=== PATIENT | male | born 1965 | race Hispanic/Latino ===

== ENCOUNTER 2021-02-05 22:20 | Inpatient (IN) | payer SELFPAY ==
[~2021-02-05] VITALS: Ht 165.1 cm; Wt 88.2 kg
[~2021-02-05 22:20] MED LIST: ETOMIDATE 20MG VIAL IVP ONE; ROCURONIUM BROMIDE 10MG/1ML 5ML VL IV ONE
[2021-02-05 23:02] LABS: BASOPHILS % (AUTO) 0.2 % (0.0-5.0); EOSINOPHILS % (AUTO) 0.1 % (0.0-8.0); HEMATOCRIT 47.4 % (42-54); MEAN CORPUSCULAR HEMOGLOBIN 30.8 pg (27.0-33.0); MEAN CORPUSCULAR HGB CONC 31.6 g/dL (32.0-36.0); MEAN CORPUSCULAR VOLUME 97.3 fL (79-99); MONOCYTES % (AUTO) 8.3 % (3.0-13.0); PLATELET COUNT (AUTO) 148 K/uL (130-400); RED BLOOD CELL COUNT(AUTO) 4.87 MIL/uL (4.50-6.20); RED CELL DISTRIBUTION WIDTH 12.8 % (11.0-15.5); WHITE BLOOD COUNT (AUTO) 9.2 K/uL (4.8-10.8)
[2021-02-05 23:12] LABS: CREATININE 1.1 mg/dL (0.5-1.5); POTASSIUM 4.3 mmol/L (3.5-5.1)
[2021-02-05 23:16] LABS: ALBUMIN 3.4 g/dL (3.5-5.0); BILIRUBIN,TOTAL 0.3 mg/dL (0.2-1.0); TOTAL PROTEIN, SERUM 7.5 g/dL (6.0-8.3)
[2021-02-05] MEDS ORDERED: SOLU-MEDROL 125MG VIAL IVP ONE (23:45)
[2021-02-05 23:51] LABS: INR 0.94 (0.85-1.15); PROTHROMBIN TIME 10.3 SEC (9.6-11.6)
[2021-02-05 23:53] LABS: PARTIAL THROMBOPLASTIN TIME 34.6 SEC (26.3-35.5)
[2021-02-06] VITALS (11 sets, daily range): BP systolic 85–142; BP diastolic 32–89
[2021-02-06 00:09] LABS: ABG BASE EXCESS 0.9 mmol/L (-2.0-3.0); ABG HCO3 30.3 mmol/L (21.0-28.0); ABG OXYGEN SATURATION 84.4 % (95.0-99.0); ABG PCO2 71 mmHg (35-48)
[2021-02-06] MEDS ORDERED: SOLU-MEDROL 125MG VIAL ONE (00:33)
[2021-02-06] MEDS ORDERED: ONDANSETRON 4MG INJ IV PRN (01:15)
[2021-02-06] MEDS ORDERED: LACTULOSE 20 GM/30 ML UDCUP PO PRN (01:15)
[2021-02-06] MEDS ORDERED: MAG/ALUM/SIMETH 30 ML UDCUP PO PRN (01:15)
[2021-02-06] MEDS ORDERED: CEFTRIAXONE 2GM VIAL IVP ONE (01:15)
[2021-02-06] MEDS ORDERED: SOLU-MEDROL 125MG VIAL IVP ONE (01:15)
[2021-02-06] MEDS ORDERED: GUAIFENESIN-DM 200/20 MG 10 ML PO PRN (01:15)
[2021-02-06] MEDS ORDERED: NITROGLYCERIN 0.4 MG SL TAB SL PRN (01:15)
[2021-02-06] MEDS ORDERED: ACETAMINOPHEN 325 MG TAB PO PRN ×2 (01:15)
[2021-02-06] MEDS ORDERED: DEXAMETHASONE SOD PHOSPHATE 4 MG/ML 1ML VIAL IVP SCH (01:15)
[2021-02-06 01:25] LABS: ABG BASE EXCESS 0.5 mmol/L (-2.0-3.0); ABG HCO3 30.1 mmol/L (21.0-28.0); ABG PCO2 72 mmHg (35-48)
[2021-02-06] MEDS ORDERED: 0.9% NACL 250ML IVPB SCH (01:30)
[2021-02-06] MEDS ORDERED: AZITHROMYCIN 500MG VIAL IVPB SCH (01:30)
[2021-02-06] MEDS ORDERED: CEFTRIAXONE 2GM VIAL IVP SCH (01:30)
[2021-02-06 02:20] LABS: FIBRINOGEN 522 mg/dL (180-350)
[2021-02-06 02:21] LABS: CRP QUANTITATIVE 117.5 mg/L (0.00-9.0)
[2021-02-06 02:23] LABS: ABG BASE EXCESS -0.8 mmol/L (-2.0-3.0); ABG OXYGEN SATURATION 93.6 % (95.0-99.0); ABG PCO2 73 mmHg (35-48)
[2021-02-06] MEDS: AZITHROMYCIN 500MG+NS 250ML 250 ML IV SCH ×2 (02:40→09:07)
[2021-02-06 02:52] LABS: D-DIMER 791 ng/mL (0-500)
[2021-02-06 03:46] LABS: APPEARANCE,URINE Clear (CLEAR); BILIRUBIN,URINE Negative (NEGATIVE); COLOR,URINE Yellow (YELLOW); GLUCOSE, URINE (UA) Negative (NEGATIVE); KETONES,URINE Negative (NEGATIVE); LEUKOCYTE ESTERASE ,URINE Negative (NEGATIVE); NITRATE,URINE Negative (NEGATIVE); OCCULT BLOOD,URINE Negative (NEGATIVE); PROTEIN,URINE Negative (NEGATIVE)
[2021-02-06 03:54] LABS: AMPHET/METH SCREEN,URINE NEGATIVE (NEGATIVE); BARBITURATE SCREEN, URINE NEGATIVE (NEGATIVE); BENZODIAZEPINES SCREEN,URINE NEGATIVE (NEGATIVE); CANNABINOID SCREEN,URINE NEGATIVE (NEGATIVE); COCAINE SCREEN,URINE POSITIVE (NEGATIVE); OPIATE SCREEN,URINE POSITIVE (NEGATIVE); PHENCYCLIDINE SCREEN,URINE NEGATIVE (NEGATIVE)
[2021-02-06] MEDS: INSULIN HUMULIN R 100 UNIT/ML 3ML SQ SCH ×4 (06:58→21:00)
[2021-02-06] MEDS ORDERED: GUAIFENESIN SUGAR-FREE 100 MG/5 ML UDCUP ONE (08:57)
[2021-02-06] MEDS ORDERED: FAMOTIDINE 20MG TAB ONE (08:58)
[2021-02-06] MEDS ORDERED: 0.9% NACL 250ML 250 ML ONE (08:59)
[2021-02-06] MEDS ORDERED: IPRATROPIUM/ALBUTEROL SULFATE 3 ML SOLUTION IH SCH ×2 (09:00→14:00)
[2021-02-06] MEDS ORDERED: FAMOTIDINE 20MG VIAL IV SCH (09:00)
[2021-02-06] MEDS: ENOXAPARIN SODIUM 40 MG/0.4 ML SYRINGE SQ SCH (09:07)
[2021-02-06] MEDS ORDERED: SOLU-MEDROL 40MG VIAL IVP SCH (09:39)
[2021-02-06] MEDS: IPRATROPIUM/ALBUTEROL SULFATE 3 ML SOLUTION IH SCH ×3 (10:52→23:18)
[2021-02-06] MEDS ORDERED: PIP/TAZ ZOSYN 3.375G 3.375 GM VIAL IVPB SCH (11:15)
[2021-02-06] MEDS ORDERED: FURO20TA4 PO (12:41)
[2021-02-06] MEDS ORDERED: DOXY100T2 PO (12:41)
[2021-02-06] MEDS ORDERED: OSEL75 PO (12:41)
[2021-02-06] MEDS ORDERED: ATOR10TA69 PO (12:41)
[2021-02-06] MEDS ORDERED: MONT10TA32 PO (12:41)
[2021-02-06] MEDS ORDERED: ALBU8.5H8 IH (12:44)
[2021-02-06] MEDS ORDERED: IPRNEB IH (12:44)
[2021-02-06] MEDS: 0.9%NACL 50ML 50 ML IV SCH ×2 (13:34→20:49)
[2021-02-06] MEDS: ZOSYN 3.375GM +NS 50ML IV SCH ×2 (13:34→20:47)
[2021-02-06] MEDS: GUAIFENESIN-DM 200/20 MG 10 ML PO PRN ×3 (13:34→21:49)
[2021-02-06] MEDS ORDERED: ALBUTEROL INHALER 90MCG/INH IH SCH (14:00)
[2021-02-06] MEDS: FUROSEMIDE 20 MG TABLET PO SCH (16:12)
[2021-02-06] MEDS: BENZONATATE 100 MG CAPSULE PO PRN ×2 (18:03→21:49)
[2021-02-06] MEDS ORDERED: IPRATROPIUM/ALBUTEROL SULFATE 3 ML SOLUTION IH ONE (18:36)
[2021-02-06] MEDS: BUDESONIDE 0.5 MG/2 ML INH IH SCH (19:23)
[2021-02-06] MEDS: ACETAMINOPHEN WITH CODEINE 1 TAB TAB PO PRN (19:25)
[2021-02-06] MEDS: ATORVASTATIN 10 MG TABLET PO SCH (20:48)
[2021-02-06] MEDS: SOLU-MEDROL 125MG VIAL IVP SCH (20:48)
[2021-02-06] MEDS: MONTELUKAST SODIUM 10 MG TAB PO SCH (20:49)
[2021-02-06] MEDS ORDERED: SODIUM CHLORIDE 3% FOR INHALATION 4 ML/AMP VIAL.NEB IH ONE (22:39)
[2021-02-07] VITALS (24 sets, daily range): BP systolic 87–165; BP diastolic 58–116
[2021-02-07] MEDS ORDERED: LORAZEPAM 2 MG/ML 1 ML VIAL IVP ONE
[2021-02-07] MEDS ORDERED: GUAIFENESIN-CODEINE 5 ML SYRUP PO ONE (00:15)
[2021-02-07] MEDS: GUAIFENESIN-CODEINE 5 ML SYRUP PO PRN (00:22)
[2021-02-07] MEDS ORDERED: LORAZEPAM 2 MG/ML 1 ML VIAL ONE (01:06)
[2021-02-07 04:00] LABS: ABG BASE EXCESS 1.7 mmol/L (-2.0-3.0); ABG HCO3 36.9 mmol/L (21.0-28.0); ABG OXYGEN SATURATION 90.9 % (95.0-99.0); ABG PCO2 133 mmHg (35-48)
[2021-02-07 04:01] LABS: BASOPHILS % (AUTO) 0.1 % (0.0-5.0); LYMPHOCYTES % (AUTO) 3.3 % (21.0-51.0); MEAN CORPUSCULAR HEMOGLOBIN 30.5 pg (27.0-33.0); MEAN CORPUSCULAR HGB CONC 30.8 g/dL (32.0-36.0); MEAN CORPUSCULAR VOLUME 98.8 fL (79-99); MONOCYTES % (AUTO) 5.8 % (3.0-13.0); NEUTROPHILS % (AUTO) 90.4 % (40.0-77.0); PLATELET COUNT (AUTO) 160 K/uL (130-400); RED BLOOD CELL COUNT(AUTO) 4.86 MIL/uL (4.50-6.20); RED CELL DISTRIBUTION WIDTH 12.4 % (11.0-15.5); WHITE BLOOD COUNT (AUTO) 13.9 K/uL (4.8-10.8)
[2021-02-07 04:21] LABS: ALBUMIN 3.4 g/dL (3.5-5.0); BILIRUBIN,TOTAL 0.3 mg/dL (0.2-1.0); MAGNESIUM 2.5 mg/dL (1.80-2.40); TOTAL PROTEIN, SERUM 7.7 g/dL (6.0-8.3)
[2021-02-07] MEDS ORDERED: PROPOFOL 1000 MG/100 ML 100 ML IV ONE (04:39)
[2021-02-07] MEDS: 0.9%NACL 50ML 50 ML IV SCH ×3 (04:49→20:45)
[2021-02-07] MEDS: ZOSYN 3.375GM +NS 50ML IV SCH ×3 (04:59→20:45)
[2021-02-07] MEDS ORDERED: MIDAZOLAM HCL 50 MG in 0.9%NACL 50ML 50 ML IV SCH (05:15)
[2021-02-07 05:32] LABS: ABG BASE EXCESS 0.1 mmol/L (-2.0-3.0); ABG HCO3 32.4 mmol/L (21.0-28.0); ABG OXYGEN SATURATION 95.1 % (95.0-99.0); ABG PCO2 97 mmHg (35-48)
[2021-02-07] MEDS ORDERED: MIDAZOLAM HCL 100 MG in 0.9%NACL 50ML 100 ML IV SCH (05:45)
[2021-02-07] MEDS: INSULIN HUMULIN R 100 UNIT/ML 3ML SQ SCH ×4 (05:50→20:46)
[2021-02-07] MEDS: IPRATROPIUM/ALBUTEROL SULFATE 3 ML SOLUTION IH SCH ×4 (06:32→23:20)
[2021-02-07] MEDS: BUDESONIDE 0.5 MG/2 ML INH IH SCH ×2 (06:45→18:50)
[2021-02-07] MEDS: PROPOFOL 1000 MG/100 ML 100 ML IV SCH ×6 (06:48→23:23)
[2021-02-07] MEDS: MIDAZOLAM 100MG-0.9% NS 100ML 100 ML IV SCH ×2 (07:11→17:36)
[2021-02-07] MEDS ORDERED: FOLIC ACID 5 MG/ML VIAL IV ONE (08:45)
[2021-02-07] MEDS: SOLU-MEDROL 125MG VIAL IVP SCH ×2 (09:49→20:46)
[2021-02-07] MEDS: FUROSEMIDE 20 MG TABLET PO SCH (09:50)
[2021-02-07] MEDS: ENOXAPARIN SODIUM 40 MG/0.4 ML SYRINGE SQ SCH (09:50)
[2021-02-07] MEDS ORDERED: THIAMINE HCL IM SCH (10:00)
[2021-02-07] MEDS ORDERED: FOLIC ACID IM SCH (10:00)
[2021-02-07] MEDS ORDERED: [UNRECOGNIZED DRUG - OTHER] IM SCH (10:00)
[2021-02-07 10:48] LABS: ABG BASE EXCESS 5.7 mmol/L (-2.0-3.0); ABG HCO3 32.3 mmol/L (21.0-28.0); ABG OXYGEN SATURATION 90.1 % (95.0-99.0); ABG PCO2 55 mmHg (35-48)
[2021-02-07] MEDS: ATORVASTATIN 10 MG TABLET PO SCH (20:46)
[2021-02-07] MEDS: MONTELUKAST SODIUM 10 MG TAB PO SCH (20:46)
[2021-02-08] VITALS (24 sets, daily range): BP systolic 92–167; BP diastolic 59–94
[2021-02-08] MEDS: MIDAZOLAM 100MG-0.9% NS 100ML 100 ML IV SCH ×3 (00:52→22:06)
[2021-02-08] MEDS: PROPOFOL 1000 MG/100 ML 100 ML IV SCH ×5 (02:59→16:29)
[2021-02-08 04:03] LABS: HEMATOCRIT 41.8 % (42-54); MEAN CORPUSCULAR HEMOGLOBIN 31.7 pg (27.0-33.0); MEAN CORPUSCULAR HGB CONC 32.3 g/dL (32.0-36.0); MEAN CORPUSCULAR VOLUME 98.1 fL (79-99); RED BLOOD CELL COUNT(AUTO) 4.26 MIL/uL (4.50-6.20); RED CELL DISTRIBUTION WIDTH 12.8 % (11.0-15.5); WHITE BLOOD COUNT (AUTO) 8.4 K/uL (4.8-10.8)
[2021-02-08] MEDS: 0.9%NACL 50ML 50 ML IV SCH ×3 (04:23→20:43)
[2021-02-08] MEDS: ZOSYN 3.375GM +NS 50ML IV SCH ×3 (04:23→20:43)
[2021-02-08 04:48] LABS: ALBUMIN 2.8 g/dL (3.5-5.0); BILIRUBIN,TOTAL 0.4 mg/dL (0.2-1.0); CREATININE 0.8 mg/dL (0.5-1.5); POTASSIUM 4.5 mmol/L (3.5-5.1); TOTAL PROTEIN, SERUM 6.4 g/dL (6.0-8.3)
[2021-02-08 05:23] LABS: ABG BASE EXCESS 3.8 mmol/L (-2.0-3.0); ABG PCO2 80 mmHg (35-48)
[2021-02-08] MEDS ORDERED: FENTANYL 2500MCG+NS 250ML 250 ML IV ONE (05:51)
[2021-02-08] MEDS: IPRATROPIUM/ALBUTEROL SULFATE 3 ML SOLUTION IH SCH ×4 (06:09→23:30)
[2021-02-08] MEDS: BUDESONIDE 0.5 MG/2 ML INH IH SCH ×2 (06:18→18:15)
[2021-02-08] MEDS: INSULIN HUMULIN R 100 UNIT/ML 3ML SQ SCH ×4 (06:28→23:00)
[2021-02-08 07:33] LABS: ABG BASE EXCESS 5.9 mmol/L (-2.0-3.0); ABG HCO3 32.2 mmol/L (21.0-28.0); ABG OXYGEN SATURATION 92.3 % (95.0-99.0); ABG PCO2 53 mmHg (35-48)
[2021-02-08] MEDS: THIAMINE HCL 100 MG/ML 2ML VIAL IM SCH (07:43)
[2021-02-08] MEDS: SOLU-MEDROL 125MG VIAL IVP SCH ×2 (07:43→20:43)
[2021-02-08] MEDS: FUROSEMIDE 20 MG TABLET PO SCH (07:43)
[2021-02-08] MEDS: ENOXAPARIN SODIUM 40 MG/0.4 ML SYRINGE SQ SCH (07:44)
[2021-02-08] MEDS ORDERED: PHARMACY COMMUNICATION MISC SCH (12:43)
[2021-02-08 16:30] LABS: ABG BASE EXCESS 2.5 mmol/L (-2.0-3.0); ABG OXYGEN SATURATION 95.5 % (95.0-99.0); ABG PCO2 52 mmHg (35-48)
[2021-02-08] MEDS ORDERED: FENTANYL 2500MCG+NS 250ML 250 ML IV SCH (16:30)
[2021-02-08] MEDS: ATORVASTATIN 10 MG TABLET PO SCH (20:44)
[2021-02-08] MEDS: MONTELUKAST SODIUM 10 MG TAB PO SCH (20:44)
[2021-02-09] VITALS (21 sets, daily range): BP systolic 115–175; BP diastolic 64–104
[2021-02-09] MEDS: 0.9%NACL 50ML 50 ML IV SCH ×3 (04:37→20:41)
[2021-02-09] MEDS: ZOSYN 3.375GM +NS 50ML IV SCH ×3 (04:37→20:41)
[2021-02-09 06:20] LABS: EOSINOPHILS % (AUTO) 1.5 % (0.0-8.0); HEMATOCRIT 42.5 % (42-54); LYMPHOCYTES % (AUTO) 10.4 % (21.0-51.0); MEAN CORPUSCULAR HEMOGLOBIN 30.9 pg (27.0-33.0); MEAN CORPUSCULAR HGB CONC 31.8 g/dL (32.0-36.0); MEAN CORPUSCULAR VOLUME 97.3 fL (79-99); MONOCYTES % (AUTO) 12.7 % (3.0-13.0); PLATELET COUNT (AUTO) 142 K/uL (130-400); RED BLOOD CELL COUNT(AUTO) 4.37 MIL/uL (4.50-6.20); WHITE BLOOD COUNT (AUTO) 7.8 K/uL (4.8-10.8)
[2021-02-09 06:31] LABS: CREATININE 0.6 mg/dL (0.5-1.5); MAGNESIUM 2.5 mg/dL (1.80-2.40); POTASSIUM 4.3 mmol/L (3.5-5.1)
[2021-02-09] MEDS: IPRATROPIUM/ALBUTEROL SULFATE 3 ML SOLUTION IH SCH ×4 (06:36→23:44)
[2021-02-09] MEDS: BUDESONIDE 0.5 MG/2 ML INH IH SCH ×2 (06:36→18:39)
[2021-02-09 06:45] LABS: ABG BASE EXCESS 3.5 mmol/L (-2.0-3.0); ABG HCO3 29.1 mmol/L (21.0-28.0); ABG OXYGEN SATURATION 95.8 % (95.0-99.0); ABG PCO2 47 mmHg (35-48)
[2021-02-09] MEDS: INSULIN HUMULIN R 100 UNIT/ML 3ML SQ SCH ×3 (06:49→17:25)
[2021-02-09] MEDS: SOLU-MEDROL 125MG VIAL IVP SCH ×2 (08:16→20:41)
[2021-02-09] MEDS: THIAMINE HCL 100 MG/ML 2ML VIAL IM SCH (08:16)
[2021-02-09] MEDS: FUROSEMIDE 20 MG TABLET PO SCH (08:16)
[2021-02-09] MEDS: ENOXAPARIN SODIUM 40 MG/0.4 ML SYRINGE SQ SCH (08:17)
[2021-02-09] MEDS: MIDAZOLAM 100MG-0.9% NS 100ML 100 ML IV SCH (09:30)
[2021-02-09] MEDS ORDERED: HYDRALAZINE 20MG/ML VIAL IV PRN ×2 (10:30→12:00)
[2021-02-09] MEDS: CHLORHEXIDINE GLUCONATE 473 ML MOUTHWASH MM SCH ×2 (11:19→17:24)
[2021-02-09] MEDS: ATORVASTATIN 10 MG TABLET PO SCH (20:41)
[2021-02-09] MEDS: MONTELUKAST SODIUM 10 MG TAB PO SCH (20:41)
[2021-02-10] VITALS (24 sets, daily range): BP systolic 111–153; BP diastolic 63–93
[2021-02-10] MEDS: CHLORHEXIDINE GLUCONATE 473 ML MOUTHWASH MM SCH ×3 (00:10→11:13)
[2021-02-10] MEDS: ZOSYN 3.375GM +NS 50ML IV SCH ×3 (04:57→20:13)
[2021-02-10] MEDS: 0.9%NACL 50ML 50 ML IV SCH ×3 (04:57→20:13)
[2021-02-10] MEDS: MIDAZOLAM 100MG-0.9% NS 100ML 100 ML IV SCH (04:58)
[2021-02-10] MEDS: INSULIN HUMULIN R 100 UNIT/ML 3ML SQ SCH ×5 (06:00→20:16)
[2021-02-10 06:34] LABS: BASOPHILS % (AUTO) 0.2 % (0.0-5.0); EOSINOPHILS % (AUTO) 0.9 % (0.0-8.0); HEMATOCRIT 43.2 % (42-54); LYMPHOCYTES % (AUTO) 10.4 % (21.0-51.0); MEAN CORPUSCULAR HEMOGLOBIN 29.8 pg (27.0-33.0); MEAN CORPUSCULAR HGB CONC 31.7 g/dL (32.0-36.0); MEAN CORPUSCULAR VOLUME 94.1 fL (79-99); MONOCYTES % (AUTO) 8.3 % (3.0-13.0); NEUTROPHILS % (AUTO) 79.8 % (40.0-77.0); PLATELET COUNT (AUTO) 169 K/uL (130-400); RED BLOOD CELL COUNT(AUTO) 4.59 MIL/uL (4.50-6.20); RED CELL DISTRIBUTION WIDTH 12.9 % (11.0-15.5); WHITE BLOOD COUNT (AUTO) 8.2 K/uL (4.8-10.8)
[2021-02-10 06:49] LABS: CREATININE 0.6 mg/dL (0.5-1.5); POTASSIUM 4.1 mmol/L (3.5-5.1)
[2021-02-10] MEDS: IPRATROPIUM/ALBUTEROL SULFATE 3 ML SOLUTION IH SCH ×4 (06:50→23:16)
[2021-02-10] MEDS: BUDESONIDE 0.5 MG/2 ML INH IH SCH ×2 (06:50→18:18)
[2021-02-10] MEDS ORDERED: DEXMEDETOMIDINE HCL 400 MCG in 0.9%NACL 100ML 100 ML IV SCH (08:30)
[2021-02-10] MEDS: DIAZEPAM 5 MG TABLET NG SCH ×2 (09:23→16:36)
[2021-02-10] MEDS: PANTOPRAZOLE 40 MG/VIAL IVP SCH (09:23)
[2021-02-10] MEDS: FOLIC ACID 5 MG/ML VIAL IV SCH (09:24)
[2021-02-10] MEDS: ENOXAPARIN SODIUM 40 MG/0.4 ML SYRINGE SQ SCH (09:24)
[2021-02-10] MEDS: FUROSEMIDE 20 MG TABLET PO SCH (09:25)
[2021-02-10] MEDS: THIAMINE HCL 100 MG/ML 2ML VIAL IM SCH (09:25)
[2021-02-10] MEDS: SOLU-MEDROL 125MG VIAL IVP SCH ×2 (09:26→20:13)
[2021-02-10 11:57] LABS: ABG BASE EXCESS 2.9 mmol/L (-2.0-3.0); ABG HCO3 30.7 mmol/L (21.0-28.0); ABG OXYGEN SATURATION 93.7 % (95.0-99.0); ABG PCO2 61 mmHg (35-48)
[2021-02-10 19:18] LABS: ABG BASE EXCESS 5.5 mmol/L (-2.0-3.0); ABG HCO3 33.4 mmol/L (21.0-28.0); ABG OXYGEN SATURATION 94.8 % (95.0-99.0); ABG PCO2 62 mmHg (35-48)
[2021-02-10] MEDS: ATORVASTATIN 10 MG TABLET PO SCH (20:15)
[2021-02-10] MEDS: MONTELUKAST SODIUM 10 MG TAB PO SCH (20:15)
[2021-02-11] VITALS (24 sets, daily range): BP systolic 98–148; BP diastolic 59–91
[2021-02-11] MEDS: DIAZEPAM 5 MG TABLET NG SCH ×2 (01:00→08:28)
[2021-02-11 03:32] LABS: HEMATOCRIT 47.2 % (42-54); MEAN CORPUSCULAR HEMOGLOBIN 30.3 pg (27.0-33.0); MEAN CORPUSCULAR HGB CONC 31.6 g/dL (32.0-36.0); MEAN CORPUSCULAR VOLUME 96.1 fL (79-99); RED BLOOD CELL COUNT(AUTO) 4.91 MIL/uL (4.50-6.20); RED CELL DISTRIBUTION WIDTH 12.3 % (11.0-15.5)
[2021-02-11 03:46] LABS: CREATININE 0.6 mg/dL (0.5-1.5); POTASSIUM 4.5 mmol/L (3.5-5.1)
[2021-02-11 05:07] LABS: ABG BASE EXCESS 5.6 mmol/L (-2.0-3.0); ABG HCO3 34.2 mmol/L (21.0-28.0); ABG OXYGEN SATURATION 93.2 % (95.0-99.0); ABG PCO2 67 mmHg (35-48)
[2021-02-11] MEDS: INSULIN HUMULIN R 100 UNIT/ML 3ML SQ SCH ×4 (05:15→21:00)
[2021-02-11] MEDS: 0.9%NACL 50ML 50 ML IV SCH ×3 (05:15→20:01)
[2021-02-11] MEDS: ZOSYN 3.375GM +NS 50ML IV SCH ×3 (05:15→20:01)
[2021-02-11] MEDS: IPRATROPIUM/ALBUTEROL SULFATE 3 ML SOLUTION IH SCH ×4 (06:24→23:55)
[2021-02-11] MEDS: BUDESONIDE 0.5 MG/2 ML INH IH SCH ×2 (06:24→18:53)
[2021-02-11] MEDS ORDERED: COMPOUND IV REFRIGERATED 1 EACH IVSOLN MISC PRN (08:00)
[2021-02-11] MEDS: ENOXAPARIN SODIUM 40 MG/0.4 ML SYRINGE SQ SCH (08:26)
[2021-02-11] MEDS: THIAMINE HCL 100 MG/ML 2ML VIAL IM SCH (08:27)
[2021-02-11] MEDS: PANTOPRAZOLE 40 MG/VIAL IVP SCH (08:27)
[2021-02-11] MEDS: FOLIC ACID 5 MG/ML VIAL IV SCH (08:27)
[2021-02-11] MEDS: SOLU-MEDROL 125MG VIAL IVP SCH ×2 (08:27→20:02)
[2021-02-11] MEDS: FUROSEMIDE 20 MG TABLET PO SCH (08:28)
[2021-02-11] MEDS: ATORVASTATIN 10 MG TABLET PO SCH (20:02)
[2021-02-11] MEDS: MONTELUKAST SODIUM 10 MG TAB PO SCH (20:02)
[2021-02-11] MEDS: GUAIFENESIN-DM 200/20 MG 10 ML PO PRN (21:18)
[2021-02-12] VITALS (15 sets, daily range): BP systolic 119–158; BP diastolic 70–101
[2021-02-12] MEDS: GUAIFENESIN-DM 200/20 MG 10 ML PO PRN ×3 (02:58→16:57)
[2021-02-12 03:45] LABS: BASOPHILS % (AUTO) 0.2 % (0.0-5.0); HEMATOCRIT 48.2 % (42-54); LYMPHOCYTES % (AUTO) 7.3 % (21.0-51.0); MEAN CORPUSCULAR HEMOGLOBIN 30.4 pg (27.0-33.0); MEAN CORPUSCULAR HGB CONC 31.7 g/dL (32.0-36.0); MEAN CORPUSCULAR VOLUME 95.6 fL (79-99); MONOCYTES % (AUTO) 9.9 % (3.0-13.0); NEUTROPHILS % (AUTO) 81.9 % (40.0-77.0); PLATELET COUNT (AUTO) 201 K/uL (130-400); RED BLOOD CELL COUNT(AUTO) 5.04 MIL/uL (4.50-6.20); WHITE BLOOD COUNT (AUTO) 9.6 K/uL (4.8-10.8)
[2021-02-12 04:05] LABS: CREATININE 0.6 mg/dL (0.5-1.5); MAGNESIUM 2.4 mg/dL (1.80-2.40); PHOSPHORUS 3.9 mg/dL (2.5-4.9); POTASSIUM 4.3 mmol/L (3.5-5.1)
[2021-02-12] MEDS: ZOSYN 3.375GM +NS 50ML IV SCH (04:42)
[2021-02-12] MEDS: 0.9%NACL 50ML 50 ML IV SCH (04:42)
[2021-02-12] MEDS: IPRATROPIUM/ALBUTEROL SULFATE 3 ML SOLUTION IH SCH ×4 (06:12→23:45)
[2021-02-12] MEDS: BUDESONIDE 0.5 MG/2 ML INH IH SCH ×2 (06:13→19:06)
[2021-02-12] MEDS: INSULIN HUMULIN R 100 UNIT/ML 3ML SQ SCH ×4 (07:30→20:54)
[2021-02-12] MEDS: THIAMINE HCL 100 MG/ML 2ML VIAL IM SCH (09:00)
[2021-02-12] MEDS ORDERED: PANTOPRAZOLE 40 MG TAB DR ONE (09:20)
[2021-02-12] MEDS ORDERED: FOLIC ACID 1 MG TABLET ONE (09:20)
[2021-02-12] MEDS: FUROSEMIDE 20 MG TABLET PO SCH (09:26)
[2021-02-12] MEDS: SOLU-MEDROL 125MG VIAL IVP SCH (09:26)
[2021-02-12] MEDS: ENOXAPARIN SODIUM 40 MG/0.4 ML SYRINGE SQ SCH (09:27)
[2021-02-12] MEDS: BENZONATATE 100 MG CAPSULE PO PRN ×2 (09:27→23:34)
[2021-02-12] MEDS: FOLIC ACID 1 MG TABLET PO SCH (11:05)
[2021-02-12] MEDS: PANTOPRAZOLE 40 MG TAB DR PO SCH (11:06)
[2021-02-12] MEDS ORDERED: SOLU-MEDROL 125MG VIAL ONE (19:26)
[2021-02-12] MEDS: ATORVASTATIN 10 MG TABLET PO SCH (20:02)
[2021-02-12] MEDS: MONTELUKAST SODIUM 10 MG TAB PO SCH (20:03)
[2021-02-12] MEDS: SOLU-MEDROL 40MG VIAL IVP SCH (20:03)
[2021-02-13] VITALS (7 sets, daily range): BP systolic 122–145; BP diastolic 67–109
[2021-02-13] MEDS: ACETAMINOPHEN WITH CODEINE 1 TAB TAB PO PRN (00:43)
[2021-02-13 05:27] LABS: HEMATOCRIT 47.6 % (42-54); MEAN CORPUSCULAR HEMOGLOBIN 30.4 pg (27.0-33.0); MEAN CORPUSCULAR HGB CONC 32.6 g/dL (32.0-36.0); MEAN CORPUSCULAR VOLUME 93.3 fL (79-99); RED BLOOD CELL COUNT(AUTO) 5.1 MIL/uL (4.50-6.20); RED CELL DISTRIBUTION WIDTH 11.9 % (11.0-15.5); WHITE BLOOD COUNT (AUTO) 10.9 K/uL (4.8-10.8)
[2021-02-13 05:52] LABS: CREATININE 0.7 mg/dL (0.5-1.5); MAGNESIUM 2.4 mg/dL (1.80-2.40); PHOSPHORUS 3.2 mg/dL (2.5-4.9); POTASSIUM 3.9 mmol/L (3.5-5.1)
[2021-02-13] MEDS: IPRATROPIUM/ALBUTEROL SULFATE 3 ML SOLUTION IH SCH ×4 (06:55→23:33)
[2021-02-13] MEDS: BUDESONIDE 0.5 MG/2 ML INH IH SCH ×2 (06:55→20:02)
[2021-02-13] MEDS: INSULIN HUMULIN R 100 UNIT/ML 3ML SQ SCH ×4 (07:03→21:00)
[2021-02-13] MEDS: FOLIC ACID 1 MG TABLET PO SCH (09:10)
[2021-02-13] MEDS: THIAMINE HCL 100 MG TABLET PO SCH (09:10)
[2021-02-13] MEDS: PANTOPRAZOLE 40 MG TAB DR PO SCH (09:10)
[2021-02-13] MEDS: SOLU-MEDROL 40MG VIAL IVP SCH ×2 (09:11→21:34)
[2021-02-13] MEDS: FUROSEMIDE 20 MG TABLET PO SCH (09:11)
[2021-02-13] MEDS: ENOXAPARIN SODIUM 40 MG/0.4 ML SYRINGE SQ SCH (09:12)
[2021-02-13] MEDS ORDERED: KCL 20 MEQ ERTAB PO SCH (12:30)
[2021-02-13] MEDS: MONTELUKAST SODIUM 10 MG TAB PO SCH (21:34)
[2021-02-13] MEDS: DILTIAZEM 60MG TAB PO SCH (21:34)
[2021-02-13] MEDS: ATORVASTATIN 10 MG TABLET PO SCH (21:34)
[2021-02-13] MEDS ORDERED: TEMAZEPAM 15 MG CAPSULE PO ONE (22:30)
[2021-02-14] VITALS: BP 107/65
[2021-02-14 04:00] VITALS: BP 107/64
[2021-02-14] MEDS: DILTIAZEM 60MG TAB PO SCH ×2 (06:01→13:24)
[2021-02-14] MEDS: INSULIN HUMULIN R 100 UNIT/ML 3ML SQ SCH ×2 (06:02→11:30)
[2021-02-14] MEDS: GUAIFENESIN-CODEINE 5 ML SYRUP PO PRN (06:16)
[2021-02-14 06:28] LABS: CREATININE 0.6 mg/dL (0.5-1.5); MAGNESIUM 2.4 mg/dL (1.80-2.40); POTASSIUM 5.1 mmol/L (3.5-5.1)
[2021-02-14 07:05] LABS: BASOPHILS % (AUTO) 0.2 % (0.0-5.0); HEMATOCRIT 48.7 % (42-54); LYMPHOCYTES % (AUTO) 7.7 % (21.0-51.0); MEAN CORPUSCULAR HEMOGLOBIN 30.3 pg (27.0-33.0); MEAN CORPUSCULAR HGB CONC 31.6 g/dL (32.0-36.0); MEAN CORPUSCULAR VOLUME 95.9 fL (79-99); MONOCYTES % (AUTO) 8.5 % (3.0-13.0); NEUTROPHILS % (AUTO) 82.8 % (40.0-77.0); PLATELET COUNT (AUTO) 174 K/uL (130-400); RED BLOOD CELL COUNT(AUTO) 5.08 MIL/uL (4.50-6.20)
[2021-02-14] MEDS: IPRATROPIUM/ALBUTEROL SULFATE 3 ML SOLUTION IH SCH ×2 (07:24→11:57)
[2021-02-14] MEDS: BUDESONIDE 0.5 MG/2 ML INH IH SCH (07:24)
[2021-02-14 08:24] VITALS: BP 120/73
[2021-02-14] MEDS: FUROSEMIDE 20 MG TABLET PO SCH (09:26)
[2021-02-14] MEDS: THIAMINE HCL 100 MG TABLET PO SCH (09:26)
[2021-02-14] MEDS: FOLIC ACID 1 MG TABLET PO SCH (09:26)
[2021-02-14] MEDS: SOLU-MEDROL 40MG VIAL IVP SCH (09:27)
[2021-02-14] MEDS: ENOXAPARIN SODIUM 40 MG/0.4 ML SYRINGE SQ SCH (09:27)
[2021-02-14] MEDS: PANTOPRAZOLE 40 MG TAB DR PO SCH (09:27)
[2021-02-14 12:13] VITALS: BP 118/83
[2021-02-14] MEDS ORDERED: DILT120T5 PO (13:14)
[2021-02-14] MEDS ORDERED: METH4TAB3 PO (13:14)
[2021-02-14] MEDS ORDERED: PANT40TA PO (13:14)
[2021-02-14] MEDS ORDERED: ALBU8.5H8 IH (13:14)
[2021-02-14] MEDS ORDERED: BUDE180H IH (13:14)
== END 2021-02-14 14:42 | disposition home or self-care (01) | DRG 208 ==
LOC: EDH 22:20 → EDHIP 22:21 → 2BH 02-06 08:13 → 2DH 02-06 10:29 → 3DH 02-12 18:07 → 4DH 02-13 13:21
PROVIDERS: ADMIT Family Medicine; ATTEND Family Medicine
PROC: 5A09357 Assistance with Respiratory Ventilation, Less than 24 Consecutive Hours, Continuous Positive Airway Pressure (ICD-10-PCS; 2021-02-06)
PROC: 5A1945Z Respiratory Ventilation, 24-96 Consecutive Hours (ICD-10-PCS; principal; 2021-02-07)
PROC: 0BH17EZ Insertion of Endotracheal Airway into Trachea, Via Natural or Artificial Opening (ICD-10-PCS; 2021-02-07)
PROC: 02H633Z Insertion of Infusion Device into Right Atrium, Percutaneous Approach (ICD-10-PCS; 2021-02-07)
PROC: B548ZZA Ultrasonography of Superior Vena Cava, Guidance (ICD-10-PCS; 2021-02-07)
PROC: 5A1935Z Respiratory Ventilation, Less than 24 Consecutive Hours (ICD-10-PCS; 2021-02-10)
PROC: 5A09357 Assistance with Respiratory Ventilation, Less than 24 Consecutive Hours, Continuous Positive Airway Pressure (ICD-10-PCS; 2021-02-10)
PROC: 5A09357 Assistance with Respiratory Ventilation, Less than 24 Consecutive Hours, Continuous Positive Airway Pressure (ICD-10-PCS; 2021-02-11)
PROC: 5A09357 Assistance with Respiratory Ventilation, Less than 24 Consecutive Hours, Continuous Positive Airway Pressure (ICD-10-PCS; 2021-02-13)
DX: J18.9 Pneumonia, unspecified organism (principal); J96.21 Acute and chronic respiratory failure with hypoxia; J96.22 Acute and chronic respiratory failure with hypercapnia; I50.33 Acute on chronic diastolic (congestive) heart failure; J44.0 Chronic obstructive pulmonary disease with (acute) lower respiratory infection; E87.4 Mixed disorder of acid-base balance; J45.901 Unspecified asthma with (acute) exacerbation; J44.1 Chronic obstructive pulmonary disease with (acute) exacerbation; I11.0 Hypertensive heart disease with heart failure; G47.33 Obstructive sleep apnea (adult) (pediatric); F11.10 Opioid abuse, uncomplicated; F14.10 Cocaine abuse, uncomplicated; E66.01 Morbid (severe) obesity due to excess calories; I49.3 Ventricular premature depolarization; I48.0 Paroxysmal atrial fibrillation; K76.0 Fatty (change of) liver, not elsewhere classified; R16.0 Hepatomegaly, not elsewhere classified; F17.200 Nicotine dependence, unspecified, uncomplicated; Z20.822 Contact with and (suspected) exposure to COVID-19; Z91.19 Patient's noncompliance with other medical treatment and regimen; Z99.81 Dependence on supplemental oxygen; Z79.899 Other long term (current) drug therapy; Z91.041 Radiographic dye allergy status; Z68.35 Body mass index [BMI] 35.0-35.9, adult
CPT/HCPCS: 31500; 36415; 36600; 71045; 71250; 76705; 80048; 80053; 80061; 80305; 81003; 82435; 82728; 82803; 82947; 82948; 83605; 83615; 83735; 83880; 84100; 84132; 84145; 84295; 84484; 85018; 85025; 85027; 85378; 85384; 85610; 85730; 86140; 87040; 87071; 87205; 87449; 87635; 87804; 87880; 92526; 92610; 93005; 93306; 94002; 94003; 94640; 94660; 94667; 94668; 97039; C1751; C1894; C9113; C9803; G0378; J0456; J0696; J1650; J1815; J2060; J2543; J2704; J2920; J2930; J3010; J3411; J3490; J7050

== ENCOUNTER 2021-05-19 18:15 | Inpatient (IN) | payer SELFPAY ==
[~2021-05-19] VITALS: Ht 165.1 cm; Wt 91.4 kg
[~2021-05-19 18:15] MED LIST changes: +ALBU8.5H8 IH; +ATOR10TA69 PO; +BUDE180H IH; +DILT120T5 PO; +DOXY100T2 PO; +FURO20TA4 PO; +IPRNEB IH; +METH4TAB3 PO; +MONT10TA32 PO; +PANT40TA PO; -ROCURONIUM BROMIDE 10MG/1ML 5ML VL IV ONE; +SUCCINYLCHOLINE CHLORIDE 20 MG/ML 10 ML VIAL IVP ONE
[2021-05-19 18:51] LABS: BASOPHILS % (AUTO) 0.4 % (0.0-5.0); EOSINOPHILS % (AUTO) 0.1 % (0.0-8.0); HEMATOCRIT 46.8 % (42-54); LYMPHOCYTES % (AUTO) 8.9 % (21.0-51.0); MEAN CORPUSCULAR HEMOGLOBIN 30.3 pg (27.0-33.0); MEAN CORPUSCULAR VOLUME 97.9 fL (79-99); MONOCYTES % (AUTO) 16.5 % (3.0-13.0); NEUTROPHILS % (AUTO) 73.6 % (40.0-77.0); PLATELET COUNT (AUTO) 151 K/uL (130-400); RED BLOOD CELL COUNT(AUTO) 4.78 MIL/uL (4.50-6.20); RED CELL DISTRIBUTION WIDTH 13.1 % (11.0-15.5); WHITE BLOOD COUNT (AUTO) 7.9 K/uL (4.8-10.8)
[2021-05-19 19:13] LABS: ABG BASE EXCESS 2.6 mmol/L (-2.0-3.0); ABG OXYGEN SATURATION 87.8 % (95.0-99.0); ABG PCO2 81 mmHg (35-48)
[2021-05-19 19:14] LABS: CREATININE 0.9 mg/dL (0.5-1.5); POTASSIUM 3.5 mmol/L (3.5-5.1)
[2021-05-19 19:19] LABS: ALBUMIN 3.6 g/dL (3.5-5.0); BILIRUBIN,TOTAL 0.2 mg/dL (0.2-1.0); TOTAL PROTEIN, SERUM 7.8 g/dL (6.0-8.3)
[2021-05-19] MEDS ORDERED: 0.9% NACL 250ML IVPB ONE (20:30)
[2021-05-19] MEDS ORDERED: CEFTRIAXONE 1G VIAL IVP ONE (20:30)
[2021-05-19] MEDS ORDERED: SOLU-MEDROL 125MG VIAL IVP ONE (20:30)
[2021-05-19] MEDS ORDERED: AZITHROMYCIN 500MG+NS 250ML IV ONE (21:00)
[2021-05-19] MEDS ORDERED: ALBUTEROL 0.083% 2.5 MG/3 ML INH IH ONE ×3 (21:00)
[2021-05-19] MEDS ORDERED: LORAZEPAM 2 MG/ML 1 ML VIAL ONE (22:16)
[2021-05-19] MEDS ORDERED: ACETAMINOPHEN 325 MG TAB ONE (22:16)
[2021-05-19 23:53] LABS: ABG BASE EXCESS -1.1 mmol/L (-2.0-3.0); ABG HCO3 32.1 mmol/L (21.0-28.0); ABG OXYGEN SATURATION 78.5 % (95.0-99.0); ABG PCO2 104 mmHg (35-48)
[2021-05-20] VITALS (21 sets, daily range): BP systolic 80–165; BP diastolic 53–92
[2021-05-20] MEDS ORDERED: ALBUTEROL 0.083% 2.5 MG/3 ML INH IH ONE (00:01)
[2021-05-20] MEDS ORDERED: PROPOFOL 1000 MG/100 ML 100 ML IV ONE (00:38)
[2021-05-20 01:03] LABS: AMPHET/METH SCREEN,URINE NEGATIVE (NEGATIVE); BARBITURATE SCREEN, URINE NEGATIVE (NEGATIVE); BENZODIAZEPINES SCREEN,URINE NEGATIVE (NEGATIVE); CANNABINOID SCREEN,URINE NEGATIVE (NEGATIVE); COCAINE SCREEN,URINE POSITIVE (NEGATIVE); OPIATE SCREEN,URINE NEGATIVE (NEGATIVE); PHENCYCLIDINE SCREEN,URINE NEGATIVE (NEGATIVE)
[2021-05-20] MEDS: LEVOFLOXACIN 500 MG/D5W 100 ML 100 ML IV SCH ×2 (01:11→23:01)
[2021-05-20 02:17] LABS: ABG BASE EXCESS 3.4 mmol/L (-2.0-3.0); ABG HCO3 32.1 mmol/L (21.0-28.0); ABG OXYGEN SATURATION 92.4 % (95.0-99.0); ABG PCO2 68 mmHg (35-48)
[2021-05-20] MEDS ORDERED: FENTANYL 2500MCG+NS 250ML 250 ML IV ONE ×2 (02:39→19:19)
[2021-05-20] MEDS ORDERED: MIDAZOLAM HCL 5 MG/ML 2ML VIAL IV ONE (02:41)
[2021-05-20] MEDS ORDERED: MIDAZOLAM 50MG-0.9% NS 50ML 50 ML BAG IV SCH (03:00)
[2021-05-20] MEDS ORDERED: FENTANYL CITRATE PF 0.05 MG/ML 1,000 MCG in 0.9%NACL 100ML 100 ML IVPB SCH (03:00)
[2021-05-20] MEDS ORDERED: SOLU-MEDROL 125MG VIAL IVP SCH (05:00)
[2021-05-20] MEDS: IPRATROPIUM/ALBUTEROL SULFATE 3 ML SOLUTION IH SCH ×4 (06:13→19:18)
[2021-05-20 07:13] LABS: HEMATOCRIT 45.8 % (42-54); MEAN CORPUSCULAR VOLUME 96.8 fL (79-99); RED BLOOD CELL COUNT(AUTO) 4.73 MIL/uL (4.50-6.20); RED CELL DISTRIBUTION WIDTH 12.9 % (11.0-15.5); WHITE BLOOD COUNT (AUTO) 7.2 K/uL (4.8-10.8)
[2021-05-20 07:26] LABS: CREATININE 0.9 mg/dL (0.5-1.5); MAGNESIUM 2.4 mg/dL (1.80-2.40); POTASSIUM 4.7 mmol/L (3.5-5.1)
[2021-05-20] MEDS: INSULIN HUMULIN R 100 UNIT/ML 3ML SQ SCH ×3 (07:30→16:30)
[2021-05-20 08:16] LABS: ABG BASE EXCESS 4.3 mmol/L (-2.0-3.0); ABG HCO3 31.2 mmol/L (21.0-28.0); ABG OXYGEN SATURATION 89.8 % (95.0-99.0); ABG PCO2 55 mmHg (35-48)
[2021-05-20] MEDS ORDERED: PROPOFOL 10 MG/ML 20ML VIAL IV ONE (08:19)
[2021-05-20] MEDS ORDERED: LORAZEPAM 2 MG/ML 1 ML VIAL IVP SCH (08:30)
[2021-05-20] MEDS ORDERED: ONDANSETRON 4MG INJ IVP PRN (08:30)
[2021-05-20] MEDS ORDERED: ACETAMINOPHEN 325 MG TAB PO PRN (08:30)
[2021-05-20 09:06] LABS: INR 0.97 (0.85-1.15); PROTHROMBIN TIME 10.6 SEC (9.6-11.6)
[2021-05-20 09:07] LABS: PARTIAL THROMBOPLASTIN TIME 36.7 SEC (26.3-35.5)
[2021-05-20] MEDS ORDERED: ZOSYN 3.375GM+NS 50ML 3.38 GM in 0.9%NACL 50ML 50 ML IV SCH (10:30)
[2021-05-20] MEDS ORDERED: NOREPINEPHRIN 4MG/NS 250ML 250 ML IV SCH (10:30)
[2021-05-20] MEDS: FAMOTIDINE 20MG VIAL IV SCH ×2 (10:31→20:29)
[2021-05-20] MEDS: HEPARIN 5,000 UNIT VIAL SQ SCH ×2 (10:35→20:28)
[2021-05-20] MEDS ORDERED: KCL 20 MEQ ERTAB PO PRN (11:00)
[2021-05-20] MEDS ORDERED: GLUCAGON 1MG KIT 1 MG ML IM PRN (11:00)
[2021-05-20] MEDS ORDERED: DEXTROSE 50%-WATER 50 ML DISP.SYRIN IV PRN (11:00)
[2021-05-20] MEDS ORDERED: LIDOCAINE HCL-MPF 1% 2ML VIAL IV PRN (11:00)
[2021-05-20] MEDS ORDERED: POTASSIUM CHLORIDE 20MEQ/100ML 100 ML IV PRN (11:00)
[2021-05-20] MEDS ORDERED: ZOSYN 3.375GM+NS 50ML 50 ML IV SCH (11:00)
[2021-05-20] MEDS ORDERED: POTASSIUM CHLORIDE 10% ELIXIR 20 MEQ/15 ML UDCUP PO PRN (11:00)
[2021-05-20] MEDS: MIDAZOLAM 100MG-0.9% NS 100ML 100 ML IV SCH (12:31)
[2021-05-20 14:11] LABS: APPEARANCE,URINE Clear (CLEAR); BILIRUBIN,URINE Negative (NEGATIVE); COLOR,URINE Yellow (YELLOW); GLUCOSE, URINE (UA) >=1000 mg/dL (NEGATIVE); KETONES,URINE Negative (NEGATIVE); LEUKOCYTE ESTERASE ,URINE Negative (NEGATIVE); NITRATE,URINE Negative (NEGATIVE); OCCULT BLOOD,URINE Negative (NEGATIVE); PH,URINE 6.5 (5.0-8.0); PROTEIN,URINE POS 1+ mg/dL (NEGATIVE)
[2021-05-20 14:24] LABS: BACTERIA,URINE Rare /HPF (None Seen); RBC,URINE 0-1 /HPF (0-1); SQUAMOUS EPITHELIAL CELL,UR Rare /HPF (0-2); WBC,URINE 0-1 /HPF (0-1)
[2021-05-20] MEDS: ZOSYN 3.375GM+NS 50ML 50 ML IV SCH (20:29)
[2021-05-20] MEDS: SOLU-MEDROL 40MG VIAL IVP SCH (20:29)
[2021-05-21] VITALS (26 sets, daily range): BP systolic 95–120; BP diastolic 59–73
[2021-05-21] MEDS: IPRATROPIUM/ALBUTEROL SULFATE 3 ML SOLUTION IH SCH ×4 (01:02→12:57)
[2021-05-21] MEDS: MIDAZOLAM 100MG-0.9% NS 100ML 100 ML IV SCH ×2 (02:51→09:18)
[2021-05-21] MEDS: INSULIN HUMULIN R 100 UNIT/ML 3ML SQ SCH ×5 (05:52→23:40)
[2021-05-21] MEDS: ZOSYN 3.375GM+NS 50ML 50 ML IV SCH ×3 (05:52→20:55)
[2021-05-21] MEDS: HEPARIN 5,000 UNIT VIAL SQ SCH ×2 (07:30→20:55)
[2021-05-21] MEDS ORDERED: FENTANYL 2500MCG+NS 250ML 250 ML IV ONE (08:44)
[2021-05-21 08:47] LABS: HEMATOCRIT 43.1 % (42-54); MEAN CORPUSCULAR HEMOGLOBIN 30.1 pg (27.0-33.0); MEAN CORPUSCULAR HGB CONC 31.3 g/dL (32.0-36.0); MEAN CORPUSCULAR VOLUME 96.2 fL (79-99); RED BLOOD CELL COUNT(AUTO) 4.48 MIL/uL (4.50-6.20); RED CELL DISTRIBUTION WIDTH 13.4 % (11.0-15.5); WHITE BLOOD COUNT (AUTO) 9.4 K/uL (4.8-10.8)
[2021-05-21 09:07] LABS: BILIRUBIN,TOTAL 0.3 mg/dL (0.2-1.0); CREATININE 0.9 mg/dL (0.5-1.5); POTASSIUM 4.4 mmol/L (3.5-5.1); TOTAL PROTEIN, SERUM 6.9 g/dL (6.0-8.3)
[2021-05-21] MEDS: FAMOTIDINE 20MG VIAL IV SCH ×2 (09:18→20:55)
[2021-05-21] MEDS: SOLU-MEDROL 40MG VIAL IVP SCH ×2 (09:18→20:55)
[2021-05-21 10:22] LABS: ABG BASE EXCESS 5.8 mmol/L (-2.0-3.0); ABG HCO3 31.6 mmol/L (21.0-28.0); ABG PCO2 50 mmHg (35-48)
[2021-05-21] MEDS ORDERED: IPRATROPIUM/ALBUTEROL SULFATE 3 ML SOLUTION IH ONE (19:30)
[2021-05-21] MEDS ORDERED: 0.9%NACL 50ML 50 ML IV ONE (19:50)
[2021-05-21] MEDS: LEVOFLOXACIN 500 MG/D5W 100 ML 100 ML IV SCH (23:09)
[2021-05-21] MEDS: MIDODRINE HCL 5 MG TABLET NG SCH (23:16)
[2021-05-22] VITALS (24 sets, daily range): BP systolic 101–178; BP diastolic 52–85
[2021-05-22] MEDS: IPRATROPIUM/ALBUTEROL SULFATE 3 ML SOLUTION IH SCH ×5 (00:14→23:30)
[2021-05-22 04:29] LABS: ABG HCO3 28.1 mmol/L (21.0-28.0); ABG OXYGEN SATURATION 93.6 % (95.0-99.0); ABG PCO2 45 mmHg (35-48)
[2021-05-22] MEDS: ZOSYN 3.375GM+NS 50ML 50 ML IV SCH ×3 (05:25→20:19)
[2021-05-22] MEDS: MIDAZOLAM 100MG-0.9% NS 100ML 100 ML IV SCH (05:25)
[2021-05-22] MEDS: INSULIN HUMULIN R 100 UNIT/ML 3ML SQ SCH ×3 (06:00→17:50)
[2021-05-22 06:23] LABS: HEMATOCRIT 43.3 % (42-54); MEAN CORPUSCULAR HGB CONC 31.6 g/dL (32.0-36.0); MEAN CORPUSCULAR VOLUME 94.7 fL (79-99); RED BLOOD CELL COUNT(AUTO) 4.57 MIL/uL (4.50-6.20); RED CELL DISTRIBUTION WIDTH 13.6 % (11.0-15.5); WHITE BLOOD COUNT (AUTO) 8.3 K/uL (4.8-10.8)
[2021-05-22 06:39] LABS: BILIRUBIN,TOTAL 0.2 mg/dL (0.2-1.0); CREATININE 0.8 mg/dL (0.5-1.5); POTASSIUM 4.5 mmol/L (3.5-5.1)
[2021-05-22] MEDS: HEPARIN 5,000 UNIT VIAL SQ SCH ×2 (07:52→20:17)
[2021-05-22] MEDS: SOLU-MEDROL 40MG VIAL IVP SCH ×2 (09:55→20:19)
[2021-05-22] MEDS: FAMOTIDINE 20MG VIAL IV SCH ×2 (09:56→20:21)
[2021-05-22] MEDS: MIDODRINE HCL 5 MG TABLET NG SCH ×3 (09:56→20:26)
[2021-05-22] MEDS ORDERED: FENTANYL 2500MCG+NS 250ML 250 ML IV ONE (10:30)
[2021-05-22] MEDS: PROPOFOL 1000 MG/100 ML 100 ML IV SCH ×2 (18:54→21:54)
[2021-05-22] MEDS ORDERED: 0.9% NACL 250ML 250 ML ONE (19:31)
[2021-05-22] MEDS ORDERED: 0.9%NACL 50ML 50 ML IV ONE (20:10)
[2021-05-22] MEDS: LEVOFLOXACIN 500 MG/D5W 100 ML 100 ML IV SCH (21:50)
[2021-05-23] VITALS (19 sets, daily range): BP systolic 105–168; BP diastolic 62–85
[2021-05-23] MEDS: PROPOFOL 1000 MG/100 ML 100 ML IV SCH ×2 (02:40→06:26)
[2021-05-23 03:09] LABS: ABG BASE EXCESS 0.6 mmol/L (-2.0-3.0); ABG HCO3 25.1 mmol/L (21.0-28.0); ABG OXYGEN SATURATION 92.4 % (95.0-99.0); ABG PCO2 40 mmHg (35-48)
[2021-05-23 04:03] LABS: HEMATOCRIT 44.3 % (42-54); MEAN CORPUSCULAR HGB CONC 31.4 g/dL (32.0-36.0); MEAN CORPUSCULAR VOLUME 95.5 fL (79-99); RED BLOOD CELL COUNT(AUTO) 4.64 MIL/uL (4.50-6.20); RED CELL DISTRIBUTION WIDTH 13.4 % (11.0-15.5); WHITE BLOOD COUNT (AUTO) 9.1 K/uL (4.8-10.8)
[2021-05-23 04:13] LABS: CREATININE 0.7 mg/dL (0.5-1.5); POTASSIUM 4.4 mmol/L (3.5-5.1)
[2021-05-23] MEDS: ZOSYN 3.375GM+NS 50ML 50 ML IV SCH ×3 (04:41→20:28)
[2021-05-23] MEDS: INSULIN HUMULIN R 100 UNIT/ML 3ML SQ SCH ×5 (05:34→23:27)
[2021-05-23] MEDS: MIDODRINE HCL 5 MG TABLET NG SCH ×3 (09:00→20:28)
[2021-05-23] MEDS ORDERED: BISACODYL 10 MG SUPP.RECT RC PRN (09:00)
[2021-05-23] MEDS ORDERED: LACTULOSE 20 GM/30 ML UDCUP PO PRN (09:00)
[2021-05-23] MEDS: SOLU-MEDROL 40MG VIAL IVP SCH ×2 (09:22→20:28)
[2021-05-23] MEDS: FAMOTIDINE 20MG VIAL IV SCH ×2 (09:22→20:28)
[2021-05-23] MEDS: HEPARIN 5,000 UNIT VIAL SQ SCH ×2 (09:30→20:32)
[2021-05-23] MEDS: IPRATROPIUM/ALBUTEROL SULFATE 3 ML SOLUTION IH SCH ×3 (10:00→18:25)
[2021-05-23] MEDS: BISACODYL 5 MG TABLET.DR PO SCH ×2 (11:20→20:28)
[2021-05-23] MEDS: ACETYLCYSTEINE 10% 100MG/ML 4ML VIAL IH SCH ×3 (12:31→18:25)
[2021-05-23] MEDS ORDERED: 0.9%NACL 50ML 50 ML IV ONE (20:26)
[2021-05-23] MEDS: LEVOFLOXACIN 500 MG/D5W 100 ML 100 ML IV SCH (23:26)
[2021-05-24] VITALS (14 sets, daily range): BP systolic 110–132; BP diastolic 55–82
[2021-05-24] MEDS: IPRATROPIUM/ALBUTEROL SULFATE 3 ML SOLUTION IH SCH ×5 (02:32→18:50)
[2021-05-24 04:01] LABS: BASOPHILS % (AUTO) 0.1 % (0.0-5.0); HEMATOCRIT 46.1 % (42-54); LYMPHOCYTES % (AUTO) 7.2 % (21.0-51.0); MEAN CORPUSCULAR HEMOGLOBIN 29.6 pg (27.0-33.0); MEAN CORPUSCULAR HGB CONC 31.2 g/dL (32.0-36.0); MEAN CORPUSCULAR VOLUME 94.7 fL (79-99); MONOCYTES % (AUTO) 6.9 % (3.0-13.0); NEUTROPHILS % (AUTO) 85.1 % (40.0-77.0); PLATELET COUNT (AUTO) 194 K/uL (130-400); RED BLOOD CELL COUNT(AUTO) 4.87 MIL/uL (4.50-6.20); WHITE BLOOD COUNT (AUTO) 8.8 K/uL (4.8-10.8)
[2021-05-24 04:13] LABS: CREATININE 0.6 mg/dL (0.5-1.5); POTASSIUM 4.4 mmol/L (3.5-5.1)
[2021-05-24] MEDS ORDERED: 0.9%NACL 50ML 50 ML IV ONE (05:17)
[2021-05-24] MEDS: ZOSYN 3.375GM+NS 50ML 50 ML IV SCH ×3 (05:22→21:13)
[2021-05-24] MEDS: INSULIN HUMULIN R 100 UNIT/ML 3ML SQ SCH ×2 (05:37→12:00)
[2021-05-24] MEDS: ACETYLCYSTEINE 10% 100MG/ML 4ML VIAL IH SCH ×4 (06:39→21:58)
[2021-05-24] MEDS ORDERED: FAMOTIDINE 20MG TAB ONE (08:29)
[2021-05-24] MEDS: BISACODYL 5 MG TABLET.DR PO SCH ×2 (09:14→21:15)
[2021-05-24] MEDS: MIDODRINE HCL 5 MG TABLET NG SCH ×3 (09:14→21:15)
[2021-05-24] MEDS: SOLU-MEDROL 40MG VIAL IVP SCH ×2 (09:14→21:14)
[2021-05-24] MEDS: FAMOTIDINE 20MG VIAL IV SCH ×2 (09:14→21:15)
[2021-05-24] MEDS: HEPARIN 5,000 UNIT VIAL SQ SCH ×2 (09:16→21:14)
[2021-05-24] MEDS ORDERED: HYDRALAZINE 20MG/ML VIAL ONE (21:48)
[2021-05-24] MEDS: LEVOFLOXACIN 500 MG/D5W 100 ML 100 ML IV SCH (23:36)
[2021-05-25] MEDS: INSULIN HUMULIN R 100 UNIT/ML 3ML SQ SCH ×4 (00:40→11:31)
[2021-05-25] MEDS: IPRATROPIUM/ALBUTEROL SULFATE 3 ML SOLUTION IH SCH ×3 (02:03→09:57)
[2021-05-25 04:00] VITALS: BP 113/55
[2021-05-25] MEDS: ZOSYN 3.375GM+NS 50ML 50 ML IV SCH (04:48)
[2021-05-25] MEDS: ACETYLCYSTEINE 10% 100MG/ML 4ML VIAL IH SCH (06:25)
[2021-05-25 08:00] VITALS: BP 129/75
[2021-05-25] MEDS: BISACODYL 5 MG TABLET.DR PO SCH (09:00)
[2021-05-25] MEDS ORDERED: HEPARIN 5,000 UNIT VIAL SQ SCH (09:00)
[2021-05-25] MEDS: MIDODRINE HCL 5 MG TABLET NG SCH (09:00)
[2021-05-25] MEDS: FAMOTIDINE 20MG VIAL IV SCH (11:05)
[2021-05-25] MEDS: SOLU-MEDROL 40MG VIAL IVP SCH (11:09)
[2021-05-25 12:00] VITALS: BP 128/80
== END 2021-05-25 13:00 | disposition home or self-care (01) | DRG 871 ==
LOC: EDH 18:15 → EDHIP 18:16 → UNDOADMIN 22:45 → EDHIP 22:45 → 2DH 05-20 08:47 → 4CH 05-24 23:42
PROVIDERS: ADMIT Internal Medicine Infectious Disease; ATTEND Internal Medicine Infectious Disease
PROC: 5A09357 Assistance with Respiratory Ventilation, Less than 24 Consecutive Hours, Continuous Positive Airway Pressure (ICD-10-PCS; 2021-05-19)
PROC: 5A1945Z Respiratory Ventilation, 24-96 Consecutive Hours (ICD-10-PCS; 2021-05-19)
PROC: 0BH17EZ Insertion of Endotracheal Airway into Trachea, Via Natural or Artificial Opening (ICD-10-PCS; 2021-05-19)
PROC: 02HV33Z Insertion of Infusion Device into Superior Vena Cava, Percutaneous Approach (ICD-10-PCS; principal; 2021-05-22)
PROC: 5A09357 Assistance with Respiratory Ventilation, Less than 24 Consecutive Hours, Continuous Positive Airway Pressure (ICD-10-PCS; 2021-05-23)
DX: A41.9 Sepsis, unspecified organism (principal); J96.22 Acute and chronic respiratory failure with hypercapnia; J18.9 Pneumonia, unspecified organism; J96.21 Acute and chronic respiratory failure with hypoxia; J44.1 Chronic obstructive pulmonary disease with (acute) exacerbation; E66.2 Morbid (severe) obesity with alveolar hypoventilation; E87.2 Acidosis; J44.0 Chronic obstructive pulmonary disease with (acute) lower respiratory infection; J45.901 Unspecified asthma with (acute) exacerbation; E44.1 Mild protein-calorie malnutrition; I10 Essential (primary) hypertension; F17.210 Nicotine dependence, cigarettes, uncomplicated; F14.10 Cocaine abuse, uncomplicated; Z20.822 Contact with and (suspected) exposure to COVID-19; Z68.33 Body mass index [BMI] 33.0-33.9, adult; Z91.041 Radiographic dye allergy status; Z87.01 Personal history of pneumonia (recurrent); Z99.81 Dependence on supplemental oxygen; Z91.19 Patient's noncompliance with other medical treatment and regimen
CPT/HCPCS: 31500; 36415; 36600; 71045; 71250; 80048; 80053; 80305; 81001; 82435; 82550; 82803; 82947; 82948; 83605; 83735; 83874; 83880; 84100; 84132; 84295; 84484; 85018; 85025; 85027; 85378; 85610; 85730; 86701; 87040; 87390; 87635; 87804; 93005; 94002; 94003; 94640; 94660; 94667; 94668; C1894; C9803; G0378; J0330; J0360; J0456; J0696; J1644; J1956; J2060; J2250; J2405; J2543; J2704; J2920; J2930; J3010; J3480; J3490; J7050; J7608

== ENCOUNTER 2021-09-14 19:15 | Inpatient (IN) | payer MEDICARE ==
[~2021-09-14] VITALS: Ht 162.6 cm; Wt 115.7 kg
[~2021-09-14 19:15] MED LIST changes: -ETOMIDATE 20MG VIAL IVP ONE; +MONT-39 PO; -MONT10TA32 PO; -SUCCINYLCHOLINE CHLORIDE 20 MG/ML 10 ML VIAL IVP ONE
[2021-09-14] MEDS ORDERED: IPRATROPIUM/ALBUTEROL SULFATE 3 ML SOLUTION IH ONE ×2 (20:30→22:13)
[2021-09-14 20:36] LABS: ABG BASE EXCESS 7.9 mmol/L (-2.0-3.0); ABG HCO3 38.9 mmol/L (21.0-28.0); ABG OXYGEN SATURATION 76.6 % (95.0-99.0); ABG PCO2 89 mmHg (35-48)
[2021-09-14] MEDS ORDERED: FUROSEMIDE 40MG VIAL IVP ONE (21:00)
[2021-09-14 21:22] LABS: BASOPHILS % (AUTO) 0.3 % (0.0-5.0); EOSINOPHILS % (AUTO) 0.7 % (0.0-8.0); HEMATOCRIT 45.5 % (42-54); LYMPHOCYTES % (AUTO) 16.2 % (21.0-51.0); MEAN CORPUSCULAR HEMOGLOBIN 30.1 pg (27.0-33.0); MEAN CORPUSCULAR VOLUME 103.9 fL (79-99); MONOCYTES % (AUTO) 14.1 % (3.0-13.0); NEUTROPHILS % (AUTO) 68.6 % (40.0-77.0); PLATELET COUNT (AUTO) 180 K/uL (130-400); RED BLOOD CELL COUNT(AUTO) 4.38 MIL/uL (4.50-6.20); RED CELL DISTRIBUTION WIDTH 13.5 % (11.0-15.5); WHITE BLOOD COUNT (AUTO) 7.6 K/uL (4.8-10.8)
[2021-09-14 21:24] LABS: APPEARANCE,URINE Clear (CLEAR); BILIRUBIN,URINE Negative (NEGATIVE); COLOR,URINE Yellow (YELLOW); GLUCOSE, URINE (UA) >=1000 mg/dL (NEGATIVE); KETONES,URINE Negative (NEGATIVE); LEUKOCYTE ESTERASE ,URINE Negative (NEGATIVE); NITRATE,URINE Negative (NEGATIVE); OCCULT BLOOD,URINE Negative (NEGATIVE); PH,URINE 6.5 (5.0-8.0); PROTEIN,URINE Trace mg/dL (NEGATIVE)
[2021-09-14 21:30] LABS: AMPHET/METH SCREEN,URINE NEGATIVE (NEGATIVE); BARBITURATE SCREEN, URINE NEGATIVE (NEGATIVE); BENZODIAZEPINES SCREEN,URINE NEGATIVE (NEGATIVE); CANNABINOID SCREEN,URINE NEGATIVE (NEGATIVE); COCAINE SCREEN,URINE NEGATIVE (NEGATIVE); OPIATE SCREEN,URINE NEGATIVE (NEGATIVE); PHENCYCLIDINE SCREEN,URINE NEGATIVE (NEGATIVE)
[2021-09-14 21:34] LABS: CARBON DIOXIDE 42 mmol/L (21-32); CHLORIDE 101 mmol/L (101-111); CREATININE 0.7 mg/dL (0.5-1.5); GLOMERULAR FILTR. RATE CALC 123 mL/min (>60); GLUCOSE,RANDOM 112 mg/dL (70-105); INR 0.94 (0.85-1.15); POTASSIUM 3.8 mmol/L (3.5-5.1); PROTHROMBIN TIME 10.3 SEC (9.6-11.6); SODIUM SERUM 142 mmol/L (136-145); UREA NITROGEN, BLOOD 23 mg/dL (7-18)
[2021-09-14 21:43] LABS: ALANINE AMINOTRANSFERASE 34 U/L (12-78); ALBUMIN 3.4 g/dL (3.5-5.0); ALCOHOL, BLOOD 4 mg/dL (0-10); ASPARTATE AMINOTRANSFERASE 16 U/L (10-37); BILIRUBIN,TOTAL 0.2 mg/dL (0.2-1.0); TOTAL PROTEIN, SERUM 6.7 g/dL (6.0-8.3)
[2021-09-14 21:44] LABS: B-TYPE NATRIURETIC PEPTIDE 69 pg/mL (0-100)
[2021-09-14 22:03] LABS: LIPASE < 50 U/L (114-286)
[2021-09-14] MEDS ORDERED: CEFTRIAXONE 1G VIAL IVP ONE (23:30)
[2021-09-14] MEDS ORDERED: AZITHROMYCIN 500MG+NS 250ML IVPB ONE (23:30)
[2021-09-15] MEDS ORDERED: LORAZEPAM 2 MG/ML 1 ML VIAL IVP ONE (00:30)
[2021-09-15] MEDS ORDERED: AZITHROMYCIN 500MG+NS 250ML 250 ML ONE (00:59)
[2021-09-15] MEDS ORDERED: CEFTRIAXONE 1G VIAL ONE (00:59)
[2021-09-15] MEDS ORDERED: DILT120C12 PO (04:06)
[2021-09-15] MEDS ORDERED: SACU1TAB PO (04:06)
[2021-09-15] MEDS ORDERED: FURO20TA4 PO (04:06)
[2021-09-15] MEDS ORDERED: MONT-39 PO (04:06)
[2021-09-15] MEDS ORDERED: FLUT1BLS3 IH (04:06)
[2021-09-15] MEDS ORDERED: OMEP40CA21 PO (04:06)
[2021-09-15] MEDS ORDERED: ATOR10 PO (04:06)
[2021-09-15] MEDS ORDERED: DAPA10TA PO (04:07)
[2021-09-15] MEDS ORDERED: **HM** TRELEGY ELLIPTA IH SCH (09:00)
[2021-09-15] MEDS ORDERED: FUROSEMIDE 20 MG TABLET PO SCH (09:00)
[2021-09-15] MEDS ORDERED: ACETAMINOPHEN 325 MG TAB PO PRN ×2 (09:30)
[2021-09-15] MEDS ORDERED: ONDANSETRON 4MG INJ IVP PRN (09:30)
[2021-09-15] MEDS: **HM** FARXIGA 10MG PO SCH (09:45)
[2021-09-15] MEDS: PANTOPRAZOLE 40 MG TAB DR PO SCH (10:07)
[2021-09-15] MEDS: DILTIAZEM 120MG SR CAP PO SCH (10:07)
[2021-09-15] MEDS: MONTELUKAST SODIUM 10 MG TAB PO SCH (10:07)
[2021-09-15] MEDS: SACUBITRIL/VALSARTAN 1 EACH TABLET PO SCH ×2 (10:14→21:24)
[2021-09-15 10:24] LABS: ABG HCO3 40.4 mmol/L (21.0-28.0); ABG OXYGEN SATURATION 92.6 % (95.0-99.0); ABG PCO2 85 mmHg (35-48)
[2021-09-15 10:29] LABS: HEMATOCRIT 47.5 % (42-54); MEAN CORPUSCULAR HGB CONC 28.6 g/dL (32.0-36.0); MEAN CORPUSCULAR VOLUME 104.6 fL (79-99); PLATELET COUNT (AUTO) 157 K/uL (130-400); RED BLOOD CELL COUNT(AUTO) 4.54 MIL/uL (4.50-6.20); RED CELL DISTRIBUTION WIDTH 13.6 % (11.0-15.5); WHITE BLOOD COUNT (AUTO) 7.3 K/uL (4.8-10.8)
[2021-09-15 10:34] LABS: CREATININE 0.5 mg/dL (0.5-1.5); POTASSIUM 4.4 mmol/L (3.5-5.1)
[2021-09-15 10:55] LABS: BASOPHILS % (MANUAL) 1 % (0-2); LYMPHOCYTES % (MANUAL) 10 % (22-44); MONOCYTES % (MANUAL) 17 % (2-9); SEGMENTED NEUTROPHILS % 72 % (40-70)
[2021-09-15 10:58] LABS: MAN.DIFF COMMENT-IMPRESSION MANUAL DIFFERENTIAL; PLATELET MORPHOLOGY COMMENT ADEQUATE
[2021-09-15] MEDS: DOXYCYCLINE HYCLATE 100 MG TABLET PO SCH (21:24)
[2021-09-15] MEDS: SOLU-MEDROL 40MG VIAL IVP SCH (21:24)
[2021-09-15] MEDS: ATORVASTATIN 10 MG TABLET PO SCH (21:28)
[2021-09-16] MEDS ORDERED: CEFTRIAXONE 1G VIAL IVP SCH (01:00)
[2021-09-16 04:21] LABS: ABG BASE EXCESS 7.8 mmol/L (-2.0-3.0); ABG OXYGEN SATURATION 92.8 % (95.0-99.0); ABG PCO2 101 mmHg (35-48)
[2021-09-16 06:55] LABS: ABG OXYGEN SATURATION 87.3 % (95.0-99.0); ABG PCO2 121 mmHg (35-48)
[2021-09-16 07:20] LABS: HEMATOCRIT 49.4 % (42-54); MEAN CORPUSCULAR HEMOGLOBIN 29.5 pg (27.0-33.0); MEAN CORPUSCULAR HGB CONC 28.5 g/dL (32.0-36.0); MEAN CORPUSCULAR VOLUME 103.3 fL (79-99); RED BLOOD CELL COUNT(AUTO) 4.78 MIL/uL (4.50-6.20); RED CELL DISTRIBUTION WIDTH 13.1 % (11.0-15.5); WHITE BLOOD COUNT (AUTO) 6.6 K/uL (4.8-10.8)
[2021-09-16 07:28] LABS: CREATININE 0.7 mg/dL (0.5-1.5); MAGNESIUM 2.6 mg/dL (1.80-2.40); POTASSIUM 4.8 mmol/L (3.5-5.1)
[2021-09-16] MEDS ORDERED: FUROSEMIDE 40MG VIAL IV SCH (09:00)
[2021-09-16] MEDS ORDERED: ENOXAPARIN SODIUM 30 MG/0.3 ML SQ SCH (09:00)
[2021-09-16] MEDS: **HM** FARXIGA 10MG PO SCH (09:00)
[2021-09-16] MEDS: FUROSEMIDE 40MG VIAL IV SCH ×3 (09:00→21:23)
[2021-09-16] MEDS: SACUBITRIL/VALSARTAN 1 EACH TABLET PO SCH ×2 (09:18→21:00)
[2021-09-16] MEDS: MONTELUKAST SODIUM 10 MG TAB PO SCH (09:18)
[2021-09-16] MEDS: SOLU-MEDROL 40MG VIAL IVP SCH ×2 (09:18→21:23)
[2021-09-16] MEDS: PANTOPRAZOLE 40 MG TAB DR PO SCH (09:18)
[2021-09-16] MEDS: DOXYCYCLINE HYCLATE 100 MG TABLET PO SCH ×2 (09:18→21:23)
[2021-09-16] MEDS: DILTIAZEM 120MG SR CAP PO SCH (09:18)
[2021-09-16] MEDS: NICOTINE 7 MG/ 24 HR PATCH TD SCH (09:21)
[2021-09-16] MEDS: QUETIAPINE FUMARATE 25 MG TAB PO PRN (09:21)
[2021-09-16 12:37] LABS: ABG BASE EXCESS 9.2 mmol/L (-2.0-3.0); ABG OXYGEN SATURATION 90.6 % (95.0-99.0); ABG PCO2 87 mmHg (35-48)
[2021-09-16 16:19] VITALS: BP 111/64
[2021-09-16 20:28] VITALS: BP 120/66
[2021-09-16] MEDS: ATORVASTATIN 10 MG TABLET PO SCH (21:24)
[2021-09-16 23:46] VITALS: BP 127/65
[2021-09-17] MEDS: IPRATROPIUM/ALBUTEROL SULFATE 3 ML SOLUTION IH SCH ×5 (00:06→23:35)
[2021-09-17] MEDS: QUETIAPINE FUMARATE 25 MG TAB PO PRN (02:48)
[2021-09-17] MEDS ORDERED: LORAZEPAM 2 MG/ML 1 ML VIAL IVP ONE (04:30)
[2021-09-17 05:10] VITALS: BP 98/64
[2021-09-17 06:15] LABS: BASOPHILS % (AUTO) 0.1 % (0.0-5.0); HEMATOCRIT 46.7 % (42-54); LYMPHOCYTES % (AUTO) 5.4 % (21.0-51.0); MEAN CORPUSCULAR HEMOGLOBIN 30.2 pg (27.0-33.0); MEAN CORPUSCULAR VOLUME 100.6 fL (79-99); MONOCYTES % (AUTO) 4.9 % (3.0-13.0); NEUTROPHILS % (AUTO) 89.2 % (40.0-77.0); PLATELET COUNT (AUTO) 209 K/uL (130-400); RED BLOOD CELL COUNT(AUTO) 4.64 MIL/uL (4.50-6.20); RED CELL DISTRIBUTION WIDTH 12.9 % (11.0-15.5)
[2021-09-17 06:50] LABS: ALBUMIN 3.4 g/dL (3.5-5.0); BILIRUBIN,TOTAL 0.5 mg/dL (0.2-1.0); CREATININE 0.6 mg/dL (0.5-1.5); THYROID STIMULATING HORMONE 0.18 uIU/mL (0.36-3.74)
[2021-09-17 07:41] VITALS: BP 144/77
[2021-09-17] MEDS: **HM** FARXIGA 10MG PO SCH (09:00)
[2021-09-17] MEDS ORDERED: LEVOFLOXACIN 750 MG/D5W 150 ML 150 ML IV SCH (09:00)
[2021-09-17] MEDS: FUROSEMIDE 40MG VIAL IV SCH ×2 (09:10→20:16)
[2021-09-17] MEDS: SOLU-MEDROL 40MG VIAL IVP SCH ×2 (09:10→20:16)
[2021-09-17] MEDS: SACUBITRIL/VALSARTAN 1 EACH TABLET PO SCH ×2 (09:11→20:16)
[2021-09-17] MEDS: DILTIAZEM 120MG SR CAP PO SCH (09:12)
[2021-09-17] MEDS: PANTOPRAZOLE 40 MG TAB DR PO SCH (09:12)
[2021-09-17] MEDS: DOXYCYCLINE HYCLATE 100 MG TABLET PO SCH ×2 (09:12→20:16)
[2021-09-17] MEDS: MONTELUKAST SODIUM 10 MG TAB PO SCH (09:12)
[2021-09-17] MEDS: ENOXAPARIN SODIUM 40 MG/0.4 ML SYRINGE SQ SCH (09:13)
[2021-09-17 09:27] LABS: ABG BASE EXCESS 14.1 mmol/L (-2.0-3.0); ABG HCO3 44.9 mmol/L (21.0-28.0); ABG OXYGEN SATURATION 91.7 % (95.0-99.0); ABG PCO2 89 mmHg (35-48)
[2021-09-17 11:07] VITALS: BP 131/94
[2021-09-17] MEDS: CEFTRIAXONE 1G VIAL IVP SCH (11:27)
[2021-09-17 16:19] VITALS: BP 146/78
[2021-09-17] MEDS: HYDROXYZINE 25 MG TABLET PO SCH (20:16)
[2021-09-17] MEDS: ATORVASTATIN 10 MG TABLET PO SCH (20:16)
[2021-09-17 20:30] VITALS: BP 130/75
[2021-09-17] MEDS ORDERED: TRAZODONE HCL 50 MG TAB PO SCH (21:00)
[2021-09-17 23:58] VITALS: BP 113/66
[2021-09-18 04:06] VITALS: BP 95/54
[2021-09-18 04:53] LABS: HEMATOCRIT 47.4 % (42-54); MEAN CORPUSCULAR VOLUME 100.2 fL (79-99); RED BLOOD CELL COUNT(AUTO) 4.73 MIL/uL (4.50-6.20); RED CELL DISTRIBUTION WIDTH 13.2 % (11.0-15.5); WHITE BLOOD COUNT (AUTO) 10.4 K/uL (4.8-10.8)
[2021-09-18 05:04] LABS: CREATININE 0.7 mg/dL (0.5-1.5); POTASSIUM 3.1 mmol/L (3.5-5.1)
[2021-09-18] MEDS: IPRATROPIUM/ALBUTEROL SULFATE 3 ML SOLUTION IH SCH ×2 (07:16→12:00)
[2021-09-18] MEDS ORDERED: POTASSIUM CHLORIDE 20MEQ/100ML 100 ML IV PRN (07:30)
[2021-09-18] MEDS ORDERED: POTASSIUM CHLORIDE 10% ELIXIR 20 MEQ/15 ML UDCUP PO PRN (07:30)
[2021-09-18] MEDS ORDERED: LIDOCAINE HCL-MPF 1% 2ML VIAL IV PRN (07:30)
[2021-09-18 07:54] VITALS: BP 114/79
[2021-09-18] MEDS: NICOTINE 7 MG/ 24 HR PATCH TD SCH ×2 (09:00→09:17)
[2021-09-18] MEDS: **HM** FARXIGA 10MG PO SCH (09:00)
[2021-09-18] MEDS: HYDROXYZINE 25 MG TABLET PO SCH (09:14)
[2021-09-18] MEDS: MONTELUKAST SODIUM 10 MG TAB PO SCH (09:14)
[2021-09-18] MEDS: PANTOPRAZOLE 40 MG TAB DR PO SCH (09:14)
[2021-09-18] MEDS: SACUBITRIL/VALSARTAN 1 EACH TABLET PO SCH (09:14)
[2021-09-18] MEDS: DOXYCYCLINE HYCLATE 100 MG TABLET PO SCH (09:14)
[2021-09-18] MEDS: DILTIAZEM 120MG SR CAP PO SCH (09:14)
[2021-09-18] MEDS: KCL 20 MEQ ERTAB PO PRN ×2 (09:14→12:34)
[2021-09-18] MEDS: SOLU-MEDROL 40MG VIAL IVP SCH (09:14)
[2021-09-18] MEDS: CEFTRIAXONE 1G VIAL IVP SCH (09:14)
[2021-09-18] MEDS: FUROSEMIDE 40MG VIAL IV SCH (09:15)
[2021-09-18] MEDS: ENOXAPARIN SODIUM 40 MG/0.4 ML SYRINGE SQ SCH (09:15)
[2021-09-18 11:06] VITALS: BP 104/67
[2021-09-18 15:34] VITALS: BP 112/67
== END 2021-09-18 16:37 | disposition left against medical advice (07) | DRG 177 ==
LOC: EDH 19:15 → EDHIP 23:48 → 3BH 09-16 15:29
PROVIDERS: ADMIT Internal Medicine Infectious Disease; ATTEND Internal Medicine Infectious Disease
PROC: 5A09357 Assistance with Respiratory Ventilation, Less than 24 Consecutive Hours, Continuous Positive Airway Pressure (ICD-10-PCS; principal; 2021-09-14)
PROC: 5A09357 Assistance with Respiratory Ventilation, Less than 24 Consecutive Hours, Continuous Positive Airway Pressure (ICD-10-PCS; 2021-09-15)
PROC: 5A09357 Assistance with Respiratory Ventilation, Less than 24 Consecutive Hours, Continuous Positive Airway Pressure (ICD-10-PCS; 2021-09-16)
PROC: 5A09357 Assistance with Respiratory Ventilation, Less than 24 Consecutive Hours, Continuous Positive Airway Pressure (ICD-10-PCS; 2021-09-17)
PROC: 5A09357 Assistance with Respiratory Ventilation, Less than 24 Consecutive Hours, Continuous Positive Airway Pressure (ICD-10-PCS; 2021-09-18)
DX: J15.6 Pneumonia due to other Gram-negative bacteria (principal); J96.21 Acute and chronic respiratory failure with hypoxia; I50.43 Acute on chronic combined systolic (congestive) and diastolic (congestive) heart failure; J96.22 Acute and chronic respiratory failure with hypercapnia; J44.0 Chronic obstructive pulmonary disease with (acute) lower respiratory infection; J44.1 Chronic obstructive pulmonary disease with (acute) exacerbation; Z68.41 Body mass index [BMI] 40.0-44.9, adult; E87.2 Acidosis; Z20.822 Contact with and (suspected) exposure to COVID-19; K21.9 Gastro-esophageal reflux disease without esophagitis; F17.210 Nicotine dependence, cigarettes, uncomplicated; E78.5 Hyperlipidemia, unspecified; E66.01 Morbid (severe) obesity due to excess calories; I11.0 Hypertensive heart disease with heart failure; F14.10 Cocaine abuse, uncomplicated; I48.91 Unspecified atrial fibrillation; G47.33 Obstructive sleep apnea (adult) (pediatric); F41.1 Generalized anxiety disorder; G47.00 Insomnia, unspecified; E78.00 Pure hypercholesterolemia, unspecified; Z91.041 Radiographic dye allergy status; Z99.81 Dependence on supplemental oxygen; Z91.19 Patient's noncompliance with other medical treatment and regimen
CPT/HCPCS: 36415; 36600; 71045; 71250; 80048; 80053; 80305; 81003; 82435; 82803; 82947; 82948; 83605; 83690; 83735; 83880; 84132; 84295; 84443; 84484; 85018; 85025; 85027; 85610; 87040; 87635; 87804; 93005; 94640; 94660; 99291; C9803; G0378; J0456; J0696; J1650; J1940; J1956; J2060; J2920

== ENCOUNTER 2022-01-09 23:22 | Emergency (ER) | payer MEDICARE ==
[~2022-01-09] VITALS: Ht 165.1 cm; Wt 106.6 kg
[~2022-01-09 23:22] MED LIST changes: +ATOR10 PO; +DAPA10TA PO; +DILT120C12 PO; +FLUT1BLS3 IH; +OMEP40CA21 PO; +SACU1TAB PO
[2022-01-10] MEDS ORDERED: SOLU-MEDROL 125MG VIAL IVP ONE
[2022-01-10] MEDS ORDERED: ALBUTEROL 0.083% 2.5 MG/3 ML INH IH PRN
[2022-01-10] MEDS ORDERED: IPRATROPIUM/ALBUTEROL SULFATE 3 ML SOLUTION IH ONE (00:08)
[2022-01-10] MEDS ORDERED: IPRATROPIUM 0.5 MG/2.5 ML INH IH PRN ×2 (00:30)
[2022-01-10 00:31] LABS: CREATININE 0.9 mg/dL (0.5-1.5); POTASSIUM 3.3 mmol/L (3.5-5.1)
[2022-01-10 00:34] LABS: BASOPHILS % (AUTO) 0.5 % (0.0-5.0); EOSINOPHILS % (AUTO) 1.2 % (0.0-8.0); HEMATOCRIT 52.5 % (42-54); LYMPHOCYTES % (AUTO) 14.5 % (21.0-51.0); MEAN CORPUSCULAR HGB CONC 31.8 g/dL (32.0-36.0); MEAN CORPUSCULAR VOLUME 94.4 fL (79-99); MONOCYTES % (AUTO) 13.1 % (3.0-13.0); NEUTROPHILS % (AUTO) 70.5 % (40.0-77.0); PLATELET COUNT (AUTO) 188 K/uL (130-400); RED BLOOD CELL COUNT(AUTO) 5.56 MIL/uL (4.50-6.20); RED CELL DISTRIBUTION WIDTH 12.9 % (11.0-15.5); WHITE BLOOD COUNT (AUTO) 8.2 K/uL (4.8-10.8)
[2022-01-10 00:36] LABS: ALBUMIN 3.6 g/dL (3.5-5.0); BILIRUBIN,TOTAL 0.5 mg/dL (0.2-1.0); TOTAL PROTEIN, SERUM 7.5 g/dL (6.0-8.3)
[2022-01-10] MEDS ORDERED: ALBUTEROL 0.083% 2.5 MG/3 ML INH IH ONE (01:00)
[2022-01-10 01:46] VITALS: BP 120/70
[2022-01-10] MEDS ORDERED: POTASSIUM CHLORIDE 10% ELIXIR 20 MEQ/15 ML UDCUP PO STA (02:04)
[2022-01-10] MEDS ORDERED: PRED20TA3 PO (02:31)
== END 2022-01-10 02:45 | disposition home or self-care (01) ==
LOC: EDH 23:22
DX: J44.1 Chronic obstructive pulmonary disease with (acute) exacerbation (principal); E87.6 Hypokalemia; F17.200 Nicotine dependence, unspecified, uncomplicated; E11.9 Type 2 diabetes mellitus without complications; E03.9 Hypothyroidism, unspecified; Z88.8 Allergy status to other drugs, medicaments and biological substances; Z79.899 Other long term (current) drug therapy; Z98.890 Other specified postprocedural states
CPT/HCPCS: 36415; 71045; 80053; 85025; 94640; 94644; 96374; 99285; J2930

== ENCOUNTER 2022-02-08 14:20 | Inpatient (IN) | payer MEDICARE ==
[2022-02-08] VITALS (10 sets, daily range): BP systolic 97–110; BP diastolic 55–67
[~2022-02-08] VITALS: Ht 172.7 cm; Wt 99.3 kg
[~2022-02-08 14:20] MED LIST changes: +PRED20TA3 PO
[2022-02-08] MEDS ORDERED: IPRATROPIUM/ALBUTEROL SULFATE 3 ML SOLUTION IH ONE (14:30)
[2022-02-08] MEDS ORDERED: SOLU-MEDROL 125MG VIAL IVP ONE (14:30)
[2022-02-08 14:49] LABS: BASOPHILS % (AUTO) 0.3 % (0.0-5.0); HEMATOCRIT 51.3 % (42-54); LYMPHOCYTES % (AUTO) 4.9 % (21.0-51.0); MONOCYTES % (AUTO) 12.6 % (3.0-13.0); NEUTROPHILS % (AUTO) 81.8 % (40.0-77.0); NUCLEATED RED BLOOD CELLS 0.2 % (0.0-0.19); PLATELET COUNT (AUTO) 168 K/uL (130-400); RED BLOOD CELL COUNT(AUTO) 5.13 MIL/uL (4.50-6.20); RED CELL DISTRIBUTION WIDTH 13.2 % (11.0-15.5); WHITE BLOOD COUNT (AUTO) 19.1 K/uL (4.8-10.8)
[2022-02-08 14:54] LABS: ABG HCO3 41.7 mmol/L (21.0-28.0); ABG OXYGEN SATURATION 75.2 % (95.0-99.0); ABG PCO2 131 mmHg (35-48)
[2022-02-08 15:23] LABS: APPEARANCE,URINE Clear (CLEAR); BILIRUBIN,URINE Negative (NEGATIVE); COLOR,URINE Yellow (YELLOW); GLUCOSE, URINE (UA) >=1000 mg/dL (NEGATIVE); KETONES,URINE Negative (NEGATIVE); LEUKOCYTE ESTERASE ,URINE Negative (NEGATIVE); NITRATE,URINE Negative (NEGATIVE); OCCULT BLOOD,URINE Negative (NEGATIVE); PH,URINE 5.5 (5.0-8.0); PROTEIN,URINE Trace mg/dL (NEGATIVE)
[2022-02-08 15:27] LABS: ALBUMIN 3.4 g/dL (3.5-5.0); CREATININE 1.1 mg/dL (0.5-1.5); POTASSIUM 4.6 mmol/L (3.5-5.1); TOTAL PROTEIN, SERUM 7.9 g/dL (6.0-8.3)
[2022-02-08 15:29] LABS: AMPHET/METH SCREEN,URINE NEGATIVE (NEGATIVE); BARBITURATE SCREEN, URINE NEGATIVE (NEGATIVE); BENZODIAZEPINES SCREEN,URINE NEGATIVE (NEGATIVE); CANNABINOID SCREEN,URINE NEGATIVE (NEGATIVE); COCAINE SCREEN,URINE POSITIVE (NEGATIVE); OPIATE SCREEN,URINE NEGATIVE (NEGATIVE); PHENCYCLIDINE SCREEN,URINE NEGATIVE (NEGATIVE)
[2022-02-08] MEDS ORDERED: LORAZEPAM 2 MG/ML 1 ML VIAL IVP ONE ×2 (15:30→17:30)
[2022-02-08 15:43] LABS: RBC,URINE 0-1 /HPF (0-1); WBC,URINE 0-1 /HPF (0-1)
[2022-02-08 15:44] LABS: BACTERIA,URINE Rare /HPF (None Seen); MUCUS,URINE Few LPF (None Seen); SQUAMOUS EPITHELIAL CELL,UR Rare /HPF (0-2); TRANSITIONAL EPI CELLS,URINE Moderate /HPF (None Seen)
[2022-02-08] MEDS ORDERED: FENTANYL 2500MCG+NS 250ML 250 ML IV ONE (16:05)
[2022-02-08] MEDS ORDERED: FENTANYL 2500MCG+NS 250ML IV.SOLN IV SCH (16:30)
[2022-02-08] MEDS ORDERED: MIDAZOLAM 100MG-0.9% NS 100ML 100ML BAG IV ONE (16:30)
[2022-02-08 16:47] LABS: B-TYPE NATRIURETIC PEPTIDE 1290 pg/mL (0-100)
[2022-02-08] MEDS ORDERED: LORAZEPAM 2 MG/ML 1 ML VIAL ONE (17:05)
[2022-02-08 17:08] LABS: ABG BASE EXCESS 3.7 mmol/L (-2.0-3.0); ABG HCO3 34.2 mmol/L (21.0-28.0); ABG OXYGEN SATURATION 90.1 % (95.0-99.0); ABG PCO2 82 mmHg (35-48)
[2022-02-08] MEDS: MIDAZOLAM 100MG-0.9% NS 100ML 100 ML IV SCH (17:24)
[2022-02-08] MEDS: FENTANYL 2500MCG+NS 250ML 250 ML IV SCH (17:24)
[2022-02-08] MEDS ORDERED: NOREPINEPHRIN 4MG/NS 250ML 250 ML IV ONE (17:40)
[2022-02-08] MEDS: NOREPINEPHRIN 4MG/NS 250ML 250 ML IV SCH (18:07)
[2022-02-08] MEDS: CEFTRIAXONE 1G VIAL IVP SCH (18:17)
[2022-02-08] MEDS: SOLU-MEDROL 40MG VIAL IVP SCH (18:17)
[2022-02-08] MEDS: AZITHROMYCIN 500MG+NS 250ML IVPB SCH (18:17)
[2022-02-08 18:25] LABS: CHOLESTEROL 137 mg/dL (<200); HDL CHOLESTEROL 78 mg/dL (29-71); LDL DIRECT 45 mg/dL (0-99); TRIGLYCERIDES 75 mg/dL (30-200)
[2022-02-08] MEDS ORDERED: GLUCAGON 1MG KIT 1 MG ML IM PRN (20:00)
[2022-02-08] MEDS: FUROSEMIDE 20MG VIAL IV SCH (20:00)
[2022-02-08] MEDS ORDERED: ASPIRIN 325MG TAB PO ONE (20:00)
[2022-02-08] MEDS ORDERED: POTASSIUM CHLORIDE 20MEQ/100ML 100 ML IV PRN ×2 (20:00)
[2022-02-08] MEDS ORDERED: LIDOCAINE HCL-MPF 1% 2ML VIAL IV PRN ×2 (20:00)
[2022-02-08] MEDS ORDERED: MAGNESIUM 2GM PREMIX 50ML 50 ML IV PRN (20:00)
[2022-02-08] MEDS ORDERED: DEXTROSE 50%-WATER 50 ML DISP.SYRIN IV PRN (20:00)
[2022-02-08] MEDS ORDERED: IPRATROPIUM/ALBUTEROL SULFATE 3 ML SOLUTION IH SCH (20:00)
[2022-02-08] MEDS ORDERED: KCL 20 MEQ ERTAB PO PRN (20:00)
[2022-02-08] MEDS: INSULIN HUMULIN R 100 UNIT/ML 3ML SQ SCH (20:10)
[2022-02-08] MEDS: IPRATROPIUM/ALBUTEROL SULFATE 3 ML SOLUTION IH SCH ×2 (20:17→23:23)
[2022-02-09] VITALS (64 sets, daily range): BP systolic 85–136; BP diastolic 47–82
[2022-02-09] MEDS: CHLORHEXIDINE GLUCONATE 473 ML MOUTHWASH MM SCH ×4 (00:38→20:22)
[2022-02-09] MEDS: SOLU-MEDROL 40MG VIAL IVP SCH ×3 (00:38→16:37)
[2022-02-09] MEDS: MIDAZOLAM 100MG-0.9% NS 100ML 100 ML IV SCH ×3 (00:39→23:06)
[2022-02-09] MEDS: NOREPINEPHRIN 4MG/NS 250ML 250 ML IV SCH (00:41)
[2022-02-09] MEDS: FENTANYL 2500MCG+NS 250ML 250 ML IV SCH ×3 (03:30→23:07)
[2022-02-09 03:51] LABS: BASOPHILS % (AUTO) 0.2 % (0.0-5.0); LYMPHOCYTES % (AUTO) 2.8 % (21.0-51.0); MEAN CORPUSCULAR HEMOGLOBIN 30.3 pg (27.0-33.0); MEAN CORPUSCULAR HGB CONC 31.3 g/dL (32.0-36.0); MEAN CORPUSCULAR VOLUME 96.6 fL (79-99); MONOCYTES % (AUTO) 6.5 % (3.0-13.0); NEUTROPHILS % (AUTO) 89.9 % (40.0-77.0); NUCLEATED RED BLOOD CELLS 0.2 % (0.0-0.19); PLATELET COUNT (AUTO) 181 K/uL (130-400); RED BLOOD CELL COUNT(AUTO) 4.76 MIL/uL (4.50-6.20); RED CELL DISTRIBUTION WIDTH 13.2 % (11.0-15.5); WHITE BLOOD COUNT (AUTO) 16.4 K/uL (4.8-10.8)
[2022-02-09 04:05] LABS: HEMOGLOBIN A1C 6.3 % (4.0-6.0)
[2022-02-09 04:17] LABS: ALBUMIN 2.8 g/dL (3.5-5.0); MAGNESIUM 2.5 mg/dL (1.80-2.40); POTASSIUM 4.3 mmol/L (3.5-5.1); TOTAL PROTEIN, SERUM 7.1 g/dL (6.0-8.3)
[2022-02-09 04:34] LABS: B-TYPE NATRIURETIC PEPTIDE 312 pg/mL (0-100)
[2022-02-09] MEDS: INSULIN HUMULIN R 100 UNIT/ML 3ML SQ SCH ×4 (06:09→20:22)
[2022-02-09] MEDS: IPRATROPIUM/ALBUTEROL SULFATE 3 ML SOLUTION IH SCH ×4 (06:26→23:28)
[2022-02-09] MEDS ORDERED: MAGNESIUM 2GM PREMIX 50ML 50 ML IV PRN (07:30)
[2022-02-09] MEDS ORDERED: LORAZEPAM 2 MG/ML 1 ML VIAL IVP PRN ×3 (07:30→10:30)
[2022-02-09 07:34] LABS: ABG BASE EXCESS 7.3 mmol/L (-2.0-3.0); ABG HCO3 33.8 mmol/L (21.0-28.0); ABG OXYGEN SATURATION 89.9 % (95.0-99.0); ABG PCO2 55 mmHg (35-48)
[2022-02-09] MEDS ORDERED: ENOXAPARIN SODIUM 30 MG/0.3 ML SQ SCH (09:00)
[2022-02-09] MEDS: ENOXAPARIN SODIUM 40 MG/0.4 ML SYRINGE SQ SCH (09:03)
[2022-02-09] MEDS: MULTIVITAMIN TABLET NG SCH (09:04)
[2022-02-09] MEDS: DIAZEPAM 5 MG TABLET NG SCH ×3 (09:04→22:42)
[2022-02-09] MEDS: FUROSEMIDE 20MG VIAL IV SCH ×2 (09:05→20:22)
[2022-02-09] MEDS: PANTOPRAZOLE 40 MG/VIAL IVP SCH (09:06)
[2022-02-09] MEDS: ASPIRIN 81MG CHEW TAB PO SCH (09:06)
[2022-02-09] MEDS: LACTATED RINGERS 1000ML 1,000 ML IV SCH ×2 (09:06→16:37)
[2022-02-09] MEDS: THIAMINE HCL 100 MG/ML 2ML VIAL IVP SCH (09:07)
[2022-02-09 12:22] LABS: ABG BASE EXCESS 4.8 mmol/L (-2.0-3.0); ABG OXYGEN SATURATION 98.8 % (95.0-99.0); ABG PCO2 136 mmHg (35-48)
[2022-02-09] MEDS: NICOTINE 14 MG/ 24 HR PATCH TD SCH (12:27)
[2022-02-09] MEDS: AZITHROMYCIN 500MG+NS 250ML IVPB SCH (16:37)
[2022-02-09] MEDS: CEFTRIAXONE 1G VIAL IVP SCH (16:37)
[2022-02-10] VITALS (24 sets, daily range): BP systolic 93–113; BP diastolic 54–70
[2022-02-10] MEDS: SOLU-MEDROL 40MG VIAL IVP SCH ×3 (01:36→16:01)
[2022-02-10] MEDS: CHLORHEXIDINE GLUCONATE 473 ML MOUTHWASH MM SCH ×4 (01:39→20:03)
[2022-02-10] MEDS: LACTATED RINGERS 1000ML 1,000 ML IV SCH ×3 (03:07→23:38)
[2022-02-10] MEDS: INSULIN HUMULIN R 100 UNIT/ML 3ML SQ SCH ×4 (06:14→21:00)
[2022-02-10] MEDS: IPRATROPIUM/ALBUTEROL SULFATE 3 ML SOLUTION IH SCH ×4 (06:34→23:49)
[2022-02-10] MEDS: DIAZEPAM 5 MG TABLET NG SCH ×3 (06:34→23:33)
[2022-02-10 08:10] LABS: BASOPHILS % (AUTO) 0.1 % (0.0-5.0); HEMATOCRIT 43.2 % (42-54); LYMPHOCYTES % (AUTO) 2.8 % (21.0-51.0); MEAN CORPUSCULAR HEMOGLOBIN 30.3 pg (27.0-33.0); MEAN CORPUSCULAR HGB CONC 31.7 g/dL (32.0-36.0); MEAN CORPUSCULAR VOLUME 95.6 fL (79-99); MONOCYTES % (AUTO) 6.7 % (3.0-13.0); NEUTROPHILS % (AUTO) 89.8 % (40.0-77.0); NUCLEATED RED BLOOD CELLS 0.1 % (0.0-0.19); PLATELET COUNT (AUTO) 179 K/uL (130-400); RED BLOOD CELL COUNT(AUTO) 4.52 MIL/uL (4.50-6.20); RED CELL DISTRIBUTION WIDTH 13.9 % (11.0-15.5); WHITE BLOOD COUNT (AUTO) 13.9 K/uL (4.8-10.8)
[2022-02-10 08:27] LABS: ALBUMIN 2.3 g/dL (3.5-5.0); CREATININE 0.8 mg/dL (0.5-1.5); MAGNESIUM 2.7 mg/dL (1.80-2.40); POTASSIUM 4.3 mmol/L (3.5-5.1); TOTAL PROTEIN, SERUM 6.1 g/dL (6.0-8.3)
[2022-02-10] MEDS: ASPIRIN 81MG CHEW TAB PO SCH (08:43)
[2022-02-10] MEDS: THIAMINE HCL 100 MG/ML 2ML VIAL IVP SCH (08:43)
[2022-02-10] MEDS: PANTOPRAZOLE 40 MG/VIAL IVP SCH (08:43)
[2022-02-10] MEDS: FUROSEMIDE 20MG VIAL IV SCH ×2 (08:43→20:03)
[2022-02-10] MEDS: MULTIVITAMIN TABLET NG SCH (08:43)
[2022-02-10] MEDS: ENOXAPARIN SODIUM 40 MG/0.4 ML SYRINGE SQ SCH (08:44)
[2022-02-10] MEDS: NICOTINE 14 MG/ 24 HR PATCH TD SCH (08:44)
[2022-02-10] MEDS ORDERED: PHARMACY COMMUNICATION MISC SCH (09:00)
[2022-02-10] MEDS ORDERED: VANCOMYCIN 2GM/500 ML BAG 500 ML IV SCH (09:30)
[2022-02-10] MEDS: MIDAZOLAM 100MG-0.9% NS 100ML 100 ML IV SCH ×2 (10:55→23:39)
[2022-02-10] MEDS: FENTANYL 2500MCG+NS 250ML 250 ML IV SCH (13:21)
[2022-02-10] MEDS: AZITHROMYCIN 500MG+NS 250ML IVPB SCH (16:01)
[2022-02-10] MEDS: CEFTRIAXONE 1G VIAL IVP SCH (16:02)
[2022-02-10] MEDS: VANCOMYCIN 1.25 GM/250 ML BAG 250 ML IV SCH (23:48)
[2022-02-11] VITALS (29 sets, daily range): BP systolic 98–137; BP diastolic 53–88
[2022-02-11] MEDS: SOLU-MEDROL 40MG VIAL IVP SCH ×3 (01:26→17:02)
[2022-02-11] MEDS: CHLORHEXIDINE GLUCONATE 473 ML MOUTHWASH MM SCH ×4 (01:33→20:09)
[2022-02-11] MEDS: VANCOMYCIN 1.25 GM/250 ML BAG 250 ML IV SCH ×3 (06:00→21:46)
[2022-02-11] MEDS: INSULIN HUMULIN R 100 UNIT/ML 3ML SQ SCH ×4 (06:17→20:06)
[2022-02-11] MEDS: DIAZEPAM 5 MG TABLET NG SCH ×3 (06:21→23:30)
[2022-02-11] MEDS: IPRATROPIUM/ALBUTEROL SULFATE 3 ML SOLUTION IH SCH ×4 (06:33→23:55)
[2022-02-11 07:48] LABS: HEMATOCRIT 43.5 % (42-54); MEAN CORPUSCULAR HEMOGLOBIN 30.3 pg (27.0-33.0); MEAN CORPUSCULAR HGB CONC 31.5 g/dL (32.0-36.0); MEAN CORPUSCULAR VOLUME 96.2 fL (79-99); PLATELET COUNT (AUTO) 173 K/uL (130-400); RED BLOOD CELL COUNT(AUTO) 4.52 MIL/uL (4.50-6.20); RED CELL DISTRIBUTION WIDTH 14.1 % (11.0-15.5); WHITE BLOOD COUNT (AUTO) 13.7 K/uL (4.8-10.8)
[2022-02-11 09:05] LABS: BAND NEUTROPHILS % (MANUAL) 6 % (0-2); LYMPHOCYTES % (MANUAL) 4 % (22-44); MAN.DIFF COMMENT-IMPRESSION MANUAL DIFFERENTIAL; MONOCYTES % (MANUAL) 9 % (2-9); SEGMENTED NEUTROPHILS % 81 % (40-70)
[2022-02-11 09:07] LABS: PLATELET MORPHOLOGY COMMENT ADEQUATE
[2022-02-11] MEDS: MULTIVITAMIN TABLET NG SCH (09:10)
[2022-02-11] MEDS: ASPIRIN 81MG CHEW TAB PO SCH (09:11)
[2022-02-11] MEDS: PANTOPRAZOLE 40 MG/VIAL IVP SCH (09:11)
[2022-02-11] MEDS: NICOTINE 14 MG/ 24 HR PATCH TD SCH (09:11)
[2022-02-11] MEDS: ENOXAPARIN SODIUM 40 MG/0.4 ML SYRINGE SQ SCH (09:12)
[2022-02-11] MEDS: THIAMINE HCL 100 MG/ML 2ML VIAL IVP SCH (09:13)
[2022-02-11] MEDS: FUROSEMIDE 20MG VIAL IV SCH ×2 (09:13→20:09)
[2022-02-11 09:20] LABS: CREATININE 0.8 mg/dL (0.5-1.5); POTASSIUM 4.5 mmol/L (3.5-5.1)
[2022-02-11] MEDS: FENTANYL 2500MCG+NS 250ML 250 ML IV SCH (10:02)
[2022-02-11] MEDS: CEFTRIAXONE 1G VIAL IVP SCH (17:02)
[2022-02-11] MEDS: AZITHROMYCIN 500MG+NS 250ML IVPB SCH (17:02)
[2022-02-11] MEDS: MIDAZOLAM 100MG-0.9% NS 100ML 100 ML IV SCH (17:40)
[2022-02-12] VITALS (34 sets, daily range): BP systolic 93–154; BP diastolic 46–86
[2022-02-12] MEDS: SOLU-MEDROL 40MG VIAL IVP SCH ×3 (02:00→17:12)
[2022-02-12] MEDS: CHLORHEXIDINE GLUCONATE 473 ML MOUTHWASH MM SCH ×4 (02:00→19:40)
[2022-02-12] MEDS: FENTANYL 2500MCG+NS 250ML 250 ML IV SCH ×2 (02:15→15:44)
[2022-02-12 04:19] LABS: BASOPHILS % (AUTO) 0.4 % (0.0-5.0); LYMPHOCYTES % (AUTO) 3.7 % (21.0-51.0); MEAN CORPUSCULAR HEMOGLOBIN 30.2 pg (27.0-33.0); MEAN CORPUSCULAR HGB CONC 31.3 g/dL (32.0-36.0); MEAN CORPUSCULAR VOLUME 96.7 fL (79-99); PLATELET COUNT (AUTO) 102 K/uL (130-400); RED BLOOD CELL COUNT(AUTO) 4.86 MIL/uL (4.50-6.20); RED CELL DISTRIBUTION WIDTH 14.1 % (11.0-15.5); WHITE BLOOD COUNT (AUTO) 13.6 K/uL (4.8-10.8)
[2022-02-12 04:19] LABS: ABG BASE EXCESS 9.1 mmol/L (-2.0-3.0); ABG HCO3 35.9 mmol/L (21.0-28.0); ABG OXYGEN SATURATION 92.6 % (95.0-99.0); ABG PCO2 58 mmHg (35-48)
[2022-02-12 04:48] LABS: ALBUMIN 2.3 g/dL (3.5-5.0); CREATININE 0.6 mg/dL (0.5-1.5); POTASSIUM 4.8 mmol/L (3.5-5.1); TOTAL PROTEIN, SERUM 6.1 g/dL (6.0-8.3)
[2022-02-12] MEDS: VANCOMYCIN 1.25 GM/250 ML BAG 250 ML IV SCH ×3 (05:32→21:16)
[2022-02-12] MEDS: INSULIN HUMULIN R 100 UNIT/ML 3ML SQ SCH ×4 (05:33→19:40)
[2022-02-12] MEDS: MIDAZOLAM 100MG-0.9% NS 100ML 100 ML IV SCH ×2 (05:39→17:26)
[2022-02-12] MEDS: DIAZEPAM 5 MG TABLET NG SCH ×3 (06:22→22:54)
[2022-02-12] MEDS: IPRATROPIUM/ALBUTEROL SULFATE 3 ML SOLUTION IH SCH ×4 (06:33→23:18)
[2022-02-12] MEDS: ASPIRIN 81MG CHEW TAB PO SCH (08:15)
[2022-02-12] MEDS: NICOTINE 14 MG/ 24 HR PATCH TD SCH (08:15)
[2022-02-12] MEDS: MULTIVITAMIN TABLET NG SCH (08:15)
[2022-02-12] MEDS: FUROSEMIDE 20MG VIAL IV SCH ×2 (08:15→19:39)
[2022-02-12] MEDS: ENOXAPARIN SODIUM 40 MG/0.4 ML SYRINGE SQ SCH (08:15)
[2022-02-12] MEDS: PANTOPRAZOLE 40 MG/VIAL IVP SCH (08:15)
[2022-02-12] MEDS: THIAMINE HCL 100 MG/ML 2ML VIAL IVP SCH (08:18)
[2022-02-12] MEDS: CEFTRIAXONE 1G VIAL IVP SCH (17:12)
[2022-02-12] MEDS: AZITHROMYCIN 500MG+NS 250ML IVPB SCH (17:12)
[2022-02-13] VITALS (43 sets, daily range): BP systolic 112–149; BP diastolic 58–82
[2022-02-13] MEDS: CHLORHEXIDINE GLUCONATE 473 ML MOUTHWASH MM SCH ×4 (02:46→19:42)
[2022-02-13] MEDS: SOLU-MEDROL 40MG VIAL IVP SCH ×3 (02:46→16:41)
[2022-02-13] MEDS: FENTANYL 2500MCG+NS 250ML 250 ML IV SCH (03:40)
[2022-02-13] MEDS: MIDAZOLAM 100MG-0.9% NS 100ML 100 ML IV SCH ×2 (03:41→22:30)
[2022-02-13 05:54] LABS: BASOPHILS % (AUTO) 0.3 % (0.0-5.0); EOSINOPHILS % (AUTO) 0.2 % (0.0-8.0); HEMATOCRIT 45.9 % (42-54); LYMPHOCYTES % (AUTO) 3.9 % (21.0-51.0); MEAN CORPUSCULAR HGB CONC 31.4 g/dL (32.0-36.0); MEAN CORPUSCULAR VOLUME 95.6 fL (79-99); MONOCYTES % (AUTO) 8.7 % (3.0-13.0); NEUTROPHILS % (AUTO) 84.9 % (40.0-77.0); PLATELET COUNT (AUTO) 157 K/uL (130-400); WHITE BLOOD COUNT (AUTO) 13.9 K/uL (4.8-10.8)
[2022-02-13 06:12] LABS: ALBUMIN 2.4 g/dL (3.5-5.0); CREATININE 0.7 mg/dL (0.5-1.5); POTASSIUM 4.8 mmol/L (3.5-5.1); TOTAL PROTEIN, SERUM 6.2 g/dL (6.0-8.3)
[2022-02-13] MEDS: INSULIN HUMULIN R 100 UNIT/ML 3ML SQ SCH ×4 (06:19→20:46)
[2022-02-13] MEDS: IPRATROPIUM/ALBUTEROL SULFATE 3 ML SOLUTION IH SCH ×4 (06:21→23:01)
[2022-02-13] MEDS: DIAZEPAM 5 MG TABLET NG SCH ×3 (06:24→22:47)
[2022-02-13] MEDS: VANCOMYCIN 1.25 GM/250 ML BAG 250 ML IV SCH ×3 (06:32→21:22)
[2022-02-13 07:35] LABS: ABG HCO3 32.6 mmol/L (21.0-28.0); ABG OXYGEN SATURATION 92.6 % (95.0-99.0); ABG PCO2 50 mmHg (35-48)
[2022-02-13] MEDS: FUROSEMIDE 20MG VIAL IV SCH ×2 (08:03→19:42)
[2022-02-13] MEDS: PANTOPRAZOLE 40 MG/VIAL IVP SCH (08:03)
[2022-02-13] MEDS: THIAMINE HCL 100 MG/ML 2ML VIAL IVP SCH (08:03)
[2022-02-13] MEDS: MULTIVITAMIN TABLET NG SCH (08:04)
[2022-02-13] MEDS: NICOTINE 14 MG/ 24 HR PATCH TD SCH (08:21)
[2022-02-13] MEDS: ASPIRIN 81MG CHEW TAB PO SCH (08:21)
[2022-02-13] MEDS: ENOXAPARIN SODIUM 40 MG/0.4 ML SYRINGE SQ SCH (08:22)
[2022-02-13] MEDS: LACTULOSE 20 GM/30 ML UDCUP NG SCH (11:47)
[2022-02-13] MEDS: AZITHROMYCIN 500MG+NS 250ML IVPB SCH (16:41)
[2022-02-13] MEDS: CEFTRIAXONE 1G VIAL IVP SCH (16:41)
[2022-02-13] MEDS: FENTANYL 2500MCG+NS 250ML IV.SOLN IV SCH (22:56)
[2022-02-14] VITALS (37 sets, daily range): BP systolic 97–148; BP diastolic 45–85
[2022-02-14] MEDS: CHLORHEXIDINE GLUCONATE 473 ML MOUTHWASH MM SCH ×4 (02:31→21:00)
[2022-02-14] MEDS: SOLU-MEDROL 40MG VIAL IVP SCH ×3 (02:34→17:14)
[2022-02-14 03:44] LABS: BASOPHILS % (AUTO) 0.1 % (0.0-5.0); HEMATOCRIT 45.8 % (42-54); LYMPHOCYTES % (AUTO) 5.6 % (21.0-51.0); MEAN CORPUSCULAR HEMOGLOBIN 30.1 pg (27.0-33.0); MEAN CORPUSCULAR HGB CONC 31.9 g/dL (32.0-36.0); MEAN CORPUSCULAR VOLUME 94.4 fL (79-99); MONOCYTES % (AUTO) 10.5 % (3.0-13.0); NEUTROPHILS % (AUTO) 81.8 % (40.0-77.0); PLATELET COUNT (AUTO) 168 K/uL (130-400); RED BLOOD CELL COUNT(AUTO) 4.85 MIL/uL (4.50-6.20); RED CELL DISTRIBUTION WIDTH 13.8 % (11.0-15.5); WHITE BLOOD COUNT (AUTO) 14.6 K/uL (4.8-10.8)
[2022-02-14 04:04] LABS: ALBUMIN 2.4 g/dL (3.5-5.0); CREATININE 0.7 mg/dL (0.5-1.5); POTASSIUM 4.3 mmol/L (3.5-5.1); TOTAL PROTEIN, SERUM 6.2 g/dL (6.0-8.3)
[2022-02-14] MEDS: VANCOMYCIN 1.25 GM/250 ML BAG 250 ML IV SCH ×3 (05:13→22:10)
[2022-02-14] MEDS: INSULIN HUMULIN R 100 UNIT/ML 3ML SQ SCH ×4 (06:06→21:00)
[2022-02-14] MEDS: DIAZEPAM 5 MG TABLET NG SCH ×3 (06:32→23:30)
[2022-02-14] MEDS: IPRATROPIUM/ALBUTEROL SULFATE 3 ML SOLUTION IH SCH ×3 (06:46→18:34)
[2022-02-14 06:53] LABS: ABG BASE EXCESS 4.9 mmol/L (-2.0-3.0); ABG OXYGEN SATURATION 92.6 % (95.0-99.0); ABG PCO2 46 mmHg (35-48)
[2022-02-14] MEDS: FUROSEMIDE 20MG VIAL IV SCH ×2 (08:04→21:00)
[2022-02-14] MEDS: THIAMINE HCL 100 MG/ML 2ML VIAL IVP SCH (08:06)
[2022-02-14] MEDS: PANTOPRAZOLE 40 MG/VIAL IVP SCH (08:06)
[2022-02-14] MEDS: MULTIVITAMIN TABLET NG SCH (08:06)
[2022-02-14] MEDS: ENOXAPARIN SODIUM 40 MG/0.4 ML SYRINGE SQ SCH (08:07)
[2022-02-14] MEDS: ASPIRIN 81MG CHEW TAB PO SCH (08:07)
[2022-02-14] MEDS: NICOTINE 14 MG/ 24 HR PATCH TD SCH (08:09)
[2022-02-14] MEDS: LACTULOSE 20 GM/30 ML UDCUP NG SCH (08:56)
[2022-02-14] MEDS: FENTANYL 2500MCG+NS 250ML IV.SOLN IV SCH ×2 (10:37→23:00)
[2022-02-14] MEDS: MIDAZOLAM 100MG-0.9% NS 100ML 100 ML IV SCH ×2 (10:39→22:27)
[2022-02-14] MEDS: AZITHROMYCIN 500MG+NS 250ML IVPB SCH (17:15)
[2022-02-14] MEDS: CEFTRIAXONE 1G VIAL IVP SCH (17:15)
[2022-02-15] VITALS (44 sets, daily range): BP systolic 121–145; BP diastolic 56–82
[2022-02-15] MEDS: IPRATROPIUM/ALBUTEROL SULFATE 3 ML SOLUTION IH SCH ×3 (00:02→19:37)
[2022-02-15] MEDS: SOLU-MEDROL 40MG VIAL IVP SCH ×3 (02:03→16:49)
[2022-02-15] MEDS: CHLORHEXIDINE GLUCONATE 473 ML MOUTHWASH MM SCH ×4 (02:03→20:12)
[2022-02-15 04:23] LABS: BASOPHILS % (AUTO) 0.3 % (0.0-5.0); HEMATOCRIT 46.6 % (42-54); MEAN CORPUSCULAR HGB CONC 31.8 g/dL (32.0-36.0); MEAN CORPUSCULAR VOLUME 94.3 fL (79-99); MONOCYTES % (AUTO) 6.8 % (3.0-13.0); NEUTROPHILS % (AUTO) 86.7 % (40.0-77.0); PLATELET COUNT (AUTO) 165 K/uL (130-400); RED BLOOD CELL COUNT(AUTO) 4.94 MIL/uL (4.50-6.20); RED CELL DISTRIBUTION WIDTH 13.6 % (11.0-15.5); WHITE BLOOD COUNT (AUTO) 15.1 K/uL (4.8-10.8)
[2022-02-15 05:06] LABS: ALBUMIN 2.4 g/dL (3.5-5.0); CREATININE 0.7 mg/dL (0.5-1.5); POTASSIUM 4.7 mmol/L (3.5-5.1); TOTAL PROTEIN, SERUM 6.3 g/dL (6.0-8.3)
[2022-02-15] MEDS: DIAZEPAM 5 MG TABLET NG SCH ×3 (06:34→22:56)
[2022-02-15] MEDS: VANCOMYCIN 1.25 GM/250 ML BAG 250 ML IV SCH ×3 (06:34→21:03)
[2022-02-15] MEDS: INSULIN HUMULIN R 100 UNIT/ML 3ML SQ SCH ×4 (06:36→20:12)
[2022-02-15] MEDS: PANTOPRAZOLE 40 MG/VIAL IVP SCH (07:52)
[2022-02-15] MEDS: THIAMINE HCL 100 MG/ML 2ML VIAL IVP SCH (07:52)
[2022-02-15] MEDS: FUROSEMIDE 20MG VIAL IV SCH ×2 (07:52→19:30)
[2022-02-15] MEDS: ASPIRIN 81MG CHEW TAB PO SCH (07:53)
[2022-02-15] MEDS: NICOTINE 14 MG/ 24 HR PATCH TD SCH (07:53)
[2022-02-15] MEDS: ENOXAPARIN SODIUM 40 MG/0.4 ML SYRINGE SQ SCH (07:53)
[2022-02-15] MEDS: MULTIVITAMIN TABLET NG SCH (07:53)
[2022-02-15 09:00] LABS: ABG BASE EXCESS 7.6 mmol/L (-2.0-3.0); ABG HCO3 34.3 mmol/L (21.0-28.0); ABG OXYGEN SATURATION 92.5 % (95.0-99.0); ABG PCO2 56 mmHg (35-48)
[2022-02-15] MEDS: MIDAZOLAM 100MG-0.9% NS 100ML 100 ML IV SCH ×2 (11:31→23:03)
[2022-02-15] MEDS: FENTANYL 2500MCG+NS 250ML IV.SOLN IV SCH ×2 (11:32→23:05)
[2022-02-15] MEDS: LACTULOSE 20 GM/30 ML UDCUP PO PRN (16:07)
[2022-02-15] MEDS: CEFTRIAXONE 1G VIAL IVP SCH (16:49)
[2022-02-15] MEDS: AZITHROMYCIN 500MG+NS 250ML IVPB SCH (16:49)
[2022-02-16] VITALS (40 sets, daily range): BP systolic 107–148; BP diastolic 57–81
[2022-02-16] MEDS: IPRATROPIUM/ALBUTEROL SULFATE 3 ML SOLUTION IH SCH ×4 (00:31→18:30)
[2022-02-16] MEDS: SOLU-MEDROL 40MG VIAL IVP SCH ×3 (02:14→16:28)
[2022-02-16] MEDS: CHLORHEXIDINE GLUCONATE 473 ML MOUTHWASH MM SCH ×4 (02:15→20:35)
[2022-02-16 03:45] LABS: BASOPHILS % (AUTO) 0.3 % (0.0-5.0); EOSINOPHILS % (AUTO) 0.1 % (0.0-8.0); MEAN CORPUSCULAR HEMOGLOBIN 29.7 pg (27.0-33.0); MEAN CORPUSCULAR VOLUME 92.8 fL (79-99); MONOCYTES % (AUTO) 6.7 % (3.0-13.0); NEUTROPHILS % (AUTO) 86.2 % (40.0-77.0); PLATELET COUNT (AUTO) 85 K/uL (130-400); RED BLOOD CELL COUNT(AUTO) 5.28 MIL/uL (4.50-6.20); RED CELL DISTRIBUTION WIDTH 13.2 % (11.0-15.5); WHITE BLOOD COUNT (AUTO) 17.8 K/uL (4.8-10.8)
[2022-02-16 04:09] LABS: ALBUMIN 2.5 g/dL (3.5-5.0); CREATININE 0.7 mg/dL (0.5-1.5); POTASSIUM 4.2 mmol/L (3.5-5.1); TOTAL PROTEIN, SERUM 6.3 g/dL (6.0-8.3)
[2022-02-16] MEDS: VANCOMYCIN 1.25 GM/250 ML BAG 250 ML IV SCH (05:12)
[2022-02-16] MEDS: INSULIN HUMULIN R 100 UNIT/ML 3ML SQ SCH ×4 (06:27→20:21)
[2022-02-16] MEDS: MULTIVITAMIN TABLET NG SCH (08:10)
[2022-02-16] MEDS: LACTULOSE 20 GM/30 ML UDCUP PO PRN (08:10)
[2022-02-16] MEDS: NICOTINE 14 MG/ 24 HR PATCH TD SCH (08:11)
[2022-02-16] MEDS: DIAZEPAM 5 MG TABLET NG SCH ×3 (08:11→23:21)
[2022-02-16] MEDS: FUROSEMIDE 20MG VIAL IV SCH ×2 (08:11→20:19)
[2022-02-16] MEDS: THIAMINE HCL 100 MG/ML 2ML VIAL IVP SCH (08:11)
[2022-02-16] MEDS: ASPIRIN 81MG CHEW TAB PO SCH (08:11)
[2022-02-16] MEDS: PANTOPRAZOLE 40 MG/VIAL IVP SCH (08:11)
[2022-02-16] MEDS: ENOXAPARIN SODIUM 40 MG/0.4 ML SYRINGE SQ SCH (08:12)
[2022-02-16] MEDS: FENTANYL 2500MCG+NS 250ML IV.SOLN IV SCH (12:53)
[2022-02-16] MEDS: MIDAZOLAM 100MG-0.9% NS 100ML 100 ML IV SCH (12:54)
[2022-02-16] MEDS ORDERED: COMPOUND IV REFRIGERATED 1 EACH IVSOLN MISC PRN (14:30)
[2022-02-16] MEDS: AZITHROMYCIN 500MG+NS 250ML IVPB SCH (16:26)
[2022-02-16] MEDS: CEFTRIAXONE 1G VIAL IVP SCH (16:26)
[2022-02-16] MEDS: VANCOMYCIN 1G 1.5 GM in 0.9% NACL 250ML 250 ML IV SCH (20:21)
[2022-02-17] VITALS (47 sets, daily range): BP systolic 108–167; BP diastolic 56–100
[2022-02-17] MEDS: IPRATROPIUM/ALBUTEROL SULFATE 3 ML SOLUTION IH SCH ×5 (00:43→23:01)
[2022-02-17] MEDS: SOLU-MEDROL 40MG VIAL IVP SCH ×3 (00:53→17:13)
[2022-02-17] MEDS: MIDAZOLAM 100MG-0.9% NS 100ML 100 ML IV SCH (01:11)
[2022-02-17] MEDS: FENTANYL 2500MCG+NS 250ML IV.SOLN IV SCH (01:12)
[2022-02-17] MEDS: CHLORHEXIDINE GLUCONATE 473 ML MOUTHWASH MM SCH ×4 (02:00→20:38)
[2022-02-17 04:13] LABS: BASOPHILS % (AUTO) 0.2 % (0.0-5.0); HEMATOCRIT 45.5 % (42-54); MEAN CORPUSCULAR HEMOGLOBIN 30.1 pg (27.0-33.0); MEAN CORPUSCULAR HGB CONC 32.5 g/dL (32.0-36.0); MEAN CORPUSCULAR VOLUME 92.7 fL (79-99); NEUTROPHILS % (AUTO) 91.5 % (40.0-77.0); PLATELET COUNT (AUTO) 169 K/uL (130-400); RED BLOOD CELL COUNT(AUTO) 4.91 MIL/uL (4.50-6.20); RED CELL DISTRIBUTION WIDTH 13.2 % (11.0-15.5); WHITE BLOOD COUNT (AUTO) 18.4 K/uL (4.8-10.8)
[2022-02-17 04:35] LABS: ALBUMIN 2.4 g/dL (3.5-5.0); CREATININE 0.5 mg/dL (0.5-1.5); POTASSIUM 4.4 mmol/L (3.5-5.1); TOTAL PROTEIN, SERUM 6.2 g/dL (6.0-8.3)
[2022-02-17] MEDS: INSULIN HUMULIN R 100 UNIT/ML 3ML SQ SCH ×4 (06:45→21:00)
[2022-02-17] MEDS: DIAZEPAM 5 MG TABLET NG SCH ×2 (07:25→14:36)
[2022-02-17] MEDS: THIAMINE HCL 100 MG/ML 2ML VIAL IVP SCH (09:16)
[2022-02-17] MEDS: PANTOPRAZOLE 40 MG/VIAL IVP SCH (09:17)
[2022-02-17] MEDS: FUROSEMIDE 20MG VIAL IV SCH ×2 (09:17→20:38)
[2022-02-17] MEDS: NICOTINE 14 MG/ 24 HR PATCH TD SCH (09:17)
[2022-02-17] MEDS: MULTIVITAMIN TABLET NG SCH (09:17)
[2022-02-17] MEDS: ASPIRIN 81MG CHEW TAB PO SCH (09:17)
[2022-02-17] MEDS: VANCOMYCIN 1G 1.5 GM in 0.9% NACL 250ML 250 ML IV SCH ×2 (09:18→21:37)
[2022-02-17 11:33] LABS: ABG BASE EXCESS 5.5 mmol/L (-2.0-3.0); ABG HCO3 29.7 mmol/L (21.0-28.0); ABG OXYGEN SATURATION 96.7 % (95.0-99.0); ABG PCO2 41 mmHg (35-48)
[2022-02-17] MEDS ORDERED: 0.9% NACL 250ML 250 ML ONE ×2 (17:12→17:19)
[2022-02-17] MEDS: AZITHROMYCIN 500MG+NS 250ML IVPB SCH (17:13)
[2022-02-17] MEDS: CEFTRIAXONE 1G VIAL IVP SCH (17:13)
[2022-02-17] MEDS: ENOXAPARIN SODIUM 30 MG/0.3 ML SQ SCH (21:35)
[2022-02-18] VITALS (37 sets, daily range): BP systolic 109–159; BP diastolic 65–87
[2022-02-18] MEDS: DIAZEPAM 5 MG TABLET NG SCH ×2 (00:17→07:30)
[2022-02-18] MEDS: CHLORHEXIDINE GLUCONATE 473 ML MOUTHWASH MM SCH ×4 (00:18→21:52)
[2022-02-18 05:15] LABS: BASOPHILS % (AUTO) 0.2 % (0.0-5.0); LYMPHOCYTES % (AUTO) 4.7 % (21.0-51.0); MEAN CORPUSCULAR HGB CONC 32.2 g/dL (32.0-36.0); MEAN CORPUSCULAR VOLUME 93.3 fL (79-99); MONOCYTES % (AUTO) 8.1 % (3.0-13.0); NEUTROPHILS % (AUTO) 85.9 % (40.0-77.0); PLATELET COUNT (AUTO) 180 K/uL (130-400); RED BLOOD CELL COUNT(AUTO) 5.36 MIL/uL (4.50-6.20); RED CELL DISTRIBUTION WIDTH 12.9 % (11.0-15.5); WHITE BLOOD COUNT (AUTO) 24.3 K/uL (4.8-10.8)
[2022-02-18 05:59] LABS: ALBUMIN 2.7 g/dL (3.5-5.0); CREATININE 0.5 mg/dL (0.5-1.5); MAGNESIUM 2.4 mg/dL (1.80-2.40); PHOSPHORUS 3.1 mg/dL (2.5-4.9); POTASSIUM 4.1 mmol/L (3.5-5.1); TOTAL PROTEIN, SERUM 6.7 g/dL (6.0-8.3)
[2022-02-18] MEDS: IPRATROPIUM/ALBUTEROL SULFATE 3 ML SOLUTION IH SCH ×3 (06:17→18:25)
[2022-02-18] MEDS: INSULIN HUMULIN R 100 UNIT/ML 3ML SQ SCH ×4 (07:30→20:35)
[2022-02-18] MEDS: FUROSEMIDE 20MG VIAL IV SCH ×2 (08:06→19:57)
[2022-02-18] MEDS: ASPIRIN 81MG CHEW TAB PO SCH (08:06)
[2022-02-18] MEDS: MULTIVITAMIN TABLET NG SCH (08:06)
[2022-02-18] MEDS: NICOTINE 14 MG/ 24 HR PATCH TD SCH (08:07)
[2022-02-18] MEDS: PANTOPRAZOLE 40 MG/VIAL IVP SCH (08:07)
[2022-02-18] MEDS: THIAMINE HCL 100 MG/ML 2ML VIAL IVP SCH (08:07)
[2022-02-18] MEDS: ENOXAPARIN SODIUM 30 MG/0.3 ML SQ SCH (08:08)
[2022-02-18] MEDS: VANCOMYCIN 1G 1.5 GM in 0.9% NACL 250ML 250 ML IV SCH ×2 (09:00→21:51)
[2022-02-18] MEDS ORDERED: PREDNISONE 20 MG TABLET PO SCH (09:00)
[2022-02-18] MEDS: LACTULOSE 20 GM/30 ML UDCUP PO PRN (09:37)
[2022-02-18] MEDS ORDERED: MIDAZOLAM HCL SYRUP 10 MG/5 ML 5ML BOTTLE PO PRN (10:00)
[2022-02-18] MEDS: ZOSYN 3.375GM +NS 50ML IV SCH ×2 (10:39→18:43)
[2022-02-18] MEDS: DIAZEPAM 5 MG TABLET PO SCH ×2 (12:24→19:57)
[2022-02-18] MEDS: NYSTATIN 15 GM POWDER TP SCH (19:57)
[2022-02-19] VITALS (28 sets, daily range): BP systolic 91–152; BP diastolic 44–101
[2022-02-19] MEDS: ZOSYN 3.375GM +NS 50ML IV SCH ×3 (01:01→18:13)
[2022-02-19] MEDS: DIAZEPAM 5 MG TABLET PO SCH ×3 (03:44→19:46)
[2022-02-19] MEDS: CHLORHEXIDINE GLUCONATE 473 ML MOUTHWASH MM SCH ×4 (03:45→21:13)
[2022-02-19 04:10] LABS: BASOPHILS % (AUTO) 0.2 % (0.0-5.0); EOSINOPHILS % (AUTO) 0.1 % (0.0-8.0); HEMATOCRIT 52.4 % (42-54); LYMPHOCYTES % (AUTO) 8.3 % (21.0-51.0); MEAN CORPUSCULAR HEMOGLOBIN 29.9 pg (27.0-33.0); MEAN CORPUSCULAR HGB CONC 31.7 g/dL (32.0-36.0); MEAN CORPUSCULAR VOLUME 94.2 fL (79-99); MONOCYTES % (AUTO) 9.5 % (3.0-13.0); NEUTROPHILS % (AUTO) 81.2 % (40.0-77.0); PLATELET COUNT (AUTO) 183 K/uL (130-400); RED BLOOD CELL COUNT(AUTO) 5.56 MIL/uL (4.50-6.20); RED CELL DISTRIBUTION WIDTH 12.8 % (11.0-15.5); WHITE BLOOD COUNT (AUTO) 19.5 K/uL (4.8-10.8)
[2022-02-19 04:25] LABS: CREATININE 0.6 mg/dL (0.5-1.5); MAGNESIUM 2.4 mg/dL (1.80-2.40); PHOSPHORUS 3.9 mg/dL (2.5-4.9); POTASSIUM 3.8 mmol/L (3.5-5.1)
[2022-02-19] MEDS: IPRATROPIUM/ALBUTEROL SULFATE 3 ML SOLUTION IH SCH ×4 (06:33→23:13)
[2022-02-19] MEDS: INSULIN HUMULIN R 100 UNIT/ML 3ML SQ SCH ×4 (06:34→21:00)
[2022-02-19] MEDS: PANTOPRAZOLE 40 MG/VIAL IVP SCH (08:04)
[2022-02-19] MEDS: THIAMINE HCL 100 MG/ML 2ML VIAL IVP SCH (08:04)
[2022-02-19] MEDS: MULTIVITAMIN TABLET NG SCH (08:05)
[2022-02-19] MEDS: ENOXAPARIN SODIUM 40 MG/0.4 ML SYRINGE SQ SCH (08:05)
[2022-02-19] MEDS: FUROSEMIDE 20MG VIAL IV SCH ×2 (08:05→19:46)
[2022-02-19] MEDS: ASPIRIN 81MG CHEW TAB PO SCH (08:05)
[2022-02-19] MEDS: NYSTATIN 15 GM POWDER TP SCH ×2 (08:06→21:12)
[2022-02-19] MEDS: NICOTINE 14 MG/ 24 HR PATCH TD SCH (08:06)
[2022-02-19] MEDS: VANCOMYCIN 1G 1.5 GM in 0.9% NACL 250ML 250 ML IV SCH ×2 (09:18→21:12)
[2022-02-19] MEDS: LACTULOSE 20 GM/30 ML UDCUP PO PRN (14:44)
[2022-02-19] MEDS: POTASSIUM CHLORIDE 10% ELIXIR 20 MEQ/15 ML UDCUP PO PRN (19:46)
[2022-02-20] VITALS (28 sets, daily range): BP systolic 102–139; BP diastolic 39–98
[2022-02-20] MEDS: ZOSYN 3.375GM +NS 50ML IV SCH ×3 (02:44→17:55)
[2022-02-20 03:43] LABS: BASOPHILS % (AUTO) 0.2 % (0.0-5.0); EOSINOPHILS % (AUTO) 0.1 % (0.0-8.0); HEMATOCRIT 50.6 % (42-54); MEAN CORPUSCULAR HGB CONC 31.6 g/dL (32.0-36.0); MEAN CORPUSCULAR VOLUME 94.8 fL (79-99); MONOCYTES % (AUTO) 9.5 % (3.0-13.0); NEUTROPHILS % (AUTO) 83.6 % (40.0-77.0); PLATELET COUNT (AUTO) 182 K/uL (130-400); RED BLOOD CELL COUNT(AUTO) 5.34 MIL/uL (4.50-6.20); RED CELL DISTRIBUTION WIDTH 12.8 % (11.0-15.5); WHITE BLOOD COUNT (AUTO) 20.1 K/uL (4.8-10.8)
[2022-02-20 03:55] LABS: CREATININE 0.6 mg/dL (0.5-1.5); MAGNESIUM 2.3 mg/dL (1.80-2.40); PHOSPHORUS 3.5 mg/dL (2.5-4.9); POTASSIUM 3.6 mmol/L (3.5-5.1)
[2022-02-20] MEDS: CHLORHEXIDINE GLUCONATE 473 ML MOUTHWASH MM SCH ×4 (04:36→22:12)
[2022-02-20] MEDS: DIAZEPAM 5 MG TABLET PO SCH ×3 (04:36→21:03)
[2022-02-20] MEDS: POTASSIUM CHLORIDE 10% ELIXIR 20 MEQ/15 ML UDCUP PO PRN ×2 (04:37→06:46)
[2022-02-20] MEDS: IPRATROPIUM/ALBUTEROL SULFATE 3 ML SOLUTION IH SCH ×3 (06:10→18:38)
[2022-02-20 08:11] LABS: ABG BASE EXCESS 11.9 mmol/L (-2.0-3.0); ABG HCO3 39.5 mmol/L (21.0-28.0); ABG OXYGEN SATURATION 95.1 % (95.0-99.0); ABG PCO2 64 mmHg (35-48)
[2022-02-20] MEDS: THIAMINE HCL 100 MG/ML 2ML VIAL IVP SCH (09:33)
[2022-02-20] MEDS: FUROSEMIDE 20MG VIAL IV SCH ×2 (09:33→21:03)
[2022-02-20] MEDS: ASPIRIN 81MG CHEW TAB PO SCH (09:33)
[2022-02-20] MEDS: MULTIVITAMIN TABLET NG SCH (09:33)
[2022-02-20] MEDS: PANTOPRAZOLE 40 MG/VIAL IVP SCH (09:33)
[2022-02-20] MEDS: NICOTINE 14 MG/ 24 HR PATCH TD SCH (09:34)
[2022-02-20] MEDS: NYSTATIN 15 GM POWDER TP SCH ×2 (09:35→21:05)
[2022-02-20] MEDS: ENOXAPARIN SODIUM 40 MG/0.4 ML SYRINGE SQ SCH (09:40)
[2022-02-20] MEDS: VANCOMYCIN 1G 1.5 GM in 0.9% NACL 250ML 250 ML IV SCH (09:48)
[2022-02-20] MEDS: INSULIN HUMULIN R 100 UNIT/ML 3ML SQ SCH ×4 (11:30→21:04)
[2022-02-20] MEDS: VANCOMYCIN 1G 1.25 GM in 0.9% NACL 250ML 250 ML IV SCH (21:03)
[2022-02-21] VITALS (14 sets, daily range): BP systolic 110–136; BP diastolic 68–85
[2022-02-21] MEDS: IPRATROPIUM/ALBUTEROL SULFATE 3 ML SOLUTION IH SCH ×3 (01:03→12:37)
[2022-02-21] MEDS ORDERED: ACETAMINOPHEN 325 MG TAB ONE (01:49)
[2022-02-21] MEDS ORDERED: ACETAMINOPHEN 325 MG TAB PO PRN (02:00)
[2022-02-21] MEDS: ZOSYN 3.375GM +NS 50ML IV SCH ×2 (02:05→08:17)
[2022-02-21 03:41] LABS: BASOPHILS % (AUTO) 0.2 % (0.0-5.0); EOSINOPHILS % (AUTO) 0.3 % (0.0-8.0); HEMATOCRIT 52.3 % (42-54); LYMPHOCYTES % (AUTO) 6.4 % (21.0-51.0); MEAN CORPUSCULAR HEMOGLOBIN 29.8 pg (27.0-33.0); MEAN CORPUSCULAR HGB CONC 31.5 g/dL (32.0-36.0); MEAN CORPUSCULAR VOLUME 94.6 fL (79-99); MONOCYTES % (AUTO) 8.8 % (3.0-13.0); NEUTROPHILS % (AUTO) 83.8 % (40.0-77.0); PLATELET COUNT (AUTO) 179 K/uL (130-400); RED BLOOD CELL COUNT(AUTO) 5.53 MIL/uL (4.50-6.20); RED CELL DISTRIBUTION WIDTH 12.9 % (11.0-15.5); WHITE BLOOD COUNT (AUTO) 18.3 K/uL (4.8-10.8)
[2022-02-21 04:00] LABS: CREATININE 0.6 mg/dL (0.5-1.5); MAGNESIUM 2.3 mg/dL (1.80-2.40); PHOSPHORUS 3.3 mg/dL (2.5-4.9); POTASSIUM 3.7 mmol/L (3.5-5.1)
[2022-02-21] MEDS: CHLORHEXIDINE GLUCONATE 473 ML MOUTHWASH MM SCH ×3 (04:14→16:00)
[2022-02-21] MEDS: DIAZEPAM 5 MG TABLET PO SCH ×2 (04:16→14:11)
[2022-02-21] MEDS: INSULIN HUMULIN R 100 UNIT/ML 3ML SQ SCH ×3 (07:30→16:07)
[2022-02-21] MEDS: PANTOPRAZOLE 40 MG/VIAL IVP SCH (08:15)
[2022-02-21] MEDS: FUROSEMIDE 20MG VIAL IV SCH (08:15)
[2022-02-21] MEDS: MULTIVITAMIN TABLET NG SCH (08:16)
[2022-02-21] MEDS: ENOXAPARIN SODIUM 40 MG/0.4 ML SYRINGE SQ SCH (08:16)
[2022-02-21] MEDS: THIAMINE HCL 100 MG/ML 2ML VIAL IVP SCH (08:16)
[2022-02-21] MEDS: ASPIRIN 81MG CHEW TAB PO SCH (08:16)
[2022-02-21] MEDS: NYSTATIN 15 GM POWDER TP SCH (08:17)
[2022-02-21] MEDS: NICOTINE 14 MG/ 24 HR PATCH TD SCH (08:17)
[2022-02-21] MEDS: VANCOMYCIN 1G 1.25 GM in 0.9% NACL 250ML 250 ML IV SCH (08:32)
[2022-02-21] MEDS ORDERED: PREDNISONE 20 MG TABLET PO SCH (09:00)
[2022-02-21] MEDS ORDERED: LEVOFLOXACIN 750 MG/D5W 150 ML 150 ML IV SCH (17:00)
== END 2022-02-21 17:05 | DRG 870 ==
LOC: EDH 14:20 → EDHIP 17:27 → 2CH 21:59
PROVIDERS: ADMIT Internal Medicine Infectious Disease; ATTEND Internal Medicine Infectious Disease
PROC: 5A1955Z Respiratory Ventilation, Greater than 96 Consecutive Hours (ICD-10-PCS; principal; 2022-02-08)
PROC: 0BH17EZ Insertion of Endotracheal Airway into Trachea, Via Natural or Artificial Opening (ICD-10-PCS; 2022-02-08)
PROC: 5A09357 Assistance with Respiratory Ventilation, Less than 24 Consecutive Hours, Continuous Positive Airway Pressure (ICD-10-PCS; 2022-02-17)
PROC: 5A09357 Assistance with Respiratory Ventilation, Less than 24 Consecutive Hours, Continuous Positive Airway Pressure (ICD-10-PCS; 2022-02-18)
PROC: 5A09357 Assistance with Respiratory Ventilation, Less than 24 Consecutive Hours, Continuous Positive Airway Pressure (ICD-10-PCS; 2022-02-19)
DX: A41.9 Sepsis, unspecified organism (principal); I50.33 Acute on chronic diastolic (congestive) heart failure; R65.21 Severe sepsis with septic shock; J96.22 Acute and chronic respiratory failure with hypercapnia; J96.21 Acute and chronic respiratory failure with hypoxia; J15.6 Pneumonia due to other Gram-negative bacteria; J44.1 Chronic obstructive pulmonary disease with (acute) exacerbation; J44.0 Chronic obstructive pulmonary disease with (acute) lower respiratory infection; E66.2 Morbid (severe) obesity with alveolar hypoventilation; I42.9 Cardiomyopathy, unspecified; F14.10 Cocaine abuse, uncomplicated; Z20.822 Contact with and (suspected) exposure to COVID-19; E78.5 Hyperlipidemia, unspecified; Z83.3 Family history of diabetes mellitus; Z99.81 Dependence on supplemental oxygen; F17.200 Nicotine dependence, unspecified, uncomplicated; Z91.19 Patient's noncompliance with other medical treatment and regimen; I11.0 Hypertensive heart disease with heart failure; E03.9 Hypothyroidism, unspecified; Z68.31 Body mass index [BMI] 31.0-31.9, adult; E11.65 Type 2 diabetes mellitus with hyperglycemia; D69.6 Thrombocytopenia, unspecified
CPT/HCPCS: 31500; 36415; 36600; 71045; 80048; 80053; 80061; 80202; 80305; 81001; 82140; 82435; 82550; 82803; 82947; 82948; 83036; 83605; 83735; 83874; 83880; 84100; 84132; 84295; 84443; 84484; 85018; 85025; 87040; 87071; 87077; 87186; 87205; 87635; 87804; 92610; 93005; 93306; 93356; 94002; 94003; 94640; 94660; 94664; 94667; 94668; 97039; 99291; C9113; C9803; G0378; J0456; J0696; J1650; J1815; J1940; J2060; J2543; J2920; J2930; J3010; J3370; J3411; J3490; J7050

== ENCOUNTER 2022-09-23 13:49 | Inpatient (IN) | payer MEDICARE, OTHER ==
[~2022-09-23] VITALS: Ht 165.1 cm; Wt 97.1 kg
[~2022-09-23 13:49] MED LIST changes: -ALBU8.5H8 IH; -BUDE180H IH; +CHOL200052 PO; -DILT120T5 PO; -DOXY100T2 PO; -FLUT1BLS3 IH; -FURO20TA4 PO; +FURO40TA5 PO; -IPRNEB IH; -METH4TAB3 PO; +NABU-141 PO; -PANT40TA PO; +POTA99CA PO; +THEO400T3 PO
[2022-09-23 14:16] LABS: BASOPHILS % (AUTO) 0.2 % (0.0-5.0); EOSINOPHILS % (AUTO) 0.5 % (0.0-8.0); LYMPHOCYTES % (AUTO) 14.3 % (21.0-51.0); MEAN CORPUSCULAR HEMOGLOBIN 29.1 pg (27.0-33.0); MEAN CORPUSCULAR HGB CONC 30.4 g/dL (32.0-36.0); MEAN CORPUSCULAR VOLUME 95.7 fL (79-99); MONOCYTES % (AUTO) 12.7 % (3.0-13.0); PLATELET COUNT (AUTO) 146 K/uL (130-400); RED BLOOD CELL COUNT(AUTO) 5.12 MIL/uL (4.50-6.20); RED CELL DISTRIBUTION WIDTH 13.6 % (11.0-15.5); WHITE BLOOD COUNT (AUTO) 6.2 K/uL (4.8-10.8)
[2022-09-23 14:24] LABS: CREATININE 0.7 mg/dL (0.5-1.5); POTASSIUM 4.1 mmol/L (3.5-5.1)
[2022-09-23 14:29] LABS: ALBUMIN 3.3 g/dL (3.5-5.0); TOTAL PROTEIN, SERUM 7.2 g/dL (6.0-8.3)
[2022-09-23 15:26] LABS: ABG BASE EXCESS 14.3 mmol/L (-2.0-3.0); ABG HCO3 45.3 mmol/L (21.0-28.0); ABG OXYGEN SATURATION 88.2 % (95.0-99.0); ABG PCO2 90 mmHg (35-48)
[2022-09-23] MEDS ORDERED: ALBUTEROL 0.083% 2.5 MG/3 ML INH IH ONE (15:30)
[2022-09-23] MEDS ORDERED: SOLU-MEDROL 125MG VIAL IM ONE (15:30)
[2022-09-23 16:06] LABS: APPEARANCE,URINE CLEAR (CLEAR); BILIRUBIN,URINE NEGATIVE (NEGATIVE); COLOR,URINE YELLOW (YELLOW); GLUCOSE, URINE (UA) >=1000 mg/dL (NEGATIVE); KETONES,URINE NEGATIVE (NEGATIVE); LEUKOCYTE ESTERASE ,URINE NEGATIVE Leu/uL (NEGATIVE); NITRATE,URINE NEGATIVE (NEGATIVE); OCCULT BLOOD,URINE NEGATIVE (NEGATIVE); PROTEIN,URINE 20 mg/dL (NEGATIVE); UROBILINOGEN,URINE 3 mg/dL (0.2-1.0)
[2022-09-23 16:53] LABS: MUCUS,URINE RARE LPF (None Seen)
[2022-09-23] MEDS ORDERED: SOLU-MEDROL 40MG VIAL IVP ONE (17:00)
[2022-09-23] MEDS ORDERED: ACETAMINOPHEN 325 MG TAB PO PRN (17:00)
[2022-09-23] MEDS ORDERED: ONDANSETRON 4MG INJ IVP PRN (17:00)
[2022-09-23] MEDS: CEFEPIME HCL 2 GM VIAL IVP SCH (17:10)
[2022-09-23] MEDS ORDERED: SODIUM CHLORIDE 3% FOR INHALATION 4 ML/AMP VIAL.NEB IH ONE (18:30)
[2022-09-23] MEDS: SOLU-MEDROL 40MG VIAL IVP SCH (20:42)
[2022-09-24] MEDS: SOLU-MEDROL 40MG VIAL IVP SCH ×3 (02:05→15:00)
[2022-09-24 04:00] VITALS: BP 130/66
[2022-09-24] MEDS: CEFEPIME HCL 2 GM VIAL IVP SCH (04:45)
[2022-09-24] MEDS ORDERED: NABUMETONE 500 MG PO SCH (05:00)
[2022-09-24] MEDS ORDERED: IPRATROPIUM/ALBUTEROL SULFATE 3 ML SOLUTION IH PRN (05:00)
[2022-09-24] MEDS: IPRATROPIUM 0.5 MG/2.5 ML INH IH SCH ×2 (06:42→13:28)
[2022-09-24 06:45] LABS: ALBUMIN 3.4 g/dL (3.5-5.0); CREATININE 0.9 mg/dL (0.5-1.5); MAGNESIUM 1.9 mg/dL (1.80-2.40); POTASSIUM 4.1 mmol/L (3.5-5.1)
[2022-09-24 07:01] LABS: ABG BASE EXCESS 8.7 mmol/L (-2.0-3.0); ABG HCO3 39.7 mmol/L (21.0-28.0); ABG OXYGEN SATURATION 93.8 % (95.0-99.0); ABG PCO2 89 mmHg (35-48)
[2022-09-24 07:02] LABS: HEMATOCRIT 46.8 % (42-54); LYMPHOCYTES % (AUTO) 6.5 % (21.0-51.0); MEAN CORPUSCULAR HEMOGLOBIN 28.9 pg (27.0-33.0); MEAN CORPUSCULAR HGB CONC 30.3 g/dL (32.0-36.0); MEAN CORPUSCULAR VOLUME 95.3 fL (79-99); MONOCYTES % (AUTO) 2.7 % (3.0-13.0); NEUTROPHILS % (AUTO) 90.5 % (40.0-77.0); PLATELET COUNT (AUTO) 156 K/uL (130-400); RED BLOOD CELL COUNT(AUTO) 4.91 MIL/uL (4.50-6.20); RED CELL DISTRIBUTION WIDTH 13.5 % (11.0-15.5); WHITE BLOOD COUNT (AUTO) 6.8 K/uL (4.8-10.8)
[2022-09-24 08:00] VITALS: BP 130/68
[2022-09-24] MEDS ORDERED: **HM** VIT D3 50MCG PO SCH (09:00)
[2022-09-24] MEDS ORDERED: MONTELUKAST SODIUM 10 MG TAB PO SCH (09:00)
[2022-09-24] MEDS ORDERED: FUROSEMIDE 40 MG TABLET PO SCH (09:00)
[2022-09-24] MEDS ORDERED: POTASSIUM CITRATE 99 MG PO SCH (09:00)
[2022-09-24] MEDS ORDERED: SACUBITRIL/VALSARTAN 1 EACH TABLET PO SCH (09:00)
[2022-09-24] MEDS ORDERED: LEVOFLOXACIN 500 MG TABLET PO SCH (09:00)
[2022-09-24] MEDS ORDERED: NICOTINE 21 MG/ 24 HR PATCH TD SCH (09:00)
[2022-09-24] MEDS ORDERED: DILTIAZEM 120MG SR CAP PO SCH (09:00)
[2022-09-24] MEDS ORDERED: **HM**FARXIGA 10MG PO SCH (09:00)
[2022-09-24] MEDS ORDERED: PANTOPRAZOLE 40 MG TAB DR PO SCH (09:00)
[2022-09-24 11:19] LABS: AMPHET/METH SCREEN,URINE NEGATIVE (NEGATIVE); BARBITURATE SCREEN, URINE NEGATIVE (NEGATIVE); BENZODIAZEPINES SCREEN,URINE NEGATIVE (NEGATIVE); CANNABINOID SCREEN,URINE NEGATIVE (NEGATIVE); COCAINE SCREEN,URINE POSITIVE (NEGATIVE); OPIATE SCREEN,URINE NEGATIVE (NEGATIVE); PHENCYCLIDINE SCREEN,URINE NEGATIVE (NEGATIVE)
[2022-09-24 12:00] VITALS: BP 102/60
[2022-09-24 16:00] VITALS: BP 116/54
[2022-09-24] MEDS ORDERED: CEFEPIME HCL 1 GM VIAL IVPB SCH (17:00)
[2022-09-24] MEDS ORDERED: THEOPHYLLINE ANHYDROUS 100 MG CAP.ER.24H PO SCH (21:00)
[2022-09-24] MEDS ORDERED: ZOLPIDEM TARTRATE 5 MG TAB PO SCH (21:00)
[2022-09-24] MEDS ORDERED: ATORVASTATIN 10 MG TABLET PO SCH (21:00)
[2022-09-24] MEDS ORDERED: IPRATROPIUM 0.5 MG/2.5 ML INH IH SCH (22:00)
== END 2022-09-24 18:30 | disposition left against medical advice (07) | DRG 193 ==
LOC: EDH 13:49 → EEVIPCON 13:49 → EDHIP 16:35 → 4BH 09-24 05:00
PROVIDERS: ADMIT Internal Medicine Infectious Disease; ATTEND Internal Medicine Infectious Disease
PROC: 5A09357 Assistance with Respiratory Ventilation, Less than 24 Consecutive Hours, Continuous Positive Airway Pressure (ICD-10-PCS; principal; 2022-09-23)
PROC: 5A09357 Assistance with Respiratory Ventilation, Less than 24 Consecutive Hours, Continuous Positive Airway Pressure (ICD-10-PCS; 2022-09-24)
DX: J18.9 Pneumonia, unspecified organism (principal); J96.21 Acute and chronic respiratory failure with hypoxia; J96.22 Acute and chronic respiratory failure with hypercapnia; J44.0 Chronic obstructive pulmonary disease with (acute) lower respiratory infection; J44.1 Chronic obstructive pulmonary disease with (acute) exacerbation; I50.30 Unspecified diastolic (congestive) heart failure; I11.0 Hypertensive heart disease with heart failure; N20.0 Calculus of kidney; Z20.822 Contact with and (suspected) exposure to COVID-19; E78.5 Hyperlipidemia, unspecified; F17.200 Nicotine dependence, unspecified, uncomplicated; Z53.29 Procedure and treatment not carried out because of patient's decision for other reasons; E11.9 Type 2 diabetes mellitus without complications; F14.10 Cocaine abuse, uncomplicated; Z91.14 Patient's other noncompliance with medication regimen; Z82.49 Family history of ischemic heart disease and other diseases of the circulatory system; Z83.3 Family history of diabetes mellitus; Z91.199 Patient's noncompliance with other medical treatment and regimen due to unspecified reason; Z99.81 Dependence on supplemental oxygen
CPT/HCPCS: 36415; 36600; 71045; 71250; 78582; 80053; 80305; 81001; 82803; 82948; 83735; 83880; 84145; 84484; 85025; 85378; 87040; 87071; 87205; 87635; 87804; 93005; 93970; 94640; 94660; 94664; A9540; A9558; C9803; G0378; J0692; J2920; J2930

== ENCOUNTER 2023-12-25 16:15 | Inpatient (IN) | payer OTHER ==
[~2023-12-25] VITALS: Ht 165.1 cm; Wt 102.2 kg
[~2023-12-25 16:15] MED LIST changes: -ATOR10 PO; -DAPA10TA PO; +PRED20B PO; -PRED20TA3 PO
[2023-12-25 16:36] LABS: BASOPHILS # (AUTO) 0.02 K/uL (0.00-0.20); BASOPHILS % (AUTO) 0.3 % (0.0-5.0); EOSINOPHILS # (AUTO) 0.06 K/uL (0.00-0.70); EOSINOPHILS % (AUTO) 0.8 % (0.0-8.0); HEMATOCRIT 42.4 % (42-54); IMMATURE GRANULOCYTE ABSOLUTE 0.04 K/uL (0-1); LYMPHOCYTES # (AUTO) 1.3 K/uL (1.0-4.8); LYMPHOCYTES % (AUTO) 17.5 % (21.0-51.0); MEAN CORPUSCULAR HEMOGLOBIN 31.1 pg (27.0-33.0); MEAN CORPUSCULAR HGB CONC 30.2 g/dL (32.0-36.0); MEAN CORPUSCULAR VOLUME 102.9 fL (79-99); MONOCYTES % (AUTO) 13.7 % (3.0-13.0); NEUTROPHILS % (AUTO) 67.2 % (40.0-77.0); PLATELET COUNT (AUTO) 210 K/uL (130-400); RED BLOOD CELL COUNT(AUTO) 4.12 MIL/uL (4.50-6.20); RED CELL DISTRIBUTION WIDTH 12.4 % (11.0-15.5); WHITE BLOOD COUNT (AUTO) 7.4 K/uL (4.8-10.8)
[2023-12-25] MEDS: IPRATROPIUM/ALBUTEROL SULFATE 3 ML SOLUTION IH ONE (16:48)
[2023-12-25 16:53] LABS: BILIRUBIN,TOTAL 0.2 mg/dL (0.2-1.0); CREATININE 0.7 mg/dL (0.5-1.3); POTASSIUM 3.4 mmol/L (3.5-5.1); TOTAL PROTEIN, SERUM 6.9 g/dL (6.0-8.3)
[2023-12-25 16:59] VITALS: PULSE 71; RESP 21
[2023-12-25 17:00] LABS: ABG BASE EXCESS 10.2 mmol/L (-2.0-3.0); ABG HCO3 39.1 mmol/L (21.0-28.0); ABG OXYGEN SATURATION 95.2 % (95.0-99.0); ABG PCO2 72 mmHg (35-48); ABG PH 7.354 (7.35-7.450); PO2, ARTERIAL BG 81.9 mmHg (83.0-108.0); VENT MODE, BG NC (ROOM AIR)
[2023-12-25 17:05] LABS: B-TYPE NATRIURETIC PEPTIDE 83 pg/mL (0-100)
[2023-12-25] MEDS: PREDNISONE 20 MG TABLET PO STA (17:08)
[2023-12-25] MEDS: 0.9%NACL 1000ML 1,000 ML IV SCH (17:08)
[2023-12-25] MEDS ORDERED: ONDANSETRON 4MG INJ IVP PRN (19:30)
[2023-12-25] MEDS: INSULIN LISPRO 100 UNIT/ML 3ML SQ SCH (20:42)
[2023-12-25 21:10] VITALS: O2SAT 98
[2023-12-25] MEDS ORDERED: LOSA25TA41 PO (21:44)
[2023-12-25] MEDS ORDERED: ASPI-1443 PO (21:44)
[2023-12-25] MEDS ORDERED: FLUT1BLS3 IH (21:44)
[2023-12-25] MEDS ORDERED: DAPA10TA PO (21:44)
[2023-12-25 22:29] VITALS: BP 125/65; PULSE 73; RESP 18
[2023-12-25] MEDS: SOLU-MEDROL 40MG VIAL IVP SCH (22:44)
[2023-12-25] MEDS: IPRATROPIUM/ALBUTEROL SULFATE 3 ML SOLUTION IH SCH (22:54)
[2023-12-25 22:57] VITALS: PULSE 78; PULSE 81; RESP 20; RESP 21; O2SAT 92
[2023-12-25 23:08] VITALS: PULSE 81; RESP 20; O2SAT 94
[2023-12-25 23:56] VITALS: BP 104/43; PULSE 67; RESP 17
[2023-12-26] VITALS (15 sets, daily range): BP systolic 112–126; BP diastolic 57–73; PULSE 63–88; RESP 16–22; O2SAT 84–94
[2023-12-26 05:05] LABS: BASOPHILS # (AUTO) 0.01 K/uL (0.00-0.20); BASOPHILS % (AUTO) 0.2 % (0.0-5.0); HEMATOCRIT 43.4 % (42-54); IMMATURE GRANULOCYTE ABSOLUTE 0.04 K/uL (0-1); LYMPHOCYTES # (AUTO) 0.6 K/uL (1.0-4.8); LYMPHOCYTES % (AUTO) 9.8 % (21.0-51.0); MEAN CORPUSCULAR HEMOGLOBIN 30.5 pg (27.0-33.0); MEAN CORPUSCULAR HGB CONC 30.4 g/dL (32.0-36.0); MEAN CORPUSCULAR VOLUME 100.2 fL (79-99); MONOCYTES # (AUTO) 0.3 K/uL (0.1-1.0); MONOCYTES % (AUTO) 4.1 % (3.0-13.0); NEUTROPHILS # (AUTO) 5.6 K/uL (1.8-7.7); NEUTROPHILS % (AUTO) 85.3 % (40.0-77.0); PLATELET COUNT (AUTO) 219 K/uL (130-400); RED BLOOD CELL COUNT(AUTO) 4.33 MIL/uL (4.50-6.20); RED CELL DISTRIBUTION WIDTH 12.4 % (11.0-15.5); WHITE BLOOD COUNT (AUTO) 6.5 K/uL (4.8-10.8)
[2023-12-26 05:19] LABS: CREATININE 0.5 mg/dL (0.5-1.3); MAGNESIUM 2.3 mg/dL (1.80-2.40); POTASSIUM 4.8 mmol/L (3.5-5.1)
[2023-12-26 05:37] LABS: WBC MORPHOLOGY CONSISTENT W/DIFF
[2023-12-26] MEDS: BUDESONIDE 0.5 MG/2 ML INH IH SCH (06:15)
[2023-12-26] MEDS: GUAIFENESIN-CODEINE 5 ML SYRUP PO PRN (09:23)
[2023-12-26] MEDS: AZITHROMYCIN 500MG+NS 250ML 250 ML IVPB SCH (14:00)
[2023-12-26] MEDS: ZOSYN 3.375GM +NS 50ML IV SCH (16:01)
[2023-12-26] MEDS: ACETAMINOPHEN 325 MG TAB PO PRN (16:11)
[2023-12-26] MEDS: ENOXAPARIN SODIUM 40 MG/0.4 ML SYRINGE SQ SCH (17:26)
[2023-12-26] MEDS: FAMOTIDINE 20MG TAB PO SCH (20:08)
[2023-12-26] MEDS: ATORVASTATIN 10 MG TABLET PO SCH (20:08)
[2023-12-26] MEDS: MONTELUKAST SODIUM 10 MG TAB PO SCH (20:09)
[2023-12-26 21:22] LABS: SARS-CoV-2, RNA, NAAT NEGATIVE SARS CoV-2 (NEGATIVE)
[2023-12-26 21:25] LABS: INFLUENZA TYPE A Negative For Type A (NEGATIVE); INFLUENZA TYPE B Negative For Type B (NEGATIVE)
[2023-12-27] VITALS (16 sets, daily range): BP systolic 113–144; BP diastolic 64–103; PULSE 65–103; RESP 17–22; O2SAT 84–96
[2023-12-27 05:19] LABS: BASOPHILS # (AUTO) 0.02 K/uL (0.00-0.20); BASOPHILS % (AUTO) 0.2 % (0.0-5.0); HEMATOCRIT 40.9 % (42-54); IMMATURE GRANULOCYTE ABSOLUTE 0.09 K/uL (0-1); LYMPHOCYTES # (AUTO) 0.7 K/uL (1.0-4.8); LYMPHOCYTES % (AUTO) 8.6 % (21.0-51.0); MEAN CORPUSCULAR HEMOGLOBIN 30.4 pg (27.0-33.0); MEAN CORPUSCULAR HGB CONC 30.1 g/dL (32.0-36.0); MEAN CORPUSCULAR VOLUME 101.2 fL (79-99); MONOCYTES # (AUTO) 0.5 K/uL (0.1-1.0); NEUTROPHILS # (AUTO) 7.1 K/uL (1.8-7.7); NEUTROPHILS % (AUTO) 84.1 % (40.0-77.0); PLATELET COUNT (AUTO) 211 K/uL (130-400); RED BLOOD CELL COUNT(AUTO) 4.04 MIL/uL (4.50-6.20); RED CELL DISTRIBUTION WIDTH 12.7 % (11.0-15.5); WHITE BLOOD COUNT (AUTO) 8.4 K/uL (4.8-10.8)
[2023-12-27 05:26] LABS: CREATININE 0.5 mg/dL (0.5-1.3); MAGNESIUM 2.2 mg/dL (1.80-2.40); POTASSIUM 4.1 mmol/L (3.5-5.1)
[2023-12-27] MEDS: (Dapagliflozin Propanediol (Farxiga) 1 TAB) PO SCH (09:00)
[2023-12-27] MEDS ORDERED: MONTELUKAST SODIUM 10 MG TAB PO SCH (09:00)
[2023-12-27] MEDS: (Fluticasone/Umeclidin/Vilanter (Trelegy Ellipta 100-62.5- IH SCH (09:00)
[2023-12-27] MEDS: (Cholecalciferol (Vitamin D3) (Vitamin D3) 50 MCG) PO SCH (09:00)
[2023-12-27] MEDS: LOSARTAN 25 MG TABLET PO SCH (09:31)
[2023-12-27] MEDS: FUROSEMIDE 40 MG TABLET PO SCH (09:31)
[2023-12-27] MEDS: ASPIRIN 81 MG EC TAB PO SCH (09:31)
[2023-12-28] VITALS (8 sets, daily range): BP systolic 108–122; BP diastolic 61–74; PULSE 60–79; RESP 18–23; O2SAT 94–96
[2023-12-28 04:12] LABS: BASOPHILS # (AUTO) 0.02 K/uL (0.00-0.20); BASOPHILS % (AUTO) 0.2 % (0.0-5.0); IMMATURE GRANULOCYTE ABSOLUTE 0.13 K/uL (0-1); LYMPHOCYTES # (AUTO) 0.7 K/uL (1.0-4.8); LYMPHOCYTES % (AUTO) 7.8 % (21.0-51.0); MEAN CORPUSCULAR HEMOGLOBIN 30.5 pg (27.0-33.0); MEAN CORPUSCULAR VOLUME 101.7 fL (79-99); MONOCYTES # (AUTO) 0.4 K/uL (0.1-1.0); NEUTROPHILS # (AUTO) 8.1 K/uL (1.8-7.7); NEUTROPHILS % (AUTO) 86.6 % (40.0-77.0); PLATELET COUNT (AUTO) 176 K/uL (130-400); RED BLOOD CELL COUNT(AUTO) 4.03 MIL/uL (4.50-6.20); RED CELL DISTRIBUTION WIDTH 12.8 % (11.0-15.5); WHITE BLOOD COUNT (AUTO) 9.4 K/uL (4.8-10.8)
[2023-12-28 04:24] LABS: CREATININE 0.6 mg/dL (0.5-1.3); POTASSIUM 4.4 mmol/L (3.5-5.1)
== END 2023-12-28 14:10 | disposition home or self-care (01) | DRG 189 ==
LOC: EDH 16:15 → EDHIP 19:33 → 3DH 21:02
PROVIDERS: ADMIT Internal Medicine Infectious Disease; ATTEND Internal Medicine Infectious Disease
PROC: 5A09357 Assistance with Respiratory Ventilation, Less than 24 Consecutive Hours, Continuous Positive Airway Pressure (ICD-10-PCS; principal; 2023-12-25)
PROC: 5A09357 Assistance with Respiratory Ventilation, Less than 24 Consecutive Hours, Continuous Positive Airway Pressure (ICD-10-PCS; 2023-12-26)
PROC: 5A09357 Assistance with Respiratory Ventilation, Less than 24 Consecutive Hours, Continuous Positive Airway Pressure (ICD-10-PCS; 2023-12-27)
PROC: 5A09357 Assistance with Respiratory Ventilation, Less than 24 Consecutive Hours, Continuous Positive Airway Pressure (ICD-10-PCS; 2023-12-28)
DX: J96.21 Acute and chronic respiratory failure with hypoxia (principal); J44.1 Chronic obstructive pulmonary disease with (acute) exacerbation; J98.11 Atelectasis; J96.22 Acute and chronic respiratory failure with hypercapnia; Z20.822 Contact with and (suspected) exposure to COVID-19; I11.0 Hypertensive heart disease with heart failure; F14.10 Cocaine abuse, uncomplicated; E78.5 Hyperlipidemia, unspecified; D64.9 Anemia, unspecified; E11.65 Type 2 diabetes mellitus with hyperglycemia; E66.9 Obesity, unspecified; E87.6 Hypokalemia; F10.10 Alcohol abuse, uncomplicated; F17.200 Nicotine dependence, unspecified, uncomplicated; I49.3 Ventricular premature depolarization; I50.9 Heart failure, unspecified; Z68.35 Body mass index [BMI] 35.0-35.9, adult; Z82.49 Family history of ischemic heart disease and other diseases of the circulatory system; Z99.81 Dependence on supplemental oxygen; Z83.3 Family history of diabetes mellitus; Z86.16 Personal history of COVID-19; Z91.199 Patient's noncompliance with other medical treatment and regimen due to unspecified reason
CPT/HCPCS: 36415; 36600; 71045; 80048; 80053; 82803; 82948; 83605; 83735; 83880; 84145; 84484; 85025; 87040; 87635; 87804; 93005; 94640; 94660; 94664; 99291; G0378; J0456; J1650; J1815; J2543; J2920

== ENCOUNTER 2024-03-14 21:51 | Emergency (ER) | payer OTHER ==
[~2024-03-14] VITALS: Ht 165.1 cm; Wt 99.8 kg
[~2024-03-14 21:51] MED LIST changes: +ASPI-1443 PO; +DAPA10TA PO; +FLUT1BLS3 IH; +LOSA25TA41 PO
[2024-03-14] MEDS: SOLU-MEDROL 125MG VIAL IVP ONE (22:23)
[2024-03-14 22:32] VITALS: PULSE 72
[2024-03-14 22:32] LABS: BASOPHILS # (AUTO) 0.03 K/uL (0.00-0.20); BASOPHILS % (AUTO) 0.4 % (0.0-5.0); EOSINOPHILS # (AUTO) 0.05 K/uL (0.00-0.70); EOSINOPHILS % (AUTO) 0.7 % (0.0-8.0); HEMATOCRIT 42.7 % (42-54); IMMATURE GRANULOCYTE ABSOLUTE 0.02 K/uL (0-1); LYMPHOCYTES # (AUTO) 1.1 K/uL (1.0-4.8); LYMPHOCYTES % (AUTO) 15.8 % (21.0-51.0); MEAN CORPUSCULAR HEMOGLOBIN 30.5 pg (27.0-33.0); MEAN CORPUSCULAR VOLUME 101.9 fL (79-99); MONOCYTES # (AUTO) 1.1 K/uL (0.1-1.0); MONOCYTES % (AUTO) 14.9 % (3.0-13.0); NEUTROPHILS # (AUTO) 4.9 K/uL (1.8-7.7); NEUTROPHILS % (AUTO) 67.9 % (40.0-77.0); PLATELET COUNT (AUTO) 148 K/uL (130-400); RED BLOOD CELL COUNT(AUTO) 4.19 MIL/uL (4.50-6.20); RED CELL DISTRIBUTION WIDTH 12.4 % (11.0-15.5); WHITE BLOOD COUNT (AUTO) 7.2 K/uL (4.8-10.8)
[2024-03-14] MEDS: IPRATROPIUM/ALBUTEROL SULFATE 3 ML SOLUTION IH ONE (22:32)
[2024-03-14 22:47] LABS: ALBUMIN 3.4 g/dL (3.5-5.0); BILIRUBIN,TOTAL 0.2 mg/dL (0.2-1.0); CREATININE 0.7 mg/dL (0.5-1.3); POTASSIUM 3.8 mmol/L (3.5-5.1); TOTAL PROTEIN, SERUM 6.8 g/dL (6.0-8.3)
[2024-03-14] MEDS: LEVOFLOXACIN 500 MG TABLET PO SCH (23:20)
[2024-03-14] MEDS ORDERED: LEVO-70 PO (23:51)
[2024-03-14] MEDS ORDERED: METH4TAB3 PO (23:51)
[2024-03-15] MEDS ORDERED: SOLU-MEDROL 125MG VIAL IVP ONE
[2024-03-15 00:45] VITALS: BP 131/60; PULSE 72; RESP 18; O2SAT 94
[2024-03-15] MEDS ORDERED: BUDESONIDE 0.5 MG/2 ML INH IH SCH (06:00)
== END 2024-03-15 01:01 | disposition home or self-care (01) ==
LOC: EDH 21:51
DX: J44.1 Chronic obstructive pulmonary disease with (acute) exacerbation (principal); F14.10 Cocaine abuse, uncomplicated; E11.9 Type 2 diabetes mellitus without complications; Z91.041 Radiographic dye allergy status; Z79.82 Long term (current) use of aspirin; Z79.899 Other long term (current) drug therapy; Z98.890 Other specified postprocedural states; Z99.81 Dependence on supplemental oxygen
CPT/HCPCS: 99284; 96374; 71045; 80053; 85025; 36415; 94640; J2919

== ENCOUNTER → 2024-06-14 | Outpatient (CLI) | payer OTHER ==
[~2024-06-14] MED LIST changes: +LEVO-70 PO; +METH4TAB3 PO
--- NOTE | 2024-06-16 18:20 | HMCSR ---
APPROVED REPORT Bilateral Lower Extremity Venous Study for DVT., Venous Competence.Study performed with patient in up right position or in reverse Trendelenburg. Vein Imaging CFV (R): Normal flow, augmentation and compression. No evidence of DVT, Diameter 11.3 mm SFJ (R): Normal flow, augmentation and compression. No evidence of DVT. FEM (R): Normal flow, augmentation and compression. No evidence of DVT. POP (R): Normal flow, augmentation and compression. No evidence of DVT. DFV (R): Normal flow, augmentation and compression. No evidence of DVT. PTV (R): Normal flow, augmentation and compression. No evidence of DVT. Peroneals (R): Normal flow, augmentation and compression. No evidence of DVT. GAS (R): Normal flow, augmentation and compression. No evidence of DVT. CFV (L): Normal flow, augmen tation and compression. No evidence of DVT, Diameter 10.4 mm SFJ (L): Normal flow, augmentation and compression. No evidence of DV FEM (L): Normal flow, augmentation and compression. No evidence of DVT. POP (L): Normal flow, augmentation and compression. No evidence of DVT, 550 ms of DVR. DFV (L): Normal flow, augmentation and compression. No evidence of DVT. PTV (L): Normal flow, augmentation and compression. No evidence of DVT. Peroneals (L): Normal flow, augmentation and compression. No evidence of DVT. GAS (L): Normal flow, augmentation and compression. No evidence of DVT. Technologist Impression The deep veins of the bilateral lower extremities appear patent and compressible without evidence of thrombus. Deep venous reflux demonstrated in the left popliteal vein. There is evidence of significant superficial venous insufficiency in the bilateral greater saphenous veins and the left smaller saphenous vein. RGSV Junction 6.3 mm 648 ms Mid thigh 4.2 mm 2039 Knee 4.5 mm 506 ms Mid- calf 2.2 mm 261 ms RSSV Prox 2.2 mm 0 ms Mid 1.8 mm 0 ms LGSV Junction 3.8 mm 0 ms Mid thigh 3.1 mm 161 ms Knee 3.5 mm 0 ms(Large accessory 9.6 mm 1667 ms) Mid-calf 3.5 mm 0 ms LSSV Prox 2.5 mm 250 ms Mid 3.9 mm 1422 ms Conclusion Deep venous reflux demonstrated in the left popliteal vein. There is evidence of significant superficial venous insufficiency in the bilateral greater saphenous veins and the left smaller saphenous vein. Consider formal venography with intravascular ultrasound if clinically indicated Conclusion Deep venous reflux demonstrated in the left popliteal vein. There is evidence of significant superficial venous insufficiency in the bilateral greater saphenous veins and the left smaller saphenous vein. Consider formal venography with intravascular ultrasound if clinically indicated
--- NOTE | 2024-06-16 18:20 | HMCSR ---
APPROVED REPORT Laterality: Bilateral VELOCITY AND DOPPLER WAVEFORM ANALYSIS FIRE PROTECTION EQUIPMENT TECHNICIAN (R) 158.7cm/sec, Triphasic, FIRE PROTECTION EQUIPMENT TECHNICIAN (L) 181.8cm/sec, Triphasic, Prof Fem Art. (R) 136.0cm/sec, Triphasic, Prof Fem Art. (L) 130.9cm/sec, Biphasic, Fem Art Prox. (R) 120.9cm/sec, Triphasic, Fem Art Prox. (L) 145.9cm/sec, Triphasic, Fem Art Mid. (R) 100.1cm/sec, Triphasic, Fem Art Mid. (L) 154.1cm/sec, Triphasic, Fem Art Dist (R) 107.7cm/sec, Triphasic, Fem Art Dist. (L) 128.8cm/sec, Triphasic, Pop Art(AK) (R) 103.9cm/sec, Triphasic, Pop Art (AK) (L) 120.3cm/sec, Triphasic, Pop Art (Fossa)(R) 73.7cm/sec, Triphasic, Pop Art (Fossa) (L) 103.4cm/sec, Triphasic, Pop Art(BK) (R) 122.8cm/sec, Triphasic, Pop Art (BK) (L) 130.9cm/sec, Triphasic, CLOTH SECONDS SORTER Prox. (R) 102.0cm/sec, Triphasic, CLOTH SECONDS SORTER Prox. (L) 97.1cm/sec, Triphasic, CLOTH SECONDS SORTER Mid. (R) 128.4cm/sec, Triphasic, CLOTH SECONDS SORTER Mid. (L) 109.8cm/sec, Triphasic, CLOTH SECONDS SORTER Dist. (R) 100.1cm/sec, Triphasic, CLOTH SECONDS SORTER Dist. (L) 89.7cm/sec, Triphasic, Per Art Dist. (R) 56.7cm/sec, Triphasic, Per Art Dist. (L) 91.1cm/sec, Triphasic, LEONOR Prox. (R) 82.8cm/sec, Triphasic, LEONOR Prox. (L) 173.8cm/sec, Triphasic, LEONOR Mid. (R) 82.8cm/sec, Triphasic LEONOR Mid. (L) 127.0cm/sec, Triphasic, LEONOR Dist. (R) 103.5cm/sec, Triphasic, LEONOR Dist. (L) 93.9cm/sec, Triphasic, Technologist Impression Diffuse atherosclerosis throughout the bilateral lower extremities with no evidence of significant ar terial insufficiency. Conclusion No evidence of significant arterial insufficiency of bilateral lower extremities. Conclusion No evidence of significant arterial insufficiency of bilateral lower extremities.
== END | disposition home or self-care (01) ==
LOC: SHCH 13:05
PROVIDERS: ATTEND Internal Medicine Cardiovascular Disease
DX: I87.2 Venous insufficiency (chronic) (peripheral) (principal); I73.9 Peripheral vascular disease, unspecified
CPT/HCPCS: 93925; 93970

== ENCOUNTER 2024-08-11 23:35 | Inpatient (IN) | payer OTHER ==
[~2024-08-11] VITALS: Ht 162.6 cm; Wt 101.5 kg
--- NOTE | 2024-08-11 23:51 | EKG ---
[facility] Test Date: 2024-08-11 Test Time: 23:49:28 Pat Name: CHRISTINE CURTIS Department: ED Room: 215 Gender: M Records Clerk: [id number] : 1965 Requested By: HIMA CHAN Order Number: [id number] Reading MD: Rancho Cook Measurements Intervals [place] Rate: 101 P: 47 [place]: 119 QRS: 31 QRSD: 99 T: 184 QT: 356 QTc: 451 Interpretive Statements Sinus tachycardia Atrial premature complexes Abnormal T, consider ischemia, diffuse leads Compared to ECG 08/06/2024 17:39:49 T-wave abnormality now present Possible ischemia now present Sinus rhythm no longer present Electronically Signed On 08-12-2024 12:22:32 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
[2024-08-11 23:53] LABS: BASOPHILS # (AUTO) 0.02 K/uL (0.00-0.20); BASOPHILS % (AUTO) 0.1 % (0.0-5.0); EOSINOPHILS # (AUTO) 0.02 K/uL (0.00-0.70); EOSINOPHILS % (AUTO) 0.1 % (0.0-8.0); HEMATOCRIT 45.2 % (42-54); IMMATURE GRANULOCYTE ABSOLUTE 0.06 K/uL (0-1); LYMPHOCYTES # (AUTO) 0.3 K/uL (1.0-4.8); LYMPHOCYTES % (AUTO) 1.9 % (21.0-51.0); MEAN CORPUSCULAR HEMOGLOBIN 30.4 pg (27.0-33.0); MEAN CORPUSCULAR HGB CONC 29.6 g/dL (32.0-36.0); MEAN CORPUSCULAR VOLUME 102.5 fL (79-99); MONOCYTES # (AUTO) 0.7 K/uL (0.1-1.0); MONOCYTES % (AUTO) 4.7 % (3.0-13.0); NEUTROPHILS % (AUTO) 92.8 % (40.0-77.0); PLATELET COUNT (AUTO) 122 K/uL (130-400); RED BLOOD CELL COUNT(AUTO) 4.41 MIL/uL (4.50-6.20); RED CELL DISTRIBUTION WIDTH 12.8 % (11.0-15.5); WHITE BLOOD COUNT (AUTO) 15.1 K/uL (4.8-10.8)
[2024-08-11] MEDS: Solu-medROL 125MG VIAL ONE (23:56)
[2024-08-12] VITALS (93 sets, daily range): BP systolic 88–146; BP diastolic 45–72; PULSE 54–113; RESP 23–66; TEMP 97.8–99.4; O2SAT 91–99
[2024-08-12] MEDS: Solu-medROL 125MG VIAL IVP ONE (00:03)
[2024-08-12 00:08] LABS: CREATININE 0.6 mg/dL (0.5-1.3); POTASSIUM 4.3 mmol/L (3.5-5.1)
[2024-08-12 00:16] LABS: SARS-CoV-2, RNA, NAAT NEGATIVE SARS CoV-2 (NEGATIVE)
[2024-08-12 00:20] LABS: INFLUENZA TYPE A Negative For Type A (NEGATIVE); INFLUENZA TYPE B Negative For Type B (NEGATIVE)
[2024-08-12 00:20] LABS: ABG BASE EXCESS 12.5 mmol/L (-2.0-3.0); ABG HCO3 47.5 mmol/L (21.0-28.0); ABG OXYGEN SATURATION 90.6 % (94.0-98.0); ABG PCO2 139 mmHg (35-48); ABG PH 7.153 (7.350-7.450); CARBON MONOXIDE 1.5 % (0.5-1.5); DEVICE COMMENT N.C 4; HHb 9.2; VENT MODE, BG RN Z (ROOM AIR)
[2024-08-12] MEDS: IpraTROPium/alBUTERol SULFATE 3 ML SOLUTION IH ONE ×2 (00:23→01:27)
[2024-08-12] MEDS: cefTRIAXone 1G VIAL IVPB ONE (00:39)
[2024-08-12] MEDS: diazePAM 5 MG/ML 2 ML SYG IVP ONE (00:53)
[2024-08-12] MEDS: MAGNESIUM 2GM PREMIX 50ML 50 ML IV SCH (00:56)
[2024-08-12] MEDS ORDERED: MAGNESIUM 2GM PREMIX 50ML 50 ML IV SCH (01:00)
[2024-08-12 01:23] LABS: ABG BASE EXCESS 13.2 mmol/L (-2.0-3.0); ABG HCO3 48.7 mmol/L (21.0-28.0); ABG OXYGEN SATURATION 92.5 % (94.0-98.0); ABG PCO2 144 mmHg (35-48); ABG PH 7.146 (7.350-7.450); CARBON MONOXIDE 1.4 % (0.5-1.5); DEVICE COMMENT ST 20-10; HHb 7.4; PO2, ARTERIAL BG 73.3 mmHg (83.0-108.0)
[2024-08-12] MEDS: ketaMINE 50MG/ML SYRINGE 50 MG/ML DISP.SYRIN ONE (01:30)
[2024-08-12] MEDS: ketaMINE 50MG/ML SYRINGE 50 MG/ML DISP.SYRIN IV ONE (01:43)
[2024-08-12] MEDS: rocuRONium bROMide 10MG/1ML 5ML VL IV ONE (01:44)
[2024-08-12] MEDS: proPOFol 1000 MG/100 ML 100 ML IV ONE (01:48)
--- NOTE | 2024-08-12 01:50 | NUR ---
INTUBATION NOTED 0143 100MG OF KETAMINE GIVEN IVP ORDERED BY ED MD 0144 50 MG OF ROCURONIUM GIVEN IVP ORDERED BY ED MD 0145 PATIENT INTUBATED AT THIS TIME; 7.5 ETT@25CM AT THE LIP 16FR OG TUBE INSERTED
--- NOTE | 2024-08-12 01:53 | ERN ---
ED Note History of Present Illness Stated Complaint: SHORTNESS OF BREATH Chief Complaint: Shortness of Breath Time Seen by MD: 23:41 Time Seen by Midlevel: 23:41 Dictation: The patient is a 59-year-old male with a history of COPD on chronic o2, emphyse ma, asthma, everyday smoker, diabetes and hypertension who presents to the emergency department with worsening shortness of breath onset 2 days ago. Patient reports occasional productive cough. Denies any fevers.Denies chest pain. Patient reports he was just discharged two days ago. Allergies: Coded Allergies: Iodinated Contrast Media (Unverified Allergy, Severe, SHORTNESS OF BREATH, 02/06/21) Home Meds Active Scripts Methylprednisolone (Medrol) 4 Mg Tab.ds.pk, 4 MG PO AD, #1 UNIT Prov:[facility] LEAD CONSULTANT 03/14/24 Levofloxacin (Levofloxacin) 500 Mg Tablet, 500 MG PO DAILY for 10 Days, #10 TAB Prov:[facility] LEAD CONSULTANT 03/14/24 Prednisone (Deltasone/Orasone [Bulk]) 20 Mg Tab, 40 MG PO DAILY, #5 TAB 0 Refills Prov:ESDRAS RUSSELL SENIOR STRATEGY ANALYST 11/01/23 Reported Medications Fluticasone/Umeclidin/Vilanter (Trelegy Ellipta 100-62.5-25) 100-62.5 Blst.w.dev, 1 PUFF IH DAILY 12/25/23 Aspirin (Aspirin EC) 81 Mg Tablet.dr, 1 TAB PO DAILY 12/25/23 Losartan Potassium (Losartan Potassium) 25 Mg Tablet, 1 TAB PO DAILY 12/25/23 Dapagliflozin Propanediol (Farxiga) 10 Mg Tablet, 1 TAB PO DAILY 12/25/23 Potassium Citrate (Potassium) 99 Mg Capsule, 99 MG PO DAILY, CAP 08/29/22 Cholecalciferol (Vitamin D3) (Vitamin D3) 50 Mcg Tablet, 50 MCG PO DAILY, TAB 08/26/22 Nabumetone (Nabumetone) 500 Mg Tablet, 1 TAB PO QDP 08/26/22 Omeprazole (Omeprazole) 40 Mg Capsule.dr, 1 CAP PO DAILY for acid reflux 08/26/22 Atorvastatin Calcium (Atorvastatin Calcium) 10 Mg Tablet, 1 TAB PO QDP 08/26/22 Theophylline Anhydrous (Theophylline) 400 Mg Tablet.er, 1 TAB PO HS 08/26/22 Furosemide (Furosemide) 40 Mg Tablet, 1 TAB PO QDP 08/26/22 Diltiazem HCl (Diltiazem ER) 120 Mg Cap.er.12h, 120 MG PO DAILY, CAPSULE. 09/15/21 Montelukast Sodium (Montelukast Sodium) 10 Mg Tablet, 10 MG PO DAILY, TAB 09/15/21 Sacubitril/Valsartan (Entresto 24 mg-26 mg Tablet) 1 Each Tablet, 1 EACH PO BID, TAB 09/15/21 Past Medical History Past Medical History: Asthma, COPD, Hypertension, Hypothyroid Additional Past Medical Hx: EMPHESYMA Surgical History: Other Surgical History Other: RT CHEST TUBE Family History: DM, HTN Social History: Smokers, Drugs, Lives with family RN Note Reviewed/Agreed w/PFSH: Yes Review of System Dictation Constitutional: Negative for fever,chills, and weight loss Eyes: Negative for injury, pain,redness, and discharge ENT: Negative for injury,pain or swelling Cardiovascular: Negative for chest pain, palpitations, and edema Respiratory: Positive for shortness of breath, cough, wheezing Abdomen/GI: Negative for abdominal pain, nausea, vomiting, diarrhea, and constipation Back: Negative for injury and pain : Negative for injury, bleeding and discharge MS/Extremity: Negative for injury and deformity Skin: Negative for rash, and discoloration Neuro: Negative for headache, weakness, numbness, tingling, and seizure Psych: Negative for suicide ideation, homicidal ideation, and hallucinations Initial Vital Sign VS Vital Signs Date Time Temp Pulse Resp B/P (MAP) Pulse Ox O2 Delivery O2 Flow Rate FiO2 08/11/24 23:41 101 20 130/46 94 Nasal Cannula 2.0 08/11/24 23:48 98.2 100 Physical Exam Dictation Vital Signs reviewed General Appearance: drowsy, oriented x 3, distress, well developed, nourished. Head and Face: non-traumatic. Eyes: PERRL, pink conjunctivas, eyelid no trauma, anterior chamber with arcus senilis. Ears: Pinnas intact and no signs of trauma or erythema ear canals clear and no discharge TM no erythema Nose: No discharge, no bleeding. Oropharynx: Mouth normal, tongue pink. pharynx clear,no erythema, tonsils no exudates, no abscesses noted, mucous membrane moist Neck: Supple, non-tender, no thyromegaly, no masses, no JVD, no bruits Breast:Deferred Chest:No tenderness, no crepitus, no paradoxical movement, no retractions Lungs:Clear, well-ventilated, symmetric, no rales, + wheezing, no rhonchi, no stridor, good breath sounds bilaterally Heart: Regular rate, regular rhythm, no murmur, no gallops Vascular: no peripheral edema, Abdomen: Soft, positive bowel sounds, nondistended, no guarding, nontender, no rebound, no masses no hepatomegaly, no splenomegaly, no Horne's sign, no hernias. Rectal: Deferred Genital: Deferred Neurological: Normal speech, motor function intact, sensory function intact Musculoskeletal: Neck nontender, full range of motion, back nontender, full rang e of motion, Extremities: nontender, full range of motion Skin: Color pink, dry, no turgor, no rash, no lacerations, no abrasions, no contusions. Lymphatic: Deferred Results (Laboratory/Radiology) Laboratory/Radiology Laboratory Tests Test 08/11/24 23:43 08/11/24 23:44 08/12/24 00:18 08/12/24 00:26 White Blood Count 15.1 K/uL (4.8-10.8) H Red Blood Count 4.41 MIL/uL (4.50-6.20) L Hemoglobin 13.4 g/dL (14.0-18.0) L Hematocrit 45.2 % (42-54) Mean Corpuscular Volume 102.5 fL (79-99) H Mean Corpuscular Hemoglobin 30.4 pg (27.0-33.0) Mean Corpuscular Hemoglobin Concent 29.6 g/dL (32.0-36.0) L Red Cell Distribution Width 12.8 % (11.0-15.5) Platelet Count 122 K/uL (130-400) L Mean Platelet Volume 9.8 fL (7.5-10.5) Immature Granulocyte % (Auto) 0.4 % (0-1) Neutrophils (%) (Auto) 92.8 % (40.0-77.0) H Lymphocytes (%) (Auto) 1.9 % (21.0-51.0) L Monocytes (%) (Auto) 4.7 % (3.0-13.0) Eosinophils (%) (Auto) 0.1 % (0.0-8.0) Basophils (%) (Auto) 0.1 % (0.0-5.0) Neutrophils # (Auto) 14.0 K/uL (1.8-7.7) H Lymphocytes # (Auto) 0.3 K/uL (1.0-4.8) L Monocytes # (Auto) 0.7 K/uL (0.1-1.0) Eosinophils # (Auto) 0.02 K/uL (0.00-0.70) Basophils # (Auto) 0.02 K/uL (0.00-0.20) Absolute Immature Granulocyte (auto 0.06 K/uL (0-1) Nucleated Red Blood Cells 0.0 % (0.0-0.19) Sodium Level 141 mmol/L (136-145) Potassium Level 4.3 mmol/L (3.5-5.1) Chloride Level 98 mmol/L (101-111) L Carbon Dioxide Level 44 mmol/L (21-32) *H Blood Urea Nitrogen 15 mg/dL (7-18) Creatinine 0.6 mg/dL (0.5-1.3) Glomerular Filtration Rate Calc 110 mL/min (>90) Random Glucose 134 mg/dL (70-105) H Total Calcium 8.2 mg/dL (8.5-10.1) L Troponin I High Sensitivity 8 ng/L (4-75) B-Type Natriuretic Peptide 57 pg/mL (0-100) Influenza Type A Antigen Negative For Type A Influenza Type B Antigen Negative For Type B SARS-CoV-2, RNA, NAAT NEGATIVE SARS CoV-2 Blood Gas Specimen Type Arterial Arterial Blood pH 7.153 (7.350-7.450) Arterial Blood Partial Pressure CO2 139 mmHg (35-48) *H Arterial Blood Partial Pressure O2 69.0 mmHg (83.0-108.0) L Arterial Blood HCO3 47.5 mmol/L (21.0-28.0) H Arterial Blood Oxygen Saturation 90.6 % (94.0-98.0) L Arterial Blood Base Excess 12.5 mmol/L (-2.0-3.0) H Hemoglobin (Blood Gas) 14.6 g/dL (13.5-17.5) Sodium (Blood Gas) 138 MMOL/L (136-145) Bedside Potassium (Blood Gas) 4.2 MMOL/L (3.4-4.5) Bedside Chloride (Blood Gas) 89 MMOL/L (98-107) *L Bedside Glucose (Blood Gas) 141 MG/DL (65-95) H Bedside Ionized Calcium (Blood Gas) 1.15 MMOL/L (1.15-1.33) Bedside Lactic Acid (Blood Gas) 0.66 MMOL/L (0.36-0.75) Blood Gas Temperature 37.0 CELSIUS (35.5-37.0) Blood Gas Flow-by 4.00 L/min (0.00-15.00) Blood Gas Vent Mode RN Z (ROOM AIR) FiO2 36.0 % Blood Gas Specimen Comment NSunitaC 4 Lactic Acid Level 1.4 mmol/L (0.8-2.5) Magnesium Level 2.10 mg/dL (1.80-2.40) Test 08/12/24 01:21 Blood Gas Specimen Type Arterial Arterial Blood pH 7.146 (7.350-7.450) Arterial Blood Partial Pressure CO2 144 mmHg (35-48) *H Arterial Blood Partial Pressure O2 73.3 mmHg (83.0-108.0) L Arterial Blood HCO3 48.7 mmol/L (21.0-28.0) H Arterial Blood Oxygen Saturation 92.5 % (94.0-98.0) L Arterial Blood Base Excess 13.2 mmol/L (-2.0-3.0) H Hemoglobin (Blood Gas) 14.8 g/dL (13.5-17.5) Sodium (Blood Gas) 137 MMOL/L (136-145) Bedside Potassium (Blood Gas) 4.2 MMOL/L (3.4-4.5) Bedside Chloride (Blood Gas) 88 MMOL/L (98-107) *L Bedside Glucose (Blood Gas) 163 MG/DL (65-95) H Bedside Ionized Calcium (Blood Gas) 1.17 MMOL/L (1.15-1.33) Bedside Lactic Acid (Blood Gas) 0.59 MMOL/L (0.36-0.75) Blood Gas Temperature 37.0 CELSIUS (35.5-37.0) Blood Gas Respiration Rate 24.0 min. Blood Gas Vent Mode MD CHAN (ROOM AIR) FiO2 50.0 % Blood Gas Specimen Comment ST 20-10 Labs Reviewed?: Yes EKG: (+) rhythm (Sinus tachycardia) EKG Comment: EKG 09/03/2024 2349 ventricular rate of 101, sinus tachycardia, regular rate and rhythm, diffuse T-wave abnormalities. No STEMI ED Course ED Course Orders Procedure Category Date Status Time Cbc With Differential LAB 08/11/24 Complete 23:46 Basic Metabolic Panel LAB 08/11/24 Complete 23:46 12 Lead Ekg Tracing- EKG 08/11/24 Complete Technical 23:46 Chest 1vw RAD 08/11/24 Taken 23:46 Troponin I High LAB 08/11/24 Complete Sensitivity 23:46 Covid Rna Naat LAB 08/11/24 Complete 23:46 Influenza Type A & B, LAB 08/11/24 Complete Rapid 23:46 B-Type Natriuretic LAB 08/11/24 Complete Peptide 23:48 Arterial Blood Gas RT 08/11/24 Transmitted 23:50 Ipratropium/Albuterol PHA 08/12/24 Complete Neb (Duoneb) 00:00 Methylprednisolone PHA 08/12/24 Complete Succ 125mg (Solu-Medr 00:00 Methylprednisolone PHA 08/11/24 Complete Succ 125mg (Solu-Medr 23:54 Arterial Blood Gas LAB 08/12/24 Complete Arterial + 00:18 Blood Cult DORA 08/12/24 In Process 00:21 Lactic Acid LAB 08/12/24 Complete 00:21 Ceftriaxone 1g Vial PHA 08/12/24 Complete (Rocephine 1g Inj) 00:30 Bipap Settings RT 08/12/24 Transmitted 00:21 Arterial Blood Gas RT 08/12/24 Transmitted 01:30 Ipratropium/Albuterol PHA 08/12/24 Complete Neb (Duoneb) 01:00 Magnesium 2gm Premix PHA 08/12/24 In Process 50ml (Magnesium 2gm 01:00 Magnesium LAB 08/12/24 Complete 00:45 Magnesium 2gm Premix PHA 08/12/24 In Process 50ml (Magnesium 2gm 01:00 Diazepam 5 Mg/Ml 2 Ml PHA 08/12/24 Complete Syg (Valium 5 Mg/M 01:00 Arterial Blood Gas LAB 08/12/24 Complete Arterial + 01:21 Azithromycin 500mg+Ns PHA 08/12/24 In Process 250ml (Azithromyci 01:30 Ketamine 50mg/Ml PHA 08/12/24 Complete Syringe (Ketamine 01:30 Chest 1vw RAD 08/12/24 Taken 01:37 Propofol 1000 Mg/100 PHA 08/12/24 In Process Ml (Diprivan 1000mg 02:00 Propofol 1000 Mg/100 PHA 08/12/24 Complete Ml (Diprivan 1000mg 01:48 0.9%Nacl 1000ml (Ns PHA 08/12/24 In Process 1000ml) 02:30 Arterial Blood Gas RT 08/12/24 Transmitted 02:50 Ketamine 50mg/Ml PHA 08/12/24 Transmitted Syringe (Ketamine 02:30 Pharmacy PHA 08/12/24 Transmitted Communication 02:30 Nurse Driven Michele DIGNA 08/12/24 Transmitted Removal Pro 02:08 Admit Orders ADM 08/12/24 Transmitted 02:12 Edm Admit Bridge Order ADM 08/12/24 Transmitted 02:12 Current Medications Medications (Trade) Dose Ordered Sig/Nicolasa Route PRN Reason Start Time Stop Time Status Last Admin Dose Admin Albuterol (DUOneb) 1 UDVIAL ONCE ONCE IH 08/12/24 00:00 08/12/24 00:01 DC 08/12/24 00:23 Albuterol (DUOneb) 1 UDVIAL ONCE ONCE IH 08/12/24 01:00 08/12/24 01:01 DC 08/12/24 01:27 Azithromycin 250 ml @ 125 mls/hr ONCE ONCE IV 08/12/24 01:30 08/12/24 03:29 Ceftriaxone Sodium (ROCEphine 1G INJ) 1 gm ONCE ONCE IVPB 08/12/24 00:30 08/12/24 00:31 DC 08/12/24 00:39 Diazepam (VALium 5 MG/ML 2 ML SYG) 5 mg ONCE ONCE IVP 08/12/24 01:00 08/12/24 01:01 DC 08/12/24 00:53 Ketamine HCl (ketaMINE 50MG/ ML SYRINGE) 50 mg STK-MED ONCE .ROUTE 08/12/24 01:30 08/12/24 01:31 DC Magnesium Sulfate 50 ml @ 0 mls/hr PROTOCOL IV 08/12/24 01:00 09/11/24 00:59 08/12/24 00:56 Magnesium Sulfate 50 ml @ 0 mls/hr PROTOCOL IV 08/12/24 01:00 09/11/24 00:59 Methylprednisolone Sodium Succinate (Solu-medROL 125MG) 125 mg ONCE ONCE IVP 08/12/24 00:00 08/12/24 00:01 DC 08/12/24 00:03 Methylprednisolone Sodium Succinate (Solu-medROL 125MG) 125 mg STK-MED ONCE .ROUTE 08/11/24 23:54 08/11/24 23:55 DC Propofol 100 ml @ As Directed STK-MED ONCE IV 08/12/24 01:48 08/12/24 01:48 DC Propofol (DIPRivan 1000MG/ 100ML) 1,000 mg PROTOCOL PRN IV SEDATION 08/12/24 02:00 09/11/24 01:59 Sodium Chloride 2,414 ml @ 804.666 mls/hr ONCE ONCE IV 08/12/24 02:30 08/12/24 05:29 Vital Signs Date Time Temp Pulse Resp B/P (MAP) Pulse Ox O2 Delivery O2 Flow Rate FiO2 08/12/24 02:04 113 100 08/12/24 01:27 103 23 08/12/24 01:26 99 34 156/79 94 Bi-PAP+ 60 08/12/24 00:30 103 36 50 08/12/24 00:24 101 23 08/12/24 00:04 102 38 165/69 97 Nasal Cannula* 4 36 08/11/24 23:48 98.2 102 36 140/61 100 Non-Rebreather+ 15 100 08/11/24 23:41 101 20 130/46 94 Nasal Cannula 2.0 Medical Decision Making MDM MDM: The patient is a 59-year-old male with a history of COPD on chronic o2, emphysema, asthma, everyday smoker, diabetes and hypertension who presents to the emergency department with worsening shortness of breath onset 2 days ago. Patient reports occasional productive cough. Denies any fevers.Denies chest pain. Patient reports he was just discharged two days ago. CBC showed leukocytosis, mild anemia, chemistry showed mild hypochloremia, gluc ose of 134, normal renal function, negative troponin, negative lactic acid, ABG showed critical CO2 and patient was placed in BiPAP. Patient did not improved in worsened patient intubated by Dr. Chan. Differential diagnosis: COPD exacerbation, asthma exacerbation, pneumonia, pneumothorax, electrolyte imbalance Comorbidities: COPD, emphysema, asthma, hypertension, diabetes Tests considered and not ordered secondary to shared decision making include: none Previous outside records reviewed: none Risk of complication and/or morbidity or mortality of patient management: The patient meets criteria for admission. Need for emergency major/minor surgery: No There are no social concerns with this patient. I independently interpreted the tests I ordered (labs, urinalysis, etc.). I discussed the case with the hospitalist for admission. Rancho who accepts admission. I discussed the case with the following specialists: none. Historian: pateint. I independently interpreted imaging studies and EKGs that I ordered (US, CT, XR, EKG, etc.). External chart review: none. Medical management and examination interpretation discussions were had by me with other qualified healthcare professionals as indicated for the patient's care. Procedure Procedure Dictation: Time and Date Performed: 08/12/2024 0145 INDICATION: Respiratory Failure Informed consent was obtained. Pre-procedure time out was obtained. Size of ET Tube used: 7.5 Medications used: ketamine, rocuronium Following pre-oxygenation we performed a rapid sequence orotracheal intubation using a GlideScope Mac blade. Placement was confirmed by Auscultation, ETCO2 monitor and a CXR. No complications. Aseptic technique was used during the entire procedure. Intubation performed by Dr. Chan Intubation Method: orotracheal Post Intubation Xray: Yes Progress Critical Care Note Critical Time: 60 minutes Comment(s) Total critical care time was 60 minutes. Excluding time for procedures. Management of critically ill patient with concern for acute decompensation. Management included interpretation of laboratory values and imaging, hemodynamics, time for consultation with consultants and admitting physician. DX & DISP Disposition: Inpatient Decision to Admit Date: Aug 12, 2024 Decision to Admit Time: 02:11 Departure Impression: Primary Impression: Acute respiratory failure Additional Impressions: COPD exacerbation, Hypercapnemia, Supplemental oxygen dependent, Obesity, Leukocytosis, Thrombocytopenia, Hypochloremia, Sepsis Condition: Stable Referrals: JUANA ALLEN (PCP) I have examined patient, & reviewed all documents, & agreed W/ the Diagnosis, and Plan ATTESTATION BY PHYSICIAN I PERFORMED THE SUBSTANTIVE PORTION OF THE VISIT. I HAVE REVIEWED AND PERSONALLY MADE AND APPROVED THE MANAGEMENT PLAN THAT IS DOCUMENTED IN THE NOTE BY MYSELF FOR THE A PP. I ACKNOWLEDGED FOR RESPONSIBILITY FOR THE PATIENT'S MANAGEMENT PLAN. MARY VELEZ Aug 12, 2024 01:53
--- NOTE | 2024-08-12 01:55 | NUR ---
ETT READJUSTED ORDERED BY ED TO 22@ LIP
[2024-08-12] MEDS ORDERED: RENAL DOSE IV STA (02:10)
[2024-08-12] MEDS ORDERED: acetaMINOPHEN 650 MG SUPPOSITORY RC PRN (02:30)
[2024-08-12] MEDS ORDERED: LACTULOSE 20 GM/30 ML UDCUP PO PRN (02:30)
[2024-08-12] MEDS ORDERED: VANCOMYCIN PROTOCOL PER PHARMACY IV SCH (02:30)
[2024-08-12] MEDS ORDERED: DEXTROSE 50%-WATER 50 ML DISP.SYRIN IV PRN (02:30)
[2024-08-12] MEDS ORDERED: MAGNESIUM 2GM PREMIX 50ML 50 ML IV PRN (02:30)
[2024-08-12] MEDS ORDERED: GLUCAGON 1MG KIT 1 MG ML IM PRN (02:30)
[2024-08-12] MEDS ORDERED: PHARMACY COMMUNICATION MISC SCH ×4 (02:30→06:00)
[2024-08-12] MEDS ORDERED: ALBUTEROL 0.083% 2.5 MG/3 ML INH IH PRN (02:30)
[2024-08-12] MEDS ORDERED: FENTanyl CITRate PF 0.05 MG/ML 1,000 MCG in 0.9%NACL 100ML 100 ML IV PRN (02:30)
[2024-08-12] MEDS ORDERED: VASOpressin 20 UNITS/ML 1ML Vi 20 UNITS in 0.9%NACL 100ML 99 ML IV PRN (02:30)
--- NOTE | 2024-08-12 02:33 | NUR ---
VENT SETTINGS: TV 450 RATE 22 FI02 100% PEEP 5 PEAK FLOW 55
[2024-08-12] MEDS: NOREPINEPHRIN 4MG/NS 250ML 250 ML IV PRN (02:42)
[2024-08-12 02:48] LABS: ABG BASE EXCESS 6.4 mmol/L (-2.0-3.0); ABG HCO3 35.8 mmol/L (21.0-28.0); ABG OXYGEN SATURATION 98.2 % (94.0-98.0); ABG PCO2 76 mmHg (35-48); ABG PH 7.292 (7.350-7.450); CARBON MONOXIDE 1.2 % (0.5-1.5); HHb 1.8; PO2, ARTERIAL BG 105.9 mmHg (83.0-108.0); VENT MODE, BG AC (ROOM AIR)
--- NOTE | 2024-08-12 02:49 | HP ---
[facility] HISTORY & PHYSICAL Date Patient Seen: Aug 12, 2024 Time of Visit: 0345 Supervising Physician: [Dr. Joel Soto] Primary Care Physician: [Dr. Zafar Harris ] Outpatient Specialists: [ ] Inpatient Consults: [ ] PROBLEM LIST: Acute on chronic hypoxic hypercapnic respiratory failure requiring vent support- POA Sepsis secondary to suspected community-acquired pneumonia-POA COPD/asthma/emphysema exacerbation-POA Metabolic acidosis-POA Suspected septic shock requiring pressor support-POA Hypochloremia-POA Primary hypertension Diabetes mellitus HLD Chronic nicotine disorder Obstructive sleep apnea Polysubstance abuse with tobacco, cocaine and alcohol Morbid obese, BMI 39.9 Plan -admit to ICU -titrate oxygen to keep saturation above 92%: Current vent setting VT 450, rate 26, FiO2 80%, peep of 7 -reinforce VAP prevention protocol -daily SBT as tolerated -IV fluid resuscitation per sepsis protocol -start on IV vancomycin and cefepime -continue to monitor WBC trend, fever curve, SIRS/Mews score -pending blood culture -DuoNeb q.6 hours scheduled and p.r.n. for SOB/wheezing -IV steroid therapy -continue critical care management -sedation vacation daily -Q 2 hour turning and repositioning to prevent HAPI -smoking cessation education once fully awake HPI: [Patient is unable to participate on the HPI due to intubated and sedated. Per ED notes:"The patient is a 59-year-old male with a history of COPD on chronic o2, emphysema, asthma, everyday smoker, diabetes and hypertension who presents to the emergency department with worsening shortness of breath onset 2 days ago. Patient reports occasional productive cough. Denies any fevers.Denies chest pain. Patient reports he was just discharged two days ago." According to the girlfriend at bedside, patient was doing well in the morning and in the afternoon until about 6:00 p.m. prior to admission when he started getting restless and having a lot of coughing and phlegm. Despite BiPAP treatment at the ED, he was not able to tolerate and blood gas continues to decline leading to intubation. At the time of my admission, patient is on propofol and Versed. Current vent setting was vT: 450, FiO2 80%, rate of 26, PEEP 7. He is still smoking up to this point. Physical assessment reveals diminished lung sounds across lung campa. Goals of care were discussed with the patient's girlfriend verbalizes understanding and agreement. ] PAST MEDICAL HX: see above PAST SURGICAL HX: noncontributory SOCIAL HISTORY: No tobacco, ETOH, or illicit drug use Coded Allergies: Iodinated Contrast Media (Unverified Allergy, Severe, SHORTNESS OF BREATH, 02/06/21) REVIEW OF SYSTEMS: 12 point ROS reviewed with patient. Pertinent positives mentioned above. Otherwise negative. PHYSICAL EXAM: GENERAL: Intubated and sedated HEENT: EOMI, Sclera non icteric, moist mucosa NECK: Supple, no JVD, trachea midline LUNGS: Diminished breath sounds bilaterally. No wheezes HEART: Regular rate and rhythm. Normal S1 and S2, without murmurs ABD: Abdomen soft, nontender. Bowel sounds present EXT: No clubbing cyanosis or edema NEURO: Unable to assess due to intubation and sedation Vital Signs (last 8hr) Date Time Temp Pulse Resp B/P (MAP) Pulse Ox O2 Delivery O2 Flow Rate FiO2 08/12/24 02:37 98.4 84 22 110/74 99 Ventilator+ 100 08/12/24 02:04 113 100 08/12/24 01:27 103 23 08/12/24 01:26 99 34 156/79 94 Bi-PAP+ 60 08/12/24 00:30 103 36 50 08/12/24 00:24 101 23 08/12/24 00:04 102 38 165/69 97 Nasal Cannula* 4 36 08/11/24 23:48 98.2 102 36 140/61 100 Non-Rebreather+ 15 100 08/11/24 23:41 101 20 130/46 94 Nasal Cannula 2.0 LABS: Hematology Labs: Test 08/11/24 23:43 Range/Units White Blood Count 15.1 H 4.8-10.8 K/uL Red Blood Count 4.41 L 4.50-6.20 MIL/uL Hemoglobin 13.4 L 14.0-18.0 g/dL Hematocrit 45.2 42-54 % Mean Corpuscular Volume 102.5 H 79-99 fL Mean Corpuscular Hemoglobin 30.4 27.0-33.0 pg Mean Corpuscular Hemoglobin Concent 29.6 L 32.0-36.0 g/dL Red Cell Distribution Width 12.8 11.0-15.5 % Platelet Count 122 L 130-400 K/uL Mean Platelet Volume 9.8 7.5-10.5 fL Immature Granulocyte % (Auto) 0.4 0-1 % Neutrophils (%) (Auto) 92.8 H 40.0-77.0 % Lymphocytes (%) (Auto) 1.9 L 21.0-51.0 % Monocytes (%) (Auto) 4.7 3.0-13.0 % Eosinophils (%) (Auto) 0.1 0.0-8.0 % Basophils (%) (Auto) 0.1 0.0-5.0 % Neutrophils # (Auto) 14.0 H 1.8-7.7 K/uL Lymphocytes # (Auto) 0.3 L 1.0-4.8 K/uL Monocytes # (Auto) 0.7 0.1-1.0 K/uL Eosinophils # (Auto) 0.02 0.00-0.70 K/uL Basophils # (Auto) 0.02 0.00-0.20 K/uL Absolute Immature Granulocyte (auto 0.06 0-1 K/uL Nucleated Red Blood Cells 0.0 0.0-0.19 % Chemistry Labs: Test 08/12/24 00:26 08/11/24 23:43 Range/Units Lactic Acid Level 1.4 0.8-2.5 mmol/L Magnesium Level 2.10 1.80-2.40 mg/dL Sodium Level 141 136-145 mmol/L Potassium Level 4.3 3.5-5.1 mmol/L Chloride Level 98 L 101-111 mmol/L Carbon Dioxide Level 44 *H 21-32 mmol/L Blood Urea Nitrogen 15 7-18 mg/dL Creatinine 0.6 0.5-1.3 mg/dL Glomerular Filtration Rate Calc 110 >90 mL/min Random Glucose 134 H 70-105 mg/dL Total Calcium 8.2 L 8.5-10.1 mg/dL Troponin I High Sensitivity 8 4-75 ng/L B-Type Natriuretic Peptide 57 0-100 pg/mL DIAGNOSTICS / RADIOLOGY RESULTS: [ ] PLAN NEURO: Minimize central acting medications as possible. Maintain fall precautions, adequate lighting during the day PULMONARY: Supplemental 02 as needed. Maintain aspiration precautions at all times CARDIOVASCULAR: Follow hemodynamics. Vital signs per facility protocol GI & NUTRITION: Continue with nutritional support. Continue stool softeners and laxatives as needed. KIDNEYS & ELECTROLYTES: Strict monitoring of intake, output and overall fluid balance. Avoid nephrotoxic medications to the extent possible. Medications to be dosed according to renal function. Monitor electrolytes and replace as needed ENDOCRINE: Maintain blood glucose between 100-180 at all times. Hypoglycemia protocol in place INFECTIOUS DISEASE: Trend temperature, WBC and procalcitonin level Follow cultures, deescalate antibiotics as soon as possible. Panculture if new onset fever ONCOLOGY/HEMATOLOGY/COAGULATION: Monitor for s/s of bleeding Monitor hemoglobin, coagulation studies as needed SKIN: Pressure ulcer prevention per facility protocol Specialty mattress ORTHO/REHAB: Continue PT/OT Prophylaxis: Continue GI and DVT prophylaxis Code Status: Full Resuscitation Disposition: TBD Other: Total patient care time: 35 minutes RENNY FU Aug 12, 2024 02:49
[2024-08-12] MEDS: MIDAZOLAM 50MG-0.9% NS 50ML 50 ML IV SCH (02:56)
[2024-08-12] MEDS ORDERED: FENTanyl 1000MCG+NS 100ML 100 ML IV SCH (03:00)
[2024-08-12] MEDS ORDERED: MIDAZOLAM 100MG-0.9% NS 100ML 100ML BAG IV PRN (03:00)
[2024-08-12] MEDS ORDERED: MIDAZOLAM HCL 50 MG in 0.9%NACL 50ML 50 ML IV SCH (03:00)
[2024-08-12] MEDS: [UNRECOGNIZED DRUG - OTHER] IV ONE (03:03)
[2024-08-12] MEDS: AZITHROMYCIN 500MG+NS 250ML 250 ML IV ONE (03:03)
[2024-08-12] MEDS: ceFEPime HCL 2 GM VIAL IVPB SCH (03:03)
[2024-08-12] MEDS: proPOFol 1000 MG/100 ML IV PRN (03:04)
--- NOTE | 2024-08-12 03:30 | NUR ---
REPORT GIVEN TO STEWART REYES
[2024-08-12 04:07] LABS: APPEARANCE,URINE CLEAR (CLEAR); BILIRUBIN,URINE NEGATIVE (NEGATIVE); COLOR,URINE LIGHT-YELLOW (YELLOW); GLUCOSE, URINE (UA) 300 mg/dL (NEGATIVE); KETONES,URINE NEGATIVE (NEGATIVE); LEUKOCYTE ESTERASE ,URINE NEGATIVE Leu/uL (NEGATIVE); NITRATE,URINE NEGATIVE (NEGATIVE); OCCULT BLOOD,URINE NEGATIVE (NEGATIVE); PROTEIN,URINE 30 mg/dL (NEGATIVE); UROBILINOGEN,URINE 0.2 mg/dL (0.2-1.0)
[2024-08-12 04:15] LABS: BASOPHILS # (AUTO) 0.02 K/uL (0.00-0.20); BASOPHILS % (AUTO) 0.1 % (0.0-5.0); EOSINOPHILS # (AUTO) 0.01 K/uL (0.00-0.70); EOSINOPHILS % (AUTO) 0.1 % (0.0-8.0); HEMATOCRIT 42.6 % (42-54); LYMPHOCYTES # (AUTO) 0.4 K/uL (1.0-4.8); LYMPHOCYTES % (AUTO) 2.3 % (21.0-51.0); MEAN CORPUSCULAR HEMOGLOBIN 29.8 pg (27.0-33.0); MEAN CORPUSCULAR VOLUME 99.1 fL (79-99); MONOCYTES # (AUTO) 0.7 K/uL (0.1-1.0); MONOCYTES % (AUTO) 4.2 % (3.0-13.0); NEUTROPHILS # (AUTO) 16.4 K/uL (1.8-7.7); NEUTROPHILS % (AUTO) 92.7 % (40.0-77.0); PLATELET COUNT (AUTO) 128 K/uL (130-400); RED CELL DISTRIBUTION WIDTH 12.8 % (11.0-15.5); WHITE BLOOD COUNT (AUTO) 17.7 K/uL (4.8-10.8)
[2024-08-12 04:17] LABS: ADD UA MICROSCOPIC YES
[2024-08-12 04:20] LABS: MUCUS,URINE RARE LPF (None Seen); RBC,URINE 0-1 /HPF (0-1); SQUAMOUS EPITHELIAL CELL,UR RARE /HPF (0-2); WBC,URINE 0-1 /HPF (0-1)
[2024-08-12] MEDS: VANCOMYCIN 2GM/500 ML BAG 500 ML IV ONE (04:22)
[2024-08-12 04:29] LABS: INR <= 0.93 (0.85-1.15); PROTHROMBIN TIME 9.8 SEC (9.6-11.6)
[2024-08-12 04:38] LABS: CREATININE 0.7 mg/dL (0.5-1.3); MAGNESIUM 2.6 mg/dL (1.80-2.40); PHOSPHORUS 2.5 mg/dL (2.5-4.9); POTASSIUM 5.1 mmol/L (3.5-5.1); THYROID STIMULATING HORMONE 0.48 uIU/mL (0.36-3.74)
[2024-08-12 04:44] LABS: D-DIMER 515 ng/mL (0-500)
[2024-08-12] MEDS: Solu-medROL 40MG VIAL IVP SCH ×2 (05:36→17:29)
[2024-08-12] MEDS: INSULIN humuLIN R 100 UNIT/ML 3ML SQ SCH (05:36)
[2024-08-12 06:36] LABS: ABG BASE EXCESS 8.5 mmol/L (-2.0-3.0); ABG HCO3 35.3 mmol/L (21.0-28.0); ABG OXYGEN SATURATION 99.4 % (94.0-98.0); ABG PCO2 57 mmHg (35-48); ABG PH 7.409 (7.350-7.450); DEVICE COMMENT LR MARISSA; PO2, ARTERIAL BG 205.4 mmHg (83.0-108.0); VENT MODE, BG AC-VC (ROOM AIR)
[2024-08-12] MEDS: IpraTROPium/alBUTERol SULFATE 3 ML SOLUTION IH SCH (06:43)
[2024-08-12] MEDS: FENTanyl 2500MCG+NS 250ML 250 ML IV SCH (08:05)
[2024-08-12] MEDS: ENOXAPARIN SODIUM 40 MG/0.4 ML SYRINGE SQ SCH ×2 (08:05→09:00)
[2024-08-12] MEDS: CHLORHEXIDINE GLUCONATE 15 ML MOUTHWASH MM SCH (08:06)
--- NOTE | 2024-08-12 08:07 | PN ---
[facility] PROGRESS NOTE Date Patient Seen: Aug 12, 2024 Time of Visit: 08:07 Supervising Physician: Joel Soto MD Primary Care Physician: [Dr. Zafar Harris ] Outpatient Specialists: [ ] Inpatient Consults: [ ] PROBLEM LIST: Acute on chronic hypoxic hypercapnic respiratory failure requiring vent support- POA Sepsis secondary to suspected community-acquired pneumonia-POA COPD/asthma/emphysema exacerbation-POA Suspected septic shock requiring pressor support-POA Hypochloremia-POA Primary hypertension Diabetes mellitus HLD Chronic nicotine disorder Obstructive sleep apnea Polysubstance abuse with tobacco, cocaine and alcohol Fatty Liver Morbid obese, BMI 39.9 Plan -admit to ICU -titrate oxygen to keep saturation above 92%: Current vent setting VT 450, rate 26, FiO2 60%, Peep 5 -reinforce VAP prevention protocol -daily SBT as tolerated -IV fluid resuscitation per sepsis protocol -start on IV vancomycin and cefepime -continue to monitor WBC trend, fever curve, SIRS/Mews score -pending blood culture -DuoNeb q.6 hours scheduled and p.r.n. for SOB/wheezing -IV steroid therapy wean when possible - chest XR in am -continue critical care management -sedation vacation daily -Q 2 hour turning and repositioning to prevent HAPI -smoking cessation education once fully awake INTERVAL HISTORY: "Patient is unable to participate on the HPI due to intubated and sedated. Per ED notes:"The patient is a 59-year-old male with a history of COPD on chronic o2, emphysema, asthma, everyday smoker, diabetes and hypertension who presents to the emergency department with worsening shortness of breath onset 2 days ago. Patient reports occasional productive cough. Denies any fevers.Denies chest pain. Patient reports he was just discharged two days ago." According to the girlfriend at bedside, patient was doing well in the morning and in the afternoon until about 6:00 p.m. prior to admission when he started getting restless and having a lot of coughing and phlegm. Despite BiPAP treatment at the ED, he was not able to tolerate and blood gas continues to decline leading to intubation. " 08/12/23 AM rounds- patient is sedated with propofol and Versed drip, continues intubated. ABGs improving with a pH of 7.4 pCO2 of 57 PO2 of 205 and bicarb of 35. PF ratio 256. Ventilator settings adjusted to tidal volume of 450, respiratory rate of 26, 60% FiO2 and, peep down to 5. He was requiring minimal vasopressor support with Levophed at 0.04 micrograms/kilogram per minute, blood pressure 123/66 heart rate 58 respiratory rate of 26 O2 sat 98% with a FiO2 of 60%. Patient has Michele catheter with urine output of 350 mL this morning. patient is negative for influenza type a and B and COVID-19. WBCs 17.7 today H&H is similar to yesterday 12.8/42.6 with a platelet count that is 128 K slightly improving from yesterday which were 122 K. neutrophils 92.7 similar to yesterday. Chemistry BUN 18 creatinine 0.7 GFR of 105 kidneys are doing well glucose of 216 mg/dL we will adjust insulin total calcium 1.02 magnesium of 2.6. TSH is 0.48. On last chest x-ray approximately at 01:37 in the morning post intubation ET tube slightly above the aortic notch we will repeat chest x-ray at this time to evaluate placement on x-ray noted to have bilateral pulmonary infiltrates with pulmonary vascular congestion no pneumothorax noted. REVIEW OF SYSTEMS: Unable to perform due to patient intubated and sedated. PHYSICAL EXAM: GENERAL: Intubated and sedated HEENT: EOMI, Sclera non icteric, moist mucosa NECK: Supple, no JVD, trachea midline LUNGS: Diminished breath sounds bilaterally. No wheezes HEART: Regular rate and rhythm. Normal S1 and S2, without murmurs ABD: Abdomen obese firm, nontender. Bowel sounds present EXT: No clubbing cyanosis or edema NEURO: Unable to assess due to intubation and sedation Vital Signs (last 8hr) Date Time Temp Pulse Resp B/P (MAP) Pulse Ox O2 Delivery O2 Flow Rate FiO2 08/12/24 07:00 58 26 123/66 98 Ventilator 60 08/12/24 06:45 57 26 123/71 99 08/12/24 06:44 56 26 08/12/24 06:43 56 60 08/12/24 06:30 55 26 118/68 98 Ventilator 60 08/12/24 06:15 55 26 117/66 100 08/12/24 06:00 55 26 119/70 100 Ventilator 80 08/12/24 05:45 56 26 118/71 100 08/12/24 05:30 56 26 118/67 99 08/12/24 05:15 57 26 114/61 100 08/12/24 05:00 56 26 112/66 99 Ventilator 80 08/12/24 04:45 56 26 112/66 100 08/12/24 04:30 57 26 111/62 99 08/12/24 04:15 60 26 108/66 98 Ventilator 80 08/12/24 04:00 98.4 62 26 114/66 99 Ventilator 80 08/12/24 04:00 99 Ventilator+ 80 08/12/24 04:00 80 08/12/24 03:25 98.2 70 26 112/69 100 Ventilator+ 80 08/12/24 02:50 82 80 08/12/24 02:42 82/53 08/12/24 02:37 98.4 84 22 110/74 99 Ventilator+ 100 08/12/24 02:04 113 100 08/12/24 01:27 103 23 08/12/24 01:26 99 34 156/79 94 Bi-PAP+ 60 08/12/24 00:30 103 36 50 08/12/24 00:24 101 23 LABS: Hematology Labs: Test 08/12/24 04:03 Range/Units White Blood Count 17.7 H 4.8-10.8 K/uL Red Blood Count 4.30 L 4.50-6.20 MIL/uL Hemoglobin 12.8 L 14.0-18.0 g/dL Hematocrit 42.6 42-54 % Mean Corpuscular Volume 99.1 H 79-99 fL Mean Corpuscular Hemoglobin 29.8 27.0-33.0 pg Mean Corpuscular Hemoglobin Concent 30.0 L 32.0-36.0 g/dL Red Cell Distribution Width 12.8 11.0-15.5 % Platelet Count 128 L 130-400 K/uL Mean Platelet Volume 10.0 7.5-10.5 fL Immature Granulocyte % (Auto) 0.6 0-1 % Neutrophils (%) (Auto) 92.7 H 40.0-77.0 % Lymphocytes (%) (Auto) 2.3 L 21.0-51.0 % Monocytes (%) (Auto) 4.2 3.0-13.0 % Eosinophils (%) (Auto) 0.1 0.0-8.0 % Basophils (%) (Auto) 0.1 0.0-5.0 % Neutrophils # (Auto) 16.4 H 1.8-7.7 K/uL Lymphocytes # (Auto) 0.4 L 1.0-4.8 K/uL Monocytes # (Auto) 0.7 0.1-1.0 K/uL Eosinophils # (Auto) 0.01 0.00-0.70 K/uL Basophils # (Auto) 0.02 0.00-0.20 K/uL Absolute Immature Granulocyte (auto 0.10 0-1 K/uL Nucleated Red Blood Cells 0.0 0.0-0.19 % Chemistry Labs: Test 08/12/24 05:32 08/12/24 04:03 08/12/24 00:26 08/11/24 23:43 Range/Units Whole Blood Glucose 204 H 70-110 MG/DL Sodium Level 136 136-145 mmol/L Potassium Level 5.1 3.5-5.1 mmol/L Chloride Level 97 L 101-111 mmol/L Carbon Dioxide Level 38 H 21-32 mmol/L Blood Urea Nitrogen 18 7-18 mg/dL Creatinine 0.7 0.5-1.3 mg/dL Glomerular Filtration Rate Calc 105 >90 mL/min Random Glucose 216 #H 70-105 mg/dL Total Calcium 8.3 L 8.5-10.1 mg/dL Ionized Calcium 1.02 L 1.16-1.32 MMOL/L Phosphorus Level 2.5 2.5-4.9 mg/dL Magnesium Level 2.60 H 1.80-2.40 mg/dL Total Creatine Kinase 66 21-232 U/L Thyroid Stimulating Hormone (TSH) 0.48 # 0.36-3.74 uIU/mL Lactic Acid Level 1.4 0.8-2.5 mmol/L Troponin I High Sensitivity 8 4-75 ng/L B-Type Natriuretic Peptide 57 0-100 pg/mL Coagulation Labs: Test 08/12/24 04:03 Range/Units Prothrombin Time 9.8 9.6-11.6 SEC Prothromb Time International Ratio <= 0.93 0.85-1.15 D-Dimer Quantitative (PE/DVT) 515 *H 0-500 ng/mL DIAGNOSTICS / RADIOLOGY RESULTS: [ ] PLAN NEURO: Minimize central acting medications as possible. Fall Precautions. Well lighted room through the day and minimize interruptions through the night to prevent acute delirium. PULMONARY: Supplemental 02 as needed Titrate Fio2 to keep Spo2 > or = 90% DuoNebs and CPT as needed IS hourly while awake for pulmonary hygiene Out of bed to chair as tolerated VAP Bundle Vent/BIPAP Settings: [ ] Driving pressure: [ ] P Plat: [ ] Static C: [ ] Static R: [ ] P/F Ratio: [ ] CARDIOVASCULAR: Follow hemodynamics. Titrate vasopressor to keep MAP >65 or systolic blood pressure >95mmHg DIPS: Levophed at 0.04 micrograms/kilograms per minute Propofol Versed Attempt to switch propofol to fentanyl. LINES: PIV GI & NUTRITION: Continue nutritional support Aspirations precautions Prokinetic agents and laxatives as needed Dietary for tube feeding recommendations KIDNEYS & ELECTROLYTES: Strict monitoring of intake and output Daily weights Avoid nephrotoxic agents Monitor electrolytes and replace as needed Goal urine output of 30mL/hr or 0.5mL/kg/hr Urine output: [ ] Fluid Balance: [ ] ENDOCRINE: Maintain blood glucose between 100-180 at all times. Insulin sliding scale for blood glucose management INFECTIOUS DISEASE: Trend temperature. Patricio-culture if febrile. Micro: [ ] Blood cultures Urine culture Respiratory cultures Influenza a and B negative COVID-19 negative Antibiotics: Vancomycin and cefepime HEMATOLOGY & COAGULATION: Monitor H&H. Keep Hgb > 7 Transfuse 1 unit of PRBC for Hgb < 7 Transfuse 1 pack of platelets of platelets < 20, 000 Watch for any signs and symptoms of bleeding SKIN: Pressure ulcer prevention per facility protocol Rehab: PT/OT Prophylaxis: GI: Protonix 40 mg IV push daily DVT: [Lovenox Code Status: Full Resuscitation Disposition: ICU Other: Total patient care time exceeds 35 minutes excluding all procedures. Case was discussed and seen with my supervising physician. The above plan was formulated and agreed upon. SHEY RENAE Aug 12, 2024 08:07
[2024-08-12] MEDS ORDERED: 0.9%NACL 50ML IV SCH (08:30)
[2024-08-12] MEDS ORDERED: rocuRONium bROMide 10MG/1ML 5ML VL IV ONE ×2 (08:36→15:03)
[2024-08-12 08:46] LABS: AMPHET/METH SCREEN,URINE NEGATIVE (NEGATIVE); BARBITURATE SCREEN, URINE NEGATIVE (NEGATIVE); BENZODIAZEPINES SCREEN,URINE NEGATIVE (NEGATIVE); CANNABINOID SCREEN,URINE NEGATIVE (NEGATIVE); COCAINE SCREEN,URINE POSITIVE (NEGATIVE); OPIATE SCREEN,URINE NEGATIVE (NEGATIVE); PHENCYCLIDINE SCREEN,URINE NEGATIVE (NEGATIVE)
--- NOTE | 2024-08-12 08:46 | HMCIMG ---
CHEST 1VW REASON: SOB COMPARISON: 08/06/2024 FINDINGS: There is mild cardiomegaly. There is no pulmonary vascular congestion. Lungs are clear. Mediastinum and bony thorax appear unremarkable. IMPRESSION: 1. Mild cardiomegaly, no acute finding.
--- NOTE | 2024-08-12 08:52 | HMCIMG ---
CHEST 1VW REASON: S/P INTUBATION COMPARISON: 08/12/2024 FINDINGS: There is mild cardiomegaly. There is no pulmonary vascular congestion. Lungs are clear. ET tube tip is at midclavicular point. There is an NG tube passing into the stomach. IMPRESSION: 1. ET and NG tubes in good position.
[2024-08-12] MEDS: ARTIFICAL TEARS SOL 15 ML OU SCH (09:20)
[2024-08-12] MEDS: PANTOPrazole 40 MG/VIAL IVP SCH (10:01)
[2024-08-12] MEDS: CALCIUM GLUC 1GM/10ML VIAL IVPB SCH (10:01)
[2024-08-12] MEDS: miDODRine HCL 5 MG TABLET PO SCH (10:01)
--- NOTE | 2024-08-12 11:09 | NUR ---
Nutritional Note: Chart, meds, and labs Reviewed. Recommend: -Vital AF 1.2 a low CHO formula to reduce CO2 production. -Start TF @20ml x 12hrs and then increase by 5ml q 6hr to goal rate 55ml/hr. 24 TF total provides: 1584kcal, 99gm/pro, and 1071total free H20/day. -250ml H20 flush q 6 or H20 flush as per MD. - Electrolyte replacements per protocol -Monitor feeding tolerance, %, wt, and labs. -Adjust TF goals based on ventilatory status, labs, and clinical condition. -If No BM >3days consider bowel stimulant. - Please notify RD if additional nutrition concerns arise. SEE RD Nutritional Assessment for additional assessment information. Addendum: 08/12/24 at [address] Amended: Links added.
--- NOTE | 2024-08-12 11:31 | HMCIMG ---
CHEST 1VW REASON: hypoxic resp failure intubated COMPARISON: 08/12/2024 FINDINGS: There is mild cardiomegaly. There is some infiltrate in the left lung base which appears new. This could also be atelectasis. Lungs are otherwise clear. There is no vascular congestion. ET and NG tubes appear in good position. IMPRESSION: 1. ET and NG tubes in good position. 2. Interval development of some infiltrate the left lung base.
--- NOTE | 2024-08-12 11:57 | HMCSR ---
APPROVED REPORT EXAM: Two-dimensional and M-mode echocardiogram with Doppler and color Doppler. INDICATION ICD: hypoxia 2D Dimensions RVDd4.6 cmLVEF(%)52.3 (>50%)LVED Vol(simp.)147.0 mL IVSd1.0 (0.7-1.1cm)FS(%)27 %LVES Vol(simp.)60.1 mL LVDd4.5 (3.8-5.6cm)LA (2D)4.0 (1.6-4.0cm)LVEF(%, simp.)60 % PWd1.3 (0.7-1.1cm)Ao Root(2D)3.3 (2.0-3.7cm)LA ESV INDEX (4CH)35.50 mL/m2 IVSs1.1 cmLA ESV INDEX (2CH)52.30 mL/m2 LVDs3.3 (2.5-4.0cm)LA ESV INDEX (BP)43.60 mL/m2 PWs3.4 cm M-Mode Dimensions LA (MM)5.8 (1.6-4.0cm) Ao Root(MM)3.4 (2.0-3.7cm) Aortic Valve AoV VTI0.4 mAo Mean GR7.0 mmHgLVOT VTI0.28 m Mitral Valve MV E Vmax71.3 cm/sDECEL Iidg417 ms MV A Vmax72.3 cm/sP 1/2 T114 ms E/A ratio1.0MVA (PHT)1.9 cm2 TDI E/E' Dsnfas70.5E/E' Lateral6.5 Medial E' Peak V6.20 cm/sLateral E' Peak V10.90 cm/s Left Ventricle The left ventricle is mildly dilated. There is normal LV segmental wall motion. There is normal left ventricular wall thickness. LVEF is 60-65%. The left ventricular diastolic function is normal. Right Ventricle The right ventricle is mildly dilated. Right ventricular systolic function is mildly reduced. Atria The left atrium is mildly dilated. The right atrium is mildly dilated. Aortic Valve The aortic valve is normal in structure and function. No aortic regurgitation is present. There is no aortic valvular stenosis. Mitral Valve The mitral valve is normal in structure and function. There is no mitral valve regurgitation noted. T here is no mitral valve stenosis. Tricuspid Valve The tricuspid valve is normal in structure and function. There is no tricuspid valve regurgitation no clyde. Pulmonic Valve The pulmonary valve is normal in structure and function. There is no pulmonic valvular regurgitation. Great Vessels The aortic root is normal in size. The IVC is normal in size and collapses >50% with inspiration. Pericardium No pericardial effusion. Conclusion LVEF is 60-65%.
[2024-08-12 13:08] LABS: ABG BASE EXCESS 8.1 mmol/L (-2.0-3.0); ABG HCO3 34.3 mmol/L (21.0-28.0); ABG OXYGEN SATURATION 90.5 % (94.0-98.0); ABG PCO2 54 mmHg (35-48); ABG PH 7.424 (7.350-7.450); DEVICE COMMENT LR RAQUEL; PO2, ARTERIAL BG 58.5 mmHg (83.0-108.0); VENT MODE, BG ACVC (ROOM AIR)
--- NOTE | 2024-08-12 14:31 | HMCIMG ---
US VENOUS DOPPLER BILATERAL REASON: rule out DVT COMPARISON: None Technique: Bilateral venous doppler ultrasound was performed with spectral analysis and color flow imaging technique. FINDINGS: There is a normal appearance of the common femoral, deep femoral, the profunda femoris and popliteal veins. Proximal calf veins appear normal as well. There is normal response to compression and augmentation. There is no evidence of deep venous thrombosis. IMPRESSION: Normal bilateral lower extremity venous Doppler ultrasound.
[2024-08-12] MEDS: VANCOMYCIN 1.75 GM/250 ML BAG 250 ML IV SCH (15:23)
--- NOTE | 2024-08-12 17:55 | NUR ---
DC Planning Patient intubated. Spoke to sister Crystal to provide baseline information. Patient lives alone but lives close to sister Crystal. Has a provider. Unsure if patient has HHS. DME: home oxygen, nebulizer, wheel chair, and cane. Sister states patient is from , but does not think they are legally . Patient has a daughter and doesn't have a phone number for her but knows where she lives and can contact daughter if needed. No SDOH needs identified by sister. IRMA to follow up once patient extubated regarding DC Plan. Addendum: 08/12/24 at 1755 by KATHLEEN PASTOR CM Amended: Links added.
[2024-08-13] VITALS (105 sets, daily range): BP systolic 74–164; BP diastolic 38–88; PULSE 50–119; RESP 18–30; TEMP 99–101.5; O2SAT 92–98
[2024-08-13 04:19] LABS: BASOPHILS # (AUTO) 0.01 K/uL (0.00-0.20); BASOPHILS % (AUTO) 0.1 % (0.0-5.0); HEMATOCRIT 40.4 % (42-54); IMMATURE GRANULOCYTE ABSOLUTE 0.06 K/uL (0-1); LYMPHOCYTES # (AUTO) 0.4 K/uL (1.0-4.8); LYMPHOCYTES % (AUTO) 3.3 % (21.0-51.0); MEAN CORPUSCULAR HEMOGLOBIN 30.4 pg (27.0-33.0); MEAN CORPUSCULAR HGB CONC 30.4 g/dL (32.0-36.0); MONOCYTES # (AUTO) 0.8 K/uL (0.1-1.0); NEUTROPHILS # (AUTO) 11.5 K/uL (1.8-7.7); NEUTROPHILS % (AUTO) 90.1 % (40.0-77.0); PLATELET COUNT (AUTO) 113 K/uL (130-400); RED BLOOD CELL COUNT(AUTO) 4.04 MIL/uL (4.50-6.20); RED CELL DISTRIBUTION WIDTH 13.2 % (11.0-15.5); WHITE BLOOD COUNT (AUTO) 12.8 K/uL (4.8-10.8)
[2024-08-13 04:35] LABS: ABG BASE EXCESS 2.8 mmol/L (-2.0-3.0); ABG HCO3 29.1 mmol/L (21.0-28.0); ABG OXYGEN SATURATION 91.6 % (94.0-98.0); ABG PCO2 52 mmHg (35-48); ABG PH 7.369 (7.350-7.450); CARBON MONOXIDE 0.5 % (0.5-1.5); HHb 8.3; PO2, ARTERIAL BG 65.4 mmHg (83.0-108.0); VENT MODE, BG AC (ROOM AIR)
[2024-08-13 04:40] LABS: ALBUMIN 2.6 g/dL (3.5-5.0); BILIRUBIN,TOTAL 0.4 mg/dL (0.2-1.0); CREATININE 0.6 mg/dL (0.5-1.3); MAGNESIUM 2.3 mg/dL (1.80-2.40); PHOSPHORUS 2.8 mg/dL (2.5-4.9); TOTAL PROTEIN, SERUM 5.9 g/dL (6.0-8.3)
[2024-08-13 04:51] LABS: HEMOGLOBIN A1C 5.8 % (4.0-6.0)
[2024-08-13 05:10] LABS: B-TYPE NATRIURETIC PEPTIDE 30 pg/mL (0-100)
[2024-08-13] MEDS: acetaMINOPHEN 650 MG/20.3 ML UDCUP PEG PRN (06:12)
--- NOTE | 2024-08-13 08:42 | HMCIMG ---
PORTABLE CHEST RADIOGRAPH INDICATION: resp failure COMPARISON: 08/12/2024 FINDINGS: cafeteria monitor leads overlie the field of view. Stable endotracheal and NG tubes. Stable heart size, but unchanged mild pulmonary vascular enlargement. Linear opacities at both lung bases remain unchanged without consolidation. No significant pleural effusion noted. No pneumothorax detected. IMPRESSION: No change when compared to the 08/12/2024 study.
[2024-08-13] MEDS: furoSEMIDE 40MG VIAL IV ONE (09:26)
[2024-08-13] MEDS: dexmedeTOMIDine 400MCG/NS100ML IV SCH (09:27)
--- NOTE | 2024-08-13 09:38 | PN ---
[facility] PROGRESS NOTE Date Patient Seen: Aug 13, 2024 Time of Visit: 09:24 Supervising Physician: Rick Pillai MD Primary Care Physician: [Dr. Zafar Harris ] Outpatient Specialists: [ ] Inpatient Consults: [ ] PROBLEM LIST: Septic Shock POA requiring PRESSORS Acute on chronic hypoxic hypercapnic respiratory failure requiring vent support- POA Sepsis secondary to suspected community-acquired pneumonia-POA Suspected aspiration pneumonia POA COPD/asthma/emphysema exacerbation-POA Suspected septic shock requiring pressor support-POA Hypochloremia-POA Primary hypertension Diabetes mellitus HLD Chronic nicotine disorder Obstructive sleep apnea Polysubstance abuse with tobacco, cocaine and alcohol Fatty Liver Morbid obese, BMI 39.9 INTERVAL HISTORY: "Patient is unable to participate on the HPI due to intubated and sedated. Per ED notes:"The patient is a 59-year-old male with a history of COPD on chronic o2, emphysema, asthma, everyday smoker, diabetes and hypertension who presents to the emergency department with worsening shortness of breath onset 2 days ago. Patient reports occasional productive cough. Denies any fevers.Denies chest pain. Patient reports he was just discharged two days ago." According to the girlfriend at bedside, patient was doing well in the morning and in the afternoon until about 6:00 p.m. prior to admission when he started getting restless and having a lot of coughing and phlegm. Despite BiPAP treatment at the ED, he was not able to tolerate and blood gas continues to decline leading to intubation. " 08/12/24 AM rounds- patient is sedated with propofol and Versed drip, continues intubated. ABGs improving with a pH of 7.4 pCO2 of 57 PO2 of 205 and bicarb of 35. PF ratio 256. Ventilator settings adjusted to tidal volume of 450, respiratory rate of 26, 60% FiO2 and, peep down to 5. He was requiring minimal vasopressor support with Levophed at 0.04 micrograms/kilogram per minute, blood pressure 123/66 heart rate 58 respiratory rate of 26 O2 sat 98% with a FiO2 of 60%. Patient has Michele catheter with urine output of 350 mL this morning. patient is negative for influenza type a and B and COVID-19. WBCs 17.7 today H&H is similar to yesterday 12.8/42.6 with a platelet count that is 128 K slightly improving from yesterday which were 122 K. neutrophils 92.7 similar to yeste rday. Chemistry BUN 18 creatinine 0.7 GFR of 105 kidneys are doing well glucose of 216 mg/dL we will adjust insulin total calcium 1.02 magnesium of 2.6. TSH is 0.48. On last chest x-ray approximately at 01:37 in the morning post intubation ET tube slightly above the aortic notch we will repeat chest x-ray at this time to evaluate placement on x-ray noted to have bilateral pulmonary infiltrates with pulmonary vascular congestion no pneumothorax noted. 08/13/24- Patient has a few episodes with high pressors overnight and he was sedated again with Versed at 10 milligrams/hour and fentanyl at 250 micrograms/kilogram per minute. This morning we can try switching over to Precedex instead of Versed in preparation for sedation vacation. He has been off Levophed early this morning but now back on minimal dose of 0.01 micrograms/kilogram per minute. Urine output 1.2 L in the last 24 hours with a positive balance of 2.2 L. No bowel movement. WBCs trending down 12.8 H&H is 12.3/40.4 platelet count is 316057 slightly lower than yesterday. Chemistries sodium 139 potassium is 5, carbon dioxide 37 BUN of 18 creatinine of 0.6 and GFR 110, kidneys are doing good. Glucose 112 mg/dL, liver enzymes normal, albumin 2.6 total protein 5.9 procalcitonin 0.32, BNP of 30, patient has spiked a fever overnight of 101.5. Chest x-ray improving, ET tube 4.4 cm above the chencho in good position, with bilateral pulmonary infiltrates, increased pulmonary vascular congestion. Venous Doppler done yesterday normal bilateral lower extremity venous Doppler without evidence of DVT. Pending CTA to rule out PE due to hypoxemia and elevated D-Dimer and on pressors. We will cover for aspiration pneumonia due to spiking fever with Flagyl. We will also panculture. REVIEW OF SYSTEMS: Unable to perform due to patient intubated and sedated. PHYSICAL EXAM: GENERAL: Intubated and sedated HEENT: EOMI, Sclera non icteric, moist mucosa NECK: Supple, no JVD, trachea midline LUNGS: rhonchi to left lobes, diminished to rt lower. breath sounds bilaterally. No wheezes HEART: Regular rate and rhythm. Normal S1 and S2, without murmurs ABD: Abdomen obese firm, nontender. Bowel sounds present EXT: No clubbing cyanosis or edema NEURO: Unable to assess due to intubation and sedation Vital Signs (last 8hr) Date Time Temp Pulse Resp B/P (MAP) Pulse Ox O2 Delivery O2 Flow Rate FiO2 08/13/24 08:30 63 26 87/48 (61) 94 08/13/24 08:15 66 26 89/55 (66) 94 08/13/24 08:00 65 26 90/50 (63) 94 08/13/24 08:00 97 Ventilator+ 55 08/13/24 08:00 55 08/13/24 07:45 65 26 94/53 (67) 94 08/13/24 07:30 64 26 97/54 (68) 94 08/13/24 07:15 67 26 88/46 (60) 92 08/13/24 07:00 71 26 90/49 (63) 93 08/13/24 06:48 69 26 08/13/24 06:45 99.1 71 26 83/44 (57) 96 08/13/24 06:43 69 55 08/13/24 06:30 68 26 86/49 (61) 95 08/13/24 06:15 67 26 90/53 (65) 94 08/13/24 06:12 101.5 08/13/24 06:00 74 21 96/57 (70) 94 08/13/24 05:45 70 26 104/58 (73) 93 08/13/24 05:30 70 26 106/61 (76) 93 55 08/13/24 05:15 70 26 104/57 (73) 92 55 08/13/24 05:00 70 26 95/52 (66) 92 55 08/13/24 04:45 69 26 94/54 (67) 92 55 08/13/24 04:30 71 26 96/52 (67) 92 55 08/13/24 04:15 72 26 102/60 (74) 93 55 08/13/24 04:00 94 Ventilator+ 55 08/13/24 04:00 101.5 73 26 124/62 (82) 94 55 08/13/24 04:00 101.5 08/13/24 03:45 78 26 74/38 (50) 98 55 08/13/24 03:30 63 26 97/51 (66) 93 55 08/13/24 03:15 63 55 08/13/24 03:15 63 26 97/56 (70) 93 08/13/24 03:00 63 26 98/55 (69) 94 08/13/24 02:45 63 26 92/54 (67) 93 08/13/24 02:30 63 26 96/53 (67) 93 08/13/24 02:15 62 26 93/52 (66) 93 55 08/13/24 02:00 63 26 96/52 (67) 93 55 08/13/24 01:49 62 55 08/13/24 01:45 64 26 92/53 (66) 93 55 08/13/24 01:30 63 26 96/55 (69) 93 55 LABS: Hematology Labs: Test 08/13/24 04:08 Range/Units White Blood Count 12.8 H 4.8-10.8 K/uL Red Blood Count 4.04 L 4.50-6.20 MIL/uL Hemoglobin 12.3 L 14.0-18.0 g/dL Hematocrit 40.4 L 42-54 % Mean Corpuscular Volume 100.0 H 79-99 fL Mean Corpuscular Hemoglobin 30.4 27.0-33.0 pg Mean Corpuscular Hemoglobin Concent 30.4 L 32.0-36.0 g/dL Red Cell Distribution Width 13.2 11.0-15.5 % Platelet Count 113 L 130-400 K/uL Mean Platelet Volume 10.4 7.5-10.5 fL Immature Granulocyte % (Auto) 0.5 0-1 % Neutrophils (%) (Auto) 90.1 H 40.0-77.0 % Lymphocytes (%) (Auto) 3.3 L 21.0-51.0 % Monocytes (%) (Auto) 6.0 3.0-13.0 % Eosinophils (%) (Auto) 0.0 0.0-8.0 % Basophils (%) (Auto) 0.1 0.0-5.0 % Neutrophils # (Auto) 11.5 H 1.8-7.7 K/uL Lymphocytes # (Auto) 0.4 L 1.0-4.8 K/uL Monocytes # (Auto) 0.8 0.1-1.0 K/uL Eosinophils # (Auto) 0.00 0.00-0.70 K/uL Basophils # (Auto) 0.01 0.00-0.20 K/uL Absolute Immature Granulocyte (auto 0.06 0-1 K/uL Nucleated Red Blood Cells 0.0 0.0-0.19 % Chemistry Labs: Test 08/13/24 04:08 08/12/24 16:22 08/12/24 08:55 08/12/24 04:03 Range/Units Sodium Level 139 136-145 mmol/L Potassium Level 5.0 3.5-5.1 mmol/L Chloride Level 101 101-111 mmol/L Carbon Dioxide Level 37 H 21-32 mmol/L Blood Urea Nitrogen 18 7-18 mg/dL Creatinine 0.6 0.5-1.3 mg/dL Glomerular Filtration Rate Calc 110 >90 mL/min Random Glucose 112 H 70-105 mg/dL Hemoglobin A1c 5.8 4.0-6.0 % Estimated Average Glucose (eAG) 120 70-126 mg/dL Total Calcium 8.8 8.5-10.1 mg/dL Phosphorus Level 2.8 2.5-4.9 mg/dL Magnesium Level 2.30 1.80-2.40 mg/dL Total Bilirubin 0.4 0.2-1.0 mg/dL Aspartate Amino Transf (AST/SGOT) 35 10-37 U/L Alanine Aminotransferase (ALT/SGPT) 29 12-78 U/L Alkaline Phosphatase 84 50-136 U/L B-Type Natriuretic Peptide 30 0-100 pg/mL Total Protein 5.9 L 6.0-8.3 g/dL Albumin 2.6 L 3.5-5.0 g/dL Procalcitonin 0.32 0.05-0.5 ng/mL Whole Blood Glucose 134 H 70-110 MG/DL Total Creatine Kinase 33 # 21-232 U/L Troponin I High Sensitivity 4.8 4-75 ng/L Ionized Calcium 1.02 L 1.16-1.32 MMOL/L Thyroid Stimulating Hormone (TSH) 0.48 # 0.36-3.74 uIU/mL Test 08/12/24 00:26 Range/Units Lactic Acid Level 1.4 0.8-2.5 mmol/L Coagulation Labs: Test 08/12/24 04:03 Range/Units Prothrombin Time 9.8 9.6-11.6 SEC Prothromb Time International Ratio <= 0.93 0.85-1.15 D-Dimer Quantitative (PE/DVT) 515 *H 0-500 ng/mL DIAGNOSTICS / RADIOLOGY RESULTS: IMAGING REPORT Signed PATIENT: CHRISTINE CURTIS MR#: [id number] : 1965 SEX: M AGE: 59 LOCATION: [facility] ORDER 2300 STATUS: ADM IN REPORT#: [id number] SERVICE 0600 REASON: resp failure ORDERING PHYSICIAN: SHEY RENAE PROCEDURE: CXR1VW - CHEST 1VW PORTABLE CHEST RADIOGRAPH INDICATION: resp failure COMPARISON: 08/12/2024 FINDINGS: child monitor leads overlie the field of view. Stable endotracheal and NG tubes. Stable heart size, but unchanged mild pulmonary vascular enlargement. Linear opacities at both lung bases remain unchanged without consolidation. No significant pleural effusion noted. No pneumothorax detected. IMPRESSION: No change when compared to the 08/12/2024 study. DICTATED BY: SOFIYA TIRADO MD DATE: 08/13/24838 ELECTRONICALLY SIGNED BY: SOFIYA TIRADO MD DATE: 08/13/24841 PLAN -continue in ICU -titrate oxygen to keep saturation above 92%: -reinforce VAP prevention protocol -daily SBT as tolerated -spiked fever- panculture -follow cultures -DuoNeb q.6 hours scheduled and p.r.n. for SOB/wheezing -IV steroid therapy wean when possible - chest XR in am -Q 2 hour turning and repositioning to prevent HAPI -smoking cessation education once fully awake - drug abuse education once awake. - CTA to rule out PE NEURO: Minimize central acting medications as possible. Fall Precautions. Well lighted room through the day and minimize interruptions through the night to prevent acute delirium. PULMONARY: Supplemental 02 as needed Titrate Fio2 to keep Spo2 > or = 90% DuoNebs and CPT as needed IS hourly while awake for pulmonary hygiene Out of bed to chair as tolerated VAP Bundle Current vent setting VT 450, rate 26, FiO2 60%, Peep 7 PF Ratio 115 Plateau pressure 27 CARDIOVASCULAR: Follow hemodynamics. Titrate vasopressor to keep MAP >65 or systolic blood pressure >95mmHg DIPS: Levophed at 0.01 micrograms/kilograms per minute fentanyl Versed - switch to precedex LINES: PIV GI & NUTRITION: Continue nutritional support Aspirations precautions Prokinetic agents and laxatives as needed Dietary for tube feeding recommendations KIDNEYS & ELECTROLYTES: Strict monitoring of intake and output Daily weights Avoid nephrotoxic agents Monitor electrolytes and replace as needed Goal urine output of 30mL/hr or 0.5mL/kg/hr ENDOCRINE: Maintain blood glucose between 100-180 at all times. Insulin sliding scale for blood glucose management INFECTIOUS DISEASE: Trend temperature. Patricio-culture if febrile. Micro: [ ] Blood cultures Urine culture Respiratory cultures Influenza a and B negative COVID-19 negative Antibiotics: Vancomycin and cefepime Add Flagyl HEMATOLOGY & COAGULATION: Monitor H&H. Keep Hgb > 7 Transfuse 1 unit of PRBC for Hgb < 7 Transfuse 1 pack of platelets of platelets < 20, 000 Watch for any signs and symptoms of bleeding SKIN: Pressure ulcer prevention per facility protocol Rehab: PT/OT Prophylaxis: GI: Protonix 30 mg IV push bid DVT: [Lovenox Code Status: Full Resuscitation Disposition: ICU Other: Total patient care time exceeds 35 minutes excluding all procedures. Case was discussed and seen with my supervising physician. The above plan was formulated and agreed upon. SHEY RENAE Aug 13, 2024 09:38
--- NOTE | 2024-08-13 10:24 | NUR ---
CT CHEST PE ON HOLD UNTIL FURTHER NOTICE: PER NURSE, PATIENT ALLERGIC TO IODINE. NURSE WILL CALL CT BACK AFTER TALKING TO PROVIDER ABOUT PREMEDICATING PATIENT FOR CT EXAM.
[2024-08-13] MEDS: metRONIDazole 500MG/100ML BAG 100 ML IVPB SCH (13:28)
[2024-08-13 14:14] LABS: COVID19 (SARS ANTIGEN RAPID) PRESUMPTIVE NEGATIVE (NEGATIVE); INFLUENZA TYPE B Negative For Type B (NEGATIVE)
[2024-08-13 14:21] LABS: INFLUENZA TYPE A Positive For Type A (NEGATIVE)
--- NOTE | 2024-08-13 14:59 | NUR ---
belongings white ring and bracelet with security.
--- NOTE | 2024-08-13 19:15 | NUR ---
CRITICAL CARE CRITICAL CARE PRODUCTION SUPPORT SUPERVISOR PAGED REGARDING CONSULT. PENDING CALL BACK. Addendum: 08/13/24 at 1935 by BRENDEN CORRALES RN RN INCORRECT CHART
[2024-08-13] MEDS: NYSTatin 15 GM POWDER TP SCH (20:51)
[2024-08-13] MEDS: OSELTAMIVIR PHOSPHATE 75 MG CAP PO SCH (20:51)
[2024-08-14] VITALS (85 sets, daily range): BP systolic 91–169; BP diastolic 47–102; PULSE 43–90; RESP 13–46; TEMP 98.2–98.6; O2SAT 93–98
[2024-08-14 04:49] LABS: ABG BASE EXCESS 6.6 mmol/L (-2.0-3.0); ABG HCO3 32.6 mmol/L (21.0-28.0); ABG OXYGEN SATURATION 96.8 % (94.0-98.0); ABG PCO2 51 mmHg (35-48); PO2, ARTERIAL BG 88.4 mmHg (83.0-108.0); VENT MODE, BG AC (ROOM AIR)
[2024-08-14 05:21] LABS: BASOPHILS # (AUTO) 0.01 K/uL (0.00-0.20); BASOPHILS % (AUTO) 0.1 % (0.0-5.0); HEMATOCRIT 40.6 % (42-54); IMMATURE GRANULOCYTE ABSOLUTE 0.03 K/uL (0-1); LYMPHOCYTES # (AUTO) 0.4 K/uL (1.0-4.8); LYMPHOCYTES % (AUTO) 4.7 % (21.0-51.0); MEAN CORPUSCULAR HEMOGLOBIN 30.2 pg (27.0-33.0); MEAN CORPUSCULAR HGB CONC 31.8 g/dL (32.0-36.0); MEAN CORPUSCULAR VOLUME 95.1 fL (79-99); MONOCYTES # (AUTO) 0.6 K/uL (0.1-1.0); MONOCYTES % (AUTO) 7.9 % (3.0-13.0); NEUTROPHILS # (AUTO) 6.8 K/uL (1.8-7.7); NEUTROPHILS % (AUTO) 86.9 % (40.0-77.0); PLATELET COUNT (AUTO) 128 K/uL (130-400); RED BLOOD CELL COUNT(AUTO) 4.27 MIL/uL (4.50-6.20); RED CELL DISTRIBUTION WIDTH 13.2 % (11.0-15.5); WHITE BLOOD COUNT (AUTO) 7.9 K/uL (4.8-10.8)
[2024-08-14 05:50] LABS: ALBUMIN 2.3 g/dL (3.5-5.0); BILIRUBIN,TOTAL 0.3 mg/dL (0.2-1.0); CREATININE 0.5 mg/dL (0.5-1.3); POTASSIUM 4.8 mmol/L (3.5-5.1); TOTAL PROTEIN, SERUM 6.2 g/dL (6.0-8.3)
[2024-08-14 05:58] LABS: HEMOGLOBIN A1C 5.8 % (4.0-6.0)
[2024-08-14 06:13] LABS: B-TYPE NATRIURETIC PEPTIDE 132 pg/mL (0-100)
--- NOTE | 2024-08-14 08:27 | HMCIMG ---
PORTABLE CHEST RADIOGRAPH INDICATION: intubated COMPARISON: 08/13/2024 FINDINGS/IMPRESSION: Median sternotomy wires are in appropriate alignment. Stable endotracheal and nasogastric tubes. Stable cardiac enlargement and mild pulmonary vascular congestion. Unchanged bilateral lung linear opacities, without pneumothorax.
[2024-08-14] MEDS ORDERED: DOPamine 800MG/D5 250ML 250 ML IV PRN (08:30)
--- NOTE | 2024-08-14 08:31 | NUR ---
PER NURSE, WILL CALL CT DEPT. WHEN READY TO BRING PATIENT FOR EXAM.
--- NOTE | 2024-08-14 08:36 | PN ---
[facility] PROGRESS NOTE Date Patient Seen: Aug 14, 2024 Time of Visit: 07:48 Supervising Physician: Rick Pillai MD Primary Care Physician: [Dr. Zafar Harris ] Outpatient Specialists: [ ] Inpatient Consults: [ ] PROBLEM LIST: Septic Shock POA requiring PRESSORS 2/2 Gram-positive cocci bacteremia, POA Acute on chronic hypoxic hypercapnic respiratory failure requiring vent support- POA Elevated D-Dimer Neg DVT Well score for PE 1.5 (Low Risk) Viral community-acquired pneumonia-POA + Influenza A Suspected aspiration pneumonia POA COPD/asthma/emphysema exacerbation-POA Constipation with firm abdomen r/o sbo Hypochloremia-POA Primary hypertension Diabetes mellitus HLD Chronic nicotine disorder Obstructive sleep apnea Polysubstance abuse with tobacco, cocaine and alcohol Fatty Liver Morbid obese, BMI 39.9 INTERVAL HISTORY: "Patient is unable to participate on the HPI due to intubated and sedated. Per ED notes:"The patient is a 59-year-old male with a history of COPD on chronic o2, emphysema, asthma, everyday smoker, diabetes and hypertension who presents to the emergency department with worsening shortness of breath onset 2 days ago. Patient reports occasional productive cough. Denies any fevers.Denies chest pain. Patient reports he was just discharged two days ago." According to the girlfriend at bedside, patient was doing well in the morning and in the afternoon until about 6:00 p.m. prior to admission when he started getting restless and having a lot of coughing and phlegm. Despite BiPAP treatment at the ED, he was not able to tolerate and blood gas continues to decline leading to intubation. " 08/12/24 AM rounds- patient is sedated with propofol and Versed drip, continues intubated. ABGs improving with a pH of 7.4 pCO2 of 57 PO2 of 205 and bicarb of 35. PF ratio 256. Ventilator settings adjusted to tidal volume of 450, respiratory rate of 26, 60% FiO2 and, peep down to 5. He was requiring minimal vasopressor support with Levophed at 0.04 micrograms/kilogram per minute, blood pressure 123/66 heart rate 58 respiratory rate of 26 O2 sat 98% with a FiO2 of 60%. Patient has Michele catheter with urine output of 350 mL this morning. patient is negative for influenza type a and B and COVID-19. WBCs 17.7 today H&H is similar to yesterday 12.8/42.6 with a platelet count that is 128 K slightly imp roving from yesterday which were 122 K. neutrophils 92.7 similar to yesterday. Chemistry BUN 18 creatinine 0.7 GFR of 105 kidneys are doing well glucose of 216 mg/dL we will adjust insulin total calcium 1.02 magnesium of 2.6. TSH is 0.48. On last chest x-ray approximately at 01:37 in the morning post intubation ET tube slightly above the aortic notch we will repeat chest x-ray at this time to evaluate placement on x-ray noted to have bilateral pulmonary infiltrates with pulmonary vascular congestion no pneumothorax noted. 08/13/24- Patient has a few episodes with high pressors overnight and he was sedated again with Versed at 10 milligrams/hour and fentanyl at 250 micrograms/kilogram per minute. This morning we can try switching over to Precedex instead of Versed in preparation for sedation vacation. He has been off Levophed early this morning but now back on minimal dose of 0.01 micrograms/kilogram per minute. Urine output 1.2 L in the last 24 hours with a positive balance of 2.2 L. No bowel movement. WBCs trending down 12.8 H&H is 12.3/40.4 platelet count is 173278 slightly lower than yesterday. Chemistries sodium 139 potassium is 5, carbon dioxide 37 BUN of 18 creatinine of 0.6 and GFR 110, kidneys are doing good. Glucose 112 mg/dL, liver enzymes normal, albumin 2.6 total protein 5.9 procalcitonin 0.32, BNP of 30, patient has spiked a fever overnight of 101.5. Chest x-ray improving, ET tube 4.4 cm above the chencho in good position, with bilateral pulmonary infiltrates, increased pulmonary vascular congestion. Venous Doppler done yesterday normal bilateral lower extremity venous Doppler without evidence of DVT. Pending CTA to rule out PE due to hypoxemia and elevated D-Dimer and on pressors. We will cover for aspiration pneumonia due to spiking fever with Flagyl. We will also panculture. 08/14/24-patient continues on mechanical ventilation and Levophed at 0.05 micrograms/kilogram per minute he is currently heavily sedated with fentanyl and Precedex. We will attempt to fentanyl and leave on Precedex only today. Latest ABGs with the improvement pH of 7.424/51/88.44/32.6. This is likely his baseline given that he was chronic respiratory failure and history of COPD. Patient's temperature is has been decreasing with a T-max of 101.5 yesterday and a T low of 99. I&O balance + 856 mL with a urine output of 1.9 L. WBCs have improved today 7.9 H&H is 12.9/40.6 with a platelet count of [id number] improving, neutrophils are going down as well today 86.9 from 90.1 yesterday. Chemistry kidneys are doing well creatinine 0.5 GFR 116 mg/dL. Procalcitonin is normal glucose 127 mg/dL. Yesterday's recheck of influenza came back positive for type a influenza. He has been started on Tamiflu. On microbiology : Blood cultures growing Gram-positive cocci . Pending final culture. Patient continues on vancomycin, cefepime and Flagyl. Chest x-ray with increased vascular congestion and pulmonary infiltrates. Starting Lasix 20 mg IV q.8 hours. REVIEW OF SYSTEMS: Unable to perform due to patient intubated and sedated. PHYSICAL EXAM: GENERAL: Intubated and sedated HEENT: EOMI, Sclera non icteric, moist mucosa NECK: Supple, no JVD, trachea midline LUNGS: rhonchi to left lobes, diminished to rt lower. breath sounds bilaterally. No wheezes HEART: Regular rate and rhythm. Normal S1 and S2, without murmurs ABD: Abdomen obese firm, nontender. Bowel sounds present EXT: No clubbing cyanosis or edema NEURO: Unable to assess due to intubation and sedation Vital Signs (last 8hr) Date Time Temp Pulse Resp B/P (MAP) Pulse Ox O2 Delivery O2 Flow Rate FiO2 08/14/24 07:01 50 26 113/63 (80) 93 08/14/24 06:46 50 26 116/67 (83) 93 08/14/24 06:35 43 26 08/14/24 06:33 43 60 08/14/24 06:31 50 26 107/58 (74) 97 08/14/24 06:16 44 26 116/70 (85) 97 08/14/24 06:01 44 26 115/70 (85) 96 08/14/24 05:46 45 26 116/68 (84) 95 1/5/25 05:31 45 27 117/70 (86) 96 08/14/24 05:19 47 25 110/55 (73) 98 08/14/24 04:47 45 13 169/89 (115) 98 08/14/24 04:32 45 26 162/84 (110) 98 08/14/24 04:20 47 60 08/14/24 04:17 46 27 157/87 (110) 97 08/14/24 04:02 47 26 150/81 (104) 97 08/14/24 04:00 96 Ventilator+ 60 08/14/24 03:47 48 26 151/82 (105) 97 08/14/24 03:31 47 24 150/82 (104) 95 08/14/24 03:17 49 27 136/76 (96) 96 08/14/24 03:02 49 26 141/81 (101) 97 08/14/24 02:47 48 26 153/88 (109) 98 08/14/24 02:32 48 26 153/91 (111) 98 08/14/24 02:17 48 26 155/86 (109) 98 08/14/24 02:02 49 26 152/84 (106) 98 08/14/24 01:47 49 26 157/82 (107) 98 08/14/24 01:32 49 26 152/87 (108) 98 08/14/24 01:17 49 26 156/83 (107) 98 08/14/24 01:02 50 26 154/88 (110) 98 08/14/24 00:47 56 26 156/87 (110) 98 08/14/24 00:32 50 27 155/87 (109) 98 08/14/24 00:32 50 26 08/14/24 00:31 51 60 08/14/24 00:17 51 26 155/84 (107) 98 08/14/24 00:02 51 26 154/90 (111) 98 08/14/24 00:00 94 Ventilator+ 60 LABS: Hematology Labs: Test 08/14/24 05:12 Range/Units White Blood Count 7.9 4.8-10.8 K/uL Red Blood Count 4.27 L 4.50-6.20 MIL/uL Hemoglobin 12.9 L 14.0-18.0 g/dL Hematocrit 40.6 L 42-54 % Mean Corpuscular Volume 95.1 79-99 fL Mean Corpuscular Hemoglobin 30.2 27.0-33.0 pg Mean Corpuscular Hemoglobin Concent 31.8 L 32.0-36.0 g/dL Red Cell Distribution Width 13.2 11.0-15.5 % Platelet Count 128 L 130-400 K/uL Mean Platelet Volume 10.5 7.5-10.5 fL Immature Granulocyte % (Auto) 0.4 0-1 % Neutrophils (%) (Auto) 86.9 H 40.0-77.0 % Lymphocytes (%) (Auto) 4.7 L 21.0-51.0 % Monocytes (%) (Auto) 7.9 3.0-13.0 % Eosinophils (%) (Auto) 0.0 0.0-8.0 % Basophils (%) (Auto) 0.1 0.0-5.0 % Neutrophils # (Auto) 6.8 1.8-7.7 K/uL Lymphocytes # (Auto) 0.4 L 1.0-4.8 K/uL Monocytes # (Auto) 0.6 0.1-1.0 K/uL Eosinophils # (Auto) 0.00 0.00-0.70 K/uL Basophils # (Auto) 0.01 0.00-0.20 K/uL Absolute Immature Granulocyte (auto 0.03 0-1 K/uL Nucleated Red Blood Cells 0.0 0.0-0.19 % White Cell Morphology Comment See comments Chemistry Labs: Test 08/14/24 06:17 08/14/24 05:12 08/13/24 04:08 08/12/24 08:55 Range/Units Whole Blood Glucose 136 H 70-110 MG/DL Sodium Level 137 136-145 mmol/L Potassium Level 4.8 3.5-5.1 mmol/L Chloride Level 101 101-111 mmol/L Carbon Dioxide Level 30 21-32 mmol/L Blood Urea Nitrogen 14 7-18 mg/dL Creatinine 0.5 0.5-1.3 mg/dL Glomerular Filtration Rate Calc 116 >90 mL/min Random Glucose 127 H 70-105 mg/dL Hemoglobin A1c 5.8 4.0-6.0 % Estimated Average Glucose (eAG) 120 70-126 mg/dL Total Calcium 8.4 L 8.5-10.1 mg/dL Total Bilirubin 0.3 0.2-1.0 mg/dL Aspartate Amino Transf (AST/SGOT) 53 H 10-37 U/L Alanine Aminotransferase (ALT/SGPT) 32 12-78 U/L Alkaline Phosphatase 79 50-136 U/L B-Type Natriuretic Peptide 132 H 0-100 pg/mL Total Protein 6.2 6.0-8.3 g/dL Albumin 2.3 L 3.5-5.0 g/dL Procalcitonin 0.20 0.05-0.5 ng/mL Phosphorus Level 2.8 2.5-4.9 mg/dL Magnesium Level 2.30 1.80-2.40 mg/dL Total Creatine Kinase 33 # 21-232 U/L Troponin I High Sensitivity 4.8 4-75 ng/L DIAGNOSTICS / RADIOLOGY RESULTS: [ ] PLAN -continue in ICU -titrate oxygen to keep saturation above 92%: -reinforce VAP prevention protocol -daily SBT as tolerated, patient waking up following command given thumbs up. Daily sedation vacations. Valium 5 mg q.8 hours via NG tube. Patient has not had a bowel movement abdomen is firm bowel sounds are hy poactive, CT abdomen to rule out SBO. -follow cultures -DuoNeb q.6 hours scheduled and p.r.n. for SOB/wheezing -IV steroid therapy wean when possible Chest x-ray q.a.m. while intubated. -Q 2 hour turning and repositioning to prevent HAPI -smoking cessation education once fully awake - drug abuse education once awake. Follow blood cultures. Repeat tomorrow. NEURO: Minimize central acting medications as possible. Fall Precautions. Well lighted room through the day and minimize interruptions through the night to prevent acute delirium. PULMONARY: Supplemental 02 as needed Titrate Fio2 to keep Spo2 > or = 90% DuoNebs and CPT as needed IS hourly while awake for pulmonary hygiene Out of bed to chair as tolerated VAP Bundle Current vent setting VT 450, rate 26, FiO2 60%, Peep 7 PF Ratio 115 Plateau pressure 27 CARDIOVASCULAR: Follow hemodynamics. Titrate vasopressor to keep MAP >65 or systolic blood pressure >95mmHg DIPS: Levophed off Use dopamine if bradycardic and hypotensive fentanyl wean LINES: PIV GI & NUTRITION: Continue nutritional support Aspirations precautions Prokinetic agents and laxatives as needed Dietary for tube feeding recommendations KIDNEYS & ELECTROLYTES: Strict monitoring of intake and output Daily weights Avoid nephrotoxic agents Monitor electrolytes and replace as needed Goal urine output of 30mL/hr or 0.5mL/kg/hr ENDOCRINE: Maintain blood glucose between 100-180 at all times. Insulin sliding scale for blood glucose management INFECTIOUS DISEASE: Trend temperature. Patricio-culture if febrile. Micro: [ ] Blood cultures Urine culture Respiratory cultures Influenza a and B negative (patient is positive for influenza A) COVID-19 negative Antibiotics: Vancomycin and cefepime Add Flagyl Tamiflu HEMATOLOGY & COAGULATION: Monitor H&H. Keep Hgb > 7 Transfuse 1 unit of PRBC for Hgb < 7 Transfuse 1 pack of platelets of platelets < 20, 000 Watch for any signs and symptoms of bleeding SKIN: Pressure ulcer prevention per facility protocol Rehab: PT/OT Prophylaxis: GI: Protonix 30 mg IV push bid DVT: [Lovenox Code Status: Full Resuscitation Disposition: ICU Other: Total patient care time exceeds 35 minutes excluding all procedures. Case was discussed and seen with my supervising physician. The above plan was formulated and agreed upon. SHEY RENAE Aug 14, 2024 08:36
[2024-08-14] MEDS: diazePAM 5 MG TAB PO SCH (08:45)
[2024-08-14] MEDS: ASPIRIN 81 MG EC TAB PO SCH (08:46)
[2024-08-14] MEDS: monteLUKAST sodIUM 10 MG TAB PO SCH (08:47)
[2024-08-14] MEDS: atorVAStatin 10 MG TABLET PO SCH (08:47)
[2024-08-14] MEDS: furoSEMIDE 20MG VIAL IV ONE (08:47)
[2024-08-14] MEDS ORDERED: furoSEMIDE 40 MG TABLET PO SCH (09:00)
[2024-08-14] MEDS: miDODRine HCL 5 MG TABLET PO SCH (09:12)
[2024-08-14] MEDS: furoSEMIDE 20MG VIAL IV SCH (13:55)
[2024-08-15] VITALS (48 sets, daily range): BP systolic 90–147; BP diastolic 46–85; PULSE 41–77; RESP 14–25; TEMP 97.9–98.2; O2SAT 92–97
[2024-08-15 03:24] LABS: ABG BASE EXCESS 7.5 mmol/L (-2.0-3.0); ABG HCO3 36.2 mmol/L (21.0-28.0); ABG OXYGEN SATURATION 91.5 % (94.0-98.0); ABG PCO2 69 mmHg (35-48); ABG PH 7.337 (7.350-7.450); PO2, ARTERIAL BG 67.1 mmHg (83.0-108.0); VENT MODE, BG AC (ROOM AIR)
[2024-08-15 04:59] LABS: BASOPHILS # (AUTO) 0.01 K/uL (0.00-0.20); BASOPHILS % (AUTO) 0.2 % (0.0-5.0); HEMATOCRIT 41.7 % (42-54); IMMATURE GRANULOCYTE ABSOLUTE 0.02 K/uL (0-1); LYMPHOCYTES # (AUTO) 0.3 K/uL (1.0-4.8); LYMPHOCYTES % (AUTO) 5.6 % (21.0-51.0); MEAN CORPUSCULAR HEMOGLOBIN 29.4 pg (27.0-33.0); MEAN CORPUSCULAR HGB CONC 30.5 g/dL (32.0-36.0); MEAN CORPUSCULAR VOLUME 96.5 fL (79-99); MONOCYTES # (AUTO) 0.6 K/uL (0.1-1.0); MONOCYTES % (AUTO) 10.2 % (3.0-13.0); NEUTROPHILS # (AUTO) 4.9 K/uL (1.8-7.7); NEUTROPHILS % (AUTO) 83.7 % (40.0-77.0); PLATELET COUNT (AUTO) 129 K/uL (130-400); RED BLOOD CELL COUNT(AUTO) 4.32 MIL/uL (4.50-6.20); RED CELL DISTRIBUTION WIDTH 13.2 % (11.0-15.5); WHITE BLOOD COUNT (AUTO) 5.9 K/uL (4.8-10.8)
[2024-08-15 05:14] LABS: ALBUMIN 2.2 g/dL (3.5-5.0); BILIRUBIN,TOTAL 0.3 mg/dL (0.2-1.0); CREATININE 0.6 mg/dL (0.5-1.3); POTASSIUM 4.2 mmol/L (3.5-5.1); TOTAL PROTEIN, SERUM 5.9 g/dL (6.0-8.3)
[2024-08-15 05:48] LABS: B-TYPE NATRIURETIC PEPTIDE 31 pg/mL (0-100)
--- NOTE | 2024-08-15 08:20 | PN ---
[facility] PROGRESS NOTE Date Patient Seen: Aug 15, 2024 Time of Visit: 08:09 Supervising Physician: Rick Pillai MD Primary Care Physician: [Dr. Zafar Harris ] Outpatient Specialists: [ ] Inpatient Consults: [ ] PROBLEM LIST: Septic Shock POA requiring PRESSORS, resolved 2/2 Gram-positive cocci bacteremia, POA, on repeat neg BC (likely contamination) Acute on chronic hypoxic hypercapnic respiratory failure requiring vent support- POA Intubated POA Elevated D-Dimer Neg DVT Well score for PE 1.5 (Low Risk) Viral community-acquired pneumonia W/ superimposed aspiration Pneumonia -POA + Influenza A COPD/asthma/emphysema exacerbation-POA Constipation with frim abdomen r/o sbo Hypochloremia-POA Primary hypertension Diabetes mellitus HLD Chronic nicotine disorder Obstructive sleep apnea Polysubstance abuse with tobacco, cocaine and alcohol Fatty Liver Morbid obese, BMI 39.9 INTERVAL HISTORY: "Patient is unable to participate on the HPI due to intubated and sedated. Per ED notes:"The patient is a 59-year-old male with a history of COPD on chronic o2, emphysema, asthma, everyday smoker, diabetes and hypertension who presents to the emergency department with worsening shortness of breath onset 2 days ago. Patient reports occasional productive cough. Denies any fevers.Denies chest pain. Patient reports he was just discharged two days ago." According to the girlfriend at bedside, patient was doing well in the morning and in the afternoon until about 6:00 p.m. prior to admission when he started getting restless and having a lot of coughing and phlegm. Despite BiPAP treatment at the ED, he was not able to tolerate and blood gas continues to decline leading to intubation. " 08/12/24 AM rounds- patient is sedated with propofol and Versed drip, continues intubated. ABGs improving with a pH of 7.4 pCO2 of 57 PO2 of 205 and bicarb of 35. PF ratio 256. Ventilator settings adjusted to tidal volume of 450, respiratory rate of 26, 60% FiO2 and, peep down to 5. He was requiring minimal vasopressor support with Levophed at 0.04 micrograms/kilogram per minute, blood pressure 123/66 heart rate 58 respiratory rate of 26 O2 sat 98% with a FiO2 of 60%. Patient has Michele catheter with urine output of 350 mL this morning. patient is negative for influenza type a and B and COVID-19. WBCs 17.7 today H&H is similar to yesterday 12.8/42.6 with a platelet count that is 128 K slightly improving from yesterday which were 122 K. neutrophils 92.7 similar to yesterday. Chemistry BUN 18 creatinine 0.7 GFR of 105 kidneys are doing well glucose of 216 mg/dL we will adjust insulin total calcium 1.02 magnesium of 2.6. TSH is 0.48. On last chest x-ray approximately at 01:37 in the morning post intubation ET tube slightly above the aortic notch we will repeat chest x-ray at this time to evaluate placement on x-ray noted to have bilateral pulmonary infiltrates with pulmonary vascular congestion no pneumothorax noted. 08/13/24- Patient has a few episodes with high pressors overnight and he was sedated again with Versed at 10 milligrams/hour and fentanyl at 250 micrograms/kilogram per minute. This morning we can try switching over to Precedex instead of Versed in preparation for sedation vacation. He has been off Levophed early this morning but now back on minimal dose of 0.01 micrograms/kilogram per minute. Urine output 1.2 L in the last 24 hours with a positive balance of 2.2 L. No bowel movement. WBCs trending down 12.8 H&H is 12.3/40.4 platelet count is 630025 slightly lower than yesterday. Chemistries sodium 139 potassium is 5, carbon dioxide 37 BUN of 18 creatinine of 0.6 and GFR 110, kidneys are doing good. Glucose 112 mg/dL, liver enzymes normal, albumin 2.6 total protein 5.9 procalcitonin 0.32, BNP of 30, patient has spiked a fever overnight of 101.5. Chest x-ray improving, ET tube 4.4 cm above the chencho in good position, with bilateral pulmonary infiltrates, increased pulmonary vascular congestion. Venous Doppler done yesterday normal bilateral lower extremity venous Doppler without evidence of DVT. Pending CTA to rule out PE due to hypoxemia and elevated D-Dimer and on pressors. We will cover for aspiration pneumonia due to spiking fever with Flagyl. We will also panculture. 08/14/24-patient continues on mechanical ventilation and Levophed at 0.05 micrograms/kilogram per minute he is currently heavily sedated with fentanyl and Precedex. We will attempt to fentanyl and leave on Precedex only today. Latest ABGs with the improvement pH of 7.424/51/88.44/32.6. This is likely his baseline given that he was chronic respiratory failure and history of COPD. Patient's temperature is has been decreasing with a T-max of 101.5 yesterday and a T low of 99. I&O balance + 856 mL with a urine output of 1.9 L. WBCs have improved today 7.9 H&H is 12.9/40.6 with a platelet count of 773517 improving, neutrophils are going down as well today 86.9 from 90.1 yesterday. Chemistry kidneys are doing well creatinine 0.5 GFR 116 mg/dL. Procalcitonin is normal glucose 127 mg/dL. Yesterday's recheck of influenza came back positive for type a influenza. He has been started on Tamiflu. On microbiology : Blood cultures growing Gram-positive cocci . Pending final culture. Patient continues on vancomycin, cefepime and Flagyl. Chest x-ray with increased vascular congestion and pulmonary infiltrates. Starting Lasix 20 mg IV q.8 hours. 08/15/24- patient continues on a ventilator. He is easily arousable and following commands only on fentanyl drip at a 150 micrograms/kilogram per minute. Ventilator settings currently assist-control volume control tidal volume of 450 respiratory rate of 24 FiO2 of 70% and PEEP of 6. Those adjustments were made after reason ABG of pH of 7.33 pCO2 of 69 PO2 of 67.1 bicarb of 36.2 and FiO2 70%. Plateau pressure of 28. We will repeat ABG in 2 hours. Urine output 4.4 L with a balance of-2.7 L. WBCs are normal 5.9 H&H is 12.7/41.7 with a platelet count that is 129 K. Chemistry chloride is 100 carbon dioxide 36 BUN of 24. Kidneys are doing good creatinine 0.6 and GFR of 110. Decrease Lasix to 20 mg Q 24 hours IV push which is home dose of 40 mg p.o. Q 24H. Patient is pending chest x-ray for this morning. REVIEW OF SYSTEMS: Unable to perform due to patient intubated and sedated. PHYSICAL EXAM: GENERAL: Intubated, awake and following commands. HEENT: EOMI, Sclera non icteric, moist mucosa NECK: Short neck, no JVD, trachea midline LUNGS: rhonchi to left lobes, diminished to rt lower. breath sounds bilaterally. No wheezes HEART: Regular rate and rhythm. Normal S1 and S2, without murmurs ABD: Abdomen obese firm, nontender. Bowel sounds present EXT: No clubbing cyanosis or edema NEURO: Moving all extremities awake alert and following commands. Vital Signs (last 8hr) Date Time Temp Pulse Resp B/P (MAP) Pulse Ox O2 Delivery O2 Flow Rate FiO2 08/15/24 08:00 98.1 47 24 128/65 95 08/15/24 07:30 47 24 119/64 (82) 92 08/15/24 07:00 47 24 119/64 92 08/15/24 07:00 47 24 94/47 (63) 91 08/15/24 06:30 47 24 93/52 (66) 95 08/15/24 06:17 43 24 08/15/24 06:14 49 60 08/15/24 06:00 43 25 92/48 (63) 93 08/15/24 05:30 47 24 118/67 (84) 93 08/15/24 05:00 41 24 101/62 (75) 91 08/15/24 04:30 42 24 96/56 (69) 92 08/15/24 04:00 42 25 92/46 (61) 92 08/15/24 04:00 60 08/15/24 04:00 94 Ventilator+ 60 08/15/24 03:46 42 25 92/46 (61) 92 08/15/24 03:30 43 20 92/53 (66) 93 08/15/24 03:28 49 60 08/15/24 03:00 43 20 92/53 (66) 94 08/15/24 02:30 44 20 90/54 (66) 93 08/15/24 02:00 44 20 90/55 (67) 93 08/15/24 01:30 45 20 102/48 (66) 93 08/15/24 01:00 59 20 139/85 (103) 95 08/15/24 00:33 63 60 08/15/24 00:30 49 21 147/81 (103) 97 LABS: Hematology Labs: Test 08/15/24 04:48 08/14/24 05:12 Range/Units White Blood Count 5.9 # 4.8-10.8 K/uL Red Blood Count 4.32 L 4.50-6.20 MIL/uL Hemoglobin 12.7 L 14.0-18.0 g/dL Hematocrit 41.7 L 42-54 % Mean Corpuscular Volume 96.5 79-99 fL Mean Corpuscular Hemoglobin 29.4 27.0-33.0 pg Mean Corpuscular Hemoglobin Concent 30.5 L 32.0-36.0 g/dL Red Cell Distribution Width 13.2 11.0-15.5 % Platelet Count 129 L 130-400 K/uL Mean Platelet Volume 10.3 7.5-10.5 fL Immature Granulocyte % (Auto) 0.3 0-1 % Neutrophils (%) (Auto) 83.7 H 40.0-77.0 % Lymphocytes (%) (Auto) 5.6 L 21.0-51.0 % Monocytes (%) (Auto) 10.2 3.0-13.0 % Eosinophils (%) (Auto) 0.0 0.0-8.0 % Basophils (%) (Auto) 0.2 0.0-5.0 % Neutrophils # (Auto) 4.9 1.8-7.7 K/uL Lymphocytes # (Auto) 0.3 L 1.0-4.8 K/uL Monocytes # (Auto) 0.6 0.1-1.0 K/uL Eosinophils # (Auto) 0.00 0.00-0.70 K/uL Basophils # (Auto) 0.01 0.00-0.20 K/uL Absolute Immature Granulocyte (auto 0.02 0-1 K/uL Nucleated Red Blood Cells 0.0 0.0-0.19 % Red Blood Cell Morphology See comments White Cell Morphology Comment See comments Chemistry Labs: Test 08/15/24 04:48 08/15/24 00:47 08/14/24 05:12 Range/Units Sodium Level 140 136-145 mmol/L Potassium Level 4.2 3.5-5.1 mmol/L Chloride Level 100 L 101-111 mmol/L Carbon Dioxide Level 36 H 21-32 mmol/L Blood Urea Nitrogen 24 H 7-18 mg/dL Creatinine 0.6 0.5-1.3 mg/dL Glomerular Filtration Rate Calc 110 >90 mL/min Random Glucose 143 H 70-105 mg/dL Total Calcium 8.5 8.5-10.1 mg/dL Total Bilirubin 0.3 0.2-1.0 mg/dL Aspartate Amino Transf (AST/SGOT) 40 H 10-37 U/L Alanine Aminotransferase (ALT/SGPT) 32 12-78 U/L Alkaline Phosphatase 69 50-136 U/L B-Type Natriuretic Peptide 31 0-100 pg/mL Total Protein 5.9 L 6.0-8.3 g/dL Albumin 2.2 L 3.5-5.0 g/dL Whole Blood Glucose 154 H 70-110 MG/DL Hemoglobin A1c 5.8 4.0-6.0 % Estimated Average Glucose (eAG) 120 70-126 mg/dL Procalcitonin 0.20 0.05-0.5 ng/mL DIAGNOSTICS / RADIOLOGY RESULTS: [ ] PLAN -continue in ICU -titrate oxygen to keep saturation above 92%: -reinforce VAP prevention protocol -daily SBT as tolerated, Daily sedation vacations. Awake and following commands. Scheduled Valium 2 mg q.8 hours via NG tube. And Valium 4 mg q.8 hours p.r.n. Patient has not had a bowel movement abdomen is firm bowel sounds are hypoactive, KUB pending. -follow cultures -DuoNeb q.6 hours scheduled and p.r.n. for SOB/wheezing .-Mucomyst q.6 hours CPT Chest x-ray q.a.m. while intubated. -Q 2 hour turning and repositioning to prevent HAPI -smoking cessation education once fully awake - drug abuse education once awake. NEURO: Minimize central acting medications as possible. Fall Precautions. Well lighted room through the day and minimize interruptions through the night to prevent acute delirium. PULMONARY: Supplemental 02 as needed Titrate Fio2 to keep Spo2 > or = 90% DuoNebs and CPT as needed IS hourly while awake for pulmonary hygiene Out of bed to chair as tolerated VAP Bundle Current vent setting VT 450, rate 24 FiO2 70 %, Peep 6 PF Ratio 111 Plateau pressure 28 CARDIOVASCULAR: Follow hemodynamics. Titrate vasopressor to keep MAP >65 or systolic blood pressure >95mmHg DIPS: Levophed off Use dopamine if bradycardic and hypotensive fentanyl wean LINES: PIV GI & NUTRITION: Continue nutritional support Aspirations precautions Prokinetic agents and laxatives as needed Dietary for tube feeding recommendations KIDNEYS & ELECTROLYTES: Strict monitoring of intake and output Daily weights Avoid nephrotoxic agents Monitor electrolytes and replace as needed Goal urine output of 30mL/hr or 0.5mL/kg/hr ENDOCRINE: Maintain blood glucose between 100-180 at all times. Insulin sliding scale for blood glucose management INFECTIOUS DISEASE: Trend temperature. Patricio-culture if febrile. Micro: [ ] Blood cultures Urine culture Respiratory cultures Influenza a and B negative (patient is positive for influenza A) COVID-19 negative Antibiotics: Vancomycin and cefepime Add fluconazole Tamiflu HEMATOLOGY & COAGULATION: Monitor H&H. Keep Hgb > 7 Transfuse 1 unit of PRBC for Hgb < 7 Transfuse 1 pack of platelets of platelets < 20, 000 Watch for any signs and symptoms of bleeding SKIN: Pressure ulcer prevention per facility protocol Rehab: PT/OT Prophylaxis: GI: Protonix 30 mg IV push bid DVT: [Lovenox Code Status: Full Resuscitation Disposition: ICU Other: Total patient care time exceeds 35 minutes excluding all procedures. Case was discussed and seen with my supervising physician. The above plan was formulated and agreed upon. SHEY RENAE Aug 15, 2024 08:20
--- NOTE | 2024-08-15 09:03 | HMCIMG ---
ABD 1VW HISTORY: Small bowel obstruction COMPARISON: None FINDINGS: A frontal projection of the abdomen was obtained. Mild small bowel dilatation is seen. Fecal material is seen in the colon. Degenerative changes of the thoracolumbar spine are noted. IMPRESSION: 1. Mild small bowel dilatation.
[2024-08-15] MEDS: fluCONazole 200 MG/NS 100 ML 100 ML IV SCH (09:16)
[2024-08-15] MEDS: NYSTatin 15 GM POWDER TP SCH (09:16)
[2024-08-15] MEDS: polyETHYLene GLYCol 3350 17 GM POWD.PACK PO SCH (09:16)
[2024-08-15] MEDS: diazePAM 2 MG TAB PO SCH (09:17)
--- NOTE | 2024-08-15 09:28 | NUR ---
ERIC AYALA TO CALL WHEN AVAILABLE, SPOKE WITH KIAN IN REGARDS TO CT.
--- NOTE | 2024-08-15 10:06 | HMCIMG ---
CHEST 1VW HISTORY: Intubation COMPARISON: 08/14/2024 FINDINGS: A frontal projection of the chest was obtained. There are bilateral pulmonary infiltrates suggestive of pulmonary vascular congestion with possible superimposed pneumonitis. The heart is borderline enlarged. Degenerative changes are seen. No evidence of aortic calcification is seen. IMPRESSION: 1. Bilateral pulmonary infiltrates are seen suggestive of pulmonary vascular congestion with possible superimposed pneumonitis.
[2024-08-15 10:14] LABS: ABG BASE EXCESS 9.1 mmol/L (-2.0-3.0); ABG HCO3 33.7 mmol/L (21.0-28.0); ABG OXYGEN SATURATION 95.4 % (94.0-98.0); ABG PCO2 46 mmHg (35-48); ABG PH 7.487 (7.350-7.450); DEVICE COMMENT RN SYLVIA; PO2, ARTERIAL BG 72.1 mmHg (83.0-108.0); VENT MODE, BG AC (ROOM AIR)
[2024-08-15] MEDS: acetylCYSTeine 20% 200MG/ML 4ML VIAL IH SCH (11:09)
[2024-08-15] MEDS: diazePAM 2 MG TAB PO PRN (14:17)
--- NOTE | 2024-08-15 15:16 | NUR ---
PT BECAME RESTLESS AND AGITATED- DESPITE FENTANYL INFUSION. I HAVE ADDED DIPRIVAN DRIP FOR COMFORT. HE WAS ALSO DIAPHORETIC AND TACHYCARDIAC HR 110 . PT HAD ME CALL HIS FAMILY - SPOKE TO GIRLFRIEND MAURO AND HIS BROTHER CHRISTINE ON HIS BEHALF. THEY BOTH SAID THEY COULD NOT COME TO SEE HIM.
[2024-08-15] MEDS: atorVAStatin 10 MG TABLET PO SCH (20:20)
[2024-08-16] VITALS (66 sets, daily range): BP systolic 89–168; BP diastolic 47–74; PULSE 44–64; RESP 20–30; TEMP 97.6–99.1; O2SAT 93–98
[2024-08-16] MEDS: DOPamine HCL 400 MG/D5%-WATER 250 ML IV ONE (00:52)
[2024-08-16] MEDS: DOPamine HCL 400 MG/D5%-WATER 250 ML IV PRN (00:58)
[2024-08-16 04:11] LABS: BASOPHILS # (AUTO) 0.01 K/uL (0.00-0.20); BASOPHILS % (AUTO) 0.1 % (0.0-5.0); HEMATOCRIT 41.4 % (42-54); IMMATURE GRANULOCYTE ABSOLUTE 0.02 K/uL (0-1); LYMPHOCYTES # (AUTO) 0.4 K/uL (1.0-4.8); MEAN CORPUSCULAR HEMOGLOBIN 29.8 pg (27.0-33.0); MEAN CORPUSCULAR HGB CONC 30.9 g/dL (32.0-36.0); MEAN CORPUSCULAR VOLUME 96.3 fL (79-99); MONOCYTES # (AUTO) 0.8 K/uL (0.1-1.0); MONOCYTES % (AUTO) 11.3 % (3.0-13.0); NEUTROPHILS % (AUTO) 83.3 % (40.0-77.0); PLATELET COUNT (AUTO) 150 K/uL (130-400); RED CELL DISTRIBUTION WIDTH 13.3 % (11.0-15.5); WHITE BLOOD COUNT (AUTO) 7.2 K/uL (4.8-10.8)
[2024-08-16 04:30] LABS: B-TYPE NATRIURETIC PEPTIDE 22 pg/mL (0-100)
[2024-08-16 04:32] LABS: ABG BASE EXCESS 4.5 mmol/L (-2.0-3.0); ABG HCO3 30.9 mmol/L (21.0-28.0); ABG OXYGEN SATURATION 95.1 % (94.0-98.0); ABG PCO2 53 mmHg (35-48); ABG PH 7.387 (7.350-7.450); PO2, ARTERIAL BG 77.4 mmHg (83.0-108.0); VENT MODE, BG AC VC (ROOM AIR)
[2024-08-16 04:38] LABS: ALBUMIN 2.2 g/dL (3.5-5.0); BILIRUBIN,TOTAL 0.3 mg/dL (0.2-1.0); CREATININE 0.5 mg/dL (0.5-1.3); POTASSIUM 4.3 mmol/L (3.5-5.1); TOTAL PROTEIN, SERUM 5.8 g/dL (6.0-8.3)
[2024-08-16] MEDS: furoSEMIDE 20MG VIAL IV SCH ×3 (05:47→17:03)
--- NOTE | 2024-08-16 09:00 | PN ---
[facility] PROGRESS NOTE Date Patient Seen: Aug 16, 2024 Time of Visit: 09:00 Supervising Physician: Dr. Dasilva Primary Care Physician: [Dr. Zafar Harris ] Outpatient Specialists: [ ] Inpatient Consults: [ ] PROBLEM LIST: Septic Shock POA requiring PRESSORS, resolved 2/2 Gram-positive cocci bacteremia, POA, on repeat neg BC (likely contamination) Acute on chronic hypoxic hypercapnic respiratory failure requiring vent support- POA Intubated POA Elevated D-Dimer Neg DVT Well score for PE 1.5 (Low Risk) Viral community-acquired pneumonia + Influenza A W/ superimposed bacterial Pneumonia -POA 2nd to MSSA COPD/asthma/emphysema exacerbation-POA Constipation with firm abdomen r/o sbo Hypochloremia-POA Primary hypertension Diabetes mellitus HLD Chronic nicotine disorder Obstructive sleep apnea Polysubstance abuse with tobacco, cocaine and alcohol Fatty Liver Morbid obese, BMI 39.9 INTERVAL HISTORY: "Patient is unable to participate on the HPI due to intubated and sedated. Per ED notes:"The patient is a 59-year-old male with a history of COPD on chronic o2, emphysema, asthma, everyday smoker, diabetes and hypertension who presents to the emergency department with worsening shortness of breath onset 2 days ago. Patient reports occasional productive cough. Denies any fevers.Denies chest pain. Patient reports he was just discharged two days ago." According to the girlfriend at bedside, patient was doing well in the morning and in the afternoon until about 6:00 p.m. prior to admission when he started getting restless and having a lot of coughing and phlegm. Despite BiPAP treatment at the ED, he was not able to tolerate and blood gas continues to decline leading to intubation. " 08/12/24 AM rounds- patient is sedated with propofol and Versed drip, continues intubated. ABGs improving with a pH of 7.4 pCO2 of 57 PO2 of 205 and bicarb of 35. PF ratio 256. Ventilator settings adjusted to tidal volume of 450, respiratory rate of 26, 60% FiO2 and, peep down to 5. He was requiring minimal vasopressor support with Levophed at 0.04 micrograms/kilogram per minute, blood pressure 123/66 heart rate 58 respiratory rate of 26 O2 sat 98% with a FiO2 of 60%. Patient has Michele catheter with urine output of 350 mL this morning. patient is negative for influenza type a and B and COVID-19. WBCs 17.7 today H&H is similar to yesterday 12.8/42.6 with a platelet count that is 128 K slightly improving from yesterday which were 122 K. neutrophils 92.7 similar to yesterday. Chemistry BUN 18 creatinine 0.7 GFR of 105 kidneys are doing well glucose of 216 mg/dL we will adjust insulin total calcium 1.02 magnesium of 2.6. TSH is 0.48. On last chest x-ray approximately at 01:37 in the morning post intubation ET tube slightly above the aortic notch we will repeat chest x-ray at this time to evaluate placement on x-ray noted to have bilateral pulmonary infiltrates with pulmonary vascular congestion no pneumothorax noted. 08/13/24- Patient has a few episodes with high pressors overnight and he was sedated again with Versed at 10 milligrams/hour and fentanyl at 250 micrograms/kilogram per minute. This morning we can try switching over to Precedex instead of Versed in preparation for sedation vacation. He has been off Levophed early this morning but now back on minimal dose of 0.01 micrograms/kilogram per minute. Urine output 1.2 L in the last 24 hours with a positive balance of 2.2 L. No bowel movement. WBCs trending down 12.8 H&H is 12.3/40.4 platelet count is 289224 slightly lower than yesterday. Chemistries sodium 139 potassium is 5, carbon dioxide 37 BUN of 18 creatinine of 0.6 and GFR 110, kidneys are doing good. Glucose 112 mg/dL, liver enzymes normal, albumin 2.6 total protein 5.9 procalcitonin 0.32, BNP of 30, patient has spiked a fever overnight of 101.5. Chest x-ray improving, ET tube 4.4 cm above the chencho in good position, with bilateral pulmonary infiltrates, increased pulmonary vascular congestion. Venous Doppler done yesterday normal bilateral lower extremity venous Doppler without evidence of DVT. Pending CTA to rule out PE due to hypoxemia and elevated D-Dimer and on pressors. We will cover for aspiration pneumonia due to spiking fever with Flagyl. We will also panculture. 08/14/24-patient continues on mechanical ventilation and Levophed at 0.05 micrograms/kilogram per minute he is currently heavily sedated with fentanyl and Precedex. We will attempt to fentanyl and leave on Precedex only today. Latest ABGs with the improvement pH of 7.424/51/88.44/32.6. This is likely his baseline given that he was chronic respiratory failure and history of COPD. Patient's temperature is has been decreasing with a T-max of 101.5 yesterday and a T low of 99. I&O balance + 856 mL with a urine output of 1.9 L. WBCs have improved today 7.9 H&H is 12.9/40.6 with a platelet count of [id number] improving, neutrophils are going down as well today 86.9 from 90.1 yesterday. Chemistry kidneys are doing well creatinine 0.5 GFR 116 mg/dL. Procalcitonin is normal glucose 127 mg/dL. Yesterday's recheck of influenza came back positive for type a influenza. He has been started on Tamiflu. On microbiology : Blood cultures growing Gram-positive cocci . Pending final culture. Patient continues on vancomycin, cefepime and Flagyl. Chest x-ray with increased vascular congestion and pulmonary infiltrates. Starting Lasix 20 mg IV q.8 hours. 08/15/24- patient continues on a ventilator. He is easily arousable and following commands only on fentanyl drip at a 150 micrograms/kilogram per minute. Ventilator settings currently assist-control volume control tidal volume of 450 respiratory rate of 24 FiO2 of 70% and PEEP of 6. Those adjustments were made after reason ABG of pH of 7.33 pCO2 of 69 PO2 of 67.1 bicarb of 36.2 and FiO2 70%. Plateau pressure of 28. We will repeat ABG in 2 hours. Urine output 4.4 L with a balance of-2.7 L. WBCs are normal 5.9 H&H is 12.7/41.7 with a platelet count that is 129 K. Chemistry chloride is 100 carbon dioxide 36 BUN of 24. Kidneys are doing good c reatinine 0.6 and GFR of 110. Decrease Lasix to 20 mg Q 24 hours IV push which is home dose of 40 mg p.o. Q 24H. Patient is pending chest x-ray for this morning. 08/16/2024: At the time of my evaluation, the patient is lying in bed. The staff nurse reports no acute events overnight. Vital signs reviewed today showed of significance bradycardia in the 40s to 50s. He continues on ventilator support AC VC mode FiO2 of 60%, tidal volume 450 with a PEEP of eight and a PF ratio of 110. He continues on dopamine drip/fentanyl/propofol/Lasix/DuoNebs/Solu-Medrol/Tamiflu/cefepime. Laboratory data of significance showed no major changes on CBC. Chemistry panel shows stable electrolyte and renal parameters. We will cultures in progress and showed no growth. Otherwise, no other concerns. REVIEW OF SYSTEMS: Unable to perform due to patient intubated and sedated. PHYSICAL EXAM: GENERAL: Intubated, awake and following commands. HEENT: EOMI, Sclera non icteric, moist mucosa NECK: Short neck, no JVD, trachea midline LUNGS: rhonchi to left lobes, diminished to rt lower. breath sounds bilaterally. No wheezes HEART: Regular rate and rhythm. Normal S1 and S2, without murmurs ABD: Abdomen obese firm, nontender. Bowel sounds present EXT: No clubbing cyanosis or edema NEURO: Moving all extremities awake alert and following commands. Vital Signs (last 8hr) Date Time Temp Pulse Resp B/P (MAP) Pulse Ox O2 Delivery O2 Flow Rate FiO2 08/16/24 07:27 60 08/16/24 07:00 53 23 119/65 97 Ventilator 70 08/16/24 06:47 49 70 08/16/24 06:47 53 23 119/65 (83) 97 08/16/24 06:17 49 22 112/60 (77) 95 08/16/24 06:00 46 23 137/74 96 Ventilator 70 08/16/24 05:47 46 23 137/74 (95) 96 08/16/24 05:17 48 22 114/59 (77) 95 08/16/24 05:00 47 22 109/56 95 Ventilator 70 08/16/24 04:47 47 22 109/56 (73) 95 08/16/24 04:17 48 20 105/56 (72) 94 08/16/24 04:00 97 Ventilator+ 70 08/16/24 04:00 47 20 110/57 95 Ventilator 70 08/16/24 03:47 47 20 110/57 (74) 95 08/16/24 03:17 47 20 110/59 (76) 95 08/16/24 03:10 45 70 08/16/24 03:00 47 20 108/60 95 Ventilator 70 08/16/24 02:47 47 20 108/60 (76) 95 08/16/24 02:17 47 20 119/59 (79) 95 08/16/24 02:00 45 20 127/65 96 Ventilator 70 08/16/24 01:47 45 20 127/65 (85) 96 08/16/24 01:17 45 20 103/61 (75) 96 LABS: Hematology Labs: Test 08/16/24 03:56 08/15/24 04:48 Range/Units White Blood Count 7.2 4.8-10.8 K/uL Red Blood Count 4.30 L 4.50-6.20 MIL/uL Hemoglobin 12.8 L 14.0-18.0 g/dL Hematocrit 41.4 L 42-54 % Mean Corpuscular Volume 96.3 79-99 fL Mean Corpuscular Hemoglobin 29.8 27.0-33.0 pg Mean Corpuscular Hemoglobin Concent 30.9 L 32.0-36.0 g/dL Red Cell Distribution Width 13.3 11.0-15.5 % Platelet Count 150 130-400 K/uL Mean Platelet Volume 10.4 7.5-10.5 fL Immature Granulocyte % (Auto) 0.3 0-1 % Neutrophils (%) (Auto) 83.3 H 40.0-77.0 % Lymphocytes (%) (Auto) 5.0 L 21.0-51.0 % Monocytes (%) (Auto) 11.3 3.0-13.0 % Eosinophils (%) (Auto) 0.0 0.0-8.0 % Basophils (%) (Auto) 0.1 0.0-5.0 % Neutrophils # (Auto) 6.0 1.8-7.7 K/uL Lymphocytes # (Auto) 0.4 L 1.0-4.8 K/uL Monocytes # (Auto) 0.8 0.1-1.0 K/uL Eosinophils # (Auto) 0.00 0.00-0.70 K/uL Basophils # (Auto) 0.01 0.00-0.20 K/uL Absolute Immature Granulocyte (auto 0.02 0-1 K/uL Nucleated Red Blood Cells 0.0 0.0-0.19 % Red Blood Cell Morphology See comments Chemistry Labs: Test 08/16/24 05:43 08/16/24 03:56 Range/Units Whole Blood Glucose 176 H 70-110 MG/DL Sodium Level 139 136-145 mmol/L Potassium Level 4.3 3.5-5.1 mmol/L Chloride Level 100 L 101-111 mmol/L Carbon Dioxide Level 35 H 21-32 mmol/L Blood Urea Nitrogen 25 H 7-18 mg/dL Creatinine 0.5 0.5-1.3 mg/dL Glomerular Filtration Rate Calc 116 >90 mL/min Random Glucose 163 H 70-105 mg/dL Total Calcium 8.5 8.5-10.1 mg/dL Total Bilirubin 0.3 0.2-1.0 mg/dL Aspartate Amino Transf (AST/SGOT) 31 10-37 U/L Alanine Aminotransferase (ALT/SGPT) 27 12-78 U/L Alkaline Phosphatase 59 50-136 U/L B-Type Natriuretic Peptide 22 0-100 pg/mL Total Protein 5.8 L 6.0-8.3 g/dL Albumin 2.2 L 3.5-5.0 g/dL DIAGNOSTICS / RADIOLOGY RESULTS: [ ] PLAN 08/16/2024: For now, going to continue current management for the patient. I am going to increase the Lasix to 20 mg IV Q 8 hours we will also adjust frequency of the DuoNebs to acute for. Because of the persisting bradycardia, I am going to to request a EKG. We will continue to titrate ventilator settings to maintain SpO2 above 92%. At this time, the patient is not ready for SBT's. We will repeat a chest x-ray in the morning. Patient has not had a bowel movement, per the staff nurse, he administered a dose of MiraLax. We will continue to monitor for bowel activity. We will repeat a chest x-ray in the morning. Based on the microbiology data, the patient has a bacterial pneumonia secondary to MSSA, for this I am going to stop vanco and cefepime and start the patient on cefazolin 2 g q.8 hours. We will continue to provide general supportive care, GI and DVT prophylaxis. Further orders per attending MD and hospital course. NEURO: Minimize central acting medications as possible. Fall Precautions. Well lighted room through the day and minimize interruptions through the night to prevent acute delirium. PULMONARY: Supplemental 02 as needed Titrate Fio2 to keep Spo2 > or = 90% DuoNebs and CPT as needed IS hourly while awake for pulmonary hygiene Out of bed to chair as tolerated VAP Bundle Current vent setting VT 450, rate 24 FiO2 70 %, Peep 6 PF Ratio 110 Plateau pressure 28 CARDIOVASCULAR: Follow hemodynamics. Titrate vasopressor to keep MAP >65 or systolic blood pressure >95mmHg DIPS: Dopamine LINES: PIV GI & NUTRITION: Continue nutritional support Aspirations precautions Prokinetic agents and laxatives as needed Dietary for tube feeding recommendations KIDNEYS & ELECTROLYTES: Strict monitoring of intake and output Daily weights Avoid nephrotoxic agents Monitor electrolytes and replace as needed Goal urine output of 30mL/hr or 0.5mL/kg/hr ENDOCRINE: Maintain blood glucose between 100-180 at all times. Insulin sliding scale for blood glucose management INFECTIOUS DISEASE: Trend temperature. Patricio-culture if febrile. Micro: Sputum grew MSSA Blood cultures Urine culture Respiratory cultures Influenza a and B negative (patient is positive for influenza A) COVID-19 negative Antibiotics: Cefazolin Tamiflu HEMATOLOGY & COAGULATION: Monitor H&H. Keep Hgb > 7 Transfuse 1 unit of PRBC for Hgb < 7 Transfuse 1 pack of platelets of platelets < 20, 000 Watch for any signs and symptoms of bleeding SKIN: Pressure ulcer prevention per facility protocol Rehab: PT/OT Prophylaxis: GI: Protonix 30 mg IV push bid DVT: Lovenox Code Status: Full Resuscitation Disposition: ICU Other: Total patient care time exceeds 35 minutes excluding all procedures. Case was discussed and seen with my supervising physician. The above plan was formulated and agreed upon. MONAE FRANCIS NP Aug 16, 2024 09:00
--- NOTE | 2024-08-16 09:04 | HMCIMG ---
CHEST 1VW HISTORY: Intubated COMPARISON: 08/15/2024 FINDINGS: A frontal projection of the chest was obtained. There are bilateral pulmonary infiltrates suggestive of pulmonary vascular congestion with possible superimposed pneumonitis. Endotracheal tube is seen with distal tip at 3.6 cm above chencho. The heart is borderline enlarged. All the lines and tubes are again seen in place. Degenerative changes are seen. IMPRESSION: 1. Bilateral pulmonary infiltrates are seen suggestive of pulmonary vascular congestion with possible superimposed pneumonitis.
--- NOTE | 2024-08-16 09:30 | EKG ---
[facility] Test Date: 2024-08-16 Test Time: 09:30:28 Pat Name: CHRISTINE CURTIS Department: [facility] Room: 215 1 Gender: M Provider Relations Advocate: SHONDA : 1965 Requested By: MONAE FRANCIS Order Number: [id number] Reading MD: Phyllis Phan Measurements Intervals Home Rate: 56 P: 48 MI: 134 QRS: 5 QRSD: 94 T: 49 QT: 450 QTc: 434 Interpretive Statements Sinus rhythm Compared to ECG 08/11/2024 23:49:28 Sinus tachycardia no longer present Atrial premature complex(es) no longer present T-wave abnormality no longer present Possible ischemia no longer present Electronically Signed On 08-17-2024 08:10:46 [employer]Y [employer]IEF by Phyllis Phan Please click the below link to view image of tracing.
[2024-08-16] MEDS: IpraTROPium/alBUTERol SULFATE 3 ML SOLUTION IH ONE (10:23)
[2024-08-16] MEDS ORDERED: IpraTROPium/alBUTERol SULFATE 3 ML SOLUTION IH SCH (12:00)
--- NOTE | 2024-08-16 12:00 | NUR ---
ALL PREVIOUS IV SITES HAVE BEEN REMOVED DUE TO SOILING AND LEAKING OF BLOOD AROUND SITES. NEW FRESH SITES X 2 ESTABLISHED TO LEFT HAND AND LEFT WRIST.
--- NOTE | 2024-08-16 12:30 | NUR ---
Nutritional f/u Note: Chart, meds, and labs Reviewed. Pt remains or mech vent. Pt with possible fluid retention due to notable recent labs, wt gain and I&O imbalances (output 4.4L/day with net negative fluid balance. Nursing reports 100ml residuals at 20ml/hr. Current TF goal rate provides adequate calorie and protein needs; however residual volume and recent wt gain suggest possible delayed gastric emptying and fluid retention. Abnormal nutrition related labs: : k 3.3, phos 2.2, mg 1.60, alt 7, alk phos 161, tot protein 4.1, alb 1.7. Nutrition-related Meds: pt on Lasix Wt Status: current wt 111kg (+2kg since 08/12/24) Recommend: -Restart Tf advance rate 5ml q 8hrs to goal rate Vital Af @55ml/hr -Monitor residuals closely only hold if residuals are >500ml. -continue with 250ml H20 flush q 6 to prevent dehydration -Consider Reglan if medically feasible. -RD to provide further recommendations based on clinical progress. -Monitor PO intake%, wt, and labs -If No BM >3days consider bowel stimulant. - Please notify RD if additional nutrition concerns arise. Addendum: 08/16/24 at [address] Amended: Links added.
--- NOTE | 2024-08-16 14:00 | NUR ---
PT HAS BEEN GIVEN A COMPLETE BED BATH AND LINENS CHANGED. ORAL CARE /SRIDEVI CARE/SKIN CARE/MORALES CARE COMPLETED.
[2024-08-16] MEDS: acetylCYSTeine 20% 200MG/ML 4ML VIAL IH SCH (14:19)
[2024-08-16] MEDS: IpraTROPium/alBUTERol SULFATE 3 ML SOLUTION IH SCH (14:19)
[2024-08-16] MEDS: ceFAZolin SODIUM 2 GM VIAL IVPB SCH (18:23)
--- NOTE | 2024-08-16 18:55 | NUR ---
PT BEGAN TO BITE DOWN FORCEFULLY ON ET TUBE CAUSING HIGH PRESSURE VENT ALARMS AND DROP IN O2 SATURATION TO 88%- DOES NOT COOPERATE. SEDATION INCREASED - DIPRIVAN TO 40MCG/KG/MIN. ORAL AIRWAY PLACED . AIRWAY NOW PATENT. PT NOW SEDATED. V/S STABLE
--- NOTE | 2024-08-16 19:00 | NUR ---
HAND OFF REPORT GIVEN STEWART REYES
[2024-08-17] VITALS (96 sets, daily range): BP systolic 97–170; BP diastolic 47–91; PULSE 50–85; RESP 15–29; TEMP 96.9–99; O2SAT 94–96
[2024-08-17 03:44] LABS: ABG BASE EXCESS 9.6 mmol/L (-2.0-3.0); ABG HCO3 35.3 mmol/L (21.0-28.0); ABG PCO2 51 mmHg (35-48); ABG PH 7.458 (7.350-7.450); DEVICE COMMENT RR; VENT MODE, BG AC (ROOM AIR)
[2024-08-17 04:04] LABS: BASOPHILS # (AUTO) 0.01 K/uL (0.00-0.20); BASOPHILS % (AUTO) 0.1 % (0.0-5.0); HEMATOCRIT 44.2 % (42-54); IMMATURE GRANULOCYTE ABSOLUTE 0.02 K/uL (0-1); LYMPHOCYTES # (AUTO) 0.4 K/uL (1.0-4.8); LYMPHOCYTES % (AUTO) 5.8 % (21.0-51.0); MEAN CORPUSCULAR HEMOGLOBIN 29.9 pg (27.0-33.0); MEAN CORPUSCULAR HGB CONC 31.4 g/dL (32.0-36.0); MEAN CORPUSCULAR VOLUME 95.1 fL (79-99); MONOCYTES # (AUTO) 0.8 K/uL (0.1-1.0); MONOCYTES % (AUTO) 11.1 % (3.0-13.0); NEUTROPHILS # (AUTO) 5.8 K/uL (1.8-7.7); NEUTROPHILS % (AUTO) 82.7 % (40.0-77.0); PLATELET COUNT (AUTO) 160 K/uL (130-400); RED BLOOD CELL COUNT(AUTO) 4.65 MIL/uL (4.50-6.20); RED CELL DISTRIBUTION WIDTH 13.2 % (11.0-15.5)
[2024-08-17 04:19] LABS: ALBUMIN 2.4 g/dL (3.5-5.0); BILIRUBIN,TOTAL 0.3 mg/dL (0.2-1.0); CREATININE 0.6 mg/dL (0.5-1.3); POTASSIUM 3.7 mmol/L (3.5-5.1); TOTAL PROTEIN, SERUM 6.2 g/dL (6.0-8.3)
[2024-08-17] MEDS: PoTASSium chloRIDE 10MEQ/100ML 100 ML IV PRN (05:55)
[2024-08-17] MEDS ORDERED: PoTASSium chloRIDE 20MEQ ER 20 MEQ ERTAB PO PRN (08:00)
[2024-08-17] MEDS: FENTanyl 2500MCG+NS 250ML 250 ML IV SCH (08:01)
[2024-08-17] MEDS: PoTASSium chl 10% ELIXIR 20MEQ 20 MEQ/15 ML UDCUP PO PRN (08:15)
--- NOTE | 2024-08-17 08:55 | HMCIMG ---
CHEST 1VW HISTORY: Intubation COMPARISON: 08/16/2024 FINDINGS: A frontal projection of the chest was obtained. Bilateral pulmonary infiltrates are seen with left worse than right. Endotracheal tube is seen with distal tip at 4.2 cm above chencho. The heart is borderline enlarged. All the lines and tubes are again seen in place. No evidence of aortic calcification is seen. IMPRESSION: 1. Bilateral pulmonary infiltrates are seen suggestive of pulmonary vascular congestion with possible superimposed pneumonitis.
[2024-08-17] MEDS: LACTULOSE 20 GM/30 ML UDCUP PO SCH (12:31)
--- NOTE | 2024-08-17 13:55 | NUR ---
SPEECH TRIGGER COMPLETED (INTUBATION). Pt IS A 59 Y.O. MALE ADMITTED SECONDARY TO ACUTE ON CHRONIC HYPOXIC. Pt HAS A PAST MEDICAL HISTORY SIGNIFICANT FOR HYPERTENSION, DM, EVERYDAY SMOKER, EMPHYSEMA, COPD ON CHRONIC O2. Pt CURRENTLY INTUBATED AND ON TUBE FEEDINGS. PLEASE REQUEST [employer] FOR BEDSIDE SWALLOW EVALUATION 24 HOURS POST EXTUBATION IF ANY S/S OF ASPIRATION ARISE WITH ORAL INTAKE. MINE SAFETY DIRECTOR COORDINATED WITH NURSE PARMAR. ALL QUESTIONS ANSWERED AT THIS TIME. Addendum: 08/17/[address] [facility] Amended: Links added.
--- NOTE | 2024-08-17 17:15 | PN ---
[facility] PROGRESS NOTE Date Patient Seen: Aug 17, 2024 Time of Visit: 17:12 Supervising Physician: Dr. Dasilva Primary Care Physician: [Dr. Zafar Harris ] Outpatient Specialists: [ ] Inpatient Consults: [ ] PROBLEM LIST: Septic Shock POA requiring PRESSORS, resolved 2/2 Gram-positive cocci bacteremia, POA, on repeat neg BC (likely contamination) Acute on chronic hypoxic hypercapnic respiratory failure requiring vent support- POA Intubated POA Elevated D-Dimer Neg DVT Well score for PE 1.5 (Low Risk) Viral community-acquired pneumonia + Influenza A W/ superimposed bacterial Pneumonia -POA 2nd to MSSA COPD/asthma/emphysema exacerbation-POA Constipation with firm abdomen r/o sbo Hypochloremia-POA Primary hypertension Diabetes mellitus HLD Chronic nicotine disorder Obstructive sleep apnea Polysubstance abuse with tobacco, cocaine and alcohol Fatty Liver Morbid obese, BMI 39.9 INTERVAL HISTORY: "Patient is unable to participate on the HPI due to intubated and sedated. Per ED notes:"The patient is a 59-year-old male with a history of COPD on chronic o2, emphysema, asthma, everyday smoker, diabetes and hypertension who presents to the emergency department with worsening shortness of breath onset 2 days ago. Patient reports occasional productive cough. Denies any fevers.Denies chest pain. Patient reports he was just discharged two days ago." According to the girlfriend at bedside, patient was doing well in the morning and in the afternoon until about 6:00 p.m. prior to admission when he started getting restless and having a lot of coughing and phlegm. Despite BiPAP treatment at the ED, he was not able to tolerate and blood gas continues to decline leading to intubation. " 08/12/24 AM rounds- patient is sedated with propofol and Versed drip, continues intubated. ABGs improving with a pH of 7.4 pCO2 of 57 PO2 of 205 and bicarb of 35. PF ratio 256. Ventilator settings adjusted to tidal volume of 450, respiratory rate of 26, 60% FiO2 and, peep down to 5. He was requiring minimal vasopressor support with Levophed at 0.04 micrograms/kilogram per minute, blood pressure 123/66 heart rate 58 respiratory rate of 26 O2 sat 98% with a FiO2 of 60%. Patient has Michele catheter with urine output of 350 mL this morning. patient is negative for influenza type a and B and COVID-19. WBCs 17.7 today H&H is similar to yesterday 12.8/42.6 with a platelet count that is 128 K slightly improving from yesterday which were 122 K. neutrophils 92.7 similar to yesterday. Chemistry BUN 18 creatinine 0.7 GFR of 105 kidneys are doing well glucose of 216 mg/dL we will adjust insulin total calcium 1.02 magnesium of 2.6. TSH is 0.48. On last chest x-ray approximately at 01:37 in the morning post intubation ET tube slightly above the aortic notch we will repeat chest x-ray at this time to evaluate placement on x-ray noted to have bilateral pulmonary infiltrates with pulmonary vascular congestion no pneumothorax noted. 08/13/24- Patient has a few episodes with high pressors overnight and he was sedated again with Versed at 10 milligrams/hour and fentanyl at 250 micrograms/kilogram per minute. This morning we can try switching over to Precedex instead of Versed in preparation for sedation vacation. He has been off Levophed early this morning but now back on minimal dose of 0.01 micrograms/kilogram per minute. Urine output 1.2 L in the last 24 hours with a positive balance of 2.2 L. No bowel movement. WBCs trending down 12.8 H&H is 12.3/40.4 platelet count is 107904 slightly lower than yesterday. Chemistries sodium 139 potassium is 5, carbon dioxide 37 BUN of 18 creatinine of 0.6 and GFR 110, kidneys are doing good. Glucose 112 mg/dL, liver enzymes normal, albumin 2.6 total protein 5.9 procalcitonin 0.32, BNP of 30, patient has spiked a fever overnight of 101.5. Chest x-ray improving, ET tube 4.4 cm above the chencho in good position, with bilateral pulmonary infiltrates, increased pulmonary vascular congestion. Venous Doppler done yesterday normal bilateral lower extremity venous Doppler without evidence of DVT. Pending CTA to rule out PE due to hypoxemia and elevated D-Dimer and on pressors. We will cover for aspiration pneumonia due to spiking fever with Flagyl. We will also panculture. 08/14/24-patient continues on mechanical ventilation and Levophed at 0.05 micrograms/kilogram per minute he is currently heavily sedated with fentanyl and Precedex. We will attempt to fentanyl and leave on Precedex only today. Latest ABGs with the improvement pH of 7.424/51/88.44/32.6. This is likely his baseline given that he was chronic respiratory failure and history of COPD. Patient's temperature is has been decreasing with a T-max of 101.5 yesterday and a T low of 99. I&O balance + 856 mL with a urine output of 1.9 L. WBCs have improved today 7.9 H&H is 12.9/40.6 with a platelet count of 340538 improving, neutrophils are going down as well today 86.9 from 90.1 yesterday. Chemistry kidneys are doing well creatinine 0.5 GFR 116 mg/dL. Procalcitonin is normal glucose 127 mg/dL. Yesterday's recheck of influenza came back positive for type a influenza. He has been started on Tamiflu. On microbiology : Blood cultures growing Gram-positive cocci . Pending final culture. Patient continues on vancomycin, cefepime and Flagyl. Chest x-ray with increased vascular congestion and pulmonary infiltrates. Starting Lasix 20 mg IV q.8 hours. 08/15/24- patient continues on a ventilator. He is easily arousable and following commands only on fentanyl drip at a 150 micrograms/kilogram per minute. Ventilator settings currently assist-control volume control tidal volume of 450 respiratory rate of 24 FiO2 of 70% and PEEP of 6. Those adjustments were made after reason ABG of pH of 7.33 pCO2 of 69 PO2 of 67.1 bicarb of 36.2 and FiO2 70%. Plateau pressure of 28. We will repeat ABG in 2 hours. Urine output 4.4 L with a balance of-2.7 L. WBCs are normal 5.9 H&H is 12.7/41.7 with a platelet count that is 129 K. Chemistry chloride is 100 carbon dioxide 36 BUN of 24. Kidneys are doing good c reatinine 0.6 and GFR of 110. Decrease Lasix to 20 mg Q 24 hours IV push which is home dose of 40 mg p.o. Q 24H. Patient is pending chest x-ray for this morning. 08/16/2024: At the time of my evaluation, the patient is lying in bed. The staff nurse reports no acute events overnight. Vital signs reviewed today showed of significance bradycardia in the 40s to 50s. He continues on ventilator support AC VC mode FiO2 of 60%, tidal volume 450 with a PEEP of eight and a PF ratio of 110. He continues on dopamine drip/fentanyl/propofol/Lasix/DuoNebs/Solu-Medrol/Tamiflu/cefepime. Laboratory data of significance showed no major changes on CBC. Chemistry panel shows stable electrolyte and renal parameters. We will cultures in progress and showed no growth. Otherwise, no other concerns. 08/17/2024: At the time of my evaluation, the patient was lying in bed. The staff nurse reports no acute events overnight. Vital signs today, showed stable readings. Laboratory data showed a WBC 7.0, hemoglobin 13.9, hematocrit of 44.2 and a platelet count of 160. Chemistry shows sodium 141, potassium 3.7, chloride 99 BUN 20 creatinine of 0.6 total protein of 6.2 and albumin of 2.4. He continues on dopamine/fentanyl/propofol/Lasix/DuoNebs/Solu- Medrol/Tamiflu/cefazolin. Imaging today showed same bilateral pulmonary infiltrates with pulmonary vascular congestion and superimposed pneumonitis but improved compared to yesterday. Urine output overnight was 5000 mL the patient still has not had no bowel movement. No new complaint. REVIEW OF SYSTEMS: Unable to perform due to patient intubated and sedated. PHYSICAL EXAM: GENERAL: Intubated, awake and following commands. HEENT: EOMI, Sclera non icteric, moist mucosa NECK: Short neck, no JVD, trachea midline LUNGS: rhonchi to left lobes, diminished to rt lower. breath sounds bilaterally. No wheezes HEART: Regular rate and rhythm. Normal S1 and S2, without murmurs ABD: Abdomen obese firm, nontender. Bowel sounds present EXT: No clubbing cyanosis or edema NEURO: Moving all extremities awake alert and following commands. Vital Signs (last 8hr) Date Time Temp Pulse Resp B/P (MAP) Pulse Ox O2 Delivery O2 Flow Rate FiO2 08/17/24 17:00 69 22 102/60 (74) 93 08/17/24 16:45 69 24 170/73 (105) 95 08/17/24 16:30 63 21 99/47 (64) 93 08/17/24 16:15 58 19 160/67 (98) 95 08/17/24 16:00 84 15 134/76 (95) 98 08/17/24 15:45 54 26 149/51 (83) 96 08/17/24 15:30 55 22 103/57 (72) 97 08/17/24 15:17 54 22 08/17/24 15:15 56 22 104/59 (74) 97 08/17/24 15:15 54 60 08/17/24 15:00 52 22 97/54 (68) 95 08/17/24 14:45 52 22 97/56 (70) 95 08/17/24 14:30 54 23 105/58 (74) 95 08/17/24 14:27 97/54 08/17/24 14:15 54 22 102/60 (74) 95 08/17/24 14:00 53 22 99/58 (72) 95 08/17/24 13:45 56 22 103/57 (72) 95 08/17/24 13:30 56 22 107/59 (75) 94 08/17/24 13:27 122/70 08/17/24 13:15 73 29 122/70 (87) 97 08/17/24 13:00 53 22 105/54 (71) 94 08/17/24 12:45 56 22 105/57 (73) 94 08/17/24 12:30 57 23 106/55 (72) 95 08/17/24 12:15 57 22 103/54 (70) 95 08/17/24 12:11 57 60 08/17/24 12:00 56 22 129/62 (84) 95 60 08/17/24 12:00 95 Ventilator+ 60 08/17/24 12:00 60 08/17/24 11:45 58 22 105/57 (73) 94 08/17/24 11:30 57 22 104/52 (69) 95 08/17/24 11:15 57 22 111/54 (73) 95 08/17/24 11:00 60 22 102/50 (67) 97 08/17/24 10:45 55 22 111/63 (79) 95 08/17/24 10:45 54 22 08/17/24 10:30 53 23 114/67 (83) 94 08/17/24 10:15 54 22 107/65 (79) 95 08/17/24 10:00 55 22 113/67 (82) 95 08/17/24 09:55 54 60 08/17/24 09:45 56 22 108/67 (81) 94 08/17/24 09:30 57 23 110/65 (80) 94 08/17/24 09:15 59 22 117/68 (84) 94 LABS: Hematology Labs: Test 08/17/24 03:51 Range/Units White Blood Count 7.0 4.8-10.8 K/uL Red Blood Count 4.65 4.50-6.20 MIL/uL Hemoglobin 13.9 L 14.0-18.0 g/dL Hematocrit 44.2 42-54 % Mean Corpuscular Volume 95.1 79-99 fL Mean Corpuscular Hemoglobin 29.9 27.0-33.0 pg Mean Corpuscular Hemoglobin Concent 31.4 L 32.0-36.0 g/dL Red Cell Distribution Width 13.2 11.0-15.5 % Platelet Count 160 130-400 K/uL Mean Platelet Volume 10.0 7.5-10.5 fL Immature Granulocyte % (Auto) 0.3 0-1 % Neutrophils (%) (Auto) 82.7 H 40.0-77.0 % Lymphocytes (%) (Auto) 5.8 L 21.0-51.0 % Monocytes (%) (Auto) 11.1 3.0-13.0 % Eosinophils (%) (Auto) 0.0 0.0-8.0 % Basophils (%) (Auto) 0.1 0.0-5.0 % Neutrophils # (Auto) 5.8 1.8-7.7 K/uL Lymphocytes # (Auto) 0.4 L 1.0-4.8 K/uL Monocytes # (Auto) 0.8 0.1-1.0 K/uL Eosinophils # (Auto) 0.00 0.00-0.70 K/uL Basophils # (Auto) 0.01 0.00-0.20 K/uL Absolute Immature Granulocyte (auto 0.02 0-1 K/uL Nucleated Red Blood Cells 0.0 0.0-0.19 % Chemistry Labs: Test 08/17/24 16:53 08/17/24 03:51 08/16/24 03:56 Range/Units Whole Blood Glucose 140 H 70-110 MG/DL Sodium Level 141 136-145 mmol/L Potassium Level 3.7 3.5-5.1 mmol/L Chloride Level 99 L 101-111 mmol/L Carbon Dioxide Level 39 H 21-32 mmol/L Blood Urea Nitrogen 20 H 7-18 mg/dL Creatinine 0.6 0.5-1.3 mg/dL Glomerular Filtration Rate Calc 110 >90 mL/min Random Glucose 182 H 70-105 mg/dL Total Calcium 8.5 8.5-10.1 mg/dL Total Bilirubin 0.3 0.2-1.0 mg/dL Aspartate Amino Transf (AST/SGOT) 20 10-37 U/L Alanine Aminotransferase (ALT/SGPT) 26 12-78 U/L Alkaline Phosphatase 57 50-136 U/L Total Protein 6.2 6.0-8.3 g/dL Albumin 2.4 L 3.5-5.0 g/dL B-Type Natriuretic Peptide 22 0-100 pg/mL DIAGNOSTICS / RADIOLOGY RESULTS: [ ] PLAN 08/16/2024: For now, going to continue current management for the patient. I am going to increase the Lasix to 20 mg IV Q 8 hours we will also adjust frequency of the DuoNebs to acute for. Because of the persisting bradycardia, I am going to to request a EKG. We will continue to titrate ventilator settings to maintain SpO2 above 92%. At this time, the patient is not ready for SBT's. We will repeat a chest x-ray in the morning. Patient has not had a bowel movement, per the staff nurse, he administered a dose of MiraLax. We will continue to monitor for bowel activity. We will repeat a chest x-ray in the morning. Based on the microbiology data, the patient has a bacterial pneumonia secondary to MSSA, for this I am going to stop vanco and cefepime and start the patient on cefazolin 2 g q.8 hours. We will continue to provide general supportive care, GI and DVT prophylaxis. Further orders per attending MD and hospital course. 08/17/2024: For now, going to continue current management for the patient. I am going to continue with Lasix as ordered and bronchodilator therapy. At this time, the patient is still not ready for SBT's. We will repeat a chest x-ray in the morning. I am going to start the patient on lactulose daily per the OGT until he has a bowel movement then we will continue with p.r.n. We will continue to monitor for bowel activity. We will repeat a chest x-ray in the morning. We will continue with antibiotic therapy as ordered. We will continue to provide general supportive care, GI and DVT prophylaxis. Further orders per attending MD and hospital course. NEURO: Minimize central acting medications as possible. Fall Precautions. Well lighted room through the day and minimize interruptions through the night to prevent acute delirium. PULMONARY: Supplemental 02 as needed Titrate Fio2 to keep Spo2 > or = 90% DuoNebs and CPT as needed IS hourly while awake for pulmonary hygiene Out of bed to chair as tolerated VAP Bundle Current vent setting VT 450, rate 24 FiO2 70 %, Peep 6 PF Ratio 120 CARDIOVASCULAR: Follow hemodynamics. Titrate vasopressor to keep MAP >65 or systolic blood pressure >95mmHg DIPS: Dopamine LINES: PIV GI & NUTRITION: Continue nutritional support Aspirations precautions Prokinetic agents and laxatives as needed Dietary for tube feeding recommendations KIDNEYS & ELECTROLYTES: Strict monitoring of intake and output Daily weights Avoid nephrotoxic agents Monitor electrolytes and replace as needed Goal urine output of 30mL/hr or 0.5mL/kg/hr ENDOCRINE: Maintain blood glucose between 100-180 at all times. Insulin sliding scale for blood glucose management INFECTIOUS DISEASE: Trend temperature. Patricio-culture if febrile. Micro: Sputum grew MSSA Blood cultures Urine culture Respiratory cultures Influenza a and B negative (patient is positive for influenza A) COVID-19 negative Antibiotics: Cefazolin Tamiflu HEMATOLOGY & COAGULATION: Monitor H&H. Keep Hgb > 7 Transfuse 1 unit of PRBC for Hgb < 7 Transfuse 1 pack of platelets of platelets < 20, 000 Watch for any signs and symptoms of bleeding SKIN: Pressure ulcer prevention per facility protocol Rehab: PT/OT Prophylaxis: GI: Protonix 30 mg IV push bid DVT: Lovenox Code Status: Full Resuscitation Disposition: ICU Other: Total patient care time exceeds 45 minutes excluding all procedures. Case was discussed and seen with my supervising physician. The above plan was formulated and agreed upon. MONAE FRANCIS NP Aug 17, 2024 17:14
--- NOTE | 2024-08-17 17:51 | HMCIMG ---
CHEST 1VW HISTORY: Failed central line attempt COMPARISON: 08/17/2024 FINDINGS: A frontal projection of the chest was obtained. Mild bilateral pulmonary infiltrates are seen may be related to mild pulmonary vascular congestion with possible superimposed pneumonitis. Endotracheal tube is seen with distal tip at 4.2 cm above chencho. No pneumothorax is seen. The heart is borderline enlarged. All the lines and tubes are again seen in place. No evidence of aortic calcification is seen. IMPRESSION: 1. Mild bilateral pulmonary infiltrates are seen may be related to mild pulmonary vascular congestion with possible superimposed pneumonitis.
--- NOTE | 2024-08-17 22:14 | HMCIMG ---
CHEST 1VW HISTORY: Pneumonia COMPARISON: 08/17/2024 FINDINGS: A frontal projection of the chest was obtained. Mild bilateral pulmonary infiltrates are seen may be related to mild pulmonary vascular congestion with possible superimposed pneumonitis. The heart is borderline enlarged. All the lines and tubes are again seen in place. No evidence of aortic calcification is seen. IMPRESSION: 1. Mild bilateral pulmonary infiltrates are seen may be related to mild pulmonary vascular congestion with possible superimposed pneumonitis.
[2024-08-18] VITALS (103 sets, daily range): BP systolic 91–140; BP diastolic 49–76; PULSE 48–71; RESP 8–123; TEMP 97–99.5; O2SAT 92–95
[2024-08-18 04:45] LABS: BASOPHILS # (AUTO) 0.01 K/uL (0.00-0.20); BASOPHILS % (AUTO) 0.1 % (0.0-5.0); IMMATURE GRANULOCYTE ABSOLUTE 0.05 K/uL (0-1); LYMPHOCYTES # (AUTO) 0.9 K/uL (1.0-4.8); LYMPHOCYTES % (AUTO) 12.1 % (21.0-51.0); MEAN CORPUSCULAR HEMOGLOBIN 29.5 pg (27.0-33.0); MEAN CORPUSCULAR HGB CONC 30.7 g/dL (32.0-36.0); MONOCYTES # (AUTO) 0.7 K/uL (0.1-1.0); MONOCYTES % (AUTO) 9.5 % (3.0-13.0); NEUTROPHILS # (AUTO) 5.7 K/uL (1.8-7.7); NEUTROPHILS % (AUTO) 77.6 % (40.0-77.0); PLATELET COUNT (AUTO) 178 K/uL (130-400); RED BLOOD CELL COUNT(AUTO) 4.48 MIL/uL (4.50-6.20); RED CELL DISTRIBUTION WIDTH 13.2 % (11.0-15.5); WHITE BLOOD COUNT (AUTO) 7.4 K/uL (4.8-10.8)
[2024-08-18 04:59] LABS: CREATININE 0.5 mg/dL (0.5-1.3); POTASSIUM 3.8 mmol/L (3.5-5.1)
[2024-08-18 05:02] LABS: INR <= 0.93 (0.85-1.15); PROTHROMBIN TIME 9.9 SEC (9.6-11.6)
[2024-08-18] MEDS: acetylCYSTeine 20% 200MG/ML 4ML VIAL ONE (06:44)
[2024-08-18] MEDS: IpraTROPium/alBUTERol SULFATE 3 ML SOLUTION IH ONE ×2 (06:44→09:17)
--- NOTE | 2024-08-18 10:37 | PN ---
[facility] PROGRESS NOTE Date Patient Seen: Aug 18, 2024 Time of Visit: 10:37 Supervising Physician: Dr. Cervantes Primary Care Physician: [Dr. Zafar Harris ] Outpatient Specialists: [ ] Inpatient Consults: [ ] PROBLEM LIST: Septic Shock POA requiring PRESSORS, resolved 2/2 Gram-positive cocci bacteremia, POA, on repeat neg BC (likely contamination) Acute on chronic hypoxic hypercapnic respiratory failure requiring vent support- POA Intubated POA Elevated D-Dimer Neg DVT Well score for PE 1.5 (Low Risk) Viral community-acquired pneumonia + Influenza A W/ superimposed bacterial P neumonia -POA 2nd to MSSA COPD/asthma/emphysema exacerbation-POA Constipation with firm abdomen r/o sbo Hypochloremia-POA Primary hypertension Diabetes mellitus HLD Chronic nicotine disorder Obstructive sleep apnea Polysubstance abuse with tobacco, cocaine and alcohol Fatty Liver Morbid obese, BMI 39.9 INTERVAL HISTORY: "Patient is unable to participate on the HPI due to intubated and sedated. Per ED notes:"The patient is a 59-year-old male with a history of COPD on chronic o 2, emphysema, asthma, everyday smoker, diabetes and hypertension who presents to the emergency department with worsening shortness of breath onset 2 days ago. Patient reports occasional productive cough. Denies any fevers.Denies chest pain. Patient reports he was just discharged two days ago." According to the girlfriend at bedside, patient was doing well in the morning and in the afternoon until about 6:00 p.m. prior to admission when he started getting restless and having a lot of coughing and phlegm. Despite BiPAP treatment at the ED, he was not able to tolerate and blood gas continues to decline leading to intubation. " 08/12/24 AM rounds- patient is sedated with propofol and Versed drip, continues intubated. ABGs improving with a pH of 7.4 pCO2 of 57 PO2 of 205 and bicarb of 35. PF ratio 256. Ventilator settings adjusted to tidal volume of 450, respiratory rate of 26, 60% FiO2 and, peep down to 5. He was requiring minimal vasopressor support with Levophed at 0.04 micrograms/kilogram per minute, blood pressure 123/66 heart rate 58 respiratory rate of 26 O2 sat 98% with a FiO2 of 60%. Patient has Michele catheter with urine output of 350 mL this morning. patient is negative for influenza type a and B and COVID-19. WBCs 17.7 today H&H is similar to yesterday 12.8/42.6 with a platelet count that is 128 K slightly improving from yesterday which were 122 K. neutrophils 92.7 similar to yesterday. Chemistry BUN 18 creatinine 0.7 GFR of 105 kidneys are doing well glucose of 216 mg/dL we will adjust insulin total calcium 1.02 magnesium of 2.6. TSH is 0.48. On last chest x-ray approximately at 01:37 in the morning post intubation ET tube slightly above the aortic notch we will repeat chest x-ray at this time to evaluate placement on x-ray noted to have bilateral pulmonary infiltrates with pulmonary vascular congestion no pneumothorax noted. 08/13/24- Patient has a few episodes with high pressors overnight and he was sedated again with Versed at 10 milligrams/hour and fentanyl at 250 micrograms/kilogram per minute. This morning we can try switching over to Precedex instead of Versed in preparation for sedation vacation. He has been o ff Levophed early this morning but now back on minimal dose of 0.01 micrograms/kilogram per minute. Urine output 1.2 L in the last 24 hours with a positive balance of 2.2 L. No bowel movement. WBCs trending down 12.8 H&H is 12.3/40.4 platelet count is [id number] slightly lower than yesterday. Chemistries sodium 139 potassium is 5, carbon dioxide 37 BUN of 18 creatinine of 0.6 and GFR 110, kidneys are doing good. Glucose 112 mg/dL, liver enzymes normal, albumin 2.6 total protein 5.9 procalcitonin 0.32, BNP of 30, patient has spiked a fever overnight of 101.5. Chest x-ray improving, ET tube 4.4 cm above the chencho in good position, with bilateral pulmonary infiltrates, increased pulmonary vascular congestion. Venous Doppler done yesterday normal bilateral lower extremity venous Doppler without evidence of DVT. Pending CTA to rule out PE due to hypoxemia and elevated D-Dimer and on p ressors. We will cover for aspiration pneumonia due to spiking fever with Flagyl. We will also panculture. 08/14/24-patient continues on mechanical ventilation and Levophed at 0.05 micrograms/kilogram per minute he is currently heavily sedated with fentanyl and Precedex. We will attempt to fentanyl and leave on Precedex only today. Latest ABGs with the improvement pH of 7.424/51/88.44/32.6. This is likely his baseline given that he was chronic respiratory failure and history of COPD. Patient's temperature is has been decreasing with a T-max of 101.5 yesterday and a T low of 99. I&O balance + 856 mL with a urine output of 1.9 L. WBCs have improved today 7.9 H&H is 12.9/40.6 with a platelet count of [id number] improving, neutrophils are going down as well today 86.9 from 90.1 yesterday. Chemistry kidneys are doing well creatinine 0.5 GFR 116 mg/dL. Procalcitonin is normal glucose 127 mg/dL. Yesterday's recheck of influenza came back positive for type a influenza. He has been started on Tamiflu. On microbiology : Blood cultures growing Gram-positive cocci . Pending final culture. Patient continues on vancomycin, cefepime and Flagyl. Chest x-ray with increased vascular congestion and pulmonary infiltrates. Starting Lasix 20 mg IV q.8 hours. 08/15/24- patient continues on a ventilator. He is easily arousable and following commands only on fentanyl drip at a 150 micrograms/kilogram per minute. Ventilator settings currently assist-control volume control tidal volume of 450 respiratory rate of 24 FiO2 of 70% and PEEP of 6. Those adjustments were made after reason ABG of pH of 7.33 pCO2 of 69 PO2 of 67.1 bicarb of 36.2 and FiO2 70%. Plateau pressure of 28. We will repeat ABG in 2 hours. Urine output 4.4 L with a balance of-2.7 L. WBCs are normal 5.9 H&H is 12.7/41.7 with a platelet count that is 129 K. Chemistry chloride is 100 carbon dioxide 36 BUN of 24. Kidneys are doing good creatinine 0.6 and GFR of 110. Decrease Lasix to 20 mg Q 24 hours IV push which is home dose of 40 mg p.o. Q 24H. Patient is pending chest x-ray for this morning. 08/16/2024: At the time of my evaluation, the patient is lying in bed. The staff nurse reports no acute events overnight. Vital signs reviewed today showed of significance bradycardia in the 40s to 50s. He continues on ventilator support AC VC mode FiO2 of 60%, tidal volume 450 with a PEEP of eight and a PF ratio of 110. He continues on dopamine drip/fentanyl/propofol/Lasix/DuoNebs/Solu-Medrol/Tamiflu/cefepime. Laboratory data of significance showed no major changes on CBC. Chemistry panel shows stable electrolyte and renal parameters. We will cultures in progress and showed no growth. Otherwise, no other concerns. 08/17/2024: At the time of my evaluation, the patient was lying in bed. The staff nurse reports no acute events overnight. Vital signs today, showed stable readings. Laboratory data showed a WBC 7.0, hemoglobin 13.9, hematocrit of 44.2 and a platelet count of 160. Chemistry shows sodium 141, potassium 3.7, chloride 99 BUN 20 creatinine of 0.6 total protein of 6.2 and albumin of 2.4. He continues on dopamine/fentanyl/propofol/Lasix/DuoNebs/Solu- Medrol/Tamiflu/cefazolin. Imaging today showed same bilateral pulmonary infiltrates with pulmonary vascular congestion and superimposed pneumonitis but improved compared to yesterday. Urine output overnight was 5000 mL the patient still has not had no bowel movement. No new complaint. 06/18/2025: At the time of my evaluation, the patient was lying in bed. He remains intubated and sedated. Laboratory data did not show major changes. Cultures are in progress. Patient continues on antibiotic therapy as ordered. Imaging today still showing bilateral pulmonary infiltrates with superimposed pneumonitis. No other complaint. REVIEW OF SYSTEMS: Unable to perform due to patient intubated and sedated. PHYSICAL EXAM: GENERAL: Intubated, awake and following commands. HEENT: EOMI, Sclera non icteric, moist mucosa NECK: Short neck, no JVD, trachea midline LUNGS: rhonchi to left lobes, diminished to rt lower. breath sounds bilaterally. No wheezes HEART: Regular rate and rhythm. Normal S1 and S2, without murmurs ABD: Abdomen obese firm, nontender. Bowel sounds present EXT: No clubbing cyanosis or edema NEURO: Moving all extremities awake alert and following commands. Vital Signs (last 8hr) Date Time Temp Pulse Resp B/P (MAP) Pulse Ox O2 Delivery O2 Flow Rate FiO2 08/18/24 09:21 55 22 08/18/24 09:17 55 60 08/18/24 07:00 54 22 116/57 (76) 94 08/18/24 06:50 51 22 08/18/24 06:45 54 60 08/18/24 06:45 52 22 122/66 (84) 94 08/18/24 06:30 58 22 101/54 (70) 91 08/18/24 06:15 48 24 114/59 (77) 93 60 08/18/24 06:00 49 18 101/53 (69) 93 60 08/18/24 05:45 50 15 93/50 (64) 93 60 08/18/24 05:30 50 9 95/50 (65) 93 60 08/18/24 05:15 51 15 99/49 (66) 94 60 08/18/24 05:00 55 8 108/58 (75) 93 60 08/18/24 04:45 63 22 91/55 (67) 91 60 08/18/24 04:30 54 91 60 08/18/24 04:15 50 22 111/67 (82) 94 60 08/18/24 04:00 98.2 08/18/24 04:00 98.2 50 22 110/63 (79) 94 60 08/18/24 04:00 93 Ventilator+ 60 08/18/24 03:45 50 23 106/55 (72) 94 08/18/24 03:30 51 22 104/56 (72) 94 08/18/24 03:20 53 22 08/18/24 03:15 51 22 101/56 (71) 94 08/18/24 03:15 51 60 08/18/24 03:00 51 22 104/54 (71) 94 08/18/24 02:45 50 22 99/55 (70) 94 LABS: Hematology Labs: Test 08/18/24 04:15 Range/Units White Blood Count 7.4 4.8-10.8 K/uL Red Blood Count 4.48 L 4.50-6.20 MIL/uL Hemoglobin 13.2 L 14.0-18.0 g/dL Hematocrit 43.0 42-54 % Mean Corpuscular Volume 96.0 79-99 fL Mean Corpuscular Hemoglobin 29.5 27.0-33.0 pg Mean Corpuscular Hemoglobin Concent 30.7 L 32.0-36.0 g/dL Red Cell Distribution Width 13.2 11.0-15.5 % Platelet Count 178 130-400 K/uL Mean Platelet Volume 10.3 7.5-10.5 fL Immature Granulocyte % (Auto) 0.7 0-1 % Neutrophils (%) (Auto) 77.6 H 40.0-77.0 % Lymphocytes (%) (Auto) 12.1 L 21.0-51.0 % Monocytes (%) (Auto) 9.5 3.0-13.0 % Eosinophils (%) (Auto) 0.0 0.0-8.0 % Basophils (%) (Auto) 0.1 0.0-5.0 % Neutrophils # (Auto) 5.7 1.8-7.7 K/uL Lymphocytes # (Auto) 0.9 L 1.0-4.8 K/uL Monocytes # (Auto) 0.7 0.1-1.0 K/uL Eosinophils # (Auto) 0.00 0.00-0.70 K/uL Basophils # (Auto) 0.01 0.00-0.20 K/uL Absolute Immature Granulocyte (auto 0.05 0-1 K/uL Nucleated Red Blood Cells 0.0 0.0-0.19 % Chemistry Labs: Test 08/18/24 06:07 08/18/24 04:15 08/17/24 03:51 Range/Units Whole Blood Glucose 133 H 70-110 MG/DL Sodium Level 141 136-145 mmol/L Potassium Level 3.8 3.5-5.1 mmol/L Chloride Level 100 L 101-111 mmol/L Carbon Dioxide Level 39 H 21-32 mmol/L Blood Urea Nitrogen 22 H 7-18 mg/dL Creatinine 0.5 0.5-1.3 mg/dL Glomerular Filtration Rate Calc 116 >90 mL/min Random Glucose 130 H 70-105 mg/dL Total Calcium 8.1 L 8.5-10.1 mg/dL Total Bilirubin 0.3 0.2-1.0 mg/dL Aspartate Amino Transf (AST/SGOT) 20 10-37 U/L Alanine Aminotransferase (ALT/SGPT) 26 12-78 U/L Alkaline Phosphatase 57 50-136 U/L Total Protein 6.2 6.0-8.3 g/dL Albumin 2.4 L 3.5-5.0 g/dL Coagulation Labs: Test 08/18/24 04:15 Range/Units Prothrombin Time 9.9 9.6-11.6 SEC Prothromb Time International Ratio <= 0.93 0.85-1.15 DIAGNOSTICS / RADIOLOGY RESULTS: [ ] PLAN 08/16/2024: For now, going to continue current management for the patient. I am going to increase the Lasix to 20 mg IV Q 8 hours we will also adjust frequency of the DuoNebs to acute for. Because of the persisting bradycardia, I am going to to request a EKG. We will continue to titrate ventilator settings to maintain SpO2 above 92%. At this time, the patient is not ready for SBT's. We will repeat a chest x-ray in the morning. Patient has not had a bowel movement, per the staff nurse, he administered a dose of MiraLax. We will continue to monitor for bowel activity. We will repeat a chest x-ray in the morning. Based on the microbiology data, the patient has a bacterial pneumonia secondary to MSSA, for this I am going to stop vanco and cefepime and start the patient on cefazolin 2 g q.8 hours. We will continue to provide general supportive care, GI and DVT prophylaxis. Further orders per attending MD and hospital course. 08/17/2024: For now, going to continue current management for the patient. I am going to continue with Lasix as ordered and bronchodilator therapy. At this time, the patient is still not ready for SBT's. We will repeat a chest x-ray in the morning. I am going to start the patient on lactulose daily per the OGT until he has a bowel movement then we will continue with p.r.n. We will continue to monitor for bowel activity. We will repeat a chest x-ray in the morning. We will continue with antibiotic therapy as ordered. We will continue to provide general supportive care, GI and DVT prophylaxis. Further orders per attending MD and hospital course. 06/18/2025: For now, we are going to continue the patient management. He will continue on antibiotic therapy as ordered, bronchodilator therapy and steroid also, the patient will continue on antiviral therapy. I am going to order a CT of the chest in a.m. to better evaluate the lung see in the meantime, the patient will also continue on diuretic therapy as ordered. The patient continues on sedation with fentanyl propofol and also on vasopressin. We will monitor the patient's progress and response to management and continue to provide general supportive care, GI and DVT prophylaxis. Further orders per attending MD and hospital course. NEURO: Minimize central acting medications as possible. Fall Precautions. Well lighted room through the day and minimize interruptions through the night to prevent acute delirium. PULMONARY: Supplemental 02 as needed Titrate Fio2 to keep Spo2 > or = 90% DuoNebs and CPT as needed IS hourly while awake for pulmonary hygiene Out of bed to chair as tolerated VAP Bundle Current vent setting VT 450, rate 24 FiO2 70 %, Peep 6 PF Ratio 120 CARDIOVASCULAR: Follow hemodynamics. Titrate vasopressor to keep MAP >65 or systolic blood pressure >95mmHg DIPS: Dopamine LINES: PIV GI & NUTRITION: Continue nutritional support Aspirations precautions Prokinetic agents and laxatives as needed Dietary for tube feeding recommendations KIDNEYS & ELECTROLYTES: Strict monitoring of intake and output Daily weights Avoid nephrotoxic agents Monitor electrolytes and replace as needed Goal urine output of 30mL/hr or 0.5mL/kg/hr ENDOCRINE: Maintain blood glucose between 100-180 at all times. Insulin sliding scale for blood glucose management INFECTIOUS DISEASE: Trend temperature. Patricio-culture if febrile. Micro: Sputum grew MSSA Blood cultures Urine culture Respiratory cultures Influenza a and B negative (patient is positive for influenza A) COVID-19 negative Antibiotics: Cefazolin Tamiflu HEMATOLOGY & COAGULATION: Monitor H&H. Keep Hgb > 7 Transfuse 1 unit of PRBC for Hgb < 7 Transfuse 1 pack of platelets of platelets < 20, 000 Watch for any signs and symptoms of bleeding SKIN: Pressure ulcer prevention per facility protocol Rehab: PT/OT Prophylaxis: GI: Protonix 30 mg IV push bid DVT: Lovenox Code Status: Full Resuscitation Disposition: ICU Other: Total patient care time exceeds 45 minutes excluding all procedures. Case was discussed and seen with my supervising physician. The above plan was formulated and agreed upon. MONAE FRANCIS NP Aug 18, 2024 10:37
--- NOTE | 2024-08-18 11:06 | HMCIMG ---
CHEST 1VW HISTORY: Pneumonia COMPARISON: 08/17/2024 FINDINGS: A frontal projection of the chest was obtained. There are bilateral pulmonary infiltrates suggestive of pulmonary vascular congestion with possible superimposed pneumonitis. The heart is borderline enlarged. All the lines and tubes are again seen in place. No evidence of aortic calcification is seen. IMPRESSION: 1. Bilateral pulmonary infiltrates are seen suggestive of pulmonary vascular congestion with possible superimposed pneumonitis.
[2024-08-18 13:40] LABS: ABG BASE EXCESS 5.7 mmol/L (-2.0-3.0); ABG HCO3 31.5 mmol/L (21.0-28.0); ABG OXYGEN SATURATION 94.3 % (94.0-98.0); ABG PCO2 50 mmHg (35-48); ABG PH 7.415 (7.350-7.450); CARBON MONOXIDE 0.6 % (0.5-1.5); DEVICE COMMENT RR; HHb 5.7; VENT MODE, BG AC (ROOM AIR)
--- NOTE | 2024-08-18 18:38 | HMCIMG ---
FRONTAL CHEST RADIOGRAPH INDICATION: PICC LINE VERIFICATION COMPARISON: Chest radiograph performed earlier on the same date. FINDINGS/IMPRESSION: monitoring analyst leads overlie the field of view. Tip of right PICC within the SVC. Remainder of the study is unchanged.
--- NOTE | 2024-08-18 18:39 | HMCIMG ---
FRONTAL CHEST RADIOGRAPH INDICATION: PICC LINE VERIFICATION COMPARISON: Chest radiograph performed earlier on the same date FINDINGS/IMPRESSION: roustabout crew leader leads overlie the field of view. Distal end of right PICC enters the right subclavian vein, but tip returns to the right axillary vein. Repositioning is recommended. Remainder of the study is unchanged.
[2024-08-19] VITALS (129 sets, daily range): BP systolic 76–181; BP diastolic 44–96; PULSE 50–110; RESP 18–36; TEMP 97.1–98.7; O2SAT 91–97
--- NOTE | 2024-08-19 00:46 | HMCIMG ---
CT CHEST W/O CONTRAST HISTORY: 38 over no COMPARISON: None TECHNIQUE: Multiple sequential axial images of the chest were obtained from the thoracic inlet through upper abdomen. Patient was not given contrast through intravenous route. FINDINGS: There are bilateral pulmonary infiltrates. There are interstitial fibrosis. Small bilateral pleural effusions are seen. Endotracheal tube and nasogastric tube are seen. Gallbladder is distended. Vascular calcifications are seen. There is no evidence of pneumothorax. There are normal size mediastinal and hilar lymph nodes. The heart is not enlarged. Degenerative changes of the thoracolumbar spine are present. There is no evidence of adrenal nodule. Multiple compression fractures are seen of the thoracic spine with kyphosis. IMPRESSION: 1. Bilateral pulmonary infiltrates. Small bilateral pleural effusions. CT was performed with one or more following dose reduction techniques: automated exposure control, adjustment of the mA and kv according to patient's size, or use of a iterative reconstruction technique.
[2024-08-19 05:27] LABS: BASOPHILS # (AUTO) 0.01 K/uL (0.00-0.20); BASOPHILS % (AUTO) 0.1 % (0.0-5.0); HEMATOCRIT 42.4 % (42-54); IMMATURE GRANULOCYTE ABSOLUTE 0.06 K/uL (0-1); LYMPHOCYTES # (AUTO) 0.8 K/uL (1.0-4.8); LYMPHOCYTES % (AUTO) 8.9 % (21.0-51.0); MEAN CORPUSCULAR HEMOGLOBIN 29.8 pg (27.0-33.0); MEAN CORPUSCULAR HGB CONC 30.9 g/dL (32.0-36.0); MEAN CORPUSCULAR VOLUME 96.4 fL (79-99); MONOCYTES # (AUTO) 0.6 K/uL (0.1-1.0); MONOCYTES % (AUTO) 7.1 % (3.0-13.0); NEUTROPHILS # (AUTO) 7.2 K/uL (1.8-7.7); NEUTROPHILS % (AUTO) 83.2 % (40.0-77.0); PLATELET COUNT (AUTO) 181 K/uL (130-400); WHITE BLOOD COUNT (AUTO) 8.6 K/uL (4.8-10.8)
[2024-08-19 05:35] LABS: CREATININE 0.3 mg/dL (0.5-1.3)
[2024-08-19 05:47] LABS: POTASSIUM 2.9 mmol/L (3.5-5.1)
[2024-08-19] MEDS ORDERED: PHARMACY COMMUNICATION 1 EACH EACH MISC SCH (10:00)
--- NOTE | 2024-08-19 10:38 | PN ---
[facility] PROGRESS NOTE Date Patient Seen: Aug 19, 2024 Time of Visit: 10:38 Supervising Physician: Dr. Cervantes Primary Care Physician: [Dr. Zafar Harris ] Outpatient Specialists: [ ] Inpatient Consults: [ ] PROBLEM LIST: Septic Shock POA requiring PRESSORS, resolved 2/2 Gram-positive cocci bacteremia, POA, on repeat neg BC (likely contamination) Acute on chronic hypoxic hypercapnic respiratory failure requiring vent support- POA Intubated POA Elevated D-Dimer Neg DVT Well score for PE 1.5 (Low Risk) Viral community-acquired pneumonia + Influenza A W/ superimposed bacterial Pneumonia -POA 2nd to MSSA COPD/asthma/emphysema exacerbation-POA Constipation with firm abdomen r/o sbo Hypochloremia-POA Hypokalemia Primary hypertension Diabetes mellitus HLD Chronic nicotine disorder Obstructive sleep apnea Polysubstance abuse with tobacco, cocaine and alcohol Fatty Liver Morbid obese, BMI 39.9 INTERVAL HISTORY: "Patient is unable to participate on the HPI due to intubated and sedated. Per ED notes:"The patient is a 59-year-old male with a history of COPD on chronic o2, emphysema, asthma, everyday smoker, diabetes and hypertension who presents to the emergency department with worsening shortness of breath onset 2 days ago. Patient reports occasional productive cough. Denies any fevers.Denies chest pain. Patient reports he was just discharged two days ago." According to the girlfriend at bedside, patient was doing well in the morning and in the afternoon until about 6:00 p.m. prior to admission when he started getting restless and having a lot of coughing and phlegm. Despite BiPAP treatment at the ED, he was not able to tolerate and blood gas continues to decline leading to intubation. " 08/12/24 AM rounds- patient is sedated with propofol and Versed drip, continues intubated. ABGs improving with a pH of 7.4 pCO2 of 57 PO2 of 205 and bicarb of 35. PF ratio 256. Ventilator settings adjusted to tidal volume of 450, respiratory rate of 26, 60% FiO2 and, peep down to 5. He was requiring minimal vasopressor support with Levophed at 0.04 micrograms/kilogram per minute, blood pressure 123/66 heart rate 58 respiratory rate of 26 O2 sat 98% with a FiO2 of 60%. Patient has Michele catheter with urine output of 350 mL this morning. patient is negative for influenza type a and B and COVID-19. WBCs 17.7 today H&H is similar to yesterday 12.8/42.6 with a platelet count that is 128 K slightly improving from yesterday which were 122 K. neutrophils 92.7 similar to yesterday. Chemistry BUN 18 creatinine 0.7 GFR of 105 kidneys are doing well glucose of 216 mg/dL we will adjust insulin total calcium 1.02 magnesium of 2.6. TSH is 0.48. On last chest x-ray approximately at 01:37 in the morning post intubation ET tube slightly above the aortic notch we will repeat chest x-ray at this time to evaluate placement on x-ray noted to have bilateral pulmonary infiltrates with pulmonary vascular congestion no pneumothorax noted. 08/13/24- Patient has a few episodes with high pressors overnight and he was sedated again with Versed at 10 milligrams/hour and fentanyl at 250 micrograms/kilogram per minute. This morning we can try switching over to Precedex instead of Versed in preparation for sedation vacation. He has been off Levophed early this morning but now back on minimal dose of 0.01 micrograms/kilogram per minute. Urine output 1.2 L in the last 24 hours with a positive balance of 2.2 L. No bowel movement. WBCs trending down 12.8 H&H is 12.3/40.4 platelet count is [id number] slightly lower than yesterday. Chemistries sodium 139 potassium is 5, carbon dioxide 37 BUN of 18 creatinine of 0.6 and GFR 110, kidneys are doing good. Glucose 112 mg/dL, liver enzymes normal, albumin 2.6 total protein 5.9 procalcitonin 0.32, BNP of 30, patient has spiked a fever overnight of 101.5. Chest x-ray improving, ET tube 4.4 cm above the chencho in good position, with bilateral pulmonary infiltrates, increased pulmonary vascular congestion. Venous Doppler done yesterday normal bilateral lower extremity venous Doppler without evidence of DVT. Pending CTA to rule out PE due to hypoxemia and elevated D-Dimer and on pressors. We will cover for aspiration pneumonia due to spiking fever with Flagyl. We will also panculture. 08/14/24-patient continues on mechanical ventilation and Levophed at 0.05 micrograms/kilogram per minute he is currently heavily sedated with fentanyl and Precedex. We will attempt to fentanyl and leave on Precedex only today. Latest ABGs with the improvement pH of 7.424/51/88.44/32.6. This is likely his baseline given that he was chronic respiratory failure and history of COPD. Patient's temperature is has been decreasing with a T-max of 101.5 yesterday and a T low of 99. I&O balance + 856 mL with a urine output of 1.9 L. WBCs have improved today 7.9 H&H is 12.9/40.6 with a platelet count of [id number] improving, neutrophils are going down as well today 86.9 from 90.1 yesterday. Chemistry kidneys are doing well creatinine 0.5 GFR 116 mg/dL. Procalcitonin is normal glucose 127 mg/dL. Yesterday's recheck of influenza came back positive for type a influenza. He has been started on Tamiflu. On microbiology : Blood cultures growing Gram-positive cocci . Pending final culture. Patient continues on vancomycin, cefepime and Flagyl. Chest x-ray with increased vascular congestion and pulmonary infiltrates. Starting Lasix 20 mg IV q.8 hours. 08/15/24- patient continues on a ventilator. He is easily arousable and following commands only on fentanyl drip at a 150 micrograms/kilogram per minute. Ventilator settings currently assist-control volume control tidal volume of 450 respiratory rate of 24 FiO2 of 70% and PEEP of 6. Those adjustments were made after reason ABG of pH of 7.33 pCO2 of 69 PO2 of 67.1 bicarb of 36.2 and FiO2 70%. Plateau pressure of 28. We will repeat ABG in 2 hours. Urine output 4.4 L with a balance of-2.7 L. WBCs are normal 5.9 H&H is 12.7/41.7 with a platelet count that is 129 K. Chemistry chloride is 100 carbon dioxide 36 BUN of 24. Kidneys are doing good creatinine 0.6 and GFR of 110. Decrease Lasix to 20 mg Q 24 hours IV push which is home dose of 40 mg p.o. Q 24H. Patient is pending chest x-ray for this morning. 08/16/2024: At the time of my evaluation, the patient is lying in bed. The staff nurse reports no acute events overnight. Vital signs reviewed today showed of significance bradycardia in the 40s to 50s. He continues on ventilator support AC VC mode FiO2 of 60%, tidal volume 450 with a PEEP of eight and a PF ratio of 110. He continues on dopamine drip/fentanyl/propofol/Lasix/DuoNebs/Solu-Medrol/Tamiflu/cefepime. Laboratory data of significance showed no major changes on CBC. Chemistry panel shows stable electrolyte and renal parameters. We will cultures in progress and showed no growth. Otherwise, no other concerns. 08/17/2024: At the time of my evaluation, the patient was lying in bed. The staff nurse reports no acute events overnight. Vital signs today, showed stable readings. Laboratory data showed a WBC 7.0, hemoglobin 13.9, hematocrit of 44.2 and a platelet count of 160. Chemistry shows sodium 141, potassium 3.7, chloride 99 BUN 20 creatinine of 0.6 total protein of 6.2 and albumin of 2.4. He continues on dopamine/fentanyl/propofol/Lasix/DuoNebs/Solu-Medrol/Tamiflu/cefaz natalie. Imaging today showed same bilateral pulmonary infiltrates with pulmonary vascular congestion and superimposed pneumonitis but improved compared to yesterday. Urine output overnight was 5000 mL the patient still has not had no bowel movement. No new complaint. 06/18/2025: At the time of my evaluation, the patient was lying in bed. He remains intubated and sedated. Laboratory data did not show major changes. Cultures are in progress. Patient continues on antibiotic therapy as ordered. Imaging today still showing bilateral pulmonary infiltrates with superimposed pneumonitis. No other complaint. 08/19/2024: At the time of my evaluation, the patient was lying in bed. He remains intubated and remains intubated with fentanyl drip for sedation and dopamine. His vital signs showed a soft blood pressure 98/60 and heart rate in the upper 60s. He also remains IV Lasix and is on cefazolin IV. The patient completed his Tamiflu treatment. Laboratory data today of significance showed a drop in potassium of 2.9. No new complaint. REVIEW OF SYSTEMS: Unable to perform due to patient intubated and sedated. PHYSICAL EXAM: GENERAL: Intubated, awake and following commands. HEENT: EOMI, Sclera non icteric, moist mucosa NECK: Short neck, no JVD, trachea midline LUNGS: rhonchi to left lobes, diminished to rt lower. breath sounds bilaterally. No wheezes HEART: Regular rate and rhythm. Normal S1 and S2, without murmurs ABD: Abdomen obese firm, nontender. Bowel sounds present EXT: No clubbing cyanosis or edema NEURO: Moving all extremities awake alert and following commands. Vital Signs (last 8hr) Date Time Temp Pulse Resp B/P (MAP) Pulse Ox O2 Delivery O2 Flow Rate FiO2 08/19/24 10:05 62 22 08/19/24 09:39 62 60 08/19/24 08:47 62 22 131/69 (89) 91 08/19/24 08:45 62 22 91 08/19/24 08:32 60 22 130/70 (90) 89 08/19/24 08:30 60 22 91 08/19/24 08:17 56 22 144/70 (94) 91 08/19/24 08:15 57 22 92 08/19/24 08:02 59 22 144/78 (100) 08/19/24 08:00 57 22 08/19/24 08:00 91 Ventilator+ 50 08/19/24 07:47 58 22 169/87 (114) 08/19/24 07:45 58 22 100 08/19/24 07:32 60 22 167/87 (113) 86 08/19/24 07:30 62 22 94 08/19/24 07:16 85 22 179/96 (123) 94 08/19/24 07:15 98.2 84 22 08/19/24 07:01 91 22 08/19/24 07:00 55 22 77/49 (58) 91 50 08/19/24 06:54 110 60 08/19/24 06:45 91 22 77/53 (61) 85 50 08/19/24 06:30 83 23 181/85 (117) 93 50 08/19/24 06:15 63 22 150/75 (100) 94 50 08/19/24 06:00 56 22 76/47 (57) 92 50 08/19/24 06:00 56 22 76/47 (57) 92 50 08/19/24 05:45 55 22 117/62 (80) 94 50 08/19/24 05:30 52 22 122/65 (84) 94 50 08/19/24 05:15 51 22 125/63 (83) 94 50 08/19/24 05:00 55 22 81/44 (56) 93 50 08/19/24 04:45 57 22 108/61 (77) 94 50 08/19/24 04:30 55 22 114/59 (77) 94 50 08/19/24 04:15 58 22 96/54 (68) 93 50 08/19/24 04:00 98.1 57 22 122/67 (85) 94 50 08/19/24 04:00 93 Ventilator+ 50 08/19/24 03:45 55 22 101/60 (74) 93 50 08/19/24 03:30 57 22 108/62 (77) 94 50 08/19/24 03:15 63 18 109/63 (78) 93 50 08/19/24 03:00 58 23 110/65 (80) 94 50 08/19/24 02:45 56 22 114/63 (80) 93 50 LABS: Hematology Labs: Test 08/19/24 05:20 Range/Units White Blood Count 8.6 4.8-10.8 K/uL Red Blood Count 4.40 L 4.50-6.20 MIL/uL Hemoglobin 13.1 L 14.0-18.0 g/dL Hematocrit 42.4 42-54 % Mean Corpuscular Volume 96.4 79-99 fL Mean Corpuscular Hemoglobin 29.8 27.0-33.0 pg Mean Corpuscular Hemoglobin Concent 30.9 L 32.0-36.0 g/dL Red Cell Distribution Width 13.0 11.0-15.5 % Platelet Count 181 130-400 K/uL Mean Platelet Volume 9.8 7.5-10.5 fL Immature Granulocyte % (Auto) 0.7 0-1 % Neutrophils (%) (Auto) 83.2 H 40.0-77.0 % Lymphocytes (%) (Auto) 8.9 L 21.0-51.0 % Monocytes (%) (Auto) 7.1 3.0-13.0 % Eosinophils (%) (Auto) 0.0 0.0-8.0 % Basophils (%) (Auto) 0.1 0.0-5.0 % Neutrophils # (Auto) 7.2 1.8-7.7 K/uL Lymphocytes # (Auto) 0.8 L 1.0-4.8 K/uL Monocytes # (Auto) 0.6 0.1-1.0 K/uL Eosinophils # (Auto) 0.00 0.00-0.70 K/uL Basophils # (Auto) 0.01 0.00-0.20 K/uL Absolute Immature Granulocyte (auto 0.06 0-1 K/uL Nucleated Red Blood Cells 0.0 0.0-0.19 % Chemistry Labs: Test 08/19/24 05:20 08/19/24 01:19 Range/Units Sodium Level 144 136-145 mmol/L Potassium Level 2.9 *L 3.5-5.1 mmol/L Chloride Level 105 101-111 mmol/L Carbon Dioxide Level 35 H 21-32 mmol/L Blood Urea Nitrogen 20 H 7-18 mg/dL Creatinine 0.3 L 0.5-1.3 mg/dL Glomerular Filtration Rate Calc 135 >90 mL/min Random Glucose 147 H 70-105 mg/dL Total Calcium 6.8 L 8.5-10.1 mg/dL Whole Blood Glucose 213 #H 70-110 MG/DL Coagulation Labs: Test 08/18/24 04:15 Range/Units Prothrombin Time 9.9 9.6-11.6 SEC Prothromb Time International Ratio <= 0.93 0.85-1.15 DIAGNOSTICS / RADIOLOGY RESULTS: [ ] PLAN 08/16/2024: For now, going to continue current management for the patient. I am going to increase the Lasix to 20 mg IV Q 8 hours we will also adjust frequency of the DuoNebs to acute for. Because of the persisting bradycardia, I am going to to request a EKG. We will continue to titrate ventilator settings to maintain SpO2 above 92%. At this time, the patient is not ready for SBT's. We will repeat a chest x-ray in the morning. Patient has not had a bowel movement, per the staff nurse, he administered a dose of MiraLax. We will continue to monitor for bowel activity. We will repeat a chest x-ray in the morning. Based on the microbiology data, the patient has a bacterial pneumonia secondary to MSSA, for this I am going to stop vanco and cefepime and start the patient on cefazolin 2 g q.8 hours. We will continue to provide general supportive care, GI and DVT prophylaxis. Further orders per attending MD and hospital course. 08/17/2024: For now, going to continue current management for the patient. I am going to continue with Lasix as ordered and bronchodilator therapy. At this time, the patient is still not ready for SBT's. We will repeat a chest x-ray in the morning. I am going to start the patient on lactulose daily per the OGT until he has a bowel movement then we will continue with p.r.n. We will continue to monitor for bowel activity. We will repeat a chest x-ray in the morning. We will continue with antibiotic therapy as ordered. We will continue to provide general supportive care, GI and DVT prophylaxis. Further orders per attending MD and hospital course. 06/18/2025: For now, we are going to continue the patient management. He will continue on antibiotic therapy as ordered, bronchodilator therapy and steroid also, the patient will continue on antiviral therapy. I am going to order a CT of the chest in a.m. to better evaluate the lung see in the meantime, the patient will also continue on diuretic therapy as ordered. The patient continues on sedation with fentanyl propofol and also on vasopressin. We will monitor the patient's progress and response to management and continue to provide general supportive care, GI and DVT prophylaxis. Further orders per attending MD and hospital course. 08/19/2024: For now, going to continue current management for the patient. He will remain intubated and we will request a ABG to evaluate the respiratory gases. He will remain on sedation with fentanyl and we will attempt to wean if appropriate. Patient is on sedation vacation daily. I am going to request a repeat potassium level now and if needs be, we will continue replacing per the protocol. Also, I am going to start the patient on K-Lyte 25 mEq per the NG b.i.d. He will remain on IV cefazolin as ordered. We will also remain on IV Lasix. We will repeat surveillance labs in the morning. We will monitor the patient's progress. We will continue to provide general supportive care, GI and DVT prophylaxis. Further orders per attending MD and hospital course. NEURO: Minimize central acting medications as possible. Fall Precautions. Well lighted room through the day and minimize interruptions through the night to prevent acute delirium. PULMONARY: Supplemental 02 as needed Titrate Fio2 to keep Spo2 > or = 90% DuoNebs and CPT as needed IS hourly while awake for pulmonary hygiene Out of bed to chair as tolerated VAP Bundle Current vent setting VT 450, rate 24 FiO2 70 %, Peep 6 PF Ratio 120 CARDIOVASCULAR: Follow hemodynamics. Titrate vasopressor to keep MAP >65 or systolic blood pressure >95mmHg DIPS: Dopamine LINES: PICC line GI & NUTRITION: Continue nutritional support Aspirations precautions Prokinetic agents and laxatives as needed No bowel movements documented. The patient continues on lactulose and MiraLax. Dietary for tube feeding recommendations KIDNEYS & ELECTROLYTES: Strict monitoring of intake and output Daily weights Avoid nephrotoxic agents Monitor electrolytes and replace as needed Goal urine output of 30mL/hr or 0.5mL/kg/hr Total overnight urinary output was 3.5 L of urine with a negative balance of 353.3. ENDOCRINE: Maintain blood glucose between 100-180 at all times. Insulin sliding scale for blood glucose management INFECTIOUS DISEASE: Trend temperature. Patricio-culture if febrile. Micro: Sputum grew MSSA Blood cultures Urine culture Respiratory cultures Influenza a and B negative (patient is positive for influenza A) COVID-19 negative Antibiotics: Cefazolin Tamiflu HEMATOLOGY & COAGULATION: Monitor H&H. Keep Hgb > 7 Transfuse 1 unit of PRBC for Hgb < 7 Transfuse 1 pack of platelets of platelets < 20, 000 Watch for any signs and symptoms of bleeding SKIN: Pressure ulcer prevention per facility protocol Rehab: PT/OT Prophylaxis: GI: Protonix 30 mg IV push bid DVT: Lovenox Code Status: Full Resuscitation Disposition: ICU Other: Total patient care time exceeds 45 minutes excluding all procedures. Case was discussed and seen with my supervising physician. The above plan was formulated and agreed upon. MONAE FRANCIS NP Aug 19, 2024 10:38
[2024-08-19 12:31] LABS: ABG BASE EXCESS 1.1 mmol/L (-2.0-3.0); ABG HCO3 27.2 mmol/L (21.0-28.0); ABG OXYGEN SATURATION 97.6 % (94.0-98.0); ABG PCO2 49 mmHg (35-48); ABG PH 7.362 (7.350-7.450); PO2, ARTERIAL BG 105.8 mmHg (83.0-108.0); VENT MODE, BG AC (ROOM AIR)
--- NOTE | 2024-08-19 12:59 | NUR ---
NURSING NOTE FLEET ENEMA ORDERED BY [employer] [employer], UNABLE TO FIND ORDER FOR IT SO WROTE IT PHARMACY COMMUNICATION, ADMINISTERED FLEETS ENEMA, AFTER 5 MINUTES NO STOOL EXPELLED, ATTEMPTED TO MANUALLY DISIMPACT BUT THERE IS NO HARD STOOL FOUND IN RECTUM, WILL CONTINUE TO WAIT FOR STOOL TO PASS
--- NOTE | 2024-08-19 14:33 | HMCIMG ---
ABD 1VW HISTORY: Severe constipation COMPARISON: None FINDINGS: A frontal projection of the abdomen was obtained. Mild small bowel dilatation is seen. Colonic distention is seen. Fecal material is seen in the colon. Degenerative changes of the thoracolumbar spine are noted. IMPRESSION: 1. Mild small bowel dilatation. Colonic distention.
--- NOTE | 2024-08-19 17:20 | NUR ---
NURSING NOTES PT HAD ONE LARGE BM AFTER ADMINISTERING FLEETS ENEMA
[2024-08-19] MEDS: dexmedeTOMIDine 400MCG/NS100ML IV SCH (19:54)
[2024-08-19] MEDS: INSULIN GLARgine 100 UNITS/ML 10 ML VIAL SQ SCH (20:49)
[2024-08-19] MEDS: PoTASSium BIcarbonate/CIT AC 25 MEQ TABLET.EFF NG SCH (20:50)
[2024-08-20] VITALS (122 sets, daily range): BP systolic 50–185; BP diastolic 32–113; PULSE 47–142; RESP 18–102; TEMP 97.8–99; O2SAT 92–95
[2024-08-20 04:04] LABS: BASOPHILS # (AUTO) 0.01 K/uL (0.00-0.20); BASOPHILS % (AUTO) 0.1 % (0.0-5.0); HEMATOCRIT 45.8 % (42-54); IMMATURE GRANULOCYTE ABSOLUTE 0.12 K/uL (0-1); LYMPHOCYTES # (AUTO) 0.9 K/uL (1.0-4.8); LYMPHOCYTES % (AUTO) 8.8 % (21.0-51.0); MEAN CORPUSCULAR HEMOGLOBIN 29.8 pg (27.0-33.0); MEAN CORPUSCULAR HGB CONC 31.4 g/dL (32.0-36.0); MEAN CORPUSCULAR VOLUME 94.6 fL (79-99); MONOCYTES # (AUTO) 0.8 K/uL (0.1-1.0); MONOCYTES % (AUTO) 7.4 % (3.0-13.0); NEUTROPHILS # (AUTO) 8.4 K/uL (1.8-7.7); NEUTROPHILS % (AUTO) 82.5 % (40.0-77.0); PLATELET COUNT (AUTO) 225 K/uL (130-400); RED BLOOD CELL COUNT(AUTO) 4.84 MIL/uL (4.50-6.20); RED CELL DISTRIBUTION WIDTH 12.9 % (11.0-15.5); WHITE BLOOD COUNT (AUTO) 10.2 K/uL (4.8-10.8)
[2024-08-20 04:23] LABS: CREATININE 0.4 mg/dL (0.5-1.3); POTASSIUM 3.4 mmol/L (3.5-5.1)
[2024-08-20 07:36] LABS: ABG HCO3 35.2 mmol/L (21.0-28.0); ABG OXYGEN SATURATION 94.3 % (94.0-98.0); ABG PCO2 49 mmHg (35-48); ABG PH 7.477 (7.350-7.450); DEVICE COMMENT RRNIOBE; PO2, ARTERIAL BG 67.3 mmHg (83.0-108.0); VENT MODE, BG AC (ROOM AIR)
--- NOTE | 2024-08-20 09:28 | HMCIMG ---
CHEST 1VW HISTORY: Pneumonia COMPARISON: None FINDINGS: A frontal projection of the chest was obtained. Mild bilateral pulmonary infiltrates are seen may be related to mild pulmonary vascular congestion with possible superimposed pneumonitis. Endotracheal tube is seen with distal tip at 4.3 cm above chencho. The heart is borderline enlarged. All the lines and tubes are again seen in place. No evidence of aortic calcification is seen. IMPRESSION: 1. Mild bilateral pulmonary infiltrates are seen may be related to mild pulmonary vascular congestion with possible superimposed pneumonitis.
--- NOTE | 2024-08-20 11:29 | PN ---
[facility] PROGRESS NOTE Date Patient Seen: Aug 20, 2024 Time of Visit: 11:28 Supervising Physician: Dr. Pillai Primary Care Physician: [Dr. Zafar Harris ] Outpatient Specialists: [ ] Inpatient Consults: [ ] PROBLEM LIST: Septic Shock POA requiring PRESSORS, resolved 2/2 Gram-positive cocci bacteremia, POA, on repeat neg BC (likely contamination) Acute on chronic hypoxic hypercapnic respiratory failure requiring vent support- POA Intubated POA Elevated D-Dimer Neg DVT Well score for PE 1.5 (Low Risk) Viral community-acquired pneumonia + Influenza A W/ superimposed bacterial Pneumonia -POA 2nd to MSSA COPD/asthma/emphysema exacerbation-POA Constipation with firm abdomen r/o sbo Hypochloremia-POA Hypokalemia Primary hypertension Diabetes mellitus HLD Chronic nicotine disorder Obstructive sleep apnea Polysubstance abuse with tobacco, cocaine and alcohol Fatty Liver Morbid obese, BMI 39.9 INTERVAL HISTORY: "Patient is unable to participate on the HPI due to intubated and sedated. Per ED notes:"The patient is a 59-year-old male with a history of COPD on chronic o2, emphysema, asthma, everyday smoker, diabetes and hypertension who presents to the emergency department with worsening shortness of breath onset 2 days ago. Patient reports occasional productive cough. Denies any fevers.Denies chest pain. Patient reports he was just discharged two days ago." According to the girlfriend at bedside, patient was doing well in the morning and in the afternoon until about 6:00 p.m. prior to admission when he started getting restless and having a lot of coughing and phlegm. Despite BiPAP treatment at the ED, he was not able to tolerate and blood gas continues to decline leading to intubation. " 08/12/24 AM rounds- patient is sedated with propofol and Versed drip, continues intubated. ABGs improving with a pH of 7.4 pCO2 of 57 PO2 of 205 and bicarb of 35. PF ratio 256. Ventilator settings adjusted to tidal volume of 450, respiratory rate of 26, 60% FiO2 and, peep down to 5. He was requiring minimal vasopressor support with Levophed at 0.04 micrograms/kilogram per minute, blood pressure 123/66 heart rate 58 respiratory rate of 26 O2 sat 98% with a FiO2 of 60%. Patient has Michele catheter with urine output of 350 mL this morning. patient is negative for influenza type a and B and COVID-19. WBCs 17.7 today H&H is similar to yesterday 12.8/42.6 with a platelet count that is 128 K slightly improving from yesterday which were 122 K. neutrophils 92.7 similar to yesterday. Chemistry BUN 18 creatinine 0.7 GFR of 105 kidneys are doing well glucose of 216 mg/dL we will adjust insulin total calcium 1.02 magnesium of 2.6. TSH is 0.48. On last chest x-ray approximately at 01:37 in the morning post intubation ET tube slightly above the aortic notch we will repeat chest x-ray at this time to evaluate placement on x-ray noted to have bilateral pulmonary infiltrates with pulmonary vascular congestion no pneumothorax noted. 08/13/24- Patient has a few episodes with high pressors overnight and he was sedated again with Versed at 10 milligrams/hour and fentanyl at 250 microgr ams/kilogram per minute. This morning we can try switching over to Precedex instead of Versed in preparation for sedation vacation. He has been off Levophed early this morning but now back on minimal dose of 0.01 micrograms/kilogram per minute. Urine output 1.2 L in the last 24 hours with a positive balance of 2.2 L. No bowel movement. WBCs trending down 12.8 H&H is 12.3/40.4 platelet count is [id number] slightly lower than yesterday. Chemistries sodium 139 potassium is 5, carbon dioxide 37 BUN of 18 creatinine of 0.6 and GFR 110, kidneys are doing good. Glucose 112 mg/dL, liver enzymes normal, albumin 2.6 total protein 5.9 procalcitonin 0.32, BNP of 30, patient has spiked a fever overnight of 101.5. Chest x-ray improving, ET tube 4.4 cm above the chencho in good position, with bilateral pulmonary infiltrates, increased pulmonary vascular congestion. Venous Doppler done yesterday normal bilateral lower extremity venous Doppler without evidence of DVT. Pending CTA to rule out PE due to hypoxemia and elevated D-Dimer and on pressors. We will cover for aspiration pneumonia due to spiking fever with Flagyl. We will also panculture. 08/14/24-patient continues on mechanical ventilation and Levophed at 0.05 micrograms/kilogram per minute he is currently heavily sedated with fentanyl and Precedex. We will attempt to fentanyl and leave on Precedex only today. Latest ABGs with the improvement pH of 7.424/51/88.44/32.6. This is likely his baseline given that he was chronic respiratory failure and history of COPD. Patient's temperature is has been decreasing with a T-max of 101.5 yesterday and a T low of 99. I&O balance + 856 mL with a urine output of 1.9 L. WBCs have improved today 7.9 H&H is 12.9/40.6 with a platelet count of [id number] improving, neutrophils are going down as well today 86.9 from 90.1 yesterday. Chemistry kidneys are doing well creatinine 0.5 GFR 116 mg/dL. Procalcitonin is normal glucose 127 mg/dL. Yesterday's recheck of influenza came back positive for type a influenza. He has been started on Tamiflu. On microbiology : Blood cultures growing Gram-positive cocci . Pending final culture. Patient continues on vancomycin, cefepime and Flagyl. Chest x-ray with increased vascular congestion and pulmonary infiltrates. Starting Lasix 20 mg IV q.8 hours. 08/15/24- patient continues on a ventilator. He is easily arousable and following commands only on fentanyl drip at a 150 micrograms/kilogram per minute. Ventilator settings currently assist-control volume control tidal volume of 450 respiratory rate of 24 FiO2 of 70% and PEEP of 6. Those adjustments were made after reason ABG of pH of 7.33 pCO2 of 69 PO2 of 67.1 bicarb of 36.2 and FiO2 70%. Plateau pressure of 28. We will repeat ABG in 2 hours. Urine output 4.4 L with a balance of-2.7 L. WBCs are normal 5.9 H&H is 12.7/41.7 with a platelet count that is 129 K. Chemistry chloride is 100 carbon dioxide 36 BUN of 24. Kidneys are doing good creatinine 0.6 and GFR of 110. Decrease Lasix to 20 mg Q 24 hours IV push which is home dose of 40 mg p.o. Q 24H. Patient is pending chest x-ray for this morning. 08/16/2024: At the time of my evaluation, the patient is lying in bed. The staff nurse reports no acute events overnight. Vital signs reviewed today showed of significance bradycardia in the 40s to 50s. He continues on ventilator support AC VC mode FiO2 of 60%, tidal volume 450 with a PEEP of eight and a PF ratio of 110. He continues on dopamine drip/fentanyl/propofol/Lasix/DuoNebs/Solu-Medrol/Tamiflu/cefepime. Laboratory data of significance showed no major changes on CBC. Chemistry panel shows stable electrolyte and renal parameters. We will cultures in progress and showe d no growth. Otherwise, no other concerns. 08/17/2024: At the time of my evaluation, the patient was lying in bed. The staff nurse reports no acute events overnight. Vital signs today, showed stable readings. Laboratory data showed a WBC 7.0, hemoglobin 13.9, hematocrit of 44.2 and a platelet count of 160. Chemistry shows sodium 141, potassium 3.7, chloride 99 BUN 20 creatinine of 0.6 total protein of 6.2 and albumin of 2.4. He continues on dopamine/fentanyl/propofol/Lasix/DuoNebs/Solu-Medrol/Tamiflu /cefazolin. Imaging today showed same bilateral pulmonary infiltrates with pulmonary vascular congestion and superimposed pneumonitis but improved compared to yesterday. Urine output overnight was 5000 mL the patient still has not had no bowel movement. No new complaint. 06/18/2025: At the time of my evaluation, the patient was lying in bed. He remains intubated and sedated. Laboratory data did not show major changes. Cultures are in progress. Patient continues on antibiotic therapy as ordered. Imaging today still showing bilateral pulmonary infiltrates with superimposed pneumonitis. No other complaint. 08/19/2024: At the time of my evaluation, the patient was lying in bed. He remains intubated and remains intubated with fentanyl drip for sedation and dopamine. His vital signs showed a soft blood pressure 98/60 and heart rate in the upper 60s. He also remains IV Lasix and is on cefazolin IV. The patient completed his Tamiflu treatment. Laboratory data today of significance showed a drop in potassium of 2.9. No new complaint. 08/20/2024: At the time of my evaluation, the patient is lying in bed. He remains sedated and intubated. The staff nurse reports no major events overnight. He continues on diuretic therapy with urinary output. The urine today was discolored greenish which may be secondary to the propofol drip. Vital signs are generally stable. Slight hypokalemia with labs this a.m. renal parameters within normal range. No other complaint. 24 hour I & O: Urine output of a 300 mL mL with a balance of + 993.0 ML Vent mode/ABG: AC mode, pH 7.4, pCO2 49, PO2 67, HC03 35 PF ratio: 160 Plateau pressure: Driving pressure: Sedation Drips: propofol. Pressors: Dopamine, Vasopressin. Antibiotics/antiviral: Cefazolin. Microbiology data: Repeat blood cultures showing no growth final report. Imaging data: Slight improvement of pulmonary vascular congestion. Peribronchial cuffing. Pathology data: None. REVIEW OF SYSTEMS: Unable to perform due to patient intubated and sedated. PHYSICAL EXAM: GENERAL: Intubated, awake and following commands. HEENT: EOMI, Sclera non icteric, moist mucosa NECK: Short neck, no JVD, trachea midline LUNGS: rhonchi to left lobes, diminished to rt lower. breath sounds bilaterally. No wheezes HEART: Regular rate and rhythm. Normal S1 and S2, without murmurs ABD: Abdomen obese firm, nontender. Bowel sounds present EXT: No clubbing cyanosis or edema NEURO: Moving all extremities awake alert and following commands. Vital Signs (last 8hr) Date Time Temp Pulse Resp B/P (MAP) Pulse Ox O2 Delivery O2 Flow Rate FiO2 08/20/24 10:03 64 28 08/20/24 09:42 55 50 08/20/24 09:02 60 22 118/70 (86) 93 08/20/24 08:47 64 22 151/81 (104) 95 08/20/24 08:32 63 22 145/87 (106) 95 08/20/24 08:17 57 22 143/78 (99) 95 08/20/24 08:02 55 22 137/60 (85) 95 08/20/24 07:32 58 22 138/70 (92) 95 08/20/24 07:17 98.8 56 22 130/66 (87) 96 08/20/24 07:02 61 22 123/63 (83) 95 08/20/24 06:47 69 124/69 (87) 95 08/20/24 06:33 65 26 08/20/24 06:32 73 102 96/53 (67) 96 08/20/24 06:20 60 50 08/20/24 06:17 70 99/57 (71) 97 08/20/24 06:02 64 102/58 (73) 96 08/20/24 05:48 91 57 92/70 (77) 94 08/20/24 05:32 76 23 116/73 (87) 95 08/20/24 05:17 61 22 136/73 (94) 96 08/20/24 05:02 50 22 105/63 (77) 95 08/20/24 04:47 49 22 111/64 (80) 95 08/20/24 04:32 47 22 111/67 (82) 95 08/20/24 04:17 47 22 110/65 (80) 95 08/20/24 04:02 51 22 95/50 (65) 95 08/20/24 04:00 95 Ventilator+ 50 08/20/24 03:47 51 22 117/65 (82) 96 08/20/24 03:32 51 22 110/63 (79) 96 LABS: Hematology Labs: Test 08/20/24 03:45 Range/Units White Blood Count 10.2 4.8-10.8 K/uL Red Blood Count 4.84 4.50-6.20 MIL/uL Hemoglobin 14.4 14.0-18.0 g/dL Hematocrit 45.8 42-54 % Mean Corpuscular Volume 94.6 79-99 fL Mean Corpuscular Hemoglobin 29.8 27.0-33.0 pg Mean Corpuscular Hemoglobin Concent 31.4 L 32.0-36.0 g/dL Red Cell Distribution Width 12.9 11.0-15.5 % Platelet Count 225 130-400 K/uL Mean Platelet Volume 9.6 7.5-10.5 fL Immature Granulocyte % (Auto) 1.2 H 0-1 % Neutrophils (%) (Auto) 82.5 H 40.0-77.0 % Lymphocytes (%) (Auto) 8.8 L 21.0-51.0 % Monocytes (%) (Auto) 7.4 3.0-13.0 % Eosinophils (%) (Auto) 0.0 0.0-8.0 % Basophils (%) (Auto) 0.1 0.0-5.0 % Neutrophils # (Auto) 8.4 H 1.8-7.7 K/uL Lymphocytes # (Auto) 0.9 L 1.0-4.8 K/uL Monocytes # (Auto) 0.8 0.1-1.0 K/uL Eosinophils # (Auto) 0.00 0.00-0.70 K/uL Basophils # (Auto) 0.01 0.00-0.20 K/uL Absolute Immature Granulocyte (auto 0.12 0-1 K/uL Nucleated Red Blood Cells 0.0 0.0-0.19 % Chemistry Labs: Test 08/20/24 06:33 08/20/24 03:45 Range/Units Whole Blood Glucose 271 #H 70-110 MG/DL Sodium Level 142 136-145 mmol/L Potassium Level 3.4 L 3.5-5.1 mmol/L Chloride Level 99 L 101-111 mmol/L Carbon Dioxide Level 39 H 21-32 mmol/L Blood Urea Nitrogen 22 H 7-18 mg/dL Creatinine 0.4 L 0.5-1.3 mg/dL Glomerular Filtration Rate Calc 124 >90 mL/min Random Glucose 158 H 70-105 mg/dL Total Calcium 8.3 L 8.5-10.1 mg/dL DIAGNOSTICS / RADIOLOGY RESULTS: [ ] PLAN 08/16/2024: For now, going to continue current management for the patient. I am going to increase the Lasix to 20 mg IV Q 8 hours we will also adjust frequency of the DuoNebs to acute for. Because of the persisting bradycardia, I am going to to request a EKG. We will continue to titrate ventilator settings to maintain SpO2 above 92%. At this time, the patient is not ready for SBT's. We will repeat a chest x-ray in the morning. Patient has not had a bowel movement, per the staff nurse, he administered a dose of MiraLax. We will continue to monitor for bowel activity. We will repeat a chest x-ray in the morning. Based on the microbiology data, the patient has a bacterial pneumonia secondary to MSSA, for this I am going to stop vanco and cefepime and start the patient on cefazolin 2 g q.8 hours. We will continue to provide general supportive care, GI and DVT prophylaxis. Further orders per attending MD and hospital course. 08/17/2024: For now, going to continue current management for the patient. I am going to continue with Lasix as ordered and bronchodilator therapy. At this time, the patient is still not ready for SBT's. We will repeat a chest x-ray in the morning. I am going to start the patient on lactulose daily per the OGT until he has a bowel movement then we will continue with p.r.n. We will continue to monitor for bowel activity. We will repeat a chest x-ray in the morning. We will continue with antibiotic therapy as ordered. We will continue to provide general supportive care, GI and DVT prophylaxis. Further orders per attending MD and hospital course. 06/18/2025: For now, we are going to continue the patient management. He will continue on antibiotic therapy as ordered, bronchodilator therapy and steroid also, the patient will continue on antiviral therapy. I am going to order a CT of the chest in a.m. to better evaluate the lung see in the meantime, the patient will also continue on diuretic therapy as ordered. The patient continues on sedation with fentanyl propofol and also on vasopressin. We will monitor the patient's progress and response to management and continue to provide general supportive care, GI and DVT prophylaxis. Further orders per attending MD and hospital course. 08/19/2024: For now, going to continue current management for the patient. He will remain intubated and we will request a ABG to evaluate the respiratory gases. He will remain on sedation with fentanyl and we will attempt to wean if appropriate. Patient is on sedation vacation daily. I am going to request a repeat potassium level now and if needs be, we will continue replacing per the protocol. Also, I am going to start the patient on K-Lyte 25 mEq per the NG b.i.d. He will remain on IV cefazolin as ordered. We will also remain on IV Lasix. We will repeat surveillance labs in the morning. We will monitor the patient's progress. We will continue to provide general supportive care, GI and DVT prophylaxis. Further orders per attending MD and hospital course. 08/20/2024: For now, going to continue current management for the patient. He is still sedated, but we will offer daily sedation vacation. I do not believe the patient is ready to be weaned off the vent. We will continue with the diuretic therapy decrease in the frequency to q.12 and we will increase the steroid dose to Solu-Medrol 60 mg q.6 hours. We will continue to monitor the cardiac function and treat as necessary. The patient will continue with feedings through the OGT currently on Jevity 1.5. We will continue to monitor the blood glucose. I am going to discontinue IV cefazolin. Skin remains intact. We will addressed therapy needs once the patient is stabilized and is able to wean off the vent. We will monitor the patient's progress and response to management. We will continue to provide general supportive care, GI and DVT prophylaxis. Further orders per attending MD and hospital course. NEURO: Minimize central acting medications as possible. Fall Precautions. Well lighted room through the day and minimize interruptions through the night to prevent acute delirium. PULMONARY: Supplemental 02 as needed Titrate Fio2 to keep Spo2 > or = 90% DuoNebs and CPT as needed IS hourly while awake for pulmonary hygiene Out of bed to chair as tolerated VAP Bundle CARDIOVASCULAR: Follow hemodynamics. Titrate vasopressor to keep MAP >65 or systolic blood pressure >95mmHg DIPS: Dopamine LINES: PICC line GI & NUTRITION: Continue nutritional support Aspirations precautions Prokinetic agents and laxatives as needed No bowel movements documented. The patient continues on lactulose and MiraLax. Dietary for tube feeding recommendations KIDNEYS & ELECTROLYTES: Strict monitoring of intake and output Daily weights Avoid nephrotoxic agents Monitor electrolytes and replace as needed Goal urine output of 30mL/hr or 0.5mL/kg/hr Total overnight urinary output was 3.5 L of urine with a negative balance of 353.3. ENDOCRINE: Maintain blood glucose between 100-180 at all times. Insulin sliding scale for blood glucose management INFECTIOUS DISEASE: Trend temperature. Patricio-culture if febrile. Micro: Sputum grew MSSA Blood cultures Urine culture Respiratory cultures Influenza a and B negative (patient is positive for influenza A) COVID-19 negative Antibiotics: Cefazolin Tamiflu HEMATOLOGY & COAGULATION: Monitor H&H. Keep Hgb > 7 Transfuse 1 unit of PRBC for Hgb < 7 Transfuse 1 pack of platelets of platelets < 20, 000 Watch for any signs and symptoms of bleeding SKIN: Pressure ulcer prevention per facility protocol Rehab: PT/OT Prophylaxis: GI: Protonix 30 mg IV push bid DVT: Lovenox Code Status: Full Resuscitation Disposition: ICU Other: Total patient care time exceeds 45 minutes excluding all procedures. Case was discussed and seen with my supervising physician. The above plan was formulated and agreed upon. MONAE FRANCIS NP Aug 20, 2024 11:29
[2024-08-20 13:41] LABS: ABG BASE EXCESS 5.2 mmol/L (-2.0-3.0); ABG HCO3 35.1 mmol/L (21.0-28.0); ABG OXYGEN SATURATION 89.2 % (94.0-98.0); ABG PCO2 76 mmHg (35-48); ABG PH 7.284 (7.350-7.450); CARBON MONOXIDE 0.4 % (0.5-1.5); DEVICE COMMENT RRNIOBE; HHb 10.7; PO2, ARTERIAL BG 64.8 mmHg (83.0-108.0); VENT MODE, BG CPAP PS8 (ROOM AIR)
--- NOTE | 2024-08-20 15:27 | HMCIMG ---
CHEST 1VW HISTORY: Aspiration COMPARISON: 08/20/2024 FINDINGS: A frontal projection of the chest was obtained. Mild bilateral pulmonary infiltrates are seen may be related to mild pulmonary vascular congestion with possible superimposed pneumonitis. The heart is borderline enlarged. The study is limited due to patient's large body habitus. No evidence of aortic calcification is seen. IMPRESSION: 1. Mild bilateral pulmonary infiltrates are seen may be related to mild pulmonary vascular congestion with possible superimposed pneumonitis.
[2024-08-20] MEDS ORDERED: phenylEPHRINE HCL 50 MG in 0.9% NACL 250ML 250 ML IV PRN (15:30)
[2024-08-20] MEDS: Solu-medROL 40MG VIAL IVP SCH (18:00)
[2024-08-20] MEDS: furoSEMIDE 20MG VIAL IV SCH (21:23)
[2024-08-21] VITALS (112 sets, daily range): BP systolic 84–151; BP diastolic 34–90; PULSE 55–122; RESP 20–92; TEMP 98.7–99; O2SAT 93–99
[2024-08-21 04:47] LABS: BASOPHILS # (AUTO) 0.03 K/uL (0.00-0.20); BASOPHILS % (AUTO) 0.2 % (0.0-5.0); EOSINOPHILS # (AUTO) 0.01 K/uL (0.00-0.70); EOSINOPHILS % (AUTO) 0.1 % (0.0-8.0); HEMATOCRIT 48.9 % (42-54); IMMATURE GRANULOCYTE ABSOLUTE 0.24 K/uL (0-1); LYMPHOCYTES # (AUTO) 1.3 K/uL (1.0-4.8); LYMPHOCYTES % (AUTO) 9.8 % (21.0-51.0); MEAN CORPUSCULAR HEMOGLOBIN 30.2 pg (27.0-33.0); MEAN CORPUSCULAR HGB CONC 31.9 g/dL (32.0-36.0); MEAN CORPUSCULAR VOLUME 94.6 fL (79-99); NEUTROPHILS # (AUTO) 10.2 K/uL (1.8-7.7); PLATELET COUNT (AUTO) 238 K/uL (130-400); RED BLOOD CELL COUNT(AUTO) 5.17 MIL/uL (4.50-6.20); RED CELL DISTRIBUTION WIDTH 12.8 % (11.0-15.5); WHITE BLOOD COUNT (AUTO) 12.7 K/uL (4.8-10.8)
[2024-08-21 04:53] LABS: CREATININE 0.4 mg/dL (0.5-1.3); POTASSIUM 3.7 mmol/L (3.5-5.1)
--- NOTE | 2024-08-21 08:57 | HMCIMG ---
CHEST 1VW HISTORY: Pneumonia COMPARISON: 08/20/2024 FINDINGS: A frontal projection of the chest was obtained. There are bilateral pulmonary infiltrates suggestive of pulmonary vascular congestion with possible superimposed pneumonitis. The heart is borderline enlarged. Degenerative changes are seen. No evidence of aortic calcification is seen. IMPRESSION: 1. Bilateral pulmonary infiltrates are seen suggestive of pulmonary vascular congestion with possible superimposed pneumonitis.
[2024-08-21 09:46] LABS: CREATININE 0.5 mg/dL (0.5-1.3); POTASSIUM 4.7 mmol/L (3.5-5.1)
--- NOTE | 2024-08-21 11:39 | PN ---
[facility] PROGRESS NOTE Date Patient Seen: Aug 21, 2024 Time of Visit: 11:30 Supervising Physician:Dr. Pillai Primary Care Physician: [Dr. Zafar Harris ] Outpatient Specialists: [ ] Inpatient Consults: [ ] PROBLEM LIST: Septic Shock POA requiring PRESSORS, resolved 2/2 Gram-positive cocci bacteremia, POA, on repeat neg BC (likely contamination) Acute on chronic hypoxic hypercapnic respiratory failure requiring vent support- POA Intubated POA Elevated D-Dimer Neg DVT Well score for PE 1.5 (Low Risk) Viral community-acquired pneumonia + Influenza A W/ superimposed bacterial Pneumonia -POA 2nd to MSSA COPD/asthma/emphysema exacerbation-POA Constipation with firm abdomen r/o sbo Hypochloremia-POA Hypokalemia Primary hypertension Diabetes mellitus HLD Chronic nicotine disorder Obstructive sleep apnea Polysubstance abuse with tobacco, cocaine and alcohol Fatty Liver Morbid obese, BMI 39.9 INTERVAL HISTORY: "Patient is unable to participate on the HPI due to intubated and sedated. Per ED notes:"The patient is a 59-year-old male with a history of COPD on chronic o2, emphysema, asthma, everyday smoker, diabetes and hypertension who presents to the emergency department with worsening shortness of breath onset 2 days ago. Patient reports occasional productive cough. Denies any fevers.Denies chest p ain. Patient reports he was just discharged two days ago." According to the girlfriend at bedside, patient was doing well in the morning and in the afternoon until about 6:00 p.m. prior to admission when he started getting restless and having a lot of coughing and phlegm. Despite BiPAP treatment at the ED, he was not able to tolerate and blood gas continues to decline leading to intubation. " 08/12/24 AM rounds- patient is sedated with propofol and Versed drip, continues intubated. ABGs improving with a pH of 7.4 pCO2 of 57 PO2 of 205 and bicarb of 35. PF ratio 256. Ventilator settings adjusted to tidal volume of 450, respiratory rate of 26, 60% FiO2 and, peep down to 5. He was requiring minimal vasopressor support with Levophed at 0.04 micrograms/kilogram per minute, blood pressure 123/66 heart rate 58 respiratory rate of 26 O2 sat 98% with a FiO2 of 60%. Patient has Michele catheter with urine output of 350 mL this morning. patient is negative for influenza type a and B and COVID-19. WBCs 17.7 today H&H is similar to yesterday 12.8/42.6 with a platelet count that is 128 K slightly improving from yesterday which were 122 K. neutrophils 92.7 similar to yesterday. Chemistry BUN 18 creatinine 0.7 GFR of 105 kidneys are doing well glucose of 216 mg/dL we will adjust insulin total calcium 1.02 magnesium of 2.6. TSH is 0.48. On last chest x-ray approximately at 01:37 in the morning post intubation ET tube slightly above the aortic notch we will repeat chest x-ray at this time to evaluate placement on x-ray noted to have bilateral pulmonary infiltrates with pulmonary vascular congestion no pneumothorax noted. 08/13/24- Patient has a few episodes with high pressors overnight and he was sedated again with Versed at 10 milligrams/hour and fentanyl at 250 microgra ms/kilogram per minute. This morning we can try switching over to Precedex instead of Versed in preparation for sedation vacation. He has been off Levophed early this morning but now back on minimal dose of 0.01 micrograms/kilogram per minute. Urine output 1.2 L in the last 24 hours with a positive balance of 2.2 L. No bowel movement. WBCs trending down 12.8 H&H is 12.3/40.4 platelet count is 922248 slightly lower than yesterday. Chemistries sodium 139 potassium is 5, carbon dioxide 37 BUN of 18 creatinine of 0.6 and GFR 110, kidneys are doing good. Glucose 112 mg/dL, liver enzymes normal, albumin 2.6 total protein 5.9 procalcitonin 0.32, BNP of 30, patient has spiked a fever overnight of 101.5. Chest x-ray improving, ET tube 4.4 cm above the chencho in good position, with bilateral pulmonary infiltrates, increased pulmonary vascular congestion. Venous Doppler done yesterday normal bilateral lower extremity venous Doppler without evidence of DVT. Pending CTA to rule out PE due to hypoxemia and elevated D-Dimer and on pressors. We will cover for aspiration pneumonia due to spiking fever with Flagyl. We will also panculture. 08/14/24-patient continues on mechanical ventilation and Levophed at 0.05 micrograms/kilogram per minute he is currently heavily sedated with fentanyl and Precedex. We will attempt to fentanyl and leave on Precedex only today. Latest ABGs with the improvement pH of 7.424/51/88.44/32.6. This is likely his baseline given that he was chronic respiratory failure and history of COPD. Patient's temperature is has been decreasing with a T-max of 101.5 yesterday and a T low of 99. I&O balance + 856 mL with a urine output of 1.9 L. WBCs have improved today 7.9 H&H is 12.9/40.6 with a platelet count of 012499 improving, neutrophils are going down as well today 86.9 from 90.1 yesterday. Chemistry kidneys are doing well creatinine 0.5 GFR 116 mg/dL. Procalcitonin is normal glucose 127 mg/dL. Yesterday's recheck of influenza came back positive for type a influenza. He has been started on Tamiflu. On microbiology : Blood cultures growing Gram-positive cocci . Pending final culture. Patient continues on vancomycin, cefepime and Flagyl. Chest x-ray with increased vascular congestion and pulmonary infiltrates. Starting Lasix 20 mg IV q.8 hours. 08/15/24- patient continues on a ventilator. He is easily arousable and following commands only on fentanyl drip at a 150 micrograms/kilogram per minute. Ventilator settings currently assist-control volume control tidal volume of 450 respiratory rate of 24 FiO2 of 70% and PEEP of 6. Those adjustments were made after reason ABG of pH of 7.33 pCO2 of 69 PO2 of 67.1 bicarb of 36.2 and FiO2 70%. Plateau pressure of 28. We will repeat ABG in 2 hours. Urine output 4.4 L with a balance of-2.7 L. WBCs are normal 5.9 H&H is 12.7/41.7 with a platelet count that is 129 K. Chemistry chloride is 100 carbon dioxide 36 BUN of 24. Kidneys are doing good creatinine 0.6 and GFR of 110. Decrease Lasix to 20 mg Q 24 hours IV push which is home dose of 40 mg p.o. Q 24H. Patient is pending chest x-ray for this morning. 08/16/2024: At the time of my evaluation, the patient is lying in bed. The staff nurse reports no acute events overnight. Vital signs reviewed today showed of significance bradycardia in the 40s to 50s. He continues on ventilator support AC VC mode FiO2 of 60%, tidal volume 450 with a PEEP of eight and a PF ratio of 110. He continues on dopamine drip/fentanyl/propofol/Lasix/DuoNebs/Solu-Medrol/Tamiflu/cefepime. Laboratory data of significance showed no major changes on CBC. Chemistry panel shows stable electrolyte and renal parameters. We will cultures in progress and showed no growth. Otherwise, no other concerns. 08/17/2024: At the time of my evaluation, the patient was lying in bed. The staff nurse reports no acute events overnight. Vital signs today, showed stable readings. Laboratory data showed a WBC 7.0, hemoglobin 13.9, hematocrit of 44.2 and a platelet count of 160. Chemistry shows sodium 141, potassium 3.7, chloride 99 BUN 20 creatinine of 0.6 total protein of 6.2 and albumin of 2.4. He continues on dopamine/fentanyl/propofol/Lasix/DuoNebs/Solu-Medrol/Tamiflu/ cefazolin. Imaging today showed same bilateral pulmonary infiltrates with pulmonary vascular congestion and superimposed pneumonitis but improved compared to yesterday. Urine output overnight was 5000 mL the patient still has not had no bowel movement. No new complaint. 06/18/2025: At the time of my evaluation, the patient was lying in bed. He remains intubated and sedated. Laboratory data did not show major changes. Cultures are in progress. Patient continues on antibiotic therapy as ordered. Imaging today still showing bilateral pulmonary infiltrates with superimposed pneumonitis. No other complaint. 08/19/2024: At the time of my evaluation, the patient was lying in bed. He remains intubated and remains intubated with fentanyl drip for sedation and dopamine. His vital signs showed a soft blood pressure 98/60 and heart rate in the upper 60s. He also remains IV Lasix and is on cefazolin IV. The patient completed his Tamiflu treatment. Laboratory data today of significance showed a drop in potassium of 2.9. No new complaint. 08/20/2024: At the time of my evaluation, the patient is lying in bed. He remains sedated and intubated. The staff nurse reports no major events overnight. He continues on diuretic therapy with urinary output. The urine today was discolored greenish which may be secondary to the propofol drip. Vital signs are generally stable. Slight hypokalemia with labs this a.m. renal parameters within normal range. No other complaint. 24 hour I & O: Urine output of a 300 mL mL with a balance of + 993.0 ML Vent mode/ABG: AC mode, pH 7.4, pCO2 49, PO2 67, HC03 35 PF ratio: 160 Plateau pressure: Driving pressure: Sedation Drips: propofol. Pressors: Dopamine, Vasopressin. Antibiotics/antiviral: Cefazolin. Microbiology data: Repeat blood cultures showing no growth final report. Imaging data: Slight improvement of pulmonary vascular congestion. Peribronchial cuffing. Pathology data: None. 08/21/2024. At the time of my evaluation, the patient is lying in bed. He remains vented and sedated. He also continues on pressor therapy with dopamine and Mino-Synephrine. Staff nurse reports no major events overnight. No other complaint. REVIEW OF SYSTEMS: Unable to perform due to patient intubated and sedated. PHYSICAL EXAM: GENERAL: Intubated, awake and following commands. HEENT: EOMI, Sclera non icteric, moist mucosa NECK: Short neck, no JVD, trachea midline LUNGS: rhonchi to left lobes, diminished to rt lower. breath sounds bilaterally. No wheezes HEART: Regular rate and rhythm. Normal S1 and S2, without murmurs ABD: Abdomen obese firm, nontender. Bowel sounds present EXT: No clubbing cyanosis or edema NEURO: Moving all extremities awake alert and following commands. Vital Signs (last 8hr) Date Time Temp Pulse Resp B/P (MAP) Pulse Ox O2 Delivery O2 Flow Rate FiO2 08/21/24 10:17 57 26 08/21/24 10:15 63 45 08/21/24 08:05 101/45 08/21/24 06:57 61 22 129/75 (93) 98 08/21/24 06:52 61 22 116/69 (85) 99 08/21/24 06:47 62 22 109/62 (78) 98 08/21/24 06:44 57 22 08/21/24 06:43 58 45 08/21/24 06:42 62 22 111/68 (82) 99 08/21/24 06:37 62 22 125/71 (89) 99 08/21/24 06:32 59 22 147/81 (103) 99 08/21/24 06:27 58 22 142/78 (99) 97 08/21/24 06:22 55 22 134/79 (97) 98 08/21/24 06:17 55 22 133/78 (96) 98 08/21/24 06:12 56 22 128/73 (91) 98 08/21/24 06:07 55 22 118/73 (88) 99 08/21/24 06:02 58 22 120/72 (88) 97 08/21/24 05:57 58 22 120/69 (86) 97 08/21/24 05:52 67 22 118/77 (91) 97 08/21/24 05:47 84 23 117/75 (89) 97 08/21/24 05:42 107 23 106/75 (85) 96 08/21/24 05:37 122 31 93/75 (81) 96 08/21/24 05:32 121 23 96/61 (73) 97 08/21/24 05:17 117 23 94/60 (71) 96 08/21/24 05:13 122 23 102/34 (56) 96 08/21/24 05:07 110 23 104/60 (75) 96 08/21/24 05:02 93 24 104/62 (76) 08/21/24 04:32 63 22 105/66 (79) 94 08/21/24 04:27 62 22 97/56 (70) 94 08/21/24 04:22 99.0 65 22 97/58 (71) 93 08/21/24 04:17 60 22 88/50 (63) 93 08/21/24 04:12 61 22 90/53 (65) 93 08/21/24 04:07 61 22 100/60 (73) 93 08/21/24 04:02 59 20 110/61 (77) 93 08/21/24 03:57 66 23 92/55 (67) 94 08/21/24 03:52 61 22 94/55 (68) 94 08/21/24 03:47 63 22 94/57 (69) 94 08/21/24 03:42 61 22 94/58 (70) 94 08/21/24 03:37 62 22 94/58 (70) 94 08/21/24 03:32 61 22 94/61 (30) 94 LABS: Hematology Labs: Test 08/21/24 04:21 Range/Units White Blood Count 12.7 H 4.8-10.8 K/uL Red Blood Count 5.17 4.50-6.20 MIL/uL Hemoglobin 15.6 14.0-18.0 g/dL Hematocrit 48.9 42-54 % Mean Corpuscular Volume 94.6 79-99 fL Mean Corpuscular Hemoglobin 30.2 27.0-33.0 pg Mean Corpuscular Hemoglobin Concent 31.9 L 32.0-36.0 g/dL Red Cell Distribution Width 12.8 11.0-15.5 % Platelet Count 238 130-400 K/uL Mean Platelet Volume 9.6 7.5-10.5 fL Immature Granulocyte % (Auto) 1.9 H 0-1 % Neutrophils (%) (Auto) 80.0 H 40.0-77.0 % Lymphocytes (%) (Auto) 9.8 L 21.0-51.0 % Monocytes (%) (Auto) 8.0 3.0-13.0 % Eosinophils (%) (Auto) 0.1 0.0-8.0 % Basophils (%) (Auto) 0.2 0.0-5.0 % Neutrophils # (Auto) 10.2 H 1.8-7.7 K/uL Lymphocytes # (Auto) 1.3 1.0-4.8 K/uL Monocytes # (Auto) 1.0 0.1-1.0 K/uL Eosinophils # (Auto) 0.01 0.00-0.70 K/uL Basophils # (Auto) 0.03 0.00-0.20 K/uL Absolute Immature Granulocyte (auto 0.24 0-1 K/uL Nucleated Red Blood Cells 0.0 0.0-0.19 % Chemistry Labs: Test 08/21/24 09:15 08/21/24 06:47 Range/Units Sodium Level 141 136-145 mmol/L Potassium Level 4.7 3.5-5.1 mmol/L Chloride Level 101 101-111 mmol/L Carbon Dioxide Level 35 H 21-32 mmol/L Blood Urea Nitrogen 24 H 7-18 mg/dL Creatinine 0.5 0.5-1.3 mg/dL Glomerular Filtration Rate Calc 116 >90 mL/min Random Glucose 263 #H 70-105 mg/dL Total Calcium 9.1 8.5-10.1 mg/dL Whole Blood Glucose 195 H 70-110 MG/DL DIAGNOSTICS / RADIOLOGY RESULTS: [ ] PLAN 08/16/2024: For now, going to continue current management for the patient. I am going to increase the Lasix to 20 mg IV Q 8 hours we will also adjust frequency of the DuoNebs to acute for. Because of the persisting bradycardia, I am going to to request a EKG. We will continue to titrate ventilator settings to maintain SpO2 above 92%. At this time, the patient is not ready for SBT's. We will repeat a chest x-ray in the morning. Patient has not had a bowel movement, per the staff nurse, he administered a dose of MiraLax. We will continue to monitor for bowel activity. We will repeat a chest x-ray in the morning. Based on the microbiology data, the patient has a bacterial pneumonia secondary to MSSA, for this I am going to stop vanco and cefepime and start the patient on cefazolin 2 g q.8 hours. We will continue to provide general supportive care, GI and DVT prophylaxis. Further orders per attending MD and hospital course. 08/17/2024: For now, going to continue current management for the patient. I am going to continue with Lasix as ordered and bronchodilator therapy. At this time, the patient is still not ready for SBT's. We will repeat a chest x-ray in the morning. I am going to start the patient on lactulose daily per the OGT until he has a bowel movement then we will continue with p.r.n. We will continue to monitor for bowel activity. We will repeat a chest x-ray in the morning. We will continue with antibiotic therapy as ordered. We will continue to provide general supportive care, GI and DVT prophylaxis. Further orders per attending MD and hospital course. 06/18/2025: For now, we are going to continue the patient management. He will continue on antibiotic therapy as ordered, bronchodilator therapy and steroid also, the patient will continue on antiviral therapy. I am going to order a CT of the chest in a.m. to better evaluate the lung see in the meantime, the patient will also continue on diuretic therapy as ordered. The patient continues on sedation with fentanyl propofol and also on vasopressin. We will monitor the patient's progress and response to management and continue to provide general supportive care, GI and DVT prophylaxis. Further orders per attending MD and hospital course. 08/19/2024: For now, going to continue current management for the patient. He will remain intubated and we will request a ABG to evaluate the respiratory gases. He will remain on sedation with fentanyl and we will attempt to wean if appropriate. Patient is on sedation vacation daily. I am going to request a repeat potassium level now and if needs be, we will continue replacing per the protocol. Also, I am going to start the patient on K-Lyte 25 mEq per the NG b.i.d. He will remain on IV cefazolin as ordered. We will also remain on IV Lasix. We will repeat surveillance labs in the morning. We will monitor the patient's progress. We will continue to provide general supportive care, GI and DVT prophylaxis. Further orders per attending MD and hospital course. 08/20/2024: For now, going to continue current management for the patient. He is still sedated, but we will offer daily sedation vacation. I do not believe the patient is ready to be weaned off the vent. We will continue with the diuretic therapy decrease in the frequency to q.12 and we will increase the steroid dose to Solu-Medrol 60 mg q.6 hours. We will continue to monitor the cardiac function and treat as necessary. The patient will continue with feedings through the OGT currently on Jevity 1.5. We will continue to monitor the blood glucose. I am going to discontinue IV cefazolin. Skin remains intact. We will addressed therapy needs once the patient is stabilized and is able to wean off the vent. We will monitor the patient's progress and response to management. We will continue to provide general supportive care, GI and DVT prophylaxis. Further orders per attending MD and hospital course. 08/21/2024: For now, the patient I am going to continue current management as ordered. We will continue with current respiratory management and steroid dose. No new ABG for review today. We will order a ABG now. We will follow the progress and response to management. Further orders per attending MD and hospital course. NEURO: Lightly sedated Minimize central acting medications as possible. Fall Precautions. Well lighted room through the day and minimize interruptions through the night to prevent acute delirium. PULMONARY: Supplemental 02 as needed Titrate Fio2 to keep Spo2 > or = 90% DuoNebs and CPT as needed IS hourly while awake for pulmonary hygiene went off vent VAP Bundle Oral hygiene/Peridex. Artificial tears We will continue with steroid therapy for one more day, then attempt SBT tomorrow if feasible. CARDIOVASCULAR: Follow hemodynamics. Titrate vasopressor to keep MAP >65 or systolic blood pressure >95mmHg DIPS: Precedex, Diprivan, dopamine, Mino-Synephrine LINES: PICC line GI & NUTRITION: Continue nutritional support Aspirations precautions Prokinetic agents and laxatives as needed No bowel movements documented. The patient continues on lactulose and MiraLax. We will continue OG feedings with Jevity 1.5. KIDNEYS & ELECTROLYTES: Strict monitoring of intake and output Daily weights Avoid nephrotoxic agents Monitor electrolytes and replace as needed Goal urine output of 30mL/hr or 0.5mL/kg/hr Total overnight urinary output was 5 L of urine with a negative balance of 2520. ENDOCRINE: Maintain blood glucose between 100-180 at all times. Insulin sliding scale for blood glucose management INFECTIOUS DISEASE: Trend temperature. Patricio-culture if febrile. Currently afebrile Micro: Blood cultures negative Urine culture negative Respiratory cultures Sputum grew MSSA, patient completed antibiotic course Influenza B negative (patient is positive for influenza A) COVID-19 negative Antibiotics: HEMATOLOGY & COAGULATION: Monitor H&H. Keep Hgb > 7 Transfuse 1 unit of PRBC for Hgb < 7 Transfuse 1 pack of platelets of platelets < 20, 000 Watch for any signs and symptoms of bleeding SKIN: Pressure ulcer prevention per facility protocol Rehab: PT/OT out of bed to chair. Prophylaxis: GI: Protonix 30 mg IV push bid DVT: Lovenox Code Status: Full Resuscitation Disposition: ICU Other: Total patient care time exceeds 45 minutes excluding all procedures. Case was discussed and seen with my supervising physician. The above plan was formulated and agreed upon. MONAE FRANCIS NP Aug 21, 2024 11:39
[2024-08-21 12:11] LABS: ABG BASE EXCESS 8.7 mmol/L (-2.0-3.0); ABG HCO3 34.2 mmol/L (21.0-28.0); ABG OXYGEN SATURATION 94.5 % (94.0-98.0); ABG PCO2 50 mmHg (35-48); ABG PH 7.454 (7.350-7.450); DEVICE COMMENT LR; PO2, ARTERIAL BG 69.4 mmHg (83.0-108.0)
[2024-08-22] VITALS (53 sets, daily range): BP systolic 90–134; BP diastolic 47–102; PULSE 57–134; RESP 15–76; TEMP 98.7–99.2; O2SAT 92–99
[2024-08-22 05:07] LABS: BASOPHILS # (AUTO) 0.02 K/uL (0.00-0.20); BASOPHILS % (AUTO) 0.1 % (0.0-5.0); IMMATURE GRANULOCYTE ABSOLUTE 0.17 K/uL (0-1); LYMPHOCYTES # (AUTO) 0.6 K/uL (1.0-4.8); LYMPHOCYTES % (AUTO) 4.1 % (21.0-51.0); MEAN CORPUSCULAR HEMOGLOBIN 29.2 pg (27.0-33.0); MEAN CORPUSCULAR HGB CONC 30.9 g/dL (32.0-36.0); MEAN CORPUSCULAR VOLUME 94.6 fL (79-99); MONOCYTES # (AUTO) 0.5 K/uL (0.1-1.0); MONOCYTES % (AUTO) 3.7 % (3.0-13.0); NEUTROPHILS # (AUTO) 12.6 K/uL (1.8-7.7); NEUTROPHILS % (AUTO) 90.9 % (40.0-77.0); PLATELET COUNT (AUTO) 220 K/uL (130-400); RED BLOOD CELL COUNT(AUTO) 4.97 MIL/uL (4.50-6.20); RED CELL DISTRIBUTION WIDTH 12.9 % (11.0-15.5); WHITE BLOOD COUNT (AUTO) 13.9 K/uL (4.8-10.8)
[2024-08-22 05:16] LABS: CREATININE 0.5 mg/dL (0.5-1.3); POTASSIUM 4.5 mmol/L (3.5-5.1)
--- NOTE | 2024-08-22 09:06 | HMCIMG ---
CHEST 1VW HISTORY: Pneumonia COMPARISON: 08/21/2024 FINDINGS: A frontal projection of the chest was obtained. There are bilateral pulmonary infiltrates suggestive of pulmonary vascular congestion with possible superimposed pneumonitis. The heart is borderline enlarged. Endotracheal tube is seen with distal tip at 3.2 cm above chencho All the lines and tubes are again seen in place. No evidence of aortic calcification is seen. IMPRESSION: 1. Bilateral pulmonary infiltrates are seen suggestive of pulmonary vascular congestion with possible superimposed pneumonitis.
[2024-08-22 09:25] LABS: CREATININE 0.5 mg/dL (0.5-1.3); POTASSIUM 4.3 mmol/L (3.5-5.1)
--- NOTE | 2024-08-22 12:02 | PN ---
[facility] PROGRESS NOTE Date Patient Seen: Aug 22, 2024 Time of Visit: 12:02 Supervising Physician: Dr Davie Corea Primary Care Physician: [Dr. Zafar Harris ] Outpatient Specialists: [ ] Inpatient Consults: [ ] PROBLEM LIST: Septic Shock POA requiring PRESSORS, resolved 2/2 Gram-positive cocci bacteremia, POA, on repeat neg BC (likely contamination) Acute on chronic hypoxic hypercapnic respiratory failure requiring vent support- POA Intubated POA Elevated D-Dimer Neg DVT Well score for PE 1.5 (Low Risk) Viral community-acquired pneumonia + Influenza A W/ superimposed bacterial Pneumonia -POA 2nd to MSSA COPD/asthma/emphysema exacerbation-POA Constipation with firm abdomen r/o sbo Hypochloremia-POA Hypokalemia Primary hypertension Diabetes mellitus HLD Chronic nicotine disorder Obstructive sleep apnea Polysubstance abuse with tobacco, cocaine and alcohol Fatty Liver Morbid obese, BMI 39.9 INTERVAL HISTORY: "Patient is unable to participate on the HPI due to intubated and sedated. Per ED notes:"The patient is a 59-year-old male with a history of COPD on chronic o2, emphysema, asthma, everyday smoker, diabetes and hypertension who presents to the emergency department with worsening shortness of breath onset 2 days ago. Patient reports occasional productive cough. Denies any fevers.Denies chest pain. Patient reports he was just discharged two days ago." According to the girlfriend at bedside, patient was doing well in the morning and in the afternoon until about 6:00 p.m. prior to admission when he started getting restless and having a lot of coughing and phlegm. Despite BiPAP treatment at the ED, he was not able to tolerate and blood gas continues to decline leading to intubation. " 08/12/24 AM rounds- patient is sedated with propofol and Versed drip, continues intubated. ABGs improving with a pH of 7.4 pCO2 of 57 PO2 of 205 and bicarb of 35. PF ratio 256. Ventilator settings adjusted to tidal volume of 450, respi ratory rate of 26, 60% FiO2 and, peep down to 5. He was requiring minimal vasopressor support with Levophed at 0.04 micrograms/kilogram per minute, blood pressure 123/66 heart rate 58 respiratory rate of 26 O2 sat 98% with a FiO2 of 60%. Patient has Michele catheter with urine output of 350 mL this morning. patient is negative for influenza type a and B and COVID-19. WBCs 17.7 today H&H is similar to yesterday 12.8/42.6 with a platelet count that is 128 K slightly improving from yesterday which were 122 K. neutrophils 92.7 similar to yesterday. Chemistry BUN 18 creatinine 0.7 GFR of 105 kidneys are doing well glucose of 216 mg/dL we will adjust insulin total calcium 1.02 magnesium of 2.6. TSH is 0.48. On last chest x-ray approximately at 01:37 in the morning post intubation ET tube slightly above the aortic notch we will repeat chest x-ray at this time to evaluate placement on x-ray noted to have bilateral pulmonary infiltrates with pulmonary vascular congestion no pneumothorax noted. 08/13/24- Patient has a few episodes with high pressors overnight and he was sedated again with Versed at 10 milligrams/hour and fentanyl at 250 micr ograms/kilogram per minute. This morning we can try switching over to Precedex instead of Versed in preparation for sedation vacation. He has been off Levophed early this morning but now back on minimal dose of 0.01 micrograms/kilogram per minute. Urine output 1.2 L in the last 24 hours with a positive balance of 2.2 L. No bowel movement. WBCs trending down 12.8 H&H is 12.3/40.4 platelet count is 516324 slightly lower than yesterday. Chemistries sodium 139 potassium is 5, carbon dioxide 37 BUN of 18 creatinine of 0.6 and GFR 110, kidneys are doing good. Glucose 112 mg/dL, liver enzymes normal, albumin 2.6 total protein 5.9 procalcitonin 0.32, BNP of 30, patient has spiked a fever overnight of 101.5. Chest x-ray improving, ET tube 4.4 cm above the chencho in good position, with bilateral pulmonary infiltrates, increased pulmonary vascular congestion. Venous Doppler done yesterday normal bilateral lower extremity venous Doppler without evidence of DVT. Pending CTA to rule out PE due to hypoxemia and elevated D-Dimer and on pressors. We will cover for aspiration pneumonia due to spiking fever with Flagyl. We will also panculture. 08/14/24-patient continues on mechanical ventilation and Levophed at 0.05 micrograms/kilogram per minute he is currently heavily sedated with fentanyl and Precedex. We will attempt to fentanyl and leave on Precedex only today. Latest ABGs with the improvement pH of 7.424/51/88.44/32.6. This is likely his baseline given that he was chronic respiratory failure and history of COPD. Patient's temperature is has been decreasing with a T-max of 101.5 yesterday and a T low of 99. I&O balance + 856 mL with a urine output of 1.9 L. WBCs have improved today 7.9 H&H is 12.9/40.6 with a platelet count of [id number] improving, neutrophils are going down as well today 86.9 from 90.1 yesterday. Chemistry kidneys are doing well creatinine 0.5 GFR 116 mg/dL. Procalcitonin is normal glucose 127 mg/dL. Yesterday's recheck of influenza came back positive for type a influenza. He has been started on Tamiflu. On microbiology : Blood cultures growing Gram-positive cocci . Pending final culture. Patient continues on vancomycin, cefepime and Flagyl. Chest x-ray with increased vascular congestion and pulmonary infiltrates. Starting Lasix 20 mg IV q.8 hours. 08/15/24- patient continues on a ventilator. He is easily arousable and following commands only on fentanyl drip at a 150 micrograms/kilogram per minute. Ventilator settings currently assist-control volume control tidal volume of 450 respiratory rate of 24 FiO2 of 70% and PEEP of 6. Those adjustments were made after reason ABG of pH of 7.33 pCO2 of 69 PO2 of 67.1 bicarb of 36.2 and FiO2 70%. Plateau pressure of 28. We will repeat ABG in 2 hours. Urine output 4.4 L with a balance of-2.7 L. WBCs are normal 5.9 H&H is 12.7/41.7 with a platelet count that is 129 K. Chemistry chloride is 100 carbon dioxide 36 BUN of 24. Kidneys are doing good creatinine 0.6 and GFR of 110. Decrease Lasix to 20 mg Q 24 hours IV push which is home dose of 40 mg p.o. Q 24H. Patient is pending chest x-ray for this morning. 08/16/2024: At the time of my evaluation, the patient is lying in bed. The staff nurse reports no acute events overnight. Vital signs reviewed today showed of significance bradycardia in the 40s to 50s. He continues on ventilator support AC VC mode FiO2 of 60%, tidal volume 450 with a PEEP of eight and a PF ratio of 110. He continues on dopamine drip/fentanyl/propofol/Lasix/DuoNebs/Solu-Medrol/Tamiflu/cefepime. Laboratory data of significance showed no major changes on CBC. Chemistry panel shows stable electrolyte and renal parameters. We will cultures in progress and sh owed no growth. Otherwise, no other concerns. 08/17/2024: At the time of my evaluation, the patient was lying in bed. The [facility] nurse reports no acute events overnight. Vital signs today, showed stable readings. Laboratory data showed a WBC 7.0, hemoglobin 13.9, hematocrit of 44.2 and a platelet count of 160. Chemistry shows sodium 141, potassium 3.7, chloride 99 BUN 20 creatinine of 0.6 total protein of 6.2 and albumin of 2.4. He continues on dopamine/fentanyl/propofol/Lasix/DuoNebs/Solu-Medrol/Natacha flu/cefazolin. Imaging today showed same bilateral pulmonary infiltrates with pulmonary vascular congestion and superimposed pneumonitis but improved compared to yesterday. Urine output overnight was 5000 mL the patient still has not had no bowel movement. No new complaint. 06/18/2025: At the time of my evaluation, the patient was lying in bed. He remains intubated and sedated. Laboratory data did not show major changes. Cultures are in progress. Patient continues on antibiotic therapy as ordered. Imaging today still showing bilateral pulmonary infiltrates with superimposed pneumonitis. No other complaint. 08/19/2024: At the time of my evaluation, the patient was lying in bed. He remains intubated and remains intubated with fentanyl drip for sedation and dopamine. His vital signs showed a soft blood pressure 98/60 and heart rate in the upper 60s. He also remains IV Lasix and is on cefazolin IV. The patient completed his Tamiflu treatment. Laboratory data today of significance showed a drop in potassium of 2.9. No new complaint. 08/20/2024: At the time of my evaluation, the patient is lying in bed. He remains sedated and intubated. The staff nurse reports no major events overnight. He continues on diuretic therapy with urinary output. The urine today was discolored greenish which may be secondary to the propofol drip. Vital signs are generally stable. Slight hypokalemia with labs this a.m. renal parameters within normal range. No other complaint. 24 hour I & O: Urine output of a 300 mL mL with a balance of + 993.0 ML Vent mode/ABG: AC mode, pH 7.4, pCO2 49, PO2 67, HC03 35 PF ratio: 160 Plateau pressure: Driving pressure: Sedation Drips: propofol. Pressors: Dopamine, Vasopressin. Antibiotics/antiviral: Cefazolin. Microbiology data: Repeat blood cultures showing no growth final report. Imaging data: Slight improvement of pulmonary vascular congestion. Peribronchial cuffing. Pathology data: None. 08/21/2024. At the time of my evaluation, the patient is lying in bed. He r emains vented and sedated. He also continues on pressor therapy with dopamine and Mino-Synephrine. Staff nurse reports no major events overnight. No other complaint. 08/22/2024: At the time of my evaluation, the patient was lying in bed. Staff nurse reports no acute events overnight. The patient does remain on sedation and is intubated. Family members were present at the bedside. The staff nurse reports no acute events overnight. No new complaint. REVIEW OF SYSTEMS: Unable to perform due to patient intubated and sedated. PHYSICAL EXAM: GENERAL: Intubated, awake and following commands. HEENT: EOMI, Sclera non icteric, moist mucosa NECK: Short neck, no JVD, trachea midline LUNGS: rhonchi to left lobes, diminished to rt lower. breath sounds bilater ally. No wheezes HEART: Regular rate and rhythm. Normal S1 and S2, without murmurs ABD: Abdomen obese firm, nontender. Bowel sounds present EXT: No clubbing cyanosis or edema NEURO: Moving all extremities awake alert and following commands. Vital Signs (last 8hr) Date Time Temp Pulse Resp B/P (MAP) Pulse Ox O2 Delivery O2 Flow Rate FiO2 08/22/24 10:57 74 26 08/22/24 10:44 45 08/22/24 09:47 82 34 130/71 (90) 99 45 08/22/24 09:09 78 45 08/22/24 08:17 85 37 123/75 (91) 99 45 08/22/24 07:17 98.8 83 30 120/102 (108) 97 45 08/22/24 06:44 62 23 08/22/24 06:32 67 45 08/22/24 06:00 60 26 128/69 (88) 96 08/22/24 05:00 64 25 105/59 (74) 96 LABS: Hematology Labs: Test 08/22/24 04:48 Range/Units White Blood Count 13.9 H 4.8-10.8 K/uL Red Blood Count 4.97 4.50-6.20 MIL/uL Hemoglobin 14.5 14.0-18.0 g/dL Hematocrit 47.0 42-54 % Mean Corpuscular Volume 94.6 79-99 fL Mean Corpuscular Hemoglobin 29.2 27.0-33.0 pg Mean Corpuscular Hemoglobin Concent 30.9 L 32.0-36.0 g/dL Red Cell Distribution Width 12.9 11.0-15.5 % Platelet Count 220 130-400 K/uL Mean Platelet Volume 9.9 7.5-10.5 fL Immature Granulocyte % (Auto) 1.2 H 0-1 % Neutrophils (%) (Auto) 90.9 H 40.0-77.0 % Lymphocytes (%) (Auto) 4.1 L 21.0-51.0 % Monocytes (%) (Auto) 3.7 3.0-13.0 % Eosinophils (%) (Auto) 0.0 0.0-8.0 % Basophils (%) (Auto) 0.1 0.0-5.0 % Neutrophils # (Auto) 12.6 H 1.8-7.7 K/uL Lymphocytes # (Auto) 0.6 L 1.0-4.8 K/uL Monocytes # (Auto) 0.5 0.1-1.0 K/uL Eosinophils # (Auto) 0.00 0.00-0.70 K/uL Basophils # (Auto) 0.02 0.00-0.20 K/uL Absolute Immature Granulocyte (auto 0.17 0-1 K/uL Nucleated Red Blood Cells 0.0 0.0-0.19 % White Cell Morphology Comment See comments Chemistry Labs: Test 08/22/24 11:32 08/22/24 08:56 Range/Units Whole Blood Glucose 221 H 70-110 MG/DL Sodium Level 140 136-145 mmol/L Potassium Level 4.3 3.5-5.1 mmol/L Chloride Level 101 101-111 mmol/L Carbon Dioxide Level 35 H 21-32 mmol/L Blood Urea Nitrogen 30 H 7-18 mg/dL Creatinine 0.5 0.5-1.3 mg/dL Glomerular Filtration Rate Calc 116 >90 mL/min Random Glucose 238 H 70-105 mg/dL Total Calcium 9.3 8.5-10.1 mg/dL DIAGNOSTICS / RADIOLOGY RESULTS: [ ] PLAN 08/16/2024: For now, going to continue current management for the patient. I am going to increase the Lasix to 20 mg IV Q 8 hours we will also adjust frequency of the DuoNebs to acute for. Because of the persisting bradycardia, I am going to to request a EKG. We will continue to titrate ventilator settings to maintain SpO2 above 92%. At this time, the patient is not ready for SBT's. We will repeat a chest x-ray in the morning. Patient has not had a bowel movement, per the staff nurse, he administered a dose of MiraLax. We will continue to monitor for bowel activity. We will repeat a chest x-ray in the morning. Based on the microbiology data, the patient has a bacterial pneumonia secondary to MSSA, for this I am going to stop vanco and cefepime and start the patient on cefazolin 2 g q.8 hours. We will continue to provide general supportive care, GI and DVT prophylaxis. Further orders per attending MD and hospital course. 08/17/2024: For now, going to continue current management for the patient. I am going to continue with Lasix as ordered and bronchodilator therapy. At this time, the patient is still not ready for SBT's. We will repeat a chest x-ray in the morning. I am going to start the patient on lactulose daily per the OGT until he has a bowel movement then we will continue with p.r.n. We will continue to monitor for bowel activity. We will repeat a chest x-ray in the morning. We will continue with antibiotic therapy as ordered. We will continue to provide general supportive care, GI and DVT prophylaxis. Further orders per attending MD and hospital course. 06/18/2025: For now, we are going to continue the patient management. He will continue on antibiotic therapy as ordered, bronchodilator therapy and steroid also, the patient will continue on antiviral therapy. I am going to order a CT of the chest in a.m. to better evaluate the lung see in the meantime, the patient will also continue on diuretic therapy as ordered. The patient continues on sedation with fentanyl propofol and also on vasopressin. We will monitor the patient's progress and response to management and continue to provide general supportive care, GI and DVT prophylaxis. Further orders per attending MD and hospital course. 08/19/2024: For now, going to continue current management for the patient. He will remain intubated and we will request a ABG to evaluate the respiratory gases. He will remain on sedation with fentanyl and we will attempt to wean if appropriate. Patient is on sedation vacation daily. I am going to request a repeat potassium level now and if needs be, we will continue replacing per the protocol. Also, I am going to start the patient on K-Lyte 25 mEq per the NG b.i.d. He will remain on IV cefazolin as ordered. We will also remain on IV Lasix. We will repeat surveillance labs in the morning. We will monitor the patient's progress. We will continue to provide general supportive care, GI and DVT prophylaxis. Further orders per attending MD and hospital course. 08/20/2024: For now, going to continue current management for the patient. He is still sedated, but we will offer daily sedation vacation. I do not believe the patient is ready to be weaned off the vent. We will continue with the diuretic therapy decrease in the frequency to q.12 and we will increase the steroid dose to Solu-Medrol 60 mg q.6 hours. We will continue to monitor the cardiac function and treat as necessary. The patient will continue with feedings through the OGT currently on Jevity 1.5. We will continue to monitor the blood glucose. I am going to discontinue IV cefazolin. Skin remains intact. We will addressed therapy needs once the patient is stabilized and is able to wean off the vent. We will monitor the patient's progress and response to management. We will continue to provide general supportive care, GI and DVT prophylaxis. Further orders per attending MD and hospital course. 08/21/2024: For now, the patient I am going to continue current management as ordered. We will continue with current respiratory management and steroid dose. No new ABG for review today. We will order a ABG now. We will follow the progress and response to management. Further orders per attending MD and hospital course. 08/22/2024: We will continue current management for the patient. The plan is to attempt weaning off the vent today. He was changed to CPAP mode and we will request a ABG later today. If the patient tolerates we will extubate. The patient will continue on antibiotic coverage as ordered. NEURO: Minimize central acting medications as possible. Fall Precautions. Well lighted room through the day and minimize interruptions through the night to prevent acute delirium. PULMONARY: Supplemental 02 as needed Titrate Fio2 to keep Spo2 > or = 90% DuoNebs and CPT as needed IS hourly while awake for pulmonary hygiene went off vent VAP Bundle Oral hygiene/Peridex. Artificial tears We will continue with steroid therapy for one more day, then attempt SBT alyssa orrow if feasible. CARDIOVASCULAR: Follow hemodynamics. Titrate vasopressor to keep MAP >65 or systolic blood pressure >95mmHg DIPS: Precedex, Diprivan LINES: PICC line GI & NUTRITION: Continue nutritional support Aspirations precautions Prokinetic agents and laxatives as needed No bowel movements documented. The patient continues on lactulose and MiraLax. We will continue OG feedings with Jevity 1.5. KIDNEYS & ELECTROLYTES: Strict monitoring of intake and output Daily weights Avoid nephrotoxic agents Monitor electrolytes and replace as needed Goal urine output of 30mL/hr or 0.5mL/kg/hr Total overnight urinary output was 1.2 L of urine with a negative balance of 129.7. ENDOCRINE: Maintain blood glucose between 100-180 at all times. Insulin sliding scale for blood glucose management INFECTIOUS DISEASE: Trend temperature. Patricio-culture if febrile. Currently afebrile Micro: Blood cultures negative Urine culture negative Respiratory cultures Sputum grew MSSA, patient completed antibiotic course Influenza B negative (patient is positive for influenza A) COVID-19 negative Antibiotics: HEMATOLOGY & COAGULATION: Monitor H&H. Keep Hgb > 7 Transfuse 1 unit of PRBC for Hgb < 7 Transfuse 1 pack of platelets of platelets < 20, 000 Watch for any signs and symptoms of bleeding SKIN: Pressure ulcer prevention per facility protocol Rehab: PT/OT out of bed to chair. Prophylaxis: GI: Protonix 30 mg IV push bid DVT: Lovenox Code Status: Full Resuscitation Disposition: ICU Other: Total patient care time exceeds 45 minutes excluding all procedures. Case was discussed and seen with my supervising physician. The above plan was formulated and agreed upon. MONAE FRANCIS NP Aug 22, 2024 12:02
[2024-08-22 12:04] LABS: ABG BASE EXCESS 5.4 mmol/L (-2.0-3.0); ABG HCO3 31.2 mmol/L (21.0-28.0); ABG OXYGEN SATURATION 92.1 % (94.0-98.0); ABG PCO2 50 mmHg (35-48); ABG PH 7.416 (7.350-7.450); CPAP, BG 5 cm H2O; PO2, ARTERIAL BG 62.8 mmHg (83.0-108.0); VENT MODE, BG CPAP PS 5 (ROOM AIR)
--- NOTE | 2024-08-22 13:53 | NUR ---
Nutritional f/u Note: Chart, meds, and labs Reviewed. Pt Tf at goal rate and tolerating. Wt Status: current wt 105kg, wt trending downward. Admit wt 109kg. wt change may be due to fluid loss and/or method of weighing. Recommend: -Continue TF Vital af @55ml/hr -RD to provide further recommendations based on clinical progress. -Monitor Tf tolerance, wt, and labs -If No BM >3days consider bowel stimulant. - Please notify RD if additional nutrition concerns arise. Addendum: 08/22/24 at [address] Amended: Links added.
--- NOTE | 2024-08-22 16:33 | NUR ---
[employer] Addendum: 08/22/24 at 1633 by MARIA ESTHER GARCIA, RT RT Amended: Links added.
[2024-08-22] MEDS ORDERED: ZINC OXIDE OINT 56.7 GM TP SCH (21:00)
--- NOTE | 2024-08-22 22:31 | NUR ---
Patient very anxious and agitated history of substance abuse, recently extubated not following protocols and recommendation post extubation to prevent complications such as respiratory distress. Patient s/p extubation started drinking coke and water given by educated and patient doctor recommendations, on aerosol mask, RT and charge nurse spoke to the patient as well non complaint - stated he has come 5 to 6 times to the ICU its not his 1st rodeo. very agitated and threatening nurse to report her. Precedex increased from 1 mcg to 1.2 mcg for agitation. Refuses to take b/p monitoring and ekg at times, removes leads. Bipap was placed pn for tachypnea and labored breathing - wanted ice to drink with while on bipap nurse educated pt about aspiration precautions and not possible to eat ice while on bipap but can have hydration breaks refused and upset.
--- NOTE | 2024-08-22 23:59 | NUR ---
Patient being non complaint reached out for coke on the bedside table and started drinking it while on bipap -nurse had already arranged a water break once RT was here to switch to another mask so patient can drink water with no aspiration. Very agitated and not compliant, patient also NPO pending speech eval for tomorrow. Paged benchmark rikki [employer] as per [employer]RARIAN [place] to give glass of coke with ice if not coughing and vapo therm. Rt made aware. Reported tachypnea and SOB on non rebreather. 02 sat 88% -90 as per [employer]PORATE [employer]RARIAN go ahead and give him coke and ice. nurse made [employer] LIBRARIAN about agitated patient with hx of alcohol and substance abuse with no prn medications with safety concerns for aspiration and injury. Very impulsive and inpatient, no headache reported, no hallucinations, tactile or visual disturbances, mild tremors, increased agitation, no nausea or vomiting, no diaphoresis noted. no pain reported. will cont to monitor - order will be put in by [employer]RARIAN patient struggling to breath noted she is aware. patient FULL CODE. Refusing care and protocols. Congestion and crackles on bilateral lobes.
[2024-08-23] VITALS (73 sets, daily range): BP systolic 91–135; BP diastolic 40–96; PULSE 48–121; RESP 16–81; TEMP 97–99; O2SAT 86–96
[2024-08-23] MEDS ORDERED: hydrOXYzine 25 MG TABLET PO PRN
[2024-08-23 04:45] LABS: BASOPHILS # (AUTO) 0.02 K/uL (0.00-0.20); BASOPHILS % (AUTO) 0.1 % (0.0-5.0); HEMATOCRIT 44.9 % (42-54); IMMATURE GRANULOCYTE ABSOLUTE 0.22 K/uL (0-1); LYMPHOCYTES # (AUTO) 0.7 K/uL (1.0-4.8); LYMPHOCYTES % (AUTO) 3.6 % (21.0-51.0); MEAN CORPUSCULAR HEMOGLOBIN 30.1 pg (27.0-33.0); MEAN CORPUSCULAR HGB CONC 30.7 g/dL (32.0-36.0); MEAN CORPUSCULAR VOLUME 97.8 fL (79-99); MONOCYTES # (AUTO) 0.8 K/uL (0.1-1.0); MONOCYTES % (AUTO) 4.5 % (3.0-13.0); NEUTROPHILS # (AUTO) 16.5 K/uL (1.8-7.7); NEUTROPHILS % (AUTO) 90.6 % (40.0-77.0); PLATELET COUNT (AUTO) 191 K/uL (130-400); RED BLOOD CELL COUNT(AUTO) 4.59 MIL/uL (4.50-6.20); RED CELL DISTRIBUTION WIDTH 12.8 % (11.0-15.5); WHITE BLOOD COUNT (AUTO) 18.3 K/uL (4.8-10.8)
[2024-08-23 04:47] LABS: CREATININE 0.5 mg/dL (0.5-1.3); POTASSIUM 4.1 mmol/L (3.5-5.1)
[2024-08-23 05:19] LABS: PLATELET MORPHOLOGY PLT CLUMPS PRESENT
--- NOTE | 2024-08-23 08:31 | PN ---
[facility] PROGRESS NOTE Date Patient Seen: Aug 23, 2024 Time of Visit: 08:30 Supervising Physician: Quinn Baker MD Primary Care Physician: [Dr. Zafra Harris ] Outpatient Specialists: [ ] Inpatient Consults: [ ] PROBLEM LIST: Septic Shock POA requiring PRESSORS, resolved 2/2 Gram-positive cocci bacteremia, POA, on repeat neg BC (likely contamination) Acute on chronic hypoxic hypercapnic respiratory failure requiring vent support- POA Intubated POA, extubated 08/22/24 Elevated D-Dimer Neg DVT, Well's score for PE 4.5 (moderate risk) pending CTA to r/o PE Viral community-acquired pneumonia + Influenza A W/ superimposed bacterial Pneumonia -POA 2nd to MSSA COPD/asthma/emphysema exacerbation-POA Constipation with firm abdomen r/o sbo Hypochloremia-POA Hypokalemia Primary hypertension Diabetes mellitus HLD Chronic nicotine disorder Obstructive sleep apnea Polysubstance abuse with tobacco, cocaine and alcohol Fatty Liver Morbid obese, BMI 39.9 INTERVAL HISTORY: "Patient is unable to participate on the HPI due to intubated and sedated. Per ED notes:"The patient is a 59-year-old male with a history of COPD on chronic o2, emphysema, asthma, everyday smoker, diabetes and hypertension who presents to the emergency department with worsening shortness of breath onset 2 days ago. Patient reports occasional productive cough. Denies any fevers.Denies chest pain. Patient reports he was just discharged two days ago." According to the girlfriend at bedside, patient was doing well in the morning and in the afternoon until about 6:00 p.m. prior to admission when he started getting restless and having a lot of coughing and phlegm. Despite BiPAP treatment at the ED, he was not able to tolerate and blood gas continues to decline leading to intubation. " 08/12/24 AM rounds- patient is sedated with propofol and Versed drip, continues intubated. ABGs improving with a pH of 7.4 pCO2 of 57 PO2 of 205 and bicarb of 35. PF ratio 256. Ventilator settings adjusted to tidal volume of 450, respiratory rate of 26, 60% FiO2 and, peep down to 5. He was requiring minimal vasopressor support with Levophed at 0.04 micrograms/kilogram per minute, blood pressure 123/66 heart rate 58 respiratory rate of 26 O2 sat 98% with a FiO2 of 60%. Patient has Michele catheter with urine output of 350 mL this morning. patient is negative for influenza type a and B and COVID-19. WBCs 17.7 today H&H is similar to yesterday 12.8/42.6 with a platelet count that is 128 K slightly improving from yesterday which were 122 K. neutrophils 92.7 similar to yesterday. Chemistry BUN 18 creatinine 0.7 GFR of 105 kidneys are doing well glucose of 216 mg/dL we will adjust insulin total calcium 1.02 magnesium of 2.6. TSH is 0.48. On last chest x-ray approximately at 01:37 in the morning post intubation ET tube slightly above the aortic notch we will repeat chest x-ray at this time to evaluate placement on x-ray noted to have bilateral pulmonary infiltrates with pulmonary vascular congestion no pneumothorax noted. 08/13/24- Patient has a few episodes with high pressors overnight and he was sedated again with Versed at 10 milligrams/hour and fentanyl at 250 micrograms/kilogram per minute. This morning we can try switching over to Prece dex instead of Versed in preparation for sedation vacation. He has been off Levophed early this morning but now back on minimal dose of 0.01 micrograms/kilogram per minute. Urine output 1.2 L in the last 24 hours with a positive balance of 2.2 L. No bowel movement. WBCs trending down 12.8 H&H is 12.3/40.4 platelet count is [id number] slightly lower than yesterday. Chemistries sodium 139 potassium is 5, carbon dioxide 37 BUN of 18 creatinine of 0.6 and GFR 110, kidneys are doing good. Glucose 112 mg/dL, liver enzymes normal, albumin 2.6 total protein 5.9 procalcitonin 0.32, BNP of 30, patient has spiked a fever overnight of 101.5. Chest x-ray improving, ET tube 4.4 cm above the chencho in good position, with bilateral pulmonary infiltrates, increased pulmonary vascular congestion. Venous Doppler done yesterday normal bilateral lower extremity venous Doppler without evidence of DVT. Pending CTA to rule out PE due to hypoxemia and elevated D-Dimer and on pressors. We will cover for aspiration pneumonia due to spiking fever with Flagyl. We will also panculture. 08/14/24-patient continues on mechanical ventilation and Levophed at 0.05 micrograms/kilogram per minute he is currently heavily sedated with fentanyl and Precedex. We will attempt to fentanyl and leave on Precedex only today. Latest ABGs with the improvement pH of 7.424/51/88.44/32.6. This is likely his baseline given that he was chronic respiratory failure and history of COPD. Patient's temperature is has been decreasing with a T-max of 101.5 yesterday and a T low of 99. I&O balance + 856 mL with a urine output of 1.9 L. WBCs have improved today 7.9 H&H is 12.9/40.6 with a platelet count of [id number] improving, neutrophils are going down as well today 86.9 from 90.1 yesterday. Chemistry kidneys are doing well creatinine 0.5 GFR 116 mg/dL. Procalcitonin is normal glucose 127 mg/dL. Yesterday's recheck of influenza came back positive for type a influenza. He has been started on Tamiflu. On microbiology : Blood cultures growing Gram-positive cocci . Pending final culture. Patient continues on vancomycin, cefepime and Flagyl. Chest x-ray with increased vascular congestion and pulmonary infiltrates. Starting Lasix 20 mg IV q.8 hours. 08/15/24- patient continues on a ventilator. He is easily arousable and following commands only on fentanyl drip at a 150 micrograms/kilogram per minute. Ventilator settings currently assist-control volume control tidal volume of 450 respiratory rate of 24 FiO2 of 70% and PEEP of 6. Those adjustments were made after reason ABG of pH of 7.33 pCO2 of 69 PO2 of 67.1 bicarb of 36.2 and FiO2 70%. Plateau pressure of 28. We will repeat ABG in 2 hours. Urine output 4.4 L with a balance of-2.7 L. WBCs are normal 5.9 H&H is 12.7/41.7 with a platelet count that is 129 K. Chemistry chloride is 100 carbon dioxide 36 BUN of 24. Kidneys are doing good creatinine 0.6 and GFR of 110. Decrease Lasix to 20 mg Q 24 hours IV push which is home dose of 40 mg p.o. Q 24H. Patient is pending chest x-ray for this morning. 08/16/2024: At the time of my evaluation, the patient is lying in bed. The staff nurse reports no acute events overnight. Vital signs reviewed today showed of significance bradycardia in the 40s to 50s. He continues on ventilator support AC VC mode FiO2 of 60%, tidal volume 450 with a PEEP of eight and a PF ratio of 110. He continues on dopamine drip/fentanyl/propofol/Lasix/DuoNebs/Solu-Medrol/Tamiflu/cefepime. Laboratory data of significance showed no major changes on CBC. Chemistry panel shows stable electrolyte and renal parameters. We will cultures in progress and showed no growth. Otherwise, no other concerns. 08/17/2024: At the time of my evaluation, the patient was lying in bed. The staff nurse reports no acute events overnight. Vital signs today, showed stable readings. Laboratory data showed a WBC 7.0, hemoglobin 13.9, hematocrit of 44.2 and a platelet count of 160. Chemistry shows sodium 141, potassium 3.7, chloride 99 BUN 20 creatinine of 0.6 total protein of 6.2 and albumin of 2.4. He continues on dopamine/fentanyl/propofol/Lasix/DuoNebs/Solu- Medrol/Tamiflu/cefazolin. Imaging today showed same bilateral pulmonary infiltrates with pulmonary vascular congestion and superimposed pneumonitis but improved compared to yesterday. Urine output overnight was 5000 mL the patient still has not had no bowel movement. No new complaint. 06/18/2025: At the time of my evaluation, the patient was lying in bed. He remains intubated and sedated. Laboratory data did not show major changes. Cultures are in progress. Patient continues on antibiotic therapy as ordered. Imaging today still showing bilateral pulmonary infiltrates with superimposed pneumonitis. No other complaint. 08/19/2024: At the time of my evaluation, the patient was lying in bed. He remains intubated and remains intubated with fentanyl drip for sedation and dopamine. His vital signs showed a soft blood pressure 98/60 and heart rate in the upper 60s. He also remains IV Lasix and is on cefazolin IV. The patient completed his Tamiflu treatment. Laboratory data today of significance showed a drop in potassium of 2.9. No new complaint. 08/20/2024: At the time of my evaluation, the patient is lying in bed. He remains sedated and intubated. The staff nurse reports no major events overnight. He continues on diuretic therapy with urinary output. The urine today was discolored greenish which may be secondary to the propofol drip. Vital signs are generally stable. Slight hypokalemia with labs this a.m. renal parameters within normal range. No other complaint. 08/21/2024. At the time of my evaluation, the patient is lying in bed. He remains vented and sedated. He also continues on pressor therapy with dopamine and Mino-Synephrine. Staff nurse reports no major events overnight. No other complaint. 08/22/2024: At the time of my evaluation, the patient was lying in bed. Staff nurse reports no acute events overnight. The patient does remain on sedation and is intubated. Family members were present at the bedside. The staff nurse reports no acute events overnight. No new complaint. 08/23/24- Pt aaox3, On o2 at 8 L via oximizer, saturating 95%. He is hemodynamically stable, ST 107 BPM. Urine output 2.8 L in the last 24 hrs. WBC 18.3, weaning steroids to solumedrol 40 ivp bid, we will continue to wean. Chemistry unremarkable, glucose of 179mg/dl. Chest XR stable cardiomegaly, no acute findings. CTA ordered to rule out PE due to hypoxemia and tachycardia. Otherwise pt has been downgrade from ICU to Med/surg w/ tele. REVIEW OF SYSTEMS: General: No malaise or fever. Neurological: No fainting episodes or seizures. HEENT: No nasal congestion or nasal secretion. Yes for sob on exertion. Respiratory: No cough, shortness of breath, or wheezing Cardiac: No chest pain or palpitations. Gastrointestinal: No vomiting or diarrhea. Genitourinary: No dysuria hematuria. Skin: No rashes or lesions. Hematological: No bruises or bleeding. Musculoskeletal: No joint pains or arthralgias. Psychiatric: No depression or panic attacks. PHYSICAL EXAM: GENERAL: Awake alert and oriented x3 following commands. HEENT: EOMI, Sclera non icteric, moist mucosa NECK: Short neck, no JVD, trachea midline LUNGS: Diminished to all lobes bilaterally,. No wheezes HEART: Regular rate and rhythm. Normal S1 and S2, without murmurs ABD: Abdomen obese firm, nontender. Bowel sounds present EXT: No clubbing cyanosis or edema NEURO: Moving all extremities awake alert and following commands. Vital Signs (last 8hr) Date Time Temp Pulse Resp B/P (MAP) Pulse Ox O2 Delivery O2 Flow Rate FiO2 08/23/24 07:04 51 20 08/23/24 07:02 51 20 Aerosol, Face Mask 8.0 40 08/23/24 06:30 51 23 95 08/23/24 06:18 52 27 99/63 88 Aerosol Face Mask 08/23/24 06:00 48 20 94 08/23/24 05:49 53 39 102/66 100 Aerosol Face Mask 08/23/24 05:30 54 18 92 08/23/24 05:17 49 20 106/59 93 Aerosol Face Mask 08/23/24 05:00 50 20 97 08/23/24 04:48 54 39 98/50 97 Aerosol Face Mask 08/23/24 04:47 86 Aerosol Mask+ 45 08/23/24 04:30 53 27 96 08/23/24 04:17 55 26 100/60 94 Aerosol Face Mask 08/23/24 04:00 98.1 58 56 99 08/23/24 04:00 91 Aerosol Mask+ 45 08/23/24 03:47 51 24 91/48 98 Aerosol Face Mask 08/23/24 03:30 51 22 99 08/23/24 03:17 52 20 08/23/24 03:17 51 24 98/43 100 Aerosol Face Mask 08/23/24 03:00 51 23 100 08/23/24 02:47 53 20 92/45 100 08/23/24 02:30 53 22 100 08/23/24 02:17 53 20 95/43 100 08/23/24 02:00 53 21 98 08/23/24 01:30 54 24 100 08/23/24 01:17 55 23 111/60 99 BIPAP 08/23/24 01:00 55 21 100 08/23/24 01:00 98 24 40 08/23/24 00:51 58 20 08/23/24 00:47 57 25 111/65 100 BIPAP LABS: Hematology Labs: Test 08/23/24 04:18 08/22/24 04:48 Range/Units White Blood Count 18.3 #H 4.8-10.8 K/uL Red Blood Count 4.59 4.50-6.20 MIL/uL Hemoglobin 13.8 L 14.0-18.0 g/dL Hematocrit 44.9 42-54 % Mean Corpuscular Volume 97.8 79-99 fL Mean Corpuscular Hemoglobin 30.1 27.0-33.0 pg Mean Corpuscular Hemoglobin Concent 30.7 L 32.0-36.0 g/dL Red Cell Distribution Width 12.8 11.0-15.5 % Platelet Count 191 130-400 K/uL Mean Platelet Volume 10.3 7.5-10.5 fL Immature Granulocyte % (Auto) 1.2 H 0-1 % Neutrophils (%) (Auto) 90.6 H 40.0-77.0 % Lymphocytes (%) (Auto) 3.6 L 21.0-51.0 % Monocytes (%) (Auto) 4.5 3.0-13.0 % Eosinophils (%) (Auto) 0.0 0.0-8.0 % Basophils (%) (Auto) 0.1 0.0-5.0 % Neutrophils # (Auto) 16.5 H 1.8-7.7 K/uL Lymphocytes # (Auto) 0.7 L 1.0-4.8 K/uL Monocytes # (Auto) 0.8 0.1-1.0 K/uL Eosinophils # (Auto) 0.00 0.00-0.70 K/uL Basophils # (Auto) 0.02 0.00-0.20 K/uL Absolute Immature Granulocyte (auto 0.22 0-1 K/uL Nucleated Red Blood Cells 0.0 0.0-0.19 % Platelet Morphology PLT CLUMPS PRESENT Red Blood Cell Morphology ANISO 1+ White Cell Morphology Comment See comments Chemistry Labs: Test 08/23/24 06:03 08/23/24 04:18 Range/Units Whole Blood Glucose 257 H 70-110 MG/DL Sodium Level 145 136-145 mmol/L Potassium Level 4.1 3.5-5.1 mmol/L Chloride Level 105 101-111 mmol/L Carbon Dioxide Level 36 H 21-32 mmol/L Blood Urea Nitrogen 30 H 7-18 mg/dL Creatinine 0.5 0.5-1.3 mg/dL Glomerular Filtration Rate Calc 116 >90 mL/min Random Glucose 205 H 70-105 mg/dL Total Calcium 8.5 8.5-10.1 mg/dL DIAGNOSTICS / RADIOLOGY RESULTS: IMAGING REPORT Signed PATIENT: CHRISTINE CURTIS MR#: [id number] : 1965 SEX: M AGE: 59 LOCATION: 2CH ORDER 2300 STATUS: ADM IN REPORT#: [id number] SERVICE 0600 REASON: PNA ORDERING PHYSICIAN: MONAE FRANCIS NP PROCEDURE: CXR1VW - CHEST 1VW CHEST 1VW REASON: PNA COMPARISON: 08/22/2024 FINDINGS: There are stable cardiomegaly. There is no pulmonary vascular congestion. Lungs are clear. Mediastinum and bony thorax appear unremarkable. IMPRESSION: 1. Stable cardiomegaly, no acute finding. DICTATED BY: ANDREI GOSS MD DATE: 08/23/241115 ELECTRONICALLY SIGNED BY: ANDREI GOSS MD DATE: 08/23/24 111 PLAN Maintain O2 sats above 92% Continue duo nebs q.6 hours p.r.n. BiPAP at HS and p.r.n. CTA to rule out PE Continue GI and DVT prophylaxis PT to eval and treat Downgrade to medical-surgical with telemetry Continue to wean steroids -Arrange outpatient pulmonology referral for sleep study, PFT and follow-up antonino coleman upon discharge -Valium 10 mg p.o. q.8 hours NEURO: Minimize central acting medications as possible. Fall Precautions. Well lighted room through the day and minimize interruptions through the night to prevent acute delirium. PULMONARY: Supplemental 02 as needed Titrate Fio2 to keep Spo2 > or = 90% DuoNebs and CPT as needed IS hourly while awake for pulmonary hygiene went off vent CARDIOVASCULAR: Follow hemodynamics. Titrate vasopressor to keep MAP >65 or systolic blood pressure >95mmHg DIPS: none LINES: PICC line GI & NUTRITION: Continue nutritional support Aspirations precautions Prokinetic agents and laxatives as needed No bowel movements documented. Mechanical soft diet KIDNEYS & ELECTROLYTES: Strict monitoring of intake and output Daily weights Avoid nephrotoxic agents Monitor electrolytes and replace as needed Goal urine output of 30mL/hr or 0.5mL/kg/hr ENDOCRINE: Maintain blood glucose between 100-180 at all times. Insulin sliding scale for blood glucose management INFECTIOUS DISEASE: Trend temperature. Patricio-culture if febrile. Currently afebrile Micro: Blood cultures negative Urine culture negative Respiratory cultures Sputum grew MSSA, patient completed antibiotic course Influenza B negative (patient is positive for influenza A) COVID-19 negative Antibiotics: HEMATOLOGY & COAGULATION: Monitor H&H. Keep Hgb > 7 Transfuse 1 unit of PRBC for Hgb < 7 Transfuse 1 pack of platelets of platelets < 20, 000 Watch for any signs and symptoms of bleeding SKIN: Pressure ulcer prevention per facility protocol Rehab: PT/OT out of bed to chair. Prophylaxis: GI: Protonix 30 mg IV push bid DVT: Lovenox Code Status: Full Resuscitation Disposition: ICU Other: Total patient care time exceeds 45 minutes excluding all procedures. Case was discussed and seen with my supervising physician. The above plan was formulated and agreed upon. SHEY RENAE Aug 23, 2024 08:31
[2024-08-23] MEDS: diazePAM 5 MG TAB PO PRN (08:45)
[2024-08-23] MEDS: diazePAM 5 MG TAB ONE (08:45)
--- NOTE | 2024-08-23 10:24 | NUR ---
PT AAOX3. NO DISTRESS NOTED. PT HAVING COHERENT CONVERSATION AND VOICED TO DENY ANY INFORMATION TO BE GIVEN TO LEGAL . MADE AWARE OF PT REQUEST.
--- NOTE | 2024-08-23 11:19 | HMCIMG ---
CHEST 1VW REASON: PNA COMPARISON: 08/22/2024 FINDINGS: There are stable cardiomegaly. There is no pulmonary vascular congestion. Lungs are clear. Mediastinum and bony thorax appear unremarkable. IMPRESSION: 1. Stable cardiomegaly, no acute finding.
[2024-08-23] MEDS: LACTULOSE 20 GM/30 ML UDCUP PO ONE (13:39)
[2024-08-23] MEDS: IpraTROPium/alBUTERol SULFATE 3 ML SOLUTION IH SCH (14:01)
--- NOTE | 2024-08-23 15:45 | NUR ---
BEDSIDE SWALLOW EVAL COMPLETED. No s/s of aspiration. Recommend regular solids, thin liquids and pills whole with liquids as tolerated. Compensatory strategies: 1. sit upright during oral intake 2. small bites/sips 3. slow oral intake [employer]ILITIES ENGINEER reviewed results and recommendations with patient/family and nurse Janet. PL[employer] UTILITIES ENGINEER educated patient on risks and consequences of aspiration. Speech therapy not warranted at this time. All questions answered. Addendum: 08/23/[address] [facility] Amended: Links added.
[2024-08-23] MEDS: Solu-medROL 40MG VIAL IVP SCH (17:16)
[2024-08-23] MEDS ORDERED: metoCLOPRAmide 10 MG/2 ML VIAL IV PRN (17:30)
[2024-08-23] MEDS: INSULIN GLARgine 100 UNITS/ML 10 ML VIAL SQ SCH ×2 (20:46→21:20)
[2024-08-23] MEDS: INSULIN humuLIN R 100 UNIT/ML 3ML SQ SCH ×2 (20:47→21:17)
[2024-08-24] VITALS (27 sets, daily range): BP systolic 111–145; BP diastolic 57–78; PULSE 79–111; RESP 17–79; TEMP 96.9–98.2; O2SAT 93–99
--- NOTE | 2024-08-24 00:02 | NUR ---
PT HAS IODINE ALLERGY//ADV ERIC LORENZ AND WILL CONTACT SHEY RENAE WHO PUT IN THE ORDER
[2024-08-24 04:42] LABS: BASOPHILS # (AUTO) 0.06 K/uL (0.00-0.20); BASOPHILS % (AUTO) 0.3 % (0.0-5.0); HEMATOCRIT 47.8 % (42-54); IMMATURE GRANULOCYTE ABSOLUTE 0.28 K/uL (0-1); LYMPHOCYTES # (AUTO) 1.6 K/uL (1.0-4.8); LYMPHOCYTES % (AUTO) 7.1 % (21.0-51.0); MEAN CORPUSCULAR HEMOGLOBIN 30.1 pg (27.0-33.0); MEAN CORPUSCULAR HGB CONC 30.5 g/dL (32.0-36.0); MEAN CORPUSCULAR VOLUME 98.6 fL (79-99); MONOCYTES # (AUTO) 1.9 K/uL (0.1-1.0); MONOCYTES % (AUTO) 8.2 % (3.0-13.0); NEUTROPHILS # (AUTO) 19.1 K/uL (1.8-7.7); NEUTROPHILS % (AUTO) 83.2 % (40.0-77.0); PLATELET COUNT (AUTO) 267 K/uL (130-400); RED BLOOD CELL COUNT(AUTO) 4.85 MIL/uL (4.50-6.20); RED CELL DISTRIBUTION WIDTH 12.6 % (11.0-15.5); WHITE BLOOD COUNT (AUTO) 22.9 K/uL (4.8-10.8)
[2024-08-24 05:11] LABS: CREATININE 0.6 mg/dL (0.5-1.3)
--- NOTE | 2024-08-24 05:36 | NUR ---
TRANSFER FROM ICU PATIENT ARRIVED TO ROOM 331 FROM ICU, SOB NOTED WITH EXERTION, ON 10L OF OXYGEN VIA OXYMIZER. NOTED ABLE TO EXPECTORATE SPUTUM. PATIENT ALERT AND ORIENTED X 4, CONTINUES WITH HOARSE VOICE. PATIENT ON WAFFLE MATRESS, NO EDEMA NOTED TO ARMS AND LEGS, NOTABLE PURPLE BRUISES NOTED TO BILATERAL UPPER EXTREMITIES, PITTING EDEMA NOTED TO HANDS. MORALES CATHETER [address] AND DRAINING CLEAR ORANGE COLORED URINE. PATIENT COMPLAINS OF HEADACHE FOR WHICH HE RECEIVED MEDICATION FOR IN ICU. PATIENT ORIENTED TO ROOM, PLAN OF CARE, CALL LIGHT, DIET. BED LOCKED AND AT LOWEST POSITION, BED ALARM ARMED. CALL LIGHT WITHIN REACH.
--- NOTE | 2024-08-24 06:20 | NUR ---
CT WITH PE PROTOCOL UNABLE TO BE PERFORMED 2nd to allergy to IODINE CONTRAST MEDIA.
[2024-08-24] MEDS: IpraTROPium/alBUTERol SULFATE 3 ML SOLUTION IH PRN (07:05)
[2024-08-24] MEDS ORDERED: furoSEMIDE 40 MG TABLET PO SCH (09:00)
--- NOTE | 2024-08-24 14:51 | PN ---
[facility] PROGRESS NOTE Date Patient Seen: Aug 24, 2024 Time of Visit: 14:51 Supervising Physician: Dr. Quinn Baker Primary Care Physician: [Dr. Zafar Harris ] Outpatient Specialists: [ ] Inpatient Consults: [ ] PROBLEM LIST: Septic Shock POA requiring PRESSORS, resolved 2/2 Gram-positive cocci bacteremia, POA, on repeat neg BC (likely contamination) Acute on chronic hypoxic hypercapnic respiratory failure requiring vent support- POA Intubated POA, extubated 08/22/24 Elevated D-Dimer Neg DVT, Well's score for PE 4.5 (moderate risk) pending CTA to r/o PE Viral community-acquired pneumonia + Influenza A W/ superimposed bacterial Pneumonia -POA 2nd to MSSA COPD/asthma/emphysema exacerbation-POA Constipation with firm abdomen r/o sbo Hypochloremia-POA Hypokalemia Primary hypertension Diabetes mellitus HLD Chronic nicotine disorder Obstructive sleep apnea Polysubstance abuse with tobacco, cocaine and alcohol Fatty Liver Morbid obese, BMI 39.9 INTERVAL HISTORY: Patient evaluated at bedside, currently on 5 L nasal cannula and receiving breathing treatment. Patient denies any chest pain, minor nonproductive cough at this time. Starting patient on 200 mg t.i.d. Tessalon Perles. Patient continues on Solu-Medrol IV which we will continue to taper. Patient's chest x- ray shows possible infiltrates, restarting the patient on IV ceftriaxone at this time, case management to seek SNF authorization. Patient has pending physical therapy at this time. REVIEW OF SYSTEMS: General: No malaise or fever. Neurological: No fainting episodes or seizures. HEENT: No nasal congestion or nasal secretion. Yes for sob on exertion. Respiratory: No cough, shortness of breath, or wheezing Cardiac: No chest pain or palpitations. Gastrointestinal: No vomiting or diarrhea. Genitourinary: No dysuria hematuria. Skin: No rashes or lesions. Hematological: No bruises or bleeding. Musculoskeletal: No joint pains or arthralgias. Psychiatric: No depression or panic attacks. PHYSICAL EXAM: GENERAL: Awake alert and oriented x3 following commands. HEENT: EOMI, Sclera non icteric, moist mucosa NECK: Short neck, no JVD, trachea midline LUNGS: Diminished to all lobes bilaterally,. No wheezes HEART: Regular rate and rhythm. Normal S1 and S2, without murmurs ABD: Abdomen obese firm, nontender. Bowel sounds present EXT: No clubbing cyanosis or edema NEURO: Moving all extremities awake alert and following commands. Vital Signs (last 8hr) Date Time Temp Pulse Resp B/P (MAP) Pulse Ox O2 Delivery O2 Flow Rate FiO2 08/24/24 12:00 98.2 92 20 145/65 N/C High Flow System 10.0 08/24/24 11:38 79 22 N/Cannula Oximizer Hi LPM 6.0 08/24/24 11:36 79 22 08/24/24 08:10 97 N/C Oxymizer Hi LPM* 8 60 08/24/24 08:00 97.0 96 20 129/78 97 N/C High Flow System 10.0 08/24/24 07:08 97 20 N/Cannula Oximizer Hi LPM 8.0 08/24/24 07:06 97 24 LABS: Hematology Labs: Test 08/24/24 04:27 08/23/24 04:18 Range/Units White Blood Count 22.9 H 4.8-10.8 K/uL Red Blood Count 4.85 4.50-6.20 MIL/uL Hemoglobin 14.6 14.0-18.0 g/dL Hematocrit 47.8 42-54 % Mean Corpuscular Volume 98.6 79-99 fL Mean Corpuscular Hemoglobin 30.1 27.0-33.0 pg Mean Corpuscular Hemoglobin Concent 30.5 L 32.0-36.0 g/dL Red Cell Distribution Width 12.6 11.0-15.5 % Platelet Count 267 # 130-400 K/uL Mean Platelet Volume 9.8 7.5-10.5 fL Immature Granulocyte % (Auto) 1.2 H 0-1 % Neutrophils (%) (Auto) 83.2 H 40.0-77.0 % Lymphocytes (%) (Auto) 7.1 L 21.0-51.0 % Monocytes (%) (Auto) 8.2 3.0-13.0 % Eosinophils (%) (Auto) 0.0 0.0-8.0 % Basophils (%) (Auto) 0.3 0.0-5.0 % Neutrophils # (Auto) 19.1 H 1.8-7.7 K/uL Lymphocytes # (Auto) 1.6 1.0-4.8 K/uL Monocytes # (Auto) 1.9 H 0.1-1.0 K/uL Eosinophils # (Auto) 0.00 0.00-0.70 K/uL Basophils # (Auto) 0.06 0.00-0.20 K/uL Absolute Immature Granulocyte (auto 0.28 0-1 K/uL Nucleated Red Blood Cells 0.0 0.0-0.19 % Platelet Morphology PLT CLUMPS PRESENT Red Blood Cell Morphology ANISO 1+ Chemistry Labs: Test 08/24/24 11:14 08/24/24 04:27 Range/Units Whole Blood Glucose 142 H 70-110 MG/DL Sodium Level 144 136-145 mmol/L Potassium Level 4.0 3.5-5.1 mmol/L Chloride Level 103 101-111 mmol/L Carbon Dioxide Level 38 H 21-32 mmol/L Blood Urea Nitrogen 36 H 7-18 mg/dL Creatinine 0.6 0.5-1.3 mg/dL Glomerular Filtration Rate Calc 110 >90 mL/min Random Glucose 102 70-105 mg/dL Total Calcium 9.4 8.5-10.1 mg/dL Procalcitonin < 0.05 L 0.05-0.5 ng/mL DIAGNOSTICS / RADIOLOGY RESULTS: [ ] PLAN NEURO: Minimize central acting medications as possible. Maintain fall precautions, adequate lighting during the day PULMONARY: Supplemental 02 as needed. Maintain aspiration precautions at all times CARDIOVASCULAR: Follow hemodynamics. Vital signs per facility protocol GI & NUTRITION: Continue with nutritional support. Continue stool softeners and laxatives as needed. KIDNEYS & ELECTROLYTES: Strict monitoring of intake, output and overall fluid balance. Avoid nephrotoxic medications to the extent possible. Medications to be dosed according to renal function. Monitor electrolytes and replace as needed ENDOCRINE: Maintain blood glucose between 100-180 at all times. Hypoglycemia protocol in place INFECTIOUS DISEASE: Trend temperature, WBC and procalcitonin level Follow cultures, deescalate antibiotics as soon as possible. Panculture if new onset fever ONCOLOGY/HEMATOLOGY/COAGULATION: Monitor for s/s of bleeding Monitor hemoglobin, coagulation studies as needed SKIN: Pressure ulcer prevention per facility protocol Specialty mattress ORTHO/REHAB: Continue PT/OT Prophylaxis: Continue GI and DVT prophylaxis Code Status: Full Resuscitation Disposition: TBD Other: Total patient care time: 35 minutes ANASTACIO MALHOTRA Aug 24, 2024 14:51
[2024-08-24] MEDS: cefTRIAXone 1G VIAL IVPB SCH (17:00)
[2024-08-25] VITALS (18 sets, daily range): BP systolic 96–132; BP diastolic 42–94; PULSE 76–155; RESP 18–34; TEMP 98–98.4; O2SAT 93–98
--- NOTE | 2024-08-25 03:15 | NUR ---
NEW ONSET AFIB REPORTED BY TELEMETRY CHANGE IN RHYTHM TO ATRIAL FIBRILLATION IN 140-160'S. PATIENT NOTED ASLEEP IN BED, EASILY AWAKENED BY VOICE, DENIES PAIN, NO SOB AT THIS TIME. BIPAP IN PLACE, NO AIR LEAK NOTED. HOB ELEVATED, BED ALARM ARMED. V/S: 132/82 HR 142 ON TELEMETRY, SPO2 OF 99% ON BIPAP. REPORTED FINDINGS TO NONOG ANGLE [employer], NEW ORDER FOR 2.5ML OF METOPROLOL TARTRATE IV ONCE, THEN IF DOES NOT CONVERT BACK TO SINUS RHYTHM TO ORDER METOPROLOL TARTRATE 2.5ML EVERY 6 HOURS NEEDED FOR HR OF GREATER THAN 110. ORDER FOLLOWED THROUGH, PATIENT AWARE OF ORDERS.
[2024-08-25] MEDS: metoPROLOL tartRATE 1 MG/ML 5ML VIAL IV ONE ×2 (03:21→05:30)
[2024-08-25] MEDS ORDERED: metoPROLOL tartRATE 1 MG/ML 5ML VIAL IV PRN (04:00)
[2024-08-25 04:11] LABS: BASOPHILS # (AUTO) 0.02 K/uL (0.00-0.20); BASOPHILS % (AUTO) 0.1 % (0.0-5.0); HEMATOCRIT 47.2 % (42-54); IMMATURE GRANULOCYTE ABSOLUTE 0.17 K/uL (0-1); LYMPHOCYTES # (AUTO) 0.7 K/uL (1.0-4.8); LYMPHOCYTES % (AUTO) 4.6 % (21.0-51.0); MEAN CORPUSCULAR HGB CONC 29.7 g/dL (32.0-36.0); MEAN CORPUSCULAR VOLUME 101.1 fL (79-99); MONOCYTES # (AUTO) 1.2 K/uL (0.1-1.0); MONOCYTES % (AUTO) 7.5 % (3.0-13.0); NEUTROPHILS % (AUTO) 86.7 % (40.0-77.0); PLATELET COUNT (AUTO) 221 K/uL (130-400); RED BLOOD CELL COUNT(AUTO) 4.67 MIL/uL (4.50-6.20); RED CELL DISTRIBUTION WIDTH 12.3 % (11.0-15.5); WHITE BLOOD COUNT (AUTO) 16.2 K/uL (4.8-10.8)
[2024-08-25 04:13] LABS: CREATININE 0.4 mg/dL (0.5-1.3)
--- NOTE | 2024-08-25 06:03 | NUR ---
BIPAP BIPAP USED FOR TOTAL OF 3 HOURS LAST NIGHT, PATIENT STATED MOUTH TOO DRY.
[2024-08-25 07:48] LABS: ABG BASE EXCESS 9.8 mmol/L (-2.0-3.0); ABG HCO3 39.2 mmol/L (21.0-28.0); ABG OXYGEN SATURATION 85.4 % (94.0-98.0); ABG PCO2 76 mmHg (35-48); CARBON MONOXIDE 0.6 % (0.5-1.5); HHb 14.4; PO2, ARTERIAL BG 48.3 mmHg (83.0-108.0); VENT MODE, BG 7L (ROOM AIR)
[2024-08-25] MEDS: metoPROLOL tartRATE 25 MG TAB PO SCH (08:28)
[2024-08-25] MEDS: ENOXAPARIN SODIUM 100 MG/1 ML SQ SCH (08:28)
--- NOTE | 2024-08-25 10:01 | HMCIMG ---
CHEST 1VW REASON: hypoxia COMPARISON: 08/23/2024 FINDINGS: There is mild cardiomegaly. There is mild central vascular congestion. The vascular congestion is new since prior exam. There is no pneumothorax. Right-sided PICC line remains in place. IMPRESSION: 1. Stable cardiomegaly. 2. Interval development of mild pulmonary vascular congestion.
[2024-08-25] MEDS: IpraTROPium 0.5 MG/2.5 ML INH IH SCH (11:34)
[2024-08-25] MEDS: IpraTROPium 0.5 MG/2.5 ML INH IH ONE (11:36)
--- NOTE | 2024-08-25 12:13 | NUR ---
Patient up to chair with PT at [facility]. Pt was upset with nursing due to wanting to get up earlier; pt's HR is high in the 150s,O2 while on BiPap in 98-99%. Patient was educated on nursing having caution with his transfers due to need for oxygen is high HR and increased BLE weakness. Addendum: 08/25/24 at 1218 by RAMÍREZ PORTILLO PTA PT Amended: Links added.
--- NOTE | 2024-08-25 13:01 | NUR ---
Discharge Update: Referral sent to [facility]. Pending insurance authorization.
--- NOTE | 2024-08-25 14:29 | PN ---
[facility] PROGRESS NOTE Date Patient Seen: Aug 25, 2024 Time of Visit: 14:28 Supervising Physician: Dr. Quinn Baker Primary Care Physician: [Dr. Zafar Harris ] Outpatient Specialists: [ ] Inpatient Consults: [ ] PROBLEM LIST: Septic Shock POA requiring PRESSORS, resolved 2/2 Gram-positive cocci bacteremia, POA, on repeat neg BC (likely contamination) Acute on chronic hypoxic hypercapnic respiratory failure requiring vent support- POA Intubated POA, extubated 08/22/24 Elevated D-Dimer Neg DVT, Well's score for PE 4.5 (moderate risk) pending CTA to r/o PE Viral community-acquired pneumonia + Influenza A W/ superimposed bacterial Pneumonia -POA 2nd to MSSA COPD/asthma/emphysema exacerbation-POA Constipation with firm abdomen r/o sbo Hypochloremia-POA Hypokalemia Primary hypertension Diabetes mellitus HLD Chronic nicotine disorder Obstructive sleep apnea Polysubstance abuse with tobacco, cocaine and alcohol Fatty Liver Morbid obese, BMI 39.9 INTERVAL HISTORY: Patient evaluated at bedside, currently on BiPAP as the patient's latest ABG showed that he was acidotic with elevated CO2. The patient's condition appears to be worsening, we will discontinue Rocephin today and start cefepime as well as doxycycline and place the patient on tele monitoring. Blood and sputum cultures to be collected as well. New ABGs in the morning. Patient's white count today decreased to 16.2, he remains on steroids at this time. Patient's pH this morning was 7.3, CO2 at 76, O2 at 48.3, and bicarb at 39.2. Patient appears to be tolerating BiPAP well at this time and we will continue to monitor closely with this change in status. Patient's prognosis remains guarded at this time. REVIEW OF SYSTEMS: General: No malaise or fever. Neurological: No fainting episodes or seizures. HEENT: No nasal congestion or nasal secretion. Yes for sob on exertion. Respiratory: No cough, shortness of breath, or wheezing Cardiac: No chest pain or palpitations. Gastrointestinal: No vomiting or diarrhea. Genitourinary: No dysuria hematuria. Skin: No rashes or lesions. Hematological: No bruises or bleeding. Musculoskeletal: No joint pains or arthralgias. Psychiatric: No depression or panic attacks. PHYSICAL EXAM: GENERAL: Awake alert and oriented x3 following commands. HEENT: EOMI, Sclera non icteric, moist mucosa NECK: Short neck, no JVD, trachea midline LUNGS: Diminished to all lobes bilaterally,. No wheezes HEART: Regular rate and rhythm. Normal S1 and S2, without murmurs ABD: Abdomen obese firm, nontender. Bowel sounds present EXT: No clubbing cyanosis or edema NEURO: Moving all extremities awake alert and following commands. Vital Signs (last 8hr) Date Time Temp Pulse Resp B/P (MAP) Pulse Ox O2 Delivery O2 Flow Rate FiO2 08/25/24 11:37 90 34 50 08/25/24 11:36 90 34 08/25/24 11:05 98.2 104 18 117/89 96 Room Air 21 08/25/24 07:05 22 N/Cannula Oximizer Hi LPM 5.0 40 08/25/24 07:05 98.1 101 18 120/80 96 Nasal Cannula 6.0 LABS: Hematology Labs: Test 08/25/24 03:40 Range/Units White Blood Count 16.2 #H 4.8-10.8 K/uL Red Blood Count 4.67 4.50-6.20 MIL/uL Hemoglobin 14.0 14.0-18.0 g/dL Hematocrit 47.2 42-54 % Mean Corpuscular Volume 101.1 H 79-99 fL Mean Corpuscular Hemoglobin 30.0 27.0-33.0 pg Mean Corpuscular Hemoglobin Concent 29.7 L 32.0-36.0 g/dL Red Cell Distribution Width 12.3 11.0-15.5 % Platelet Count 221 130-400 K/uL Mean Platelet Volume 10.1 7.5-10.5 fL Immature Granulocyte % (Auto) 1.1 H 0-1 % Neutrophils (%) (Auto) 86.7 H 40.0-77.0 % Lymphocytes (%) (Auto) 4.6 L 21.0-51.0 % Monocytes (%) (Auto) 7.5 3.0-13.0 % Eosinophils (%) (Auto) 0.0 0.0-8.0 % Basophils (%) (Auto) 0.1 0.0-5.0 % Neutrophils # (Auto) 14.0 H 1.8-7.7 K/uL Lymphocytes # (Auto) 0.7 L 1.0-4.8 K/uL Monocytes # (Auto) 1.2 H 0.1-1.0 K/uL Eosinophils # (Auto) 0.00 0.00-0.70 K/uL Basophils # (Auto) 0.02 0.00-0.20 K/uL Absolute Immature Granulocyte (auto 0.17 0-1 K/uL Nucleated Red Blood Cells 0.0 0.0-0.19 % Chemistry Labs: Test 08/25/24 11:00 08/25/24 03:40 08/24/24 04:27 Range/Units Whole Blood Glucose 223 H 70-110 MG/DL Sodium Level 148 H 136-145 mmol/L Potassium Level 4.0 3.5-5.1 mmol/L Chloride Level 106 101-111 mmol/L Carbon Dioxide Level 37 H 21-32 mmol/L Blood Urea Nitrogen 25 H 7-18 mg/dL Creatinine 0.4 L 0.5-1.3 mg/dL Glomerular Filtration Rate Calc 124 >90 mL/min Random Glucose 164 #H 70-105 mg/dL Total Calcium 9.0 8.5-10.1 mg/dL Magnesium Level 2.40 1.80-2.40 mg/dL Procalcitonin < 0.05 L 0.05-0.5 ng/mL DIAGNOSTICS / RADIOLOGY RESULTS: [ ] PLAN NEURO: Minimize central acting medications as possible. Maintain fall precautions, adequate lighting during the day PULMONARY: Supplemental 02 as needed. Maintain aspiration precautions at all times CARDIOVASCULAR: Follow hemodynamics. Vital signs per facility protocol GI & NUTRITION: Continue with nutritional support. Continue stool softeners and laxatives as needed. KIDNEYS & ELECTROLYTES: Strict monitoring of intake, output and overall fluid balance. Avoid nephrotoxic medications to the extent possible. Medications to be dosed according to renal function. Monitor electrolytes and replace as needed ENDOCRINE: Maintain blood glucose between 100-180 at all times. Hypoglycemia protocol in place INFECTIOUS DISEASE: Trend temperature, WBC and procalcitonin level Follow cultures, deescalate antibiotics as soon as possible. Panculture if new onset fever ONCOLOGY/HEMATOLOGY/COAGULATION: Monitor for s/s of bleeding Monitor hemoglobin, coagulation studies as needed SKIN: Pressure ulcer prevention per facility protocol Specialty mattress ORTHO/REHAB: Continue PT/OT Prophylaxis: Continue GI and DVT prophylaxis Code Status: Full Resuscitation Disposition: TBD Other: Total patient care time: 35 minutes ANASTACIO MALHOTRA Aug 25, 2024 14:29
[2024-08-25] MEDS: ceFEPime HCL 2 GM VIAL IVPB SCH (22:08)
[2024-08-25] MEDS: DOXYCYCLINE 100MG+NS 250ML 250 ML IV SCH (22:08)
[2024-08-26] VITALS (20 sets, daily range): BP systolic 110–128; BP diastolic 59–79; PULSE 45–105; RESP 20–34; TEMP 97.4–98.2; O2SAT 95–99
[2024-08-26 05:21] LABS: HEMATOCRIT 48.4 % (42-54); MEAN CORPUSCULAR HEMOGLOBIN 29.9 pg (27.0-33.0); MEAN CORPUSCULAR HGB CONC 28.9 g/dL (32.0-36.0); MEAN CORPUSCULAR VOLUME 103.4 fL (79-99); RED BLOOD CELL COUNT(AUTO) 4.68 MIL/uL (4.50-6.20); RED CELL DISTRIBUTION WIDTH 12.2 % (11.0-15.5); WHITE BLOOD COUNT (AUTO) 12.6 K/uL (4.8-10.8)
[2024-08-26 05:31] LABS: CREATININE 0.5 mg/dL (0.5-1.3); POTASSIUM 3.9 mmol/L (3.5-5.1)
[2024-08-26 08:48] LABS: ABG BASE EXCESS 8.1 mmol/L (-2.0-3.0); ABG HCO3 39.4 mmol/L (21.0-28.0); ABG OXYGEN SATURATION 95.8 % (94.0-98.0); ABG PCO2 92 mmHg (35-48); ABG PH 7.251 (7.350-7.450); PO2, ARTERIAL BG 96.2 mmHg (83.0-108.0); VENT MODE, BG OXYMIZER (ROOM AIR)
--- NOTE | 2024-08-26 11:03 | NUR ---
Nutritional f/u Note: Chart, meds, and labs Reviewed. 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 No s/s of aspiration. Recommend regular solids, thin liquids and pills. Diet has been advanced to 30gm cc [facility] soft diet. Current PO intake 50-100% of meals taken. Pt on Bipap. Abnormal nutrition related labs: na 146, Co2 bun 22, Recommend: -continue to encourage PO intake. -RD to provide further recommendations based on clinical progress. -Monitor feeding tolerance, %, wt, and labs -If No BM >3days consider bowel stimulant. - Please notify RD if additional nutrition concerns arise. Addendum: 08/26/24 at [address] Amended: Links added.
[2024-08-26] MEDS: traMADol HCL 50 MG TABLET PO PRN (13:19)
[2024-08-26 13:20] LABS: ABG BASE EXCESS 9.2 mmol/L (-2.0-3.0); ABG HCO3 39.4 mmol/L (21.0-28.0); ABG OXYGEN SATURATION 94.8 % (94.0-98.0); ABG PCO2 82 mmHg (35-48); ABG PH 7.299 (7.350-7.450); PO2, ARTERIAL BG 84.3 mmHg (83.0-108.0); VENT MODE, BG BIPAP 10-5 (ROOM AIR)
--- NOTE | 2024-08-26 13:40 | PN ---
[facility] PROGRESS NOTE Date Patient Seen: Aug 26, 2024 Time of Visit: 13:39 Supervising Physician: Dr. Joel Soto Primary Care Physician: [Dr. Zafar Harris ] Outpatient Specialists: [ ] Inpatient Consults: [ ] PROBLEM LIST: Septic Shock POA requiring PRESSORS, resolved 2/2 Gram-positive cocci bacteremia, POA, on repeat neg BC (likely contamination) Acute on chronic hypoxic hypercapnic respiratory failure requiring vent support- POA Intubated POA, extubated 08/22/24 Elevated D-Dimer Neg DVT, Well's score for PE 4.5 (moderate risk) pending CTA to r/o PE Viral community-acquired pneumonia + Influenza A W/ superimposed bacterial Pneumonia -POA 2nd to MSSA COPD/asthma/emphysema exacerbation-POA Constipation with firm abdomen r/o sbo Hypochloremia-POA Hypokalemia Primary hypertension Diabetes mellitus HLD Chronic nicotine disorder Obstructive sleep apnea Polysubstance abuse with tobacco, cocaine and alcohol Fatty Liver Morbid obese, BMI 39.9 INTERVAL HISTORY: Patient was seen at bedside today, remains on BiPAP at this time. Blood gas this morning showed a pH of 7.2 and a CO2 of 92. Patient was start restarted on BiPAP this morning as I was told in report that he had not been on BiPAP overnight. Nursing staff with his advised to restrict orders to remain on BiPAP throughout the day, ABGs at approximately 1:00 p.m. showed improved CO2 at 82 today. We will continue with BiPAP and re-evaluate ABGs again in the morning. Patient continues on cefepime and doxycycline at this time, pending blood cultures, no further issues reported. We will withdraw our request to seek SNF authorization at this time as the patient has decompensated and will require further hospitalization. Once the patient has been stabilized we will begin the process of SNF authorization once again. REVIEW OF SYSTEMS: General: No malaise or fever. Neurological: No fainting episodes or seizures. HEENT: No nasal congestion or nasal secretion. Yes for sob on exertion. Respiratory: No cough, shortness of breath, or wheezing Cardiac: No chest pain or palpitations. Gastrointestinal: No vomiting or diarrhea. Genitourinary: No dysuria hematuria. Skin: No rashes or lesions. Hematological: No bruises or bleeding. Musculoskeletal: No joint pains or arthralgias. Psychiatric: No depression or panic attacks. PHYSICAL EXAM: GENERAL: Awake alert and oriented x3 following commands. HEENT: EOMI, Sclera non icteric, moist mucosa NECK: Short neck, no JVD, trachea midline LUNGS: Diminished to all lobes bilaterally,. No wheezes HEART: Regular rate and rhythm. Normal S1 and S2, without murmurs ABD: Abdomen obese firm, nontender. Bowel sounds present EXT: No clubbing cyanosis or edema NEURO: Moving all extremities awake alert and following commands. Vital Signs (last 8hr) Date Time Temp Pulse Resp B/P (MAP) Pulse Ox O2 Delivery O2 Flow Rate FiO2 08/26/24 11:21 82 22 08/26/24 11:21 82 34 50 08/26/24 08:50 96 30 50 08/26/24 08:00 98 N/C Oxymizer Hi LPM* 8 60 08/26/24 07:53 97.5 45 20 121/79 100 N/C High Flow System 7.0 08/26/24 07:03 74 21 N/Cannula Oximizer Hi LPM 7.0 08/26/24 06:47 98 22 08/26/24 06:42 98 22 50 LABS: Hematology Labs: Test 08/26/24 05:10 08/25/24 03:40 Range/Units White Blood Count 12.6 H 4.8-10.8 K/uL Red Blood Count 4.68 4.50-6.20 MIL/uL Hemoglobin 14.0 14.0-18.0 g/dL Hematocrit 48.4 42-54 % Mean Corpuscular Volume 103.4 H 79-99 fL Mean Corpuscular Hemoglobin 29.9 27.0-33.0 pg Mean Corpuscular Hemoglobin Concent 28.9 L 32.0-36.0 g/dL Red Cell Distribution Width 12.2 11.0-15.5 % Platelet Count 167 130-400 K/uL Mean Platelet Volume 9.7 7.5-10.5 fL Nucleated Red Blood Cells 0.0 0.0-0.19 % Immature Granulocyte % (Auto) 1.1 H 0-1 % Neutrophils (%) (Auto) 86.7 H 40.0-77.0 % Lymphocytes (%) (Auto) 4.6 L 21.0-51.0 % Monocytes (%) (Auto) 7.5 3.0-13.0 % Eosinophils (%) (Auto) 0.0 0.0-8.0 % Basophils (%) (Auto) 0.1 0.0-5.0 % Neutrophils # (Auto) 14.0 H 1.8-7.7 K/uL Lymphocytes # (Auto) 0.7 L 1.0-4.8 K/uL Monocytes # (Auto) 1.2 H 0.1-1.0 K/uL Eosinophils # (Auto) 0.00 0.00-0.70 K/uL Basophils # (Auto) 0.02 0.00-0.20 K/uL Absolute Immature Granulocyte (auto 0.17 0-1 K/uL Chemistry Labs: Test 08/26/24 10:44 08/26/24 05:10 08/25/24 03:40 Range/Units Whole Blood Glucose 201 #H 70-110 MG/DL Sodium Level 146 H 136-145 mmol/L Potassium Level 3.9 3.5-5.1 mmol/L Chloride Level 106 101-111 mmol/L Carbon Dioxide Level 44 *H 21-32 mmol/L Blood Urea Nitrogen 22 H 7-18 mg/dL Creatinine 0.5 0.5-1.3 mg/dL Glomerular Filtration Rate Calc 116 >90 mL/min Random Glucose 145 H 70-105 mg/dL Total Calcium 8.9 8.5-10.1 mg/dL Magnesium Level 2.40 1.80-2.40 mg/dL DIAGNOSTICS / RADIOLOGY RESULTS: [ ] PLAN NEURO: Minimize central acting medications as possible. Maintain fall precautions, adequate lighting during the day PULMONARY: Supplemental 02 as needed. Maintain aspiration precautions at all times CARDIOVASCULAR: Follow hemodynamics. Vital signs per facility protocol GI & NUTRITION: Continue with nutritional support. Continue stool softeners and laxatives as needed. KIDNEYS & ELECTROLYTES: Strict monitoring of intake, output and overall fluid balance. Avoid nephrotoxic medications to the extent possible. Medications to be dosed according to renal function. Monitor electrolytes and replace as needed ENDOCRINE: Maintain blood glucose between 100-180 at all times. Hypoglycemia protocol in place INFECTIOUS DISEASE: Trend temperature, WBC and procalcitonin level Follow cultures, deescalate antibiotics as soon as possible. Panculture if new onset fever ONCOLOGY/HEMATOLOGY/COAGULATION: Monitor for s/s of bleeding Monitor hemoglobin, coagulation studies as needed SKIN: Pressure ulcer prevention per facility protocol Specialty mattress ORTHO/REHAB: Continue PT/OT Prophylaxis: Continue GI and DVT prophylaxis Code Status: Full Resuscitation Disposition: TBD Other: Total patient care time: 35 minutes ANASTACIO MALHOTRA Aug 26, 2024 13:40
--- NOTE | 2024-08-26 13:40 | NUR ---
ABGS INFORMED ANASTACIO BE REGARDING ABGS, PA STATED THAT IT IS IMPROVEMENT AND TO MAKE SURE PATIENT KEEPS BIPAP ON.
[2024-08-27] VITALS (16 sets, daily range): BP systolic 103–122; BP diastolic 50–67; PULSE 69–109; RESP 20–32; TEMP 97.4–98.4; O2SAT 96–98
[2024-08-27 05:53] LABS: ABG BASE EXCESS 8.6 mmol/L (-2.0-3.0); ABG HCO3 39.4 mmol/L (21.0-28.0); ABG PCO2 87 mmHg (35-48); ABG PH 7.272 (7.350-7.450); DEVICE COMMENT LR; PO2, ARTERIAL BG 77.5 mmHg (83.0-108.0); VENT MODE, BG BPAP14-7 (ROOM AIR)
[2024-08-27 06:19] LABS: HEMATOCRIT 44.4 % (42-54); MEAN CORPUSCULAR HEMOGLOBIN 30.1 pg (27.0-33.0); MEAN CORPUSCULAR HGB CONC 29.5 g/dL (32.0-36.0); MEAN CORPUSCULAR VOLUME 102.1 fL (79-99); RED BLOOD CELL COUNT(AUTO) 4.35 MIL/uL (4.50-6.20); WHITE BLOOD COUNT (AUTO) 10.7 K/uL (4.8-10.8)
[2024-08-27 06:33] LABS: CREATININE 0.4 mg/dL (0.5-1.3); POTASSIUM 3.6 mmol/L (3.5-5.1)
--- NOTE | 2024-08-27 13:20 | PN ---
[facility] PROGRESS NOTE Date Patient Seen: Aug 27, 2024 Time of Visit: 13:17 Supervising Physician: Dr. Joel Soto Primary Care Physician: [Dr. Zafar Harris ] Outpatient Specialists: [ ] Inpatient Consults: [ ] PROBLEM LIST: Septic Shock POA requiring PRESSORS, resolved 2/2 Gram-positive cocci bacteremia, POA, on repeat neg BC (likely contamination) Acute on chronic hypoxic hypercapnic respiratory failure requiring vent support- POA Intubated POA, extubated 08/22/24 Elevated D-Dimer Neg DVT, Well's score for PE 4.5 (moderate risk) pending CTA to r/o PE Viral community-acquired pneumonia + Influenza A W/ superimposed bacterial Pneumonia -POA 2nd to MSSA COPD/asthma/emphysema exacerbation-POA Constipation with firm abdomen r/o sbo Hypochloremia-POA Hypokalemia Primary hypertension Diabetes mellitus HLD Chronic nicotine disorder Obstructive sleep apnea Polysubstance abuse with tobacco, cocaine and alcohol Fatty Liver Morbid obese, BMI 39.9 INTERVAL HISTORY: Patient evaluated at bedside, he remains on BiPAP at this time. Patient's CO2 levels were 87 this morning, increased from yesterday's latest ABG at 82. Patient was once again educated on the need for BiPAP to reduce the CO2 level in the blood. States he understands and will continue to wear the BiPAP for the time being. Patient continues on cefepime and doxycycline as well as tele monitoring. Pending blood cultures at this time. White count today is 10.7, hemoglobin stable at 13.1. Patient's renal function is within normal limits. We will continue to monitor his progress closely and follow with another morning blood gas. Patient to remain on BiPAP unconditionally. REVIEW OF SYSTEMS: General: No malaise or fever. Neurological: No fainting episodes or seizures. HEENT: No nasal congestion or nasal secretion. Yes for sob on exertion. Respiratory: No cough, shortness of breath, or wheezing Cardiac: No chest pain or palpitations. Gastrointestinal: No vomiting or diarrhea. Genitourinary: No dysuria hematuria. Skin: No rashes or lesions. Hematological: No bruises or bleeding. Musculoskeletal: No joint pains or arthralgias. Psychiatric: No depression or panic attacks. PHYSICAL EXAM: GENERAL: Awake alert and oriented x3 following commands. HEENT: EOMI, Sclera non icteric, moist mucosa NECK: Short neck, no JVD, trachea midline LUNGS: Diminished to all lobes bilaterally,. No wheezes HEART: Regular rate and rhythm. Normal S1 and S2, without murmurs ABD: Abdomen obese firm, nontender. Bowel sounds present EXT: No clubbing cyanosis or edema NEURO: Moving all extremities awake alert and following commands. Vital Signs (last 8hr) Date Time Temp Pulse Resp B/P (MAP) Pulse Ox O2 Delivery O2 Flow Rate FiO2 08/27/24 11:50 84 28 08/27/24 11:45 84 28 40 08/27/24 09:00 69 25 08/27/24 08:55 69 25 40 08/27/24 08:00 98.2 81 20 103/50 100 BIPAP LABS: Hematology Labs: Test 08/27/24 06:02 Range/Units White Blood Count 10.7 4.8-10.8 K/uL Red Blood Count 4.35 L 4.50-6.20 MIL/uL Hemoglobin 13.1 L 14.0-18.0 g/dL Hematocrit 44.4 42-54 % Mean Corpuscular Volume 102.1 H 79-99 fL Mean Corpuscular Hemoglobin 30.1 27.0-33.0 pg Mean Corpuscular Hemoglobin Concent 29.5 L 32.0-36.0 g/dL Red Cell Distribution Width 12.0 11.0-15.5 % Platelet Count 153 130-400 K/uL Mean Platelet Volume 10.9 H 7.5-10.5 fL Nucleated Red Blood Cells 0.0 0.0-0.19 % Chemistry Labs: Test 08/27/24 10:47 08/27/24 06:02 Range/Units Whole Blood Glucose 248 #H 70-110 MG/DL Sodium Level 144 136-145 mmol/L Potassium Level 3.6 3.5-5.1 mmol/L Chloride Level 105 101-111 mmol/L Carbon Dioxide Level 37 H 21-32 mmol/L Blood Urea Nitrogen 22 H 7-18 mg/dL Creatinine 0.4 L 0.5-1.3 mg/dL Glomerular Filtration Rate Calc 124 >90 mL/min Random Glucose 126 H 70-105 mg/dL Total Calcium 8.8 8.5-10.1 mg/dL DIAGNOSTICS / RADIOLOGY RESULTS: [ ] PLAN NEURO: Minimize central acting medications as possible. Maintain fall precautions, adequate lighting during the day PULMONARY: Supplemental 02 as needed. Maintain aspiration precautions at all times CARDIOVASCULAR: Follow hemodynamics. Vital signs per facility protocol GI & NUTRITION: Continue with nutritional support. Continue stool softeners and laxatives as needed. KIDNEYS & ELECTROLYTES: Strict monitoring of intake, output and overall fluid balance. Avoid nephrotoxic medications to the extent possible. Medications to be dosed according to renal function. Monitor electrolytes and replace as needed ENDOCRINE: Maintain blood glucose between 100-180 at all times. Hypoglycemia protocol in place INFECTIOUS DISEASE: Trend temperature, WBC and procalcitonin level Follow cultures, deescalate antibiotics as soon as possible. Panculture if new onset fever ONCOLOGY/HEMATOLOGY/COAGULATION: Monitor for s/s of bleeding Monitor hemoglobin, coagulation studies as needed SKIN: Pressure ulcer prevention per facility protocol Specialty mattress ORTHO/REHAB: Continue PT/OT Prophylaxis: Continue GI and DVT prophylaxis Code Status: Full Resuscitation Disposition: TBD Other: Total patient care time: 35 minutes ANASTACIO MALHOTRA Aug 27, 2024 13:20
[2024-08-28] VITALS (15 sets, daily range): BP systolic 97–125; BP diastolic 54–62; PULSE 69–101; RESP 18–30; TEMP 97.2–98.2; O2SAT 96–99
[2024-08-28 05:02] LABS: ABG HCO3 42.8 mmol/L (21.0-28.0); ABG OXYGEN SATURATION 88.8 % (94.0-98.0); ABG PCO2 81 mmHg (35-48); ABG PH 7.344 (7.350-7.450); DEVICE COMMENT LR RN; VENT MODE, BG BIPAP 14,7 (ROOM AIR)
[2024-08-28 06:27] LABS: HEMATOCRIT 43.2 % (42-54); MEAN CORPUSCULAR HEMOGLOBIN 30.1 pg (27.0-33.0); MEAN CORPUSCULAR HGB CONC 29.2 g/dL (32.0-36.0); MEAN CORPUSCULAR VOLUME 103.1 fL (79-99); RED BLOOD CELL COUNT(AUTO) 4.19 MIL/uL (4.50-6.20); RED CELL DISTRIBUTION WIDTH 11.9 % (11.0-15.5); WHITE BLOOD COUNT (AUTO) 9.7 K/uL (4.8-10.8)
[2024-08-28 06:45] LABS: CREATININE 0.3 mg/dL (0.5-1.3); POTASSIUM 3.5 mmol/L (3.5-5.1)
--- NOTE | 2024-08-28 09:03 | HMCIMG ---
CHEST 1VW REASON: pneumonia COMPARISON: 08/25/2024 FINDINGS: There is increasing cardiomegaly. There is increasing pulmonary vascular congestion. There is a right pleural effusion. IMPRESSION: 1. Increasing cardiomegaly and pulmonary vascular congestion.
--- NOTE | 2024-08-28 12:12 | NUR ---
DCP UPDATE/WOH Pt now requesting [facility] instead of [facility]. [facility]/PC obtained. Per Magan BE, plan for poss dc end of this week. Clinical updates and notification sent to [facility]. Becka Vu notified of change in facility per pt request.
--- NOTE | 2024-08-28 14:03 | PN ---
[facility] PROGRESS NOTE Date Patient Seen: Aug 28, 2024 Time of Visit: 13:57 Supervising Physician: Dr. Joel Soto Primary Care Physician: [Dr. Zafar Harris ] Outpatient Specialists: [ ] Inpatient Consults: [ ] PROBLEM LIST: Septic Shock POA requiring PRESSORS, resolved 2/2 Gram-positive cocci bacteremia, POA, on repeat neg BC (likely contamination) Acute on chronic hypoxic hypercapnic respiratory failure requiring vent support- POA Intubated POA, extubated 08/22/24 Elevated D-Dimer Neg DVT, Well's score for PE 4.5 (moderate risk) pending CTA to r/o PE Viral community-acquired pneumonia + Influenza A W/ superimposed bacterial Pneumonia -POA 2nd to MSSA COPD/asthma/emphysema exacerbation-POA Constipation with firm abdomen r/o sbo Hypochloremia-POA Hypokalemia Primary hypertension Diabetes mellitus HLD Chronic nicotine disorder Obstructive sleep apnea Polysubstance abuse with tobacco, cocaine and alcohol Fatty Liver Morbid obese, BMI 39.9 INTERVAL HISTORY: Patient evaluated at bedside today, he continues on BiPAP at this time with current CO2 level at 81. Patient's white count today is within normal limits at 9.7, hemoglobin remained stable at 12.6. He continues on cefepime and doxycycline. Pending [facility] authorization for [place] in [place]. Patient has no complaints at this time, the importance of BiPAP utilization was once again stressed to the patient and he expressed understanding. No further changes to medical management today. REVIEW OF SYSTEMS: General: No malaise or fever. Neurological: No fainting episodes or seizures. HEENT: No nasal congestion or nasal secretion. Yes for sob on exertion. Respiratory: No cough, shortness of breath, or wheezing Cardiac: No chest pain or palpitations. Gastrointestinal: No vomiting or diarrhea. Genitourinary: No dysuria hematuria. Skin: No rashes or lesions. Hematological: No bruises or bleeding. Musculoskeletal: No joint pains or arthralgias. Psychiatric: No depression or panic attacks. PHYSICAL EXAM: GENERAL: Awake alert and oriented x3 following commands. HEENT: EOMI, Sclera non icteric, moist mucosa NECK: Short neck, no JVD, trachea midline LUNGS: Diminished to all lobes bilaterally,. No wheezes HEART: Regular rate and rhythm. Normal S1 and S2, without murmurs ABD: Abdomen obese firm, nontender. Bowel sounds present EXT: No clubbing cyanosis or edema NEURO: Moving all extremities awake alert and following commands. Vital Signs (last 8hr) Date Time Temp Pulse Resp B/P (MAP) Pulse Ox O2 Delivery O2 Flow Rate FiO2 08/28/24 12:00 98.1 79 20 106/56 95 N/C High Flow System 7.0 08/28/24 11:22 80 28 40 08/28/24 11:22 82 20 08/28/24 08:00 97.7 89 18 125/54 96 N/C High Flow System 7.0 08/28/24 07:09 88 20 08/28/24 07:08 87 22 N/Cannula Oximizer Hi LPM 7.0 LABS: Hematology Labs: Test 08/28/24 06:00 Range/Units White Blood Count 9.7 4.8-10.8 K/uL Red Blood Count 4.19 L 4.50-6.20 MIL/uL Hemoglobin 12.6 L 14.0-18.0 g/dL Hematocrit 43.2 42-54 % Mean Corpuscular Volume 103.1 H 79-99 fL Mean Corpuscular Hemoglobin 30.1 27.0-33.0 pg Mean Corpuscular Hemoglobin Concent 29.2 L 32.0-36.0 g/dL Red Cell Distribution Width 11.9 11.0-15.5 % Platelet Count 158 130-400 K/uL Mean Platelet Volume 10.1 7.5-10.5 fL Nucleated Red Blood Cells 0.0 0.0-0.19 % Chemistry Labs: Test 08/28/24 12:30 08/28/24 06:00 Range/Units Whole Blood Glucose 186 #H 70-110 MG/DL Sodium Level 148 H 136-145 mmol/L Potassium Level 3.5 3.5-5.1 mmol/L Chloride Level 105 101-111 mmol/L Carbon Dioxide Level 43 *H 21-32 mmol/L Blood Urea Nitrogen 16 7-18 mg/dL Creatinine 0.3 L 0.5-1.3 mg/dL Glomerular Filtration Rate Calc 135 >90 mL/min Random Glucose 88 70-105 mg/dL Total Calcium 8.7 8.5-10.1 mg/dL DIAGNOSTICS / RADIOLOGY RESULTS: [ ] PLAN NEURO: Minimize central acting medications as possible. Maintain fall precautions, adequate lighting during the day PULMONARY: Supplemental 02 as needed. Maintain aspiration precautions at all times CARDIOVASCULAR: Follow hemodynamics. Vital signs per facility protocol GI & NUTRITION: Continue with nutritional support. Continue stool softeners and laxatives as needed. KIDNEYS & ELECTROLYTES: Strict monitoring of intake, output and overall fluid balance. Avoid nephrotoxic medications to the extent possible. Medications to be dosed according to renal function. Monitor electrolytes and replace as needed ENDOCRINE: Maintain blood glucose between 100-180 at all times. Hypoglycemia protocol in place INFECTIOUS DISEASE: Trend temperature, WBC and procalcitonin level Follow cultures, deescalate antibiotics as soon as possible. Panculture if new onset fever ONCOLOGY/HEMATOLOGY/COAGULATION: Monitor for s/s of bleeding Monitor hemoglobin, coagulation studies as needed SKIN: Pressure ulcer prevention per facility protocol Specialty mattress ORTHO/REHAB: Continue PT/OT Prophylaxis: Continue GI and DVT prophylaxis Code Status: Full Resuscitation Disposition: TBD Other: Total patient care time: 35 minutes ANASTACIO MALHOTRA Aug 28, 2024 14:03
--- NOTE | 2024-08-28 20:30 | NUR ---
PT REFUSING BIPAP PATIENT GIVEN TYLENOL REGARDING LEG PAIN. PATIENT THEN REMOVED BIPAP AND STATES HE NO LONGER WANTS TO BE ON THE BIPAP. WHEN ASKED WHY PT STATES HE FEELS A LOT BETTER. EDUCATED PATIENT THAT CONTINUING ON BIPAP IS WHAT IS HELPING HIM IMPROVE AND THAT HE CAN DECLINE AGAIN WITHOUT THE BIPAP AND BE REINTUBATED. PT STATES THAT HES OKAY DESPITE EDUCATION. PT PLACED ON OXYMIZER AT 8L.
[2024-08-29] VITALS (74 sets, daily range): BP systolic 78–169; BP diastolic 43–88; PULSE 53–104; RESP 20–31; TEMP 97.6–98.2; O2SAT 90–100
[2024-08-29 02:55] LABS: ABG BASE EXCESS 11.1 mmol/L (-2.0-3.0); ABG HCO3 47.1 mmol/L (21.0-28.0); ABG OXYGEN SATURATION 95.8 % (94.0-98.0); ABG PCO2 150 mmHg (35-48); ABG PH 7.116 (7.350-7.450); DEVICE COMMENT RN; PO2, ARTERIAL BG 112.4 mmHg (83.0-108.0); VENT MODE, BG LR 8L OXYM (ROOM AIR)
--- NOTE | 2024-08-29 03:00 | NUR ---
BIPAP PLACED RT PLACED BIPAP ON PATIENT. LETHARGIC BUT AWAKENS WHEN CALLED. ABGS COMPLETED. PATIENT SITTING UPRIGHT ON BED. WILL CONTINUE TO MONITOR.
[2024-08-29 04:00] LABS: ABG BASE EXCESS 14.9 mmol/L (-2.0-3.0); ABG HCO3 47.8 mmol/L (21.0-28.0); ABG OXYGEN SATURATION 64.5 % (94.0-98.0); ABG PCO2 110 mmHg (35-48); ABG PH 7.255 (7.350-7.450); CPAP, BG 18 cm H2O; PO2, ARTERIAL BG < 45.0 mmHg (83.0-108.0); VENT MODE, BG LR BIPAP (ROOM AIR)
[2024-08-29 04:11] LABS: ABG BASE EXCESS 13.9 mmol/L (-2.0-3.0); ABG HCO3 47.3 mmol/L (21.0-28.0); ABG PCO2 115 mmHg (35-48); ABG PH 7.233 (7.350-7.450); CPAP, BG 18 cm H2O; PO2, ARTERIAL BG < 45.0 mmHg (83.0-108.0); VENT MODE, BG LR BIPAP (ROOM AIR)
--- NOTE | 2024-08-29 04:20 | NUR ---
ABGS REPEATED ABNORMAL ABG REPORTED TO PROVIDER ASSEMBLER CONVERTIBLE TOP. PATIENT CONTINUES TO BE LETHARGIC. AROUSES WHEN CALLED. PROVIDER STATES TO ORDER ANOTHER ABG IN 30 MINUTES. PATIENT SITTING UPRIGHT WHILE ON BIPAP. WILL CONTINUE TO MONITOR.
[2024-08-29 05:01] LABS: ABG BASE EXCESS 12.9 mmol/L (-2.0-3.0); ABG HCO3 46.9 mmol/L (21.0-28.0); ABG OXYGEN SATURATION 96.7 % (94.0-98.0); ABG PCO2 122 mmHg (35-48); ABG PH 7.202 (7.350-7.450); CPAP, BG 18 cm H2O; PO2, ARTERIAL BG 114.4 mmHg (83.0-108.0); VENT MODE, BG LR BIPAP (ROOM AIR)
--- NOTE | 2024-08-29 05:27 | NUR ---
PT INTUBATED 0525 ETOMIDATE GIVEN 0525 ROCURONIUM GIVEN 0527 INTUBATED - 24 CM @ TEETH
--- NOTE | 2024-08-29 05:30 | NUR ---
ABNORMAL ABGS REPEAT ABGS CONTINUE TO BE ABNORMAL. PATIENT MORE LETHARGIC. AWAKENS WHEN JOGGED. NOTIFIED PROVIDER STOCK FEEDER. ORDERED TO BE TRANSFERRED TO ICU. NOTIFIED CHARGE NURSE AND SECOND HAND PAPER MACHINE. SECOND HAND PAPER MACHINE STATES WILL CALL BACK WHEN BED IS FOUND. PATIENT INTUBATED AND SENT TO ICU. REPORT GIVEN TO CLAIRE REYES.
[2024-08-29 05:33] LABS: HEMATOCRIT 43.7 % (42-54); MEAN CORPUSCULAR HEMOGLOBIN 29.6 pg (27.0-33.0); MEAN CORPUSCULAR HGB CONC 28.1 g/dL (32.0-36.0); RED BLOOD CELL COUNT(AUTO) 4.16 MIL/uL (4.50-6.20); RED CELL DISTRIBUTION WIDTH 11.9 % (11.0-15.5); WHITE BLOOD COUNT (AUTO) 8.1 K/uL (4.8-10.8)
--- NOTE | 2024-08-29 05:37 | ERN ---
CODEBLUE/INTUBATION/PROCEDURE DATE: 08/29/24 I was called up to bed 331 for an emergent intubation Patient has been admitted for respiratory failure with hypercapnia. He has a known history of COPD. On my evaluation patient was obtunded. His oxygen saturation is stable but he is likely hypercapnic. He is not protecting his airway well. He is not moving much air. His blood pressure was stable. His oxygen saturation stable. Patient received rocuronium and etomidate. No hemodynamic changes. Patient was intubated successfully. No complication. The procedure was emergent, the patient was unable to provide consent, and a designee was not immediately available. PROCEDURE SUMMARY: A time out was performed. My hands were washed immediately prior to the procedure. I wore a surgical cap, mask with protective eyewear, gown and gloves throughout the procedure. The patient was placed on a bellows assembler including continuous pulse oximetry. Rapid Sequence Intubation was conducted. The patient received 10 mg of etomidate for induction and 100 mg of rocuronium for adequate paralysis. Cricoid pressure was maintained from time induction agent was given to time of cuff balloon inflation. Using a 4-0 laryngoscope and a size 7.5 endotracheal tube with stylet, the patient was intubated on the 1 attempt. The stylet was removed and cuff balloon was inflated. Appropriate endotracheal tube position was confirmed by direct visualization of vocal cord passage, fogging of the tube, CO2 colormetric indicator and symmetric breath sounds. The tube was secured at 21 cm at the teeth. Post intubation chest x-ray is pending at this time. GILLIAN NERI DO Aug 29, 2024 05:37
--- NOTE | 2024-08-29 05:45 | NUR ---
PT RECEIVED PT RECEIVED FROM 3RD FLOOR, INTUBATED, WILL CONTINUE TO MONITOR PER PROTOCOL
[2024-08-29 05:48] LABS: CREATININE 0.4 mg/dL (0.5-1.3); POTASSIUM 3.5 mmol/L (3.5-5.1)
[2024-08-29] MEDS ORDERED: NOREPINEPHRIN 4MG/NS 250ML 250 ML IV PRN (06:00)
[2024-08-29] MEDS ORDERED: FENTanyl CITRate PF 0.05 MG/ML 2,500 MCG in 0.9% NACL 250ML 200 ML IV PRN (06:00)
[2024-08-29] MEDS: FENTanyl 2500MCG+NS 250ML 250 ML IV PRN (06:01)
[2024-08-29] MEDS: MIDAZOLAM 100MG-0.9% NS 100ML 100ML BAG IV PRN (06:02)
[2024-08-29] MEDS: NOREPINEPHRINE 16MG/NS 250ML 250 ML IV ONE (06:45)
[2024-08-29 06:57] LABS: ABG BASE EXCESS 16.9 mmol/L (-2.0-3.0); ABG HCO3 41.3 mmol/L (21.0-28.0); ABG OXYGEN SATURATION 90.2 % (94.0-98.0); ABG PCO2 47 mmHg (35-48); CARBON MONOXIDE 0.6 % (0.5-1.5); DEVICE COMMENT LR; HHb 9.7; PO2, ARTERIAL BG < 45.0 mmHg (83.0-108.0); VENT MODE, BG AC (ROOM AIR)
[2024-08-29] MEDS ORDERED: NOREPINEPHRINE 16MG/NS 250ML PREMIX IV SCH (07:00)
[2024-08-29 08:27] LABS: ABG BASE EXCESS 15.3 mmol/L (-2.0-3.0); ABG HCO3 40.4 mmol/L (21.0-28.0); ABG OXYGEN SATURATION 95.1 % (94.0-98.0); ABG PCO2 49 mmHg (35-48); ABG PH 7.531 (7.350-7.450); DEVICE COMMENT LR; VENT MODE, BG AC (ROOM AIR)
[2024-08-29] MEDS ORDERED: acetaZOLAMIDE 500MG VIAL IV SCH (09:00)
--- NOTE | 2024-08-29 09:02 | PN ---
[facility] PROGRESS NOTE Date Patient Seen: Aug 29, 2024 Time of Visit: 09:02 Supervising Physician: Janes Corea MD Supervising Physician: Dr. Joel Soto Primary Care Physician: [Dr. Zafar Harris ] Outpatient Specialists: [ ] Inpatient Consults: PROBLEM LIST: Acute on chronic hypoxemic and hypercapnic respiratory reintubated 08/29/24 Severe COPD/asthma/emphysema recurrent exacerbation-POA Septic Shock POA requiring PRESSORS, resolved 2/2 Gram-positive cocci bacteremia, POA, on repeat neg BC (likely contamination) Acute on chronic hypoxic hypercapnic respiratory failure requiring vent support- POA Intubated POA, extubated 08/22/24 Elevated D-Dimer Neg DVT, Well's score for PE 4.5 (moderate risk) pending CTA to r/o PE Viral community-acquired pneumonia + Influenza A W/ superimposed bacterial Pneumonia -POA 2nd to MSSA Constipation with firm abdomen r/o sbo Hypochloremia-POA Hypokalemia Primary hypertension Diabetes mellitus HLD Chronic nicotine disorder Obstructive sleep apnea Polysubstance abuse with tobacco, cocaine and alcohol Fatty Liver Morbid obese, BMI 39.9 INTERVAL HISTORY: 08/29/24- overnight patient became lethargic and retaining CO2 patient had to be emergently intubated due to failing BiPAP and pt refusing to keep Bipap on over night. . Patient was transferred to ICU for acute hypoxemic and hypercapnic. Initial ABG with pH of 7.20, pCO2 of 122, PO2 114. Now ABG shows a pH of 7.53, pCO2 of 49, PO2 of 68, bicarb of 40.4 with ventilator settings of assist control volume control FiO2 of 60% and PEEP of eight, respiratory rate of 20 and tidal volume of 500. WBCs are normal, H&H similar to yesterday platelet count is 127 K. chemistries sodium is 150 potassium is 3.5 carbon dioxide of 43 BUN of 20 creatinine of 0.4 glucose of 186 mg/dL. On chest x-ray mild bilateral pulmonary infiltrates are seen may be related to mild pulmonary vascular congestion with possible superimposed pneumonitis. We will continue mechanical ventilation support. Patient has previous multiple visits to the hospital with intubation. He has failed extubation and I spoke to his brother who is his POA and discu and discussed with him the possibility of tracheostomy and PEG tube placement due to advanced COPD. As per brother he is going to talk it over with more family and think about the decision to go through with PEG and trach. Fow now we will optimize oxygenation and when we have and FiO2 requirement of less than 50% and a PEEP of 5-6, then we may consult general surgery for trach and PEG if in agreement with family/pt. REVIEW OF SYSTEMS: Unable to perform due to patient intubated and sedated. PHYSICAL EXAM: GENERAL: Sedated intubated. HEENT: Sclera non icteric, moist mucosa NECK: Short neck, no JVD, trachea midline LUNGS: Diminished to all lobes bilaterally,. No wheezes HEART: Regular rate and rhythm. Normal S1 and S2, without murmurs ABD: Abdomen obese firm, nontender. Bowel sounds present EXT: No clubbing cyanosis or edema NEURO: Sedated and intubated. No focal weakness. Vital Signs (last 8hr) Date Time Temp Pulse Resp B/P (MAP) Pulse Ox O2 Delivery O2 Flow Rate FiO2 08/29/24 08:00 96 Ventilator+ 60 08/29/24 07:06 76 20 08/29/24 07:04 60 08/29/24 07:02 82 55 08/29/24 06:45 81/56 08/29/24 06:45 79 31 85/56 (66) 90 40 08/29/24 06:30 84 30 83/60 (68) 91 40 08/29/24 06:28 88 30 81/56 (64) 91 40 08/29/24 06:18 79 30 85/57 (66) 94 40 08/29/24 06:15 83 31 78/60 (66) 93 40 08/29/24 06:00 90 27 101/68 (79) 94 40 08/29/24 05:49 85 60 08/29/24 05:45 97 30 143/86 (105) 99 40 08/29/24 05:45 96 Ventilator+ 40 08/29/24 04:17 60 08/29/24 02:55 82 28 25 08/29/24 02:45 98.1 104 29 143/87 95 Nonrebreathing Mask 6.0 LABS: Hematology Labs: Test 08/29/24 04:31 Range/Units White Blood Count 8.1 4.8-10.8 K/uL Red Blood Count 4.16 L 4.50-6.20 MIL/uL Hemoglobin 12.3 L 14.0-18.0 g/dL Hematocrit 43.7 42-54 % Mean Corpuscular Volume 105.0 H 79-99 fL Mean Corpuscular Hemoglobin 29.6 27.0-33.0 pg Mean Corpuscular Hemoglobin Concent 28.1 L 32.0-36.0 g/dL Red Cell Distribution Width 11.9 11.0-15.5 % Platelet Count 127 L 130-400 K/uL Mean Platelet Volume 10.4 7.5-10.5 fL Nucleated Red Blood Cells 0.0 0.0-0.19 % Chemistry Labs: Test 08/29/24 05:48 08/29/24 04:31 Range/Units Whole Blood Glucose 153 H 70-110 MG/DL Sodium Level 150 H 136-145 mmol/L Potassium Level 3.5 3.5-5.1 mmol/L Chloride Level 106 101-111 mmol/L Carbon Dioxide Level 43 *H 21-32 mmol/L Blood Urea Nitrogen 20 H 7-18 mg/dL Creatinine 0.4 L 0.5-1.3 mg/dL Glomerular Filtration Rate Calc 124 >90 mL/min Random Glucose 198 #H 70-105 mg/dL Total Calcium 8.9 8.5-10.1 mg/dL DIAGNOSTICS / RADIOLOGY RESULTS: IMAGING REPORT Signed PATIENT: CHRISTINE CURTIS MR#: [id number] : 1965 SEX: M AGE: 59 LOCATION: [facility] ORDER 7 STATUS: ADM IN REPORT#: [id number] SERVICE 6 REASON: INTUBATED ORDERING PHYSICIAN: JOEL SOTO MD PROCEDURE: CXR1VW - CHEST 1VW CHEST 1VW HISTORY: Intubated COMPARISON: 08/28/2024 FINDINGS: A frontal projection of the chest was obtained. Mild bilateral pulmonary infiltrates are seen may be related to mild pulmonary vascular congestion with possible superimposed pneumonitis. The heart is borderline enlarged. All the lines and tubes are again seen in place. No evidence of aortic calcification is seen. IMPRESSION: 1. Mild bilateral pulmonary infiltrates are seen may be related to mild pulmonary vascular congestion with possible superimposed pneumonitis. DICTATED BY: BLAYNE GLORIA MD DATE: 08/29/24907 ELECTRONICALLY SIGNED BY: BLAYNE GLORIA MD DATE: 08/29/24910 PLAN Maintain O2 sats above 92% Continue duo Atrovent q.6 hours p.r.n. BiPAP at HS and p.r.n. CTA chest to rule out PE Continue GI and DVT prophylaxis PT to eval and treat Wean o2 as permitted. ABG in AM Steroids Solu-medrol 40mg IV q 8 hrs. Continue IV ABX with Cefepim and Doxy -Arrange outpatient pulmonology referral for sleep study, PFT and follow-up management upon discharge sedation vacation q am to assess mental status/. Fow now he is on fentanyl and versed , mynor off versed first . NEURO: Minimize central acting medications as possible. Fall Precautions. Well lighted room through the day and minimize interruptions through the night to prevent acute delirium. PULMONARY: Supplemental 02 as needed Titrate Fio2 to keep Spo2 > or = 90% DuoNebs and CPT as needed Ventilator settings ACVC: Tv 500, RR 20, FIO2 of 60% and peep of 8 adjust as needed per ABG's IS hourly while awake for pulmonary hygiene went off vent CARDIOVASCULAR: Follow hemodynamics. Titrate vasopressor to keep MAP >65 or systolic blood pressure >95mmHg Drips: Levophed at 0.02 micrograms/kilogram per minute Fentanyl Versed LINES: PICC line GI & NUTRITION: Continue nutritional support Aspirations precautions Prokinetic agents and laxatives as needed No bowel movements documented. Mechanical soft diet KIDNEYS & ELECTROLYTES: Strict monitoring of intake and output Daily weights Avoid nephrotoxic agents Monitor electrolytes and replace as needed Goal urine output of 30mL/hr or 0.5mL/kg/hr ENDOCRINE: Maintain blood glucose between 100-180 at all times. Insulin sliding scale for blood glucose management INFECTIOUS DISEASE: Trend temperature. Patricio-culture if febrile. Currently afebrile Micro: Blood cultures negative Urine culture negative Respiratory cultures Sputum grew MSSA, patient completed antibiotic course Influenza B negative (patient is positive for influenza A) COVID-19 negative Antibiotics: Cefepime and doxycycline HEMATOLOGY & COAGULATION: Monitor H&H. Keep Hgb > 7 Transfuse 1 unit of PRBC for Hgb < 7 Transfuse 1 pack of platelets of platelets < 20, 000 Watch for any signs and symptoms of bleeding SKIN: Pressure ulcer prevention per facility protocol Rehab: PT/OT out of bed to chair. Prophylaxis: GI: Protonix 30 mg IV push bid DVT: Lovenox Code Status: Full Resuscitation Disposition: ICU Other: Total patient care time exceeds 60 minutes excluding all procedures. Case was discussed and seen with my supervising physician. The above plan was formulated and agreed upon. SHEY RENAE Aug 29, 2024 09:02
--- NOTE | 2024-08-29 09:11 | HMCIMG ---
CHEST 1VW HISTORY: Intubated COMPARISON: 08/28/2024 FINDINGS: A frontal projection of the chest was obtained. Mild bilateral pulmonary infiltrates are seen may be related to mild pulmonary vascular congestion with possible superimposed pneumonitis. The heart is borderline enlarged. All the lines and tubes are again seen in place. No evidence of aortic calcification is seen. IMPRESSION: 1. Mild bilateral pulmonary infiltrates are seen may be related to mild pulmonary vascular congestion with possible superimposed pneumonitis.
[2024-08-29] MEDS: miDODRine HCL 5 MG TABLET PO SCH (09:28)
--- NOTE | 2024-08-29 10:34 | NUR ---
MPOA/BROTHER LEROY CURTIS [phone] Curt located [facility] on EMR. Brother Blake is [facility]. SW spoke to brother and informed of intubation this am and transfer to ICU. Brother states he is available by phone if needed CURT notified Rosemarie of above. Rosemarie to contact pt's brother and update.
[2024-08-29] MEDS: Solu-medROL 40MG VIAL IVP SCH (13:56)
--- NOTE | 2024-08-29 15:34 | NUR ---
Patient to be held by Physical Therapy until deemed stable for reassessment Addendum: 08/29/24 at 1538 by RAMÍREZ PORTILLO PTA PT Amended: Links added.
[2024-08-29] MEDS: ENOXAPARIN SODIUM 40 MG/0.4 ML SYRINGE SQ SCH (20:35)
[2024-08-30] VITALS (50 sets, daily range): BP systolic 89–142; BP diastolic 43–74; PULSE 43–56; RESP 16–47; TEMP 97.3–98; O2SAT 98–100
[2024-08-30 04:24] LABS: BASOPHILS # (AUTO) 0.01 K/uL (0.00-0.20); BASOPHILS % (AUTO) 0.1 % (0.0-5.0); HEMATOCRIT 37.2 % (42-54); IMMATURE GRANULOCYTE ABSOLUTE 0.09 K/uL (0-1); LYMPHOCYTES # (AUTO) 0.8 K/uL (1.0-4.8); LYMPHOCYTES % (AUTO) 8.9 % (21.0-51.0); MEAN CORPUSCULAR HEMOGLOBIN 30.1 pg (27.0-33.0); MEAN CORPUSCULAR HGB CONC 30.6 g/dL (32.0-36.0); MEAN CORPUSCULAR VOLUME 98.2 fL (79-99); MONOCYTES # (AUTO) 0.6 K/uL (0.1-1.0); MONOCYTES % (AUTO) 6.5 % (3.0-13.0); NEUTROPHILS # (AUTO) 7.1 K/uL (1.8-7.7); NEUTROPHILS % (AUTO) 83.4 % (40.0-77.0); PLATELET COUNT (AUTO) 122 K/uL (130-400); RED BLOOD CELL COUNT(AUTO) 3.79 MIL/uL (4.50-6.20); RED CELL DISTRIBUTION WIDTH 12.3 % (11.0-15.5); WHITE BLOOD COUNT (AUTO) 8.5 K/uL (4.8-10.8)
[2024-08-30 04:52] LABS: B-TYPE NATRIURETIC PEPTIDE 33 pg/mL (0-100)
[2024-08-30 04:54] LABS: ALBUMIN 2.5 g/dL (3.5-5.0); BILIRUBIN,TOTAL 0.8 mg/dL (0.2-1.0); CREATININE 0.5 mg/dL (0.5-1.3)
--- NOTE | 2024-08-30 05:54 | NUR ---
pt has iodine allergy//adv RN
--- NOTE | 2024-08-30 08:00 | NUR ---
CT ON HOLD PER ROBERTO PT IS ON A VENT - WAS NOT AWARE OF IODINE ALLERGY -ROBERTO STATES SHE HAS 2 OTHER PATIENTS AND WILL CALL RADIOLOGY WHEN SHE CAN GET TO IT
--- NOTE | 2024-08-30 08:00 | NUR ---
ASSESSMENT Orally intubated/sedated. Vent settings as recorded. Pt arousable with verbal/tactile stimulation. Pt focuses on caregiver. Follows simple commands. Equal movement x4 extremities observed - generalized weakness. Pt does maintain level of arousal throughout assessment. Assessment completed/recorded. Pt did deny pain when questioned. SB on tele. VS as recorded.
--- NOTE | 2024-08-30 09:15 | NUR ---
FAMILY UPDATE Spoke to pt's brother, Blake, by phone. Briefly updated - questions addressed.
[2024-08-30 10:57] LABS: ABG BASE EXCESS 10.2 mmol/L (-2.0-3.0); ABG HCO3 33.3 mmol/L (21.0-28.0); ABG OXYGEN SATURATION 93.1 % (94.0-98.0); ABG PCO2 39 mmHg (35-48); ABG PH 7.552 (7.350-7.450); DEVICE COMMENT RR VENT; PO2, ARTERIAL BG 57.6 mmHg (83.0-108.0); VENT MODE, BG AC-VC (ROOM AIR)
--- NOTE | 2024-08-30 11:13 | PN ---
[facility] PROGRESS NOTE Date Patient Seen: Aug 30, 2024 Time of Visit: 11:13 Supervising Physician: Dr. Janes Corea Supervising Physician: Dr. Joel Soto Primary Care Physician: [Dr. Zafar Harris ] Outpatient Specialists: [ ] Inpatient Consults: PROBLEM LIST: Acute on chronic hypoxemic and hypercapnic respiratory reintubated 08/29/24 Severe COPD/asthma/emphysema recurrent exacerbation-POA Septic Shock POA requiring PRESSORS, resolved 2/2 Gram-positive cocci bacteremia, POA, on repeat neg BC (likely contamination) Acute on chronic hypoxic hypercapnic respiratory failure requiring vent support- POA Intubated POA, extubated 08/22/24 Elevated D-Dimer Neg DVT, Well's score for PE 4.5 (moderate risk) pending CTA to r/o PE Viral community-acquired pneumonia + Influenza A W/ superimposed bacterial Pneumonia -POA 2nd to MSSA Constipation with firm abdomen r/o sbo Hypochloremia-POA Hypokalemia Primary hypertension Diabetes mellitus HLD Chronic nicotine disorder Obstructive sleep apnea Polysubstance abuse with tobacco, cocaine and alcohol Fatty Liver Morbid obese, BMI 39.9 INTERVAL HISTORY: 08/29/24- overnight patient became lethargic and retaining CO2 patient had to be emergently intubated due to failing BiPAP and pt refusing to keep Bipap on over night. . Patient was transferred to ICU for acute hypoxemic and hypercapnic. Initial ABG with pH of 7.20, pCO2 of 122, PO2 114. Now ABG shows a pH of 7.53, pCO2 of 49, PO2 of 68, bicarb of 40.4 with ventilator settings of assist control volume control FiO2 of 60% and PEEP of eight, respiratory rate of 20 and tidal volume of 500. WBCs are normal, H&H similar to yesterday platelet count is 127 K. chemistries sodium is 150 potassium is 3.5 carbon dioxide of 43 BUN of 20 creatinine of 0.4 glucose of 186 mg/dL. On chest x-ray mild bilateral pulmonary infiltrates are seen may be related to mild pulmonary vascular congestion with possible superimposed pneumonitis. We will continue mechanical ventilation support. Patient has previous multiple visits to the hospital with intubation. He has failed extubation and I spoke to his brother who is his POA and discu and discussed with him the possibility of tracheostomy and PEG tube placement due to advanced COPD. As per brother he is going to talk it over with more family and think about the decision to go through with PEG and trach. Fow now we will optimize oxygenation and when we have and FiO2 requirement of less than 50% and a PEEP of 5-6, then we may consult general surgery for trach and PEG if in agreement with family/pt. 08/30/2024: At the time of my evaluation, the patient is lying in bed. The blood pressure trend is soft and heart rate in the 50s with respiratory rates in the 20s. He continues intubated and mechanically vented. ABG today showed a pH of 7.55, pCO2 39, PO2 57.6 NaHCO3 of 33.3. The patient remains on ACVC mode FiO2 30% tidal volume of 500 and a PEEP of 8. Vital signs showed soft blood pressure readings 94/55, heart rate 53 and a respiratory rate of 23. I&Os showed a total voided urine of 1200 with a positive balance of 847.0. Laboratory data showed a WBC of 8.5, H&H 11.4/37.2 , MCV 98.2 and a MCH of 30.1 and a platelet count of 122. Chemistry panel showed no electrolyte derangement. CO2 of 38, BUN 22, creatinine of 0.5 and a GFR of 116. No imaging was obtained today. REVIEW OF SYSTEMS: Unable to perform due to patient intubated and sedated. PHYSICAL EXAM: GENERAL: Sedated intubated. HEENT: Sclera non icteric, moist mucosa NECK: Short neck, no JVD, trachea midline LUNGS: Diminished to all lobes bilaterally,. No wheezes HEART: Regular rate and rhythm. Normal S1 and S2, without murmurs ABD: Abdomen obese firm, nontender. Bowel sounds present EXT: No clubbing cyanosis or edema NEURO: Sedated and intubated. No focal weakness. Vital Signs (last 8hr) Date Time Temp Pulse Resp B/P (MAP) Pulse Ox O2 Delivery O2 Flow Rate FiO2 08/30/24 09:57 51 40 08/30/24 09:00 51 20 98/61 99 Ventilator 40 08/30/24 08:00 98.1 51 20 96/59 99 Ventilator 40 08/30/24 08:00 99 Ventilator+ 40 08/30/24 07:00 51 20 99/60 99 Ventilator 40 08/30/24 06:46 50 20 99/60 (73) 100 08/30/24 06:36 52 20 08/30/24 06:31 52 40 08/30/24 06:16 51 20 99/58 (72) 100 08/30/24 05:46 54 20 102/63 (76) 100 08/30/24 05:16 51 20 103/61 (75) 100 08/30/24 04:46 53 23 104/63 (77) 100 40 08/30/24 04:16 97.9 53 20 98/61 (73) 100 40 08/30/24 04:00 40 08/30/24 04:00 100 Ventilator+ 40 08/30/24 03:46 52 23 101/61 (74) 100 40 08/30/24 03:26 51 50 08/30/24 03:16 54 20 99/43 (61) 100 40 LABS: Hematology Labs: Test 08/30/24 04:05 Range/Units White Blood Count 8.5 4.8-10.8 K/uL Red Blood Count 3.79 L 4.50-6.20 MIL/uL Hemoglobin 11.4 L 14.0-18.0 g/dL Hematocrit 37.2 L 42-54 % Mean Corpuscular Volume 98.2 79-99 fL Mean Corpuscular Hemoglobin 30.1 27.0-33.0 pg Mean Corpuscular Hemoglobin Concent 30.6 L 32.0-36.0 g/dL Red Cell Distribution Width 12.3 11.0-15.5 % Platelet Count 122 L 130-400 K/uL Mean Platelet Volume 10.8 H 7.5-10.5 fL Immature Granulocyte % (Auto) 1.1 H 0-1 % Neutrophils (%) (Auto) 83.4 H 40.0-77.0 % Lymphocytes (%) (Auto) 8.9 L 21.0-51.0 % Monocytes (%) (Auto) 6.5 3.0-13.0 % Eosinophils (%) (Auto) 0.0 0.0-8.0 % Basophils (%) (Auto) 0.1 0.0-5.0 % Neutrophils # (Auto) 7.1 1.8-7.7 K/uL Lymphocytes # (Auto) 0.8 L 1.0-4.8 K/uL Monocytes # (Auto) 0.6 0.1-1.0 K/uL Eosinophils # (Auto) 0.00 0.00-0.70 K/uL Basophils # (Auto) 0.01 0.00-0.20 K/uL Absolute Immature Granulocyte (auto 0.09 0-1 K/uL Nucleated Red Blood Cells 0.0 0.0-0.19 % White Cell Morphology Comment See comments Chemistry Labs: Test 08/30/24 06:29 08/30/24 04:05 Range/Units Whole Blood Glucose 182 H 70-110 MG/DL Sodium Level 142 136-145 mmol/L Potassium Level 4.0 3.5-5.1 mmol/L Chloride Level 103 101-111 mmol/L Carbon Dioxide Level 38 H 21-32 mmol/L Blood Urea Nitrogen 22 H 7-18 mg/dL Creatinine 0.5 0.5-1.3 mg/dL Glomerular Filtration Rate Calc 116 >90 mL/min Random Glucose 138 H 70-105 mg/dL Lactic Acid Level 1.0 0.8-2.5 mmol/L Total Calcium 8.8 8.5-10.1 mg/dL Total Bilirubin 0.8 0.2-1.0 mg/dL Aspartate Amino Transf (AST/SGOT) 12 10-37 U/L Alanine Aminotransferase (ALT/SGPT) 25 12-78 U/L Alkaline Phosphatase 46 L 50-136 U/L B-Type Natriuretic Peptide 33 0-100 pg/mL Total Protein 6.0 6.0-8.3 g/dL Albumin 2.5 L 3.5-5.0 g/dL Procalcitonin < 0.05 L 0.05-0.5 ng/mL DIAGNOSTICS / RADIOLOGY RESULTS: [ ] PLAN Maintain O2 sats above 92% Continue duo Atrovent q.6 hours p.r.n. BiPAP at HS and p.r.n. CTA chest to rule out PE Continue GI and DVT prophylaxis PT to eval and treat Wean o2 as permitted. ABG in AM Steroids Solu-medrol 40mg IV q 8 hrs. Continue IV ABX with Cefepim and Doxy -Arrange outpatient pulmonology referral for sleep study, PFT and follow-up management upon discharge sedation vacation q am to assess mental status/. Fow now he is on fentanyl and versed , mynor off versed first . 08/30/2024: For now, we are going to continue current management for the patient. We are going to to initiate spontaneous breathing trial in a.m. attempting to extubate the patient soon. He is going to continue on steroid therapy, empiric antibiotic therapy and bronchodilator therapy. I am going to request a chest x-ray in a.m.. We will also request an ABG prior to starting the spontaneous breathing trials. We will monitor the patient's progress and response to management. We will continue to provide general supportive care, GI and DVT prophylaxis. Further orders per attending MD and hospital course. NEURO: Minimize central acting medications as possible. Fall Precautions. Well lighted room through the day and minimize interruptions through the night to prevent acute delirium. PULMONARY: Supplemental 02 as needed Titrate Fio2 to keep Spo2 > or = 90% DuoNebs and CPT as needed Ventilator settings ACVC: Tv 500, RR 20, FIO2 of 60% and peep of 8 adjust as needed per ABG's IS hourly while awake for pulmonary hygiene went off vent CARDIOVASCULAR: Follow hemodynamics. Titrate vasopressor to keep MAP >65 or systolic blood pressure >95mmHg Drips: Levophed at 0.02 micrograms/kilogram per minute Fentanyl Versed LINES: PICC line GI & NUTRITION: Continue nutritional support Aspirations precautions Prokinetic agents and laxatives as needed No bowel movements documented. Mechanical soft diet KIDNEYS & ELECTROLYTES: Strict monitoring of intake and output Daily weights Avoid nephrotoxic agents Monitor electrolytes and replace as needed Goal urine output of 30mL/hr or 0.5mL/kg/hr ENDOCRINE: Maintain blood glucose between 100-180 at all times. Insulin sliding scale for blood glucose management INFECTIOUS DISEASE: Trend temperature. Patricio-culture if febrile. Currently afebrile Micro: Blood cultures negative Urine culture negative Respiratory cultures Sputum grew MSSA, patient completed antibiotic course Influenza B negative (patient is positive for influenza A) COVID-19 negative Antibiotics: Cefepime and doxycycline HEMATOLOGY & COAGULATION: Monitor H&H. Keep Hgb > 7 Transfuse 1 unit of PRBC for Hgb < 7 Transfuse 1 pack of platelets of platelets < 20, 000 Watch for any signs and symptoms of bleeding SKIN: Pressure ulcer prevention per facility protocol Rehab: PT/OT out of bed to chair. Prophylaxis: GI: Protonix 30 mg IV push bid DVT: Lovenox Code Status: Full Resuscitation Disposition: ICU Other: Total patient care time exceeds 60 minutes excluding all procedures. Case was discussed and seen with my supervising physician. The above plan was formulated and agreed upon. MONAE FRANCIS NP Aug 30, 2024 11:13
[2024-08-31] VITALS (58 sets, daily range): BP systolic 94–131; BP diastolic 43–68; PULSE 38–76; RESP 16–75; TEMP 97.8–98; O2SAT 97–100
[2024-08-31 04:41] LABS: BASOPHILS # (AUTO) 0.01 K/uL (0.00-0.20); BASOPHILS % (AUTO) 0.1 % (0.0-5.0); HEMATOCRIT 35.8 % (42-54); IMMATURE GRANULOCYTE ABSOLUTE 0.15 K/uL (0-1); LYMPHOCYTES # (AUTO) 0.7 K/uL (1.0-4.8); LYMPHOCYTES % (AUTO) 7.6 % (21.0-51.0); MEAN CORPUSCULAR HEMOGLOBIN 30.1 pg (27.0-33.0); MONOCYTES # (AUTO) 0.4 K/uL (0.1-1.0); MONOCYTES % (AUTO) 4.2 % (3.0-13.0); NEUTROPHILS # (AUTO) 7.4 K/uL (1.8-7.7); NEUTROPHILS % (AUTO) 86.4 % (40.0-77.0); PLATELET COUNT (AUTO) 108 K/uL (130-400); RED BLOOD CELL COUNT(AUTO) 3.69 MIL/uL (4.50-6.20); RED CELL DISTRIBUTION WIDTH 12.8 % (11.0-15.5); WHITE BLOOD COUNT (AUTO) 8.6 K/uL (4.8-10.8)
[2024-08-31 04:47] LABS: CREATININE 0.4 mg/dL (0.5-1.3); POTASSIUM 3.9 mmol/L (3.5-5.1)
[2024-08-31 08:02] LABS: ABG BASE EXCESS 4.8 mmol/L (-2.0-3.0); ABG HCO3 28.9 mmol/L (21.0-28.0); ABG PCO2 41 mmHg (35-48); CARBON MONOXIDE 0.6 % (0.5-1.5); DEVICE COMMENT LR RAQUEL; HHb 6.9; PO2, ARTERIAL BG 65.5 mmHg (83.0-108.0); VENT MODE, BG AC (ROOM AIR)
--- NOTE | 2024-08-31 11:27 | HMCIMG ---
FRONTAL CHEST RADIOGRAPH INDICATION: Intubated COMPARISON: 08/29/2024 FINDINGS/IMPRESSION: surveillance monitor leads overlie the field of view. Stable heart size and pulmonary vascularity appears normal. Unchanged bilateral lung scarring/fibrosis, without consolidation or pneumothorax. Tip of endotracheal tube is located 3.2 cm above the chencho, tip of NG tube occupies the proximal stomach, and stable right PICC.
--- NOTE | 2024-08-31 11:38 | PN ---
[facility] PROGRESS NOTE Date Patient Seen: Aug 31, 2024 Time of Visit: 11:31 Supervising Physician: Dr. Baker Supervising Physician: Dr. Joel Soto Primary Care Physician: [Dr. Zafar Harris ] Outpatient Specialists: [ ] Inpatient Consults: PROBLEM LIST: Acute on chronic hypoxemic and hypercapnic respiratory reintubated 08/29/24 Severe COPD/asthma/emphysema recurrent exacerbation-POA Septic Shock POA requiring PRESSORS, resolved 2/2 Gram-positive cocci bacteremia, POA, on repeat neg BC (likely contamination) Acute on chronic hypoxic hypercapnic respiratory failure requiring vent support- POA Intubated POA, extubated 08/22/24 Elevated D-Dimer Neg DVT, Well's score for PE 4.5 (moderate risk) pending CTA to r/o PE Viral community-acquired pneumonia + Influenza A W/ superimposed bacterial Pneumonia -POA 2nd to MSSA Constipation with firm abdomen r/o sbo Hypochloremia-POA Hypokalemia Primary hypertension Diabetes mellitus HLD Chronic nicotine disorder Obstructive sleep apnea Polysubstance abuse with tobacco, cocaine and alcohol Fatty Liver Morbid obese, BMI 39.9 INTERVAL HISTORY: 08/29/24- overnight patient became lethargic and retaining CO2 patient had to be emergently intubated due to failing BiPAP and pt refusing to keep Bipap on over night. . Patient was transferred to ICU for acute hypoxemic and hypercapnic. Initial ABG with pH of 7.20, pCO2 of 122, PO2 114. Now ABG shows a pH of 7.53, pCO2 of 49, PO2 of 68, bicarb of 40.4 with ventilator settings of assist control volume control FiO2 of 60% and PEEP of eight, respiratory rate of 20 and tidal volume of 500. WBCs are normal, H&H similar to yesterday platelet count is 127 K. chemistries sodium is 150 potassium is 3.5 carbon dioxide of 43 BUN of 20 creatinine of 0.4 glucose of 186 mg/dL. On chest x-ray mild bilateral pulmonary infiltrates are seen may be related to mild pulmonary vascular congestion with possible superimposed pneumonitis. We will continue mechanical ventilation support. Patient has previous multiple visits to the hospital with intubation. He has failed extubation and I spoke to his brother who is his POA and discu and discussed with him the possibility of tracheostomy and PEG tube placement due to advanced COPD. As per brother he is going to talk it over with more family and think about the decision to go through with PEG and trach. Fow now we will optimize oxygenation and when we have and FiO2 requirement of less than 50% and a PEEP of 5-6, then we may consult general surgery for trach and PEG if in agreement with family/pt. 08/30/2024: At the time of my evaluation, the patient is lying in bed. The blood pressure trend is soft and heart rate in the 50s with respiratory rates in the 20s. He continues intubated and mechanically vented. ABG today showed a pH of 7.55, pCO2 39, PO2 57.6 NaHCO3 of 33.3. The patient remains on ACVC mode FiO2 30% tidal volume of 500 and a PEEP of 8. Vital signs showed soft blood pressure readings 94/55, heart rate 53 and a respiratory rate of 23. I&Os showed a total voided urine of 1200 with a positive balance of 847.0. Laborato ry data showed a WBC of 8.5, H&H 11.4/37.2 , MCV 98.2 and a MCH of 30.1 and a platelet count of 122. Chemistry panel showed no electrolyte derangement. CO2 of 38, BUN 22, creatinine of 0.5 and a GFR of 116. No imaging was obtained today. 08/31/2024: At the time of my evaluation, the patient is lying in bed. He remains intubated currently on CPAP mode in attempt to wean off the vent. ABGs today showed pH of 7.47, pCO2 41, PO2 65.5, HC03 of 28.9. All sedatives have been turned off. Vital signs show normotension, but the patient is tachypneic in the 40s. Laboratory data today showed no major derangements on CBC and Chemistry panel. Urine total [id number] out with a + balance of 145.5. No new microbiology data for review. Chest x-ray still showing pulmonary infiltrates and vascular congestion. No acute events reported overnight. REVIEW OF SYSTEMS: Unable to perform due to patient intubated and sedated. PHYSICAL EXAM: GENERAL: Sedated intubated. HEENT: Sclera non icteric, moist mucosa NECK: Short neck, no JVD, trachea midline LUNGS: Diminished to all lobes bilaterally,. No wheezes HEART: Regular rate and rhythm. Normal S1 and S2, without murmurs ABD: Abdomen obese firm, nontender. Bowel sounds present EXT: No clubbing cyanosis or edema NEURO: Sedated and intubated. No focal weakness. Vital Signs (last 8hr) Date Time Temp Pulse Resp B/P (MAP) Pulse Ox O2 Delivery O2 Flow Rate FiO2 08/31/24 09:08 58 30 08/31/24 09:00 98.1 76 22 131/67 (88) 94 08/31/24 09:00 30 08/31/24 08:13 98 Ventilator+ 30 08/31/24 08:00 30 08/31/24 08:00 44 16 122/68 (86) 98 30 08/31/24 07:00 43 16 110/62 (78) 98 30 08/31/24 06:46 46 16 08/31/24 06:42 45 30 08/31/24 04:46 49 16 94/56 (69) 97 30 08/31/24 04:16 47 20 102/58 (73) 96 30 08/31/24 04:11 48 30 08/31/24 04:00 97 Ventilator+ 30 08/31/24 04:00 97.9 08/31/24 04:00 30 08/31/24 04:00 30 08/31/24 03:46 46 23 95/54 (68) 98 30 LABS: Hematology Labs: Test 08/31/24 04:07 08/30/24 04:05 Range/Units White Blood Count 8.6 4.8-10.8 K/uL Red Blood Count 3.69 L 4.50-6.20 MIL/uL Hemoglobin 11.1 L 14.0-18.0 g/dL Hematocrit 35.8 L 42-54 % Mean Corpuscular Volume 97.0 79-99 fL Mean Corpuscular Hemoglobin 30.1 27.0-33.0 pg Mean Corpuscular Hemoglobin Concent 31.0 L 32.0-36.0 g/dL Red Cell Distribution Width 12.8 11.0-15.5 % Platelet Count 108 L 130-400 K/uL Mean Platelet Volume 11.1 H 7.5-10.5 fL Immature Granulocyte % (Auto) 1.7 H 0-1 % Neutrophils (%) (Auto) 86.4 H 40.0-77.0 % Lymphocytes (%) (Auto) 7.6 L 21.0-51.0 % Monocytes (%) (Auto) 4.2 3.0-13.0 % Eosinophils (%) (Auto) 0.0 0.0-8.0 % Basophils (%) (Auto) 0.1 0.0-5.0 % Neutrophils # (Auto) 7.4 1.8-7.7 K/uL Lymphocytes # (Auto) 0.7 L 1.0-4.8 K/uL Monocytes # (Auto) 0.4 0.1-1.0 K/uL Eosinophils # (Auto) 0.00 0.00-0.70 K/uL Basophils # (Auto) 0.01 0.00-0.20 K/uL Absolute Immature Granulocyte (auto 0.15 0-1 K/uL Nucleated Red Blood Cells 0.0 0.0-0.19 % Red Blood Cell Morphology See comments White Cell Morphology Comment See comments Chemistry Labs: Test 08/31/24 04:25 08/31/24 04:07 08/30/24 04:05 Range/Units Whole Blood Glucose 99 70-110 MG/DL Sodium Level 141 136-145 mmol/L Potassium Level 3.9 3.5-5.1 mmol/L Chloride Level 105 101-111 mmol/L Carbon Dioxide Level 34 H 21-32 mmol/L Blood Urea Nitrogen 21 H 7-18 mg/dL Creatinine 0.4 L 0.5-1.3 mg/dL Glomerular Filtration Rate Calc 124 >90 mL/min Random Glucose 95 70-105 mg/dL Total Calcium 8.5 8.5-10.1 mg/dL Lactic Acid Level 1.0 0.8-2.5 mmol/L Total Bilirubin 0.8 0.2-1.0 mg/dL Aspartate Amino Transf (AST/SGOT) 12 10-37 U/L Alanine Aminotransferase (ALT/SGPT) 25 12-78 U/L Alkaline Phosphatase 46 L 50-136 U/L B-Type Natriuretic Peptide 33 0-100 pg/mL Total Protein 6.0 6.0-8.3 g/dL Albumin 2.5 L 3.5-5.0 g/dL Procalcitonin < 0.05 L 0.05-0.5 ng/mL DIAGNOSTICS / RADIOLOGY RESULTS: [ ] PLAN Maintain O2 sats above 92% Continue duo Atrovent q.6 hours p.r.n. BiPAP at HS and p.r.n. CTA chest to rule out PE Continue GI and DVT prophylaxis PT to eval and treat Wean o2 as permitted. ABG in AM Steroids Solu-medrol 40mg IV q 8 hrs. Continue IV ABX with Cefepim and Doxy -Arrange outpatient pulmonology referral for sleep study, PFT and follow-up management upon discharge sedation vacation q am to assess mental status/. Fow now he is on fentanyl and versed , mynor off versed first . 08/30/2024: For now, we are going to continue current management for the patient. We are going to to initiate spontaneous breathing trial in a.m. attempting to extubate the patient soon. He is going to continue on steroid therapy, empiric antibiotic therapy and bronchodilator therapy. I am going to request a chest x-ray in a.m.. We will also request an ABG prior to starting the spontaneous breathing trials. We will monitor the patient's progress and response to management. We will continue to provide general supportive care, GI and DVT prophylaxis. Further orders per attending MD and hospital course. 08/31/2024: For now, we are going to continue current management for the patient. The plan is to wean off the vent. We will continue spontaneous breathing trials and see of the patient will tolerate. We are going to continue with steroid therapy, Solu-Medrol 40 mg q.8h IV. He will continue on antibiotic coverage covered currently with cefepime and doxycycline. We will monitor the patient's progress and response to management. We will continue to provide general supportive care, GI and DVT prophylaxis. Further orders per attending MD and hospital course. NEURO: Minimize central acting medications as possible. Fall Precautions. Well lighted room through the day and minimize interruptions through the night to prevent acute delirium. PULMONARY: Supplemental 02 as needed Titrate Fio2 to keep Spo2 > or = 90% DuoNebs and CPT as needed Ventilator settings ACVC: Tv 500, RR 20, FIO2 of 60% and peep of 8 adjust as needed per ABG's IS hourly while awake for pulmonary hygiene went off vent CARDIOVASCULAR: Follow hemodynamics. Titrate vasopressor to keep MAP >65 or systolic blood pressure >95mmHg Drips: Levophed at 0.02 micrograms/kilogram per minute Fentanyl Versed LINES: PICC line GI & NUTRITION: Continue nutritional support Aspirations precautions Prokinetic agents and laxatives as needed No bowel movements documented. Mechanical soft diet KIDNEYS & ELECTROLYTES: Strict monitoring of intake and output Daily weights Avoid nephrotoxic agents Monitor electrolytes and replace as needed Goal urine output of 30mL/hr or 0.5mL/kg/hr ENDOCRINE: Maintain blood glucose between 100-180 at all times. Insulin sliding scale for blood glucose management INFECTIOUS DISEASE: Trend temperature. Patricio-culture if febrile. Currently afebrile Micro: Blood cultures negative Urine culture negative Respiratory cultures Sputum grew MSSA, patient completed antibiotic course Influenza B negative (patient is positive for influenza A) COVID-19 negative Antibiotics: Cefepime and doxycycline HEMATOLOGY & COAGULATION: Monitor H&H. Keep Hgb > 7 Transfuse 1 unit of PRBC for Hgb < 7 Transfuse 1 pack of platelets of platelets < 20, 000 Watch for any signs and symptoms of bleeding SKIN: Pressure ulcer prevention per facility protocol Rehab: PT/OT out of bed to chair. Prophylaxis: GI: Protonix 30 mg IV push bid DVT: Lovenox Code Status: Full Resuscitation Disposition: ICU Other: Total patient care time exceeds 60 minutes excluding all procedures. Case was discussed and seen with my supervising physician. The above plan was formulated and agreed upon. MONAE FRANCIS NP Aug 31, 2024 11:38
--- NOTE | 2024-08-31 12:16 | NUR ---
CPAP PT TOLERATIED 3 HOURS OF CPAP, AFTER 3 HOURS PT NOTED TACHYPNEIC WITH VOLUMES 200 ML AND RESTLESS. PT PLACED BACK ON AC, LIGHT SEDATION RESTARTED.
[2024-09-01] VITALS (66 sets, daily range): BP systolic 108–157; BP diastolic 58–97; PULSE 37–62; RESP 15–28; TEMP 97.7–98.2; O2SAT 93–100
[2024-09-01 04:19] LABS: BASOPHILS # (AUTO) 0.01 K/uL (0.00-0.20); BASOPHILS % (AUTO) 0.1 % (0.0-5.0); HEMATOCRIT 33.8 % (42-54); IMMATURE GRANULOCYTE ABSOLUTE 0.13 K/uL (0-1); LYMPHOCYTES # (AUTO) 0.7 K/uL (1.0-4.8); LYMPHOCYTES % (AUTO) 7.4 % (21.0-51.0); MEAN CORPUSCULAR HEMOGLOBIN 29.7 pg (27.0-33.0); MEAN CORPUSCULAR HGB CONC 31.4 g/dL (32.0-36.0); MEAN CORPUSCULAR VOLUME 94.7 fL (79-99); MONOCYTES # (AUTO) 0.4 K/uL (0.1-1.0); MONOCYTES % (AUTO) 4.7 % (3.0-13.0); NEUTROPHILS # (AUTO) 7.6 K/uL (1.8-7.7); NEUTROPHILS % (AUTO) 86.3 % (40.0-77.0); NUCLEATED RED BLOOD CELLS 0.2 % (0.0-0.19); PLATELET COUNT (AUTO) 102 K/uL (130-400); RED BLOOD CELL COUNT(AUTO) 3.57 MIL/uL (4.50-6.20); RED CELL DISTRIBUTION WIDTH 12.9 % (11.0-15.5); WHITE BLOOD COUNT (AUTO) 8.8 K/uL (4.8-10.8)
[2024-09-01 04:30] LABS: CREATININE 0.4 mg/dL (0.5-1.3); POTASSIUM 4.2 mmol/L (3.5-5.1)
--- NOTE | 2024-09-01 11:16 | HMCIMG ---
US VENOUS DOPPLER BILATERAL HISTORY: Elevated d-dimer COMPARISON: None TECHNIQUE: Bilateral lower extremity venous Doppler ultrasound study was performed. FINDINGS: The common femoral, femoral, popliteal, and posterior tibial veins are visualized. Normal flow with augmentation and compressibilities are demonstrated. The greater saphenous veins are also seen and grossly patent. IMPRESSION: 1. No evidence of deep venous thrombosis is seen.
[2024-09-01 14:13] LABS: ABG BASE EXCESS -1.7 mmol/L (-2.0-3.0); ABG HCO3 25.4 mmol/L (21.0-28.0); ABG OXYGEN SATURATION 87.9 % (94.0-98.0); ABG PCO2 52 mmHg (35-48); ABG PH 7.307 (7.350-7.450); CPAP, BG 5 cm H2O; PO2, ARTERIAL BG 59.1 mmHg (83.0-108.0); VENT MODE, BG CPAP 5 PS 5 (ROOM AIR)
--- NOTE | 2024-09-01 14:21 | PN ---
[facility] PROGRESS NOTE Date Patient Seen: Sep 01, 2024 Time of Visit: 14:15 Supervising Physician: Dr. Baker Supervising Physician: Dr. Joel Soto Primary Care Physician: [Dr. Zafar Harris ] Outpatient Specialists: [ ] Inpatient Consults: PROBLEM LIST: Acute on chronic hypoxemic and hypercapnic respiratory reintubated 08/29/24 Severe COPD/asthma/emphysema recurrent exacerbation-POA Septic Shock POA requiring PRESSORS, resolved 2/2 Gram-positive cocci bacteremia, POA, on repeat neg BC (likely contamination) Acute on chronic hypoxic hypercapnic respiratory failure requiring vent support- POA Intubated POA, extubated 08/22/24 Elevated D-Dimer Neg DVT, Well's score for PE 4.5 (moderate risk) pending CTA to r/o PE Viral community-acquired pneumonia + Influenza A W/ superimposed bacterial Pneumonia -POA 2nd to MSSA Constipation with firm abdomen r/o sbo Hypochloremia-POA Hypokalemia Primary hypertension Diabetes mellitus HLD Chronic nicotine disorder Obstructive sleep apnea Polysubstance abuse with tobacco, cocaine and alcohol Fatty Liver Morbid obese, BMI 39.9 INTERVAL HISTORY: 08/29/24- overnight patient became lethargic and retaining CO2 patient had to be emergently intubated due to failing BiPAP and pt refusing to keep Bipap on over night. . Patient was transferred to ICU for acute hypoxemic and hypercapnic. Initial ABG with pH of 7.20, pCO2 of 122, PO2 114. Now ABG shows a pH of 7.53, pCO2 of 49, PO2 of 68, bicarb of 40.4 with ventilator settings of assist control volume control FiO2 of 60% and PEEP of eight, respiratory rate of 20 and tidal volume of 500. WBCs are normal, H&H similar to yesterday platelet count is 127 K. chemistries sodium is 150 potassium is 3.5 carbon dioxide of 43 BUN of 20 creatinine of 0.4 glucose of 186 mg/dL. On chest x-ray mild bilateral pulmonary infiltrates are seen may be related to mild pulmonary vascular congestion with possible superimposed pneumonitis. We will continue mechanical ventilation support. Patient has previous multiple visits to the hospital with intubation. He has failed extubation and I spoke to his brother who is his POA and discu and discussed with him the possibility of tracheostomy and PEG tube placement due to advanced COPD. As per brother he is going to talk it over with more family and think about the decision to go through with PEG and trach. Fow now we will optimize oxygenation and when we have and FiO2 requirement of less than 50% and a PEEP of 5-6, then we may consult general surgery for trach and PEG if in agreement with family/pt. 08/30/2024: At the time of my evaluation, the patient is lying in bed. The blood pressure trend is soft and heart rate in the 50s with respiratory rates in the 20s. He continues intubated and mechanically vented. ABG today showed a pH of 7.55, pCO2 39, PO2 57.6 NaHCO3 of 33.3. The patient remains on ACVC mode FiO2 30% tidal volume of 500 and a PEEP of 8. Vital signs showed soft blood pressure readings 94/55, heart rate 53 and a respiratory rate of 23. I&Os showed a total voided urine of 1200 with a positive balance of 847.0. Laborato ry data showed a WBC of 8.5, H&H 11.4/37.2 , MCV 98.2 and a MCH of 30.1 and a platelet count of 122. Chemistry panel showed no electrolyte derangement. CO2 of 38, BUN 22, creatinine of 0.5 and a GFR of 116. No imaging was obtained today. 08/31/2024: At the time of my evaluation, the patient is lying in bed. He remains intubated currently on CPAP mode in attempt to wean off the vent. ABGs today showed pH of 7.47, pCO2 41, PO2 65.5, HC03 of 28.9. All sedatives have been turned off. Vital signs show normotension, but the patient is tachypneic in the 40s. Laboratory data today showed no major derangements on CBC and Chemistry panel. Urine total [id number] out with a + balance of 145.5. No new microbiology data for review. Chest x-ray still showing pulmonary infiltrates and vascular congestion. No acute events reported overnight. 09/01/2024: At the time of my evaluation, the patient is lying in bed. The staff nurse reports no acute events overnight. The patient was placed on CPAP mode 5/5, 30% pulling volumes of 500. Vital signs are currently showing blood pressure of 133/97, pulse of 54 and a respiratory rate of 22 with a pulse oximeter of 96%. Laboratory data showed no major derangement. No microbiology data for review today. No imaging for review today. No new complaint. REVIEW OF SYSTEMS: Unable to perform due to patient intubated and sedated. PHYSICAL EXAM: GENERAL: Sedated intubated. HEENT: Sclera non icteric, moist mucosa NECK: Short neck, no JVD, trachea midline LUNGS: Diminished to all lobes bilaterally,. No wheezes HEART: Regular rate and rhythm. Normal S1 and S2, without murmurs ABD: Abdomen obese firm, nontender. Bowel sounds present EXT: No clubbing cyanosis or edema NEURO: Sedated and intubated. No focal weakness. Vital Signs (last 8hr) Date Time Temp Pulse Resp B/P (MAP) Pulse Ox O2 Delivery O2 Flow Rate FiO2 09/01/24 13:16 54 22 133/97 96 Ventilator 09/01/24 13:01 60 22 96 09/01/24 12:46 50 22 140/73 95 Ventilator 09/01/24 12:31 57 22 97 09/01/24 12:16 98.2 50 22 141/73 100 Ventilator 09/01/24 12:14 57 16 09/01/24 12:10 30 09/01/24 12:06 48 30 09/01/24 12:01 48 28 95 09/01/24 12:01 96 Ventilator+ 30 09/01/24 12:00 30 09/01/24 11:46 47 22 134/76 95 Ventilator 30 09/01/24 11:16 50 26 142/77 97 09/01/24 10:46 51 22 145/73 96 09/01/24 10:16 50 25 133/72 97 Ventilator 30 09/01/24 09:46 52 26 130/72 97 09/01/24 09:39 52 30 09/01/24 09:16 57 22 151/77 97 Ventilator 30 09/01/24 08:46 52 22 147/75 97 09/01/24 08:16 98.1 49 22 137/69 95 Ventilator 30 09/01/24 08:15 51 22 96 09/01/24 08:00 96 Ventilator+ 30 09/01/24 08:00 30 09/01/24 08:00 57 22 95 09/01/24 08:00 30 09/01/24 07:46 47 22 157/82 91 Ventilator 30 09/01/24 07:45 52 19 91 09/01/24 07:30 43 18 99 09/01/24 07:16 47 20 137/72 100 Ventilator 30 09/01/24 07:15 45 18 100 09/01/24 07:00 52 22 100 09/01/24 06:54 50 30 09/01/24 06:49 50 16 LABS: Hematology Labs: Test 09/01/24 04:03 08/31/24 04:07 Range/Units White Blood Count 8.8 4.8-10.8 K/uL Red Blood Count 3.57 L 4.50-6.20 MIL/uL Hemoglobin 10.6 L 14.0-18.0 g/dL Hematocrit 33.8 L 42-54 % Mean Corpuscular Volume 94.7 79-99 fL Mean Corpuscular Hemoglobin 29.7 27.0-33.0 pg Mean Corpuscular Hemoglobin Concent 31.4 L 32.0-36.0 g/dL Red Cell Distribution Width 12.9 11.0-15.5 % Platelet Count 102 L 130-400 K/uL Mean Platelet Volume 10.6 H 7.5-10.5 fL Immature Granulocyte % (Auto) 1.5 H 0-1 % Neutrophils (%) (Auto) 86.3 H 40.0-77.0 % Lymphocytes (%) (Auto) 7.4 L 21.0-51.0 % Monocytes (%) (Auto) 4.7 3.0-13.0 % Eosinophils (%) (Auto) 0.0 0.0-8.0 % Basophils (%) (Auto) 0.1 0.0-5.0 % Neutrophils # (Auto) 7.6 1.8-7.7 K/uL Lymphocytes # (Auto) 0.7 L 1.0-4.8 K/uL Monocytes # (Auto) 0.4 0.1-1.0 K/uL Eosinophils # (Auto) 0.00 0.00-0.70 K/uL Basophils # (Auto) 0.01 0.00-0.20 K/uL Absolute Immature Granulocyte (auto 0.13 0-1 K/uL Nucleated Red Blood Cells 0.2 H 0.0-0.19 % Red Blood Cell Morphology See comments Chemistry Labs: Test 09/01/24 11:22 09/01/24 04:03 Range/Units Whole Blood Glucose 99 70-110 MG/DL Sodium Level 142 136-145 mmol/L Potassium Level 4.2 3.5-5.1 mmol/L Chloride Level 107 101-111 mmol/L Carbon Dioxide Level 28 21-32 mmol/L Blood Urea Nitrogen 20 H 7-18 mg/dL Creatinine 0.4 L 0.5-1.3 mg/dL Glomerular Filtration Rate Calc 124 >90 mL/min Random Glucose 109 H 70-105 mg/dL Total Calcium 8.5 8.5-10.1 mg/dL DIAGNOSTICS / RADIOLOGY RESULTS: [ ] PLAN 09/01/2024: For now, going to continue current management for the patient. We will continue on CPAP trial in the possibility that we may be able to extubate the patient. I am going to request a repeat ABG to evaluate gas exchange. Of note, if we are unable to extubate the patient, he is nearing the possibility of a trach and PEG creation due to extended course of intubation with multiple failed weaning trials. Versed and fentanyl for sedation. We will continue to monitor the patient's progress and response to management. Continue to provide general supportive care, GI and DVT prophylaxis. Further orders per attending MD and hospital course. NEURO: Minimize central acting medications as possible. Maintain fall precautions, adequate lighting during the day PULMONARY: Supplemental 02 as needed. Maintain aspiration precautions at all times CARDIOVASCULAR: Follow hemodynamics. Vital signs per facility protocol GI & NUTRITION: Continue with nutritional support. Continue stool softeners and laxatives as needed. KIDNEYS & ELECTROLYTES: Strict monitoring of intake, output and overall fluid balance. Avoid nephrotoxic medications to the extent possible. Medications to be dosed according to renal function. Monitor electrolytes and replace as needed ENDOCRINE: Maintain blood glucose between 100-180 at all times. Hypoglycemia protocol in place INFECTIOUS DISEASE: Trend temperature, WBC and procalcitonin level Follow cultures, deescalate antibiotics as soon as possible. Panculture if new onset fever ONCOLOGY/HEMATOLOGY/COAGULATION: Monitor for s/s of bleeding Monitor hemoglobin, coagulation studies as needed SKIN: Pressure ulcer prevention per facility protocol Specialty mattress ORTHO/REHAB: Continue PT/OT Prophylaxis: Continue GI and DVT prophylaxis Code Status: Full Resuscitation Disposition: TBD Other: Total patient care time: 35 minutes MONAE FRANCIS NP Sep 01, 2024 14:21
[2024-09-01 20:59] LABS: ABG BASE EXCESS 1.6 mmol/L (-2.0-3.0); ABG HCO3 24.7 mmol/L (21.0-28.0); ABG OXYGEN SATURATION 94.7 % (94.0-98.0); ABG PCO2 34 mmHg (35-48); CARBON MONOXIDE 0.2 % (0.5-1.5); DEVICE COMMENT JAMES RN, RR; HHb 5.3; PO2, ARTERIAL BG 71.8 mmHg (83.0-108.0); VENT MODE, BG AC (ROOM AIR)
[2024-09-02] VITALS (81 sets, daily range): BP systolic 110–167; BP diastolic 50–98; PULSE 40–67; RESP 12–37; TEMP 97.4–98.8; O2SAT 97–99
[2024-09-02 04:18] LABS: BASOPHILS # (AUTO) 0.01 K/uL (0.00-0.20); BASOPHILS % (AUTO) 0.1 % (0.0-5.0); IMMATURE GRANULOCYTE ABSOLUTE 0.13 K/uL (0-1); LYMPHOCYTES # (AUTO) 0.5 K/uL (1.0-4.8); LYMPHOCYTES % (AUTO) 5.4 % (21.0-51.0); MEAN CORPUSCULAR HEMOGLOBIN 29.7 pg (27.0-33.0); MEAN CORPUSCULAR HGB CONC 31.4 g/dL (32.0-36.0); MEAN CORPUSCULAR VOLUME 94.6 fL (79-99); MONOCYTES # (AUTO) 0.4 K/uL (0.1-1.0); MONOCYTES % (AUTO) 4.7 % (3.0-13.0); NEUTROPHILS # (AUTO) 8.3 K/uL (1.8-7.7); NEUTROPHILS % (AUTO) 88.4 % (40.0-77.0); NUCLEATED RED BLOOD CELLS 0.2 % (0.0-0.19); PLATELET COUNT (AUTO) 102 K/uL (130-400); RED CELL DISTRIBUTION WIDTH 12.7 % (11.0-15.5); WHITE BLOOD COUNT (AUTO) 9.4 K/uL (4.8-10.8)
[2024-09-02 04:27] LABS: CREATININE 0.4 mg/dL (0.5-1.3)
--- NOTE | 2024-09-02 10:41 | NUR ---
updated Stu mariano about pt and family's approval for trach and peg, order for general surgery consult was placed, barbie Bell silver miner for dr. march made aware. pending further orders.
--- NOTE | 2024-09-02 13:34 | NUR ---
Nutritional f/u Note: Chart, meds, and labs Reviewed. Pt initially on [facility] soft 30gm cc diet with 50-100% PO intake before requiring intubation on 08/29/24. Pt currently intubated on TF vitial .12 @55ml/hr with 250ml H20 flush q 6. TFprovides 1584kcal, 79gm pro and 1026 free h2o/day. Pt pending trachesostomy and PEG tube placement per family and General surgery consult. Abnormal nutrition related labs:Na 131, cl 99, ca 8.3, alb 2.5 Wt Status: current wt 103kg down 6kg from admit wt. wt change may be due to fluid shifts rather than lean mass, and/or method of weighing bed scale vs standing. Recommend: -Continue current TF regimen while in ICU. -Prostat 30ml w/ 150ml flush BID @0600 and 1600hrs. -Once PEG is placed, reassess TF regimen to optimize energy , protein, and micronutrient intake. -Monitor fluid balance, and sodium trends. -RD to provide further recommendations based on clinical progress. -Monitor feeding tolerance, %, wt, and labs -If No BM >3days consider bowel stimulant. - Please notify RD if additional nutrition concerns arise. Addendum: 09/02/24 at [address] Amended: Links added.
--- NOTE | 2024-09-02 15:38 | NUR ---
ulices franklin at bedside aware of consult and updated on pt status, pending new orders.
--- NOTE | 2024-09-02 16:11 | CONS ---
CONSULT NOTE: Consulting physician: ICU team Consulting service: General surgery Reason for consultation: Trach and PEG placement History of present illness: Medical history: Surgical history: Review of systems: Unable to obtain Physical exam: GENERAL: Sedated intubated. HEENT: Sclera non icteric, moist mucosa NECK: Short neck, no JVD, trachea midline LUNGS: Diminished to all lobes bilaterally,. No wheezes HEART: Regular rate and rhythm. Normal S1 and S2, without murmurs ABD: Abdomen obese firm, nontender. Bowel sounds present EXT: No clubbing cyanosis or edema NEURO: Sedated and intubated. No focal weakness. Assessment: This is a 59-year-old male with concerns of respiratory distress and dysphagia with inability to extubate in need of trach and PEG Plan: Patient to be discussed with Dr. Claudio Plan will be for tracheostomy and PEG placement early this week Patient to continue with ICU recommendations Nursing report any further acute events Lovenox to continue to be held the day before surgery UMA SOLIS Jr. Sep 02, 2024 16:11
--- NOTE | 2024-09-02 21:11 | PN ---
[facility] PROGRESS NOTE Date Patient Seen: Sep 02, 2024 Time of Visit: 21:01 Supervising Physician: Dr. Cervantes Supervising Physician: Dr. Joel Soto Primary Care Physician: [Dr. Zafar Harris ] Outpatient Specialists: [ ] Inpatient Consults: PROBLEM LIST: Acute on chronic hypoxemic and hypercapnic respiratory reintubated 08/29/24 Severe COPD/asthma/emphysema recurrent exacerbation-POA Septic Shock POA requiring PRESSORS, resolved 2/2 Gram-positive cocci bacteremia, POA, on repeat neg BC (likely contamination) Acute on chronic hypoxic hypercapnic respiratory failure requiring vent support- POA Intubated POA, extubated 08/22/24 Elevated D-Dimer Neg DVT, Well's score for PE 4.5 (moderate risk) pending CTA to r/o PE Viral community-acquired pneumonia + Influenza A W/ superimposed bacterial Pneumonia -POA 2nd to MSSA Hyponatremia Hypochloremia-POA Hypokalemia corrected Primary hypertension Diabetes mellitus HLD Chronic nicotine disorder Obstructive sleep apnea Polysubstance abuse with tobacco, cocaine and alcohol Fatty Liver Morbid obese, BMI 39.9 INTERVAL HISTORY: 08/29/24- overnight patient became lethargic and retaining CO2 patient had to be emergently intubated due to failing BiPAP and pt refusing to keep Bipap on over night. . Patient was transferred to ICU for acute hypoxemic and hypercapnic. Initial ABG with pH of 7.20, pCO2 of 122, PO2 114. Now ABG shows a pH of 7.53, pCO2 of 49, PO2 of 68, bicarb of 40.4 with ventilator settings of assist control volume control FiO2 of 60% and PEEP of eight, respiratory rate of 20 and tidal volume of 500. WBCs are normal, H&H similar to yesterday platelet count is 127 K. chemistries sodium is 150 potassium is 3.5 carbon dioxide of 43 BUN of 20 creatinine of 0.4 glucose of 186 mg/dL. On chest x-ray mild bilateral pulmonary infiltrates are seen may be related to mild pulmonary vascular congestion with possible superimposed pneumonitis. We will continue mechanical ventilation support. Patient has previous multiple visits to the hospital with intubation. He has failed extubation and I spoke to his brother who is his POA and discu and discussed with him the possibility of tracheostomy and PEG tube placement due to advanced COPD. As per brother he is going to talk it over with more family and think about the decision to go through with PEG and trach. Fow now we will optimize oxygenation and when we have and FiO2 requirement of less than 50% and a PEEP of 5-6, then we may consult general surgery for trach and PEG if in agreement with family/pt. 08/30/2024: At the time of my evaluation, the patient is lying in bed. The blood pressure trend is soft and heart rate in the 50s with respiratory rates in the 20s. He continues intubated and mechanically vented. ABG today showed a pH of 7.55, pCO2 39, PO2 57.6 NaHCO3 of 33.3. The patient remains on ACVC mode FiO2 30% tidal volume of 500 and a PEEP of 8. Vital signs showed soft blood pressure readings 94/55, heart rate 53 and a respiratory rate of 23. I&Os showed a total voided urine of 1200 with a positive balance of 847.0. Laborato ry data showed a WBC of 8.5, H&H 11.4/37.2 , MCV 98.2 and a MCH of 30.1 and a platelet count of 122. Chemistry panel showed no electrolyte derangement. CO2 of 38, BUN 22, creatinine of 0.5 and a GFR of 116. No imaging was obtained today. 08/31/2024: At the time of my evaluation, the patient is lying in bed. He remains intubated currently on CPAP mode in attempt to wean off the vent. ABGs today showed pH of 7.47, pCO2 41, PO2 65.5, HC03 of 28.9. All sedatives have been turned off. Vital signs show normotension, but the patient is tachypneic in the 40s. Laboratory data today showed no major derangements on CBC and Chemistry panel. Urine total [id number] out with a + balance of 145.5. No new microbiology data for review. Chest x-ray still showing pulmonary infiltrates and vascular congestion. No acute events reported overnight. 09/01/2024: At the time of my evaluation, the patient is lying in bed. The staff nurse reports no acute events overnight. The patient was placed on CPAP mode 5/5, 30% pulling volumes of 500. Vital signs are currently showing blood pressure of 133/97, pulse of 54 and a respiratory rate of 22 with a pulse oximeter of 96%. Laboratory data showed no major derangement. No microbiology data for review today. No imaging for review today. No new complaint. 09/02/2024: At the time of my evaluation, the patient is lying in bed. He remains intubated and on mechanical ventilator support. Vital signs today are generally stable. I and O showing a urine total output of 1400 mL and a positive balance of 44. Laboratory data today showed a WBC of 9.4, with a neutrophil count of 88.4 % and a lymphocyte count of 5.4% hemoglobin of 11.0, hematocrit of 35.0 and a platelet count of 102. Chemistry panel showed a drop in sodium to 131, potassium of 4.0, chloride of 99, CO2 of 28, BUN of 18 and a creatinine of 0.4. No imaging for review today. No new complaint. REVIEW OF SYSTEMS: Unable to perform due to patient intubated and sedated. PHYSICAL EXAM: GENERAL: Sedated intubated. HEENT: Sclera non icteric, moist mucosa NECK: Short neck, no JVD, trachea midline LUNGS: Diminished to all lobes bilaterally,. No wheezes HEART: Regular rate and rhythm. Normal S1 and S2, without murmurs ABD: Abdomen obese firm, nontender. Bowel sounds present EXT: No clubbing cyanosis or edema NEURO: Sedated and intubated. No focal weakness. Vital Signs (last 8hr) Date Time Temp Pulse Resp B/P (MAP) Pulse Ox O2 Delivery O2 Flow Rate FiO2 09/02/24 19:13 58 23 09/02/24 19:13 58 30 09/02/24 18:16 58 22 123/68 98 Ventilator 30 09/02/24 17:46 63 35 124/62 97 Ventilator 30 09/02/24 17:17 65 12 123/65 97 Ventilator 30 09/02/24 16:48 67 17 155/59 97 Ventilator 30 09/02/24 16:31 30 09/02/24 16:17 98.8 63 22 137/76 97 Ventilator 30 09/02/24 16:16 62 22 97 09/02/24 16:01 63 22 97 09/02/24 16:00 99 Ventilator+ 30 09/02/24 15:48 58 22 137/72 98 Ventilator 30 09/02/24 15:46 59 30 97 09/02/24 15:31 65 22 97 09/02/24 15:16 53 22 135/70 98 Ventilator 30 09/02/24 15:07 53 30 09/02/24 15:01 54 22 98 09/02/24 14:46 54 22 167/53 97 Ventilator 30 09/02/24 14:45 55 31 97 09/02/24 14:30 57 22 98 09/02/24 14:18 55 22 136/76 97 Ventilator 30 09/02/24 14:15 59 22 95 09/02/24 14:08 57 28 138/69 97 Ventilator 30 09/02/24 14:00 55 22 97 Ventilator 30 09/02/24 13:45 57 37 97 09/02/24 13:45 57 22 97 Ventilator 09/02/24 13:30 56 22 97 09/02/24 13:16 55 22 138/71 98 Ventilator 30 09/02/24 13:15 57 22 96 LABS: Hematology Labs: Test 09/02/24 03:51 Range/Units White Blood Count 9.4 4.8-10.8 K/uL Red Blood Count 3.70 L 4.50-6.20 MIL/uL Hemoglobin 11.0 L 14.0-18.0 g/dL Hematocrit 35.0 L 42-54 % Mean Corpuscular Volume 94.6 79-99 fL Mean Corpuscular Hemoglobin 29.7 27.0-33.0 pg Mean Corpuscular Hemoglobin Concent 31.4 L 32.0-36.0 g/dL Red Cell Distribution Width 12.7 11.0-15.5 % Platelet Count 102 L 130-400 K/uL Mean Platelet Volume 10.9 H 7.5-10.5 fL Immature Granulocyte % (Auto) 1.4 H 0-1 % Neutrophils (%) (Auto) 88.4 H 40.0-77.0 % Lymphocytes (%) (Auto) 5.4 L 21.0-51.0 % Monocytes (%) (Auto) 4.7 3.0-13.0 % Eosinophils (%) (Auto) 0.0 0.0-8.0 % Basophils (%) (Auto) 0.1 0.0-5.0 % Neutrophils # (Auto) 8.3 H 1.8-7.7 K/uL Lymphocytes # (Auto) 0.5 L 1.0-4.8 K/uL Monocytes # (Auto) 0.4 0.1-1.0 K/uL Eosinophils # (Auto) 0.00 0.00-0.70 K/uL Basophils # (Auto) 0.01 0.00-0.20 K/uL Absolute Immature Granulocyte (auto 0.13 0-1 K/uL Nucleated Red Blood Cells 0.2 H 0.0-0.19 % Chemistry Labs: Test 09/02/24 20:01 09/02/24 03:51 Range/Units Whole Blood Glucose 146 H 70-110 MG/DL Sodium Level 131 L 136-145 mmol/L Potassium Level 4.0 3.5-5.1 mmol/L Chloride Level 99 L 101-111 mmol/L Carbon Dioxide Level 28 21-32 mmol/L Blood Urea Nitrogen 18 7-18 mg/dL Creatinine 0.4 L 0.5-1.3 mg/dL Glomerular Filtration Rate Calc 124 >90 mL/min Random Glucose 129 H 70-105 mg/dL Total Calcium 8.3 L 8.5-10.1 mg/dL DIAGNOSTICS / RADIOLOGY RESULTS: [ ] PLAN Maintain O2 sats above 92% Continue duo Atrovent q.6 hours p.r.n. BiPAP at HS and p.r.n. CTA chest to rule out PE Continue GI and DVT prophylaxis PT to eval and treat Wean o2 as permitted. ABG in AM Steroids Solu-medrol 40mg IV q 8 hrs. Continue IV ABX with Cefepim and Doxy -Arrange outpatient pulmonology referral for sleep study, PFT and follow-up management upon discharge sedation vacation q am to assess mental status/. Fow now he is on fentanyl and versed , mynor off versed first . 08/30/2024: For now, we are going to continue current management for the patient. We are going to to initiate spontaneous breathing trial in a.m. attempting to extubate the patient soon. He is going to continue on steroid therapy, empiric antibiotic therapy and bronchodilator therapy. I am going to request a chest x-ray in a.m.. We will also request an ABG prior to starting th e spontaneous breathing trials. We will monitor the patient's progress and response to management. We will continue to provide general supportive care, GI and DVT prophylaxis. Further orders per attending MD and hospital course. 08/31/2024: For now, we are going to continue current management for the patient. The plan is to wean off the vent. We will continue spontaneous b reathing trials and see of the patient will tolerate. We are going to continue with steroid therapy, Solu-Medrol 40 mg q.8h IV. He will continue on antibiotic coverage covered currently with cefepime and doxycycline. We will monitor the patient's progress and response to management. We will continue to provide general supportive care, GI and DVT prophylaxis. Further orders per attending MD and hospital course. 09/01/2024: For now, going to continue current management for the patient. We w ill continue on CPAP trial in the possibility that we may be able to extubate the patient. I am going to request a repeat ABG to evaluate gas exchange. Of note, if we are unable to extubate the patient, he is nearing the possibility of a trach and PEG creation due to extended course of intubation with multiple failed weaning trials. Versed and fentanyl for sedation. We will continue to monitor the patient's progress and response to management. Continue to provide general supportive care, GI and DVT prophylaxis. Further orders per attending MD and hospital course. 09/02/2024: For now, going to continue current management for the patient. Considering the patient has failed multiple weaning trials, I have discussed with the patient and family member present at the bedside regarding the plans for possible trach and PEG creation. Patient has agreed to proceed for which we are going to consult the General surgery team. In the meantime, the patient will remain intubated and on mechanical ventilator support. We will keep an eye on the electrolyte changes that showed a significant drop of sodium and chloride count two on today's labs. We will monitor the patient's progress and response to management. Further orders per attending MD and hospital course. NEURO: Minimize central acting medications as possible. Fall Precautions. Well lighted room through the day and minimize interruptions through the night to prevent acute delirium. PULMONARY: Supplemental 02 as needed Titrate Fio2 to keep Spo2 > or = 90% DuoNebs and CPT as needed Ventilator settings ACVC: Tv 500, RR 20, FIO2 of 60% and peep of 8 adjust as needed per ABG's IS hourly while awake for pulmonary hygiene went off vent CARDIOVASCULAR: Follow hemodynamics. Titrate vasopressor to keep MAP >65 or systolic blood pressure >95mmHg Drips: Levophed at 0.02 micrograms/kilogram per minute Fentanyl Versed LINES: PICC line GI & NUTRITION: Continue nutritional support Aspirations precautions Prokinetic agents and laxatives as needed No bowel movements documented. Mechanical soft diet KIDNEYS & ELECTROLYTES: Strict monitoring of intake and output Daily weights Avoid nephrotoxic agents Monitor electrolytes and replace as needed Goal urine output of 30mL/hr or 0.5mL/kg/hr ENDOCRINE: Maintain blood glucose between 100-180 at all times. Insulin sliding scale for blood glucose management INFECTIOUS DISEASE: Trend temperature. Patricio-culture if febrile. Currently afebrile Micro: Blood cultures negative Urine culture negative Respiratory cultures Sputum grew MSSA, patient completed antibiotic course Influenza B negative (patient is positive for influenza A) COVID-19 negative Antibiotics: Cefepime and doxycycline HEMATOLOGY & COAGULATION: Monitor H&H. Keep Hgb > 7 Transfuse 1 unit of PRBC for Hgb < 7 Transfuse 1 pack of platelets of platelets < 20, 000 Watch for any signs and symptoms of bleeding SKIN: Pressure ulcer prevention per facility protocol Rehab: PT/OT out of bed to chair. Prophylaxis: GI: Protonix 30 mg IV push bid DVT: Lovenox Code Status: Full Resuscitation Disposition: ICU Other: Total patient care time exceeds 60 minutes excluding all procedures. Case was discussed and seen with my supervising physician. The above plan was formulated and agreed upon. MONAE FRANCIS NP Sep 02, 2024 21:11
[2024-09-03] VITALS (60 sets, daily range): BP systolic 103–160; BP diastolic 41–109; PULSE 46–79; RESP 16–82; TEMP 97.7–99.8; O2SAT 94–100
[2024-09-03 03:54] LABS: BASOPHILS # (AUTO) 0.01 K/uL (0.00-0.20); BASOPHILS % (AUTO) 0.1 % (0.0-5.0); HEMATOCRIT 38.6 % (42-54); IMMATURE GRANULOCYTE ABSOLUTE 0.17 K/uL (0-1); LYMPHOCYTES # (AUTO) 0.7 K/uL (1.0-4.8); LYMPHOCYTES % (AUTO) 5.7 % (21.0-51.0); MEAN CORPUSCULAR HEMOGLOBIN 30.1 pg (27.0-33.0); MEAN CORPUSCULAR HGB CONC 32.6 g/dL (32.0-36.0); MEAN CORPUSCULAR VOLUME 92.3 fL (79-99); MONOCYTES # (AUTO) 0.9 K/uL (0.1-1.0); MONOCYTES % (AUTO) 7.6 % (3.0-13.0); NEUTROPHILS # (AUTO) 9.9 K/uL (1.8-7.7); NEUTROPHILS % (AUTO) 85.1 % (40.0-77.0); PLATELET COUNT (AUTO) 129 K/uL (130-400); RED BLOOD CELL COUNT(AUTO) 4.18 MIL/uL (4.50-6.20); RED CELL DISTRIBUTION WIDTH 12.8 % (11.0-15.5); WHITE BLOOD COUNT (AUTO) 11.6 K/uL (4.8-10.8)
[2024-09-03 04:08] LABS: CREATININE 0.4 mg/dL (0.5-1.3)
--- NOTE | 2024-09-03 13:27 | PN ---
[facility] PROGRESS NOTE Date Patient Seen: Sep 03, 2024 Time of Visit: 13:25 Supervising Physician: Dr. Corea Supervising Physician: Dr. Joel Soto Primary Care Physician: [Dr. Zafar Harris ] Outpatient Specialists: [ ] Inpatient Consults: PROBLEM LIST: Acute on chronic hypoxemic and hypercapnic respiratory reintubated 08/29/24, Failed weaning trials. Severe COPD/asthma/emphysema recurrent exacerbation-POA Septic Shock POA requiring PRESSORS, resolved 2/2 Gram-positive cocci bacteremia, POA, on repeat neg BC (likely contamination) Acute on chronic hypoxic hypercapnic respiratory failure requiring vent support- POA Intubated POA, extubated 08/22/24 Elevated D-Dimer Neg DVT, Well's score for PE 4.5 (moderate risk) pending CTA to r/o PE Viral community-acquired pneumonia + Influenza A W/ superimposed bacterial Pneumonia -POA 2nd to MSSA Hyponatremia Hypochloremia-POA Hypokalemia corrected Primary hypertension Diabetes mellitus HLD Chronic nicotine disorder Obstructive sleep apnea Polysubstance abuse with tobacco, cocaine and alcohol Fatty Liver Morbid obese, BMI 39.9 INTERVAL HISTORY: 08/29/24- overnight patient became lethargic and retaining CO2 patient had to be emergently intubated due to failing BiPAP and pt refusing to keep Bipap on over night. . Patient was transferred to ICU for acute hypoxemic and hypercapnic. Initial ABG with pH of 7.20, pCO2 of 122, PO2 114. Now ABG shows a pH of 7.53, pCO2 of 49, PO2 of 68, bicarb of 40.4 with ventilator settings of assist control volume control FiO2 of 60% and PEEP of eight, respiratory rate of 20 and tidal volume of 500. WBCs are normal, H&H similar to yesterday platelet count is 127 K. chemistries sodium is 150 potassium is 3.5 carbon dioxide of 43 BUN of 20 creatinine of 0.4 glucose of 186 mg/dL. On chest x-ray mild bilateral pulmonary infiltrates are seen may be related to mild pulmonary vascular congestion with possible superimposed pneumonitis. We will continue mechanical ventilation support. Patient has previous multiple visits to the hospital with intubation. He has failed extubation and I spoke to his brother who is his POA and discu and discussed with him the possibility of tracheostomy and PEG tube placement due to advanced COPD. As per brother he is going to talk it over with more family and think about the decision to go through with PEG and trach. Fow now we will optimize oxygenation and when we have and FiO2 requirement of less than 50% and a PEEP of 5-6, then we may consult general surgery for trach and PEG if in agreement with family/pt. 08/30/2024: At the time of my evaluation, the patient is lying in bed. The blood pressure trend is soft and heart rate in the 50s with respiratory rates in the 20s. He continues intubated and mechanically vented. ABG today showed a pH of 7.55, pCO2 39, PO2 57.6 NaHCO3 of 33.3. The patient remains on ACVC mode FiO2 30% tidal volume of 500 and a PEEP of 8. Vital signs showed soft blood pressure readings 94/55, heart rate 53 and a respiratory rate of 23. I&Os showed a total voided urine of 1200 with a positive balance of 847.0. Laboratory data showed a WBC of 8.5, H&H 11.4/37.2 , MCV 98.2 and a MCH of 30.1 and a platelet count of 122. Chemistry panel showed no electrolyte derangement. CO2 of 38, BUN 22, creatinine of 0.5 and a GFR of 116. No imaging was obtained today. 08/31/2024: At the time of my evaluation, the patient is lying in bed. He remains intubated currently on CPAP mode in attempt to wean off the vent. ABGs today showed pH of 7.47, pCO2 41, PO2 65.5, HC03 of 28.9. All sedatives have been turned off. Vital signs show normotension, but the patient is tachypneic in the 40s. Laboratory data today showed no major derangements on CBC and Chemistry panel. Urine total [id number] out with a + balance of 145.5. No new microbiology data for review. Chest x-ray still showing pulmonary infiltrates and vascular congestion. No acute events reported overnight. 09/01/2024: At the time of my evaluation, the patient is lying in bed. The staff nurse reports no acute events overnight. The patient was placed on CPAP mode 5/5, 30% pulling volumes of 500. Vital signs are currently showing blood pressure of 133/97, pulse of 54 and a respiratory rate of 22 with a pulse oximeter of 96%. Laboratory data showed no major derangement. No microbiology data for review today. No imaging for review today. No new complaint. 09/02/2024: At the time of my evaluation, the patient is lying in bed. He remains intubated and on mechanical ventilator support. Vital signs today are generally stable. I and O showing a urine total output of 1400 mL and a positive balance of 44. Laboratory data today showed a WBC of 9.4, with a neutrophil count of 88.4 % and a lymphocyte count of 5.4% hemoglobin of 11.0, hematocrit of 35.0 and a platelet count of 102. Chemistry panel showed a drop in sodium to 131, potassium of 4.0, chloride of 99, CO2 of 28, BUN of 18 and a creatinine of 0.4. No imaging for review today. No new complaint. 09/03/2024: At the time of my evaluation, the patient was lying in bed. He is awake, alert and oriented. Patient is able to follow commands, but is not verbally interactive as he remains intubated. Patient currently on AC mode with rate of 16, peep of 5, tidal volume 500 and FiO2 30%. Oxygen saturation is in the high 90s. He is currently on monitor, normotensive, not on any pressors, map of 99. Heart rate is maintained in the 80s. He currently denies any chest pain. There is no report of nausea, vomiting or diarrhea. On I's and O's show a intake of 2360.0 , a output 2300 and a negative balance of + 60. Functional licona, the patient is functional. On review of labs today, there was an increase in WBC to 11.6. Chemistry panel showed no major concern. No microbiology, pathology for review. No repeat chest x-ray for review. The staff nurse reports no acute events overnight. No other complaint. REVIEW OF SYSTEMS: Unable to perform due to patient intubated and sedated. PHYSICAL EXAM: GENERAL: Sedated intubated. HEENT: Sclera non icteric, moist mucosa NECK: Short neck, no JVD, trachea midline LUNGS: Diminished to all lobes bilaterally,. No wheezes HEART: Regular rate and rhythm. Normal S1 and S2, without murmurs ABD: Abdomen obese firm, nontender. Bowel sounds present EXT: No clubbing cyanosis or edema NEURO: Sedated and intubated. No focal weakness. Vital Signs (last 8hr) Date Time Temp Pulse Resp B/P (MAP) Pulse Ox O2 Delivery O2 Flow Rate FiO2 09/03/24 12:11 65 30 09/03/24 12:11 73 28 09/03/24 11:16 97.9 60 20 126/76 97 Ventilator 30 09/03/24 10:46 63 26 118/77 97 Ventilator 30 09/03/24 10:16 62 21 137/71 89 Ventilator 30 09/03/24 09:46 57 21 130/67 91 Ventilator 30 09/03/24 09:16 62 20 134/92 90 Ventilator 30 09/03/24 08:46 49 16 118/73 99 Ventilator 30 09/03/24 08:16 46 16 120/71 99 Ventilator 30 09/03/24 07:46 50 16 121/72 100 Ventilator 30 09/03/24 07:16 63 16 114/86 100 Ventilator 30 09/03/24 07:13 59 16 09/03/24 07:03 60 30 09/03/24 06:46 97.7 61 18 126/71 97 Ventilator 30 09/03/24 06:30 79 32 149/77 92 Ventilator 30 09/03/24 06:16 79 32 149/77 92 Ventilator 30 09/03/24 06:00 66 34 129/65 92 Ventilator 30 09/03/24 05:30 69 32 122/63 94 Ventilator 30 LABS: Hematology Labs: Test 09/03/24 03:42 Range/Units White Blood Count 11.6 H 4.8-10.8 K/uL Red Blood Count 4.18 L 4.50-6.20 MIL/uL Hemoglobin 12.6 L 14.0-18.0 g/dL Hematocrit 38.6 L 42-54 % Mean Corpuscular Volume 92.3 79-99 fL Mean Corpuscular Hemoglobin 30.1 27.0-33.0 pg Mean Corpuscular Hemoglobin Concent 32.6 32.0-36.0 g/dL Red Cell Distribution Width 12.8 11.0-15.5 % Platelet Count 129 #L 130-400 K/uL Mean Platelet Volume 10.6 H 7.5-10.5 fL Immature Granulocyte % (Auto) 1.5 H 0-1 % Neutrophils (%) (Auto) 85.1 H 40.0-77.0 % Lymphocytes (%) (Auto) 5.7 L 21.0-51.0 % Monocytes (%) (Auto) 7.6 3.0-13.0 % Eosinophils (%) (Auto) 0.0 0.0-8.0 % Basophils (%) (Auto) 0.1 0.0-5.0 % Neutrophils # (Auto) 9.9 H 1.8-7.7 K/uL Lymphocytes # (Auto) 0.7 L 1.0-4.8 K/uL Monocytes # (Auto) 0.9 0.1-1.0 K/uL Eosinophils # (Auto) 0.00 0.00-0.70 K/uL Basophils # (Auto) 0.01 0.00-0.20 K/uL Absolute Immature Granulocyte (auto 0.17 0-1 K/uL Nucleated Red Blood Cells 0.0 0.0-0.19 % Chemistry Labs: Test 09/03/24 11:56 09/03/24 03:42 Range/Units Whole Blood Glucose 175 H 70-110 MG/DL Sodium Level 135 L 136-145 mmol/L Potassium Level 4.0 3.5-5.1 mmol/L Chloride Level 101 101-111 mmol/L Carbon Dioxide Level 30 21-32 mmol/L Blood Urea Nitrogen 18 7-18 mg/dL Creatinine 0.4 L 0.5-1.3 mg/dL Glomerular Filtration Rate Calc 124 >90 mL/min Random Glucose 129 H 70-105 mg/dL Total Calcium 8.3 L 8.5-10.1 mg/dL DIAGNOSTICS / RADIOLOGY RESULTS: [ ] PLAN Maintain O2 sats above 92% Continue duo Atrovent q.6 hours p.r.n. BiPAP at HS and p.r.n. CTA chest to rule out PE Continue GI and DVT prophylaxis PT to eval and treat Wean o2 as permitted. ABG in AM Steroids Solu-medrol 40mg IV q 8 hrs. Continue IV ABX with Cefepim and Doxy -Arrange outpatient pulmonology referral for sleep study, PFT and follow-up management upon discharge sedation vacation q am to assess mental status/. Fow now he is on fentanyl and versed , mynor off versed first . 08/30/2024: For now, we are going to continue current management for the patient. We are going to to initiate spontaneous breathing trial in a.m. attempting to extubate the patient soon. He is going to continue on steroid therapy, empiric antibiotic therapy and bronchodilator therapy. I am going to request a chest x-ray in a.m.. We will also request an ABG prior to starting the spontaneous breathing trials. We will monitor the patient's progress and response to management. We will continue to provide general supportive care, GI and DVT prophylaxis. Further orders per attending MD and hospital course. 08/31/2024: For now, we are going to continue current management for the patient. The plan is to wean off the vent. We will continue spontaneous breathing trials and see of the patient will tolerate. We are going to continue with steroid therapy, Solu-Medrol 40 mg q.8h IV. He will continue on antibiotic coverage covered currently with cefepime and doxycycline. We will monitor the patient's progress and response to management. We will continue to provide general supportive care, GI and DVT prophylaxis. Further orders per attending MD and hospital course. 09/01/2024: For now, going to continue current management for the patient. We will continue on CPAP trial in the possibility that we may be able to extubate the patient. I am going to request a repeat ABG to evaluate gas exchange. Of note, if we are unable to extubate the patient, he is nearing the possibility of a trach and PEG creation due to extended course of intubation with multiple failed weaning trials. Versed and fentanyl for sedation. We will continue to monitor the patient's progress and response to management. Continue to provide general supportive care, GI and DVT prophylaxis. Further orders per attending MD and hospital course. 09/02/2024: For now, going to continue current management for the patient. Considering the patient has failed multiple weaning trials, I have discussed with the patient and family member present at the bedside regarding the plans for possible trach and PEG creation. Patient has agreed to proceed for which we are going to consult the General surgery team. In the meantime, the patient will remain intubated and on mechanical ventilator support. We will keep an eye on the electrolyte changes that showed a significant drop of sodium and chloride count two on today's labs. We will monitor the patient's progress and response to management. Further orders per attending MD and hospital course. 09/03/2024: For now, we are going to continue current management for the patient. He will continue on mechanical ventilator support. Considering the patient is not able to be weaned off the events after multiple attempts, general surgery was consulted and the plan is for trach and PEG creation. We are going to continue to monitor the vital signs and heart rhythm. We will treat any arrhythmias if needed. We will monitor for any nausea, vomiting or diarrhea events. We will repeat surveillance labs in the morning. Nursing staff to continue assisting the patient functionally in bed. Patient will need aggressive PT for rehabilitation. We will continue to provide general supportive care, GI and DVT prophylaxis. Further orders per attending MD and hospital course. NEURO: Minimize central acting medications as possible. Fall Precautions. Well lighted room through the day and minimize interruptions through the night to prevent acute delirium. PULMONARY: Supplemental 02 as needed Titrate Fio2 to keep Spo2 > or = 90% DuoNebs and CPT as needed Ventilator settings ACVC: Tv 500, RR 20, FIO2 of 60% and peep of 8 adjust as needed per ABG's IS hourly while awake for pulmonary hygiene went off vent CARDIOVASCULAR: Follow hemodynamics. Titrate vasopressor to keep MAP >65 or systolic blood pressure >95mmHg Drips: Levophed at 0.02 micrograms/kilogram per minute Fentanyl Versed LINES: PICC line GI & NUTRITION: Continue nutritional support Aspirations precautions Prokinetic agents and laxatives as needed No bowel movements documented. Mechanical soft diet KIDNEYS & ELECTROLYTES: Strict monitoring of intake and output Daily weights Avoid nephrotoxic agents Monitor electrolytes and replace as needed Goal urine output of 30mL/hr or 0.5mL/kg/hr ENDOCRINE: Maintain blood glucose between 100-180 at all times. Insulin sliding scale for blood glucose management INFECTIOUS DISEASE: Trend temperature. Patricio-culture if febrile. Currently afebrile Micro: Blood cultures negative Urine culture negative Respiratory cultures Sputum grew MSSA, patient completed antibiotic course Influenza B negative (patient is positive for influenza A) COVID-19 negative Antibiotics: Cefepime and doxycycline HEMATOLOGY & COAGULATION: Monitor H&H. Keep Hgb > 7 Transfuse 1 unit of PRBC for Hgb < 7 Transfuse 1 pack of platelets of platelets < 20, 000 Watch for any signs and symptoms of bleeding SKIN: Pressure ulcer prevention per facility protocol Rehab: PT/OT out of bed to chair. Prophylaxis: GI: Protonix 30 mg IV push bid DVT: Lovenox Code Status: Full Resuscitation Disposition: ICU Other: Total patient care time exceeds 45 minutes excluding all procedures. Case was discussed and seen with my supervising physician. The above plan was formulated and agreed upon. MONAE FRANCIS NP Sep 03, 2024 13:27
--- NOTE | 2024-09-03 17:53 | CONS ---
INFECTIOUS DISEASE CONSULTATION NOTE Date of Service: Sep 03, 2024 Reason for Consultation: Established patient, bacteremia Requesting Physician: Pulmonary team. HISTORY OF PRESENT ILLNESS: Mr. Douglas is a 58-year-old male patient with past medical history of COPD with home O2 dependent, current smoker, diabetes mellitus and hypertension who presented to the hospital with chief complaint of shortness of breath and cough. Patient denies fever or chills. On admission patient's WBC was 15.1, influenza type A was positive, respirations were in the 30s and patient was hypercapnic. While patient was in the ER he went into respiratory failure and was intubated. A chest x-ray showing bilateral pulmonary infiltrates. Sputum culture results came back positive for Staphylococcus aureus and Cleopatra albicans. Blood cultures collected on admission came back positive for Staphylococcus Cohnii, probably a contaminant. Patient is now in the ICU room 213. Currently remains intubated. Patient is awake and oriented. Per report patient failed the weaning trials and is now scheduled for a tracheostomy on Thursday. Patient is currently on cefepime and doxycycline. Continues on IV steroids and bronchodilators. Family member present at bedside. Patient had questions and were answered. REVIEW OF SYSTEMS Unable to obtain, Intubated PAST MEDICAL HISTORY: COPD with oxygen dependent. Chronic tobacco use. High cholesterol. Hypertension. Diabetes mellitus. Cocaine abuse. Medical noncompliance. PAST SURGICAL HISTORY: Coronary artery bypass grafting. Lung biopsy. PAST SOCIAL HISTORY: Patient is a current smoker and uses cocaine. FAMILY HISTORY: Hypertension. Diabetes mellitus. Coded Allergies: Iodinated Contrast Media (Unverified Allergy, Severe, SHORTNESS OF BREATH, 02/06/21) PHYSICAL EXAM EYES: Anicteric. Pupils equal and reactive. HENT: No oral thrush seen, moist Oral mucosa. NECK: Supple, no JVD or thyromegaly. RESPIRATORY: Intubated. Diminished breath sounds. CARDIOVASCULAR: S1, S2 regular. No murmur heard. ABDOMEN: Soft, non tender, bowel sounds present, no organomegaly. CENTRAL NERVOUS SYSTEM: Awake, alert, oriented x 3. SKIN: No rashes, no swelling. LYMPHATICS: No peripheral lymphadenopathy. MUSCULOSKELETAL: No joint swelling, erythema or tenderness. EXTREMITIES: No cyanosis or clubbing. BACK: No deformity, no pressure ulcer. GENITOURINARY: No dysuria or hematuria. Michele catheter. Vital Sign (Last 24 Hours) 09/03/24 09/03/24 09/03/24 11:16 12:11 15:26 Temp 97.9 Pulse 65 Resp 28 B/P (MAP) 126/76 Pulse Ox 97 O2 Delivery Ventilator FiO2 30 Intake & Output (last 24hrs) 09/02/24 09/02/24 09/03/24 15:00 23:00 07:00 Intake Total 1830.0 ml 530 ml Output Total 1500 ml 800 ml Balance 330.0 ml -270 ml LABS: Laboratory: Test 09/03/24 17:24 09/03/24 03:42 09/01/24 20:57 Range/Units Whole Blood Glucose 94 70-110 MG/DL White Blood Count 11.6 H 4.8-10.8 K/uL Red Blood Count 4.18 L 4.50-6.20 MIL/uL Hemoglobin 12.6 L 14.0-18.0 g/dL Hematocrit 38.6 L 42-54 % Mean Corpuscular Volume 92.3 79-99 fL Mean Corpuscular Hemoglobin 30.1 27.0-33.0 pg Mean Corpuscular Hemoglobin Concent 32.6 32.0-36.0 g/dL Red Cell Distribution Width 12.8 11.0-15.5 % Platelet Count 129 #L 130-400 K/uL Mean Platelet Volume 10.6 H 7.5-10.5 fL Immature Granulocyte % (Auto) 1.5 H 0-1 % Neutrophils (%) (Auto) 85.1 H 40.0-77.0 % Lymphocytes (%) (Auto) 5.7 L 21.0-51.0 % Monocytes (%) (Auto) 7.6 3.0-13.0 % Eosinophils (%) (Auto) 0.0 0.0-8.0 % Basophils (%) (Auto) 0.1 0.0-5.0 % Neutrophils # (Auto) 9.9 H 1.8-7.7 K/uL Lymphocytes # (Auto) 0.7 L 1.0-4.8 K/uL Monocytes # (Auto) 0.9 0.1-1.0 K/uL Eosinophils # (Auto) 0.00 0.00-0.70 K/uL Basophils # (Auto) 0.01 0.00-0.20 K/uL Absolute Immature Granulocyte (auto 0.17 0-1 K/uL Nucleated Red Blood Cells 0.0 0.0-0.19 % Sodium Level 135 L 136-145 mmol/L Potassium Level 4.0 3.5-5.1 mmol/L Chloride Level 101 101-111 mmol/L Carbon Dioxide Level 30 21-32 mmol/L Blood Urea Nitrogen 18 7-18 mg/dL Creatinine 0.4 L 0.5-1.3 mg/dL Glomerular Filtration Rate Calc 124 >90 mL/min Random Glucose 129 H 70-105 mg/dL Total Calcium 8.3 L 8.5-10.1 mg/dL Blood Gas Specimen Type Arterial Arterial Blood pH 7.480 H 7.350-7.450 Arterial Blood Partial Pressure CO2 34 L 35-48 mmHg Arterial Blood Partial Pressure O2 71.8 L 83.0-108.0 mmHg Arterial Blood HCO3 24.7 21.0-28.0 mmol/L Arterial Blood Oxygen Saturation 94.7 94.0-98.0 % Arterial Blood Base Excess 1.6 -2.0-3.0 mmol/L Hemoglobin (Blood Gas) 12.5 L 13.5-17.5 g/dL Sodium (Blood Gas) 132 L 136-145 MMOL/L Bedside Potassium (Blood Gas) 4.1 3.4-4.5 MMOL/L Bedside Chloride (Blood Gas) 100 98-107 MMOL/L Bedside Glucose (Blood Gas) 97 H 65-95 MG/DL Bedside Ionized Calcium (Blood Gas) 1.19 1.15-1.33 MMOL/L Bedside Lactic Acid (Blood Gas) 0.72 0.36-0.75 MMOL/L Blood Gas Temperature 37.0 35.5-37.0 CELSIUS Blood Gas Respiration Rate 16.0 min. Blood Gas Vent Mode AC ROOM AIR FiO2 30.0 % Blood Gas Tidal Volume 500 ml Blood Gas PEEP 5 cm H2O Blood Gas Specimen Comment SNOW REYES, RR DIAGNOSTICS / RADIOLOGY: PATIENT: CHRISTINE DOUGLAS ACCT: [id number] LOC: [facility] U: [id number] AGE/SX: 59/M ROOM: 215 RE08/12/[address]: SHASHA RIVERO MD : [id number] BED: 1 DIS: STATUS: ADM IN TLOC: - SPEC: [id number] J LUIS: 08/12/24 STATUS: COMP REQ: [id number] RECD: 08/13/[address]: MARY VELEZP SOURCE: BLOOD ENTR: 08/13/[address] [facility] [address]: NONE SPDESC: BLOOD JUANA ALLEN ORDERED: AERO ID & SENS Procedure Result Abril Date-Time AEROBIC ID & SENSITIVITIES Final 08/16/24 [facility] DESCRIPTION: DAY 1: GRAM POSITIVE COCCI IN CLUSTERS AEROBIC BOTTLE IDENTIFICATION AND SENSITIVITY TO FOLLOW STAPHYLOCOCCUS COHNII STA COHNII M.I.C. RX --------- ---- CLINDAMYCIN 2 I ERYTHROMYCIN >4 R VANCOMYCIN <=0.5 S OXACILLIN DORA >2 R RIFAMPIN <=1 S TETRACYCLINE <=4 S TRIMETHOPRIM/SUFLAMETHOXAZOLE 2/38 S ASSESSMENT: Acute on chronic hypoxic and hypercapnic respiratory failure, requiring in tubation. Gram-positive pneumonia. Staphylococcus bacteremia, probably a contaminant. Infection with Methicillin sensitive Staphylococcus aureus. Leukocytosis. Influenza Viral infection POA. COPD exacerbation. Diabetes mellitus. Polysubstance abuse. PLAN: Continue doxycycline IV as currently ordered . Continue cefepime IV as currently ordered. Continue critical care to support. Continue ventilatory support. Continue steroids. Continue GI prophylaxis. Continue monitoring glucose levels. We will monitor electrolytes. Patient is scheduled for PEG tube placement and tracheostomy on Thursday. Thank you for allowing ID to participate in the care of this patient. This case was reviewed and discussed with my supervising physician and the above assessment and plan was formulated and agreed upon. ATTESTATION BY PHYSICIAN I have seen and examined the patient. I reviewed the documentation, medical decision making, and treatment plan as noted by the mid-level provider above. I agree with the findings and plan of care. MERI HOFFMAN MD, MIRTA L [facility] Sep 03, 2024 17:53
[2024-09-03] MEDS: ondanSETRON 4MG INJ IVP PRN (18:30)
[2024-09-04] VITALS (56 sets, daily range): BP systolic 117–174; BP diastolic 58–128; PULSE 42–83; RESP 14–46; TEMP 97.9–99.9; O2SAT 97–100
[2024-09-04 04:48] LABS: BASOPHILS # (AUTO) 0.01 K/uL (0.00-0.20); BASOPHILS % (AUTO) 0.1 % (0.0-5.0); HEMATOCRIT 37.7 % (42-54); IMMATURE GRANULOCYTE ABSOLUTE 0.14 K/uL (0-1); LYMPHOCYTES # (AUTO) 0.7 K/uL (1.0-4.8); LYMPHOCYTES % (AUTO) 7.9 % (21.0-51.0); MEAN CORPUSCULAR HGB CONC 32.4 g/dL (32.0-36.0); MEAN CORPUSCULAR VOLUME 92.6 fL (79-99); MONOCYTES # (AUTO) 0.7 K/uL (0.1-1.0); MONOCYTES % (AUTO) 7.4 % (3.0-13.0); NEUTROPHILS # (AUTO) 7.8 K/uL (1.8-7.7); NEUTROPHILS % (AUTO) 83.1 % (40.0-77.0); PLATELET COUNT (AUTO) 111 K/uL (130-400); RED BLOOD CELL COUNT(AUTO) 4.07 MIL/uL (4.50-6.20); WHITE BLOOD COUNT (AUTO) 9.4 K/uL (4.8-10.8)
[2024-09-04 04:54] LABS: CREATININE 0.3 mg/dL (0.5-1.3); POTASSIUM 3.8 mmol/L (3.5-5.1)
--- NOTE | 2024-09-04 10:02 | PN ---
This is a 59-year-old male with dysphagia and respiratory distress and need and trach and PEG Interval history: This 59-year-old male resting in his room Patient is awake alert Patient is able to respond all questions asked in written form FiO2 at 30% peep of five Physical exam General: Awake alert and oriented intubated Heart: Regular rate and rhythm} Lungs: Clear to auscultation no distress Abdomen: [Soft, nontender, nondistended Assessment : This is a 59-year-old male in need of trach and PEG Plan: Hold Lovenox at midnight NPO at midnight Possible trach and PEG to be performed tomorrow if unable to be performed tomorrow likely Thursday or Thursday by Dr. González Claudio updated in patient's status and surgical team to follow patient closely. Patient to continue with current ICU management Vitals/Labs Vital Signs Date Time Temp Pulse Resp B/P (MAP) Pulse Ox O2 Delivery O2 Flow Rate FiO2 09/04/24 09:30 57 30 09/04/24 06:37 28 09/04/24 06:00 156/97 98 Ventilator 09/04/24 04:00 98.2 Laboratory Tests 09/04/24 04:34 Medications Current Medications Albuterol 1 UDVIAL ONCE ONCE IH Last administered on 08/12/24at 00:23; Start 08/12/24 at 00:00; Stop 08/12/24 at 00:01; Status DC Methylprednisolone Sodium Succinate 125 mg ONCE ONCE IVP Last administered on 08/12/24at 00:03; Start 08/12/24 at 00:00; Stop 08/12/24 at 00:01; Status DC Methylprednisolone Sodium Succinate 125 mg STK-MED ONCE .ROUTE; Start 08/11/24 at 23:54; Stop 08/11/24 at 23:55; Status DC Ceftriaxone Sodium 1 gm ONCE ONCE IVPB Last administered on 08/12/24at 00:39; Start 08/12/24 at 00:30; Stop 08/12/24 at 00:31; Status DC Albuterol 1 UDVIAL ONCE ONCE IH Last administered on 08/12/24at 01:27; Start 08/12/24 at 01:00; Stop 08/12/24 at 01:01; Status DC Magnesium Sulfate 50 ml @ 0 mls/hr PROTOCOL IV Last administered on 08/12/24at 00:56; Start 08/12/24 at 01:00; Stop 08/12/24 at 02:33; Status DC Magnesium Sulfate 50 ml @ 0 mls/hr PROTOCOL IV; Start 08/12/24 at 01:00; Stop 08/12/24 at 02:33; Status DC Diazepam 5 mg ONCE ONCE IVP Last administered on 08/12/24at 00:53; Start 08/12/24 at 01:00; Stop 08/12/24 at 01:01; Status DC Azithromycin 250 ml @ 125 mls/hr ONCE ONCE IV Last administered on 08/12/24at 03:03; Start 08/12/24 at 01:30; Stop 08/12/24 at 03:29; Status DC Ketamine HCl 50 mg STK-MED ONCE .ROUTE; Start 08/12/24 at 01:30; Stop 08/12/24 at 01:31; Status DC Propofol 1,000 mg PROTOCOL PRN IV Last administered on 08/22/24at 01:04; Start 08/12/24 at 02:00; Stop 08/23/24 at 09:49; Status DC Propofol 100 ml @ As Directed STK-MED ONCE IV; Start 08/12/24 at 01:48; Stop 08/12/24 at 01:48; Status DC Sodium Chloride 2,414 ml @ 804.666 mls/hr ONCE ONCE IV Last administered on 08/12/24at 03:03; Start 08/12/24 at 02:30; Stop 08/12/24 at 05:29; Status DC Ketamine HCl 100 mg ONCE ONCE IV Last administered on 08/12/24at 01:43; Start 08/12/24 at 02:30; Stop 08/12/24 at 02:31; Status DC Pharmacy Profile Note 1 each ONCE MISC; Start 08/12/24 at 02:30; Stop 08/12/24 at 02:17; Status DC Rocuronium Index 50 mg ONCE ONCE IV Last administered on 08/12/24at 01:44; Start 08/12/24 at 02:30; Stop 08/12/24 at 02:31; Status DC Insulin Human Regular INSULIN SLIDING SCAL... Q6H6 SQ Last administered on 08/23/24at 06:14; Start 08/12/24 at 06:00; Stop 08/23/24 at 19:31; Status DC Dextrose 50 ml AD PRN IV; Start 08/12/24 at 02:30; Stop 09/11/24 at 02:29 Glucagon 1 mg AD PRN IM; Start 08/12/24 at 02:30; Stop 09/11/24 at 02:29 Potassium Chloride 100 ml @ 100 mls/hr AD PRN IV Last administered on 08/29/24at 14:03; Start 08/12/24 at 02:30; Stop 09/11/24 at 02:29 Magnesium Sulfate 50 ml @ 0 mls/hr PROTOCOL PRN IV; Start 08/12/24 at 02:30; Stop 09/11/24 at 02:29 Vancomycin HCl 1 each AD IV; Start 08/12/24 at 02:30; Stop 08/15/24 at 07:48; Status DC Pharmacy Profile Note 1 each ONCE MIS; Start 08/12/24 at 02:30; Stop 08/12/24 at 02:45; Status DC Cefepime HCl 2 gm Q12H IVPB Last administered on 08/16/24at 13:48; Start 08/12/24 at 02:30; Stop 08/16/24 at 18:04; Status DC Albuterol 1 udvial [id number] IH Last administered on 08/16/24at 06:46; Start 08/12/24 at 06:00; Stop 08/16/24 at 09:01; Status DC Albuterol Sulfate 2.5 mg [id number] PRN IH; Start 08/12/24 at 02:30; Stop 08/15/24 at 08:05; Status DC Enoxaparin Sodium 40 mg DAILY SQ Last administered on 08/12/24at 08:05; Start 08/12/24 at 09:00; Stop 08/12/24 at 08:32; Status DC Acetaminophen 650 mg Q6H PRN RC; Start 08/12/24 at 02:30; Stop 09/11/24 at 02:29 Lactulose 20 gm Q6H PRN PO; Start 08/12/24 at 02:30; Stop 09/11/24 at 02:29 Norepinephrine 250 ml @ 0 mls/hr AD PRN IV Last administered on 08/13/24at 15:16; Start 08/12/24 at 02:30; Stop 08/14/24 at 08:25; Status DC Vasopressin 20 units/Sodium Chloride 100 ml @ 0 mls/hr AD PRN IV; Start 08/12/24 at 02:30; Stop 08/23/24 at 21:05; Status DC Fentanyl Citrate 1000 mcg/Sodium Chloride 120 ml @ 0 mls/hr AD PRN IV; Start 08/12/24 at 02:30; Stop 08/12/24 at 02:52; Status DC Vancomycin HCl 500 ml @ 250 mls/hr ONCE ONCE IV Last administered on 08/12/24at 04:22; Start 08/12/24 at 03:00; Stop 08/12/24 at 04:59; Status DC Vancomycin HCl 250 ml @ 125 mls/hr Q12H IV Last administered on 08/15/24at 03:25; Start 08/12/24 at 15:00; Stop 08/15/24 at 07:48; Status DC Methylprednisolone Sodium Succinate 40 mg Q8H IVP Last administered on 08/12/24at 05:36; Start 08/12/24 at 06:00; Stop 08/12/24 at 08:28; Status DC Fentanyl Citrate 100 ml @ 0 mls/hr PROTOCOL IV; Start 08/12/24 at 03:00; Stop 08/12/24 at 04:20; Status DC Midazolam HCl 100 ml ONCE PRN IV; Start 08/12/24 at 03:00; Stop 08/12/24 at 02:59; Status DC Midazolam HCl 50 mg/Sodium Chloride 50 ml @ 0 mls/hr PROTOCOL IV; Start 08/12/24 at 03:00; Stop 08/12/24 at 03:11; Status DC Midazolam HCl 50 ml @ 0 mls/hr PROTOCOL IV Last administered on 08/13/24at 13:16; Start 08/12/24 at 03:30; Stop 08/14/24 at 08:25; Status DC Pharmacy Profile Note 1 each ONCE MISC; Start 08/12/24 at 04:30; Stop 08/12/24 at 04:18; Status DC Fentanyl/Sodium Chloride 250 ml @ 0 mls/hr PROTOCOL IV Last administered on 08/16/24at 17:11; Start 08/12/24 at 04:30; Stop 08/17/24 at 04:29; Status DC Pharmacy Profile Note 1 each AD MISC; Start 08/12/24 at 06:00; Stop 08/12/24 at 05:36; Status DC Chlorhexidine Gluconate 15 ml TID MM Last administered on 08/23/24at 08:29; Start 08/12/24 at 09:00; Stop 08/23/24 at 13:22; Status DC Artificial Tears 1 DROP OR AD Q8H OU Last administered on 08/23/24at 08:30; Start 08/12/24 at 08:00; Stop 08/23/24 at 08:36; Status DC Calcium Gluconate 1 gm PROTOCOL IVPB Last administered on 08/12/24at 10:01; Start 08/12/24 at 08:30; Stop 09/11/24 at 08:29 Sodium Chloride 50 ml AD IV; Start 08/12/24 at 08:30; Stop 09/11/24 at 08:29 Midodrine 10 mg TID PO Last administered on 08/13/24at 20:51; Start 08/12/24 at 09:00; Stop 08/14/24 at 08:37; Status DC Methylprednisolone Sodium Succinate 40 mg Q12H IVP Last administered on 08/20/24at 06:08; Start 08/12/24 at 18:00; Stop 08/20/24 at 15:58; Status DC Enoxaparin Sodium 40 mg BID SQ Last administered on 08/24/24at 20:49; Start 08/12/24 at 09:00; Stop 08/25/24 at 07:22; Status DC Pantoprazole Sodium 40 mg DAILY IVP Last administered on 09/04/24at 08:43; Start 08/12/24 at 09:00; Stop 09/11/24 at 08:59 Acetaminophen 650 mg Q4H PRN PEG Last administered on 09/04/24at 05:42; Start 08/13/24 at 06:00; Stop 09/12/24 at 05:59 Furosemide 40 mg ONCE ONCE IV Last administered on 08/13/24at 09:26; Start 08/13/24 at 09:30; Stop 08/13/24 at 09:31; Status DC Aspirin 81 mg DAILY PO Last administered on 09/04/24at 08:43; Start 08/14/24 at 09:00; Stop 09/13/24 at 08:59 Atorvastatin Calcium 10 mg DAILY PO Last administered on 08/14/24at 08:47; Start 08/14/24 at 09:00; Stop 08/15/24 at 06:20; Status DC Montelukast Sodium 10 mg DAILY PO Last administered on 09/04/24at 08:46; Start 08/14/24 at 09:00; Stop 09/13/24 at 08:59 Dexmedetomidine/ Sodium Chloride 400 mcg PROTOCOL IV Last administered on 08/14/24at 15:18; Start 08/13/24 at 09:30; Stop 08/15/24 at 08:16; Status DC Furosemide 40 mg DAILY PO; Start 08/14/24 at 09:00; Stop 08/14/24 at 08:26; Status DC Metronidazole/ Sodium Chloride 100 ml @ 100 mls/hr Q8H6 IVPB Last administered on 08/15/24at 06:11; Start 08/13/24 at 14:00; Stop 08/15/24 at 07:46; Status DC Oseltamivir Phosphate 75 mg BID PO Last administered on 08/18/24at 07:55; Start 08/13/24 at 21:00; Stop 08/18/24 at 20:59; Status DC Nystatin 1 appl BID TP Last administered on 08/14/24at 20:22; Start 08/13/24 at 21:00; Stop 08/15/24 at 07:06; Status DC Furosemide 20 mg ONCE ONCE IV Last administered on 08/14/24at 08:47; Start 08/14/24 at 08:00; Stop 08/14/24 at 08:01; Status DC Diazepam 5 mg Q8H PO Last administered on 08/15/24at 00:52; Start 08/14/24 at 08:00; Stop 08/15/24 at 07:15; Status DC Dopamine HCl/ Dextrose 250 ml @ 0 mls/hr PROTOCOL PRN IV; Start 08/14/24 at 08:30; Stop 08/16/24 at 00:43; Status DC Furosemide 20 mg Q8H IV Last administered on 08/15/24at 06:11; Start 08/14/24 at 14:00; Stop 08/15/24 at 07:50; Status DC Midodrine 5 mg TID PO Last administered on 08/14/24at 20:26; Start 08/14/24 at 09:00; Stop 08/15/24 at 07:45; Status DC Atorvastatin Calcium 10 mg HS PO Last administered on 09/03/24at 20:55; Start 08/15/24 at 21:00; Stop 09/13/24 at 08:59 Nystatin 1 APPL BID TP Last administered on 09/04/24at 08:46; Start 08/15/24 at 09:00; Stop 09/12/24 at 20:59 Fluconazole/ Sodium Chloride 100 ml @ 100 mls/hr DAILY IV Last administered on 08/15/24at 09:16; Start 08/15/24 at 09:00; Stop 08/16/24 at 07:23; Status DC Furosemide 20 mg Q24H IV Last administered on 08/16/24at 05:47; Start 08/16/24 at 06:00; Stop 08/16/24 at 08:38; Status DC Acetylcysteine 600mg = 3ml [id number] IH Last administered on 08/16/24at 06:46; Start 08/15/24 at 12:00; Stop 08/16/24 at 10:26; Status DC Diazepam 2 mg Q8H PO Last administered on 08/15/24at 09:17; Start 08/15/24 at 08:30; Stop 08/16/24 at 09:04; Status DC Diazepam 4 mg Q8H PRN PO Last administered on 08/15/24at 14:17; Start 08/15/24 at 08:30; Stop 08/16/24 at 09:04; Status DC Polyethylene Glycol 17 gm DAILY PO Last administered on 09/04/24at 08:43; Start 08/15/24 at 09:00; Stop 09/14/24 at 08:59 Rocuronium Index 50 mg STK-MED ONCE IV; Start 08/12/24 at 15:03; Stop 08/15/24 at 15:03; Status DC Dopamine HCl/ Dextrose 250 ml @ As Directed STK-MED ONCE IV; Start 08/16/24 at 00:28; Stop 08/16/24 at 00:29; Status DC Dopamine HCl/ Dextrose 250 ml @ 0 mls/hr AD PRN IV Last administered on 08/20/24at 22:44; Start 08/16/24 at 01:00; Stop 08/23/24 at 09:49; Status DC Furosemide 20 mg Q8H5 IV Last administered on 08/16/24at 09:15; Start 08/16/24 at 09:00; Stop 08/16/24 at 12:52; Status DC Albuterol 1 udvial Q4H4 IH; Start 08/16/24 at 12:00; Stop 08/16/24 at 10:19; Status DC Albuterol 1 UDVIAL [id number] IH Last administered on 08/23/24at 07:03; Start 08/16/24 at 14:00; Stop 08/23/24 at 08:36; Status DC Albuterol 1 udvial STK-MED ONCE IH; Start 08/16/24 at 10:20; Stop 08/16/24 at 10:20; Status DC Acetylcysteine 600mg = 3ml [id number] IH Last administered on 08/19/24at 14:15; Start 08/16/24 at 14:00; Stop 08/19/24 at 15:27; Status DC Furosemide 20 mg Q8H IV Last administered on 08/20/24at 09:44; Start 08/16/24 at 17:00; Stop 08/20/24 at 17:27; Status DC Cefazolin Sodium 2 gm Q8H IVPB Last administered on 08/20/24at 10:21; Start 08/16/24 at 18:00; Stop 08/20/24 at 15:56; Status DC Potassium Chloride 20 meq AD PRN PO Last administered on 08/19/24at 08:15; Start 08/17/24 at 08:00; Stop 09/16/24 at 07:59 Potassium Chloride 20 meq AD PRN PO; Start 08/17/24 at 08:00; Stop 09/16/24 at 07:59 Fentanyl/Sodium Chloride 250 ml @ 0.1 mls/hr PROTOCOL IV Last administered on 08/19/24at 06:13; Start 08/17/24 at 08:00; Stop 08/19/24 at 15:27; Status DC Lactulose 20 gm DAILY PO Last administered on 08/20/24at 09:43; Start 08/17/24 at 12:00; Stop 08/20/24 at 17:27; Status DC Acetylcysteine 800 mg STK-MED ONCE .ROUTE Last administered on 08/18/24at 06:44; Start 08/18/24 at 06:33; Stop 08/18/24 at 06:33; Status DC Albuterol 1 udvial STK-MED ONCE IH; Start 08/18/24 at 06:33; Stop 08/18/24 at 06:33; Status DC Albuterol 1 udvial STK-MED ONCE IH; Start 08/18/24 at 09:14; Stop 08/18/24 at 09:14; Status DC Pharmacy Profile Note 1 each AD MISC; Start 08/19/24 at 10:00; Stop 08/19/24 at 09:42; Status DC Insulin Glargine 10 units BID@0730,2100 SQ Last administered on 08/23/24at 06:17; Start 08/19/24 at 21:00; Stop 08/23/24 at 09:35; Status DC Potassium Bicarbonate 25 meq BID NG Last administered on 08/22/24at 09:06; Start 08/19/24 at 21:00; Stop 08/22/24 at 15:51; Status DC Dexmedetomidine/ Sodium Chloride 400 mcg PROTOCOL IV Last administered on 08/23/24at 04:32; Start 08/19/24 at 15:30; Stop 08/23/24 at 09:49; Status DC Phenylephrine HCl 50 mg/Sodium Chloride 250 ml @ 0 mls/hr PROTOCOL PRN IV; Start 08/20/24 at 15:30; Stop 08/23/24 at 09:49; Status DC Methylprednisolone Sodium Succinate 60 mg Q6H6 IVP Last administered on 08/23/24at 06:07; Start 08/20/24 at 18:00; Stop 08/23/24 at 08:36; Status DC Furosemide 20 mg Q12H IV Last administered on 08/23/24at 08:29; Start 08/20/24 at 21:00; Stop 08/23/24 at 09:29; Status DC Multi-Ingredient Ointment USE DIRECTED TID TP; Start 08/22/24 at 21:00; Stop 08/22/24 at 17:33; Status DC Hydroxyzine HCl 25 mg TID PRN PO; Start 08/23/24 at 00:00; Stop 08/23/24 at 21:05; Status DC Diazepam 5 mg STK-MED ONCE .ROUTE; Start 08/23/24 at 08:28; Stop 08/23/24 at 08:28; Status DC Diazepam 10 mg Q8H PRN PO Last administered on 09/01/24at 09:50; Start 08/23/24 at 08:30; Stop 09/22/24 at 08:29 Albuterol 1 UDVIAL Q8H IH Last administered on 08/23/24at 18:41; Start 08/23/24 at 14:00; Stop 08/23/24 at 21:05; Status DC Methylprednisolone Sodium Succinate 40 mg Q12H IVP Last administered on 08/29/24at 05:50; Start 08/23/24 at 18:00; Stop 08/29/24 at 09:02; Status DC Furosemide 40 mg DAILY PO; Start 08/24/24 at 09:00; Stop 08/23/24 at 09:44; Status DC Lactulose 20 gm ONCE ONCE PO Last administered on 08/23/24at 13:39; Start 08/23/24 at 09:30; Stop 08/23/24 at 09:32; Status DC Insulin Glargine 15 units BID@0730,2100 SQ Last administered on 08/23/24at 20:46; Start 08/23/24 at 21:00; Stop 08/23/24 at 21:05; Status DC Metoclopramide HCl 5 mg Q6D PRN IV; Start 08/23/24 at 17:30; Stop 09/22/24 at 17:29; Status Cancel Insulin Human Regular INSULIN SLIDING SCAL... ACHS SQ Last administered on 08/23/24at 20:47; Start 08/23/24 at 21:00; Stop 08/23/24 at 21:05; Status DC Insulin Glargine 18 units BID@0730,2100 SQ Last administered on 09/03/24at 06:17; Start 08/23/24 at 21:00; Stop 09/22/24 at 20:59 Albuterol 1 UDVIAL Q8H PRN IH Last administered on 08/24/24at 19:15; Start 08/23/24 at 21:00; Stop 08/25/24 at 07:25; Status DC Insulin Human Regular INSULIN SLIDING SCAL... ACHS SQ Last administered on 09/03/24at 12:26; Start 08/23/24 at 21:00; Stop 09/22/24 at 20:59 Ceftriaxone Sodium 1 gm Q24H IVPB Last administered on 08/25/24at 16:09; Start 08/24/24 at 15:00; Stop 08/25/24 at 21:12; Status DC Metoprolol Tartrate 2.5 mg ONCE ONCE IV Last administered on 08/25/24at 03:21; Start 08/25/24 at 03:30; Stop 08/25/24 at 03:31; Status DC Metoprolol Tartrate 2.5 mg Q6H PRN IV; Start 08/25/24 at 04:00; Stop 09/24/24 at 03:59 Metoprolol Tartrate 5 mg ONCE ONCE IV Last administered on 08/25/24at 05:30; Start 08/25/24 at 05:30; Stop 08/25/24 at 05:31; Status DC Enoxaparin Sodium 100 mg BID SQ Last administered on 08/28/24at 21:09; Start 08/25/24 at 09:00; Stop 08/29/24 at 09:19; Status DC Metoprolol Tartrate 25 mg BID PO Last administered on 08/28/24at 08:02; Start 08/25/24 at 07:30; Stop 08/29/24 at 08:58; Status DC Ipratropium Index 0.5 MG [id number] IH Last administered on 09/04/24at 06:36; Start 08/25/24 at 12:00; Stop 09/24/24 at 11:59 Ipratropium Index 0.5 mg STK-MED ONCE IH; Start 08/25/24 at 10:48; Stop 08/25/24 at 10:49; Status DC Cefepime HCl 2 gm Q12H IVPB Last administered on 09/04/24at 08:43; Start 08/25/24 at 21:30; Stop 09/04/24 at 21:29 Doxycycline Hyclate 250 ml @ 125 mls/hr Q12H IV Last administered on 09/03/24at 20:58; Start 08/25/24 at 21:30; Stop 09/04/24 at 21:29 Tramadol HCl 50 mg Q6H PRN PO Last administered on 08/28/24at 21:09; Start 08/26/24 at 12:00; Stop 08/31/24 at 11:59; Status DC Fentanyl Citrate 2500 mcg/Sodium Chloride 250 ml @ 0 mls/hr AD PRN IV; Start 08/29/24 at 06:00; Stop 08/29/24 at 05:46; Status DC Norepinephrine 250 ml @ 0 mls/hr AD PRN IV; Start 08/29/24 at 06:00; Stop 08/29/24 at 06:53; Status DC Midazolam HCl 100 ml PROTOCOL PRN IV Last administered on 09/01/24at 04:54; Start 08/29/24 at 06:00; Stop 09/28/24 at 05:59 Fentanyl/Sodium Chloride 250 ml @ 0 mls/hr AD PRN IV Last administered on 09/01/24at 01:00; Start 08/29/24 at 06:00; Stop 09/03/24 at 05:59; Status DC Norepinephrine Bitartrate 250 ml @ As Directed STK-MED ONCE IV Last administered on 08/29/24at 06:45; Start 08/29/24 at 06:39; Stop 08/29/24 at 06:39; Status DC Norepinephrine Bitartrate central line only ... PROTOCOL IV; Start 08/29/24 at 07:00; Stop 09/28/24 at 06:59 Acetazolamide Sodium 250 mg BID IV; Start 08/29/24 at 09:00; Stop 08/29/24 at 10:28; Status DC Midodrine 5 mg TID PO Last administered on 09/03/24at 20:55; Start 08/29/24 at 09:00; Stop 09/28/24 at 08:59 Methylprednisolone Sodium Succinate 40 mg Q8H IVP Last administered on 09/04/24at 06:47; Start 08/29/24 at 14:00; Stop 09/19/24 at 17:59 Enoxaparin Sodium 40 mg BID SQ Last administered on 09/04/24at 08:46; Start 08/29/24 at 21:00; Stop 09/28/24 at 20:59 Rocuronium Index 50 mg STK-MED ONCE IV; Start 08/12/24 at 08:36; Stop 08/30/24 at 08:36; Status DC Etomidate 20 mg STK-MED ONCE IVP; Start 08/12/24 at 08:36; Stop 08/30/24 at 08:36; Status DC Ondansetron HCl 4 mg Q6H PRN IVP Last administered on 09/04/24at 05:41; Start 09/03/24 at 18:30; Stop 10/03/24 at 18:29 UMA SOLIS Jr. Sep 04, 2024 10:02
--- NOTE | 2024-09-04 10:12 | PN ---
[facility] PROGRESS NOTE Date Patient Seen: Sep 04, 2024 Time of Visit: 10:12 Supervising Physician: Dr. Janes Corea Supervising Physician: Dr. Joel Soto Primary Care Physician: [Dr. Zafar Harris ] Outpatient Specialists: [ ] Inpatient Consults: PROBLEM LIST: Acute on chronic hypoxemic and hypercapnic respiratory reintubated 08/29/24, Failed weaning trials. Severe COPD/asthma/emphysema recurrent exacerbation-POA Septic Shock POA requiring PRESSORS, resolved 2/2 Gram-positive cocci bacteremia, POA, on repeat neg BC (likely contamination) Acute on chronic hypoxic hypercapnic respiratory failure requiring vent support- POA Intubated POA, extubated 08/22/24 Elevated D-Dimer Neg DVT, Well's score for PE 4.5 (moderate risk) pending CTA to r/o PE Viral community-acquired pneumonia + Influenza A W/ superimposed bacterial Pneumonia -POA 2nd to MSSA Hyponatremia Hypochloremia-POA Hypokalemia corrected Primary hypertension Diabetes mellitus HLD Chronic nicotine disorder Obstructive sleep apnea Polysubstance abuse with tobacco, cocaine and alcohol Fatty Liver Morbid obese, BMI 39.9 INTERVAL HISTORY: 08/29/24- overnight patient became lethargic and retaining CO2 patient had to be emergently intubated due to failing BiPAP and pt refusing to keep Bipap on over night. . Patient was transferred to ICU for acute hypoxemic and hypercapnic. Initial ABG with pH of 7.20, pCO2 of 122, PO2 114. Now ABG shows a pH of 7.53, pCO2 of 49, PO2 of 68, bicarb of 40.4 with ventilator settings of assist control volume control FiO2 of 60% and PEEP of eight, respiratory rate of 20 and tidal volume of 500. WBCs are normal, H&H similar to yesterday platelet count is 127 K. chemistries sodium is 150 potassium is 3.5 carbon dioxide of 43 BUN of 20 creatinine of 0.4 glucose of 186 mg/dL. On chest x-ray mild bilateral pulmonary infiltrates are seen may be related to mild pulmonary vascular congestion with possible superimposed pneumonitis. We will continue mechanical ventilation support. Patient has previous multiple visits to the hospital with intubation. He has failed extubation and I spoke to his brother who is his POA and discu and discussed with him the possibility of tracheostomy and PEG tube placement due to advanced COPD. As per brother he is going to talk it over with more family and think about the decision to go through with PEG and trach. Fow now we will optimize oxygenation and when we have and FiO2 requirement of less than 50% and a PEEP of 5-6, then we may consult general surgery for trach and PEG if in agreement with family/pt. 08/30/2024: At the time of my evaluation, the patient is lying in bed. The blood pressure trend is soft and heart rate in the 50s with respiratory rates in the 20s. He continues intubated and mechanically vented. ABG today showed a pH of 7.55, pCO2 39, PO2 57.6 NaHCO3 of 33.3. The patient remains on ACVC mode FiO2 30% tidal volume of 500 and a PEEP of 8. Vital signs showed soft blood pressure readings 94/55, heart rate 53 and a respiratory rate of 23. I&Os showed a total voided urine of 1200 with a positive balance of 847.0. Laboratory data showed a WBC of 8.5, H&H 11.4/37.2 , MCV 98.2 and a MCH of 30.1 and a platelet count of 122. Chemistry panel showed no electrolyte derangement. CO2 of 38, BUN 22, creatinine of 0.5 and a GFR of 116. No imaging was obtained today. 08/31/2024: At the time of my evaluation, the patient is lying in bed. He remains intubated currently on CPAP mode in attempt to wean off the vent. ABGs today showed pH of 7.47, pCO2 41, PO2 65.5, HC03 of 28.9. All sedatives have been turned off. Vital signs show normotension, but the patient is tachypneic in the 40s. Laboratory data today showed no major derangements on CBC and Chemistry panel. Urine total [id number] out with a + balance of 145.5. No new microbiology data for review. Chest x-ray still showing pulmonary infiltrates and vascular congestion. No acute events reported overnight. 09/01/2024: At the time of my evaluation, the patient is lying in bed. The staff nurse reports no acute events overnight. The patient was placed on CPAP mode 5/5, 30% pulling volumes of 500. Vital signs are currently showing blood pressure of 133/97, pulse of 54 and a respiratory rate of 22 with a pulse oximeter of 96%. Laboratory data showed no major derangement. No microbiology data for review today. No imaging for review today. No new complaint. 09/02/2024: At the time of my evaluation, the patient is lying in bed. He remains intubated and on mechanical ventilator support. Vital signs today are generally stable. I and O showing a urine total output of 1400 mL and a positive balance of 44. Laboratory data today showed a WBC of 9.4, with a neutrophil count of 88.4 % and a lymphocyte count of 5.4% hemoglobin of 11.0, hematocrit of 35.0 and a platelet count of 102. Chemistry panel showed a drop in sodium to 131, potassium of 4.0, chloride of 99, CO2 of 28, BUN of 18 and a creatinine of 0.4. No imaging for review today. No new complaint. 09/03/2024: At the time of my evaluation, the patient was lying in bed. He is awake, alert and oriented. Patient is able to follow commands, but is not verbally interactive as he remains intubated. Patient currently on AC mode with rate of 16, peep of 5, tidal volume 500 and FiO2 30%. Oxygen saturation is in the high 90s. He is currently on monitor, normotensive, not on any pressors, map of 99. Heart rate is maintained in the 80s. He currently denies any chest pain. There is no report of nausea, vomiting or diarrhea. On I's and O's show a intake of 2360.0 , a output 2300 and a negative balance of + 60. Functional licona, the patient is functional. On review of labs today, there was an increase in WBC to 11.6. Chemistry panel showed no major concern. No microbiology, pathology for review. No repeat chest x-ray for review. The staff nurse reports no acute events overnight. No other complaint. 09/04/2024: At the time of my evaluation, the patient was lying in bed. He is awake, alert and oriented. Patient is able to follow commands, but is not verbally interactive as he remains intubated. Patient currently on AC mode with rate of 16, peep of 5, tidal volume 500 and FiO2 30%. Oxygen saturation is in the high 90s. He is currently on monitor, normotensive, not on any pressors, map of 99. Heart rate is maintained in the 80s. He currently denies any chest pain. There is no report of nausea, vomiting or diarrhea. On I's and O's show a intake of 1677.0 , a output 1200 and a balance of + 477. Functional licona, the patient is functional. On review of labs today, there was no concern on WBCs. Chemistry panel showed no major concern. No microbiology, pathology for review. No repeat chest x-ray for review. The staff nurse reports no acute events overnight. No other complaint. REVIEW OF SYSTEMS: Unable to perform due to patient intubated and sedated. PHYSICAL EXAM: GENERAL: Sedated intubated. HEENT: Sclera non icteric, moist mucosa NECK: Short neck, no JVD, trachea midline LUNGS: Diminished to all lobes bilaterally,. No wheezes HEART: Regular rate and rhythm. Normal S1 and S2, without murmurs ABD: Abdomen obese firm, nontender. Bowel sounds present EXT: No clubbing cyanosis or edema NEURO: Sedated and intubated. No focal weakness. Vital Signs (last 8hr) Date Time Temp Pulse Resp B/P (MAP) Pulse Ox O2 Delivery O2 Flow Rate FiO2 09/04/24 09:30 57 30 09/04/24 06:39 49 30 09/04/24 06:37 53 28 09/04/24 06:00 70 30 156/97 98 Ventilator 30 09/04/24 05:30 48 16 145/71 100 Ventilator 30 09/04/24 05:00 71 18 160/128 99 Ventilator 30 09/04/24 04:30 42 14 131/58 98 Ventilator 30 09/04/24 04:00 30 09/04/24 04:00 99 Ventilator+ 30 09/04/24 04:00 98.2 47 18 141/76 98 Ventilator 30 09/04/24 03:38 56 30 09/04/24 03:30 48 16 140/74 99 Ventilator 30 09/04/24 03:00 49 25 147/79 98 Ventilator 30 09/04/24 02:30 54 33 156/79 97 Ventilator 30 LABS: Hematology Labs: Test 09/04/24 04:34 Range/Units White Blood Count 9.4 4.8-10.8 K/uL Red Blood Count 4.07 L 4.50-6.20 MIL/uL Hemoglobin 12.2 L 14.0-18.0 g/dL Hematocrit 37.7 L 42-54 % Mean Corpuscular Volume 92.6 79-99 fL Mean Corpuscular Hemoglobin 30.0 27.0-33.0 pg Mean Corpuscular Hemoglobin Concent 32.4 32.0-36.0 g/dL Red Cell Distribution Width 13.0 11.0-15.5 % Platelet Count 111 L 130-400 K/uL Mean Platelet Volume 10.3 7.5-10.5 fL Immature Granulocyte % (Auto) 1.5 H 0-1 % Neutrophils (%) (Auto) 83.1 H 40.0-77.0 % Lymphocytes (%) (Auto) 7.9 L 21.0-51.0 % Monocytes (%) (Auto) 7.4 3.0-13.0 % Eosinophils (%) (Auto) 0.0 0.0-8.0 % Basophils (%) (Auto) 0.1 0.0-5.0 % Neutrophils # (Auto) 7.8 H 1.8-7.7 K/uL Lymphocytes # (Auto) 0.7 L 1.0-4.8 K/uL Monocytes # (Auto) 0.7 0.1-1.0 K/uL Eosinophils # (Auto) 0.00 0.00-0.70 K/uL Basophils # (Auto) 0.01 0.00-0.20 K/uL Absolute Immature Granulocyte (auto 0.14 0-1 K/uL Nucleated Red Blood Cells 0.0 0.0-0.19 % Chemistry Labs: Test 09/04/24 04:34 09/03/24 20:11 Range/Units Sodium Level 141 136-145 mmol/L Potassium Level 3.8 3.5-5.1 mmol/L Chloride Level 107 101-111 mmol/L Carbon Dioxide Level 29 21-32 mmol/L Blood Urea Nitrogen 20 H 7-18 mg/dL Creatinine 0.3 L 0.5-1.3 mg/dL Glomerular Filtration Rate Calc 135 >90 mL/min Random Glucose 94 70-105 mg/dL Total Calcium 8.5 8.5-10.1 mg/dL Magnesium Level 2.00 1.80-2.40 mg/dL Whole Blood Glucose 109 70-110 MG/DL DIAGNOSTICS / RADIOLOGY RESULTS: [ ] PLAN Maintain O2 sats above 92% Continue duo Atrovent q.6 hours p.r.n. BiPAP at HS and p.r.n. CTA chest to rule out PE Continue GI and DVT prophylaxis PT to eval and treat Wean o2 as permitted. ABG in AM Steroids Solu-medrol 40mg IV q 8 hrs. Continue IV ABX with Cefepim and Doxy -Arrange outpatient pulmonology referral for sleep study, PFT and follow-up management upon discharge sedation vacation q am to assess mental status/. Fow now he is on fentanyl and versed , mynor off versed first . 08/30/2024: For now, we are going to continue current management for the patient. We are going to to initiate spontaneous breathing trial in a.m. attempting to extubate the patient soon. He is going to continue on steroid therapy, empiric antibiotic therapy and bronchodilator therapy. I am going to request a chest x-ray in a.m.. We will also request an ABG prior to starting the spontaneous breathing trials. We will monitor the patient's progress and response to management. We will continue to provide general supportive care, GI and DVT prophylaxis. Further orders per attending MD and hospital course. 08/31/2024: For now, we are going to continue current management for the patient. The plan is to wean off the vent. We will continue spontaneous breathing trials and see of the patient will tolerate. We are going to continue with steroid therapy, Solu-Medrol 40 mg q.8h IV. He will continue on antibiotic coverage covered currently with cefepime and doxycycline. We will monitor the patient's progress and response to management. We will continue to provide general supportive care, GI and DVT prophylaxis. Further orders per attending MD and hospital course. 09/01/2024: For now, going to continue current management for the patient. We will continue on CPAP trial in the possibility that we may be able to extubate the patient. I am going to request a repeat ABG to evaluate gas exchange. Of note, if we are unable to extubate the patient, he is nearing the possibility of a trach and PEG creation due to extended course of intubation with multiple failed weaning trials. Versed and fentanyl for sedation. We will continue to monitor the patient's progress and response to management. Continue to provide general supportive care, GI and DVT prophylaxis. Further orders per attending MD and hospital course. 09/02/2024: For now, going to continue current management for the patient. Considering the patient has failed multiple weaning trials, I have discussed with the patient and family member present at the bedside regarding the plans for possible trach and PEG creation. Patient has agreed to proceed for which we are going to consult the General surgery team. In the meantime, the patient will remain intubated and on mechanical ventilator support. We will keep an eye on the electrolyte changes that showed a significant drop of sodium and chloride count two on today's labs. We will monitor the patient's progress and response to management. Further orders per attending MD and hospital course. 09/03/2024: For now, we are going to continue current management for the patient. He will continue on mechanical ventilator support. Considering the patient is not able to be weaned off the events after multiple attempts, general surgery was consulted and the plan is for trach and PEG creation. We are going to continue to monitor the vital signs and heart rhythm. We will treat any arrhythmias if needed. We will monitor for any nausea, vomiting or diarrhea events. We will repeat surveillance labs in the morning. Nursing staff to continue assisting the patient functionally in bed. Patient will need aggressive PT for rehabilitation. We will continue to provide general supportive care, GI and DVT prophylaxis. Further orders per attending MD and hospital course. 09/04/2024: For now, we are going to continue current management for the patient. He will continue on mechanical ventilator support. Considering the patient is not able to be weaned off the events after multiple attempts, general surgery was consulted and the plan is for trach and PEG creation. This will possibly occur as early as tomorrow, but we will await confirmation by General surgery. We are going to continue to monitor the vital signs and heart rhythm. We will treat any arrhythmias if needed. We will monitor for any nausea, vomiting or diarrhea events. We will repeat surveillance labs in the morning. Nursing staff to continue assisting the patient functionally in bed. Patient will need aggressive PT for rehabilitation. We will continue to provide general supportive care, GI and DVT prophylaxis. Further orders per attending MD and hospital course. NEURO: Minimize central acting medications as possible. Fall Precautions. Well lighted room through the day and minimize interruptions through the night to prevent acute delirium. PULMONARY: Supplemental 02 as needed Titrate Fio2 to keep Spo2 > or = 90% DuoNebs and CPT as needed Ventilator settings ACVC: Tv 500, RR 20, FIO2 of 60% and peep of 8 adjust as needed per ABG's IS hourly while awake for pulmonary hygiene went off vent CARDIOVASCULAR: Follow hemodynamics. Titrate vasopressor to keep MAP >65 or systolic blood pressure >95mmHg if needed. Drips: None LINES: PICC line GI & NUTRITION: Continue nutritional support Aspirations precautions Prokinetic agents and laxatives as needed No bowel movements documented. Mechanical soft diet KIDNEYS & ELECTROLYTES: Strict monitoring of intake and output Daily weights Avoid nephrotoxic agents Monitor electrolytes and replace as needed Goal urine output of 30mL/hr or 0.5mL/kg/hr ENDOCRINE: Maintain blood glucose between 100-180 at all times. Insulin sliding scale for blood glucose management INFECTIOUS DISEASE: Trend temperature. Patricio-culture if febrile. Currently afebrile Micro: Blood cultures negative Urine culture negative Respiratory cultures Sputum grew MSSA, patient completed antibiotic course Influenza B negative (patient is positive for influenza A) COVID-19 negative Antibiotics: Cefepime and doxycycline HEMATOLOGY & COAGULATION: Monitor H&H. Keep Hgb > 7 Transfuse 1 unit of PRBC for Hgb < 7 Transfuse 1 pack of platelets of platelets < 20, 000 Watch for any signs and symptoms of bleeding SKIN: Pressure ulcer prevention per facility protocol Rehab: PT/OT out of bed to chair. Prophylaxis: GI: Protonix 30 mg IV push bid DVT: Lovenox Code Status: Full Resuscitation Disposition: ICU Other: Total patient care time exceeds 45 minutes excluding all procedures. Case was discussed and seen with my supervising physician. The above plan was formulated and agreed upon. MONAE FRANCIS NP Sep 04, 2024 10:12
[2024-09-05] VITALS (50 sets, daily range): BP systolic 92–163; BP diastolic 47–117; PULSE 41–68; RESP 12–150; TEMP 98–98.1; O2SAT 98–100
--- NOTE | 2024-09-05 05:25 | PN ---
INFECTIOUS DISEASE FOLLOWUP NOTE DATE OF SERVICE: 09/04/2024 SUBJECTIVE: The patient has no fever, no chills. No nausea or vomiting. No neck pain or neck swelling. No rashes or itchiness. No depression. No suicidal ideation. Remained intubated on ventilator support. Fully awake. The patient is pending PEG placement. PHYSICAL EXAMINATION: VITAL SIGNS: Temperature today 97.5. EYES: No icterus. Pupils equal and reactive. HENT: No oral thrush seen. Moist oral mucosa. Orally intubated. NECK: Supple, no JVD or thyromegaly. LUNGS: Crackles bilaterally, no rhonchi. CARDIOVASCULAR: S1, S2 regular. No murmur heard. ABDOMEN: Full, soft. Bowel sound is present. CENTRAL NERVOUS SYSTEM: Awake, alert. No new focal deficits. SKIN: No rashes, no itchiness. LYMPHATIC: No peripheral lymphadenopathy. BACK: No deformity, no pressure ulcer. HEMATOLOGIC: No bleeding or peripheral lesions seen. MUSCULOSKELETAL: No joint swelling, erythema or tenderness. ASSESSMENT: A 59-year-old male admitted with cough, shortness of breath. CURRENT PROBLEMS: * Multifocal pneumonia. * Acute on chronic hypoxic hypercapnic respiratory failure. * Diabetes mellitus. * Hypertension. * . * Cocaine abuse. * Medical noncompliance. * History of chronic obstructive pulmonary disease. PLAN: * . * Continue ventilatory support. * Continue cefepime. * Continue doxycycline. * Continue DVT prophylaxis. * Monitor electrolytes and correct as needed. * . TID: [id number] RECEIPT: [id number]
--- NOTE | 2024-09-05 10:30 | PN ---
[facility] PROGRESS NOTE Date Patient Seen: Sep 05, 2024 Time of Visit: 10:30 Supervising Physician: Dr. Dasilva Supervising Physician: Dr. Joel Soto Primary Care Physician: [Dr. Zaafr Harris ] Outpatient Specialists: [ ] Inpatient Consults: PROBLEM LIST: Acute on chronic hypoxemic and hypercapnic respiratory reintubated 08/29/24, Failed weaning trials. Severe COPD/asthma/emphysema recurrent exacerbation-POA Septic Shock POA requiring PRESSORS, resolved 2/2 Gram-positive cocci bacteremia, POA, on repeat neg BC (likely contamination) Acute on chronic hypoxic hypercapnic respiratory failure requiring vent support- POA Intubated POA, extubated 08/22/24 Elevated D-Dimer Neg DVT, Well's score for PE 4.5 (moderate risk) pending CTA to r/o PE Viral community-acquired pneumonia + Influenza A W/ superimposed bacterial Pneumonia -POA 2nd to MSSA Hyponatremia Hypochloremia-POA Hypokalemia corrected Primary hypertension Diabetes mellitus HLD Chronic nicotine disorder Obstructive sleep apnea Polysubstance abuse with tobacco, cocaine and alcohol Fatty Liver Morbid obese, BMI 39.9 INTERVAL HISTORY: 08/29/24- overnight patient became lethargic and retaining CO2 patient had to be emergently intubated due to failing BiPAP and pt refusing to keep Bipap on over night. . Patient was transferred to ICU for acute hypoxemic and hypercapnic. Initial ABG with pH of 7.20, pCO2 of 122, PO2 114. Now ABG shows a pH of 7.53, pCO2 of 49, PO2 of 68, bicarb of 40.4 with ventilator settings of assist control volume control FiO2 of 60% and PEEP of eight, respiratory rate of 20 and tidal volume of 500. WBCs are normal, H&H similar to yesterday platelet count is 127 K. chemistries sodium is 150 potassium is 3.5 carbon dioxide of 43 BUN of 20 creatinine of 0.4 glucose of 186 mg/dL. On chest x-ray mild bilateral pulmonary infiltrates are seen may be related to mild pulmonary vascular congestion with possible superimposed pneumonitis. We will continue mechanical ventilation support. Patient has previous multiple visits to the hospital with intubation. He has failed extubation and I spoke to his brother who is his POA and discu and discussed with him the possibility of tracheostomy and PEG tube placement due to advanced COPD. As per brother he is going to talk it over with more family and think about the decision to go through with PEG and trach. Fow now we will optimize oxygenation and when we have and FiO2 requirement of less than 50% and a PEEP of 5-6, then we may consult general surgery for trach and PEG if in agreement with family/pt. 08/30/2024: At the time of my evaluation, the patient is lying in bed. The blood pressure trend is soft and heart rate in the 50s with respiratory rates in the 20s. He continues intubated and mechanically vented. ABG today showed a pH of 7.55, pCO2 39, PO2 57.6 NaHCO3 of 33.3. The patient remains on ACVC mode FiO2 30% tidal volume of 500 and a PEEP of 8. Vital signs showed soft blood pressure readings 94/55, heart rate 53 and a respiratory rate of 23. I&Os showed a total voided urine of 1200 with a positive balance of 847.0. Laboratory data showed a WBC of 8.5, H&H 11.4/37.2 , MCV 98.2 and a MCH of 30.1 and a platelet count of 122. Chemistry panel showed no electrolyte derangement. CO2 of 38, BUN 22, creatinine of 0.5 and a GFR of 116. No imaging was obtained today. 08/31/2024: At the time of my evaluation, the patient is lying in bed. He remains intubated currently on CPAP mode in attempt to wean off the vent. ABGs today showed pH of 7.47, pCO2 41, PO2 65.5, HC03 of 28.9. All sedatives have been turned off. Vital signs show normotension, but the patient is tachypneic in the 40s. Laboratory data today showed no major derangements on CBC and Chemistry panel. Urine total [id number] out with a + balance of 145.5. No new microbiology data for review. Chest x-ray still showing pulmonary infiltrates and vascular congestion. No acute events reported overnight. 09/01/2024: At the time of my evaluation, the patient is lying in bed. The staff nurse reports no acute events overnight. The patient was placed on CPAP mode 5/5, 30% pulling volumes of 500. Vital signs are currently showing blood pressure of 133/97, pulse of 54 and a respiratory rate of 22 with a pulse oximeter of 96%. Laboratory data showed no major derangement. No microbiology data for review today. No imaging for review today. No new complaint. 09/02/2024: At the time of my evaluation, the patient is lying in bed. He remains intubated and on mechanical ventilator support. Vital signs today are generally stable. I and O showing a urine total output of 1400 mL and a positive balance of 44. Laboratory data today showed a WBC of 9.4, with a neutrophil count of 88.4 % and a lymphocyte count of 5.4% hemoglobin of 11.0, hematocrit of 35.0 and a platelet count of 102. Chemistry panel showed a drop in sodium to 131, potassium of 4.0, chloride of 99, CO2 of 28, BUN of 18 and a creatinine of 0.4. No imaging for review today. No new complaint. 09/03/2024: At the time of my evaluation, the patient was lying in bed. He is awake, alert and oriented. Patient is able to follow commands, but is not verbally interactive as he remains intubated. Patient currently on AC mode with rate of 16, peep of 5, tidal volume 500 and FiO2 30%. Oxygen saturation is in the high 90s. He is currently on monitor, normotensive, not on any pressors, map of 99. Heart rate is maintained in the 80s. He currently denies any chest pain. There is no report of nausea, vomiting or diarrhea. On I's and O's show a intake of 2360.0 , a output 2300 and a negative balance of + 60. Functional licona, the patient is functional. On review of labs today, there was an increase in WBC to 11.6. Chemistry panel showed no major concern. No microbiology, pathology for review. No repeat chest x-ray for review. The staff nurse reports no acute events overnight. No other complaint. 09/04/2024: At the time of my evaluation, the patient was lying in bed. He is awake, alert and oriented. Patient is able to follow commands, but is not verbally interactive as he remains intubated. Patient currently on AC mode with rate of 16, peep of 5, tidal volume 500 and FiO2 30%. Oxygen saturation is in the high 90s. He is currently on monitor, normotensive, not on any pressors, map of 99. Heart rate is maintained in the 80s. He currently denies any chest pain. There is no report of nausea, vomiting or diarrhea. On I's and O's show a intake of 1677.0 , a output 1200 and a balance of + 477. Functional licona, the patient is functional. On review of labs today, there was no concern on WBCs. Chemistry panel showed no major concern. No microbiology, pathology for review. No repeat chest x-ray for review. The staff nurse reports no acute events overnight. No other complaint. 09/05/2024: At the time of my evaluation, the patient was lying in bed. He is awake, alert and oriented. Patient is able to follow commands, but is not verbally interactive as he remains intubated. He was being prepared for transportation down to the operating room where he will undergo trach and PEG creation. Oxygen saturation is in the high 90s. He is currently on monitor, normotensive, not on any pressors. Heart rate is maintained in the 50s. He currently denies any chest pain. There is no report of nausea, vomiting or diarrhea. On I's and O's show a intake of 1642.0 , a output 1600 and a balance of + 42.0. Functional licona, the patient is functional. On review of labs today, there was no concern on WBCs. Chemistry panel showed no major concern. No microbiology, pathology for review. No repeat chest x-ray for review. The staff nurse reports no acute events overnight. No other complaint. REVIEW OF SYSTEMS: Unable to perform due to patient intubated and sedated. PHYSICAL EXAM: GENERAL: Sedated intubated. HEENT: Sclera non icteric, moist mucosa NECK: Short neck, no JVD, trachea midline LUNGS: Diminished to all lobes bilaterally,. No wheezes HEART: Regular rate and rhythm. Normal S1 and S2, without murmurs ABD: Abdomen obese firm, nontender. Bowel sounds present EXT: No clubbing cyanosis or edema NEURO: Sedated and intubated. No focal weakness. Vital Signs (last 8hr) Date Time Temp Pulse Resp B/P (MAP) Pulse Ox O2 Delivery O2 Flow Rate FiO2 09/05/24 09:46 54 150 140/73 97 Ventilator 30 09/05/24 09:45 55 30 09/05/24 09:33 59 118 163/60 96 Ventilator 30 09/05/24 09:22 56 51 105/59 97 Ventilator 30 09/05/24 09:01 51 26 117/60 99 Ventilator 30 09/05/24 08:47 51 31 129/72 98 Ventilator 30 09/05/24 08:31 50 26 131/70 98 Ventilator 30 09/05/24 08:16 52 21 117/61 99 Ventilator 30 09/05/24 08:02 49 41 92/47 99 Ventilator 30 09/05/24 08:00 30 09/05/24 07:46 98.1 50 14 127/99 99 Ventilator 30 09/05/24 07:33 47 23 117/62 100 Ventilator 30 09/05/24 07:16 44 25 108/47 100 09/05/24 06:43 48 28 09/05/24 06:38 48 30 09/05/24 05:01 54 23 163/69 96 Ventilator 30 09/05/24 05:00 50 16 91 09/05/24 04:46 50 16 129/68 100 Ventilator 30 09/05/24 04:31 48 16 135/117 99 Ventilator 30 09/05/24 04:30 100 Ventilator+ 30 09/05/24 04:30 51 12 99 09/05/24 04:26 48 24 132/70 98 Ventilator 30 09/05/24 04:00 41 19 100 09/05/24 04:00 30 09/05/24 03:46 44 12 116/57 100 Ventilator 30 09/05/24 03:30 48 18 100 09/05/24 03:04 52 30 09/05/24 03:00 60 38 100 09/05/24 02:47 49 28 96/48 100 Ventilator 30 LABS: Hematology Labs: Test 09/04/24 04:34 Range/Units White Blood Count 9.4 4.8-10.8 K/uL Red Blood Count 4.07 L 4.50-6.20 MIL/uL Hemoglobin 12.2 L 14.0-18.0 g/dL Hematocrit 37.7 L 42-54 % Mean Corpuscular Volume 92.6 79-99 fL Mean Corpuscular Hemoglobin 30.0 27.0-33.0 pg Mean Corpuscular Hemoglobin Concent 32.4 32.0-36.0 g/dL Red Cell Distribution Width 13.0 11.0-15.5 % Platelet Count 111 L 130-400 K/uL Mean Platelet Volume 10.3 7.5-10.5 fL Immature Granulocyte % (Auto) 1.5 H 0-1 % Neutrophils (%) (Auto) 83.1 H 40.0-77.0 % Lymphocytes (%) (Auto) 7.9 L 21.0-51.0 % Monocytes (%) (Auto) 7.4 3.0-13.0 % Eosinophils (%) (Auto) 0.0 0.0-8.0 % Basophils (%) (Auto) 0.1 0.0-5.0 % Neutrophils # (Auto) 7.8 H 1.8-7.7 K/uL Lymphocytes # (Auto) 0.7 L 1.0-4.8 K/uL Monocytes # (Auto) 0.7 0.1-1.0 K/uL Eosinophils # (Auto) 0.00 0.00-0.70 K/uL Basophils # (Auto) 0.01 0.00-0.20 K/uL Absolute Immature Granulocyte (auto 0.14 0-1 K/uL Nucleated Red Blood Cells 0.0 0.0-0.19 % Chemistry Labs: Test 09/04/24 20:24 09/04/24 04:34 Range/Units Whole Blood Glucose 129 H 70-110 MG/DL Sodium Level 141 136-145 mmol/L Potassium Level 3.8 3.5-5.1 mmol/L Chloride Level 107 101-111 mmol/L Carbon Dioxide Level 29 21-32 mmol/L Blood Urea Nitrogen 20 H 7-18 mg/dL Creatinine 0.3 L 0.5-1.3 mg/dL Glomerular Filtration Rate Calc 135 >90 mL/min Random Glucose 94 70-105 mg/dL Total Calcium 8.5 8.5-10.1 mg/dL Magnesium Level 2.00 1.80-2.40 mg/dL DIAGNOSTICS / RADIOLOGY RESULTS: [ ] PLAN Maintain O2 sats above 92% Continue duo Atrovent q.6 hours p.r.n. BiPAP at HS and p.r.n. CTA chest to rule out PE Continue GI and DVT prophylaxis PT to eval and treat Wean o2 as permitted. ABG in AM Steroids Solu-medrol 40mg IV q 8 hrs. Continue IV ABX with Cefepim and Doxy -Arrange outpatient pulmonology referral for sleep study, PFT and follow-up management upon discharge sedation vacation q am to assess mental status/. Fow now he is on fentanyl and versed , mynor off versed first . 08/30/2024: For now, we are going to continue current management for the patient. We are going to to initiate spontaneous breathing trial in a.m. attempting to extubate the patient soon. He is going to continue on steroid therapy, empiric antibiotic therapy and bronchodilator therapy. I am going to request a chest x-ray in a.m.. We will also request an ABG prior to starting the spontaneous breathing trials. We will monitor the patient's progress and response to management. We will continue to provide general supportive care, GI and DVT prophylaxis. Further orders per attending MD and hospital course. 08/31/2024: For now, we are going to continue current management for the patient. The plan is to wean off the vent. We will continue spontaneous breathing trials and see of the patient will tolerate. We are going to continue with steroid therapy, Solu-Medrol 40 mg q.8h IV. He will continue on antibiotic coverage covered currently with cefepime and doxycycline. We will monitor the patient's progress and response to management. We will continue to provide g eneral supportive care, GI and DVT prophylaxis. Further orders per attending MD and hospital course. 09/01/2024: For now, going to continue current management for the patient. We will continue on CPAP trial in the possibility that we may be able to extubate the patient. I am going to request a repeat ABG to evaluate gas exchange. Of note, if we are unable to extubate the patient, he is nearing the possibility of a trach and PEG creation due to extended course of intubation with multiple kamla led weaning trials. Versed and fentanyl for sedation. We will continue to monitor the patient's progress and response to management. Continue to provide general supportive care, GI and DVT prophylaxis. Further orders per attending MD and hospital course. 09/02/2024: For now, going to continue current management for the patient. Considering the patient has failed multiple weaning trials, I have discussed with the patient and family member present at the bedside regarding the plans for possible trach and PEG creation. Patient has agreed to proceed for which we are going to consult the General surgery team. In the meantime, the patient will remain intubated and on mechanical ventilator support. We will keep an eye on the electrolyte changes that showed a significant drop of sodium and chloride count two on today's labs. We will monitor the patient's progress and response to management. Further orders per attending MD and hospital course. 09/03/2024: For now, we are going to continue current management for the patient. He will continue on mechanical ventilator support. Considering the patient is not able to be weaned off the events after multiple attempts, general surgery was consulted and the plan is for trach and PEG creation. We are going to continue to monitor the vital signs and heart rhythm. We will treat any arrhythmias if needed. We will monitor for any nausea, vomiting or diarrhea events. We will repeat surveillance labs in the morning. Nursing staff to continue assisting the patient functionally in bed. Patient will need aggressive PT for rehabilitation. We will continue to provide general supportive care, GI and DVT prophylaxis. Further orders per attending MD and hospital course. 09/04/2024: For now, we are going to continue current management for the patient. He will continue on mechanical ventilator support. Considering the patient is not able to be weaned off the events after multiple attempts, general surgery was consulted and the plan is for trach and PEG creation. This will possibly occur as early as tomorrow, but we will await confirmation by General surgery. We are going to continue to monitor the vital signs and heart rhythm. We will treat any arrhythmias if needed. We will monitor for any nausea, vomiting or diarrhea events. We will repeat surveillance labs in the morning. Nursing staff to continue assisting the patient functionally in bed. Patient will need aggressive PT for rehabilitation. We will continue to provide general supportive care, GI and DVT prophylaxis. Further orders per attending MD and hospital course. 09/05/2024: For now, we are going to continue current management for the patient. He will continue on mechanical ventilator support. Considering the patient is not able to be weaned off the events after multiple attempts, general surgery was consulted and the plan is for trach and PEG creation today. We are going to continue to monitor the vital signs and heart rhythm. We will treat any arrhythmias if needed. We will monitor for any nausea, vomiting or diarrhea events. We will repeat surveillance labs in the morning. Nursing staff to continue assisting the patient functionally in bed. Patient will need aggressive PT for rehabilitation. We will continue to provide general supportive care, GI and DVT prophylaxis. Further orders per attending MD and hospital course. NEURO: Minimize central acting medications as possible. Fall Precautions. Well lighted room through the day and minimize interruptions through the night to prevent acute delirium. PULMONARY: Supplemental 02 as needed Titrate Fio2 to keep Spo2 > or = 90% DuoNebs and CPT as needed Ventilator settings ACVC: Tv 500, RR 20, FIO2 of 60% and peep of 8 adjust as needed per ABG's IS hourly while awake for pulmonary hygiene went off vent CARDIOVASCULAR: Follow hemodynamics. Titrate vasopressor to keep MAP >65 or systolic blood pressure >95mmHg if needed. Drips: None LINES: PICC line GI & NUTRITION: Continue nutritional support Aspirations precautions Prokinetic agents and laxatives as needed No bowel movements documented. Mechanical soft diet KIDNEYS & ELECTROLYTES: Strict monitoring of intake and output Daily weights Avoid nephrotoxic agents Monitor electrolytes and replace as needed Goal urine output of 30mL/hr or 0.5mL/kg/hr ENDOCRINE: Maintain blood glucose between 100-180 at all times. Insulin sliding scale for blood glucose management INFECTIOUS DISEASE: Trend temperature. Patricio-culture if febrile. Currently afebrile Micro: Blood cultures negative Urine culture negative Respiratory cultures Sputum grew MSSA, patient completed antibiotic course Influenza B negative (patient is positive for influenza A) COVID-19 negative Antibiotics: Cefepime and doxycycline HEMATOLOGY & COAGULATION: Monitor H&H. Keep Hgb > 7 Transfuse 1 unit of PRBC for Hgb < 7 Transfuse 1 pack of platelets of platelets < 20, 000 Watch for any signs and symptoms of bleeding SKIN: Pressure ulcer prevention per facility protocol Rehab: PT/OT out of bed to chair. Prophylaxis: GI: Protonix 30 mg IV push bid DVT: Lovenox Code Status: Full Resuscitation Disposition: ICU Other: Total patient care time exceeds 45 minutes excluding all procedures. Case was discussed and seen with my supervising physician. The above plan was formulated and agreed upon. MONAE FRANCIS NP Sep 05, 2024 10:30
[2024-09-05] MEDS: ceFAZolin SODIUM 2 GM VIAL ONE (10:48)
[2024-09-05 11:00] LABS: CREATININE 0.3 mg/dL (0.5-1.3); INR 0.96 (0.85-1.15); POTASSIUM 4.2 mmol/L (3.5-5.1); PROTHROMBIN TIME 10.8 SEC (9.6-11.6)
--- NOTE | 2024-09-05 11:40 | OP ---
Operative Note: DATE OF PROCEDURE: 09/05/24 SURGEON: HERMILO ROWLAND MD TENTER: [] ANESTHESIA: [] General ANESTHESIOLOGIST/PUSH CONNECTOR ASSEMBLER: [] PREOPERATIVE DIAGNOSIS: [] Respiratory failure Dysphagia POSTOPERATIVE DIAGNOSIS: [] Same SYNOPSIS: [] PROCEDURE: [] Percutaneous endoscopic gastrostomy Percutaneous tracheostomy ESTIMATED BLOOD LOSS: [] Minimal INDICATIONS: [] DESCRIPTION OF PROCEDURE: [] With the patient conscious sedation I inserted the scope in usual fashion to the stomach. The OG tube was removed and I visualize the light through the abdominal wall. Place for the gastrostomy was selected and I placed a needle and a wire after making a small incision. Using a snare I was able to grab the wire brought it all the way to the mouth. A push type tube 20. Was placed and was brought to the abdominal wall without any problem. I follow the tube with the endoscope in I was able to see and confirm the right position. I suctioned all the fluid and air and I removed the scope A 3rd per lysis in the placing the patient in general anesthesia attention was given to the neck. A bronchoscope was placed in the endotracheal tube was pulled a few inches after visualizing the chencho. After prepped the area of the neck I make a small incision a few cm above the sternal notch and I any subcutaneous tissue with hemostat. I placed a needle into the trachea and a wire and this was visualized with the bronchoscope. I dilated the trachea and a using the percutaneous dilatational kit I was able to place a Shiley trach 8. The bronch was placed into the trachea and confirmed and we connected to the ventilator. A few sutures were placed to anchor the trach in his side of skin and procedure was completed without any complication. HERMILO ROWLAND MD Sep 05, 2024 11:40
--- NOTE | 2024-09-05 11:52 | NUR ---
Nutritional f/u Note: Chart, meds, and labs Reviewed. Pt remains intubated, on vent and is pending PEG placement. Currently receiving vital af @50ml/hr current TF provides 1440kcal, 72gm pro 960ml total free h20. Prostat provides extra 200kcal and 30gm pro Abnormal nutrition related labs: Nutrition-related Meds: Wt Status: current wt 102kg with down 7.9kg from admit wt on 08/12, though fluid shifts may contribute. No reported n/v, or diarrhea. Recommend: -continue current tF as tolerated -Once PEG is placed, reassess TF regimen per updated wt and clinical status. -Monitor feeding tolerance, %, wt, and labs -If No BM >3days consider bowel stimulant. - Please notify RD if additional nutrition concerns arise. Addendum: 09/05/24 at [address] Amended: Links added.
--- NOTE | 2024-09-05 12:06 | PN ---
INFECTIOUS DISEASE PROGRESS NOTE Date of Service: Sep 05, 2024 SUBJECTIVE: Patient was seen and examined at bedside in the ICU room 206. Patient is awake, alert and oriented but unable to answer questions due to status post tracheostomy and percutaneous endoscopic gastrostomy tube placement today. Patient is afebrile, temperature is 98.1. Currently continues on cefepime and doxycycline. No other issues reported by nursing. We will continue to follow patient's care. PHYSICAL EXAM EYES: Anicteric. Pupils equal and reactive. HENT: No oral thrush seen, moist Oral mucosa. NECK: Supple, no JVD or thyromegaly. RESPIRATORY: Status post tracheostomy CARDIOVASCULAR: S1, S2 regular. No murmur heard. ABDOMEN: Soft, non tender, bowel sounds present, no organomegaly. Status post PEG tube placement. CENTRAL NERVOUS SYSTEM: Awake, alert, oriented x 3. SKIN: No rashes, no swelling. LYMPHATICS: No peripheral lymphadenopathy. MUSCULOSKELETAL: No joint swelling, erythema or tenderness. EXTREMITIES: No cyanosis or clubbing. BACK: No deformity, no pressure ulcer. GENITOURINARY: No dysuria or hematuria. Michele catheter. Vital Sign (Last 12 Hours) 09/05/24 09/05/24 09/05/24 09/05/24 00:19 00:30 00:58 01:00 Pulse 48 54 49 Resp 28 23 Pulse Ox 88 100 100 O2 Delivery Ventilator+ FiO2 30 30 09/05/24 09/05/24 09/05/24 09/05/24 01:30 01:46 02:00 02:30 Pulse 48 47 54 60 Resp 29 32 46 38 B/P (MAP) 127/66 Pulse Ox 100 100 99 100 09/05/24 09/05/24 09/05/24 09/05/24 02:47 03:00 03:04 03:30 Pulse 49 60 52 48 Resp 28 38 18 B/P (MAP) 96/48 Pulse Ox 100 100 100 O2 Delivery Ventilator FiO2 30 30 09/05/24 09/05/24 09/05/24 09/05/24 03:46 04:00 04:00 04:26 Pulse 44 41 48 Resp 12 19 24 B/P (MAP) 116/57 132/70 Pulse Ox 100 100 98 O2 Delivery Ventilator Ventilator FiO2 30 30 30 09/05/24 09/05/24 09/05/24 09/05/24 04:30 04:30 04:31 04:46 Pulse 51 48 50 Resp 12 16 16 B/P (MAP) 135/117 129/68 Pulse Ox 99 100 99 100 O2 Delivery Ventilator+ Ventilator Ventilator FiO2 30 30 30 09/05/24 09/05/24 09/05/24 09/05/24 05:00 05:01 06:38 06:43 Pulse 50 54 48 48 Resp 16 23 28 B/P (MAP) 163/69 Pulse Ox 91 96 O2 Delivery Ventilator FiO2 30 30 09/05/24 09/05/24 09/05/24 09/05/24 07:16 07:33 07:46 08:00 Temp 98.1 Pulse 44 47 50 Resp 25 23 14 B/P (MAP) 108/47 117/62 127/99 Pulse Ox 100 100 99 O2 Delivery Ventilator Ventilator FiO2 30 30 30 09/05/24 09/05/24 09/05/24 09/05/24 08:02 08:16 08:31 08:47 Pulse 49 52 50 51 Resp 41 21 26 31 B/P (MAP) 92/47 117/61 131/70 129/72 Pulse Ox 99 99 98 98 O2 Delivery Ventilator Ventilator Ventilator Ventilator FiO2 30 30 30 30 09/05/24 09/05/24 09/05/24 09/05/24 09:01 09:22 09:33 09:45 Pulse 51 56 59 55 Resp 26 51 118 B/P (MAP) 117/60 105/59 163/60 Pulse Ox 99 97 96 O2 Delivery Ventilator Ventilator Ventilator FiO2 30 30 30 30 09/05/24 09/05/24 09/05/24 09:46 11:50 11:53 Pulse 54 68 66 Resp 150 18 B/P (MAP) 140/73 Pulse Ox 97 O2 Delivery Ventilator FiO2 30 30 Intake & Output (last 24hrs) 09/04/24 09/04/24 09/05/24 15:00 23:00 07:00 Intake Total 974.0 ml 665.0 ml 0 ml Output Total 600 ml 1000 ml Balance 974.0 ml 65.0 ml -1000 ml LABS: Laboratory: Test 09/05/24 10:30 09/04/24 20:24 09/04/24 04:34 Range/Units Prothrombin Time 10.8 9.6-11.6 SEC Prothromb Time International Ratio 0.96 0.85-1.15 Sodium Level 135 L 136-145 mmol/L Potassium Level 4.2 3.5-5.1 mmol/L Chloride Level 103 101-111 mmol/L Carbon Dioxide Level 24 21-32 mmol/L Blood Urea Nitrogen 14 7-18 mg/dL Creatinine 0.3 L 0.5-1.3 mg/dL Glomerular Filtration Rate Calc 135 >90 mL/min Random Glucose 114 H 70-105 mg/dL Total Calcium 8.9 8.5-10.1 mg/dL Whole Blood Glucose 129 H 70-110 MG/DL White Blood Count 9.4 4.8-10.8 K/uL Red Blood Count 4.07 L 4.50-6.20 MIL/uL Hemoglobin 12.2 L 14.0-18.0 g/dL Hematocrit 37.7 L 42-54 % Mean Corpuscular Volume 92.6 79-99 fL Mean Corpuscular Hemoglobin 30.0 27.0-33.0 pg Mean Corpuscular Hemoglobin Concent 32.4 32.0-36.0 g/dL Red Cell Distribution Width 13.0 11.0-15.5 % Platelet Count 111 L 130-400 K/uL Mean Platelet Volume 10.3 7.5-10.5 fL Immature Granulocyte % (Auto) 1.5 H 0-1 % Neutrophils (%) (Auto) 83.1 H 40.0-77.0 % Lymphocytes (%) (Auto) 7.9 L 21.0-51.0 % Monocytes (%) (Auto) 7.4 3.0-13.0 % Eosinophils (%) (Auto) 0.0 0.0-8.0 % Basophils (%) (Auto) 0.1 0.0-5.0 % Neutrophils # (Auto) 7.8 H 1.8-7.7 K/uL Lymphocytes # (Auto) 0.7 L 1.0-4.8 K/uL Monocytes # (Auto) 0.7 0.1-1.0 K/uL Eosinophils # (Auto) 0.00 0.00-0.70 K/uL Basophils # (Auto) 0.01 0.00-0.20 K/uL Absolute Immature Granulocyte (auto 0.14 0-1 K/uL Nucleated Red Blood Cells 0.0 0.0-0.19 % Magnesium Level 2.00 1.80-2.40 mg/dL ASSESSMENT: Acute on chronic hypoxic and hypercapnic respiratory failure, requiring intubation, status post tracheostomy. Gram-positive pneumonia. Oropharyngeal dysphagia secondary to prolonged intubation, status post PEG tube placement. Staphylococcus bacteremia, probably a contaminant. Infection with Methicillin sensitive Staphylococcus aureus. Leukocytosis. Influenza Viral infection POA. COPD exacerbation. Diabetes mellitus. Polysubstance abuse. PLAN: Continue doxycycline IV. Continue cefepime IV. Continue critical care to support. Continue ventilatory support. Continue steroids. Continue GI prophylaxis. Continue monitoring glucose levels. We will monitor electrolytes. This case was reviewed and discussed with my supervising physician and the above assessment and plan was formulated and agreed upon. ATTESTATION BY PHYSICIAN I have seen and examined the patient. I reviewed the documentation, medical decision making, and treatment plan as noted by the mid-level provider above. I agree with the findings and plan of care. MERI HOFFMAN MD, [facility] Sep 05, 2024 12:06
[2024-09-05 12:29] LABS: HEMATOCRIT 40.6 % (42-54); MEAN CORPUSCULAR HEMOGLOBIN 30.3 pg (27.0-33.0); MEAN CORPUSCULAR HGB CONC 33.3 g/dL (32.0-36.0); MEAN CORPUSCULAR VOLUME 91.2 fL (79-99); PLATELET COUNT (AUTO) 134 K/uL (130-400); RED BLOOD CELL COUNT(AUTO) 4.45 MIL/uL (4.50-6.20); RED CELL DISTRIBUTION WIDTH 13.2 % (11.0-15.5); WHITE BLOOD COUNT (AUTO) 10.7 K/uL (4.8-10.8)
[2024-09-05] MEDS: ceFAZolin SODIUM 2 GM VIAL IVPB ONE (12:32)
[2024-09-05] MEDS: morPHINE 2 MG SYG ONE (12:33)
[2024-09-05] MEDS: NOREPINEPHRIN 4MG/NS 250ML 0 ML IV ONE (12:34)
[2024-09-05 13:09] LABS: BAND NEUTROPHILS % (MANUAL) 1 % (0-2); LYMPHOCYTES % (MANUAL) 7 % (22-44); MAN.DIFF COMMENT-IMPRESSION MANUAL DIFFERENTIAL; MONOCYTES % (MANUAL) 3 % (2-9); PLATELET MORPHOLOGY COMMENT ADEQUATE; SEGMENTED NEUTROPHILS % 89 % (40-70); TOTAL CELLS COUNTED 100
[2024-09-05 13:10] LABS: WBC MORPHOLOGY CONSISTENT W/DIFF
[2024-09-05] MEDS: hydroMORPHone 1 MG INJ IVP ONE (13:39)
[2024-09-05] MEDS: DOXYCYCLINE 100MG+NS 250ML 250 ML IV SCH (13:40)
[2024-09-05] MEDS: ceFEPime HCL 2 GM VIAL IVPB SCH (13:40)
[2024-09-05] MEDS: morPHINE 2 MG SYG IVP PRN (16:16)
[2024-09-05] MEDS: Solu-medROL 40MG VIAL IVP SCH (20:34)
[2024-09-06] VITALS (32 sets, daily range): BP systolic 101–128; BP diastolic 52–74; PULSE 53–83; RESP 12–74; TEMP 98–99; O2SAT 96–100
[2024-09-06] MEDS: INSULIN humuLIN R 100 UNIT/ML 3ML SQ SCH
[2024-09-06 04:31] LABS: BASOPHILS # (AUTO) 0.02 K/uL (0.00-0.20); BASOPHILS % (AUTO) 0.2 % (0.0-5.0); HEMATOCRIT 37.6 % (42-54); IMMATURE GRANULOCYTE ABSOLUTE 0.18 K/uL (0-1); LYMPHOCYTES # (AUTO) 0.4 K/uL (1.0-4.8); MEAN CORPUSCULAR HEMOGLOBIN 30.2 pg (27.0-33.0); MEAN CORPUSCULAR HGB CONC 32.4 g/dL (32.0-36.0); MEAN CORPUSCULAR VOLUME 93.1 fL (79-99); MONOCYTES # (AUTO) 0.7 K/uL (0.1-1.0); NEUTROPHILS # (AUTO) 9.8 K/uL (1.8-7.7); NEUTROPHILS % (AUTO) 88.2 % (40.0-77.0); PLATELET COUNT (AUTO) 134 K/uL (130-400); RED BLOOD CELL COUNT(AUTO) 4.04 MIL/uL (4.50-6.20); RED CELL DISTRIBUTION WIDTH 13.3 % (11.0-15.5); WHITE BLOOD COUNT (AUTO) 11.1 K/uL (4.8-10.8)
[2024-09-06 04:44] LABS: CREATININE 0.4 mg/dL (0.5-1.3); POTASSIUM 3.7 mmol/L (3.5-5.1)
--- NOTE | 2024-09-06 08:56 | HMCIMG ---
CHEST 1VW REASON: PNA COMPARISON: 08/31/2024 FINDINGS: There is mild cardiomegaly. Lungs are clear. There is no vascular congestion. Tracheostomy tube has been placed. There is no evidence of pneumothorax. Right-sided PICC line remains in place. NG has been removed. IMPRESSION: 1. Tracheostomy tube placement without evidence of complication.
--- NOTE | 2024-09-06 09:18 | PN ---
[facility] PROGRESS NOTE Date Patient Seen: Sep 06, 2024 Time of Visit: 09:18 Supervising Physician: Oniel Dasilva MD Supervising Physician: Dr. Joel Soto Primary Care Physician: [Dr. Zafar Harris ] Outpatient Specialists: [ ] Inpatient Consults: PROBLEM LIST: Acute on chronic hypoxemic and hypercapnic respiratory reintubated 08/29/24, Failed weaning trials. S/P Trach and PEG on 09/05/24 Severe COPD/asthma/emphysema recurrent exacerbation-POA Septic Shock POA requiring PRESSORS, resolved 2/2 Gram-positive cocci bacteremia, POA, on repeat neg BC (likely contamination) Acute on chronic hypoxic hypercapnic respiratory failure requiring vent support- POA Intubated POA, extubated 08/22/24 Elevated D-Dimer Neg DVT, Well's score for PE 4.5 (moderate risk) pending CTA to r/o PE Viral community-acquired pneumonia + Influenza A W/ superimposed bacterial Pneumonia -POA 2nd to MSSA Hyponatremia Hypochloremia-POA Hypokalemia corrected Primary hypertension Diabetes mellitus HLD Chronic nicotine disorder Obstructive sleep apnea Polysubstance abuse with tobacco, cocaine and alcohol Fatty Liver Morbid obese, BMI 39.9 INTERVAL HISTORY: 08/29/24- overnight patient became lethargic and retaining CO2 patient had to be emergently intubated due to failing BiPAP and pt refusing to keep Bipap on over night. . Patient was transferred to ICU for acute hypoxemic and hypercapnic. Initial ABG with pH of 7.20, pCO2 of 122, PO2 114. Now ABG shows a pH of 7.53, pCO2 of 49, PO2 of 68, bicarb of 40.4 with ventilator settings of assist control volume control FiO2 of 60% and PEEP of eight, respiratory rate of 20 and tidal volume of 500. WBCs are normal, H&H similar to yesterday platelet count is 127 K. chemistries sodium is 150 potassium is 3.5 carbon dioxide of 43 BUN of 20 creatinine of 0.4 glucose of 186 mg/dL. On chest x-ray mild bilateral pulmonary infiltrates are seen may be related to mild pulmonary vascular congestion with possible superimposed pneumonitis. We will continue mechanical ventilation support. Patient has previous multiple visits to the hospital with intubation. He has failed extubation and I spoke to his brother who is his POA and discu and discussed with him the possibility of tracheostomy and PEG tube placement due to advanced COPD. As per brother he is going to talk it over with more family and think about the decision to go through with PEG and trach. Fow now we will optimize oxygenation and when we have and FiO2 requirement of less than 50% and a PEEP of 5-6, then we may consult general surgery for trach and PEG if in agreement with family/pt. 08/30/2024: At the time of my evaluation, the patient is lying in bed. The blood pressure trend is soft and heart rate in the 50s with respiratory rates in the 20s. He continues intubated and mechanically vented. ABG today showed a pH of 7.55, pCO2 39, PO2 57.6 NaHCO3 of 33.3. The patient remains on ACVC mode FiO2 30% tidal volume of 500 and a PEEP of 8. Vital signs showed soft blood pressure readings 94/55, heart rate 53 and a respiratory rate of 23. I&Os showed a total voided urine of 1200 with a positive balance of 847.0. Laboratory data showed a WBC of 8.5, H&H 11.4/37.2 , MCV 98.2 and a MCH of 30.1 and a platelet count of 122. Chemistry panel showed no electrolyte derangement. CO2 of 38, BUN 22, creatinine of 0.5 and a GFR of 116. No imaging was obtained today. 08/31/2024: At the time of my evaluation, the patient is lying in bed. He remains intubated currently on CPAP mode in attempt to wean off the vent. ABGs today showed pH of 7.47, pCO2 41, PO2 65.5, HC03 of 28.9. All sedatives have been turned off. Vital signs show normotension, but the patient is tachypneic in the 40s. Laboratory data today showed no major derangements on CBC and Chemistry panel. Urine total [id number] out with a + balance of 145.5. No new microbiology data for review. Chest x-ray still showing pulmonary infiltrates and vascular congestion. No acute events reported overnight. 09/01/2024: At the time of my evaluation, the patient is lying in bed. The staff nurse reports no acute events overnight. The patient was placed on CPAP mode 5/5, 30% pulling volumes of 500. Vital signs are currently showing blood pressure of 133/97, pulse of 54 and a respiratory rate of 22 with a pulse oximeter of 96%. Laboratory data showed no major derangement. No microbiology data for review today. No imaging for review today. No new complaint. 09/02/2024: At the time of my evaluation, the patient is lying in bed. He remains intubated and on mechanical ventilator support. Vital signs today are g enerally stable. I and O showing a urine total output of 1400 mL and a positive balance of 44. Laboratory data today showed a WBC of 9.4, with a neutrophil count of 88.4 % and a lymphocyte count of 5.4% hemoglobin of 11.0, hematocrit of 35.0 and a platelet count of 102. Chemistry panel showed a drop in sodium to 131, potassium of 4.0, chloride of 99, CO2 of 28, BUN of 18 and a creatinine of 0.4. No imaging for review today. No new complaint. 09/03/2024: At the time of my evaluation, the patient was lying in bed. He is awake, alert and oriented. Patient is able to follow commands, but is not verbally interactive as he remains intubated. Patient currently on AC mode with rate of 16, peep of 5, tidal volume 500 and FiO2 30%. Oxygen saturation is in t he high 90s. He is currently on monitor, normotensive, not on any pressors, map of 99. Heart rate is maintained in the 80s. He currently denies any chest pain. There is no report of nausea, vomiting or diarrhea. On I's and O's show a intake of 2360.0 , a output 2300 and a negative balance of + 60. Functional licona, the patient is functional. On review of labs today, there was an increase in WBC to 11.6. Chemistry panel showed no major concern. No microbiology, pathology for review. No repeat chest x-ray for review. The staff nurse reports no acute events overnight. No other complaint. 09/04/2024: At the time of my evaluation, the patient was lying in bed. He is awake, alert and oriented. Patient is able to follow commands, but is not verbally interactive as he remains intubated. Patient currently on AC mode with rate of 16, peep of 5, tidal volume 500 and FiO2 30%. Oxygen saturation is in the high 90s. He is currently on monitor, normotensive, not on any pressors, map of 99. Heart rate is maintained in the 80s. He currently denies any chest pain. There is no report of nausea, vomiting or diarrhea. On I's and O's show a intake of 1677.0 , a output 1200 and a balance of + 477. Functional licona, the patient is functional. On review of labs today, there was no concern on WBCs. Chemistry panel showed no major concern. No microbiology, pathology for review. No repeat chest x-ray for review. The staff nurse reports no acute events overnight. No other complaint. 09/05/2024: At the time of my evaluation, the patient was lying in bed. He is awake, alert and oriented. Patient is able to follow commands, but is not verba lly interactive as he remains intubated. He was being prepared for transportation down to the operating room where he will undergo trach and PEG creation. Oxygen saturation is in the high 90s. He is currently on monitor, normotensive, not on any pressors. Heart rate is maintained in the 50s. He currently denies any chest pain. There is no report of nausea, vomiting or diarrhea. On I's and O's show a intake of 1642.0 , a output 1600 and a balance of + 42.0. Functional licona, the patient is functional. On review of labs today, there was no concern on WBCs. Chemistry panel showed no major concern. No microbiology, pathology for review. No repeat chest x-ray for review. The staff nurse reports no acute events overnight. No other complaint. 09/06/24- patient is awake alert following commands. Day 1. Status post trach and PEG placement. He is tolerating feedings well saturating 98% with 30% FiO2. Tolerating CPAP trials this morning. Patient is hemodynamically stable. Patient denies any pain at this time. Urine output is 1 L with a balance of +643 mL. Patient had one bowel movement. On laboratory WBCs 11.1 likely reactive from procedure yesterday. H&H similar to yesterday 12.2/37.6 neutrophils 88.2 decreasing. Chemistry kidneys are doing well creatinine of 0.4 with a GFR of 124 glucose 166 mg/dL otherwise unremarkable. On chest x-ray tracheostomy tube placement without evidence of complications. Lungs are clear. There is no vascular congestion. There is no evidence of pneumothorax. Right-sided PICC line remains in place. Mild cardiomegaly. PT ordered for eval and treatment. Case management for DC planning to LTAC. REVIEW OF SYSTEMS: unable to perform due to trach, PHYSICAL EXAM: GENERAL: Status post tracheostomy awake alert following commands. HEENT: Sclera non icteric, moist mucosa NECK: Short neck, no JVD, trachea midline LUNGS: Clear to all lobes bilaterally,. No wheezes HEART: Regular rate and rhythm. Normal S1 and S2, without murmurs ABD: Abdomen obese firm, nontender. Bowel sounds present EXT: No clubbing cyanosis or edema NEURO: Awake alert following commands GCS of 15. No focal deficits. Vital Signs (last 8hr) Date Time Temp Pulse Resp B/P (MAP) Pulse Ox O2 Delivery O2 Flow Rate FiO2 09/06/24 06:30 56 16 114/62 (79) 97 09/06/24 06:00 53 16 111/65 (80) 97 09/06/24 05:30 62 74 124/74 (91) 96 09/06/24 05:00 59 12 119/71 (87) 97 09/06/24 04:30 59 17 123/74 (90) 97 09/06/24 04:00 99.0 59 17 123/74 (90) 97 09/06/24 04:00 30 09/06/24 04:00 100 Ventilator+ 30 09/06/24 03:30 57 19 123/67 (85) 98 09/06/24 03:00 56 16 101/65 (77) 96 09/06/24 02:46 60 30 09/06/24 02:00 53 16 106/59 (75) 95 09/06/24 01:30 56 16 115/67 (83) 96 LABS: Hematology Labs: Test 09/06/24 03:54 09/05/24 12:05 Range/Units White Blood Count 11.1 H 4.8-10.8 K/uL Red Blood Count 4.04 L 4.50-6.20 MIL/uL Hemoglobin 12.2 L 14.0-18.0 g/dL Hematocrit 37.6 L 42-54 % Mean Corpuscular Volume 93.1 79-99 fL Mean Corpuscular Hemoglobin 30.2 27.0-33.0 pg Mean Corpuscular Hemoglobin Concent 32.4 32.0-36.0 g/dL Red Cell Distribution Width 13.3 11.0-15.5 % Platelet Count 134 130-400 K/uL Mean Platelet Volume 10.4 7.5-10.5 fL Immature Granulocyte % (Auto) 1.6 H 0-1 % Neutrophils (%) (Auto) 88.2 H 40.0-77.0 % Lymphocytes (%) (Auto) 4.0 L 21.0-51.0 % Monocytes (%) (Auto) 6.0 3.0-13.0 % Eosinophils (%) (Auto) 0.0 0.0-8.0 % Basophils (%) (Auto) 0.2 0.0-5.0 % Neutrophils # (Auto) 9.8 H 1.8-7.7 K/uL Lymphocytes # (Auto) 0.4 L 1.0-4.8 K/uL Monocytes # (Auto) 0.7 0.1-1.0 K/uL Eosinophils # (Auto) 0.00 0.00-0.70 K/uL Basophils # (Auto) 0.02 0.00-0.20 K/uL Absolute Immature Granulocyte (auto 0.18 0-1 K/uL Nucleated Red Blood Cells 0.0 0.0-0.19 % Segmented Neutrophils % 89 H 40-70 % Band Neutrophils % 1 0-2 % Lymphocytes % (Manual) 7 L 22-44 % Monocytes % (Manual) 3 2-9 % Differential Comment MANUAL DIFFERENTIAL White Cell Morphology Comment CONSISTENT W/DIFF Platelet Morphology Comment ADEQUATE Red Blood Cell Morphology ANISO 1+ Chemistry Labs: Test 09/06/24 03:54 09/05/24 12:11 Range/Units Sodium Level 139 136-145 mmol/L Potassium Level 3.7 3.5-5.1 mmol/L Chloride Level 104 101-111 mmol/L Carbon Dioxide Level 29 21-32 mmol/L Blood Urea Nitrogen 18 7-18 mg/dL Creatinine 0.4 L 0.5-1.3 mg/dL Glomerular Filtration Rate Calc 124 >90 mL/min Random Glucose 166 H 70-105 mg/dL Total Calcium 8.5 8.5-10.1 mg/dL Whole Blood Glucose 125 H 70-110 MG/DL Coagulation Labs: Test 09/05/24 10:30 Range/Units Prothrombin Time 10.8 9.6-11.6 SEC Prothromb Time International Ratio 0.96 0.85-1.15 DIAGNOSTICS / RADIOLOGY RESULTS: [ ]Signed PATIENT: CHRISTINE CURTIS MR#: [id number] : 1965 SEX: M AGE: 59 LOCATION: 2BH ORDER 2300 STATUS: ADM IN REPORT#: [id number] SERVICE 0600 REASON: PNA ORDERING PHYSICIAN: MONAE FRANCIS NP PROCEDURE: CXR1VW - CHEST 1VW CHEST 1VW REASON: PNA COMPARISON: 08/31/2024 FINDINGS: There is mild cardiomegaly. Lungs are clear. There is no vascular congestion. Tracheostomy tube has been placed. There is no evidence of pneumothorax. Right-sided PICC line remains in place. NG has been removed. IMPRESSION: 1. Tracheostomy tube placement without evidence of complication. DICTATED BY: ANDREI GOSS MD DATE: 09/06/24 0853 ELECTRONICALLY SIGNED BY: ANDREI GOSS MD DATE: 09/06/24 0856 PLAN Maintain O2 sats above 92% Continue duo Atrovent q.6 hours p.r.n. dailt SBT's Continue GI and DVT prophylaxis PT to eval and treat Wean o2 as permitted. no need for daily CXR wean steroids Continue IV ABX with Cefepim and Doxy Arrange outpatient pulmonology referral for sleep study, PFT and follow-up m anagement upon discharge CM fo DC Panning. recommend LTAC NEURO: Minimize central acting medications as possible. Fall Precautions. Well lighted room through the day and minimize interruptions through the night to prevent acute delirium. PULMONARY: Supplemental 02 as needed Titrate Fio2 to keep Spo2 > or = 90% DuoNebs and CPT as needed Ventilator settings ACVC: Tv 500, RR 20, FIO2 of 60% and peep of 8 adjust as needed per ABG's IS hourly while awake for pulmonary hygiene went off vent CARDIOVASCULAR: Follow hemodynamics. Titrate vasopressor to keep MAP >65 or systolic blood pressure >95mmHg if needed. Drips: None LINES: PICC line GI & NUTRITION: Continue nutritional support Aspirations precautions Prokinetic agents and laxatives as needed No bowel movements documented. Mechanical soft diet KIDNEYS & ELECTROLYTES: Strict monitoring of intake and output Daily weights Avoid nephrotoxic agents Monitor electrolytes and replace as needed Goal urine output of 30mL/hr or 0.5mL/kg/hr ENDOCRINE: Maintain blood glucose between 100-180 at all times. Insulin sliding scale for blood glucose management INFECTIOUS DISEASE: Trend temperature. Patricio-culture if febrile. Currently afebrile Micro: Blood cultures negative Urine culture negative Respiratory cultures Sputum grew MSSA, patient completed antibiotic course Influenza B negative (patient is positive for influenza A) COVID-19 negative Antibiotics: Cefepime and doxycycline HEMATOLOGY & COAGULATION: Monitor H&H. Keep Hgb > 7 Transfuse 1 unit of PRBC for Hgb < 7 Transfuse 1 pack of platelets of platelets < 20, 000 Watch for any signs and symptoms of bleeding SKIN: Pressure ulcer prevention per facility protocol Rehab: PT/OT out of bed to chair. Prophylaxis: GI: Protonix 30 mg IV push bid DVT: Lovenox Code Status: Full Resuscitation Disposition: ICU Other: Total patient care time exceeds 45 minutes excluding all procedures. Case was discussed and seen with my supervising physician. The above plan was formulated and agreed upon. SHEY RENAE Sep 06, 2024 09:18
--- NOTE | 2024-09-06 12:49 | NUR ---
DC PLAN VISITED WITH PATIENT AND FAMILY. PATIENT WRITES QUESTIONS DOWN. ANSWERED QUESTION [facility] FOR LTAC SIGNED. INFO SENT. Addendum: 09/06/24 at 1252 by BRANDIN WORKMAN RN CM Amended: Links added.
--- NOTE | 2024-09-06 18:04 | PN ---
INFECTIOUS DISEASE PROGRESS NOTE Date of Service: Sep 06, 2024 SUBJECTIVE: Patient was seen and examined at bedside in the ICU room 206. Patient is status post tracheostomy and percutaneous endoscopic gastrostomy tube placement day # 1. No reports of fever. Patient has been started on tube feedings and no reports of nausea or vomiting. Continues on cefepime and doxycycline IV. We will continue to follow patient's care. PHYSICAL EXAM EYES: Anicteric. Pupils equal and reactive. HENT: No oral thrush seen, moist Oral mucosa. NECK: Supple, no JVD or thyromegaly. RESPIRATORY: Status post tracheostomy CARDIOVASCULAR: S1, S2 regular. No murmur heard. ABDOMEN: Soft, non tender, bowel sounds present, no organomegaly. Status post PEG tube placement. CENTRAL NERVOUS SYSTEM: Awake, alert, oriented x 3. SKIN: No rashes, no swelling. LYMPHATICS: No peripheral lymphadenopathy. MUSCULOSKELETAL: No joint swelling, erythema or tenderness. EXTREMITIES: No cyanosis or clubbing. BACK: No deformity, no pressure ulcer. GENITOURINARY: No dysuria or hematuria. Michele catheter. Vital Sign (Last 12 Hours) 09/06/24 09/06/24 09/06/24 09/06/24 06:30 06:50 06:57 08:00 Pulse 56 53 53 Resp 16 18 B/P (MAP) 114/62 (79) Pulse Ox 97 FiO2 30 30 09/06/24 09/06/24 09/06/24 09/06/24 09:32 10:22 11:22 12:00 Pulse 56 67 76 Resp 18 FiO2 30 30 09/06/24 09/06/24 12:02 16:00 Pulse 75 FiO2 30 Intake & Output (last 24hrs) 09/05/24 09/05/24 09/06/24 15:00 23:00 07:00 Intake Total 290.0 ml 1353.0 ml Output Total 1000 ml Balance 290.0 ml 353.0 ml LABS: Laboratory: Test 09/06/24 03:54 09/05/24 12:11 09/05/24 12:05 09/05/24 10:30 Range/Units White Blood Count 11.1 H 4.8-10.8 K/uL Red Blood Count 4.04 L 4.50-6.20 MIL/uL Hemoglobin 12.2 L 14.0-18.0 g/dL Hematocrit 37.6 L 42-54 % Mean Corpuscular Volume 93.1 79-99 fL Mean Corpuscular Hemoglobin 30.2 27.0-33.0 pg Mean Corpuscular Hemoglobin Concent 32.4 32.0-36.0 g/dL Red Cell Distribution Width 13.3 11.0-15.5 % Platelet Count 134 130-400 K/uL Mean Platelet Volume 10.4 7.5-10.5 fL Immature Granulocyte % (Auto) 1.6 H 0-1 % Neutrophils (%) (Auto) 88.2 H 40.0-77.0 % Lymphocytes (%) (Auto) 4.0 L 21.0-51.0 % Monocytes (%) (Auto) 6.0 3.0-13.0 % Eosinophils (%) (Auto) 0.0 0.0-8.0 % Basophils (%) (Auto) 0.2 0.0-5.0 % Neutrophils # (Auto) 9.8 H 1.8-7.7 K/uL Lymphocytes # (Auto) 0.4 L 1.0-4.8 K/uL Monocytes # (Auto) 0.7 0.1-1.0 K/uL Eosinophils # (Auto) 0.00 0.00-0.70 K/uL Basophils # (Auto) 0.02 0.00-0.20 K/uL Absolute Immature Granulocyte (auto 0.18 0-1 K/uL Nucleated Red Blood Cells 0.0 0.0-0.19 % Sodium Level 139 136-145 mmol/L Potassium Level 3.7 3.5-5.1 mmol/L Chloride Level 104 101-111 mmol/L Carbon Dioxide Level 29 21-32 mmol/L Blood Urea Nitrogen 18 7-18 mg/dL Creatinine 0.4 L 0.5-1.3 mg/dL Glomerular Filtration Rate Calc 124 >90 mL/min Random Glucose 166 H 70-105 mg/dL Total Calcium 8.5 8.5-10.1 mg/dL Whole Blood Glucose 125 H 70-110 MG/DL Segmented Neutrophils % 89 H 40-70 % Band Neutrophils % 1 0-2 % Lymphocytes % (Manual) 7 L 22-44 % Monocytes % (Manual) 3 2-9 % Differential Comment MANUAL DIFFERENTIAL White Cell Morphology Comment CONSISTENT W/DIFF Platelet Morphology Comment ADEQUATE Red Blood Cell Morphology ANISO 1+ Prothrombin Time 10.8 9.6-11.6 SEC Prothromb Time International Ratio 0.96 0.85-1.15 ASSESSMENT: Acute on chronic hypoxic and hypercapnic respiratory failure, requiring intubation, s/p tracheostomy on 09/05/2024. Gram-positive pneumonia. Oropharyngeal dysphagia secondary to prolonged intubation, status post PEG tube placement on 09/05/2024. Staphylococcus bacteremia, which is a contaminant. Infection with Methicillin sensitive Staphylococcus aureus. Leukocytosis. Influenza Viral infection POA. COPD exacerbation. Diabetes mellitus. Polysubstance abuse. PLAN: Continue doxycycline IV. Continue cefepime IV. Continue critical care to support. Continue ventilatory support. Continue steroids. Continue GI prophylaxis. Continue monitoring glucose levels. We will monitor electrolytes. This case was reviewed and discussed with my supervising physician and the above assessment and plan was formulated and agreed upon. ATTESTATION BY PHYSICIAN I have seen and examined the patient. I reviewed the documentation, medical decision making, and treatment plan as noted by the mid-level provider above. I agree with the findings and plan of care. MERI HOFFMAN MD, [facility] Sep 06, 2024 18:04
[2024-09-07] VITALS (36 sets, daily range): BP systolic 109–153; BP diastolic 59–97; PULSE 62–95; RESP 16–84; TEMP 98.4–99.3; O2SAT 95–100
[2024-09-07] MEDS: predniSONE 20 MG TABLET NG SCH (08:07)
--- NOTE | 2024-09-07 08:58 | PN ---
[facility] PROGRESS NOTE Date Patient Seen: Sep 07, 2024 Time of Visit: 08:57 Supervising Physician: Joel Soto MD Supervising Physician: Dr. Joel Soto Primary Care Physician: [Dr. Zafar Harris ] Outpatient Specialists: [ ] Inpatient Consults: PROBLEM LIST: Acute on chronic hypoxemic and hypercapnic respiratory reintubated 08/29/24, Failed weaning trials. S/P Trach and PEG on 09/05/24 Severe COPD/asthma/emphysema recurrent exacerbation-POA Septic Shock POA requiring PRESSORS, resolved 2/2 Gram-positive cocci bacteremia, POA, on repeat neg BC (likely contamination) Acute on chronic hypoxic hypercapnic respiratory failure requiring vent support- POA Intubated POA, extubated 08/22/24 Elevated D-Dimer Neg DVT, Well's score for PE 4.5 (moderate risk) pending CTA to r/o PE Viral community-acquired pneumonia + Influenza A W/ superimposed bacterial Pneumonia -POA 2nd to MSSA Hyponatremia Hypochloremia-POA Hypokalemia corrected Primary hypertension Diabetes mellitus HLD Chronic nicotine disorder Obstructive sleep apnea Polysubstance abuse with tobacco, cocaine and alcohol Fatty Liver Morbid obese, BMI 39.9 INTERVAL HISTORY: 08/29/24- overnight patient became lethargic and retaining CO2 patient had to be emergently intubated due to failing BiPAP and pt refusing to keep Bipap on over night. . Patient was transferred to ICU for acute hypoxemic and hypercapnic. Initial ABG with pH of 7.20, pCO2 of 122, PO2 114. Now ABG shows a pH of 7.53, pCO2 of 49, PO2 of 68, bicarb of 40.4 with ventilator settings of assist control volume control FiO2 of 60% and PEEP of eight, respiratory rate of 20 and tidal volume of 500. WBCs are normal, H&H similar to yesterday platelet count is 127 K. chemistries sodium is 150 potassium is 3.5 carbon dioxide of 43 BUN of 20 creatinine of 0.4 glucose of 186 mg/dL. On chest x-ray mild bilateral pulmonary infiltrates are seen may be related to mild pulmonary vascular congestion with possible superimposed pneumonitis. We will continue mechanical ventilation support. Patient has previous multiple visits to the hospital with intubation. He has failed extubation and I spoke to his brother who is his POA and discu and discussed with him the possibility of tracheostomy and PEG tube placement due to advanced COPD. As per brother he is going to talk it over with more family and think about the decision to go through with PEG and trach. Fow now we will optimize oxygenation and when we have and FiO2 requirement of less than 50% and a PEEP of 5-6, then we may consult general surgery for trach and PEG if in agreement with family/pt. 08/30/2024: At the time of my evaluation, the patient is lying in bed. The blood pressure trend is soft and heart rate in the 50s with respiratory rates in the 20s. He continues intubated and mechanically vented. ABG today showed a pH of 7.55, pCO2 39, PO2 57.6 NaHCO3 of 33.3. The patient remains on ACVC mode FiO2 30% tidal volume of 500 and a PEEP of 8. Vital signs showed soft blood pressure readings 94/55, heart rate 53 and a respiratory rate of 23. I&Os showed a total voided urine of 1200 with a positive balance of 847.0. Laboratory data showed a WBC of 8.5, H&H 11.4/37.2 , MCV 98.2 and a MCH of 30.1 and a platelet count of 122. Chemistry panel showed no electrolyte derangement. CO2 of 38, BUN 22, creatinine of 0.5 and a GFR of 116. No imaging was obtained today. 08/31/2024: At the time of my evaluation, the patient is lying in bed. He re mich intubated currently on CPAP mode in attempt to wean off the vent. ABGs today showed pH of 7.47, pCO2 41, PO2 65.5, HC03 of 28.9. All sedatives have been turned off. Vital signs show normotension, but the patient is tachypneic in the 40s. Laboratory data today showed no major derangements on CBC and Chemistry panel. Urine total [id number] out with a + balance of 145.5. No new microbiology data for review. Chest x-ray still showing pulmonary infiltrates and vascular congestion. No acute events reported overnight. 09/01/2024: At the time of my evaluation, the patient is lying in bed. The staff nurse reports no acute events overnight. The patient was placed on CPAP mode 5/5, 30% pulling volumes of 500. Vital signs are currently showing blood pressure of 133/97, pulse of 54 and a respiratory rate of 22 with a pulse oximeter of 96%. Laboratory data showed no major derangement. No microbiology data for review today. No imaging for review today. No new complaint. 09/02/2024: At the time of my evaluation, the patient is lying in bed. He remains intubated and on mechanical ventilator support. Vital signs today are generally stable. I and O showing a urine total output of 1400 mL and a positive balance of 44. Laboratory data today showed a WBC of 9.4, with a neutrophil count of 88.4 % and a lymphocyte count of 5.4% hemoglobin of 11.0, hematocrit of 35.0 and a platelet count of 102. Chemistry panel showed a drop in sodium to 131, potassium of 4.0, chloride of 99, CO2 of 28, BUN of 18 and a creatinine of 0.4. No imaging for review today. No new complaint. 09/03/2024: At the time of my evaluation, the patient was lying in bed. He is awake, alert and oriented. Patient is able to follow commands, but is not verbally interactive as he remains intubated. Patient currently on AC mode with rate of 16, peep of 5, tidal volume 500 and FiO2 30%. Oxygen saturation is in the high 90s. He is currently on monitor, normotensive, not on any pressors, map of 99. Heart rate is maintained in the 80s. He currently denies any chest pain. There is no report of nausea, vomiting or diarrhea. On I's and O's show a intake of 2360.0 , a output 2300 and a negative balance of + 60. Functional licona, the patient is functional. On review of labs today, there was an increase in WBC to 11.6. Chemistry panel showed no major concern. No microbiology, pathology for review. No repeat chest x-ray for review. The staff nurse reports no acute events overnight. No other complaint. 09/04/2024: At the time of my evaluation, the patient was lying in bed. He is awake, alert and oriented. Patient is able to follow commands, but is not verbally interactive as he remains intubated. Patient currently on AC mode with rate of 16, peep of 5, tidal volume 500 and FiO2 30%. Oxygen saturation is in the high 90s. He is currently on monitor, normotensive, not on any pressors, map of 99. Heart rate is maintained in the 80s. He currently denies any chest pain. There is no report of nausea, vomiting or diarrhea. On I's and O's show a intake of 1677.0 , a output 1200 and a balance of + 477. Functional licona, the patient is functional. On review of labs today, there was no concern on WBCs. Chemistry panel showed no major concern. No microbiology, pathology for review. No repeat chest x-ray for review. The staff nurse reports no acute events overnight. No other complaint. 09/05/2024: At the time of my evaluation, the patient was lying in bed. He is awake, alert and oriented. Patient is able to follow commands, but is not verbally interactive as he remains intubated. He was being prepared for transportation down to the operating room where he will undergo trach and PEG creation. Oxygen saturation is in the high 90s. He is currently on monitor, normotensive, not on any pressors. Heart rate is maintained in the 50s. He currently denies any chest pain. There is no report of nausea, vomiting or diarrhea. On I's and O's show a intake of 1642.0 , a output 1600 and a balance of + 42.0. Functional licona, the patient is functional. On review of labs today, there was no concern on WBCs. Chemistry panel showed no major concern. No microbiology, pathology for review. No repeat chest x-ray for review. The staff nurse reports no acute events overnight. No other complaint. 09/06/24- The patient is awake alert following commands. Day 1. Status post trach and PEG placement. He is tolerating feedings well saturating 98% with 30% FiO2. Tolerating CPAP trials this morning. Patient is hemodynamically stable. Patient denies any pain at this time. Urine output is 1 L with a balance of +643 mL. Patient had one bowel movement. On laboratory WBCs 11.1 likely reacti ve from procedure yesterday. H&H similar to yesterday 12.2/37.6 neutrophils 88.2 decreasing. Chemistry kidneys are doing well creatinine of 0.4 with a GFR of 124 glucose 166 mg/dL otherwise unremarkable. On chest x-ray tracheostomy tube placement without evidence of complications. Lungs are clear. There is no vascular congestion. There is no evidence of pneumothorax. Right-sided PICC line remains in place. Mild cardiomegaly. PT ordered for eval and treatment. Case management for DC planning to LTAC. 09/07/24- the patient is awake alert and oriented x3. He is hemodynamically stable and afebrile. Currently on spontaneous breathing trials with CPAP via trach and tolerating it well. Overnight patient had multiple loose stools as per RN. Stopped MiraLax daily and we will leave it p.r.n. constipation. Started daily probiotics via PEG. Urine output 1.3 L with a balance of +219ml. No new labs or images for this morning. Patient denies any chest pain, shortness of breath or palpitations. He does report multiple episodes of loose stools overnight. He has been tolerating his feeding with no nausea or vomiting. Case management working on LTAC placement. REVIEW OF SYSTEMS: unable to perform due to trach, PHYSICAL EXAM: GENERAL: Status post tracheostomy awake alert following commands. HEENT: Sclera non icteric, moist mucosa NECK: Short neck, no JVD, trachea midline LUNGS: Clear to all lobes bilaterally,. No wheezes HEART: Regular rate and rhythm. Normal S1 and S2, without murmurs ABD: Abdomen obese firm, nontender. Bowel sounds present EXT: No clubbing cyanosis or edema NEURO: Awake alert following commands GCS of 15. No focal deficits. Vital Signs (last 8hr) Date Time Temp Pulse Resp B/P (MAP) Pulse Ox O2 Delivery O2 Flow Rate FiO2 09/07/24 07:01 65 30 09/07/24 06:40 71 21 09/07/24 06:00 71 20 134/63 96 09/07/24 05:00 77 62 119/73 95 09/07/24 04:11 65 30 09/07/24 04:00 73 20 123/70 93 09/07/24 04:00 98 Ventilator+ 30 09/07/24 04:00 30 09/07/24 03:24 99.3 09/07/24 03:00 68 19 125/70 95 09/07/24 02:00 62 16 117/77 96 09/07/24 01:55 66 30 09/07/24 01:00 67 16 118/61 96 LABS: Hematology Labs: Test 09/06/24 03:54 09/05/24 12:05 Range/Units White Blood Count 11.1 H 4.8-10.8 K/uL Red Blood Count 4.04 L 4.50-6.20 MIL/uL Hemoglobin 12.2 L 14.0-18.0 g/dL Hematocrit 37.6 L 42-54 % Mean Corpuscular Volume 93.1 79-99 fL Mean Corpuscular Hemoglobin 30.2 27.0-33.0 pg Mean Corpuscular Hemoglobin Concent 32.4 32.0-36.0 g/dL Red Cell Distribution Width 13.3 11.0-15.5 % Platelet Count 134 130-400 K/uL Mean Platelet Volume 10.4 7.5-10.5 fL Immature Granulocyte % (Auto) 1.6 H 0-1 % Neutrophils (%) (Auto) 88.2 H 40.0-77.0 % Lymphocytes (%) (Auto) 4.0 L 21.0-51.0 % Monocytes (%) (Auto) 6.0 3.0-13.0 % Eosinophils (%) (Auto) 0.0 0.0-8.0 % Basophils (%) (Auto) 0.2 0.0-5.0 % Neutrophils # (Auto) 9.8 H 1.8-7.7 K/uL Lymphocytes # (Auto) 0.4 L 1.0-4.8 K/uL Monocytes # (Auto) 0.7 0.1-1.0 K/uL Eosinophils # (Auto) 0.00 0.00-0.70 K/uL Basophils # (Auto) 0.02 0.00-0.20 K/uL Absolute Immature Granulocyte (auto 0.18 0-1 K/uL Nucleated Red Blood Cells 0.0 0.0-0.19 % Segmented Neutrophils % 89 H 40-70 % Band Neutrophils % 1 0-2 % Lymphocytes % (Manual) 7 L 22-44 % Monocytes % (Manual) 3 2-9 % Differential Comment MANUAL DIFFERENTIAL White Cell Morphology Comment CONSISTENT W/DIFF Platelet Morphology Comment ADEQUATE Red Blood Cell Morphology ANISO 1+ Chemistry Labs: Test 09/07/24 05:46 09/06/24 03:54 Range/Units Whole Blood Glucose 90 70-110 MG/DL Sodium Level 139 136-145 mmol/L Potassium Level 3.7 3.5-5.1 mmol/L Chloride Level 104 101-111 mmol/L Carbon Dioxide Level 29 21-32 mmol/L Blood Urea Nitrogen 18 7-18 mg/dL Creatinine 0.4 L 0.5-1.3 mg/dL Glomerular Filtration Rate Calc 124 >90 mL/min Random Glucose 166 H 70-105 mg/dL Total Calcium 8.5 8.5-10.1 mg/dL Coagulation Labs: Test 09/05/24 10:30 Range/Units Prothrombin Time 10.8 9.6-11.6 SEC Prothromb Time International Ratio 0.96 0.85-1.15 DIAGNOSTICS / RADIOLOGY RESULTS: [ ] PLAN Maintain O2 sats above 92% Continue duo Atrovent q.6 hours p.r.n. dailt SBT's Wean to Trach collar if passess SBT's Continue GI and DVT prophylaxis PT to eval and treat Wean o2 as permitted. no need for daily CXR wean steroids Continue IV ABX with Cefepim and Doxy Arrange outpatient pulmonology referral for sleep study, PFT and follow-up management upon discharge CM fo DC Panning. recommend LTAC NEURO: Minimize central acting medications as possible. Fall Precautions. Well lighted room through the day and minimize interruptions through the night to prevent acute delirium. PULMONARY: Supplemental 02 as needed Titrate Fio2 to keep Spo2 > or = 90% DuoNebs and CPT as needed Ventilator settings ACVC: Tv 500, RR 20, FIO2 of 60% and peep of 8 adjust as needed per ABG's IS hourly while awake for pulmonary hygiene went off vent CARDIOVASCULAR: Follow hemodynamics. Titrate vasopressor to keep MAP >65 or systolic blood pressure >95mmHg if needed. Drips: None LINES: PICC line GI & NUTRITION: Continue nutritional support Aspirations precautions Prokinetic agents and laxatives as needed No bowel movements documented. Mechanical soft diet KIDNEYS & ELECTROLYTES: Strict monitoring of intake and output Daily weights Avoid nephrotoxic agents Monitor electrolytes and replace as needed Goal urine output of 30mL/hr or 0.5mL/kg/hr ENDOCRINE: Maintain blood glucose between 100-180 at all times. Insulin sliding scale for blood glucose management INFECTIOUS DISEASE: Trend temperature. Patricio-culture if febrile. Currently afebrile Micro: Blood cultures negative Urine culture negative Respiratory cultures Sputum grew MSSA, patient completed antibiotic course Influenza B negative (patient is positive for influenza A) COVID-19 negative Antibiotics: Cefepime and doxycycline HEMATOLOGY & COAGULATION: Monitor H&H. Keep Hgb > 7 Transfuse 1 unit of PRBC for Hgb < 7 Transfuse 1 pack of platelets of platelets < 20, 000 Watch for any signs and symptoms of bleeding SKIN: Pressure ulcer prevention per facility protocol Rehab: PT/OT out of bed to chair. Prophylaxis: GI: Protonix 30 mg IV push bid DVT: Lovenox Code Status: Full Resuscitation Disposition: ICU Other: Total patient care time exceeds 45 minutes excluding all procedures. Case was discussed and seen with my supervising physician. The above plan was formulated and agreed upon. SHEY RENAE [facility] Sep 07, 2024 08:58
[2024-09-07] MEDS ORDERED: polyETHYLene GLYCol 3350 17 GM POWD.PACK PO PRN (09:00)
[2024-09-07] MEDS: LACTOBACILLUS RHAMNOSUS GG 1 EACH CAP.SPRINK PO SCH (09:40)
[2024-09-07] MEDS: IpraTROPium/alBUTERol SULFATE 3 ML SOLUTION IH ONE (10:51)
--- NOTE | 2024-09-07 11:43 | NUR ---
DC PLAN PATIENT ACCEPTED TO [facility] REPORT [phone] FAX [phone]. MOT AND EMS FILLED FLAGGED IN CHART. NURSE NOTIFIED. Addendum: 09/07/24 at 1144 by BRANDIN WORKMAN RN CM Amended: Links added.
[2024-09-07] MEDS: LIDOCAINE 4% ADH..PATCH TP ONE (11:50)
--- NOTE | 2024-09-07 12:00 | NUR ---
per IRMA xavier RN pt ok to d\c pt to [facility] today. per [facility] rep she will contact CM , pt will probably go to LTAC today once cleared. garcía lima aware. per garcía Harris dr. [facility]
--- NOTE | 2024-09-07 13:20 | NUR ---
DC PLAN VISITED WITH PATIENT LET PATIENT AND FAMILY KNOW OF ACCEPTANCE. SPOKE TO DR. MARKHAM SAID OKAY TO DC CONTINUE CURRENT MEDICATIONS. SIGNED MOT. CM LET NURSE KNOW. LET LEAD INJECTION MOLD TECHNICIAN KNOW OF MOT IN CHART. EMS FAXED AND FLAGGED. Addendum: 09/07/24 at 1325 by BRANDIN WORKMAN RN CM Amended: Links added.
--- NOTE | 2024-09-07 15:03 | NUR ---
attempted to call report to [facility], per [facility] staff, nurse mary jane to call back once he is available. #[phone].
--- NOTE | 2024-09-07 15:23 | PN ---
INFECTIOUS DISEASE PROGRESS NOTE Date of Service: Sep 07, 2024 SUBJECTIVE: Patient was seen and examined at bedside in the ICU room 206. Patient is status post tracheostomy and percutaneous endoscopic gastrostomy tube placement on 09/05/2024. Continues on PEG tube feedings with Vital AF and tolerating well. Abdomen is soft and no reports of nausea or vomiting. Continues on cefepime and doxycycline IV. Patient was approved to [facility] and being discharged today. PHYSICAL EXAM EYES: Anicteric. Pupils equal and reactive. HENT: No oral thrush seen, moist Oral mucosa. NECK: Supple, no JVD or thyromegaly. RESPIRATORY: Status post tracheostomy CARDIOVASCULAR: S1, S2 regular. No murmur heard. ABDOMEN: Soft, non tender, bowel sounds present, no organomegaly. Status post PEG tube placement. CENTRAL NERVOUS SYSTEM: Awake, alert, oriented x 3. SKIN: No rashes, no swelling. LYMPHATICS: No peripheral lymphadenopathy. MUSCULOSKELETAL: No joint swelling, erythema or tenderness. EXTREMITIES: No cyanosis or clubbing. BACK: No deformity, no pressure ulcer. GENITOURINARY: No dysuria or hematuria. Michele catheter. Vital Sign (Last 12 Hours) 09/07/24 09/07/24 09/07/24 09/07/24 03:24 04:00 04:00 04:00 Temp 99.3 Pulse 73 Resp 20 B/P (MAP) 123/70 Pulse Ox 98 93 O2 Delivery Ventilator+ FiO2 30 30 09/07/24 09/07/24 09/07/24 09/07/24 04:11 05:00 06:00 06:40 Pulse 65 77 71 71 Resp 62 20 21 B/P (MAP) 119/73 134/63 Pulse Ox 95 96 FiO2 30 09/07/24 09/07/24 09/07/24 09/07/24 07:01 07:16 07:30 08:00 Pulse 65 71 72 Resp 18 19 B/P (MAP) 120/74 131/71 Pulse Ox 97 99 97 O2 Delivery Ventilator Ventilator+ Ventilator FiO2 30 30 30 30 09/07/24 09/07/24 09/07/24 09/07/24 08:00 09:00 09:45 10:00 Temp 98.4 Pulse 64 85 73 Resp 16 16 B/P (MAP) 114/59 127/69 Pulse Ox 84 100 O2 Delivery Ventilator Ventilator FiO2 30 30 30 09/07/24 09/07/24 09/07/24 09/07/24 10:59 11:18 12:00 12:00 Temp 98.8 Pulse 70 80 Resp 22 16 B/P (MAP) 114/69 Pulse Ox 98 100 O2 Delivery Ventilator Ventilator+ FiO2 30 40 30 09/07/24 09/07/24 09/07/24 09/07/24 12:00 13:00 13:16 14:00 Pulse 81 75 83 85 Resp 21 16 16 B/P (MAP) 125/71 118/65 122/68 Pulse Ox 94 95 99 O2 Delivery Ventilator Ventilator Ventilator FiO2 30 30 30 09/07/24 14:36 Pulse 80 FiO2 30 Intake & Output (last 24hrs) 09/06/24 09/06/24 09/07/24 15:00 23:00 07:00 Intake Total 284.0 ml 1290.0 ml Output Total 1300 ml Balance 284.0 ml -10.0 ml LABS: Laboratory: Test 09/07/24 11:01 09/06/24 03:54 Range/Units Whole Blood Glucose 144 #H 70-110 MG/DL White Blood Count 11.1 H 4.8-10.8 K/uL Red Blood Count 4.04 L 4.50-6.20 MIL/uL Hemoglobin 12.2 L 14.0-18.0 g/dL Hematocrit 37.6 L 42-54 % Mean Corpuscular Volume 93.1 79-99 fL Mean Corpuscular Hemoglobin 30.2 27.0-33.0 pg Mean Corpuscular Hemoglobin Concent 32.4 32.0-36.0 g/dL Red Cell Distribution Width 13.3 11.0-15.5 % Platelet Count 134 130-400 K/uL Mean Platelet Volume 10.4 7.5-10.5 fL Immature Granulocyte % (Auto) 1.6 H 0-1 % Neutrophils (%) (Auto) 88.2 H 40.0-77.0 % Lymphocytes (%) (Auto) 4.0 L 21.0-51.0 % Monocytes (%) (Auto) 6.0 3.0-13.0 % Eosinophils (%) (Auto) 0.0 0.0-8.0 % Basophils (%) (Auto) 0.2 0.0-5.0 % Neutrophils # (Auto) 9.8 H 1.8-7.7 K/uL Lymphocytes # (Auto) 0.4 L 1.0-4.8 K/uL Monocytes # (Auto) 0.7 0.1-1.0 K/uL Eosinophils # (Auto) 0.00 0.00-0.70 K/uL Basophils # (Auto) 0.02 0.00-0.20 K/uL Absolute Immature Granulocyte (auto 0.18 0-1 K/uL Nucleated Red Blood Cells 0.0 0.0-0.19 % Sodium Level 139 136-145 mmol/L Potassium Level 3.7 3.5-5.1 mmol/L Chloride Level 104 101-111 mmol/L Carbon Dioxide Level 29 21-32 mmol/L Blood Urea Nitrogen 18 7-18 mg/dL Creatinine 0.4 L 0.5-1.3 mg/dL Glomerular Filtration Rate Calc 124 >90 mL/min Random Glucose 166 H 70-105 mg/dL Total Calcium 8.5 8.5-10.1 mg/dL ASSESSMENT: Acute on chronic hypoxic and hypercapnic respiratory failure, requiring intubation, s/p tracheostomy on 09/05/2024. Gram-positive pneumonia. Oropharyngeal dysphagia secondary to prolonged intubation, status post PEG tube placement on 09/05/2024. Staphylococcus bacteremia, which is a contaminant. Infection with Methicillin sensitive Staphylococcus aureus. Leukocytosis. Influenza Viral infection POA. COPD exacerbation. Diabetes mellitus. Polysubstance abuse. PLAN: Continue doxycycline IV. Continue cefepime IV. Continue critical care to support. Continue ventilatory support. Continue steroids. Continue GI prophylaxis. Continue monitoring glucose levels. We will monitor electrolytes. Patient was approved to [facility] and being discharge. This case was reviewed and discussed with my supervising physician and the above assessment and plan was formulated and agreed upon. ATTESTATION BY PHYSICIAN I have seen and examined the patient. I reviewed the documentation, medical decision making, and treatment plan as noted by the mid-level provider above. I agree with the findings and plan of care. MERI HOFFMAN MD, MIRTA L [employer] WORKING INSPECTOR Sep 07, 2024 15:23
--- NOTE | 2024-09-07 16:00 | NUR ---
report given to nurse leopoldo rosado, updated on plan of care with history of pt since being admitted. vent setting given while pt on AC, cpap settings. pt has been on cpap since 944 with no issues, tolerating well. PT sat to edge of bed and pt tolerated 2hrs. bm 09/07. gave next due meds and latest v/s. shiley trach 8.0 fr. peg tube 20 fr with TF settings given, formula vital af 1.2 with h2o flush frequency. Addendum: 09/07/24 at 1720 by TRAM ORTA RN RN right picc in place, patent.
--- NOTE | 2024-09-07 16:15 | NUR ---
[facility] called and notifed pt is a vent transfer to [facility]. gave a/c mode setting and cpap settings. pt to go on a/c mode once transferred for pt safety. [facility]
--- NOTE | 2024-09-07 16:47 | NUR ---
pt was given and explained all discharge paperwork, all questions answered. signed paperwork. pt is alert, awake and oriented to person place and time. education given on trach and peg, aspiration precautions, and ADLs as tolerated. family at bedside.
--- NOTE | 2024-09-07 17:30 | NUR ---
report given to jhoan, updated on plan of care. pt on 2 LNC v/s stable. Addendum: 09/07/24 at 1836 by TRAM ORTA RN RN wrong pt. disregard.
--- NOTE | 2024-09-07 18:59 | NUR ---
ems arrived for pt. a/c vent settings given. pt was transferred to ems vent with no issues satting 96%.
--- NOTE | 2024-09-07 19:28 | DS ---
[facility] DISCHARGE SUMMARY Date Patient Seen: Sep 07, 2024 Time of Visit: 19:10 Supervising Physician: Oniel Dasilva MD Supervising Physician: Oniel Dasilva MD Primary Care Physician: [Dr. Zafar Harris ] Outpatient Specialists: [ ] Inpatient Consults: PROBLEM LIST: Acute on chronic hypoxemic and hypercapnic respiratory reintubated 08/29/24, Failed weaning trials. S/P Trach and PEG on 09/05/24 Severe COPD/asthma/emphysema recurrent exacerbation-POA Septic Shock POA requiring PRESSORS, resolved 2/2 Gram-positive cocci bacteremia, POA, on repeat neg BC (likely contamination) Acute on chronic hypoxic hypercapnic respiratory failure requiring vent support- POA Intubated POA, extubated 08/22/24 Elevated D-Dimer Neg DVT, Well's score for PE 4.5 (moderate risk) pending CTA to r/o PE Viral community-acquired pneumonia + Influenza A W/ superimposed bacterial Pneumonia -POA 2nd to MSSA Hyponatremia Hypochloremia-POA Hypokalemia corrected Primary hypertension Diabetes mellitus HLD Chronic nicotine disorder Obstructive sleep apnea Polysubstance abuse with tobacco, cocaine and alcohol Fatty Liver Morbid obese, BMI 39.9 HOSPITAL COURSE: HPI 08/12/24- Patient is unable to participate on the HPI due to intubated and sedated. Per ED notes:"The patient is a 59-year-old male with a history of COPD on chronic o2, emphysema, asthma, everyday smoker, diabetes and hypertension who presents to the emergency department with worsening shortness of breath onset 2 days ago. Patient reports occasional productive cough. Denies any fe vers.Denies chest pain. Patient reports he was just discharged two days ago." According to the girlfriend at bedside, patient was doing well in the morning and in the afternoon until about 6:00 p.m. prior to admission when he started getting restless and having a lot of coughing and phlegm. Despite BiPAP treatment at the ED, he was not able to tolerate and blood gas continues to decline leading to intubation. At the time of my admission, patient is on propofol and Versed. Current vent setting was vT: 450, FiO2 80%, rate of 26, PEEP 7. He is still smoking up to this point. Physical assessment reveals diminished lung sounds across lung campa. Goals of care were discussed with the patient's girlfriend verbalizes understanding and agreement. Patient with septic shock POA requiring pressors that resolved secondary to Gram-positive cocci bacteremia and viral community-acquired pneumonia with influenza a with superimposed bacterial pneumonia MSSA. Pt was weaned off pressors and was covered with IV antibiotics. He was successfully extubated on 08/22/24. Patient was downgraded to med surge with tele on 08/23/24 with impro vement on BiPAP at night and p.r.n.. Shortly after patient started becoming hypercapnic again and failing BiPAP treatment. After becoming lethargic, hypoxemic and hypercapnic patient was emergently reintubated again and transferred back to the ICU on 08/29/24. Be initially required high PEEP of eight and a antibiotics completed but were restarted due to recurrent pneumoniae. Hypercapnia corrected likely to baseline but oxygenation remained low with PF ratio not good enough for extubation. On 09/02/24 general surgery was consulted for SBT's in need of trach and PEG. Patient and family in agreement and he underwent tracheostomy and PEG tube placement on 09/05/24. Tube feedings were started via PEG which he tolerated well. He is not tolerating CPAP trials via trach but continues on antibiotics with cefepime and doxy IV. ID has been following and they recommend continuation of IV antibiotics. There is much improvement, currently working with physical therapy. We recommended LTAC to continue to wean off vent and IV antibiotics with physical therapy. Case management was able to arrange that for today and patient and family in agreem ent. He has been afebrile and hemodynamically stable. Patient is in good spirits and stable for discharge to LTAC at [facility]. ACTIVE PROBLEM LIST FOR THE HOSPITALIZATION: Acute on chronic hypoxemic and hypercapnic respiratory reintubated 08/29/24, Failed weaning trials. S/P Trach and PEG on 09/05/24 Severe COPD/asthma/emphysema recurrent exacerbation-POA Septic Shock POA requiring PRESSORS, resolved 2/2 Gram-positive cocci bacteremia, POA, on repeat neg BC (likely contamination) Acute on chronic hypoxic hypercapnic respiratory failure requiring vent support- POA Intubated POA, extubated 08/22/24 Elevated D-Dimer Neg DVT, Well's score for PE 4.5 (moderate risk) pending CTA to r/o PE Viral community-acquired pneumonia + Influenza A W/ superimposed bacterial Pneumonia -POA 2nd to MSSA Hyponatremia Hypochloremia-POA Hypokalemia corrected Primary hypertension Diabetes mellitus HLD Chronic nicotine disorder Obstructive sleep apnea Polysubstance abuse with tobacco, cocaine and alcohol Fatty Liver Morbid obese, BMI 39.9 CHRONIC PROBLEMS: continue previous management per PCP unless otherwise indicated 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 Continue cefepime IV. Nutritional f/u Note: Chart, meds, and labs Reviewed. Pt remains intubated, on vent and is pending PEG placement. Currently receiving vital af @50ml/hr current TF provides 1440kcal, 72gm pro 960ml total free h20. Prostat provides extra 200kcal and 30gm pro Abnormal nutrition related labs: Nutrition-related Meds: Wt Status: current wt 102kg with down 7.9kg from admit wt on 08/12, though fluid shifts may contribute. No reported n/v, or diarrhea. Recommend: -continue current tF as tolerated -Once PEG is placed, reassess TF regimen per updated wt and clinical status. -Monitor feeding tolerance, %, wt, and labs -If No BM >3days consider bowel stimulant. - Please notify RD if additional nutrition concerns arise. PROCEDURES: as mentioned above. Signed PATIENT: CHRISTINE CURTIS MR#: [id number] : 1965 SEX: M AGE: 59 LOCATION: 2CV ORDER 25 STATUS: ADM IN REPORT#: [id number] SERVICE 23 REASON: Elevated d-dimmer concern for BLE DVT ORDERING PHYSICIAN: MONAE FRANCIS NP PROCEDURE: VENOUS ODILIA - US VENOUS DOPPLER BILATERAL US VENOUS DOPPLER BILATERAL HISTORY: Elevated d-dimer COMPARISON: None TECHNIQUE: Bilateral lower extremity venous Doppler ultrasound study was performed. FINDINGS: The common femoral, femoral, popliteal, and posterior tibial veins are visualized. Normal flow with augmentation and compressibilities are demonstrated. The greater saphenous veins are also seen and grossly patent. IMPRESSION: 1. No evidence of deep venous thrombosis is seen. DICTATED BY: BLAYNE GLORIA MD DATE: 09/01/24 1113 ELECTRONICALLY SIGNED BY: BLAYNE GLORIA MD DATE: 09/01/24 1116 IMAGING REPORT Signed PATIENT: CHRISTINE CURTIS MR#: [id number] : 1965 SEX: M AGE: 59 LOCATION: 2CH ORDER 0231 STATUS: ADM IN REPORT#: [id number] SERVICE 0700 REASON: hypoxia ORDERING PHYSICIAN: RENNY FU PROCEDURE: ECHO CMP - ECHO 2-D COMPLETE APPROVED REPORT EXAM: Two-dimensional and M-mode echocardiogram with Doppler and color Doppler. INDICATION ICD: hypoxia 2D Dimensions RVDd 4.6 cm LVEF(%) 52.3 (>50%) LVED Vol(simp.) 147.0 mL IVSd 1.0 (0.7-1.1cm) FS(%) 27 % LVES Vol(simp.) 60.1 mL LVDd 4.5 (3.8-5.6cm) LA (2D) 4.0 (1.6-4.0cm) LVEF(%, simp.) 60 % PWd 1.3 (0.7-1.1cm) Ao Root(2D) 3.3 (2.0-3.7cm) LA ESV INDEX (4CH) 35.50 mL/m2 IVSs 1.1 cm LA ESV INDEX (2CH) 52.30 mL/m2 LVDs 3.3 (2.5-4.0cm) LA ESV INDEX (BP) 43.60 mL/m2 PWs 3.4 cm M-Mode Dimensions LA (MM) 5.8 (1.6-4.0cm) Ao Root(MM) 3.4 (2.0-3.7cm) Aortic Valve AoV VTI 0.4 m Ao Mean GR 7.0 mmHg LVOT VTI 0.28 m Mitral Valve MV E Vmax 71.3 cm/s DECEL Time 285 ms MV A Vmax 72.3 cm/s P 1/2 T 114 ms E/A ratio 1.0 MVA (PHT) 1.9 cm2 TDI E/E' Medial 11.5 E/E' Lateral 6.5 Medial E' Peak V 6.20 cm/s Lateral E' Peak V 10.90 cm/s Left Ventricle The left ventricle is mildly dilated. There is normal LV segmental wall motion. There is normal left ventricular wall thickness. LVEF is 60-65%. The left ventricular diastolic function is normal. Right Ventricle The right ventricle is mildly dilated. Right ventricular systolic function is mildly reduced. Atria The left atrium is mildly dilated. The right atrium is mildly dilated. Aortic Valve The aortic valve is normal in structure and function. No aortic regurgitation is present. There is no aortic valvular stenosis. Mitral Valve The mitral valve is normal in structure and function. There is no mitral valve regurgitation noted. There is no mitral valve stenosis. Tricuspid Valve The tricuspid valve is normal in structure and function. There is no tricuspid valve regurgitation noted. Pulmonic Valve The pulmonary valve is normal in structure and function. There is no pulmonic valvular regurgitation. Great Vessels The aortic root is normal in size. The IVC is normal in size and collapses >50% with inspiration. Pericardium No pericardial effusion. Conclusion LVEF is 60-65%. DICTATED BY: RENNY FUENTES MD DATE: 08/12/24819 ELECTRONICALLY SIGNED BY: RENNY FUENTES MD DATE: 08/12/24 1157 IMAGING REPORT Signed PATIENT: CHRISTINE CURTIS MR#: [id number] : 1965 SEX: M AGE: 59 LOCATION: 2BH ORDER 2300 STATUS: ADM IN REPORT#: [id number] SERVICE 0600 REASON: PNA ORDERING PHYSICIAN: MONAE FRANCIS NP PROCEDURE: CXR1VW - CHEST 1VW CHEST 1VW REASON: PNA COMPARISON: 08/31/2024 FINDINGS: There is mild cardiomegaly. Lungs are clear. There is no vascular congestion. Tracheostomy tube has been placed. There is no evidence of pneumothorax. Right-sided PICC line remains in place. NG has been removed. IMPRESSION: 1. Tracheostomy tube placement without evidence of complication. DICTATED BY: ANDREI GOSS MD DATE: 09/06/24 0853 ELECTRONICALLY SIGNED BY: ANDREI GOSS MD DATE: 09/06/24 0856 DISCHARGE MEDICATIONS: See EMAR paper sent to [facility]. Pt hemodynamically stable and afebrile at time of discharge. PCP notified of patients admission, hospital course and discharge. PHYSICAL EXAM: GENERAL: Status post tracheostomy awake alert following commands. HEENT: Sclera non icteric, moist mucosa NECK: Short neck, no JVD, trachea midline LUNGS: Clear to all lobes bilaterally,. No wheezes HEART: Regular rate and rhythm. Normal S1 and S2, without murmurs ABD: Abdomen obese firm, nontender. Bowel sounds present EXT: No clubbing cyanosis or edema NEURO: Awake alert following commands GCS of 15. No focal deficits. FOLLOW-UP: Follow-up with PCP in 2-3 days RECOMMENDATIONS: See Discharge Instructions This case was seen and discussed with my supervising physician. More than 30 minutes spent on discharge process, including evaluation of the patient, discussion with nursing staff, medication reconciliation and follow-up appointments SHEY RENAE Sep 07, 2024 19:28
[2024-09-07] MEDS ORDERED: INSULIN GLARgine 100 UNITS/ML 10 ML VIAL SQ SCH (21:00)
[2024-09-08] MEDS ORDERED: LIDOCAINE 4% ADH..PATCH TP SCH (09:00)
== END 2024-09-07 18:50 | DRG 4 ==
LOC: EDH 23:35 → EDHIP 08-12 02:12 → 2CH 08-12 03:03 → 3AH 08-24 05:52 → 2CV 08-29 05:52 → 2BH 09-05 04:38
PROVIDERS: ADMIT Internal Medicine Critical Care Medicine; ATTEND Internal Medicine Critical Care Medicine
PROC: 5A1955Z Respiratory Ventilation, Greater than 96 Consecutive Hours (ICD-10-PCS; principal; 2024-08-12)
PROC: 0BH17EZ Insertion of Endotracheal Airway into Trachea, Via Natural or Artificial Opening (ICD-10-PCS; 2024-08-12)
PROC: 02HV33Z Insertion of Infusion Device into Superior Vena Cava, Percutaneous Approach (ICD-10-PCS; 2024-08-18)
PROC: 5A09357 Assistance with Respiratory Ventilation, Less than 24 Consecutive Hours, Continuous Positive Airway Pressure (ICD-10-PCS; 2024-08-18)
PROC: 0BH17EZ Insertion of Endotracheal Airway into Trachea, Via Natural or Artificial Opening (ICD-10-PCS; 2024-08-29)
PROC: 5A1955Z Respiratory Ventilation, Greater than 96 Consecutive Hours (ICD-10-PCS; 2024-08-29)
PROC: 0B114F4 Bypass Trachea to Cutaneous with Tracheostomy Device, Percutaneous Endoscopic Approach (ICD-10-PCS; 2024-09-05)
PROC: 0DP67UZ Removal of Feeding Device from Stomach, Via Natural or Artificial Opening (ICD-10-PCS; 2024-09-05)
PROC: 0DH63UZ Insertion of Feeding Device into Stomach, Percutaneous Approach (ICD-10-PCS; 2024-09-05)
DX: A41.89 Other specified sepsis (principal); J96.21 Acute and chronic respiratory failure with hypoxia; J96.22 Acute and chronic respiratory failure with hypercapnia; R65.21 Severe sepsis with septic shock; J10.08 Influenza due to other identified influenza virus with other specified pneumonia; J15.211 Pneumonia due to Methicillin susceptible Staphylococcus aureus; J44.1 Chronic obstructive pulmonary disease with (acute) exacerbation; E87.1 Hypo-osmolality and hyponatremia; J44.0 Chronic obstructive pulmonary disease with (acute) lower respiratory infection; J43.9 Emphysema, unspecified; E87.8 Other disorders of electrolyte and fluid balance, not elsewhere classified; E11.9 Type 2 diabetes mellitus without complications; K70.0 Alcoholic fatty liver; F14.10 Cocaine abuse, uncomplicated; E66.01 Morbid (severe) obesity due to excess calories; D64.9 Anemia, unspecified; D69.6 Thrombocytopenia, unspecified; E03.9 Hypothyroidism, unspecified; I10 Essential (primary) hypertension; E78.00 Pure hypercholesterolemia, unspecified; E87.6 Hypokalemia; K59.00 Constipation, unspecified; F17.200 Nicotine dependence, unspecified, uncomplicated; R13.12 Dysphagia, oropharyngeal phase; Z71.6 Tobacco abuse counseling; Z82.49 Family history of ischemic heart disease and other diseases of the circulatory system; Z83.3 Family history of diabetes mellitus; Z99.81 Dependence on supplemental oxygen; Z68.39 Body mass index [BMI] 39.0-39.9, adult; Z95.1 Presence of aortocoronary bypass graft; Z79.899 Other long term (current) drug therapy
CPT/HCPCS: 31500; 36415; 36556; 36600; 43246; 71045; 71250; 74018; 80048; 80053; 80202; 80305; 81001; 82330; 82435; 82550; 82803; 82947; 82948; 83036; 83605; 83735; 83880; 84100; 84132; 84145; 84295; 84443; 84484; 85018; 85025; 85027; 85378; 85610; 86850; 86900; 86901; 87040; 87071; 87086; 87186; 87205; 87426; 87635; 87804; 92610; 93005; 93306; 93970; 94002; 94003; 94640; 94660; 94664; A6250; C1751; C1894; G0378; J0456; J0612; J0692; J0696; J1171; J1265; J1450; J1650; J1815; J1940; J2250; J2270; J2405; J2470; J2704; J2919; J3010; J3360; J3475; J3480; J3490; J7030; A4215; A4600; A9900; J0690; J3370

== ENCOUNTER 2024-11-22 14:04 | Emergency (ER) | payer OTHER ==
[~2024-11-22] VITALS: Ht 165.1 cm; Wt 103.5 kg
[~2024-11-22 14:04] MED LIST changes: +ATOR10 PO; -ATOR10TA69 PO; +BACL20TA PO; -CHOL200052 PO; -DAPA10TA PO; -DILT120C12 PO; +DOXA2TAB2 PO; +ERGO500093 PO; -FLUT1BLS3 IH; -FURO40TA5 PO; +INSU3INS3 SQ; +LANS30CA55 PO; -LEVO-70 PO; -LOSA25TA41 PO; -METH4TAB3 PO; +MIDO5TAB4 PO; -NABU-141 PO; -POTA99CA PO; +PRED10TA23 PO; -PRED20B PO; -SACU1TAB PO; -THEO400T3 PO; +TRAM-543 PO
[2024-11-22 14:43] LABS: BASOPHILS # (AUTO) 0.02 K/uL (0.00-0.20); BASOPHILS % (AUTO) 0.2 % (0.0-5.0); EOSINOPHILS # (AUTO) 0.01 K/uL (0.00-0.70); EOSINOPHILS % (AUTO) 0.1 % (0.0-8.0); HEMATOCRIT 37.5 % (42-54); IMMATURE GRANULOCYTE ABSOLUTE 0.16 K/uL (0-1); LYMPHOCYTES # (AUTO) 0.5 K/uL (1.0-4.8); LYMPHOCYTES % (AUTO) 4.5 % (21.0-51.0); MEAN CORPUSCULAR HEMOGLOBIN 29.5 pg (27.0-33.0); MEAN CORPUSCULAR HGB CONC 31.2 g/dL (32.0-36.0); MEAN CORPUSCULAR VOLUME 94.7 fL (79-99); MONOCYTES # (AUTO) 0.8 K/uL (0.1-1.0); MONOCYTES % (AUTO) 6.8 % (3.0-13.0); PLATELET COUNT (AUTO) 245 K/uL (130-400); RED BLOOD CELL COUNT(AUTO) 3.96 MIL/uL (4.50-6.20); RED CELL DISTRIBUTION WIDTH 13.3 % (11.0-15.5); WHITE BLOOD COUNT (AUTO) 11.5 K/uL (4.8-10.8)
[2024-11-22 14:51] LABS: CREATININE 0.7 mg/dL (0.5-1.3); POTASSIUM 4.1 mmol/L (3.5-5.1)
[2024-11-22 14:52] LABS: INR 0.98 (0.85-1.15); PROTHROMBIN TIME 10.4 SEC (9.6-11.6)
[2024-11-22 14:53] LABS: PARTIAL THROMBOPLASTIN TIME 34.1 SEC (26.3-35.5)
[2024-11-22 14:59] LABS: AMPHET/METH SCREEN,URINE NEGATIVE (NEGATIVE); BARBITURATE SCREEN, URINE NEGATIVE (NEGATIVE); BENZODIAZEPINES SCREEN,URINE NEGATIVE (NEGATIVE); CANNABINOID SCREEN,URINE NEGATIVE (NEGATIVE); COCAINE SCREEN,URINE NEGATIVE (NEGATIVE); OPIATE SCREEN,URINE POSITIVE (NEGATIVE); PHENCYCLIDINE SCREEN,URINE NEGATIVE (NEGATIVE)
[2024-11-22 15:00] LABS: APPEARANCE,URINE TURBID (CLEAR); BILIRUBIN,URINE NEGATIVE (NEGATIVE); COLOR,URINE YELLOW (YELLOW); GLUCOSE, URINE (UA) NEGATIVE (NEGATIVE); KETONES,URINE NEGATIVE (NEGATIVE); LEUKOCYTE ESTERASE ,URINE NEGATIVE Leu/uL (NEGATIVE); NITRATE,URINE NEGATIVE (NEGATIVE); OCCULT BLOOD,URINE NEGATIVE (NEGATIVE); PH,URINE 7.5 (5.0-8.0); PROTEIN,URINE 50 mg/dL (NEGATIVE); UROBILINOGEN,URINE 6 mg/dL (0.2-1.0)
[2024-11-22 15:01] LABS: ADD UA MICROSCOPIC YES
--- NOTE | 2024-11-22 15:03 | HMCIMG ---
PORTABLE CHEST RADIOGRAPH INDICATION: SOB COMPARISON: None FINDINGS: Stable tracheostomy tube. Heart and pulmonary vascularity are slightly enlarged. No abnormal pulmonary parenchymal opacity or consolidation identified. No significant pleural effusion noted. No pneumothorax detected. IMPRESSION: Mild cardiac enlargement and mild pulmonary vascular congestion.
[2024-11-22 15:07] LABS: MUCUS,URINE FEW LPF (None Seen); UNCLASSIFIED CRYSTAL 18 /HPF (None Seen); YEAST,URINE BUDDING MOD /HPF (None Seen)
[2024-11-22 15:10] LABS: B-TYPE NATRIURETIC PEPTIDE 31 pg/mL (0-100)
--- NOTE | 2024-11-22 15:19 | ERN ---
General Chief Complaint: Shortness of Breath Stated Complaint: SOB Time Seen by MD: 14:08 Source: patient History of Present Illness Initial Comments Patient is a 59-year-old gentleman coming in complaining of multiple issues. Per patient he has been having cough shortness of breath for some time he does has a history of COPD and is on home O2. He states that along with the s hortness of breath he has been having lower back pain. No fever no chills. Allergies: Coded Allergies: Iodinated Contrast Media (Unverified Allergy, Severe, SHORTNESS OF BREATH, 02/06/21) Home Meds Reported Medications Insulin Glargine,Hum.rec.anlog (Lantus Solostar) 100 Unit/Ml (3 Ml) Insuln.pen, 15 UNIT SQ BID for 30 Days, #5 ML 0 Refills 10/16/24 Omeprazole (Omeprazole) 40 Mg Capsule.dr, 1 CAP PO DAILY for 30 Days, #30 CAP 0 Refills 10/16/24 Atorvastatin Calcium (LIPITOR) 10 Mg Tab, 1 TAB PO DAILY for 30 Days, #30 TAB 0 Refills 10/16/24 Prednisone (Prednisone) 10 Mg Tab.ds.pk, 1 TAB PO DAILY for 5 Days, #21 TAB 0 Refills 10/16/24 Montelukast Sodium (Montelukast Sodium) 10 Mg Tablet, 1 TAB PO DAILY for 30 Days, #30 TAB 0 Refills 10/16/24 Tramadol HCl/Acetaminophen (Tramadol-Acetaminophn 37.5-325) 37.5 Mg-325 Mg Tablet, 1 EACH PO Q6HPRN PRN for PAIN LEVEL 6 TO 10, TAB 10/16/24 Baclofen (Baclofen) 20 Mg Tablet, 1 TAB PO BID for 30 Days, #90 TAB 0 Refills 10/16/24 Ergocalciferol (Vitamin D2) (Vitamin D2) 1,250 Mcg (51036 Unit) Capsule, 1250 MCG PO WEEKLY, CAP 10/16/24 Doxazosin Mesylate (Doxazosin Mesylate) 2 Mg Tablet, 1 TAB PO DAILY for 30 Days, #30 TAB 0 Refills 10/16/24 Midodrine HCl (Midodrine HCl) 5 Mg Tablet, 1 TAB PO TID for 30 Days, #90 TAB 0 Refills 10/16/24 Lansoprazole (Lansoprazole) 30 Mg Capsule.dr, 1 CAP PO DAILY for 30 Days, #30 CAP 0 Refills 10/16/24 Aspirin (Aspirin EC) 81 Mg Tablet.dr, 1 TAB PO DAILY 12/25/23 Montelukast Sodium (Montelukast Sodium) 10 Mg Tablet, 10 MG PO DAILY, TAB 09/15/21 Past Medical History Past Medical History: Diabetes-Type II, GERD, High Cholesterol, Hypertension, Hepatitis Medical History Other: PNEUMONIA RECENT HX, OBESITY Past Surgical History: Other Surgical History Other: TRACH AND PEG LESS THAN 2 MONTHS AGO Family History Family History: DM, HTN Social History Social History: Smokers, Drugs, Lives with family ROS Dictation CONSTITUTIONAL: No chills, no fever, no weakness, no diaphoresis, no malaise. HEAD/FACE: No signs of trauma. EENT: No eye pain, no blurred vision, no tearing, no double vision, no ear pain, no ear discharge, no nose pain, no nasal congestion, no throat pain, no throat swelling, no mouth pain. RESPIRATORY: No cough, no orthopnea, SOB, no stridor, no wheezing. CARDIOVASCULAR: No chest pain, no edema, no palpitations, no syncope. GASTROINTESTINAL/ABDOMINAL: No abdominal pain, no constipation, no diarrhea, no nausea, no vomiting. GENITOURINARY: No abnormal discharge, no dysuria, no frequent urination, no hematuria. No complaints of pain in the genitals. MUSCULOSKELETAL: No back pain, no gout, no joint pain, no joint swelling, no muscle pain, no muscle stiffness, no neck pain. INTEGUMENTARY: No change in color, no change in hair/nails, no dryness, no lesion, no lumps, no rash. NEUROLOGICAL/PSYCH: No anxiety, not depressed, no emotional problem, no headache, no numbness, no pre-existing deficit, no history of seizures, no tremors, no weakness. HEMATOLOGIC/LYMPHATIC: Not anemic, no history of blood clots, no apparent bleeding, no bruising, glands not swollen. All Systems Negative, Except as Noted. Physical Exam Physical Exam Dictation VITAL SIGNS: Reviewed. GENERAL APPEARANCE: Alert, oriented x3, no acute distress, obese. HEAD AND FACE: Non-traumatic. EYES: PERRL, pink conjunctivas, eyelid no trauma, anterior chamber clear. EARS: Pinnas intact and no signs of trauma or erythema. Ear canals clear and n o discharge. TMs no erythema. NOSE: No discharge, no bleeding. OROPHARYNX: Mouth normal, teeth no caries, tongue pink. Pharynx clear, no erythema. Tonsils no exudates, no abscesses noted. Mucous membrane moist. NECK: Supple, non-tender, no thyromegaly, no masses, no JVD, no bruits. BREAST: Deferred. CHEST: No tenderness, no crepitus, no paradoxical movement, no retractions. LUNGS: Clear, well-ventilated, symmetric, no rales, no wheezing, no rhonchi, no stridor, good breath sounds bilaterally. HEART: Regular rate, regular rhythm, no murmur, no gallops. VASCULAR: No peripheral edema. ABDOMEN: Soft, positive bowel sounds, nondistended, no guarding, nontender, no rebound, no masses no hepatomegaly, no splenomegaly, no Horne's sign, no hernias. RECTAL: Deferred. GENITAL: Deferred. NEUROLOGICAL: Normal speech, gross motor function intact, gross sensory function intact. MUSCULOSKELETAL: Neck nontender, full range of motion, manager background, full range of motion. EXTREMITIES: Nontender, full range of motion. SKIN: Color pink, dry, no turgor, no rash, no lacerations, no abrasions, no contusions. LYMPHATICS: Deferred. Results Laboratory and Microbiology Lab and Micro Result Laboratory Tests Test 11/22/24 14:25 White Blood Count 11.5 K/uL (4.8-10.8) H Red Blood Count 3.96 MIL/uL (4.50-6.20) L Hemoglobin 11.7 g/dL (14.0-18.0) L Hematocrit 37.5 % (42-54) L Mean Corpuscular Volume 94.7 fL (79-99) Mean Corpuscular Hemoglobin 29.5 pg (27.0-33.0) Mean Corpuscular Hemoglobin Concent 31.2 g/dL (32.0-36.0) L Red Cell Distribution Width 13.3 % (11.0-15.5) Platelet Count 245 K/uL (130-400) Mean Platelet Volume 9.6 fL (7.5-10.5) Immature Granulocyte % (Auto) 1.4 % (0-1) H Neutrophils (%) (Auto) 87.0 % (40.0-77.0) H Lymphocytes (%) (Auto) 4.5 % (21.0-51.0) L Monocytes (%) (Auto) 6.8 % (3.0-13.0) Eosinophils (%) (Auto) 0.1 % (0.0-8.0) Basophils (%) (Auto) 0.2 % (0.0-5.0) Neutrophils # (Auto) 10.0 K/uL (1.8-7.7) H Lymphocytes # (Auto) 0.5 K/uL (1.0-4.8) L Monocytes # (Auto) 0.8 K/uL (0.1-1.0) Eosinophils # (Auto) 0.01 K/uL (0.00-0.70) Basophils # (Auto) 0.02 K/uL (0.00-0.20) Absolute Immature Granulocyte (auto 0.16 K/uL (0-1) Nucleated Red Blood Cells 0.0 % (0.0-0.19) White Cell Morphology Comment See comments Prothrombin Time 10.4 SEC (9.6-11.6) Prothromb Time International Ratio 0.98 (0.85-1.15) Activated Partial Thromboplast Time 34.1 SEC (26.3-35.5) Urine Color YELLOW (YELLOW) Urine Appearance TURBID (CLEAR) Urine pH 7.5 (5.0-8.0) Urine Specific [place] 1.030 (1.001-1.031) Urine Protein 50 mg/dL (NEGATIVE) H Urine Glucose (UA) NEGATIVE mg/dL (NEGATIVE) Urine Ketones NEGATIVE mg/dL (NEGATIVE) Urine Occult Blood NEGATIVE (NEGATIVE) Urine Nitrate NEGATIVE (NEGATIVE) Urine Bilirubin NEGATIVE mg/dL (NEGATIVE) Urine Urobilinogen 6 mg/dL (0.2-1.0) H Urine Leukocyte Esterase NEGATIVE Jenn/uL Urine RBC 6-10 /HPF (0-1) H Urine WBC 11-25 /HPF (0-1) H Urine Other Crystals (Auto) 18 /HPF (None Seen) Urine Bacteria None /HPF (None Seen) Urine Yeast MOD /HPF (None Seen) Sodium Level 138 mmol/L (136-145) Potassium Level 4.1 mmol/L (3.5-5.1) Chloride Level 98 mmol/L (101-111) L Carbon Dioxide Level 35 mmol/L (21-32) H Blood Urea Nitrogen 15 mg/dL (7-18) Creatinine 0.7 mg/dL (0.5-1.3) Glomerular Filtration Rate Calc 105 mL/min (>90) Random Glucose 223 mg/dL (70-105) H Total Calcium 9.4 mg/dL (8.5-10.1) Magnesium Level 2.00 mg/dL (1.80-2.40) Total Creatine Kinase 15 U/L (21-232) #L Troponin I High Sensitivity < 4 ng/L (4-75) L B-Type Natriuretic Peptide 31 pg/mL (0-100) Urine Opiates Screen POSITIVE (NEGATIVE) H Urine Barbiturates Screen NEGATIVE (NEGATIVE) Urine Phencyclidine Screen NEGATIVE (NEGATIVE) Urine Amphetamines Screen NEGATIVE (NEGATIVE) Urine Benzodiazepines Screen NEGATIVE (NEGATIVE) Urine Cocaine Screen NEGATIVE (NEGATIVE) Urine Marijuana (THC) Screen NEGATIVE (NEGATIVE) Labs Reviewed?: Yes EKG/XRAY/US/CT/MRI EKG Comment 11/22/2024 time 1422 Ventricular rate 83 Sinus rhythm [place] [address] wave elevation or depression X-RAY Comment Lumbar spine [id number] changes, scoliosis, IMAGING REPORT Signed PATIENT: CHRISTINE CURTIS MR#: [id number] : 1965 SEX: M AGE: 59 LOCATION: ED ORDER 1431 STATUS: [facility] REPORT#: [id number] SERVICE 1409 REASON: SOB ORDERING PHYSICIAN: HIMA CHAN MD PROCEDURE: CXR1VW - CHEST 1VW PORTABLE CHEST RADIOGRAPH INDICATION: SOB COMPARISON: None FINDINGS: Stable tracheostomy tube. Heart and pulmonary vascularity are slightly enlarged. No abnormal pulmonary parenchymal opacity or consolidation identified. No significant pleural effusion noted. No pneumothorax detected. IMPRESSION: Mild cardiac enlargement and mild pulmonary vascular congestion. DICTATED BY: SOFIYA TIRADO MD DATE: 11/22/24 1500 ELECTRONICALLY SIGNED BY: SOFIYA TIRADO MD DATE: 11/22/24 1503 MDM MDM: Differential diagnosis: Chronic pain, history of COPD, home O2 Rationale: Tests considered and ordered secondary to shared decision making include: Previous outside records reviewed: Old ER visits. Risk of complication and/or morbidity or mortality of patient management: None Medications-Per medication reconciliation Need for hospitalization: Patient does not meet criteria for hospitalization. Need for emergency major/minor surgery: No Patient is a 59-year-old gentleman coming in complaining of multiple issues. Patient states that he does have a history of COPD and has been having shortness of breath increased. He also states that he does use oxygen at home in his here for further evaluation. X-ray did not disclose acute findings in the lumbar area. Patient will be discharged in stable condition with a diagnosis of lumbar nausea with history of COPD and on home with O2. ED Course Orders Procedure Category Date Status Time Cbc With Differential LAB 11/22/24 Complete 14:09 Prothrombin Time With LAB 11/22/24 Complete INR 14:09 B-Type Natriuretic LAB 11/22/24 Complete Peptide 14:09 Chest 1vw RAD 11/22/24 Resulted 14:09 12 Lead Ekg Tracing- EKG 11/22/24 Logged Technical 14:09 Magnesium LAB 11/22/24 Complete 14:09 Creatine Kinase, Total LAB 11/22/24 Complete 14:09 Troponin I High LAB 11/22/24 Complete Sensitivity 14:09 Urinalysis Profile LAB 11/22/24 Complete 14:09 Partial LAB 11/22/24 Complete Thromboplastin Time 14:09 Basic Metabolic Panel LAB 11/22/24 Complete 14:09 Drug Screen Urine LAB 11/22/24 Complete 14:25 Culture Urine DORA 11/22/24 In Process 15:07 Lumbar Spine 2-3vws RAD 11/22/24 Taken 15:19 Vital Signs Date Time Temp Pulse Resp B/P (MAP) Pulse Ox O2 Delivery O2 Flow Rate FiO2 11/22/24 14:08 98.2 90 24 189/100 95 Nasal Cannula 3.0 11/22/24 14:08 98.2 90 24 189/100 95 Nasal Cannula* 3 32 DX & DISP Disposition: Discharge Departure Impression: Primary Impression: History of COPD Additional Impressions: On home O2, Lumbalgia Condition: Stable Scripts Lidocaine (Lidocaine Pain Relief) 4 % Adh..patch 1 PATCH TP DAILY for 7 Days, #7 PATCH 0 Refills Prov: HIMA CHAN MD 11/22/24 Additional Instructions: FOLLOW-UP WITH PRIMARY CARE PROVIDER IN 1 TO 2 DAYS. TAKE MEDICATIONS DIRECTED HERE IN THE EMERGENCY ROOM. OKAY TO CONTINUE HOME MEDICATIONS UNLESS OTHERWISE DISCUSSED DURING YOUR VISIT IN THE EMERGENCY ROOM TODAY. RETURN TO YOUR NEAREST EMERGENCY ROOM IF SYMPTOMS WORSEN OR IF THERE IS NO IMPROVEMENT. CALL 911 IF YOU NEED IMMEDIATE ASSISTANCE. TAKE TYLENOL [id number] NEEDED AND IF NO CONTRAINDICATIONS ARE PRESENT. INCREASE ORAL HYDRATION. A WOUND CULTURE OR URINE CULTURE WAS ORDERED HERE IN THE EMERGENCY ROOM DEPARTMENT PLEASE FOLLOW-UP WITH PRIMARY CARE PROVIDER AND ADVISE THEM TO GET REPEAT PORTS FROM OUR FACILITY. IF YOU HAD ANY NYDIA WRAP/SPLINTS THAT WERE APPLIED HERE, PLEASE DO NOT REMOVE THEM UNTIL YOU SEE YOUR PRIMARY CARE OR SPECIALTY. Referrals: Referrals: CHELSEA SHANNON MD (PCP) Time of Disposition: 16:41 HIMA CHAN MD Nov 22, 2024 15:19
[2024-11-22] MEDS ORDERED: LIDO1ADH71 TP (16:41)
[2024-11-22 16:48] VITALS: BP 112/67; PULSE 88; RESP 24; TEMP 98.3; O2SAT 94
--- NOTE | 2024-11-22 16:53 | HMCIMG ---
LUMBAR SPINE RADIOGRAPHS - 2-3 VIEWS INDICATION: Back pain COMPARISON: None FINDINGS: AP, lateral, and coned-down lateral views. Normal lordotic curvature of the lumbar spine is maintained. Five nonrib-bearing lumbar vertebral bodies are noted. No acute fracture or subluxation identified. Chronic mild L2 vertebral body compression deformity. Disc spaces are well-preserved. Multilevel mild to moderate anterior endplate ossific spurring. Multilevel mild to moderate bilateral facet disease is most present along the lower lumbar spine levels, and low-grade (7 mm) anterolisthesis of L5 upon S1. Mild calcific plaque is noted along the abdominal aortic and iliac vessel montero without aneurysmal dilation. IMPRESSION: Degenerative changes as described, without superimposed acute component.
--- NOTE | 2024-11-22 17:11 | NUR ---
dc [id number] pending wheelchair availability for pt transpo
--- NOTE | 2024-11-22 18:46 | EKG ---
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
== END 2024-11-22 16:55 | disposition home or self-care (01) ==
LOC: EDH 14:04
DX: M54.50 Low back pain, unspecified (principal); J44.9 Chronic obstructive pulmonary disease, unspecified; E11.9 Type 2 diabetes mellitus without complications; E66.9 Obesity, unspecified; E78.00 Pure hypercholesterolemia, unspecified; F17.200 Nicotine dependence, unspecified, uncomplicated; Z79.4 Long term (current) use of insulin; Z79.52 Long term (current) use of systemic steroids; Z79.82 Long term (current) use of aspirin; Z79.899 Other long term (current) drug therapy; Z91.041 Radiographic dye allergy status
CPT/HCPCS: 36415; 71045; 72100; 80048; 80305; 81001; 82550; 83735; 83880; 84484; 85025; 85610; 85730; 87086; 93005; 99285

== ENCOUNTER 2025-01-05 04:57 | Emergency (ER) | payer OTHER ==
[~2025-01-05] VITALS: Ht 165.1 cm; Wt 103.9 kg
[~2025-01-05 04:57] MED LIST changes: +LIDO1ADH71 TP
--- NOTE | 2025-01-05 05:27 | ERN ---
ED Note History of Present Illness Stated Complaint: TRACH DISLODGEMENT Chief Complaint: Other Problems Time Seen by MD: 05:04 Dictation: 59-year-old male with a past medical history of COPD, on O2 supplementation, status post tracheostomy . He was brought to the ER due to his dislodged of tracheostomy tube. States that happened about 2 hours prior arrival to the ER. The patient was trying to put it back at home but muscle unable reason why EMS was called and patient was transported to our facility. Allergies: Coded Allergies: Iodinated Contrast Media (Unverified Allergy, Severe, SHORTNESS OF BREATH, 02/06/21) Home Meds Active Scripts Lidocaine (Lidocaine Pain Relief) 4 % Adh..patch, 1 PATCH TP DAILY for 7 Days, #7 PATCH 0 Refills Prov:HIMA CHAN MD 11/22/24 Reported Medications Insulin Glargine,Hum.rec.anlog (Lantus Solostar) 100 Unit/Ml (3 Ml) Insuln.pen, 15 UNIT SQ BID for 30 Days, #5 ML 0 Refills 10/16/24 Omeprazole (Omeprazole) 40 Mg Capsule.dr, 1 CAP PO DAILY for 30 Days, #30 CAP 0 Refills 10/16/24 Atorvastatin Calcium (LIPITOR) 10 Mg Tab, 1 TAB PO DAILY for 30 Days, #30 TAB 0 Refills 10/16/24 Prednisone (Prednisone) 10 Mg Tab.ds.pk, 1 TAB PO DAILY for 5 Days, #21 TAB 0 Refills 10/16/24 Montelukast Sodium (Montelukast Sodium) 10 Mg Tablet, 1 TAB PO DAILY for 30 Days, #30 TAB 0 Refills 10/16/24 Tramadol HCl/Acetaminophen (Tramadol-Acetaminophn 37.5-325) 37.5 Mg-325 Mg Tablet, 1 EACH PO Q6HPRN PRN for PAIN LEVEL 6 TO 10, TAB 10/16/24 Baclofen (Baclofen) 20 Mg Tablet, 1 TAB PO BID for 30 Days, #90 TAB 0 Refills 10/16/24 Ergocalciferol (Vitamin D2) (Vitamin D2) 1,250 Mcg (44333 Unit) Capsule, 1250 MCG PO WEEKLY, CAP 10/16/24 Doxazosin Mesylate (Doxazosin Mesylate) 2 Mg Tablet, 1 TAB PO DAILY for 30 Days, #30 TAB 0 Refills 3/9/25 Midodrine HCl (Midodrine HCl) 5 Mg Tablet, 1 TAB PO TID for 30 Days, #90 TAB 0 Refills 10/16/24 Lansoprazole (Lansoprazole) 30 Mg Capsule.dr, 1 CAP PO DAILY for 30 Days, #30 CAP 0 Refills 10/16/24 Aspirin (Aspirin EC) 81 Mg Tablet.dr, 1 TAB PO DAILY 12/25/23 Montelukast Sodium (Montelukast Sodium) 10 Mg Tablet, 10 MG PO DAILY, TAB 09/15/21 Past Medical History Past Medical History: Diabetes-Type II, GERD, High Cholesterol, Hypertension, Hepatitis Additional Past Medical Hx: PNEUMONIA RECENT HX, OBESITY Surgical History: Other Surgical History Other: TRACH AND PEG LESS THAN 2 MONTHS AGO Family History: DM, HTN Social History: Smokers, Drugs, Lives with family Review of System Dictation NEGATIVE EXCEPT PER HPI Constitutional: Negative for fever,chills, and weight loss Eyes: Negative for injury, pain,redness, and discharge ENT: Negative for injury,pain or swelling Cardiovascular: denies chest pain, palpitations, and edema Respiratory: Negative for shortness of breath, cough, and wheezing, Abdomen/GI: Negative for abdominal pain, nausea, vomiting, diarrhea, and constipation Back: Negative for injury and pain : Negative for injury, bleeding and discharge MS/Extremity: Negative for injury and deformity Skin: Negative for rash, and discoloration Neuro: Negative for headache, weakness, numbness, tingling, and seizure Psych: Negative for suicide ideation, homicidal ideation, and hallucinations Initial Vital Sign VS Vital Signs Date Time Temp Pulse Resp B/P (MAP) Pulse Ox O2 Delivery O2 Flow Rate FiO2 01/05/25 05:03 98.6 92 20 118/79 97 Trach Collar 10.0 Physical Exam Dictation General: awake, alert, NAD Head/Face: Normocephalic, atraumatic Eyes: PERRL, EOMI, vision at baseline ENT: oral cavity clear, TMs clear, no signs of infection Neck: Dislodged tracheostomy tube Cardiovascular: RRR, normal S1/S2, No MRGs, no JVD Respiratory: CTAB, no respiratory distress, No rales or wheezes Abdomen: Soft , no tender Skin: Warm, dry, normal turgor, no rash MS/Extremity: Pulses equal, no cyanosis, neurovascular intact, FROM Neuro: COAx4, GCS 15, strength 5/5, CN 2-12 intact, normal cerebellar exam, normal gait, Psych: Normal behavior, mood, and affect normal ED Course ED Course Vital Signs Date Time Temp Pulse Resp B/P (MAP) Pulse Ox O2 Delivery O2 Flow Rate FiO2 01/05/25 05:03 98.6 92 20 118/79 97 Trach Collar 10.0 Medical Decision Making MDM 59-year-old male with a history of COPD, status post tracheostomy who was brought by EMS due to dislodged tracheostomy tube. Respiratory therapy was called for further assistance. We are able to reinsert the tracheostomy tube. No complication during procedure. Patient has been saturation 100%. Procedure Procedure Dictation: Reinsertion of tracheostomy tube 4. No sedation was necessary. With the assistance of reason for therapy, suction was performed and a number 4 size tracheostomy tube was reinserted. Patient tolerated the procedure very well. No active bleeding. The patient is saturating 100% on O2 supplementation. DX & DISP Disposition: Discharge Departure Impression: Primary Impression: Encounter for tracheostomy tube change Additional Impression: Complication of tracheostomy tube Condition: Stable Additional Instructions: RETURN TO ER FOR ANY ACUTE OR WORSENING SYMPTOMS. FOLLOW-UP IN 1-2 DAYS WITH PRIMARY PROVIDER FOR RECHECK OF TODAY'S SYMPTOMS. Referrals: CHELSEA SHANNON MD (PCP) BRENDA HOGAN MD January 05, 2025 05:27
--- NOTE | 2025-01-05 05:30 | NUR ---
Patient arrived with trach dislodged and stoma bleeding where pt attempted to reinsert back himself, I did have to open a new trach kit and used the opterator successfully reinserted pt on home O2. Addendum: 01/05/25 at 0535 by ALEXANDREA BARROW RT Amended: Links added.
[2025-01-05 06:14] VITALS: BP 122/81; PULSE 88; RESP 18; TEMP 98.5; O2SAT 100
--- NOTE | 2025-01-05 08:15 | HMCIMG ---
CHEST 1VW HISTORY: Reinsertion of trach COMPARISON: None FINDINGS: A frontal projection of the chest was obtained. Bilateral pulmonary infiltrates are seen with interstitial fibrosis. The heart is borderline enlarged. Tracheostomy tube is seen. Degenerative changes are seen No evidence of aortic calcification is seen. IMPRESSION: 1. Bilateral pulmonary infiltrates with interstitial fibrosis.
== END 2025-01-05 06:15 | disposition home or self-care (01) ==
LOC: EDH 04:57
DX: J95.03 Malfunction of tracheostomy stoma (principal); E11.9 Type 2 diabetes mellitus without complications; E66.9 Obesity, unspecified; E78.00 Pure hypercholesterolemia, unspecified; F17.200 Nicotine dependence, unspecified, uncomplicated; I10 Essential (primary) hypertension; Z79.4 Long term (current) use of insulin; Z79.52 Long term (current) use of systemic steroids; Z79.82 Long term (current) use of aspirin; Z79.899 Other long term (current) drug therapy; Z91.041 Radiographic dye allergy status
CPT/HCPCS: 31502; 71045; 99284

== ENCOUNTER → 2025-03-02 | Outpatient (CLI) | payer OTHER ==
[~2025-03-02] MED LIST changes: +BENZ200C53 PO; +BUPR-49 PO; -DOXA2TAB2 PO; -ERGO500093 PO; -INSU3INS3 SQ; +LOSA25TA41 PO; -MIDO5TAB4 PO; -PRED10TA23 PO; +PRED20TA3 PO; -TRAM-543 PO
--- NOTE | 2025-03-02 15:13 | HMCIMG ---
EXAM: CR Lumbar Spine, 3 View. CLINICAL HISTORY: LUMBAR PAIN COMPARISON: None provided. X-ray lumbar spine 11/22/2024 FINDINGS: There is a new compression fracture of the L1 vertebral body with approximately 50% loss of the anterior mid vertebral body height. The bony structures appear demineralized. Stable chronic appearing compression deformity superior endplate of L2 and stable mild compression deformity anterior and mid aspect of the L3 and L4 vertebral bodies. Moderate loss of the L5-S1 disc space. Chronic appearing compression deformity T12 vertebral body ALIGNMENT: Alignment is within normal limits. No significant scoliosis. SOFT TISSUES: The soft tissues are unremarkable. IMPRESSION: 1. New L1 compression fracture with 50% loss of anterior mid vertebral body height 2. Osteoporosis 3. Chronic compression deformities of L2, L3, and L4 4. Moderate L5-S1 disc space narrowing /[place]
== END | disposition home or self-care (01) ==
LOC: RAH 13:46
PROVIDERS: ATTEND Family Medicine
DX: M48.56XA Collapsed vertebra, not elsewhere classified, lumbar region, initial encounter for fracture (principal); M48.07 Spinal stenosis, lumbosacral region; M81.0 Age-related osteoporosis without current pathological fracture; M53.85 Other specified dorsopathies, thoracolumbar region; M54.50 Low back pain, unspecified
CPT/HCPCS: 72100

== ENCOUNTER 2025-03-10 09:58 | Inpatient (IN) | payer OTHER ==
[~2025-03-10] VITALS: Ht 165.1 cm; Wt 108.6 kg
[2025-03-10 10:28] LABS: IMMATURE GRANULOCYTE ABSOLUTE 0.04 K/uL (0-1); NUCLEATED RED BLOOD CELLS 0.0 % (0.0-0.19); PLATELET COUNT (AUTO) 205 K/uL (130-400); RED BLOOD CELL COUNT(AUTO) 4.10 MIL/uL (4.50-6.20); RED CELL DISTRIBUTION WIDTH 15.5 % (11.0-15.5); WHITE BLOOD COUNT (AUTO) 9.3 K/uL (4.8-10.8)
--- NOTE | 2025-03-10 10:32 | EKG ---
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1965 Requested By: HIMA CHAN Order Number: [id number] Reading MD: Paulo Diana Measurements Intervals [place] Rate: 107 P: 47 NC: 155 QRS: 2 QRSD: 120 T: 43 QT: 381 QTc: 509 Interpretive Statements Sinus tachycardia Paired ventricular premature complexes IVCD, consider RBBB ST elevation, consider anterolateral injury Compared to ECG 02/09/2025 18:06:56 Ventricular premature complex(es) now present Myocardial infarct finding now present Atrial flutter no longer present 2:1 AV block no longer present Prolonged QT interval no longer present ST (T wave) deviation still present Electronically Signed On 03-12-2025 10:53:50 CDT by Paulo Diana Please click the below link to view image of tracing.
[2025-03-10] MEDS: ORPHENADRINE 60MG/2ML IM ONE ×2 (10:33→20:03)
[2025-03-10] MEDS: TRIAMCINOLONE ACETONIDE 40 MG/ML 1ML VIAL IM ONE ×2 (10:34→20:02)
[2025-03-10 10:40] LABS: CREATININE 0.6 mg/dL (0.5-1.3); GLOMERULAR FILTR. RATE CALC 110.0 mL/min (>90); GLUCOSE,RANDOM 122.0 mg/dL (70-105); SODIUM SERUM 141.0 mmol/L (136-145); UREA NITROGEN, BLOOD 10.0 mg/dL (7-18)
--- NOTE | 2025-03-10 12:29 | ERN ---
General Chief Complaint: Back Pain-No Injury Stated Complaint: BACK PAIN Time Seen by MD: 09:59 Source: patient History of Present Illness Initial Comments Patient is a 59-year-old gentleman coming in with multiple complaints. Patient states that he has a chronic back pain which has been treated several occasions by traffic line painter. He states that the pain is intense in his here for further evaluation. Long with the his he states that he has been having a cough for some time. No fever or chills. Allergies: Coded Allergies: Iodinated Contrast Media (Unverified Allergy, Severe, SHORTNESS OF BREATH, 02/06/21) Home Meds Active Scripts Prednisone (Prednisone) 20 Mg Tablet, 40 MG PO DAILY for 5 Days, #5 TAB Prov:NNEKA CLARK NP 02/16/25 Lidocaine (Lidocaine Pain Relief) 4 % Adh..patch, 1 EACH TP DAILY for 10 Days, #10 ADH.PATCH Prov:NNEKA CLARK NP 02/16/25 Reported Medications Benzonatate (Benzonatate) 200 Mg Capsule, 1 CAP PO BID PRN for cough for 7 Days, #21 CAP 0 Refills 02/09/25 Bupropion HCl (Bupropion Xl) 150 Mg Tab.er.24h, 1 TAB PO DAILY for 30 Days, #30 TAB 0 Refills 02/09/25 Losartan Potassium (Losartan Potassium) 25 Mg Tablet, 1 TAB PO DAILY for 30 Days, #30 TAB 0 Refills 02/09/25 Omeprazole (Omeprazole) 40 Mg Capsule., 1 CAP PO DAILY for 30 Days, #30 CAP 0 Refills 10/16/24 Atorvastatin Calcium (LIPITOR) 10 Mg Tab, 1 TAB PO DAILY for 30 Days, #30 TAB 0 Refills 10/16/24 Montelukast Sodium (Montelukast Sodium) 10 Mg Tablet, 1 TAB PO DAILY for 30 Days, #30 TAB 0 Refills 10/16/24 Baclofen (Baclofen) 20 Mg Tablet, 1 TAB PO BID for 30 Days, #90 TAB 0 Refills 10/16/24 Lansoprazole (Lansoprazole) 30 Mg Capsule., 1 CAP PO DAILY for 30 Days, #30 CAP 0 Refills 10/16/24 Aspirin (Aspirin EC) 81 Mg Tablet., 1 TAB PO DAILY 12/25/23 Past Medical History Past Medical History: High Cholesterol, Hypertension Medical History Other: PNEUMONIA RECENT HX, OBESITY Past Surgical History: Other Surgical History Other: BACK SX Family History Family History: DM, HTN Social History Social History: Smokers, Drugs, Lives with family ROS Dictation CONSTITUTIONAL: No chills, no fever, no weakness, no diaphoresis, no malaise. HEAD/FACE: No signs of trauma. EENT: No eye pain, no blurred vision, no tearing, no double vision, no ear pain, no ear discharge, no nose pain, no nasal congestion, no throat pain, no throat swelling, no mouth pain. RESPIRATORY: No cough, no orthopnea, no SOB, no stridor, no wheezing. CARDIOVASCULAR: No chest pain, no edema, no palpitations, no syncope. GASTROINTESTINAL/ABDOMINAL: No abdominal pain, no constipation, no diarrhea, no nausea, no vomiting. GENITOURINARY: No abnormal discharge, no dysuria, no frequent urination, no hematuria. No complaints of pain in the genitals. MUSCULOSKELETAL: back pain, no gout, no joint pain, no joint swelling, no muscle pain, no muscle stiffness, no neck pain. INTEGUMENTARY: No change in color, no change in hair/nails, no dryness, no lesion, no lumps, no rash. NEUROLOGICAL/PSYCH: No anxiety, not depressed, no emotional problem, no headache, no numbness, no pre-existing deficit, no history of seizures, no tremors, no weakness. HEMATOLOGIC/LYMPHATIC: Not anemic, no history of blood clots, no apparent bleeding, no bruising, glands not swollen. All Systems Negative, Except as Noted. Physical Exam Physical Exam Dictation VITAL SIGNS: Reviewed. GENERAL APPEARANCE: Alert, oriented x3, no acute distress, obese. HEAD AND FACE: Non-traumatic. EYES: PERRL, pink conjunctivas, eyelid no trauma, anterior chamber clear. EARS: Pinnas intact and no signs of trauma or erythema. Ear canals clear and no discharge. TMs no erythema. NOSE: No discharge, no bleeding. OROPHARYNX: Mouth normal, teeth no caries, tongue pink. Pharynx clear, no erythema. Tonsils no exudates, no abscesses noted. Mucous membrane moist. NECK: Supple, non-tender, no thyromegaly, no masses, no JVD, no bruits. BREAST: Deferred. CHEST: No tenderness, no crepitus, no paradoxical movement, no retractions. LUNGS: Clear, well-ventilated, symmetric, no rales, no wheezing, no rhonchi, no stridor, good breath sounds bilaterally. HEART: Regular rate, regular rhythm, no murmur, no gallops. VASCULAR: No peripheral edema. ABDOMEN: Soft, positive bowel sounds, nondistended, no guarding, nontender, no rebound, no masses no hepatomegaly, no splenomegaly, no Horne's sign, no hernias. RECTAL: Deferred. GENITAL: Deferred. NEUROLOGICAL: Normal speech, gross motor function intact, gross sensory function intact. MUSCULOSKELETAL: Neck nontender, full range of motion, back pad inspector, full range of motion. EXTREMITIES: Nontender, full range of motion. SKIN: Color pink, dry, no turgor, no rash, no lacerations, no abrasions, no contusions. LYMPHATICS: Deferred. Results Laboratory and Microbiology Lab and Micro Result Laboratory Tests Test 03/10/25 10:17 White Blood Count 9.3 K/uL (4.8-10.8) Red Blood Count 4.10 MIL/uL (4.50-6.20) L Hemoglobin 11.6 g/dL (14.0-18.0) L Hematocrit 37.9 % (42-54) L Mean Corpuscular Volume 92.4 fL (79-99) Mean Corpuscular Hemoglobin 28.3 pg (27.0-33.0) Mean Corpuscular Hemoglobin Concent 30.6 g/dL (32.0-36.0) L Red Cell Distribution Width 15.5 % (11.0-15.5) Platelet Count 205 K/uL (130-400) Mean Platelet Volume 9.8 fL (7.5-10.5) Immature Granulocyte % (Auto) 0.4 % (0-1) Neutrophils (%) (Auto) 71.5 % (40.0-77.0) Lymphocytes (%) (Auto) 12.1 % (21.0-51.0) L Monocytes (%) (Auto) 15.6 % (3.0-13.0) H Eosinophils (%) (Auto) 0.3 % (0.0-8.0) Basophils (%) (Auto) 0.1 % (0.0-5.0) Neutrophils # (Auto) 6.6 K/uL (1.8-7.7) Lymphocytes # (Auto) 1.1 K/uL (1.0-4.8) Monocytes # (Auto) 1.5 K/uL (0.1-1.0) H Eosinophils # (Auto) 0.03 K/uL (0.00-0.70) Basophils # (Auto) 0.01 K/uL (0.00-0.20) Absolute Immature Granulocyte (auto 0.04 K/uL (0-1) Nucleated Red Blood Cells 0.0 % (0.0-0.19) White Cell Morphology Comment See comments Red Blood Cell Morphology See comments Activated Partial Thromboplast Time 32.3 SEC (26.3-35.5) Sodium Level 141 mmol/L (136-145) Potassium Level 4.7 mmol/L (3.5-5.1) Chloride Level 103 mmol/L (101-111) Carbon Dioxide Level 34 mmol/L (21-32) H Blood Urea Nitrogen 10 mg/dL (7-18) Creatinine 0.6 mg/dL (0.5-1.3) Glomerular Filtration Rate Calc 110 mL/min (>90) Random Glucose 122 mg/dL (70-105) H Total Calcium 9.0 mg/dL (8.5-10.1) Magnesium Level 2.00 mg/dL (1.80-2.40) Troponin I High Sensitivity 5 ng/L (4-75) Labs Reviewed?: Yes MDM MDM: Differential diagnosis: Chronic abdominal pain, back pain, Rationale: Tests considered and ordered secondary to shared decision making include: Previous outside records reviewed: Old ER visits. Risk of complication and/or morbidity or mortality of patient management: None Medications-Per medication reconciliation Need for hospitalization: Patient does meet criteria for hospitalization. Need for emergency major/minor surgery: No There are no social concerns with this patient. Prescription drug management Prescriptions will include symptomatic care Patient's prior external medical records from other ER visits were reviewed by me as indicated. Prior testing and results from previous visits were reviewed. Prior tests were taken into account with medical decision making and resource utilization, independent historian/historians were used to obtain complete medical history. I independently interpreted the test that were performed, results were reviewed by me and considered findings on radiology if ordered. Medical management and examination interpretation discussions were had by me with other qualified healthcare professionals as indicated for the patient's care. Patient's CT abdomen and pelvis do not show any new acute fractures. It does show old compression fractures all up and down the T and L-spine. Patient's CBC shows a normal white blood cell count, he is a little anemic. Chemistry panel also unremarkable. Patient's pain is intractable. I have repeated the IM dosages of Kenalog Toradol and Norflex.. I discussed the patient with the hospitalist service who will admit him with the neurosurgery consult with Dr. Oconnor. ED Course Orders Procedure Category Date Status Time Cbc With Differential LAB 03/10/25 Complete 10:07 Chest 1vw RAD 03/10/25 Taken 10:07 12 Lead Ekg Tracing- EKG 03/10/25 Complete Technical 10:07 Magnesium LAB 03/10/25 Complete 10:07 Troponin I High LAB 03/10/25 Complete Sensitivity 10:07 Partial LAB 03/10/25 Complete Thromboplastin Time 10:07 Basic Metabolic Panel LAB 03/10/25 Complete 10:07 Orphenadrine Citrate PHA 03/10/25 Complete (Norflex) 10:30 Triamcinolone Acet PHA 03/10/25 Complete 40mg/Ml 1ml (Kenalog 10:30 Tramadol PHA 03/10/25 Complete Hcl/Acetaminophen 12:30 Lidocaine (Lidocaine PHA 03/10/25 Complete Patch 4%) 12:30 Lumbar Spine 2-3vws RAD 03/10/25 Taken 12:29 Ct Abdomen/Pelvis W/O CT 03/10/25 Resulted Contrast 15:22 Triamcinolone Acet PHA 03/10/25 Complete 40mg/Ml 1ml (Kenalog 20:00 Orphenadrine Citrate PHA 03/10/25 Complete (Norflex) 20:00 Ketorolac PHA 03/10/25 Complete Tromethamine 30mg/Ml 20:00 Current Medications Medications (Trade) Dose Ordered Sig/Nicolasa Route PRN Reason Start Time Stop Time Status Last Admin Dose Admin Ketorolac Tromethamine (toRADol) 30 mg ONCE ONCE IVP 03/10/25 20:00 03/10/25 20:01 DC 03/10/25 20:02 Lidocaine (Lidocaine Patch 4%) 1 each ONCE ONCE TP 03/10/25 12:30 03/10/25 12:31 DC 03/10/25 12:55 Orphenadrine Citrate (Norflex) 60 mg ONCE ONCE IM 03/10/25 10:30 03/10/25 10:31 DC 03/10/25 10:33 Orphenadrine Citrate (Norflex) 60 mg ONCE ONCE IM 03/10/25 20:00 03/10/25 20:01 DC 03/10/25 20:03 Tramadol/ Acetaminophen (UltraCET) 1 tab ONCE ONCE PO 03/10/25 12:30 03/10/25 12:31 DC 03/10/25 12:26 Triamcinolone Acetonide (Kenalog 40) 40 mg ONCE ONCE IM 03/10/25 10:30 03/10/25 10:31 DC 03/10/25 10:34 Triamcinolone Acetonide (Kenalog 40) 40 mg ONCE ONCE IM 03/10/25 20:00 03/10/25 20:01 DC 03/10/25 20:02 Vital Signs Date Time Temp Pulse Resp B/P (MAP) Pulse Ox O2 Delivery O2 Flow Rate FiO2 03/10/25 19:40 98.4 78 22 147/76 96 Nasal Cannula* 2.0 N/A 03/10/25 16:00 99.0 88 20 131/85 95 Nasal Cannula* 2.0 N/A 03/10/25 14:45 99.0 90 20 135/90 95 Nasal Cannula* 3 32 03/10/25 13:00 99.0 89 24 149/97 95 Nasal Cannula* 2.0 N/A 03/10/25 11:23 89 24 134/69 95 Nasal Cannula* 2 28 03/10/25 11:00 99.0 110 31 138/98 95 Nasal Cannula* 3 32 03/10/25 10:12 99.0 93 31 149/73 99 Room Air* 0 21 03/10/25 09:59 98.4 91 18 121/79 95 Nasal Cannula 2.0 DX & DISP Disposition: Other(Comment) (Patient care transitioned to Dr. Mccallum) Departure Impression: Primary Impression: Chronic pain Additional Impressions: History of vertebral fracture, Abdominal pain Condition: Stable Referrals: SELF,REFERRAL (PCP) HIMA CHAN MD Mar 10, 2025 12:29 TITO MCCALLUM MD Mar 10, 2025 20:26
[2025-03-10] MEDS: LIDOCAINE 4% ADH..PATCH TP ONE (12:55)
--- NOTE | 2025-03-10 19:53 | HMCIMG ---
EXAM: CT Abdomen and Pelvis Without IV contrast CLINICAL HISTORY: Abdominal distension. TECHNIQUE: Axial computed tomography images of the abdomen and pelvis without intravenous contrast. CONTRAST: No IV contrast. COMPARISON: None provided. FINDINGS: LUNG BASES: Fibroatelectasis in the right middle lobe, lingular segments of the left upper lobe, and bilateral lower lobes. No pleural effusions are seen. Cardiomegaly. Aortic and mitral valve calcifications. LIVER: Hepatomegaly; the craniocaudal length of the right lobe of the liver measuring up to 18.4 cm. Mild hepatic steatosis. GALLBLADDER AND BILE DUCTS: There is subtle hyperdense attenuation in the gallbladder lumen, which may represent sludge. No biliary ductal dilatation is evident. PANCREAS: Unremarkable. SPLEEN: Multiple small calcified granulomas in the spleen. Focal capsular calcifications in the inferior aspect of the spleen. ADRENAL GLANDS: Unremarkable. KIDNEYS, URETERS, AND BLADDER: The kidneys appear within normal limits. There is no hydronephrosis or hydroureter. No urinary calculi are seen. STOMACH AND BOWEL: Mildly prominent and redundant cecum and ascending colon, the maximum diameter measuring up to 6 cm. Abundant fecal matter in the cecum and ascending colon. Unremarkable appearance of the stomach and the rest of the bowel. No evidence of bowel obstruction. No evidence suggesting enteritis or colitis. APPENDIX: No evidence of acute appendicitis on CT examination. PERITONEUM: No free fluid. No free air. LYMPH NODES: No lymphadenopathy is evident. REPRODUCTIVE: Unremarkable as visualized. VASCULATURE: No evidence of abdominal aortic aneurysm. BONES: Moderate multilevel degenerative changes in the spine. Bilateral L5 spondylolysis with no significant listhesis. The bones are osteopenic. There is a reduction in the heights of the T6 to T12 vertebral bodies. An old superior endplate osteoporotic compression fractures of the L1 and L2 vertebral bodies, with approximately 20% reduction in the vertebral body heights. There are old insufficiency fractures in both sacral ala. No retropulsion. No aggressive appearing osseous lesion. No acute osseous pathology evident. IMPRESSION: Subtle hypperdense attenuation in the gallbladder lumen, may represent sludge. Recommend ultrasound correlation. Mildly prominent and redundant cecum and ascending colon with abundant fecal matter. Old insufficiency fractures of both sacral ala. Recommend MRI correlation. Old osteoporotic compression fractures of the thoracic and lumbar vertebrae. /[place]
--- NOTE | 2025-03-10 20:29 | HP ---
History of Present Illness Reason for Visit: back pain Referring MD: Dr. Pappas-ED History of Present Illness Mr. Douglas is a 59-year-old male that was seen and examined today on 03/10/2025. Patient is a good historian of personal health. Patient reports he came to the emergency department with a chief of back pain. Onset was one month ago. The patient is bilateral lower back. Duration is chronic. Character is described as sharp aching. There was no alleviating factors. Who is aggravated with movement. Patient reports associated numbness. Patient denies any associated fecal or urinary incontinence. In the emergency department labs are unremarkable. Past Medical History Patient History: Asthma MOTHER Cardiovascular disease FATHER Completed stroke MOTHER Diabetes mellitus MOTHER Hypertension MOTHER No Family History of: Alzheimer's disease Carcinomas Chronic obstructive pulmonary disease Immunocompromised state Sudden Unknown ADDITIONAL PAST MEDICAL HISTORY: [Chronic respiratory failure on home O2 4 L na kong cannula, JORDI, COPD, asthma, emphysema, hypertension, diabetes, hyperlipidemia, substance abuse] SOCIAL HISTORY: [Denies any current smoking, alcohol use, drug use, patient lives with the son, Zafar Caputo] SURGICAL HISTORY: [Tracheostomy] Review of Systems General: No Fever, No Chills, No Night Sweats, No Fatigue, No Malaise, No Appetite, No Other HEENT: No Head Aches, No Visual Changes, No Eye Pain, No Ear Pain, No Dysphasia, No Sinus Congestion, No Post Nasal Drip, No Sore Throat, No Other Pulmonary: No Dyspnea, No Cough, No Pleuritic Chest Pain, No Other Cardiovascular: No: Chest Pain, Palpitations, Orthopnea, Paroxysmal Noc. Dyspnea, Edema, Lt Headedness, Other Gastrointestinal: No: Nausea, Vomiting, Abdominal Pain, Diarrhea, Constipation, Melena, Hematochezia, Other Genitourinary: No Dysuria, No Frequency, No Incontinence, No Hematuria, No Retention, No Other Musculoskeletal: back pain; No: other, neck pain, shoulder pain, arm pain, hand pain, leg pain, foot pain Skin: No Urticaria, No Rash, No Other Neurological: No: Weakness, Numbness, Incoordination, Change in speech, Confusion, Seizures, Other Allergies: Coded Allergies: Iodinated Contrast Media (Unverified Allergy, Severe, SHORTNESS OF BREATH, 02/06/21) Scheduled Aspirin (Aspirin EC), 1 TAB PO DAILY, (Reported) Atorvastatin Calcium (Lipitor), 1 TAB PO DAILY, (Reported) Baclofen (Baclofen), 1 TAB PO BID, (Reported) Bupropion HCl (Bupropion Xl), 1 TAB PO DAILY, (Reported) Fluticasone/Umeclidin/Vilanter (Trelegy Ellipta 100-62.5-25), 1 PUFF IH DAILY, (Reported) Lansoprazole (Lansoprazole), 1 CAP PO DAILY, (Reported) Lidocaine (Lidocaine Pain Relief), 1 EACH TP DAILY Losartan Potassium (Losartan Potassium), 1 TAB PO DAILY, (Reported) Montelukast Sodium (Montelukast Sodium), 1 TAB PO DAILY, (Reported) Omeprazole (Omeprazole), 1 CAP PO DAILY, (Reported) Omeprazole (Omeprazole), 1 CAP PO DAILY, (Reported) Tizanidine HCl (Tizanidine HCl), 4 MG PO AM, (Reported) [Aspirin 325], 325 MG PO AM, (Reported) Scheduled PRN Benzonatate (Benzonatate), 1 CAP PO BID PRN for cough, (Reported) Discontinued Medications Prednisone (Prednisone), 40 MG PO DAILY Exam Vital Signs Vital Signs Date Time Temp Pulse Resp B/P (MAP) Pulse Ox O2 Delivery O2 Flow Rate FiO2 03/10/25 19:40 98.4 78 22 147/76 96 Nasal Cannula* 2.0 N/A General Appearance: Alert, Oriented X3, Cooperative, moderate distress HEENT: Atraumatic, EOMI Respiratory: Clear to auscultation, Other (Positive hyper-resonance) Cardiovascular: Regular rate, Regular rhythm, Normal S1, Normal S2 Abdominal: Normal bowel sounds, Soft, No tenderness Extremities: No edema Skin: No significant lesion Neuro: Normal gait, Normal speech, Strength at 5/5 X4 ext, Sensation intact, Cranial nerves 3-12 NL Psych/Mental Status: Mental status NL, Mood NL, Thoughts/Content NL Assessment/Plan ASSESSMENT: [ Intractable back pain, POA L2-S1 disc bulging, by MRI on 02/13/2025 T12, L1, L2 compression fracture by MRI on 02/13/2025 Chronic respiratory in failure JORDI COPD Asthma Emphysema Hypertension Diabetes mellitius type2 Hyperlipidemia ] PLAN: [ Admit patient to medical floor as inpatient status. Place patient on telemetry monitoring. Intractable back pain: Neurosurgeon on-call, Dr. Oconnor has been consulted Lyrica 50 mg by mouth twice daily. As needed analgesia with morphine 2 mg IV every 4 hours. Patient received Norflex, triamcinolone, tramadol, lidocaine in the emergency department. This did not help. Diabetes mellitus type 2: Check hemoglobin A1c in a.m. Glucometer checks a.c. and HS 1800 ADA diet Humulin R sliding scale . Chronic respiratory failure, JORDI, COPD, asthma, emphysema, hypertension, hyperlipidemia: Consider resuming home medications once they have been reconciled. At time of admission home medications have been reconciled. For now: Home CPAP per home settings. DuoNebs every 6 hours. Pulmicort twice daily. Hydralazine 10 mg IV every 4 hours for systolic blood pressure greater than 160 mmHg Consult pulmonology group for evaluation and further recommendations regarding patient's chronic respiratory failure and home O2 dependence GI prophylaxis, famotidine DVT prophylaxis, Lovenox ADVANCED CARE PLANNING 1. Which of the following were discussed? Hospice Care - Yes Therapeutic options - yes Advance Directives - Yes - patient states he does not have any advance dire ctives in place at this time. Patient states his son, Zafar can make decisions for him if he becomes unable. Other discussions - patient wishes to remain a full code 2. Discussed with who? Patient 3. Voluntary nature of this service was explained to the patient? Yes 4. Amount of time spent - ___16 minutes____ 5. Reviewed by Physician? (if this service was performed by NPP) Yes This document was generated in part using voice recognition software, occasional wrong word or sound alike substitutions may have occurred due to the inherent limitations of voice recognition software. Read the chart carefully and recognize using context, where the substitutions have occurred. Although every effort was made to edit the content, immunohematologist and typing errors may occur ATTESTATION BY PHYSICIAN I have seen and examined the patient. I reviewed the documentation, medical decision making, and treatment plan as noted by the mid-level provider above. I agree with the findings and plan of care. ] [facility] Mar 10, 2025 20:29
[2025-03-10 20:47] VITALS: PULSE 97; RESP 20; O2SAT 96
[2025-03-10 20:58] LABS: AMPHET/METH SCREEN,URINE NEGATIVE (NEGATIVE); BARBITURATE SCREEN, URINE NEGATIVE (NEGATIVE); CANNABINOID SCREEN,URINE NEGATIVE (NEGATIVE); COCAINE SCREEN,URINE NEGATIVE (NEGATIVE)
--- NOTE | 2025-03-10 21:59 | NUR ---
REPORT GIVEN TO HERMILO REYES.
--- NOTE | 2025-03-10 22:03 | NUR ---
PATIENT TRANSPORTED TO [facility].
[2025-03-10 22:20] VITALS: BP 135/74; PULSE 73; RESP 20; TEMP 98.3
--- NOTE | 2025-03-10 23:20 | NUR ---
ADMIT NOTE ADMIT TO ROOM 409 VIA STRETCHER FROM ER, PATIENT AWAKE, ALERT, OX3, PAIN WITH MINIMAL MOVEMENT TO LOWER BACK, OXYGEN AT 3 L N/C, N O FAMILY AT BEDSIDE , TEACH PLAN OF CARE AND EXPECTED OUTCOME, PATIENT VERBALIZES UNDERSTANDING VIA TEACH BACK
[2025-03-10] MEDS ORDERED: ASPIRIN 325 PO (23:25)
[2025-03-10] MEDS ORDERED: OMEP40CA21 PO (23:25)
[2025-03-10] MEDS ORDERED: TIZA4CAP8 PO (23:25)
--- NOTE | 2025-03-10 23:30 | NUR ---
CONSULT SPOKE TO BENCHMARK REGARDING PENDING CONSULT FOR ARF, OBTAINED ORDERS FOR BIPAP PRN
[2025-03-10] MEDS ORDERED: FLUT1BLS3 IH (23:33)
[2025-03-10 23:35] VITALS: PULSE 87; RESP 18
[2025-03-11] VITALS (15 sets, daily range): BP systolic 131–155; BP diastolic 76–87; PULSE 83–120; RESP 18–31; TEMP 97.9–98.5; O2SAT 86–99
[2025-03-11 05:11] LABS: IMMATURE GRANULOCYTE ABSOLUTE 0.03 K/uL (0-1); NUCLEATED RED BLOOD CELLS 0.0 % (0.0-0.19); PLATELET COUNT (AUTO) 252 K/uL (130-400); RED BLOOD CELL COUNT(AUTO) 4.30 MIL/uL (4.50-6.20); RED CELL DISTRIBUTION WIDTH 15.2 % (11.0-15.5); WHITE BLOOD COUNT (AUTO) 10.5 K/uL (4.8-10.8)
[2025-03-11 05:22] LABS: CREATININE 0.7 mg/dL (0.5-1.3); GLOMERULAR FILTR. RATE CALC 105.0 mL/min (>90); GLUCOSE,RANDOM 92.0 mg/dL (70-105); PHOSPHORUS 3.8 mg/dL (2.5-4.9); SODIUM SERUM 141.0 mmol/L (136-145); UREA NITROGEN, BLOOD 14.0 mg/dL (7-18)
[2025-03-11] MEDS: BUDESONIDE 0.5 MG/2 ML INH IH SCH (06:10)
[2025-03-11] MEDS: FAMOTIDINE 20MG TAB PO SCH (08:18)
[2025-03-11] MEDS: ENOXAPARIN SODIUM 40 MG/0.4 ML SYRINGE SQ SCH (08:20)
--- NOTE | 2025-03-11 08:23 | PN ---
[facility] PROGRESS NOTE Date of Service: Mar 11, 2025 Time of Service: 08:23 SUBJECTIVE: [The patient was evaluated in room 409 and is currently receiving BiPAP support. According to the primary nurse, the patients oxygen saturation had been declining, reaching the 70s, which prompted initiation of BiPAP. The patient is alert and oriented, and is requesting water and food. A respiratory therapy consult will be requested to reassess oxygen supplementation options to facilitate the patients ability to eat. REVIEW OF SYSTEMS CONSTITUTIONAL: Denies fevers, chills, or night sweats. No unintentional weight loss reported. NEUROLOGICAL: Denies headache, amaurosis fugax, motor weakness, sensory deficit, vertigo/spinning sensation, gait abnormalities, or tremors. ENT: No hearing loss, otalgia, otorrhea, rhinitis, rhinorrhea, hoarseness, or sore throat. CARDIOVASCULAR: Denies any exertional angina, dyspnea on exertion, orthopnea, paroxysmal nocturnal dyspnea, palpitations, life-threatening arrhythmias, claudication. PULMONARY: Denies any shortness of breath, cough, phlegm/sputum, hemoptysis, pleuritic chest pain. SLEEP: Denies morning headaches, daytime somnolence or napping. Denies difficulty falling asleep, staying asleep, waking from sleep. Denies knowledge of snoring. GASTROINTESTINAL: Denies any type of dysphagia to either liquids or solids. Denies nausea, vomiting, pyrosis, early satiety, abdominal pain, diarrhea, constipation, or changes in stool consistency or caliber. Denies coffee-ground emesis, hematemesis, hematochezia, or melanotic stools. GENITOURINARY: Denies frequency, urgency, nocturia, hematuria or incontinence (Storage/Irritative symptoms.) Low urinary stream, straining to void, urinary intermittency or hesitancy, splitting of the voiding stream, terminal dribbling. ENDOCRINOLOGIC: Denies polyuria, polydipsia, polyphagia or heat/cold intolerances. HEMATOLOGIC: Denies thrombophilia/previous clots, or coagulopathy/bleeding disorders. ONCOLOGIC: Denies personal history of malignancy. DERMATOLOGIC: Denies rashes or pruritus. PSYCHIATRIC: Denies any suicidal or homicidal ideation. Denies hallucinations. PHYSICAL EXAM GENERAL APPEARANCE: The patient is awake, alert, and oriented, in no acute cardiopulmonary distress. NEUROLOGICAL: Cranial nerves II-XII grossly intact. Motor is 5/5 in bilateral upper and lower extremities proximal to distal. No sensory deficits. HEENT: Face is symmetric. Pupils are equal and reactive. Extraocular movements are intact. NECK: Supple. No JVD. No thyromegaly. No submental, submandibular, pre- /postauricular, occipital or supraclavicular lymphadenopathy. CHEST: Normal chest expansion. No Telemetry. LUNGS: Absence of any rales, rhonchi or any wheezing. CARDIOVASCULAR: Regular. S1 and S2 normal. No appreciable rubs, murmurs or gallops. ABDOMEN: Soft, nontender, and nondistended. There is no rebound, voluntary guarding, or rigidity. : Deferred. No Michele. EXTREMITIES: Non-edematous and not cyanotic. No clubbing. Good capillary refill. SKIN: No skin breakdown. Vital Signs (last 8hr) Date Time Temp Pulse Resp B/P (MAP) Pulse Ox O2 Delivery O2 Flow Rate FiO2 03/11/25 06:18 120 18 03/11/25 06:18 120 20 N/Cannula Low lpm 3.0 32 03/11/25 04:12 83 22 32 03/11/25 03:44 98.4 118 22 152/78 91 CPAP LABS: Laboratory: Test 03/11/25 05:08 03/11/25 04:28 03/10/25 20:42 03/10/25 10:17 Range/Units Whole Blood Glucose 90 70-110 MG/DL White Blood Count 10.5 4.8-10.8 K/uL Red Blood Count 4.30 L 4.50-6.20 MIL/uL Hemoglobin 11.8 L 14.0-18.0 g/dL Hematocrit 40.5 L 42-54 % Mean Corpuscular Volume 94.2 79-99 fL Mean Corpuscular Hemoglobin 27.4 27.0-33.0 pg Mean Corpuscular Hemoglobin Concent 29.1 L 32.0-36.0 g/dL Red Cell Distribution Width 15.2 11.0-15.5 % Platelet Count 252 130-400 K/uL Mean Platelet Volume 9.8 7.5-10.5 fL Immature Granulocyte % (Auto) 0.3 0-1 % Neutrophils (%) (Auto) 73.7 40.0-77.0 % Lymphocytes (%) (Auto) 11.1 L 21.0-51.0 % Monocytes (%) (Auto) 14.6 H 3.0-13.0 % Eosinophils (%) (Auto) 0.1 0.0-8.0 % Basophils (%) (Auto) 0.2 0.0-5.0 % Neutrophils # (Auto) 7.7 1.8-7.7 K/uL Lymphocytes # (Auto) 1.2 1.0-4.8 K/uL Monocytes # (Auto) 1.5 H 0.1-1.0 K/uL Eosinophils # (Auto) 0.01 0.00-0.70 K/uL Basophils # (Auto) 0.02 0.00-0.20 K/uL Absolute Immature Granulocyte (auto 0.03 0-1 K/uL Nucleated Red Blood Cells 0.0 0.0-0.19 % Sodium Level 141 136-145 mmol/L Potassium Level 4.2 3.5-5.1 mmol/L Chloride Level 102 101-111 mmol/L Carbon Dioxide Level 35 H 21-32 mmol/L Blood Urea Nitrogen 14 7-18 mg/dL Creatinine 0.7 0.5-1.3 mg/dL Glomerular Filtration Rate Calc 105 >90 mL/min Random Glucose 92 70-105 mg/dL Total Calcium 9.4 8.5-10.1 mg/dL Phosphorus Level 3.8 2.5-4.9 mg/dL Magnesium Level 2.00 1.80-2.40 mg/dL Urine Opiates Screen NEGATIVE NEGATIVE Urine Barbiturates Screen NEGATIVE NEGATIVE Urine Phencyclidine Screen NEGATIVE NEGATIVE Urine Amphetamines Screen NEGATIVE NEGATIVE Urine Benzodiazepines Screen NEGATIVE NEGATIVE Urine Cocaine Screen NEGATIVE NEGATIVE Urine Marijuana (THC) Screen NEGATIVE NEGATIVE White Cell Morphology Comment See comments Red Blood Cell Morphology See comments Activated Partial Thromboplast Time 32.3 26.3-35.5 SEC Hemoglobin A1c 5.9 4.0-6.0 % Estimated Average Glucose (eAG) 123 70-126 mg/dL Troponin I High Sensitivity 5 4-75 ng/L Current Medications Medications (Trade) Dose Ordered Sig/Nicolasa Route PRN Reason Start Time Stop Time Status Last Admin Dose Admin Acetaminophen (TYLenol 325MG TAB) 650 mg Q6H PRN PO TEMPERATURE GREATER THAN 101.5 03/10/25 20:30 04/09/25 20:29 Albuterol (DUOneb) 1 UDVIAL [id number] IH 03/11/25 00:00 04/10/25 00:00 03/11/25 06:10 1 UDVIAL Budesonide (Pulmicort 0.5 Mg/2ml) 0.5 mg BIDRESP IH 03/11/25 06:00 04/10/25 05:59 03/11/25 06:10 0.5 MG Duloxetine HCl (CymbALTA 30 mg CAP) 30 mg DAILY PO 03/11/25 09:00 04/10/25 08:59 Enoxaparin Sodium (Lovenox) 40 mg DAILY SQ 03/11/25 09:00 04/10/25 08:59 Famotidine (Pepcid 20mg Tab) 20 mg DAILY PO 03/11/25 09:00 04/10/25 08:59 Hydralazine HCl (APRESOLine 20MG INJ) 10 mg Q6H PRN IV For:SBP above 160;DBP above 90 03/10/25 20:30 04/09/25 20:29 Insulin Human Regular (humuLIN R 100 UNIT/ML 3ML) INSULIN SLIDING SCAL... ACHS SQ 03/10/25 21:00 04/09/25 20:59 Morphine Sulfate (morPHINE 4MG SYG) 2 mg Q4H PRN IVP SEVERE PAIN (7-10) 03/10/25 20:30 03/17/25 20:29 03/11/25 01:28 2 MG Ondansetron HCl (zoFRAN 4MG INJ) 4 mg Q6H PRN IV NAUSEA/VOMITING 03/10/25 20:30 04/09/25 20:29 Pregabalin (LYRica 25MG) 50 mg BID PO 03/10/25 21:00 04/09/25 20:59 03/10/25 20:51 50 MG Pregabalin ([id number]) 75 mg BID PO 03/10/25 21:00 03/10/25 20:31 DC DIAGNOSTICS / RADIOLOGY: [ ] ASSESSMENT: [Intractable back pain, POA L2-S1 disc bulging, by MRI on 02/13/2025 T12, L1, L2 compression fracture by MRI on 02/13/2025 Chronic respiratory in failure JORDI COPD Asthma Emphysema Hypertension Diabetes mellitius type2 Hyperlipidemia ] PLAN: [Intractable back pain: We will follow up with Neurosurgeon on-call, Dr. Oconnor Lyrica 50 mg by mouth twice daily. As needed analgesia with morphine 2 mg IV every 4 hours. Patient received Norflex, triamcinolone, tramadol, lidocaine in the emergency department. Diabetes mellitus type 2: Check hemoglobin A1c in a.m. Glucometer checks a.c. and HS 1800 ADA diet Humulin R sliding scale Chronic respiratory failure, JORDI, COPD, asthma, emphysema, hypertension, hyperlipidemia: Patient is currently on BiPAP support We will request respiratory therapist to re-evaluate for other options such as high-flow Continue with-DuoNebs every 6 hours, Pulmicort twice daily. Hydralazine 10 mg IV every 4 hours for systolic blood pressure greater than 160 mmHg Continue to follow up with pulmonology team for further recommendation We will repeat labs tomorrow GI prophylaxis, famotidine DVT prophylaxis, Lovenox Case discussed with Dr. Cosme, above plan was formulated ] ATTESTATION BY PHYSICIAN I have seen and examined the patient. I reviewed the documentation, medical decision making, and treatment plan as noted by the mid-level provider above. I agree with the findings and plan of care. Leslie Cosme MD, [facility] Mar 11, 2025 08:23
--- NOTE | 2025-03-11 08:35 | NUR ---
CHANGE IN CONDITION ROUNDED ON PATIENT TO HAVING SEVERE PAIN TO BACK AT 9/10 PAIN RATING. PATIENT WAS ALSO HAVING SOB AND USING ACCESSORY MUSCLES TO BREATH. PATIENT WAS IN SUPINE POSITION AND VITALS ARE FOLLOWS: HR 120, BP: 135/78, TEMP: 98.4, RR: 24, 02 SAT:86 AND O2 DELIVERY: NASAL CANNULA 3L. STARTED PATIENT ON HIS PRN BI PAP SETTINGS AND GAVE PATIENT HIS DOSAGE OF PRN 0.5 MG MORPHINE IV. SET PATIENT IN [place]VERSE [place]. WILL CONTINUE TO MONITOR.
--- NOTE | 2025-03-11 10:44 | NUR ---
MARQUETRY WORKER HEYDI VAZQUEZ MARQUETRY WORKER ROUNDED ON PT AND I INFORMED HER OF THE PATIENT'S RESPIRATORY CONDITION AND PAIN. SHE CHANGED MORPHINE DOSAGE AND GAVE ORDERS FOR HIGH FLOW OXYGEN DELIVERY. HER RECOMMENDATIONS WERE TO WAIT AND SEE BENCHMARK'S RECOMMENDATIONS. SHE ALSO INFORMED ME THAT PATIENT COULD HAVE SMALL BITS OF FOOD WHILE OFF BIPAP MACHINE. WILL CONTINUE TO MONITOR
--- NOTE | 2025-03-11 12:47 | NUR ---
PROVIDER CONSULT DR. PEÑA ON UNIT FOR CONSULTATION. PER MD ORDER, ADMINISTER LIDOCAINE PATCH TO AREA OF PAIN, ORDER TORADOL 30 Q6 PRN BREAKTHROUGH PAIN, ORDER TYLENOL 3 Q6 AND RESUME BACLOFEN. ORDERS PLACED PRIMARY NURSE AMANUEL BERRY AWARE.
--- NOTE | 2025-03-11 16:29 | CONS ---
[facility] CONSULTATION NOTE Date Patient Seen: Mar 11, 2025 Time of Visit: 12:24 Supervising Physician: DR SHASHA RIVERO Reason for Consultation: [ ] Primary Care Physician: [ ] Outpatient Specialists: [ ] Inpatient Consults: [ ] PROBLEM LIST: Intractable back pain, POA L2-S1 disc bulging, by MRI on 02/13/2025 T12, L1, L2 compression fracture by MRI on 02/13/2025 Chronic respiratory in failure JORDI COPD Asthma Emphysema Hypertension Diabetes mellitius type2 Hyperlipidemia HPI: Mr. Douglas is a 59-year-old male that was seen and examined today on 03/10/2025. Patient is a good historian of personal health. Patient reports he presented in to the emergency department with a chief of back pain. Onset was one month ago, described as sharp aching. There was no alleviating factors. Who is aggravated with movement. Patient reports associated numbness. Patient denies any associated fecal or urinary incontinence. States pain right now is 8/10 plan is to add Toradol , tylenol and blacofen ( home medications) He states uses oxygen at home 3 L and Bipap as well, we will continue monitoring closely PAST MEDICAL HX: see above PAST SURGICAL HX: noncontributory SOCIAL HISTORY: No tobacco, ETOH, or illicit drug use Coded Allergies: Iodinated Contrast Media (Unverified Allergy, Severe, SHORTNESS OF BREATH, 02/06/21) REVIEW OF SYSTEMS: 12 point ROS reviewed with patient. Pertinent positives mentioned above. Otherwise negative. PHYSICAL EXAM: GENERAL: alert, weak, awake oriented x 3 HEENT: EOMI, Sclera non icteric, moist mucosa NECK: Supple, no JVD, trachea midline LUNGS: Clear breath sounds bilaterally. No wheezes HEART: Regular rate and rhythm. Normal S1 and S2, without murmurs ABD: Abdomen soft, nontender. Bowel sounds present EXT: No clubbing cyanosis or edema NEURO: Alert and oriented to person, follows commands Vital Signs (last 8hr) Date Time Temp Pulse Resp B/P (MAP) Pulse Ox O2 Delivery O2 Flow Rate FiO2 03/11/25 12:00 98.4 108 25 131/87 90 Nasal Cannula 3.0 28 03/11/25 12:00 102 22 N/Cannula Oximizer Hi LPM 4.0 36 03/11/25 11:20 108 30 38 03/11/25 11:00 109 28 8/2/25 08:52 96 22 32 LABS: Hematology Labs: Test 03/11/25 04:28 03/10/25 10:17 Range/Units White Blood Count 10.5 4.8-10.8 K/uL Red Blood Count 4.30 L 4.50-6.20 MIL/uL Hemoglobin 11.8 L 14.0-18.0 g/dL Hematocrit 40.5 L 42-54 % Mean Corpuscular Volume 94.2 79-99 fL Mean Corpuscular Hemoglobin 27.4 27.0-33.0 pg Mean Corpuscular Hemoglobin Concent 29.1 L 32.0-36.0 g/dL Red Cell Distribution Width 15.2 11.0-15.5 % Platelet Count 252 130-400 K/uL Mean Platelet Volume 9.8 7.5-10.5 fL Immature Granulocyte % (Auto) 0.3 0-1 % Neutrophils (%) (Auto) 73.7 40.0-77.0 % Lymphocytes (%) (Auto) 11.1 L 21.0-51.0 % Monocytes (%) (Auto) 14.6 H 3.0-13.0 % Eosinophils (%) (Auto) 0.1 0.0-8.0 % Basophils (%) (Auto) 0.2 0.0-5.0 % Neutrophils # (Auto) 7.7 1.8-7.7 K/uL Lymphocytes # (Auto) 1.2 1.0-4.8 K/uL Monocytes # (Auto) 1.5 H 0.1-1.0 K/uL Eosinophils # (Auto) 0.01 0.00-0.70 K/uL Basophils # (Auto) 0.02 0.00-0.20 K/uL Absolute Immature Granulocyte (auto 0.03 0-1 K/uL Nucleated Red Blood Cells 0.0 0.0-0.19 % White Cell Morphology Comment See comments Red Blood Cell Morphology See comments Chemistry Labs: Test 03/11/25 11:58 03/11/25 04:28 03/10/25 10:17 Range/Units Whole Blood Glucose 104 70-110 MG/DL Bedside Glucose Comment Notified Nurse Sodium Level 141 136-145 mmol/L Potassium Level 4.2 3.5-5.1 mmol/L Chloride Level 102 101-111 mmol/L Carbon Dioxide Level 35 H 21-32 mmol/L Blood Urea Nitrogen 14 7-18 mg/dL Creatinine 0.7 0.5-1.3 mg/dL Glomerular Filtration Rate Calc 105 >90 mL/min Random Glucose 92 70-105 mg/dL Total Calcium 9.4 8.5-10.1 mg/dL Phosphorus Level 3.8 2.5-4.9 mg/dL Magnesium Level 2.00 1.80-2.40 mg/dL Hemoglobin A1c 5.9 4.0-6.0 % Estimated Average Glucose (eAG) 123 70-126 mg/dL Troponin I High Sensitivity 5 4-75 ng/L Coagulation Labs: Test 03/10/25 10:17 Range/Units Activated Partial Thromboplast Time 32.3 26.3-35.5 SEC DIAGNOSTICS / RADIOLOGY RESULTS: [ ] PLAN Toradol 30 mg po every 6n hrs prn for pain Resume tylenol #3 Resume Baclofen NEURO: Minimize central acting medications as possible. Maintain fall precautions, adequate lighting during the day PULMONARY: Supplemental 02 as needed. Maintain aspiration precautions at all times CARDIOVASCULAR: Follow hemodynamics. Vital signs per facility protocol GI & NUTRITION: Continue with nutritional support. Continue stool softeners and laxatives as needed. KIDNEYS & ELECTROLYTES: Strict monitoring of intake, output and overall fluid balance. Avoid nephrotoxic medications to the extent possible. Medications to be dosed according to renal function. Monitor electrolytes and replace as needed ENDOCRINE: Maintain blood glucose between 100-180 at all times. Hypoglycemia protocol in place INFECTIOUS DISEASE: Trend temperature, WBC and procalcitonin level Follow cultures, deescalate antibiotics as soon as possible. Panculture if new onset fever ONCOLOGY/HEMATOLOGY/COAGULATION: Monitor for s/s of bleeding Monitor hemoglobin, coagulation studies as needed SKIN: Pressure ulcer prevention per facility protocol Specialty mattress ORTHO/REHAB: Continue PT/OT Prophylaxis: Continue GI and DVT prophylaxis Code Status: Full Resuscitation Disposition: TBD ATTESTATION BY PHYSICIAN Documentation assistance provided by a scribe, information recorded by the scribe was done at my direction and has been reviewed and validated by me." SRAVANI RIVERO MD I personally scribed for SHASHA RIVERO MD ([email or web address]) on 03/11/25 at 16:29. Electronically submitted by Florina Harris ([id number]). SHASHA RIVERO MD Mar 11, 2025 16:29
--- NOTE | 2025-03-11 17:11 | NUR ---
DCP: INITIAL ASSESSMENT Patient lives with son. He has no home services. Patient has CPAP and Home O2 concentrator/portable. Home O2 is thru [employer]. Patient needs help with ADLs and doesn't drive. Patient's son helps with transportation. PCP is in [place]. Pharmacy is [facility] in [place]. Patient voiced no safety concerns regarding returning home and states he has no difficulty with housing or buying food. DCP is home. Addendum: 03/11/25 at 1713 by VEL ANDRE Amended: Links added.
[2025-03-11] MEDS: BACLOFEN 10 MG TABLET PO SCH (20:56)
[2025-03-12] VITALS (17 sets, daily range): BP systolic 122–154; BP diastolic 53–84; PULSE 77–99; RESP 16–27; TEMP 96.3–98; O2SAT 94–99
[2025-03-12 05:08] LABS: NUCLEATED RED BLOOD CELLS 0.0 % (0.0-0.19); PLATELET COUNT (AUTO) 252.0 K/uL (130-400); RED BLOOD CELL COUNT(AUTO) 3.94 MIL/uL (4.50-6.20); RED CELL DISTRIBUTION WIDTH 14.6 % (11.0-15.5); WHITE BLOOD COUNT (AUTO) 10.1 K/uL (4.8-10.8)
[2025-03-12 05:31] LABS: ASPARTATE AMINOTRANSFERASE 23.0 U/L (10-37); CREATININE 0.6 mg/dL (0.5-1.3); GLOMERULAR FILTR. RATE CALC 110.0 mL/min (>90); GLUCOSE,RANDOM 96.0 mg/dL (70-105); SODIUM SERUM 138.0 mmol/L (136-145); TOTAL PROTEIN, SERUM 7.2 g/dL (6.0-8.3); UREA NITROGEN, BLOOD 22.0 mg/dL (7-18)
[2025-03-12] MEDS: LIDOCAINE 4% ADH..PATCH TP SCH (09:40)
--- NOTE | 2025-03-12 10:36 | NUR ---
NURSE PRACTITIONER INFORMED INFORMED MAYTE VAZQUEZ IT COMPLIANCE ANALYST VIA TELEPHONE THAT PATIENT HAS NOT HAD BOWEL MOVEMENT SINCE February. ALSO PATIENT HAS RED APPEARANCE/RASH TO INNER GROIN AND REQUESTING PHYSICAL THERAPY BECAUSE HE WANTS TO MOVE AROUND AND GET OUT OF BED. SHE GAVE ME NO NEW ORDERS AT THIS TIME. WILL CONTINUE TO MONITOR.
[2025-03-12 12:45] LABS: ABG BASE EXCESS 7.8 mmol/L (-2.0-3.0); ABG HCO3 38.8 mmol/L (21.0-28.0); ABG OXYGEN SATURATION 94.5 % (94.0-98.0); ABG PCO2 89 mmHg (35-48); ABG PH 7.258 (7.350-7.450); PO2, ARTERIAL BG 86.2 mmHg (83.0-108.0); TEMPERATURE, CELSIUS BG 27.0 CELSIUS (35.5-37.0); VENT MODE, BG OXYMIZER (ROOM AIR)
--- NOTE | 2025-03-12 13:33 | NUR ---
SUNDEEP VAZQUEZ SODA DRIER FEEDER ROUNDED AND I GAVE HER THE RESULTS OF THE ARTERIAL BLOOD GAS. ALSO REMINDED HER OF HOME MEDS TO BE RESUMED. ASKED FOR IM TORADOL TO BE CHANGED TO IV TORADOL AND SHE SAID SHE WILL INPUT ORDERS. I ALSO ASKED FOR PT/EVALUATION AND TREAT DUE TO PATIENT WANTING TO GET UP AND HAVE A BOWEL MOVEMENT. SHE STATED SHE WILL INPUT ORDERS SHORTLY.
--- NOTE | 2025-03-12 14:59 | PN ---
[facility] PROGRESS NOTE Date of Service: Mar 12, 2025 Time of Service: 14:58 SUBJECTIVE: [Patient was evaluated this morning in his room ([id number]). He continues to require BiPAP support and is now unable to tolerate any time off the device. Nursing staff report that when BiPAP is removed, he becomes increasingly dyspneic and anxious. Overnight, his CO? level increased to 89, prompting pulmonology to round and adjust his BiPAP settings. Despite these adjustments, he remains dependent on continuous BiPAP support and is not tolerating any breaks from the device. REVIEW OF SYSTEMS CONSTITUTIONAL: Denies fevers, chills, or night sweats. No unintentional weight loss reported. NEUROLOGICAL: Denies headache, amaurosis fugax, motor weakness, sensory deficit, vertigo/spinning sensation, gait abnormalities, or tremors. ENT: No hearing loss, otalgia, otorrhea, rhinitis, rhinorrhea, hoarseness, or sore throat. CARDIOVASCULAR: Denies any exertional angina, dyspnea on exertion, orthopnea, paroxysmal nocturnal dyspnea, palpitations, life-threatening arrhythmias, claudication. PULMONARY: Denies any shortness of breath, cough, phlegm/sputum, hemoptysis, pleuritic chest pain. SLEEP: Denies morning headaches, daytime somnolence or napping. Denies difficulty falling asleep, staying asleep, waking from sleep. Denies knowledge of snoring. GASTROINTESTINAL: Denies any type of dysphagia to either liquids or solids. Denies nausea, vomiting, pyrosis, early satiety, abdominal pain, diarrhea, constipation, or changes in stool consistency or caliber. Denies coffee-ground emesis, hematemesis, hematochezia, or melanotic stools. GENITOURINARY: Denies frequency, urgency, nocturia, hematuria or incontinence (Storage/Irritative symptoms.) Low urinary stream, straining to void, urinary intermittency or hesitancy, splitting of the voiding stream, terminal dribbling. ENDOCRINOLOGIC: Denies polyuria, polydipsia, polyphagia or heat/cold intolerances. HEMATOLOGIC: Denies thrombophilia/previous clots, or coagulopathy/bleeding disorders. ONCOLOGIC: Denies personal history of malignancy. DERMATOLOGIC: Denies rashes or pruritus. PSYCHIATRIC: Denies any suicidal or homicidal ideation. Denies hallucinations. PHYSICAL EXAM GENERAL APPEARANCE: The patient is awake, alert, and oriented, in no acute cardiopulmonary distress. NEUROLOGICAL: Cranial nerves II-XII grossly intact. Motor is 5/5 in bilateral upper and lower extremities proximal to distal. No sensory deficits. HEENT: Face is symmetric. Pupils are equal and reactive. Extraocular movements are intact. NECK: Supple. No JVD. No thyromegaly. No submental, submandibular, pre- /postauricular, occipital or supraclavicular lymphadenopathy. CHEST: Normal chest expansion. No Telemetry. LUNGS: Absence of any rales, rhonchi or any wheezing. CARDIOVASCULAR: Regular. S1 and S2 normal. No appreciable rubs, murmurs or gallops. ABDOMEN: Soft, nontender, and nondistended. There is no rebound, voluntary guarding, or rigidity. : Deferred. No Michele. EXTREMITIES: Non-edematous and not cyanotic. No clubbing. Good capillary ref ill. SKIN: No skin breakdown. Vital Signs (last 8hr) Date Time Temp Pulse Resp B/P (MAP) Pulse Ox O2 Delivery O2 Flow Rate FiO2 03/12/25 12:53 90 27 38 03/12/25 12:00 97.9 91 18 123/63 97 Nasal Cannula 4.0 03/12/25 11:05 85 18 03/12/25 11:04 85 22 N/Cannula Oximizer Hi LPM 4.0 36 03/12/25 08:00 97.7 83 18 122/53 97 BIPAP 03/12/25 08:00 97 Nasal Cannula* 4 36 LABS: Laboratory: Test 03/12/25 12:42 03/12/25 11:08 03/12/25 04:35 03/11/25 16:41 Range/Units Blood Gas Specimen Type Arterial Arterial Blood pH 7.258 L 7.350-7.450 Arterial Blood Partial Pressure CO2 89 *H 35-48 mmHg Arterial Blood Partial Pressure O2 86.2 83.0-108.0 mmHg Arterial Blood HCO3 38.8 H 21.0-28.0 mmol/L Arterial Blood Oxygen Saturation 94.5 94.0-98.0 % Arterial Blood Base Excess 7.8 H -2.0-3.0 mmol/L Blood Gas Temperature 27.0 L 35.5-37.0 CELSIUS Blood Gas Flow-by 4.00 0.00-15.00 L/min Blood Gas Vent Mode OXYMIZER ROOM AIR FiO2 36.0 % Blood Gas Specimen Comment JAMAL HART Whole Blood Glucose 111 H 70-110 MG/DL White Blood Count 10.1 4.8-10.8 K/uL Red Blood Count 3.94 L 4.50-6.20 MIL/uL Hemoglobin 10.9 L 14.0-18.0 g/dL Hematocrit 37.1 L 42-54 % Mean Corpuscular Volume 94.2 79-99 fL Mean Corpuscular Hemoglobin 27.7 27.0-33.0 pg Mean Corpuscular Hemoglobin Concent 29.4 L 32.0-36.0 g/dL Red Cell Distribution Width 14.6 11.0-15.5 % Platelet Count 252 130-400 K/uL Mean Platelet Volume 9.7 7.5-10.5 fL Nucleated Red Blood Cells 0.0 0.0-0.19 % Sodium Level 138 136-145 mmol/L Potassium Level 4.3 3.5-5.1 mmol/L Chloride Level 99 L 101-111 mmol/L Carbon Dioxide Level 38 H 21-32 mmol/L Blood Urea Nitrogen 22 H 7-18 mg/dL Creatinine 0.6 0.5-1.3 mg/dL Glomerular Filtration Rate Calc 110 >90 mL/min Random Glucose 96 70-105 mg/dL Total Calcium 9.3 8.5-10.1 mg/dL Total Bilirubin 0.6 0.2-1.0 mg/dL Aspartate Amino Transf (AST/SGOT) 23 10-37 U/L Alanine Aminotransferase (ALT/SGPT) 26 12-78 U/L Alkaline Phosphatase 106 50-136 U/L Total Protein 7.2 6.0-8.3 g/dL Albumin 2.6 L 3.5-5.0 g/dL Bedside Glucose Comment Notified Nurse Test 03/11/25 04:28 03/10/25 20:42 Range/Units Immature Granulocyte % (Auto) 0.3 0-1 % Neutrophils (%) (Auto) 73.7 40.0-77.0 % Lymphocytes (%) (Auto) 11.1 L 21.0-51.0 % Monocytes (%) (Auto) 14.6 H 3.0-13.0 % Eosinophils (%) (Auto) 0.1 0.0-8.0 % Basophils (%) (Auto) 0.2 0.0-5.0 % Neutrophils # (Auto) 7.7 1.8-7.7 K/uL Lymphocytes # (Auto) 1.2 1.0-4.8 K/uL Monocytes # (Auto) 1.5 H 0.1-1.0 K/uL Eosinophils # (Auto) 0.01 0.00-0.70 K/uL Basophils # (Auto) 0.02 0.00-0.20 K/uL Absolute Immature Granulocyte (auto 0.03 0-1 K/uL Phosphorus Level 3.8 2.5-4.9 mg/dL Magnesium Level 2.00 1.80-2.40 mg/dL Urine Opiates Screen NEGATIVE NEGATIVE Urine Barbiturates Screen NEGATIVE NEGATIVE Urine Phencyclidine Screen NEGATIVE NEGATIVE Urine Amphetamines Screen NEGATIVE NEGATIVE Urine Benzodiazepines Screen NEGATIVE NEGATIVE Urine Cocaine Screen NEGATIVE NEGATIVE Urine Marijuana (THC) Screen NEGATIVE NEGATIVE Current Medications Medications (Trade) Dose Ordered Sig/Nicolasa Route PRN Reason Start Time Stop Time Status Last Admin Dose Admin Acetaminophen (TYLenol 325MG TAB) 650 mg Q6H PRN PO TEMPERATURE GREATER THAN 101.5 03/10/25 20:30 04/09/25 20:29 Acetaminophen/ Codeine Phosphate (TYLenol-coDEINE TAB) 1 tab Q6H PRN PO MODERATE PAIN (4-6) 03/11/25 13:00 04/10/25 12:59 Albuterol (DUOneb) 1 UDVIAL [id number] IH 03/11/25 00:00 04/10/25 00:00 03/12/25 11:03 1 UDVIAL Baclofen (Baclofen) 20 mg BID PO 03/11/25 21:00 04/10/25 20:59 03/12/25 09:40 20 MG Budesonide (Pulmicort 0.5 Mg/2ml) 0.5 mg BIDRESP IH 03/11/25 06:00 04/10/25 05:59 03/12/25 06:16 0.5 MG Duloxetine HCl (CymbALTA 30 mg CAP) 30 mg DAILY PO 03/11/25 09:00 04/10/25 08:59 03/12/25 09:40 30 MG Enoxaparin Sodium (Lovenox) 40 mg DAILY SQ 03/11/25 09:00 04/10/25 08:59 03/12/25 09:40 40 MG Famotidine (Pepcid 20mg Tab) 20 mg DAILY PO 03/11/25 09:00 04/10/25 08:59 03/12/25 09:40 20 MG Hydralazine HCl (APRESOLine 20MG INJ) 10 mg Q6H PRN IV For:SBP above 160;DBP above 90 03/10/25 20:30 04/09/25 20:29 Insulin Human Regular (humuLIN R 100 UNIT/ML 3ML) INSULIN SLIDING SCAL... ACHS SQ 03/10/25 21:00 04/09/25 20:59 Ketorolac Tromethamine (toRADol) 30 mg Q6H PRN IM SEVERE PAIN (7-10) 03/11/25 13:00 03/16/25 12:59 03/11/25 18:36 30 MG Lidocaine (Lidocaine Patch 4%) 1 each DAILY TP 03/12/25 09:00 04/11/25 08:59 03/12/25 09:40 1 EACH Morphine Sulfate (morPHINE 4MG SYG) 2 mg Q4H PRN IVP SEVERE PAIN (7-10) 03/10/25 20:30 03/11/25 11:16 DC 03/11/25 08:12 2 MG Morphine Sulfate (morPHINE 4MG SYG) 4 mg Q3H3 PRN IVP SEVERE PAIN (7-10) 03/11/25 11:30 03/18/25 11:29 03/12/25 13:10 4 MG Ondansetron HCl (zoFRAN 4MG INJ) 4 mg Q6H PRN IV NAUSEA/VOMITING 03/10/25 20:30 04/09/25 20:29 Pregabalin (LYRica 25MG) 50 mg BID PO 03/10/25 21:00 04/09/25 20:59 03/12/25 09:40 50 MG Pregabalin ([id number]) 75 mg BID PO 03/10/25 21:00 03/10/25 20:31 DC DIAGNOSTICS / RADIOLOGY: [ ] ASSESSMENT: [Intractable back pain, POA L2-S1 disc bulging, by MRI on 02/13/2025 T12, L1, L2 compression fracture by MRI on 02/13/2025 Chronic respiratory in failure JORDI COPD Asthma Emphysema Hypertension Diabetes mellitius type2 Hyperlipidemia ] PLAN: [Intractable back pain: We will follow up with Neurosurgeon on-call, Dr. Oconnor [place] 50 mg by mouth twice daily. As needed analgesia with morphine 2 mg IV every 4 hours. Patient received Norflex, triamcinolone, tramadol, lidocaine in the emergency department. Diabetes mellitus type 2: Check hemoglobin A1c in a.m. Glucometer checks a.c. and HS 1800 ADA diet Humulin R sliding scale Chronic respiratory failure, JORDI, COPD, asthma, emphysema, hypertension, hyperlipidemia: Patient is currently on BiPAP support Continue with-DuoNebs every 6 hours, Pulmicort twice daily. Hydralazine 10 mg IV every 4 hours for systolic blood pressure greater than 160 mmHg Continue to follow up with pulmonology team for further recommendation We will repeat labs tomorrow GI prophylaxis, famotidine DVT prophylaxis, Lovenox Case discussed with Dr. Cosme, above plan was formulated ] ATTESTATION BY PHYSICIAN I have seen and examined the patient. I reviewed the documentation, medical decision making, and treatment plan as noted by the mid-level provider above. I agree with the findings and plan of care. Leslie Cosme MD, JANICE B [facility] Mar 12, 2025 14:59
[2025-03-12] MEDS ORDERED: BENZONATATE 100 MG CAPSULE PO PRN (15:30)
[2025-03-12] MEDS: SODIUM CHLORIDE 3% FOR INHALATION 4 ML/AMP VIAL.NEB IH ONE (19:09)
[2025-03-12] MEDS: DOXYCYCLINE HYCLATE 100 MG TABLET PO SCH (20:25)
[2025-03-13] VITALS (18 sets, daily range): BP systolic 124–145; BP diastolic 73–79; PULSE 71–96; RESP 18–24; TEMP 97.5–98.5; O2SAT 93–98
--- NOTE | 2025-03-13 00:03 | PN ---
[facility] PROGRESS NOTE Date Patient Seen: Mar 12, 2025 Time of Visit: 13:54 Supervising Physician: DR. DELONTE THOMAS Primary Care Physician: [ ] Outpatient Specialists: [ ] Inpatient Consults: [ ] PROBLEM LIST: CO2 retention / acute on Chronic hypercapnia Intractable back pain, POA L2-S1 disc bulging, by MRI on 02/13/2025 T12, L1, L2 compression fracture by MRI on 02/13/2025 Chronic respiratory in failure JORDI COPD Asthma Emphysema Hypertension Diabetes mellitius type2 Hyperlipidemia INTERVAL HISTORY: Patient is seen and examined at the bedside, who continues with intractable pain denies fever, chills, nausea or vomiting, noted with CO2 retention on ABG;s Bipap settings has been adjusted to AVAPS TV600, R20 PIP 12 O2% 38% plan is to continue with pain control management, add laxatives and repeat chest x ray and labs. REVIEW OF SYSTEMS: 12 point ROS reviewed with patient. Pertinent positives mentioned above. Otherwise negative. PHYSICAL EXAM: GENERAL: alert, weak, awake oriented x 3 HEENT: EOMI, Sclera non icteric, moist mucosa NECK: Supple, no JVD, trachea midline LUNGS: Clear breath sounds bilaterally. No wheezes HEART: Regular rate and rhythm. Normal S1 and S2, without murmurs ABD: Abdomen soft, nontender. Bowel sounds present EXT: No clubbing cyanosis or edema NEURO: Alert and oriented to person, follows commands Vital Signs (last 8hr) Date Time Temp Pulse Resp B/P (MAP) Pulse Ox O2 Delivery O2 Flow Rate FiO2 03/12/25 23:52 97.3 85 16 134/69 91 BIPAP 03/12/25 20:00 96.3 81 18 154/84 96 BIPAP 03/12/25 18:44 89 23 38 03/12/25 18:43 89 18 03/12/25 16:14 87 26 38 03/12/25 16:00 98.1 94 18 143/79 96 Nasal Cannula 4.0 LABS: Hematology Labs: Test 03/12/25 04:35 03/11/25 04:28 Range/Units White Blood Count 10.1 4.8-10.8 K/uL Red Blood Count 3.94 L 4.50-6.20 MIL/uL Hemoglobin 10.9 L 14.0-18.0 g/dL Hematocrit 37.1 L 42-54 % Mean Corpuscular Volume 94.2 79-99 fL Mean Corpuscular Hemoglobin 27.7 27.0-33.0 pg Mean Corpuscular Hemoglobin Concent 29.4 L 32.0-36.0 g/dL Red Cell Distribution Width 14.6 11.0-15.5 % Platelet Count 252 130-400 K/uL Mean Platelet Volume 9.7 7.5-10.5 fL Nucleated Red Blood Cells 0.0 0.0-0.19 % Immature Granulocyte % (Auto) 0.3 0-1 % Neutrophils (%) (Auto) 73.7 40.0-77.0 % Lymphocytes (%) (Auto) 11.1 L 21.0-51.0 % Monocytes (%) (Auto) 14.6 H 3.0-13.0 % Eosinophils (%) (Auto) 0.1 0.0-8.0 % Basophils (%) (Auto) 0.2 0.0-5.0 % Neutrophils # (Auto) 7.7 1.8-7.7 K/uL Lymphocytes # (Auto) 1.2 1.0-4.8 K/uL Monocytes # (Auto) 1.5 H 0.1-1.0 K/uL Eosinophils # (Auto) 0.01 0.00-0.70 K/uL Basophils # (Auto) 0.02 0.00-0.20 K/uL Absolute Immature Granulocyte (auto 0.03 0-1 K/uL Chemistry Labs: Test 03/12/25 19:47 03/12/25 04:35 03/11/25 16:41 03/11/25 04:28 Range/Units Whole Blood Glucose 120 H 70-110 MG/DL Sodium Level 138 136-145 mmol/L Potassium Level 4.3 3.5-5.1 mmol/L Chloride Level 99 L 101-111 mmol/L Carbon Dioxide Level 38 H 21-32 mmol/L Blood Urea Nitrogen 22 H 7-18 mg/dL Creatinine 0.6 0.5-1.3 mg/dL Glomerular Filtration Rate Calc 110 >90 mL/min Random Glucose 96 70-105 mg/dL Total Calcium 9.3 8.5-10.1 mg/dL Total Bilirubin 0.6 0.2-1.0 mg/dL Aspartate Amino Transf (AST/SGOT) 23 10-37 U/L Alanine Aminotransferase (ALT/SGPT) 26 12-78 U/L Alkaline Phosphatase 106 50-136 U/L Total Protein 7.2 6.0-8.3 g/dL Albumin 2.6 L 3.5-5.0 g/dL Bedside Glucose Comment Notified Nurse Phosphorus Level 3.8 2.5-4.9 mg/dL Magnesium Level 2.00 1.80-2.40 mg/dL DIAGNOSTICS / RADIOLOGY RESULTS: [ ] PLAN Miralax 17 gr po daily Colace 100 mg po BID prn for constipation Place on AVAPS settings Obtain chest x ray obtain ABG's repeat CBC and CMP Toradol 30 mg po every 6n hrs prn for pain Resume tylenol #3 Resume Baclofen NEURO: Minimize central acting medications as possible. Maintain fall precautions, adequate lighting during the day PULMONARY: Supplemental 02 as needed. Maintain aspiration precautions at all times CARDIOVASCULAR: Follow hemodynamics. Vital signs per facility protocol GI & NUTRITION: Continue with nutritional support. Continue stool softeners and laxatives as needed. KIDNEYS & ELECTROLYTES: Strict monitoring of intake, output and overall fluid balance. Avoid nephrotoxic medications to the extent possible. Medications to be dosed according to renal function. Monitor electrolytes and replace as needed ENDOCRINE: Maintain blood glucose between 100-180 at all times. Hypoglycemia protocol in place INFECTIOUS DISEASE: Trend temperature, WBC and procalcitonin level Follow cultures, deescalate antibiotics as soon as possible. Panculture if new onset fever ONCOLOGY/HEMATOLOGY/COAGULATION: Monitor for s/s of bleeding Monitor hemoglobin, coagulation studies as needed SKIN: Pressure ulcer prevention per facility protocol Specialty mattress ORTHO/REHAB: Continue PT/OT Prophylaxis: Continue GI and DVT prophylaxis Code Status: Full Resuscitation Disposition: TBD CRITICAL CARE TIME WITH PATIENT IS 45 MINUTES ATTESTATION BY PHYSICIAN Documentation assistance provided by a scribe, information recorded by the scribe was done at my direction and has been reviewed and validated by me." DELONTE THOMAS MD I personally scribed for DELONTE THOMAS MD (PREET) on 03/13/25 at 00:03. Electronically submitted by Florina Harris ([email or web address]). DELONTE THOMAS MD Mar 13, 2025 00:03
[2025-03-13] MEDS: SODIUM CHLORIDE 3% FOR INHALATION 4 ML/AMP VIAL.NEB IH ONE ×2 (00:07→06:24)
[2025-03-13 03:13] LABS: ABG BASE EXCESS 8.2 mmol/L (-2.0-3.0); ABG HCO3 37.2 mmol/L (21.0-28.0); ABG OXYGEN SATURATION 94.3 % (94.0-98.0); ABG PCO2 72 mmHg (35-48); ABG PH 7.330 (7.350-7.450); DEVICE COMMENT RR RN DANNY; PO2, ARTERIAL BG 78.8 mmHg (83.0-108.0); TEMPERATURE, CELSIUS BG 37.0 CELSIUS (35.5-37.0); VENT MODE, BG AVAPS EPAP 7 (ROOM AIR)
[2025-03-13 05:12] LABS: NUCLEATED RED BLOOD CELLS 0.0 % (0.0-0.19); PLATELET COUNT (AUTO) 258.0 K/uL (130-400); RED BLOOD CELL COUNT(AUTO) 3.86 MIL/uL (4.50-6.20); RED CELL DISTRIBUTION WIDTH 14.3 % (11.0-15.5); WHITE BLOOD COUNT (AUTO) 7.0 K/uL (4.8-10.8)
[2025-03-13 05:54] LABS: ASPARTATE AMINOTRANSFERASE 21.0 U/L (10-37); CREATININE 0.5 mg/dL (0.5-1.3); GLOMERULAR FILTR. RATE CALC 116.0 mL/min (>90); GLUCOSE,RANDOM 135.0 mg/dL (70-105); PHOSPHORUS 2.7 mg/dL (2.5-4.9); SODIUM SERUM 141.0 mmol/L (136-145); TOTAL PROTEIN, SERUM 7.0 g/dL (6.0-8.3); UREA NITROGEN, BLOOD 19.0 mg/dL (7-18)
[2025-03-13] MEDS: TIZANIDINE HCL 2 MG TABLET PO SCH (08:51)
--- NOTE | 2025-03-13 12:24 | HMCIMG ---
CHEST 1VW REASON: sob COMPARISON: Prior study from 02/16/2025 is available. FINDINGS: Single view of the chest was obtained. Lungs are clear. Heart size is normal. There is no pulmonary vascular congestion. Mediastinum and bony thorax appear unremarkable. IMPRESSION: 1. Normal single view chest x-ray.
--- NOTE | 2025-03-13 14:13 | PN ---
[facility] PROGRESS NOTE Date of Service: Mar 13, 2025 Time of Service: 14:10 SUBJECTIVE: [Patient was evaluated this morning in his room ([id number]). He continues to require BiPAP support and is now unable to tolerate any time off the device. Nursing staff report that when BiPAP is removed, he becomes increasingly dyspneic and anxious. Overnight, his CO? level increased to 89, prompting pulmonology to round and adjust his BiPAP settings. Despite these adjustments, he remains dependent on continuous BiPAP support and is not tolerating any breaks from the device. 03/13/2025 Patient is seen earlier patient is lying in bed currently on BiPAP support. Patient is well known for CO2 retention acute on chronic hypercapnia in the past patient also has history of intractable back pain on last admission general surgeon was consulted and was recommending surgery but patient refused and wanted a 2nd opinion patient was to follow-up with PCP to be referred to a neurosurgeon for 2nd opinion apparently that was not done. We will continue with pain management we will continue to follow pulmonary on BiPAP settings. REVIEW OF SYSTEMS CONSTITUTIONAL: Denies fevers, chills, or night sweats. No unintentional weight loss reported. NEUROLOGICAL: Denies headache, amaurosis fugax, motor weakness, sensory deficit, vertigo/spinning sensation, gait abnormalities, or tremors. ENT: No hearing loss, otalgia, otorrhea, rhinitis, rhinorrhea, hoarseness, or s ore throat. CARDIOVASCULAR: Denies any exertional angina, dyspnea on exertion, orthopnea, paroxysmal nocturnal dyspnea, palpitations, life-threatening arrhythmias, claudication. PULMONARY: Denies any shortness of breath, cough, phlegm/sputum, hemoptysis, pleuritic chest pain. SLEEP: Denies morning headaches, daytime somnolence or napping. Denies difficulty falling asleep, staying asleep, waking from sleep. Denies knowledge of snoring. GASTROINTESTINAL: Denies any type of dysphagia to either liquids or solids. Denies nausea, vomiting, pyrosis, early satiety, abdominal pain, diarrhea, constipation, or changes in stool consistency or caliber. Denies coffee-ground emesis, hematemesis, hematochezia, or melanotic stools. GENITOURINARY: Denies frequency, urgency, nocturia, hematuria or incontinence (Storage/Irritative symptoms.) Low urinary stream, straining to void, urinary intermittency or hesitancy, splitting of the voiding stream, terminal dribbling. ENDOCRINOLOGIC: Denies polyuria, polydipsia, polyphagia or heat/cold intolerances. HEMATOLOGIC: Denies thrombophilia/previous clots, or coagulopathy/bleeding disorders. ONCOLOGIC: Denies personal history of malignancy. DERMATOLOGIC: Denies rashes or pruritus. PSYCHIATRIC: Denies any suicidal or homicidal ideation. Denies hallucinations. PHYSICAL EXAM GENERAL APPEARANCE: The patient is awake, alert, and oriented, in no acute cardiopulmonary distress. NEUROLOGICAL: Cranial nerves II-XII grossly intact. Motor is 5/5 in bilateral upper and lower extremities proximal to distal. No sensory deficits. HEENT: Face is symmetric. Pupils are equal and reactive. Extraocular movements are intact. NECK: Supple. No JVD. No thyromegaly. No submental, submandibular, pre- /postauricular, occipital or supraclavicular lymphadenopathy. CHEST: Normal chest expansion. No Telemetry. LUNGS: Absence of any rales, rhonchi or any wheezing. CARDIOVASCULAR: Regular. S1 and S2 normal. No appreciable rubs, murmurs or gallops. ABDOMEN: Soft, nontender, and nondistended. There is no rebound, voluntary guarding, or rigidity. : Deferred. No Michele. EXTREMITIES: Non-edematous and not cyanotic. No clubbing. Good capillary refill. SKIN: No skin breakdown. Vital Signs (last 8hr) Date Time Temp Pulse Resp B/P (MAP) Pulse Ox O2 Delivery O2 Flow Rate FiO2 03/13/25 12:00 97.5 88 18 136/79 93 BIPAP 03/13/25 11:08 90 18 03/13/25 09:26 92 22 38 03/13/25 08:51 90 23 N/Cannula Oximizer Hi LPM 4.0 36 03/13/25 08:00 97.9 87 18 144/79 90 Room Air 03/13/25 06:30 90 24 38 03/13/25 06:29 85 18 LABS: Laboratory: Test 03/13/25 11:02 03/13/25 04:47 03/13/25 03:12 03/12/25 12:42 Range/Units Whole Blood Glucose 150 H 70-110 MG/DL White Blood Count 7.0 4.8-10.8 K/uL Red Blood Count 3.86 L 4.50-6.20 MIL/uL Hemoglobin 10.8 L 14.0-18.0 g/dL Hematocrit 35.0 L 42-54 % Mean Corpuscular Volume 90.7 79-99 fL Mean Corpuscular Hemoglobin 28.0 27.0-33.0 pg Mean Corpuscular Hemoglobin Concent 30.9 L 32.0-36.0 g/dL Red Cell Distribution Width 14.3 11.0-15.5 % Platelet Count 258 130-400 K/uL Mean Platelet Volume 9.7 7.5-10.5 fL Nucleated Red Blood Cells 0.0 0.0-0.19 % Sodium Level 141 136-145 mmol/L Potassium Level 4.6 3.5-5.1 mmol/L Chloride Level 99 L 101-111 mmol/L Carbon Dioxide Level 38 H 21-32 mmol/L Blood Urea Nitrogen 19 H 7-18 mg/dL Creatinine 0.5 0.5-1.3 mg/dL Glomerular Filtration Rate Calc 116 >90 mL/min Random Glucose 135 H 70-105 mg/dL Lactic Acid Level 1.0 0.8-2.5 mmol/L Total Calcium 9.0 8.5-10.1 mg/dL Phosphorus Level 2.7 2.5-4.9 mg/dL Magnesium Level 1.90 1.80-2.40 mg/dL Total Bilirubin 0.5 0.2-1.0 mg/dL Aspartate Amino Transf (AST/SGOT) 21 10-37 U/L Alanine Aminotransferase (ALT/SGPT) 26 12-78 U/L Alkaline Phosphatase 106 50-136 U/L C-Reactive Protein, Quantitative 164.90 H 0.5-3.0 mg/L B-Type Natriuretic Peptide 36 0-100 pg/mL Total Protein 7.0 6.0-8.3 g/dL Albumin 2.5 L 3.5-5.0 g/dL Procalcitonin < 0.05 L 0.05-0.5 ng/mL Thyroid Stimulating Hormone (TSH) 0.29 #L 0.36-3.74 uIU/mL Blood Gas Specimen Type Arterial Arterial Blood pH 7.330 L 7.350-7.450 Arterial Blood Partial Pressure CO2 72 *H 35-48 mmHg Arterial Blood Partial Pressure O2 78.8 L 83.0-108.0 mmHg Arterial Blood HCO3 37.2 H 21.0-28.0 mmol/L Arterial Blood Oxygen Saturation 94.3 94.0-98.0 % Arterial Blood Base Excess 8.2 H -2.0-3.0 mmol/L Blood Gas Temperature 37.0 35.5-37.0 CELSIUS Blood Gas Respiration Rate 20.0 min. Blood Gas Vent Mode AVAPS EPAP 7 ROOM AIR FiO2 38.0 % Blood Gas Tidal Volume 600 ml Blood Gas Specimen Comment RR ERIC MORGAN Blood Gas Flow-by 4.00 0.00-15.00 L/min Test 03/11/25 16:41 Range/Units Bedside Glucose Comment Notified Nurse Current Medications Medications (Trade) Dose Ordered Sig/Nicolasa Route PRN Reason Start Time Stop Time Status Last Admin Dose Admin Acetaminophen (TYLenol 325MG TAB) 650 mg Q6H PRN PO TEMPERATURE GREATER THAN 101.5 03/10/25 20:30 04/09/25 20:29 Acetaminophen/ Codeine Phosphate (TYLenol-coDEINE TAB) 1 tab Q6H PRN PO MODERATE PAIN (4-6) 03/11/25 13:00 03/13/25 07:46 DC Albuterol (DUOneb) 1 UDVIAL [id number] IH 03/11/25 00:00 04/10/25 00:00 03/13/25 11:07 1 UDVIAL Baclofen (Baclofen) 20 mg BID PO 03/11/25 21:00 04/10/25 20:59 03/13/25 08:51 20 MG Benzonatate (Tessalon 100mg Caps) 100 mg BID PRN PO COUGH 03/12/25 15:30 04/11/25 15:29 Budesonide (Pulmicort 0.5 Mg/2ml) 0.5 mg BIDRESP IH 03/11/25 06:00 04/10/25 05:59 03/13/25 06:24 0.5 MG Bupropion HCl (WellBUTrin SR 150MG) 150 mg DAILY PO 03/13/25 09:00 04/12/25 08:59 03/13/25 08:51 150 MG Cefepime HCl (MAXipime 2 gm vial) 2 gm Q8H IVPB 03/12/25 15:30 03/22/25 15:29 03/13/25 08:50 2 GM Dexamethasone Sodium Phosphate (dexaMETHasone 4MG/ML 1ML VIAL) 6 mg Q12H IVP 03/12/25 15:30 04/11/25 15:29 03/13/25 03:03 6 MG Docusate Sodium (COLace 100MG CAP) 100 mg BID PRN PO CONSTIPATION 03/12/25 15:30 04/11/25 15:29 Doxycycline Hyclate (Doxycycline Hyclate) 100 mg BID PO 03/12/25 21:00 03/22/25 20:59 03/13/25 08:51 100 MG Duloxetine HCl (CymbALTA 30 mg CAP) 30 mg DAILY PO 03/11/25 09:00 04/10/25 08:59 03/13/25 08:51 30 MG Enoxaparin Sodium (Lovenox) 40 mg DAILY SQ 03/11/25 09:00 04/10/25 08:59 03/13/25 08:51 40 MG Famotidine (Pepcid 20mg Tab) 20 mg DAILY PO 03/11/25 09:00 04/10/25 08:59 03/13/25 08:51 20 MG Hydralazine HCl (APRESOLine 20MG INJ) 10 mg Q6H PRN IV For:SBP above 160;DBP above 90 03/10/25 20:30 04/09/25 20:29 Insulin Human Regular (humuLIN R 100 UNIT/ML 3ML) INSULIN SLIDING SCAL... ACHS SQ 03/10/25 21:00 04/09/25 20:59 Ketorolac Tromethamine (toRADol) 30 mg Q6H PRN IM MODERATE PAIN (4-6) 03/11/25 13:00 03/16/25 12:59 03/13/25 13:09 30 MG Lidocaine (Lidocaine Patch 4%) 1 each DAILY TP 03/12/25 09:00 04/11/25 08:59 03/13/25 08:51 1 EACH Montelukast Sodium (SinguLAIR) 10 mg DAILY PO 03/13/25 09:00 04/12/25 08:59 03/13/25 08:51 10 MG Morphine Sulfate (morPHINE 4MG SYG) 2 mg Q4H PRN IVP SEVERE PAIN (7-10) 03/10/25 20:30 03/11/25 11:16 DC 03/11/25 08:12 2 MG Morphine Sulfate (morPHINE 4MG SYG) 4 mg Q3H3 PRN IVP SEVERE PAIN (7-10) 03/11/25 11:30 03/18/25 11:29 03/13/25 08:52 4 MG Ondansetron HCl (zoFRAN 4MG INJ) 4 mg Q6H PRN IV NAUSEA/VOMITING 03/10/25 20:30 04/09/25 20:29 Polyethylene Glycol (MIRalax 3350 17 GM POWD.PACK) 17 gm DAILY PO 03/12/25 15:30 04/11/25 15:29 03/13/25 08:51 17 GM Pregabalin (LYRica 25MG) 50 mg BID PO 03/10/25 21:00 04/09/25 20:59 03/13/25 08:51 50 MG Pregabalin ([id number]) 75 mg BID PO 03/10/25 21:00 03/10/25 20:31 DC Tizanidine HCl (Tizanidine HCl) 4 mg AM PO 03/13/25 09:00 04/12/25 08:59 03/13/25 08:51 4 MG DIAGNOSTICS / RADIOLOGY: [ ] ASSESSMENT: [Intractable back pain, POA L2-S1 disc bulging, by MRI on 02/13/2025 T12, L1, L2 compression fracture by MRI on 02/13/2025 Chronic respiratory in failure JORDI COPD Asthma Emphysema Hypertension Diabetes mellitius type2 Hyperlipidemia ] PLAN: [Intractable back pain: Neurosurgeon on-call Dr. Manriquez has seen patient in the past refused surgery we will wait for his recommendations on this admission Lyrica 50 mg by mouth twice daily. As needed analgesia with morphine 2 mg IV every 4 hours. Patient received Norflex, triamcinolone, tramadol, lidocaine in the emergency department. Diabetes mellitus type 2: Check hemoglobin A1c in a.m. Glucometer checks a.c. and HS 1800 ADA diet Humulin R sliding scale Chronic respiratory failure, JORDI, COPD, asthma, emphysema, hypertension, hyperlipidemia: Patient is currently on BiPAP support Continue with-DuoNebs every 6 hours, Pulmicort twice daily. Hydralazine 10 mg IV every 4 hours for systolic blood pressure greater than 160 mmHg Continue to follow up with pulmonology team for further recommendation We will repeat labs tomorrow GI prophylaxis, famotidine DVT prophylaxis, Lovenox Case discussed with Dr. Cosme, above plan was formulated ] ATTESTATION BY PHYSICIAN I have seen and examined the patient. I reviewed the documentation, medical decision making, and treatment plan as noted by the mid-level provider above. I agree with the findings and plan of care. Leslie Cosme MD, ELIZABETH NP Mar 13, 2025 14:13
--- NOTE | 2025-03-13 17:04 | HMCIMG ---
EXAM: CR Chest, 1 View. CLINICAL HISTORY: COPD COMPARISON: None provided. FINDINGS: LUNGS: No active infiltrate PLEURAL SPACES: No pleural effusion or pneumothorax. MEDIASTINUM: Prominent cardiac silhouette. BONES: No aggressive appearing osseous lesion seen. IMPRESSION: 1. Prominent cardiac silhouette. 2. No active infiltrate /[place]
--- NOTE | 2025-03-13 18:14 | PN ---
[facility] PROGRESS NOTE Date Patient Seen: Mar 13, 2025 Time of Visit: 13:09 Supervising Physician: DR. DELONTE THOMAS Primary Care Physician: [ ] Outpatient Specialists: [ ] Inpatient Consults: [ ] PROBLEM LIST: CO2 retention / acute on Chronic hypercapnia Intractable back pain, POA L2-S1 disc bulging, by MRI on 02/13/2025 T12, L1, L2 compression fracture by MRI on 02/13/2025 Chronic respiratory in failure JORDI COPD Asthma Emphysema Hypertension Diabetes mellitius type2 Hyperlipidemia INTERVAL HISTORY: 03/12 Patient is seen and examined at the bedside, who continues with intractable pain denies fever, chills, nausea or vomiting, noted with CO2 retention on ABG;s Bipap settings has been adjusted to AVAPS TV600, R20 PIP 12 O2% 38% plan is to continue with pain control management, add laxatives and repeat chest x ray and labs. 03/13/2025 Patient is awake, alert, well oriented, still with significant pain despite the use of morphine, baclofen and Tylenol #3 plan is to discontinue Morphine and start him on Dilaudid for severe pain and [place] for moderate pain, both prn only otherwise continues with hypercapnia with PCO2 of 70's, he will continue with respiratory support AVAPS, we will continue monitoring closely. REVIEW OF SYSTEMS: 12 point ROS reviewed with patient. Pertinent positives mentioned above. Otherwise negative. PHYSICAL EXAM: GENERAL: alert, weak, awake oriented x 3 HEENT: EOMI, Sclera non icteric, moist mucosa NECK: Supple, no JVD, trachea midline LUNGS: Clear breath sounds bilaterally. No wheezes HEART: Regular rate and rhythm. Normal S1 and S2, without murmurs ABD: Abdomen soft, nontender. Bowel sounds present EXT: No clubbing cyanosis or edema NEURO: Alert and oriented to person, follows commands Vital Signs (last 8hr) Date Time Temp Pulse Resp B/P (MAP) Pulse Ox O2 Delivery O2 Flow Rate FiO2 03/13/25 16:00 98.4 83 18 124/74 93 BIPAP 03/13/25 14:41 96 23 38 03/13/25 12:00 97.5 88 18 136/79 93 BIPAP 03/13/25 11:08 90 18 LABS: Hematology Labs: Test 03/13/25 04:47 Range/Units White Blood Count 7.0 4.8-10.8 K/uL Red Blood Count 3.86 L 4.50-6.20 MIL/uL Hemoglobin 10.8 L 14.0-18.0 g/dL Hematocrit 35.0 L 42-54 % Mean Corpuscular Volume 90.7 79-99 fL Mean Corpuscular Hemoglobin 28.0 27.0-33.0 pg Mean Corpuscular Hemoglobin Concent 30.9 L 32.0-36.0 g/dL Red Cell Distribution Width 14.3 11.0-15.5 % Platelet Count 258 130-400 K/uL Mean Platelet Volume 9.7 7.5-10.5 fL Nucleated Red Blood Cells 0.0 0.0-0.19 % Chemistry Labs: Test 03/13/25 15:02 03/13/25 04:47 Range/Units Whole Blood Glucose 134 H 70-110 MG/DL Sodium Level 141 136-145 mmol/L Potassium Level 4.6 3.5-5.1 mmol/L Chloride Level 99 L 101-111 mmol/L Carbon Dioxide Level 38 H 21-32 mmol/L Blood Urea Nitrogen 19 H 7-18 mg/dL Creatinine 0.5 0.5-1.3 mg/dL Glomerular Filtration Rate Calc 116 >90 mL/min Random Glucose 135 H 70-105 mg/dL Lactic Acid Level 1.0 0.8-2.5 mmol/L Total Calcium 9.0 8.5-10.1 mg/dL Phosphorus Level 2.7 2.5-4.9 mg/dL Magnesium Level 1.90 1.80-2.40 mg/dL Total Bilirubin 0.5 0.2-1.0 mg/dL Aspartate Amino Transf (AST/SGOT) 21 10-37 U/L Alanine Aminotransferase (ALT/SGPT) 26 12-78 U/L Alkaline Phosphatase 106 50-136 U/L C-Reactive Protein, Quantitative 164.90 H 0.5-3.0 mg/L B-Type Natriuretic Peptide 36 0-100 pg/mL Total Protein 7.0 6.0-8.3 g/dL Albumin 2.5 L 3.5-5.0 g/dL Procalcitonin < 0.05 L 0.05-0.5 ng/mL Thyroid Stimulating Hormone (TSH) 0.29 #L 0.36-3.74 uIU/mL DIAGNOSTICS / RADIOLOGY RESULTS: [ ] PLAN Add [place] PRN for modera pain Dilaudid 1 mg every 4 hours prn for severe pain Miralax 17 gr po daily Colace 100 mg po BID prn for constipation Place on AVAPS settings Obtain chest x ray obtain ABG's repeat CBC and CMP Toradol 30 mg po every 6n hrs prn for pain Resume tylenol #3 Resume Baclofen NEURO: Minimize central acting medications as possible. Maintain fall precautions, adequate lighting during the day PULMONARY: Supplemental 02 as needed. Maintain aspiration precautions at all times CARDIOVASCULAR: Follow hemodynamics. Vital signs per facility protocol GI & NUTRITION: Continue with nutritional support. Continue stool softeners and laxatives as needed. KIDNEYS & ELECTROLYTES: Strict monitoring of intake, output and overall fluid balance. Avoid nephrotoxic medications to the extent possible. Medications to be dosed according to renal function. Monitor electrolytes and replace as needed ENDOCRINE: Maintain blood glucose between 100-180 at all times. Hypoglycemia protocol in place INFECTIOUS DISEASE: Trend temperature, WBC and procalcitonin level Follow cultures, deescalate antibiotics as soon as possible. Panculture if new onset fever ONCOLOGY/HEMATOLOGY/COAGULATION: Monitor for s/s of bleeding Monitor hemoglobin, coagulation studies as needed SKIN: Pressure ulcer prevention per facility protocol Specialty mattress ORTHO/REHAB: Continue PT/OT Prophylaxis: Continue GI and DVT prophylaxis Code Status: Full Resuscitation Disposition: TBD CRITICAL CARE TIME WITH PATIENT IS 45 MINUTES ATTESTATION BY PHYSICIAN Documentation assistance provided by a scribe, information recorded by the scribe was done at my direction and has been reviewed and validated by me." DELONTE THOMAS MD I personally scribed for DELONTE THOMAS MD (PREET) on 03/13/25 at 18:14. Electronically submitted by Florina Harris ([email or web address]). DELONTE THOMAS MD Mar 13, 2025 18:14
[2025-03-14] VITALS (16 sets, daily range): BP systolic 121–161; BP diastolic 66–86; PULSE 72–111; RESP 18–24; TEMP 97.1–98.5; O2SAT 95–98
[2025-03-14 03:07] LABS: ABG BASE EXCESS 8.8 mmol/L (-2.0-3.0); ABG HCO3 36.2 mmol/L (21.0-28.0); ABG OXYGEN SATURATION 96.9 % (94.0-98.0); ABG PCO2 61 mmHg (35-48); ABG PH 7.392 (7.350-7.450); DEVICE COMMENT LR RN; PO2, ARTERIAL BG 93.9 mmHg (83.0-108.0); TEMPERATURE, CELSIUS BG 37.0 CELSIUS (35.5-37.0); VENT MODE, BG AVAPS EPAP7 (ROOM AIR)
[2025-03-14 04:46] LABS: NUCLEATED RED BLOOD CELLS 0.2 % (0.0-0.19); PLATELET COUNT (AUTO) 249.0 K/uL (130-400); RED BLOOD CELL COUNT(AUTO) 3.8 MIL/uL (4.50-6.20); RED CELL DISTRIBUTION WIDTH 14.2 % (11.0-15.5); WHITE BLOOD COUNT (AUTO) 9.5 K/uL (4.8-10.8)
[2025-03-14 05:00] LABS: CREATININE 0.5 mg/dL (0.5-1.3); GLOMERULAR FILTR. RATE CALC 116.0 mL/min (>90); GLUCOSE,RANDOM 111.0 mg/dL (70-105); PHOSPHORUS 2.1 mg/dL (2.5-4.9); SODIUM SERUM 138.0 mmol/L (136-145); UREA NITROGEN, BLOOD 14.0 mg/dL (7-18)
--- NOTE | 2025-03-14 08:21 | HMCIMG ---
EXAM: MR Lumbar Spine Without Intravenous Contrast. CLINICAL HISTORY: Pain. TECHNIQUE: Magnetic resonance images of the lumbar spine in multiple planes. CONTRAST: None. COMPARISON: Prior lumbar spine radiograph dated 10 March 2025 and MRI lumbar spine dated 14 February 2025. FINDINGS: For this examination, spinal levels were labeled assuming five [id number], lumbar-type vertebrae, with the inferior labeled L5. No acute fracture. Normal lordotic curvature. Acute axial compression fracture of the L1 vertebra with diffuse bone marrow edema. Chronic anterior wedge compression fractures of the T11, T12, and L2 vertebrae. Multilevel disc desiccation and mild disc bulges at L2-L3, L3-L4, L4-L5 levels, and multilevel degenerative facet arthropathy. Bilateral pars defect at the L5-S1 level with grade 1 anterolisthesis of L5 over S1. Minimal retrolisthesis of L4 over L5. Conus medullaris terminates at the T12-L1 level. No abnormal epidural masses. The surrounding soft tissues are unremarkable. Individual spinal levels are described as follows: T12-L1: No disc bulge or herniation. No neural foraminal, lateral recess, or spinal canal stenosis. L1-L2: No disc bulge or herniation. No neural foraminal, lateral recess, or spinal canal stenosis. L2-L3: Mild disc desiccation with asymmetric 3.5 mm right paracentral disc bulge. Mild narrowing of the right lateral recess. Abutment of the right traversing L3 nerve root. No significant neural foraminal narrowing or spinal canal stenosis. L3-L4: Mild disc desiccation with minimal 2.5 mm disc bulge. No neural foraminal, lateral recess, or spinal canal stenosis. Mild bilateral facet arthropathy and ligamentum flavum hypertrophy. L4-L5: Mild disc desiccation. Minimal retrolisthesis of L4 over L5 (2 mm). No significant lateral recess or neural foraminal narrowing or spinal canal stenosis. L5-S1: Bilateral pars defect at the L5-S1 level with grade 1 anterolisthesis of L5 over S1. Broad-based circumferential 4 mm disc bulge with mild bilateral facet arthropathy. Moderate to severe narrowing of the bilateral neural foramina and abutment of the bilateral exiting L5 nerve root. No significant lateral recess or spinal canal stenosis. IMPRESSION: Acute axial compression fracture of the L1 vertebra with diffuse bone marrow edema. Chronic anterior wedge compression fractures of the T11, T12, and L2 vertebrae. Bilateral pars defect at the L5-S1 level with grade 1 anterolisthesis of L5 over S1. Minimal retrolisthesis of L4 over L5. Multilevel disc desiccation and mild disc bulges at L2-L3, L3-L4, L4-L5 levels, and multilevel degenerative facet arthropathy and moderate degenerative changes in the lumbar spine, most prominent at L5-S1 level, as described. Compared to the prior studies, there is no significant interval change. /[place]
--- NOTE | 2025-03-14 10:42 | PN ---
[facility] PROGRESS NOTE Date Patient Seen: Mar 14, 2025 Time of Visit: 10:42 Supervising Physician: Dr Quinn Bakre Primary Care Physician: [ ] Outpatient Specialists: [ ] Inpatient Consults: [ ] PROBLEM LIST: Acute on chronic hypercapnia, hypoxemic respiratory failure Intractable back pain, POA -L2-S1 disc bulging, by MRI on 02/13/2025 -T12, L1, L2 compression fracture by MRI on 02/13/2025 Diabetes mellitus type 2, hyperglycemia, POA Chronic: COPD JORDI Asthma Emphysema advancing for of COPD, not in acute exacerbation Hypertension Hyperlipidemia INTERVAL HISTORY: 03/12 Patient is seen and examined at the bedside, who continues with intractable pain denies fever, chills, nausea or vomiting, noted with CO2 retention on ABG;s Bipap settings has been adjusted to AVAPS TV600, R20 PIP 12 O2% 38% plan is to continue with pain control management, add laxatives and repeat chest x ray and labs. 03/13/2025 Patient is awake, alert, well oriented, still with significant pain despite the use of morphine, baclofen and Tylenol #3 plan is to discontinue Morphine and start him on Dilaudid for severe pain and [place] for moderate pain, both prn only otherwise continues with hypercapnia with PCO2 of 70's, he will continue with respiratory support AVAPS, we will continue monitoring closely. 03/14/2025-The patient assessed and seen resting in bed head of the bed elevated, patient is awake alert and oriented. There are no family members present during my assessment, accompanied by patient's bedside nurse. Patient has a retractable back pain, severe. This is limiting and debilitating for the patient. Clinically being worked up to see if Neurosurgery can do a spinal injection for pain relief management. Continue with respiratory support AVAPS checking ABG with a.m. labs. Patient has become more anxious and agitated, started patient on Seroquel initial dose 12.5 mg p.o. b.i.d., we will titrate medication if needed to provide patient calming environment. REVIEW OF SYSTEMS: 12 point ROS reviewed with patient. Pertinent positives mentioned above. Otherwise negative. PHYSICAL EXAM: GENERAL: alert, weak, awake oriented x 3 HEENT: EOMI, Sclera non icteric, moist mucosa NECK: Supple, no JVD, trachea midline LUNGS: Clear breath sounds bilaterally. No wheezes HEART: Regular rate and rhythm. Normal S1 and S2, without murmurs ABD: Abdomen soft, nontender. Bowel sounds present EXT: No clubbing cyanosis or edema NEURO: Alert and oriented to person, follows commands Vital Signs (last 8hr) Date Time Temp Pulse Resp B/P (MAP) Pulse Ox O2 Delivery O2 Flow Rate FiO2 03/14/25 07:59 97.5 80 19 138/75 91 Nasal Cannula 5.0 03/14/25 06:57 72 21 N/Cannula Oximizer Hi LPM 4.0 36 03/14/25 06:55 79 18 03/14/25 04:00 97.9 78 20 161/86 95 BIPAP LABS: Hematology Labs: Test 03/14/25 04:29 Range/Units White Blood Count 9.5 # 4.8-10.8 K/uL Red Blood Count 3.80 L 4.50-6.20 MIL/uL Hemoglobin 10.6 L 14.0-18.0 g/dL Hematocrit 33.6 L 42-54 % Mean Corpuscular Volume 88.4 79-99 fL Mean Corpuscular Hemoglobin 27.9 27.0-33.0 pg Mean Corpuscular Hemoglobin Concent 31.5 L 32.0-36.0 g/dL Red Cell Distribution Width 14.2 11.0-15.5 % Platelet Count 249 130-400 K/uL Mean Platelet Volume 9.1 7.5-10.5 fL Nucleated Red Blood Cells 0.2 H 0.0-0.19 % Chemistry Labs: Test 03/14/25 05:18 03/14/25 04:29 03/13/25 04:47 Range/Units Whole Blood Glucose 113 H 70-110 MG/DL Sodium Level 138 136-145 mmol/L Potassium Level 4.2 3.5-5.1 mmol/L Chloride Level 98 L 101-111 mmol/L Carbon Dioxide Level 39 H 21-32 mmol/L Blood Urea Nitrogen 14 7-18 mg/dL Creatinine 0.5 0.5-1.3 mg/dL Glomerular Filtration Rate Calc 116 >90 mL/min Random Glucose 111 H 70-105 mg/dL Lactic Acid Level 0.8 0.8-2.5 mmol/L Total Calcium 8.7 8.5-10.1 mg/dL Phosphorus Level 2.1 L 2.5-4.9 mg/dL Magnesium Level 1.90 1.80-2.40 mg/dL Total Bilirubin 0.5 0.2-1.0 mg/dL Aspartate Amino Transf (AST/SGOT) 21 10-37 U/L Alanine Aminotransferase (ALT/SGPT) 26 12-78 U/L Alkaline Phosphatase 106 50-136 U/L C-Reactive Protein, Quantitative 164.90 H 0.5-3.0 mg/L B-Type Natriuretic Peptide 36 0-100 pg/mL Total Protein 7.0 6.0-8.3 g/dL Albumin 2.5 L 3.5-5.0 g/dL Procalcitonin < 0.05 L 0.05-0.5 ng/mL Thyroid Stimulating Hormone (TSH) 0.29 #L 0.36-3.74 uIU/mL DIAGNOSTICS / RADIOLOGY RESULTS: [ ] PLAN : Stool softeners stool laxative scheduled for the patient Enema x1 if necessary Utilizing AVAPS settings ABG with a.m. labs Continue with current medical management especially pain medicine Continue DVT and GI prophylaxis Aspiration precautions Patient out of bed for all meals in a high back chair Fall precautions NEURO: Minimize central acting medications as possible. Maintain fall precautions, adequate lighting during the day PULMONARY: Supplemental 02 as needed. Maintain aspiration precautions at all times CARDIOVASCULAR: Follow hemodynamics. Vital signs per facility protocol GI & NUTRITION: Continue with nutritional support. Continue stool softeners and laxatives as needed. KIDNEYS & ELECTROLYTES: Strict monitoring of intake, output and overall fluid balance. Avoid nephrotoxic medications to the extent possible. Medications to be dosed according to renal function. Monitor electrolytes and replace as needed ENDOCRINE: Maintain blood glucose between 100-180 at all times. Hypoglycemia protocol in place INFECTIOUS DISEASE: Trend temperature, WBC and procalcitonin level Follow cultures, deescalate antibiotics as soon as possible. Panculture if new onset fever ONCOLOGY/HEMATOLOGY/COAGULATION: Monitor for s/s of bleeding Monitor hemoglobin, coagulation studies as needed SKIN: Pressure ulcer prevention per facility protocol Specialty mattress ORTHO/REHAB: Continue PT/OT Prophylaxis: Continue GI and DVT prophylaxis Code Status: Full Resuscitation Disposition: TBD CRITICAL CARE TIME 50 minutes excluding any procedures performed at bedside, this is based upon the patient's criteria involving pulmonary, cardiovascular, and muscle skeletal systems. The case was discussed and reviewed with my supervising physician,Dr. Quinn Baker, in an intervention was developed and implemented. We will be reassess tomorrow when rounding. AGATA RUIZ NP Mar 14, 2025 10:42
--- NOTE | 2025-03-14 16:55 | OP ---
DATE OF PROCEDURE: 03/14/2025 A 59-year-old male patient with history of chronic pain syndrome who had had placement of a dorsal column stimulator, and at this time due to not using the device, I had elected for it to be removed. PREOPERATIVE DIAGNOSES: Chronic pain syndrome, malfunctioning device. SURGEON: Zafar Barajas M.D. ANESTHESIA: General. The patient tolerated the procedure well. There were no complications. Dictation Ends Here TID: [id number] RECEIPT: [id number]
--- NOTE | 2025-03-14 22:00 | NUR ---
BEHAVIOR NURSING STAFF ATTENDED TO PATIENT'S BED ALARM ACTIVATING. PATIENT WAS NOTED ATTEMPTING TO GET OUT OF BED BUT UNABLE TO STAND. PATIENT ASKED FOR HELP TO STAND AND WHEN JF ANDERSON LVN WENT TO HELP LAY HIM DOWN IN BED BY ELEVATING HIS FEET I NOTED HE STARTED KICKING TOWARDS JF Matson LVN. WHEN I ATTEMPTED TO HELP CALM THE PATIENT DOWN HE STARTED TO THROW PUNCHES AND I REDIRECTED THEM WITH AN OPEN PALM AND MANAGED TO GRASP THE PATIENT BY THE FOREARMS TO PREVENT FROM CONTINUING TO PUNCH. PATIENT BECAME EVEN MORE COMBATIVE AND MANAGED TO SCRATCH HIS FOREARMS AND STARTED BLEEDING. BETWEEN JF Muniz LVN, LISANDRA VILLEGAS, KELECHI VITAL, LISSY ROSEN RN AND MYSELF WE WERE ABLE TO CALM PATIENT DOWN AND POSITION PATIENT MIDLINE IN BED. JF Muniz LVN PLACED TEGADERMS ON PATIENT'S SCRATCHES TO PREVENT FROM INFECTION AND FURTHER BLEED. PATIENT LEFT CALM IN BED, MIDLINE, HOB ELEVATED AND PLACED IN LOWEST SETTING. WHEELS LOCKED IN PLACE. CALL LIGHT LEFT WITHIN REACH.
[2025-03-15] VITALS (11 sets, daily range): BP systolic 130–149; BP diastolic 77–90; PULSE 79–109; RESP 17–25; TEMP 97.4–98.7; O2SAT 97–99
--- NOTE | 2025-03-15 05:00 | NUR ---
WANTING TO LEAVE RECEIVED CALL FROM [facility] [employer]. STATED PATIENT HAD CALLED ASKING FOR ACTIVATION OF EMS TO BE TRANSPORTED HOME. I VOICED I WOULD GO AND TALK TO PATIENT. I WENT TO ASK PATIENT ABOUT HIS CALL TO THE POLICE. PATIENT REQUESTING TO LEAVE HOME AGAINST MEDICAL ADVISE. I ADVISED HIM THAT HE WOULD NEED TO FIND A RIDE HOME AND SOMEONE TO BE ABLE TO HELP HIM TRANSFER DOWNSTAIRS BUT IT WAS NOT RECOMMENDED DUE TO NEEDING OXYGEN AND HAS MULTIPLE FRACTURES IN SPINAL COLUMN. PATIENT VOICED HE WOULD FIND SOMEONE TO COME AND PICK HIM UP. I VERBALIZED UNDERSTANDING.
--- NOTE | 2025-03-15 09:42 | PN ---
[facility] PROGRESS NOTE Date of Service: Mar 15, 2025 Time of Service: 09:41 SUBJECTIVE: [Patient was evaluated this morning in his room ([id number]). He continues to require BiPAP support and is now unable to tolerate any time off the device. Nursing staff report that when BiPAP is removed, he becomes increasingly dyspneic and anxious. Overnight, his CO? level increased to 89, prompting pulmonology to round and adjust his BiPAP settings. Despite these adjustments, he remains dependent on continuous BiPAP support and is not tolerating any breaks from the device. 03/13/2025 Patient is seen earlier patient is lying in bed currently on BiPAP support. Patient is well known for CO2 retention acute on chronic hypercapnia in the past patient also has history of intractable back pain on last admission general surgeon was consulted and was recommending surgery but patient refused and wanted a 2nd opinion patient was to follow-up with PCP to be referred to a neurosurgeon for 2nd opinion apparently that was not done. We will continue with pain management we will continue to follow pulmonary on BiPAP settings. 03/15/25 patient is lying in bed patient was on the phone having a conversation it appeared patient is able to complete full sentences at the time my evaluation with patient. 1400 reassess patient patient's episodes of hallucination patient was started on seroquel yesterday small dose 12.5 mg receive a morning dose most likely this medication is to be given at bedtime only are patient is very sensitive to this medication.. Discharged we will be placed on hold patient is high-risk for falls, hypercapnia, over self medicated. We will discontinue two nine scheduled Seroquel in no sedation the next 24 hours we will consider one-to-one if patient becomes agitated. REVIEW OF SYSTEMS CONSTITUTIONAL: Denies fevers, chills, or night sweats. No unintentional weight loss reported. NEUROLOGICAL: Denies headache, amaurosis fugax, motor weakness, sensory deficit, vertigo/spinning sensation, gait abnormalities, or tremors. ENT: No hearing loss, otalgia, otorrhea, rhinitis, rhinorrhea, hoarseness, or sore throat. CARDIOVASCULAR: Denies any exertional angina, dyspnea on exertion, orthopnea, paroxysmal nocturnal dyspnea, palpitations, life-threatening arrhythmias, claudication. PULMONARY: Denies any shortness of breath, cough, phlegm/sputum, hemoptysis, pleuritic chest pain. SLEEP: Denies morning headaches, daytime somnolence or napping. Denies difficulty falling asleep, staying asleep, waking from sleep. Denies knowledge of snoring. GASTROINTESTINAL: Denies any type of dysphagia to either liquids or solids. Denies nausea, vomiting, pyrosis, early satiety, abdominal pain, diarrhea, constipation, or changes in stool consistency or caliber. Denies coffee-ground emesis, hematemesis, hematochezia, or melanotic stools. GENITOURINARY: Denies frequency, urgency, nocturia, hematuria or incontinence (Storage/Irritative symptoms.) Low urinary stream, straining to void, urinary intermittency or hesitancy, splitting of the voiding stream, terminal dribbling. ENDOCRINOLOGIC: Denies polyuria, polydipsia, polyphagia or heat/cold intolerances. HEMATOLOGIC: Denies thrombophilia/previous clots, or coagulopathy/bleeding disorders. ONCOLOGIC: Denies personal history of malignancy. DERMATOLOGIC: Denies rashes or pruritus. PSYCHIATRIC: Denies any suicidal or homicidal ideation. Denies hallucinations. PHYSICAL EXAM GENERAL APPEARANCE: The patient is awake, alert, and oriented, in no acute cardiopulmonary distress. NEUROLOGICAL: Cranial nerves II-XII grossly intact. Motor is 5/5 in bilateral upper and lower extremities proximal to distal. No sensory deficits. HEENT: Face is symmetric. Pupils are equal and reactive. Extraocular movements are intact. NECK: Supple. No JVD. No thyromegaly. No submental, submandibular, pre- /postauricular, occipital or supraclavicular lymphadenopathy. CHEST: Normal chest expansion. No Telemetry. LUNGS: Absence of any rales, rhonchi or any wheezing. CARDIOVASCULAR: Regular. S1 and S2 normal. No appreciable rubs, murmurs or gallops. ABDOMEN: Soft, nontender, and nondistended. There is no rebound, voluntary guarding, or rigidity. : Deferred. No Michele. EXTREMITIES: Non-edematous and not cyanotic. No clubbing. Good capillary refill. SKIN: No skin breakdown. Vital Signs (last 8hr) Date Time Temp Pulse Resp B/P (MAP) Pulse Ox O2 Delivery O2 Flow Rate FiO2 03/15/25 04:08 97.5 100 18 130/81 94 Nasal Cannula LABS: Laboratory: Test 03/15/25 05:05 03/14/25 04:29 03/14/25 03:05 Range/Units Whole Blood Glucose 148 H 70-110 MG/DL White Blood Count 9.5 # 4.8-10.8 K/uL Red Blood Count 3.80 L 4.50-6.20 MIL/uL Hemoglobin 10.6 L 14.0-18.0 g/dL Hematocrit 33.6 L 42-54 % Mean Corpuscular Volume 88.4 79-99 fL Mean Corpuscular Hemoglobin 27.9 27.0-33.0 pg Mean Corpuscular Hemoglobin Concent 31.5 L 32.0-36.0 g/dL Red Cell Distribution Width 14.2 11.0-15.5 % Platelet Count 249 130-400 K/uL Mean Platelet Volume 9.1 7.5-10.5 fL Nucleated Red Blood Cells 0.2 H 0.0-0.19 % Sodium Level 138 136-145 mmol/L Potassium Level 4.2 3.5-5.1 mmol/L Chloride Level 98 L 101-111 mmol/L Carbon Dioxide Level 39 H 21-32 mmol/L Blood Urea Nitrogen 14 7-18 mg/dL Creatinine 0.5 0.5-1.3 mg/dL Glomerular Filtration Rate Calc 116 >90 mL/min Random Glucose 111 H 70-105 mg/dL Lactic Acid Level 0.8 0.8-2.5 mmol/L Total Calcium 8.7 8.5-10.1 mg/dL Phosphorus Level 2.1 L 2.5-4.9 mg/dL Magnesium Level 1.90 1.80-2.40 mg/dL Blood Gas Specimen Type Arterial Arterial Blood pH 7.392 7.350-7.450 Arterial Blood Partial Pressure CO2 61 *H 35-48 mmHg Arterial Blood Partial Pressure O2 93.9 83.0-108.0 mmHg Arterial Blood HCO3 36.2 H 21.0-28.0 mmol/L Arterial Blood Oxygen Saturation 96.9 94.0-98.0 % Arterial Blood Base Excess 8.8 H -2.0-3.0 mmol/L Blood Gas Temperature 37.0 35.5-37.0 CELSIUS Blood Gas Respiration Rate 20.0 min. Blood Gas Vent Mode AVAPS EPAP7 ROOM AIR FiO2 38.0 % Blood Gas Tidal Volume 600 ml Blood Gas Specimen Comment LR RN Current Medications Medications (Trade) Dose Ordered Sig/Nicolasa Route PRN Reason Start Time Stop Time Status Last Admin Dose Admin Acetaminophen (TYLenol 325MG TAB) 650 mg Q6H PRN PO TEMPERATURE GREATER THAN 101.5 03/10/25 20:30 04/09/25 20:29 Acetaminophen/ Codeine Phosphate (TYLenol-coDEINE TAB) 1 tab Q6H PRN PO MODERATE PAIN (4-6) 03/11/25 13:00 03/13/25 07:46 DC Acetaminophen/ Hydrocodone Bitart (NORco 10) 1 tab Q6H PRN PO MODERATE PAIN (4-6) 03/13/25 16:00 03/14/25 07:35 DC 03/13/25 21:26 1 TAB Albuterol (DUOneb) 1 UDVIAL [id number] IH 03/11/25 00:00 04/10/25 00:00 03/14/25 23:30 1 UDVIAL Baclofen (Baclofen) 20 mg BID PO 03/11/25 21:00 04/10/25 20:59 03/14/25 19:44 20 MG Benzonatate (Tessalon 100mg Caps) 100 mg BID PRN PO COUGH 03/12/25 15:30 04/11/25 15:29 Budesonide (Pulmicort 0.5 Mg/2ml) 0.5 mg BIDRESP IH 03/11/25 06:00 04/10/25 05:59 03/14/25 18:39 0.5 MG Bupropion HCl (WellBUTrin SR 150MG) 150 mg DAILY PO 03/13/25 09:00 04/12/25 08:59 03/14/25 07:42 150 MG Cefepime HCl (MAXipime 2 gm vial) 2 gm Q8H IVPB 03/12/25 15:30 03/22/25 15:29 03/15/25 00:29 2 GM Dexamethasone Sodium Phosphate (dexaMETHasone 4MG/ML 1ML VIAL) 6 mg Q12H IVP 03/12/25 15:30 04/11/25 15:29 03/15/25 02:38 6 MG Docusate Sodium (COLace 100MG CAP) 100 mg BID PRN PO CONSTIPATION 03/12/25 15:30 04/11/25 15:29 Doxycycline Hyclate (Doxycycline Hyclate) 100 mg BID PO 03/12/25 21:00 03/22/25 20:59 03/14/25 19:44 100 MG Duloxetine HCl (CymbALTA 30 mg CAP) 30 mg DAILY PO 03/11/25 09:00 04/10/25 08:59 03/14/25 07:43 30 MG Enoxaparin Sodium (Lovenox) 40 mg DAILY SQ 03/11/25 09:00 04/10/25 08:59 03/14/25 07:43 40 MG Famotidine (Pepcid 20mg Tab) 20 mg DAILY PO 03/11/25 09:00 04/10/25 08:59 03/14/25 07:42 20 MG Hydralazine HCl (APRESOLine 20MG INJ) 10 mg Q6H PRN IV For:SBP above 160;DBP above 90 03/10/25 20:30 04/09/25 20:29 Hydromorphone HCl (DiLAUDid 1MG INJ) 1 mg Q4H PRN IVP SEVERE PAIN (7-10) 03/13/25 16:00 03/18/25 15:59 03/14/25 19:45 1 MG Insulin Human Regular (humuLIN R 100 UNIT/ML 3ML) INSULIN SLIDING SCAL... ACHS SQ 03/10/25 21:00 04/09/25 20:59 Ketorolac Tromethamine (toRADol) 30 mg Q6H PRN IM MODERATE PAIN (4-6) 03/11/25 13:00 03/16/25 12:59 03/14/25 11:56 30 MG Lidocaine (Lidocaine Patch 4%) 1 each DAILY TP 03/12/25 09:00 04/11/25 08:59 03/14/25 07:43 1 EACH Montelukast Sodium (SinguLAIR) 10 mg DAILY PO 03/13/25 09:00 04/12/25 08:59 03/14/25 07:43 10 MG Morphine Sulfate (morPHINE 4MG SYG) 2 mg Q4H PRN IVP SEVERE PAIN (7-10) 03/10/25 20:30 03/11/25 11:16 DC 03/11/25 08:12 2 MG Morphine Sulfate (morPHINE 4MG SYG) 4 mg Q3H3 PRN IVP SEVERE PAIN (7-10) 03/11/25 11:30 03/13/25 15:36 DC 03/13/25 08:52 4 MG Ondansetron HCl (zoFRAN 4MG INJ) 4 mg Q6H PRN IV NAUSEA/VOMITING 03/10/25 20:30 04/09/25 20:29 Polyethylene Glycol (MIRalax 3350 17 GM POWD.PACK) 17 gm DAILY PO 03/12/25 15:30 04/11/25 15:29 03/14/25 07:43 17 GM Pregabalin (LYRica 25MG) 50 mg BID PO 03/10/25 21:00 04/09/25 20:59 03/14/25 19:44 50 MG Pregabalin ([id number]) 75 mg BID PO 03/10/25 21:00 03/10/25 20:31 DC Quetiapine Fumarate (SEROquel 25 mg TAB) 12.5 mg BID PO 03/14/25 17:00 04/08/25 23:59 03/14/25 19:45 12.5 MG Tizanidine HCl (Tizanidine HCl) 4 mg AM PO 03/13/25 09:00 04/12/25 08:59 03/14/25 07:46 4 MG DIAGNOSTICS / RADIOLOGY: [ ] ASSESSMENT: Acute on chronic respiratory failure with hypoxemia POA Home oxygen dependent POA History of hypercapnia POA [Chronic Intractable back pain, POA L2-S1 disc bulging, by MRI on 02/13/2025 T12, L1, L2 compression fracture by MRI on 02/13/2025 JORDI COPD Asthma Emphysema Hypertension Diabetes mellitius type2 Hyperlipidemia ] Agitation not POA Hallucination intervals episodes not POA PLAN: 59-year-old male Misael we will continue with antibiotics oxygen supplement to keep O2 sats above 92% BiPAP at bedtime. Given to patient having episodes of hallucinations we will stop saturated Seroquel scheduled p.m. dose patient is high-risk for falls over self medicated and hypercapnia if patient is discharged. We will keep him over night. Avoid sedations next 24 hours [Intractable back pain: Neurosurgeon on-call Dr. Manriquez has seen patient in the past refused surgery we will wait for his recommendations on this admission Lyrica 50 mg by mouth twice daily. As needed analgesia with morphine 2 mg IV every 4 hours. Diabetes mellitus type 2: Check hemoglobin A1c in a.m. Glucometer checks a.c. and HS 1800 ADA diet Humulin R sliding scale Chronic respiratory failure, JORDI, COPD, asthma, emphysema, hypertension, hyperl ipidemia: Patient is currently on BiPAP support Continue with-DuoNebs every 6 hours, Pulmicort twice daily. Hydralazine 10 mg IV every 4 hours for systolic blood pressure greater than 160 mmHg Continue to follow up with pulmonology team for further recommendation We will repeat labs tomorrow GI prophylaxis, famotidine DVT prophylaxis, Lovenox Case discussed with Dr. Comse, above plan was formulated ] ATTESTATION BY PHYSICIAN I have seen and examined the patient. I reviewed the documentation, medical decision making, and treatment plan as noted by the mid-level provider above. I agree with the findings and plan of care. Leslie Cosme MD, ELIZABETH NP Mar 15, 2025 09:42
--- NOTE | 2025-03-15 09:46 | PN ---
[facility] PROGRESS NOTE Date of Service: Mar 15, 2025 Time of Service: 09:42 SUBJECTIVE: [Patient was evaluated this morning in his room (409). He continues to require BiPAP support and is now unable to tolerate any time off the device. Nursing staff report that when BiPAP is removed, he becomes increasingly dyspneic and anxious. Overnight, his CO? level increased to 89, prompting pulmonology to round and adjust his BiPAP settings. Despite these adjustments, he remains dependent on continuous BiPAP support and is not tolerating any breaks from the device. 03/13/2025 Patient is seen earlier patient is lying in bed currently on BiPAP support. Patient is well known for CO2 retention acute on chronic hypercapnia in the past patient also has history of intractable back pain on last admission general surgeon was consulted and was recommending surgery but patient refused and wanted a 2nd opinion patient was to follow-up with PCP to be referred to a neurosurgeon for 2nd opinion apparently that was not done. We will continue with pain management we will continue to follow pulmonary on BiPAP settings. Late entry: 03/14/25 The patient lying in bed: on supplemental oxygen high flow, dyspneic lying in bed during my visit: unable to complete full sentences. The patient was ask again if he will proceed with back surgery: he continues to refused. I will get PT to get patient OOB to chair as tolerated. Denies chest pain. REVIEW OF SYSTEMS CONSTITUTIONAL: Denies fevers, chills, or night sweats. No unintentional weight loss reported. NEUROLOGICAL: Denies headache, amaurosis fugax, motor weakness, sensory deficit, vertigo/spinning sensation, gait abnormalities, or tremors. ENT: No hearing loss, otalgia, otorrhea, rhinitis, rhinorrhea, hoarseness, or sore throat. CARDIOVASCULAR: Denies any exertional angina, dyspnea on exertion, orthopnea, paroxysmal nocturnal dyspnea, palpitations, life-threatening arrhythmias, claudication. PULMONARY: Denies any shortness of breath, cough, phlegm/sputum, hemoptysis, pleuritic chest pain. SLEEP: Denies morning headaches, daytime somnolence or napping. Denies difficulty falling asleep, staying asleep, waking from sleep. Denies knowledge of snoring. GASTROINTESTINAL: Denies any type of dysphagia to either liquids or solids. Denies nausea, vomiting, pyrosis, early satiety, abdominal pain, diarrhea, c onstipation, or changes in stool consistency or caliber. Denies coffee-ground emesis, hematemesis, hematochezia, or melanotic stools. GENITOURINARY: Denies frequency, urgency, nocturia, hematuria or incontinence (Storage/Irritative symptoms.) Low urinary stream, straining to void, urinary intermittency or hesitancy, splitting of the voiding stream, terminal dribbling. ENDOCRINOLOGIC: Denies polyuria, polydipsia, polyphagia or heat/cold intolerances. HEMATOLOGIC: Denies thrombophilia/previous clots, or coagulopathy/bleeding disorders. ONCOLOGIC: Denies personal history of malignancy. DERMATOLOGIC: Denies rashes or pruritus. PSYCHIATRIC: Denies any suicidal or homicidal ideation. Denies hallucinations. PHYSICAL EXAM GENERAL APPEARANCE: The patient is awake, alert, and oriented, in no acute ca rdiopulmonary distress. NEUROLOGICAL: Cranial nerves II-XII grossly intact. Motor is 5/5 in bilateral upper and lower extremities proximal to distal. No sensory deficits. HEENT: Face is symmetric. Pupils are equal and reactive. Extraocular movements are intact. NECK: Supple. No JVD. No thyromegaly. No submental, submandibular, pre- /postauricular, occipital or supraclavicular lymphadenopathy. CHEST: Normal chest expansion. No Telemetry. LUNGS: Absence of any rales, rhonchi or any wheezing. CARDIOVASCULAR: Regular. S1 and S2 normal. No appreciable rubs, murmurs or gallops. ABDOMEN: Soft, nontender, and nondistended. There is no rebound, voluntary guarding, or rigidity. : Deferred. No Michele. EXTREMITIES: Non-edematous and not cyanotic. No clubbing. Good capillary refill. SKIN: No skin breakdown. Vital Signs (last 8hr) Date Time Temp Pulse Resp B/P (MAP) Pulse Ox O2 Delivery O2 Flow Rate FiO2 03/15/25 04:08 97.5 100 18 130/81 94 Nasal Cannula LABS: Laboratory: Test 03/15/25 05:05 03/14/25 04:29 03/14/25 03:05 Range/Units Whole Blood Glucose 148 H 70-110 MG/DL White Blood Count 9.5 # 4.8-10.8 K/uL Red Blood Count 3.80 L 4.50-6.20 MIL/uL Hemoglobin 10.6 L 14.0-18.0 g/dL Hematocrit 33.6 L 42-54 % Mean Corpuscular Volume 88.4 79-99 fL Mean Corpuscular Hemoglobin 27.9 27.0-33.0 pg Mean Corpuscular Hemoglobin Concent 31.5 L 32.0-36.0 g/dL Red Cell Distribution Width 14.2 11.0-15.5 % Platelet Count 249 130-400 K/uL Mean Platelet Volume 9.1 7.5-10.5 fL Nucleated Red Blood Cells 0.2 H 0.0-0.19 % Sodium Level 138 136-145 mmol/L Potassium Level 4.2 3.5-5.1 mmol/L Chloride Level 98 L 101-111 mmol/L Carbon Dioxide Level 39 H 21-32 mmol/L Blood Urea Nitrogen 14 7-18 mg/dL Creatinine 0.5 0.5-1.3 mg/dL Glomerular Filtration Rate Calc 116 >90 mL/min Random Glucose 111 H 70-105 mg/dL Lactic Acid Level 0.8 0.8-2.5 mmol/L Total Calcium 8.7 8.5-10.1 mg/dL Phosphorus Level 2.1 L 2.5-4.9 mg/dL Magnesium Level 1.90 1.80-2.40 mg/dL Blood Gas Specimen Type Arterial Arterial Blood pH 7.392 7.350-7.450 Arterial Blood Partial Pressure CO2 61 *H 35-48 mmHg Arterial Blood Partial Pressure O2 93.9 83.0-108.0 mmHg Arterial Blood HCO3 36.2 H 21.0-28.0 mmol/L Arterial Blood Oxygen Saturation 96.9 94.0-98.0 % Arterial Blood Base Excess 8.8 H -2.0-3.0 mmol/L Blood Gas Temperature 37.0 35.5-37.0 CELSIUS Blood Gas Respiration Rate 20.0 min. Blood Gas Vent Mode AVAPS EPAP7 ROOM AIR FiO2 38.0 % Blood Gas Tidal Volume 600 ml Blood Gas Specimen Comment LR RN Current Medications Medications (Trade) Dose Ordered Sig/Nicolasa Route PRN Reason Start Time Stop Time Status Last Admin Dose Admin Acetaminophen (TYLenol 325MG TAB) 650 mg Q6H PRN PO TEMPERATURE GREATER THAN 101.5 03/10/25 20:30 04/09/25 20:29 Acetaminophen/ Codeine Phosphate (TYLenol-coDEINE TAB) 1 tab Q6H PRN PO MODERATE PAIN (4-6) 03/11/25 13:00 03/13/25 07:46 DC Acetaminophen/ Hydrocodone Bitart (NORco 10) 1 tab Q6H PRN PO MODERATE PAIN (4-6) 03/13/25 16:00 03/14/25 07:35 DC 03/13/25 21:26 1 TAB Albuterol (DUOneb) 1 UDVIAL [id number] IH 03/11/25 00:00 04/10/25 00:00 03/14/25 23:30 1 UDVIAL Baclofen (Baclofen) 20 mg BID PO 03/11/25 21:00 04/10/25 20:59 03/14/25 19:44 20 MG Benzonatate (Tessalon 100mg Caps) 100 mg BID PRN PO COUGH 03/12/25 15:30 04/11/25 15:29 Budesonide (Pulmicort 0.5 Mg/2ml) 0.5 mg BIDRESP IH 03/11/25 06:00 04/10/25 05:59 03/14/25 18:39 0.5 MG Bupropion HCl (WellBUTrin SR 150MG) 150 mg DAILY PO 03/13/25 09:00 04/12/25 08:59 03/14/25 07:42 150 MG Cefepime HCl (MAXipime 2 gm vial) 2 gm Q8H IVPB 03/12/25 15:30 03/22/25 15:29 03/15/25 00:29 2 GM Dexamethasone Sodium Phosphate (dexaMETHasone 4MG/ML 1ML VIAL) 6 mg Q12H IVP 03/12/25 15:30 04/11/25 15:29 03/15/25 02:38 6 MG Docusate Sodium (COLace 100MG CAP) 100 mg BID PRN PO CONSTIPATION 03/12/25 15:30 04/11/25 15:29 Doxycycline Hyclate (Doxycycline Hyclate) 100 mg BID PO 03/12/25 21:00 03/22/25 20:59 03/14/25 19:44 100 MG Duloxetine HCl (CymbALTA 30 mg CAP) 30 mg DAILY PO 03/11/25 09:00 04/10/25 08:59 03/14/25 07:43 30 MG Enoxaparin Sodium (Lovenox) 40 mg DAILY SQ 03/11/25 09:00 04/10/25 08:59 03/14/25 07:43 40 MG Famotidine (Pepcid 20mg Tab) 20 mg DAILY PO 03/11/25 09:00 04/10/25 08:59 03/14/25 07:42 20 MG Hydralazine HCl (APRESOLine 20MG INJ) 10 mg Q6H PRN IV For:SBP above 160;DBP above 90 03/10/25 20:30 04/09/25 20:29 Hydromorphone HCl (DiLAUDid 1MG INJ) 1 mg Q4H PRN IVP SEVERE PAIN (7-10) 03/13/25 16:00 03/18/25 15:59 03/14/25 19:45 1 MG Insulin Human Regular (humuLIN R 100 UNIT/ML 3ML) INSULIN SLIDING SCAL... ACHS SQ 03/10/25 21:00 04/09/25 20:59 Ketorolac Tromethamine (toRADol) 30 mg Q6H PRN IM MODERATE PAIN (4-6) 03/11/25 13:00 03/16/25 12:59 03/14/25 11:56 30 MG Lidocaine (Lidocaine Patch 4%) 1 each DAILY TP 03/12/25 09:00 04/11/25 08:59 03/14/25 07:43 1 EACH Montelukast Sodium (SinguLAIR) 10 mg DAILY PO 03/13/25 09:00 04/12/25 08:59 03/14/25 07:43 10 MG Morphine Sulfate (morPHINE 4MG SYG) 2 mg Q4H PRN IVP SEVERE PAIN (7-10) 03/10/25 20:30 03/11/25 11:16 DC 03/11/25 08:12 2 MG Morphine Sulfate (morPHINE 4MG SYG) 4 mg Q3H3 PRN IVP SEVERE PAIN (7-10) 03/11/25 11:30 03/13/25 15:36 DC 03/13/25 08:52 4 MG Ondansetron HCl (zoFRAN 4MG INJ) 4 mg Q6H PRN IV NAUSEA/VOMITING 03/10/25 20:30 8/31/25 20:29 Polyethylene Glycol (MIRalax 3350 17 GM POWD.PACK) 17 gm DAILY PO 03/12/25 15:30 04/11/25 15:29 03/14/25 07:43 17 GM Pregabalin (LYRica 25MG) 50 mg BID PO 03/10/25 21:00 04/09/25 20:59 03/14/25 19:44 50 MG Pregabalin ([id number]) 75 mg BID PO 03/10/25 21:00 03/10/25 20:31 DC Quetiapine Fumarate (SEROquel 25 mg TAB) 12.5 mg BID PO 03/14/25 17:00 04/08/25 23:59 03/14/25 19:45 12.5 MG Tizanidine HCl (Tizanidine HCl) 4 mg AM PO 03/13/25 09:00 04/12/25 08:59 03/14/25 07:46 4 MG DIAGNOSTICS / RADIOLOGY: [ ] ASSESSMENT: [Intractable back pain, POA L2-S1 disc bulging, by MRI on 02/13/2025 T12, L1, L2 compression fracture by MRI on 02/13/2025 Chronic respiratory in failure JORDI COPD Asthma Emphysema Hypertension Diabetes mellitius type2 Hyperlipidemia ] PLAN: [Intractable back pain: Neurosurgeon on-call Dr. Manriquez has seen patient in the past refused surgery we will wait for his recommendations possible steroid injection Lyrica 50 mg by mouth twice daily. As needed analgesia with morphine 2 mg IV every 4 hours. Patient received Norflex, triamcinolone, tramadol, lidocaine in the emergency department. Diabetes mellitus type 2: Check hemoglobin A1c in a.m. Glucometer checks a.c. and HS 1800 ADA diet Humulin R sliding scale Chronic respiratory failure, JORDI, COPD, asthma, emphysema, hypertension, hyperlipidemia: Patient is currently on BiPAP support Continue with-DuoNebs every 6 hours, Pulmicort twice daily. Hydralazine 10 mg IV every 4 hours for systolic blood pressure greater than 160 mmHg Continue to follow up with pulmonology team for further recommendation We will repeat labs tomorrow GI prophylaxis, famotidine DVT prophylaxis, Lovenox Case discussed with Dr. Cosme, above plan was formulated ] ATTESTATION BY PHYSICIAN I have seen and examined the patient. I reviewed the documentation, medical d ecision making, and treatment plan as noted by the mid-level provider above. I agree with the findings and plan of care. Leslie Cosme MD, ELIZABETH NP Mar 15, 2025 09:46
--- NOTE | 2025-03-15 23:30 | PN ---
[facility] PROGRESS NOTE Date Patient Seen: Mar 15, 2025 Time of Visit: 23:30 Supervising Physician: Dr. Brett Cervantes Primary Care Physician: [ ] Outpatient Specialists: [ ] Inpatient Consults: [ ] PROBLEM LIST: Acute on chronic hypercapnia, hypoxemic respiratory failure Intractable back pain, POA -L2-S1 disc bulging, by MRI on 02/13/2025 -T12, L1, L2 compression fracture by MRI on 02/13/2025 Diabetes mellitus type 2, hyperglycemia, POA Chronic: COPD JORDI Asthma Emphysema advancing for of COPD, not in acute exacerbation Hypertension Hyperlipidemia INTERVAL HISTORY: 03/12 Patient is seen and examined at the bedside, who continues with intractable pain denies fever, chills, nausea or vomiting, noted with CO2 retention on ABG;s Bipap settings has been adjusted to AVAPS TV600, R20 PIP 12 O2% 38% plan is to continue with pain control management, add laxatives and repeat chest x ray and labs. 03/13/2025 Patient is awake, alert, well oriented, still with significant pain despite the use of morphine, baclofen and Tylenol #3 plan is to discontinue Morphine and start him on Dilaudid for severe pain and Sobieski for moderate pain, both prn only otherwise continues with hypercapnia with PCO2 of 70's, he will continue with respiratory support AVAPS, we will continue monitoring closely. 03/14/2025-The patient assessed and seen resting in bed head of the bed elevated, patient is awake alert and oriented. There are no family members present during my assessment, accompanied by patient's bedside nurse. Patient has a retractable back pain, severe. This is limiting and debilitating for the patient. Clinically being worked up to see if Neurosurgery can do a spinal injection for pain relief management. Continue with respiratory support AVAPS checking ABG with a.m. labs. Patient has become more anxious and agitated, started patient on Seroquel initial dose 12.5 mg p.o. b.i.d., we will titrate medication if needed to provide patient calming environment. REVIEW OF SYSTEMS: 12 point ROS reviewed with patient. Pertinent positives mentioned above. Otherwise negative. PHYSICAL EXAM: GENERAL: alert, weak, awake oriented x 3 HEENT: EOMI, Sclera non icteric, moist mucosa NECK: Supple, no JVD, trachea midline LUNGS: Clear breath sounds bilaterally. No wheezes HEART: Regular rate and rhythm. Normal S1 and S2, without murmurs ABD: Abdomen soft, nontender. Bowel sounds present EXT: No clubbing cyanosis or edema NEURO: Alert and oriented to person, follows commands Vital Signs (last 8hr) Date Time Temp Pulse Resp B/P (MAP) Pulse Ox O2 Delivery O2 Flow Rate FiO2 03/15/25 23:15 109 22 38 03/15/25 23:13 92 20 03/15/25 20:00 97.3 87 19 137/77 93 Nasal Cannula 5.0 36 03/15/25 18:52 80 22 N/Cannula Low lpm 5.0 40 03/15/25 18:52 88 20 03/15/25 16:00 98.1 79 17 140/82 99 Nasal Cannula 5.0 LABS: Hematology Labs: Test 03/14/25 04:29 Range/Units White Blood Count 9.5 # 4.8-10.8 K/uL Red Blood Count 3.80 L 4.50-6.20 MIL/uL Hemoglobin 10.6 L 14.0-18.0 g/dL Hematocrit 33.6 L 42-54 % Mean Corpuscular Volume 88.4 79-99 fL Mean Corpuscular Hemoglobin 27.9 27.0-33.0 pg Mean Corpuscular Hemoglobin Concent 31.5 L 32.0-36.0 g/dL Red Cell Distribution Width 14.2 11.0-15.5 % Platelet Count 249 130-400 K/uL Mean Platelet Volume 9.1 7.5-10.5 fL Nucleated Red Blood Cells 0.2 H 0.0-0.19 % Chemistry Labs: Test 03/15/25 19:05 03/14/25 04:29 Range/Units Whole Blood Glucose 111 H 70-110 MG/DL Sodium Level 138 136-145 mmol/L Potassium Level 4.2 3.5-5.1 mmol/L Chloride Level 98 L 101-111 mmol/L Carbon Dioxide Level 39 H 21-32 mmol/L Blood Urea Nitrogen 14 7-18 mg/dL Creatinine 0.5 0.5-1.3 mg/dL Glomerular Filtration Rate Calc 116 >90 mL/min Random Glucose 111 H 70-105 mg/dL Lactic Acid Level 0.8 0.8-2.5 mmol/L Total Calcium 8.7 8.5-10.1 mg/dL Phosphorus Level 2.1 L 2.5-4.9 mg/dL Magnesium Level 1.90 1.80-2.40 mg/dL DIAGNOSTICS / RADIOLOGY RESULTS: [ ] PLAN : Stool softeners stool laxative scheduled for the patient Enema x1 if necessary Utilizing AVAPS settings ABG with a.m. labs Continue with current medical management especially pain medicine Continue DVT and GI prophylaxis Aspiration precautions Patient out of bed for all meals in a high back chair Fall precautions Seroquel 12.5 mg p.o. b.i.d. NEURO: Minimize central acting medications as possible. Maintain fall precautions, adequate lighting during the day PULMONARY: Supplemental 02 as needed. Maintain aspiration precautions at all times CARDIOVASCULAR: Follow hemodynamics. Vital signs per facility protocol GI & NUTRITION: Continue with nutritional support. Continue stool softeners and laxatives as needed. KIDNEYS & ELECTROLYTES: Strict monitoring of intake, output and overall fluid balance. Avoid nephrotoxic medications to the extent possible. Medications to be dosed according to renal function. Monitor electrolytes and replace as needed ENDOCRINE: Maintain blood glucose between 100-180 at all times. Hypoglycemia protocol in place INFECTIOUS DISEASE: Trend temperature, WBC and procalcitonin level Follow cultures, deescalate antibiotics as soon as possible. Panculture if new onset fever ONCOLOGY/HEMATOLOGY/COAGULATION: Monitor for s/s of bleeding Monitor hemoglobin, coagulation studies as needed SKIN: Pressure ulcer prevention per facility protocol Specialty mattress ORTHO/REHAB: Continue PT/OT Prophylaxis: Continue GI and DVT prophylaxis Code Status: Full Resuscitation Disposition: TBD CRITICAL CARE TIME 50 minutes excluding any procedures performed at bedside, this is based upon the patient's criteria involving pulmonary, cardiovascular, and muscle skeletal systems. The case was discussed and reviewed with my supervising physician,Dr. Quinn Baker, in an intervention was developed and implemented. We will be reassess tomorrow when rounding. AGATA RUIZ NP Mar 15, 2025 23:30
[2025-03-16] VITALS: BP 136/80; PULSE 82; RESP 19; TEMP 97.6
[2025-03-16 02:13] VITALS: PULSE 82; RESP 21; O2SAT 98
[2025-03-16 04:00] VITALS: BP 151/76; PULSE 86; RESP 19; TEMP 98.7
[2025-03-16 05:35] LABS: IMMATURE GRANULOCYTE ABSOLUTE 0.20 K/uL (0-1); NUCLEATED RED BLOOD CELLS 0.2 % (0.0-0.19); PLATELET COUNT (AUTO) 305 K/uL (130-400); RED BLOOD CELL COUNT(AUTO) 4.17 MIL/uL (4.50-6.20); RED CELL DISTRIBUTION WIDTH 14.5 % (11.0-15.5); WHITE BLOOD COUNT (AUTO) 10.9 K/uL (4.8-10.8)
[2025-03-16 06:02] LABS: ASPARTATE AMINOTRANSFERASE 14.0 U/L (10-37); CREATININE 0.5 mg/dL (0.5-1.3); GLOMERULAR FILTR. RATE CALC 116.0 mL/min (>90); GLUCOSE,RANDOM 88.0 mg/dL (70-105); SODIUM SERUM 138.0 mmol/L (136-145); TOTAL PROTEIN, SERUM 7.0 g/dL (6.0-8.3); UREA NITROGEN, BLOOD 16.0 mg/dL (7-18)
[2025-03-16 06:22] VITALS: PULSE 99; RESP 20
[2025-03-16 06:24] VITALS: PULSE 99; RESP 20; O2SAT 98
[2025-03-16 08:00] VITALS: BP 150/76; PULSE 93; RESP 20; TEMP 98.3; O2SAT 97
[2025-03-16] MEDS ORDERED: METH4TAB3 PO (09:35)
[2025-03-16] MEDS ORDERED: DOXY100C5 PO (09:36)
[2025-03-16] MEDS ORDERED: CEFD300C3 PO (09:37)
--- NOTE | 2025-03-16 09:39 | DS ---
Discharge Summary Hospital Course Summary: [Patient was evaluated this morning in his room (409). He continues to require BiPAP support and is now unable to tolerate any time off the device. Nursing staff report that when BiPAP is removed, he becomes increasingly dyspneic and anxious. Overnight, his CO? level increased to 89, prompting pulmonology to round and adjust his BiPAP settings. Despite these adjustments, he remains dependent on continuous BiPAP support and is not tolerating any breaks from the device. 03/13/2025 Patient is seen earlier patient is lying in bed currently on BiPAP support. Patient is well known for CO2 retention acute on chronic hypercapnia in the past patient also has history of intractable back pain on last admission general surgeon was consulted and was recommending surgery but patient refused and wanted a 2nd opinion patient was to follow-up with PCP to be referred to a neurosurgeon for 2nd opinion apparently that was not done. We will continue wi th pain management we will continue to follow pulmonary on BiPAP settings. Late entry: 03/14/25 The patient lying in bed: on supplemental oxygen high flow, dyspneic lying in bed during my visit: unable to complete full sentences. The patient was ask again if he will proceed with back surgery: he continues to refused. I will get PT to get patient OOB to chair as tolerated. Denies chest pain. 03/15/25 patient is lying in bed patient was on the phone having a conversation it appeared patient is able to complete full sentences at the time my evaluation with patient. 1400 reassess patient patient's episodes of hallucination patient was started on seroquel yesterday small dose 12.5 mg receive a morning dose most likely this medication is to be given at bedtime only are patient is very sensitive to this medication.. Discharged we will be placed on hold patient is high-risk for fal ls, hypercapnia, over self medicated. We will discontinue two nine scheduled Seroquel in no sedation the next 24 hours we will consider one-to-one if patient becomes agitated. 03/16/25 patient is fully awake alert oriented x3. patient is clinically stable for discharge. Advised patient to follow-up with laborer dairy farm's continue with oxygen supplemental at home and use of CPAP. Patient to follow-up PCP for pain management and referral to neurosurgeon Dr Elvin sena at bedside discussed the plan of care, patient will be discharged on Medrol Dosepak and oral antibiotics. Patient needs refills on Lyrica advised to go to his PCP follow-up 2-3 days continue with lidocaine patch. Procedure(s): REASON: hx of spinal fx ORDERING PHYSICIAN: JUANA DINERO MD PROCEDURE: L SPN WO - MR SPINAL CANAL, LUMBAR WO CON EXAM: MR Lumbar Spine Without Intravenous Contrast. CLINICAL HISTORY: Pain. TECHNIQUE: Magnetic resonance images of the lumbar spine in multiple planes. CONTRAST: None. COMPARISON: Prior lumbar spine radiograph dated 10 March 2025 and MRI lumbar spine dated 14 February 2025. FINDINGS: For this examination, spinal levels were labeled assuming five [id number], lumbar-type vertebrae, with the inferior labeled L5. No acute fracture. Normal lordotic curvature. Acute axial compression fracture of the L1 vertebra with diffuse bone marrow edema. Chronic anterior wedge compression fractures of the T11, T12, and L2 vertebrae. Multilevel disc desiccation and mild disc bulges at L2-L3, L3-L4, L4-L5 levels, and multilevel degenerative facet arthropathy. Bilateral pars defect at the L5-S1 level with grade 1 anterolisthesis of L5 over S1. Minimal retrolisthesis of L4 over L5. Conus medullaris terminates at the T12-L1 level. No abnormal epidural masses. The surrounding soft tissues are unremarkable. Individual spinal levels are described as follows: T12-L1: No disc bulge or herniation. No neural foraminal, lateral recess, or spinal canal stenosis. L1-L2: No disc bulge or herniation. No neural foraminal, lateral recess, or spinal canal stenosis. L2-L3: Mild disc desiccation with asymmetric 3.5 mm right paracentral disc bulge. Mild narrowing of the right lateral recess. Abutment of the right traversing L3 nerve root. No significant neural foraminal narrowing or spinal canal stenosis. L3-L4: Mild disc desiccation with minimal 2.5 mm disc bulge. No neural foraminal, lateral recess, or spinal canal stenosis. Mild bilateral facet arthropathy and ligamentum flavum hypertrophy. L4-L5: Mild disc desiccation. Minimal retrolisthesis of L4 over L5 (2 mm). No significant lateral recess or neural foraminal narrowing or spinal canal stenosis. L5-S1: Bilateral pars defect at the L5-S1 level with grade 1 anterolisthesis of L5 over S1. Broad-based circumferential 4 mm disc bulge with mild bilateral facet arthropathy. Moderate to severe narrowing of the bilateral neural foramina and abutment of the bilateral exiting L5 nerve root. No significant lateral recess or spinal canal stenosis. IMPRESSION: Acute axial compression fracture of the L1 vertebra with diffuse bone marrow edema. Chronic anterior wedge compression fractures of the T11, T12, and L2 vertebrae. Bilateral pars defect at the L5-S1 level with grade 1 anterolisthesis of L5 over S1. Minimal retrolisthesis of L4 over L5. Multilevel disc desiccation and mild disc bulges at L2-L3, L3-L4, L4-L5 levels, and multilevel degenerative facet arthropathy and moderate degenerative changes in the lumbar spine, most prominent at L5-S1 level, as described. Compared to the prior studies, there is no significant interval change. REASON: ABD DISTENSION ORDERING PHYSICIAN: HIMA CHAN MD PROCEDURE: ABD PEL WO - CT ABDOMEN/PELVIS W/O CONTRAST EXAM: CT Abdomen and Pelvis Without IV contrast CLINICAL HISTORY: Abdominal distension. TECHNIQUE: Axial computed tomography images of the abdomen and pelvis without intravenous contrast. CONTRAST: No IV contrast. COMPARISON: None provided. FINDINGS: LUNG BASES: Fibroatelectasis in the right middle lobe, lingular segments of the left upper lobe, and bilateral lower lobes. No pleural effusions are seen. Cardiomegaly. Aortic and mitral valve calcifications. LIVER: Hepatomegaly; the craniocaudal length of the right lobe of the liver measuring up to 18.4 cm. Mild hepatic steatosis. GALLBLADDER AND BILE DUCTS: There is subtle hyperdense attenuation in the gallbladder lumen, which may represent sludge. No biliary ductal dilatation is evident. PANCREAS: Unremarkable. SPLEEN: Multiple small calcified granulomas in the spleen. Focal capsular calcifications in the inferior aspect of the spleen. ADRENAL GLANDS: Unremarkable. KIDNEYS, URETERS, AND BLADDER: The kidneys appear within normal limits. There is no hydronephrosis or hydroureter. No urinary calculi are seen. STOMACH AND BOWEL: Mildly prominent and redundant cecum and ascending colon, the maximum diameter measuring up to 6 cm. Abundant fecal matter in the cecum and ascending colon. Unremarkable appearance of the stomach and the rest of the bowel. No evidence of bowel obstruction. No evidence suggesting enteritis or colitis. APPENDIX: No evidence of acute appendicitis on CT examination. PERITONEUM: No free fluid. No free air. LYMPH NODES: No lymphadenopathy is evident. REPRODUCTIVE: Unremarkable as visualized. VASCULATURE: No evidence of abdominal aortic aneurysm. BONES: Moderate multilevel degenerative changes in the spine. Bilateral L5 spondylolysis with no significant listhesis. The bones are osteopenic. There is a reduction in the heights of the T6 to T12 vertebral bodies. An old superior endplate osteoporotic compression fractures of the L1 and L2 vertebral bodies, with approximately 20% reduction in the vertebral body heights. There are old insufficiency fractures in both sacral ala. No retropulsion. No aggressive appearing osseous lesion. No acute osseous pathology evident. IMPRESSION: Subtle hypperdense attenuation in the gallbladder lumen, may represent sludge. Recommend ultrasound correlation. Mildly prominent and redundant cecum and ascending colon with abundant fecal matter. Old insufficiency fractures of both sacral ala. Recommend MRI correlation. Old osteoporotic compression fractures of the thoracic and lumbar vertebrae. REASON: COPD ORDERING PHYSICIAN: DELONTE THOMAS MD PROCEDURE: CXR1VW - CHEST 1VW EXAM: CR Chest, 1 View. CLINICAL HISTORY: COPD COMPARISON: None provided. FINDINGS: LUNGS: No active infiltrate PLEURAL SPACES: No pleural effusion or pneumothorax. MEDIASTINUM: Prominent cardiac silhouette. BONES: No aggressive appearing osseous lesion seen. IMPRESSION: 1. Prominent cardiac silhouette. 2. No active infiltrate Assessment/Plan: DISCHARGED DX'S: Acute on chronic respiratory failure with hypoxemia POA Home oxygen dependent POA History of hypercapnia POA [Chronic Intractable back pain, POA L2-S1 disc bulging, by MRI on 02/13/2025 T12, L1, L2 compression fracture by MRI on 02/13/2025 JORDI COPD Asthma Emphysema Hypertension Diabetes mellitius type2 Hyperlipidemia ] Agitation not POA Hallucination intervals episodes not POA Bacteremia Gram-positive POA discharged on oral antibiotics Levaquin 750 mg p.o. daily for 10 days PLAN: ADMISSION DATE: 03/10/25 DISCHARGE DATE: 03/11/25 DISPOSITION: Home CONDITION: Stable MOLDER PIPE COVERING(S): Needle Board Repairer's neurosurgeon FOLLOW UP APPOINTMENT(S): PCP 2-3 days, laborer dairy farm's one-week PROCEDURES: None IMAGING (S) report attached to summary : Lumbar spine MRI, abdomen pelvis CT, lumbar spine x-ray MICROBIOLOGY: report attached to summary; ACTIVITY: Ad germaine HOME MEDICATIONS remain the same we will need to follow-up PCP for refills of Lyrica CHANGES ON HOME MEDICATIONS none NEW MEDICATIONS Levaquin 750 mg p.o. daily in Medrol Dosepak Continue with home oxygen supplemental3 L TEACHING: Fall precautions Emergency instructions: The patient was instructed to present to the nearest Emergency Department or call 911 should their symptoms return or worsen. Discharge Instructions: RUN DATE: 03/15/25 [facility] RUN TIME: [phone] [address], [place] [address] Department of Laboratories CLIA # [id number] Convenience Store Clerk: Deisy Hampton DO Specimen Report PATIENT: CHRISTINE CURTIS ACCT: [id number] LOC: [facility] U: [id number] AGE/SX: 59/M ROOM: [facility] RE03/10/[address]: LIS ABRAHAM MD : 1965 BED: 1 DIS: STATUS: ADM IN TLOC: SPEC: [id number] J LUIS: 03/12/25 STATUS: COMP REQ: [id number] RECD: 03/13/[address]: DELONTE THOMAS MD SOURCE: BLOOD ENTR: 03/13/[address] [facility] [address]: JUANA DINERO MD [facility]: BLOOD LIS ABRAHAM MD, JAMIL M MD SELF,REFERRAL ORDERED: AERO ID & SENS Procedure Result Abril Date-Time AEROBIC ID & SENSITIVITIES Final 03/15/25-731 [facility] DESCRIPTION: DAY 1: GRAM POSITIVE COCCI IN CLUSTERS STAPHYLOCOCCUS AUREUS SENSITIVITY TO FOLLOW PEDIATRIC BOTTLE STAPHYLOCOCCUS AUREUS S. AUREUS M.I.C. RX --------- ---- ERYTHROMYCIN >4 R GENTAMICIN <=4 S LEVOFLOXACIN <=1 S VANCOMYCIN 1 S OXACILLIN DORA <=0.25 S RIFAMPIN <=1 S PENICILLIN 8 Edward TRIMETHOPRIM/SUFLAMETHOXAZOLE <=0.5/9.5 S @ [facility] Test Performed at: [facility] [address], [place], [place] Medical Hand Drawer In: Timothy Olivas D.O. Home Medications: Active Scripts Cefdinir (Cefdinir) 300 Mg Capsule, 1 CAP PO BID for 5 Days, #10 CAP 0 Refills Prov:NNEKA CLARK NP 03/16/25 Doxycycline Hyclate (Doxycycline Hyclate) 100 Mg Capsule, 1 CAP PO BID for 5 Days, #10 CAP 0 Refills Prov:NNEKA CLARK NP 03/16/25 Methylprednisolone (Medrol) 4 Mg Tab.ds.pk, 1 TAB PO AD for 6 Days, #21 TAB 0 Refills 6 on day 1 then reduce by one tablet daily until gone Prov:NNEKA CLARK NP 03/16/25 Lidocaine (Lidocaine Pain Relief) 4 % Adh..patch, 1 EACH TP DAILY for 10 Days, # 10 ADH.PATCH Prov:NNEKA CLARK NP 02/16/25 Reported Medications [Aspirin 325] No Conflict Check, 325 MG PO AM 03/10/25 Omeprazole (Omeprazole) 40 Mg Capsule.dr, 1 CAP PO DAILY for 30 Days, #30 CAP 0 Refills 03/10/25 Tizanidine HCl (Tizanidine HCl) 4 Mg Capsule, 4 MG PO AM, CAP 03/10/25 Benzonatate (Benzonatate) 200 Mg Capsule, 1 CAP PO BID PRN for cough for 7 Days, #21 CAP 0 Refills 02/09/25 Bupropion HCl (Bupropion Xl) 150 Mg Tab.er.24h, 1 TAB PO DAILY for 30 Days, #30 TAB 0 Refills 02/09/25 Losartan Potassium (Losartan Potassium) 25 Mg Tablet, 1 TAB PO DAILY for 30 Days, #30 TAB 0 Refills 02/09/25 Atorvastatin Calcium (LIPITOR) 10 Mg Tab, 1 TAB PO DAILY for 30 Days, #30 TAB 0 Refills 10/16/24 Montelukast Sodium (Montelukast Sodium) 10 Mg Tablet, 1 TAB PO DAILY for 30 Days, #30 TAB 0 Refills 10/16/24 Aspirin (Aspirin EC) 81 Mg Tablet., 1 TAB PO DAILY 12/25/23 Discontinued Reported Medications Fluticasone/Umeclidin/Vilanter (Trelegy Ellipta 100-62.5-25) 100-62.5 Blst.w.dev, 1 PUFF IH DAILY 03/10/25 Omeprazole (Omeprazole) 40 Mg Capsule., 1 CAP PO DAILY for 30 Days, #30 CAP 0 Refills 10/16/24 Baclofen (Baclofen) 20 Mg Tablet, 1 TAB PO BID for 30 Days, #90 TAB 0 Refills 10/16/24 Lansoprazole (Lansoprazole) 30 Mg Capsule., 1 CAP PO DAILY for 30 Days, #30 CAP 0 Refills 10/16/24 Discontinued Scripts Prednisone (Prednisone) 20 Mg Tablet, 40 MG PO DAILY for 5 Days, #5 TAB Prov:NNEKA CLARK NP 02/16/25 New Medications: Cefdinir (Cefdinir) 300 Mg Capsule 1 CAP PO BID for 5 Days, #10 CAP 0 Refills Doxycycline Hyclate (Doxycycline Hyclate) 100 Mg Capsule 1 CAP PO BID for 5 Days, #10 CAP 0 Refills Methylprednisolone (Medrol) 4 Mg Tab.ds.pk 1 TAB PO AD for 6 Days, #21 TAB 0 Refills 6 on day 1 then reduce by one tablet daily until gone Continued Medications: Aspirin (Aspirin EC) 81 Mg Tablet.dr 1 TAB PO DAILY [Aspirin 325] () 325 MG PO AM Atorvastatin Calcium (Lipitor) 10 Mg Tab 1 TAB PO DAILY for 30 Days, #30 TAB 0 Refills Benzonatate (Benzonatate) 200 Mg Capsule 1 CAP PO BID PRN for cough for 7 Days, #21 CAP 0 Refills Bupropion HCl (Bupropion Xl) 150 Mg Tab.er.24h 1 TAB PO DAILY for 30 Days, #30 TAB 0 Refills Lidocaine (Lidocaine Pain Relief) 4 % Adh..patch 1 EACH TP DAILY for 10 Days, #10 ADH.PATCH Losartan Potassium (Losartan Potassium) 25 Mg Tablet 1 TAB PO DAILY for 30 Days, #30 TAB 0 Refills Montelukast Sodium (Montelukast Sodium) 10 Mg Tablet 1 TAB PO DAILY for 30 Days, #30 TAB 0 Refills Omeprazole (Omeprazole) 40 Mg Capsule.dr 1 CAP PO DAILY for 30 Days, #30 CAP 0 Refills Tizanidine HCl (Tizanidine HCl) 4 Mg Capsule 4 MG PO AM, CAP Discontinued Medications: Fluticasone/Umeclidin/Vilanter (Trelegy Ellipta 100-62.5-25) 100-62.5 Blst.w.dev 1 PUFF IH DAILY Time spent arranging discharge: 31-60 minutes ATTESTATION BY PHYSICIAN I have seen and examined the patient. I reviewed the documentation, medical decision making, and treatment plan as noted by the mid-level provider above. I agree with the findings and plan of care. Leslie Cosme MD, ELIZABETH NP Mar 16, 2025 09:39
--- NOTE | 2025-03-16 10:15 | NUR ---
PT BHAVIN COMPLETED. PATIENT IS IMPULSIVE, REQUIRING CONSTANT VERBAL DIRECTION TO TASK. PATIENT CAN BE CONFUSED AT TIMES MAKING HIS ACTIVITY UNSAFE. Addendum: 03/16/25 at 1206 by KAYLEE SHOEMAKER PT Amended: Links added.
--- NOTE | 2025-03-16 10:50 | NUR ---
DISCHARGE PT sitting in bed w/ eyes open A&Ox3 able to make needs known, Son at bedside. Discharge instructions given to PT and son, both verbally acknowledged understanding. IV removed intact w/o complications. PT escorted to POV via WC by DUST COLLECTOR OPERATOR w/o complications.
[2025-03-16] MEDS ORDERED: LEVO750T90 PO (11:02)
--- NOTE | 2025-03-16 14:15 | HMCIMG ---
EXAM: LUMBAR SPINE 2-3VWS REASON: back pain. COMPARISON: None. TECHNIQUE: 4 views of the lumbar spine were obtained. FINDINGS: There is normal appearance of the lumbar vertebral bodies. Disc interspace heights are preserved. Alignment is normal. There are grade 1 compression fracture of T11, and L1. There is severe osteopenia. Soft tissues appear unremarkable. IMPRESSION: There is grade 1 compression fracture of T11, T12 and L1 which is amenable for vertebral body augmentation. This can be performed by me in interventional suite. Severe osteopenia
== END 2025-03-16 10:50 | disposition home or self-care (01) | DRG 871 ==
LOC: EDH 09:58 → EDHIP 20:25 → 4BH 22:01
PROVIDERS: ADMIT Internal Medicine; ATTEND Internal Medicine
PROC: 5A09357 Assistance with Respiratory Ventilation, Less than 24 Consecutive Hours, Continuous Positive Airway Pressure (ICD-10-PCS; principal; 2025-03-11)
PROC: 5A09357 Assistance with Respiratory Ventilation, Less than 24 Consecutive Hours, Continuous Positive Airway Pressure (ICD-10-PCS; 2025-03-12)
PROC: 5A09357 Assistance with Respiratory Ventilation, Less than 24 Consecutive Hours, Continuous Positive Airway Pressure (ICD-10-PCS; 2025-03-13)
PROC: 5A09357 Assistance with Respiratory Ventilation, Less than 24 Consecutive Hours, Continuous Positive Airway Pressure (ICD-10-PCS; 2025-03-14)
DX: A41.9 Sepsis, unspecified organism (principal); J96.21 Acute and chronic respiratory failure with hypoxia; J96.22 Acute and chronic respiratory failure with hypercapnia; E87.29 Other acidosis; M48.56XA Collapsed vertebra, not elsewhere classified, lumbar region, initial encounter for fracture; G47.33 Obstructive sleep apnea (adult) (pediatric); J43.9 Emphysema, unspecified; I10 Essential (primary) hypertension; G89.4 Chronic pain syndrome; E11.65 Type 2 diabetes mellitus with hyperglycemia; E66.9 Obesity, unspecified; E78.00 Pure hypercholesterolemia, unspecified; I25.10 Atherosclerotic heart disease of native coronary artery without angina pectoris; J44.89 Other specified chronic obstructive pulmonary disease; Z51.5 Encounter for palliative care; Z79.51 Long term (current) use of inhaled steroids; Z82.49 Family history of ischemic heart disease and other diseases of the circulatory system; Z83.3 Family history of diabetes mellitus; Z86.73 Personal history of transient ischemic attack (TIA), and cerebral infarction without residual deficits; Z87.81 Personal history of (healed) traumatic fracture; Z99.81 Dependence on supplemental oxygen; Z68.39 Body mass index [BMI] 39.0-39.9, adult
CPT/HCPCS: 36415; 36600; 71045; 72100; 72148; 74176; 80048; 80053; 80305; 82803; 82948; 83036; 83605; 83735; 83880; 84100; 84145; 84443; 84484; 85025; 85027; 85730; 86140; 87040; 87086; 87186; 93005; 94640; 94660; 94664; 96372; 99285; G0378; J0692; J1100; J1171; J1650; J1885; J2270; J3301; J2360

== ENCOUNTER 2025-07-16 19:37 | Inpatient (IN) | payer OTHER ==
[~2025-07-16] VITALS: Ht 165.1 cm; Wt 95.8 kg
--- NOTE | 2025-07-16 19:48 | ERN ---
General Chief Complaint: Shortness of Breath Stated Complaint: SOB Time Seen by MD: 19:38 History of Present Illness Initial Comments 60-year-old male history of COPD here for evaluation of acute onset of shortness a breath. Patient states he is developing shortness a breath starting earlier this morning. He had one neb treatment which mom alleviated some of however progressive a point where he decided to come to the emergency room this evening for evaluation. He is on baseline oxygen 3.5 L at home. Allergies: Coded Allergies: Iodinated Contrast Media (Unverified Allergy, Severe, SHORTNESS OF BREATH, 02/06/21) Home Meds Reported Medications Lansoprazole (Lansoprazole) 15 Mg Tab.rap.dr, 15 MG PO ACBKFST 04/13/25 Bupropion HCl (Bupropion Xl) 150 Mg Tab.er.24h, 1 TAB PO DAILY for 30 Days, #30 TAB 0 Refills 02/09/25 Losartan Potassium (Losartan Potassium) 25 Mg Tablet, 1 TAB PO DAILY for 30 Days, #30 TAB 0 Refills 02/09/25 Atorvastatin Calcium (LIPITOR) 10 Mg Tab, 1 TAB PO DAILY for 30 Days, #30 TAB 0 Refills 10/16/24 Montelukast Sodium (Montelukast Sodium) 10 Mg Tablet, 1 TAB PO DAILY for 30 Days, #30 TAB 0 Refills 10/16/24 Past Medical History Past Medical History: Asthma, COPD, Diabetes-Type II, High Cholesterol, Hypertension Medical History Other: CHRONIC BACK PAIN Past Surgical History: Other Surgical History Other: LUNG BX Family History Family History: DM, HTN Social History Social History: Smokers, Drugs, Lives with family Respiratory: (+) short of breath Review of Systems: was completed, & the rest were negative. Physical Exam General Appearance: (+) mild distress Orientation: (+) alert, (+) oriented x 3 Eye: bilateral eye normal inspection, bilateral eye PERRL, bilateral eye EOMI Ear, Nose, Throat: (+) hearing grossly normal, (+) normal ENT inspection, (+) moist mucous membraine Neck: (+) normal inspection, (+) supple Respiratory: (+) chest non-tender, (+) stridor, (+) other documentation Respiratory Comment Unable to speak in full sentences. Acutely short of breath. Able to answer questions appropriately. Minimal perioral cyanosis. On 3.5 L nasal cannula. Gastrointestinal: (+) soft, (+) non-tender Results Laboratory and Microbiology Lab and Micro Result Laboratory Tests Test 07/16/25 19:08 07/16/25 20:09 07/16/25 20:11 Influenza Type A Antigen Negative For Type A Influenza Type B Antigen Negative For Type B SARS-CoV-2 Antigen (Rapid) PRESUMPTIVE NEGATIVE Blood Gas Specimen Type Arterial Arterial Blood pH 7.343 (7.350-7.450) Arterial Blood Partial Pressure CO2 94 mmHg (35-48) *H Arterial Blood Partial Pressure O2 73.4 mmHg (83.0-108.0) L Arterial Blood HCO3 49.7 mmol/L (21.0-28.0) H Arterial Blood Oxygen Saturation 95.3 % (94.0-98.0) Arterial Blood Base Excess 19.1 mmol/L (-2.0-3.0) H Hemoglobin (Blood Gas) 13.0 g/dL (13.5-17.5) L Sodium (Blood Gas) 139 MMOL/L (136-145) Bedside Potassium (Blood Gas) 3.7 MMOL/L (3.4-4.5) Bedside Chloride (Blood Gas) 88 MMOL/L (98-107) *L Bedside Glucose (Blood Gas) 145 MG/DL (65-95) H Bedside Ionized Calcium (Blood Gas) 1.19 MMOL/L (1.15-1.33) Bedside Lactic Acid (Blood Gas) 0.94 MMOL/L (0.36-0.75) H Blood Gas Temperature 37.0 CELSIUS (35.5-37.0) Blood Gas Flow-by 3.00 L/min (0.00-15.00) Blood Gas Vent Mode NC,32 (ROOM AIR) FiO2 32.0 % Blood Gas Specimen Comment LR,RN MANY White Blood Count 8.7 K/uL (4.8-10.8) Red Blood Count 4.30 MIL/uL (4.50-6.20) L Hemoglobin 11.9 g/dL (14.0-18.0) L Hematocrit 41.9 % (42-54) L Mean Corpuscular Volume 97.4 fL (79-99) Mean Corpuscular Hemoglobin 27.7 pg (27.0-33.0) Mean Corpuscular Hemoglobin Concent 28.4 g/dL (32.0-36.0) L Red Cell Distribution Width 13.2 % (11.0-15.5) Platelet Count 175 K/uL (130-400) Mean Platelet Volume 9.8 fL (7.5-10.5) Immature Granulocyte % (Auto) 0.3 % (0-1) Neutrophils (%) (Auto) 75.5 % (40.0-77.0) Lymphocytes (%) (Auto) 12.1 % (21.0-51.0) L Monocytes (%) (Auto) 11.7 % (3.0-13.0) Eosinophils (%) (Auto) 0.2 % (0.0-8.0) Basophils (%) (Auto) 0.2 % (0.0-5.0) Neutrophils # (Auto) 6.5 K/uL (1.8-7.7) Lymphocytes # (Auto) 1.1 K/uL (1.0-4.8) Monocytes # (Auto) 1.0 K/uL (0.1-1.0) Eosinophils # (Auto) 0.02 K/uL (0.00-0.70) Basophils # (Auto) 0.02 K/uL (0.00-0.20) Absolute Immature Granulocyte (auto 0.03 K/uL (0-1) Nucleated Red Blood Cells 0.0 % (0.0-0.19) Red Blood Cell Morphology See comments Sodium Level 141 mmol/L (136-145) Potassium Level 3.6 mmol/L (3.5-5.1) Chloride Level 94 mmol/L (101-111) L Carbon Dioxide Level 50 mmol/L (21-32) *H Blood Urea Nitrogen 14 mg/dL (7-18) Creatinine 0.5 mg/dL (0.5-1.3) Glomerular Filtration Rate Calc 115 mL/min (>90) Random Glucose 129 mg/dL (70-105) H Lactic Acid Level 1.1 mmol/L (0.8-2.5) Total Calcium 9.0 mg/dL (8.5-10.1) Troponin I High Sensitivity 7 ng/L (4-75) B-Type Natriuretic Peptide 37 pg/mL (0-100) MDM 60-year-old male here for evaluation of COPD exacerbation. We will get labs and imaging and swabs. Disposition pending results of labs and imaging. Will admit at this time. Pt retaining pco2 and elevated bicarb. Will start bipap and admit. ph7.34 ED Course Orders Procedure Category Date Status Time 12 Lead Ekg Tracing- EKG 07/16/25 Complete Technical 19:38 B-Type Natriuretic LAB 07/16/25 Complete Peptide 19:38 Cbc With Differential LAB 07/16/25 Complete 19:38 Basic Metabolic Panel LAB 07/16/25 Complete 19:38 Lactic Acid LAB 07/16/25 Complete 19:38 Troponin I High LAB 07/16/25 Complete Sensitivity 19:38 Chest 1vw RAD 07/16/25 Resulted 19:38 Influenza Type A & B, LAB 07/16/25 Complete Rapid 19:38 Covid19 (Sars Antigen LAB 07/16/25 Complete Rapid) 19:38 Arterial Blood Gas RT 07/16/25 Transmitted 19:44 Ipratropium/Albuterol PHA 07/16/25 Complete Neb (Duoneb) 20:00 Arterial Blood Gas LAB 07/16/25 Complete Arterial + 20:09 Bipap Settings RT 07/16/25 Transmitted 20:31 Methylprednisolone PHA 07/16/25 Complete Succ 125mg (Solu-Medr 21:00 Zosyn 3.375gm+Ns 50ml PHA 07/16/25 Complete (Zosyn 3.375gm+Ns 21:00 Methocarbamol PHA 07/16/25 In Process (Methocarbamol) 22:00 Current Medications Medications (Trade) Dose Ordered Sig/Nicolasa Route PRN Reason Start Time Stop Time Status Last Admin Dose Admin Albuterol (DUOneb) 6 udvial ONCE ONCE IH 07/16/25 20:00 07/16/25 20:01 DC 07/16/25 20:15 Methocarbamol (methoCARBamol) 1,000 mg ONCE ONCE PO 07/16/25 22:00 07/16/25 22:01 07/16/25 21:50 Methylprednisolone Sodium Succinate (Solu-medROL 125MG) 125 mg ONCE ONCE IVP 07/16/25 21:00 07/16/25 21:03 DC 07/16/25 21:15 Piperacillin Sod/ Tazobactam Sod (Zosyn 3.375gm+NS 50ml) 3.375 gm ONCE ONCE IV 07/16/25 21:00 07/16/25 21:03 DC 07/16/25 21:15 Vital Signs Date Time Temp Pulse Resp B/P (MAP) Pulse Ox O2 Delivery O2 Flow Rate FiO2 07/16/25 20:26 84 22 Nasal Cannula 3.0 32 07/16/25 20:05 84 22 07/16/25 19:39 98.4 88 18 124/64 95 Room Air 2.0 DX & DISP Disposition: Inpatient Departure Impression: Primary Impression: COPD exacerbation Condition: Stable Referrals: ERASMO BARKER MD (PCP) KARLENE CAMPOS MD Jul 16, 2025 19:48
--- NOTE | 2025-07-16 19:56 | EKG ---
[facility] Test Date: 2025-07-16 Test Time: 19:52:48 Pat Name: CHRISTINE CURTIS Department: ED Room: 230 Gender: M Volunteer Services Director: [id number] : 1965 Requested By: KARLENE CAMPOS Order Number: [id number] Reading MD: Rancho Ricks Measurements Intervals Olar Rate: 82 P: 40 PA: 151 QRS: -24 QRSD: 92 T: 62 QT: 387 QTc: 452 Interpretive Statements Sinus rhythm ST elevation, consider anterior injury Electronically Signed On 07-17-2025 13:16:29 MANAGER OF WAREHOUSE by Rancho Ricks Please click the below link to view image of tracing.
[2025-07-16 20:05] VITALS: PULSE 84; RESP 22
[2025-07-16 20:10] LABS: ABG BASE EXCESS 19.1 mmol/L (-2.0-3.0); ABG HCO3 49.7 mmol/L (21.0-28.0); ABG OXYGEN SATURATION 95.3 % (94.0-98.0); ABG PCO2 94 mmHg (35-48); ABG PH 7.343 (7.350-7.450); CARBON MONOXIDE 1.2 % (0.5-1.5); PO2, ARTERIAL BG 73.4 mmHg (83.0-108.0); TEMPERATURE, CELSIUS BG 37.0 CELSIUS (35.5-37.0); VENT MODE, BG NC,32 (ROOM AIR)
[2025-07-16 20:26] VITALS: PULSE 84; RESP 22; O2SAT 93
[2025-07-16 20:41] LABS: IMMATURE GRANULOCYTE ABSOLUTE 0.03 K/uL (0-1); NUCLEATED RED BLOOD CELLS 0.0 % (0.0-0.19); PLATELET COUNT (AUTO) 175 K/uL (130-400); RED BLOOD CELL COUNT(AUTO) 4.30 MIL/uL (4.50-6.20); RED CELL DISTRIBUTION WIDTH 13.2 % (11.0-15.5); WHITE BLOOD COUNT (AUTO) 8.7 K/uL (4.8-10.8)
--- NOTE | 2025-07-16 20:48 | HMCIMG ---
EXAM: CR Chest, single view CLINICAL HISTORY: Shortness of breath. COMPARISON: Prior chest radiograph dated May 02, 2025. FINDINGS: Mild cardiomegaly with bilateral pulmonary congestion. Subsegmental atelectasis in the bilateral lower lobes. Linear fibrotic band and groundglass opacities in the right parahilar region. No pleural effusion or pneumothorax. No acute osseous abnormality. IMPRESSION: Mild cardiomegaly with bilateral pulmonary congestion. Subsegmental atelectasis in the bilateral lower lobes. Linear fibrotic band and groundglass opacities in the right parahilar region. Compared to the prior study, there is an interval progression of the pulmonary congestion and subsegmental atelectasis in the left lower lobe. /[place]
[2025-07-16 20:52] LABS: CREATININE 0.5 mg/dL (0.5-1.3); GLOMERULAR FILTR. RATE CALC 115.0 mL/min (>90); GLUCOSE,RANDOM 129.0 mg/dL (70-105); SODIUM SERUM 141.0 mmol/L (136-145); UREA NITROGEN, BLOOD 14.0 mg/dL (7-18)
[2025-07-16 21:05] LABS: COVID19 (SARS ANTIGEN RAPID) PRESUMPTIVE NEGATIVE (NEGATIVE); INFLUENZA TYPE A Negative For Type A (NEGATIVE); INFLUENZA TYPE B Negative For Type B (NEGATIVE)
[2025-07-16] MEDS: ZOSYN 3.375GM +NS 50ML IV ONE (21:15)
[2025-07-16] MEDS ORDERED: guaiFENesin-DM 200/20MG 10ML PO PRN (22:30)
[2025-07-16] MEDS ORDERED: LACTULOSE 20 GM/30 ML UDCUP PO PRN (22:30)
[2025-07-16] MEDS: Solu-medROL 40MG VIAL IVP SCH (22:30)
[2025-07-16] MEDS ORDERED: NITROGLYCERIN 0.4 MG SL TAB SL PRN (22:30)
[2025-07-16] MEDS ORDERED: MAG/ALUM/SIMETH 30 ML UDCUP PO PRN (22:30)
[2025-07-16] MEDS ORDERED: DEXTROSE 50%-WATER 50 ML DISP.SYRIN IV PRN (22:30)
[2025-07-16] MEDS: ZOSYN 3.375GM +NS 50ML IVPB SCH (22:30)
[2025-07-16] MEDS ORDERED: GLUCAGON 1MG KIT 1 MG ML IM PRN (22:30)
--- NOTE | 2025-07-16 22:35 | HP ---
[facility] HISTORY & PHYSICAL Date Patient Seen: Jul 16, 2025 Time of Visit: 22:25 Supervising Physician: RANDELL HEALY Primary Care Physician: DR EARL ZIMMERMAN Outpatient Specialists: [ ] Inpatient Consults: [ ] PROBLEM LIST: 1. COPD EXACERBATION, POA 2. ACUTE HYPERCAPNIC RESPIRATORY FAILURE SECONDARY TO COPD EXACERBATION, POA 3. RIGHT LUNG PNEUMONIA, POA 4. DIABETES TYPE 2, POA 5. MORBID OBESITY, POA CHIEF COMPLAINT: Shortness of breath, productive cough HPI: Patient is a 60-year-old male with past medical history significant for COPD, on home oxygen, diabetes type 2, hyperlipidemia, hypertension, chronic back pain, and a surgical history of lung biopsy, presented to the emergency department complaining of worsening shortness of breath for one week associated with productive cough. Patient reports that for the past seven days, he has been experiencing some increased work of breathing associated with productive cough with greenish sputum. Tonight, patient decided come to the emergency department for further evaluation and treatment. Patient denies fever, chills, nausea, vomiting, diarrhea, chest pain, dizziness, or any other symptoms. The workup in the emergency department shows a CO2 of 50, pCO2 of 94, PO2 of 73.4, COVID and flu negative. Chest x-ray showed mild cardiomegaly with bilateral pulmonary congestion. Subsegmental atelectasis in the bilateral lower lobes. Linear fibrotic been and ground-glass opacities in the right parahilar region. Compared to prior study, varies interval progression of the pulmonary congestion and subsegmental atelectasis in the left lower lobe. In the emergency department, patient received DuoNebs treatment, methocarbamol 1000 mg p.o., [id number] mg IV, Zosyn 3.375 g IV. Patient will be admitted to PCCU for close monitoring. PAST MEDICAL HX: see above PAST SURGICAL HX: noncontributory SOCIAL HISTORY: No tobacco, ETOH, or illicit drug use Coded Allergies: Iodinated Contrast Media (Unverified Allergy, Severe, SHORTNESS OF BREATH, 02/06/21) REVIEW OF SYSTEMS: 12 point ROS reviewed with patient. Pertinent positives mentioned above. Otherwise negative. PHYSICAL EXAM: GENERAL: alert, weak, awake oriented x 3 HEENT: EOMI, Sclera non icteric, moist mucosa NECK: Supple, no JVD, trachea midline LUNGS: Diminished breath sounds bilaterally, BiPAP HEART: Regular rate and rhythm. Normal S1 and S2, without murmurs ABD: Abdomen soft, nontender. Bowel sounds present EXT: No clubbing cyanosis or edema NEURO: Alert and oriented to person, follows commands Vital Signs (last 8hr) Date Time Temp Pulse Resp B/P (MAP) Pulse Ox O2 Delivery O2 Flow Rate FiO2 07/16/25 22:22 92 20 134/70 94 Nasal Cannula* 4 36 07/16/25 20:26 84 22 Nasal Cannula 3.0 32 07/16/25 20:05 84 22 07/16/25 19:39 98.4 88 18 124/64 95 Room Air 2.0 LABS: Hematology Labs: Test 07/16/25 20:11 Range/Units White Blood Count 8.7 4.8-10.8 K/uL Red Blood Count 4.30 L 4.50-6.20 MIL/uL Hemoglobin 11.9 L 14.0-18.0 g/dL Hematocrit 41.9 L 42-54 % Mean Corpuscular Volume 97.4 79-99 fL Mean Corpuscular Hemoglobin 27.7 27.0-33.0 pg Mean Corpuscular Hemoglobin Concent 28.4 L 32.0-36.0 g/dL Red Cell Distribution Width 13.2 11.0-15.5 % Platelet Count 175 130-400 K/uL Mean Platelet Volume 9.8 7.5-10.5 fL Immature Granulocyte % (Auto) 0.3 0-1 % Neutrophils (%) (Auto) 75.5 40.0-77.0 % Lymphocytes (%) (Auto) 12.1 L 21.0-51.0 % Monocytes (%) (Auto) 11.7 3.0-13.0 % Eosinophils (%) (Auto) 0.2 0.0-8.0 % Basophils (%) (Auto) 0.2 0.0-5.0 % Neutrophils # (Auto) 6.5 1.8-7.7 K/uL Lymphocytes # (Auto) 1.1 1.0-4.8 K/uL Monocytes # (Auto) 1.0 0.1-1.0 K/uL Eosinophils # (Auto) 0.02 0.00-0.70 K/uL Basophils # (Auto) 0.02 0.00-0.20 K/uL Absolute Immature Granulocyte (auto 0.03 0-1 K/uL Nucleated Red Blood Cells 0.0 0.0-0.19 % Red Blood Cell Morphology See comments Chemistry Labs: Test 07/16/25 20:11 Range/Units Sodium Level 141 136-145 mmol/L Potassium Level 3.6 3.5-5.1 mmol/L Chloride Level 94 L 101-111 mmol/L Carbon Dioxide Level 50 *H 21-32 mmol/L Blood Urea Nitrogen 14 7-18 mg/dL Creatinine 0.5 0.5-1.3 mg/dL Glomerular Filtration Rate Calc 115 >90 mL/min Random Glucose 129 H 70-105 mg/dL Lactic Acid Level 1.1 0.8-2.5 mmol/L Total Calcium 9.0 8.5-10.1 mg/dL Troponin I High Sensitivity 7 4-75 ng/L B-Type Natriuretic Peptide 37 0-100 pg/mL DIAGNOSTICS / RADIOLOGY RESULTS: [ ] PLAN: Admit patient PCCU Keep patient on a BiPAP at the current settings Repeat ABG in 24 hours Methylprednisone 40 mg IV every8 hours DuoNebs every 6 hours Zosyn 3.375 g IV every8 hours Obtain blood culture x2 Obtain sputum culture Accu-Cheks a.c. HS Insulin coverage per sliding scale Obtain hemoglobin A1c Dietary consult. NEURO: Minimize central acting medications as possible. Maintain fall precautions, adequate lighting during the day PULMONARY: Supplemental 02 as needed. Maintain aspiration precautions at all times Keep patient on BiPAP DuoNebs every 6 hours Methylprednisone 40 mg IV every 8 hours CARDIOVASCULAR: Follow hemodynamics. Vital signs per facility protocol GI & NUTRITION: Continue with nutritional support. Continue stool softeners and laxatives as needed. KIDNEYS & ELECTROLYTES: Strict monitoring of intake, output and overall fluid balance. Avoid nephrotoxic medications to the extent possible. Medications to be dosed according to renal function. Monitor electrolytes and replace as needed ENDOCRINE: Maintain blood glucose between 100-180 at all times. Hypoglycemia protocol in place Hemoglobin A1c Insulin coverage per sliding scale INFECTIOUS DISEASE: Trend temperature, WBC and procalcitonin level Follow cultures, deescalate antibiotics as soon as possible. Panculture if new onset fever Zosyn 3.375 g IV every 8 hours Obtain blood culture x2 Sputum culture ONCOLOGY/HEMATOLOGY/COAGULATION: Monitor for s/s of bleeding Monitor hemoglobin, coagulation studies as needed SKIN: Pressure ulcer prevention per facility protocol Specialty mattress ORTHO/REHAB: Continue PT/OT Prophylaxis: Continue GI and DVT prophylaxis Code Status: Full Resuscitation Disposition: TBD Other: Case discussed with Dr.Schwarcz Randell Knapp and the above plan was formulated. BRAYAN GERARD Jul 16, 2025 22:35
[2025-07-16 22:50] VITALS: PULSE 82; RESP 34; O2SAT 97
[2025-07-17] VITALS (10 sets, daily range): BP systolic 126–136; BP diastolic 70–87; PULSE 69–88; RESP 18–31; TEMP 97.5–98.5; O2SAT 90–95
[2025-07-17] MEDS ORDERED: 0.9%NACL 50ML IV SCH
[2025-07-17 01:04] LABS: ABG BASE EXCESS 17.7 mmol/L (-2.0-3.0); ABG HCO3 46.8 mmol/L (21.0-28.0); ABG OXYGEN SATURATION 91.2 % (94.0-98.0); ABG PCO2 79 mmHg (35-48); ABG PH 7.392 (7.350-7.450); CARBON MONOXIDE 1.6 % (0.5-1.5); PO2, ARTERIAL BG 58.5 mmHg (83.0-108.0); TEMPERATURE, CELSIUS BG 37.0 CELSIUS (35.5-37.0)
[2025-07-17 04:25] LABS: ASPARTATE AMINOTRANSFERASE 16.0 U/L (10-37); CREATININE 0.6 mg/dL (0.5-1.3); GLOMERULAR FILTR. RATE CALC 109.0 mL/min (>90); GLUCOSE,RANDOM 197.0 mg/dL (70-105); SODIUM SERUM 141.0 mmol/L (136-145); TOTAL PROTEIN, SERUM 7.5 g/dL (6.0-8.3); UREA NITROGEN, BLOOD 8.0 mg/dL (7-18)
[2025-07-17 07:26] LABS: ABG BASE EXCESS 15.9 mmol/L (-2.0-3.0); ABG HCO3 46.6 mmol/L (21.0-28.0); ABG OXYGEN SATURATION 87.8 % (94.0-98.0); ABG PCO2 87 mmHg (35-48); ABG PH 7.345 (7.350-7.450); PO2, ARTERIAL BG 59.6 mmHg (83.0-108.0); TEMPERATURE, CELSIUS BG 37.0 CELSIUS (35.5-37.0); VENT MODE, BG BIPAP 16-8 (ROOM AIR)
--- NOTE | 2025-07-17 08:57 | PN ---
[facility] PROGRESS NOTE Date Patient Seen: Jul 17, 2025 Time of Visit: 08:57 Supervising Physician: [ ] Primary Care Physician: DR EARL ZIMMERMAN Outpatient Specialists: [ ] Inpatient Consults: [ ] PROBLEM LIST: 1. COPD EXACERBATION, POA 2. ACUTE HYPERCAPNIC RESPIRATORY FAILURE SECONDARY TO COPD EXACERBATION, POA 3. RIGHT LUNG PNEUMONIA, POA 4. DIABETES TYPE 2, POA 5. MORBID OBESITY, POA INTERVAL HISTORY: [ ] REVIEW OF SYSTEMS: 12 point ROS reviewed with patient. Pertinent positives mentioned above. Otherwise negative. PHYSICAL EXAM: GENERAL: alert, weak, awake oriented x 3 HEENT: EOMI, Sclera non icteric, moist mucosa NECK: Supple, no JVD, trachea midline LUNGS: Diminished breath sounds bilaterally, BiPAP HEART: Regular rate and rhythm. Normal S1 and S2, without murmurs ABD: Abdomen soft, nontender. Bowel sounds present EXT: No clubbing cyanosis or edema NEURO: Alert and oriented to person, follows commands Vital Signs (last 8hr) Date Time Temp Pulse Resp B/P (MAP) Pulse Ox O2 Delivery O2 Flow Rate FiO2 07/17/25 08:09 97.5 76 22 134/70 93 BIPAP 07/17/25 06:26 69 30 07/17/25 06:24 69 31 40 07/17/25 03:55 97.5 86 23 126/86 93 CPAP LABS: Hematology Labs: Test 07/16/25 20:11 Range/Units White Blood Count 8.7 4.8-10.8 K/uL Red Blood Count 4.30 L 4.50-6.20 MIL/uL Hemoglobin 11.9 L 14.0-18.0 g/dL Hematocrit 41.9 L 42-54 % Mean Corpuscular Volume 97.4 79-99 fL Mean Corpuscular Hemoglobin 27.7 27.0-33.0 pg Mean Corpuscular Hemoglobin Concent 28.4 L 32.0-36.0 g/dL Red Cell Distribution Width 13.2 11.0-15.5 % Platelet Count 175 130-400 K/uL Mean Platelet Volume 9.8 7.5-10.5 fL Immature Granulocyte % (Auto) 0.3 0-1 % Neutrophils (%) (Auto) 75.5 40.0-77.0 % Lymphocytes (%) (Auto) 12.1 L 21.0-51.0 % Monocytes (%) (Auto) 11.7 3.0-13.0 % Eosinophils (%) (Auto) 0.2 0.0-8.0 % Basophils (%) (Auto) 0.2 0.0-5.0 % Neutrophils # (Auto) 6.5 1.8-7.7 K/uL Lymphocytes # (Auto) 1.1 1.0-4.8 K/uL Monocytes # (Auto) 1.0 0.1-1.0 K/uL Eosinophils # (Auto) 0.02 0.00-0.70 K/uL Basophils # (Auto) 0.02 0.00-0.20 K/uL Absolute Immature Granulocyte (auto 0.03 0-1 K/uL Nucleated Red Blood Cells 0.0 0.0-0.19 % Red Blood Cell Morphology See comments Chemistry Labs: Test 07/17/25 05:47 07/17/25 03:46 07/16/25 20:11 Range/Units Whole Blood Glucose 177 H 70-110 MG/DL Sodium Level 141 136-145 mmol/L Potassium Level 3.9 3.5-5.1 mmol/L Chloride Level 94 L 101-111 mmol/L Carbon Dioxide Level 43 *H 21-32 mmol/L Blood Urea Nitrogen 8 7-18 mg/dL Creatinine 0.6 0.5-1.3 mg/dL Glomerular Filtration Rate Calc 109 >90 mL/min Random Glucose 197 #H 70-105 mg/dL Hemoglobin A1c 5.6 4.0-6.0 % Estimated Average Glucose (eAG) 114 70-126 mg/dL Total Calcium 9.0 8.5-10.1 mg/dL Total Bilirubin 0.4 0.2-1.0 mg/dL Aspartate Amino Transf (AST/SGOT) 16 10-37 U/L Alanine Aminotransferase (ALT/SGPT) 24 12-78 U/L Alkaline Phosphatase 100 50-136 U/L Total Protein 7.5 6.0-8.3 g/dL Albumin 3.6 3.5-5.0 g/dL Lactic Acid Level 1.1 0.8-2.5 mmol/L Troponin I High Sensitivity 7 4-75 ng/L B-Type Natriuretic Peptide 37 0-100 pg/mL DIAGNOSTICS / RADIOLOGY RESULTS: [ ] PLAN: Admit patient PCCU Keep patient on a BiPAP at the current settings Repeat ABG in 24 hours Methylprednisone 40 mg IV every8 hours DuoNebs every 6 hours Zosyn 3.375 g IV every8 hours Obtain blood culture x2 Obtain sputum culture Accu-Cheks a.c. HS Insulin coverage per sliding scale Obtain hemoglobin A1c Dietary consult. NEURO: Minimize central acting medications as possible. Maintain fall precautions, adequate lighting during the day PULMONARY: Supplemental 02 as needed. Maintain aspiration precautions at all times Keep patient on BiPAP DuoNebs every 6 hours Methylprednisone 40 mg IV every 8 hours CARDIOVASCULAR: Follow hemodynamics. Vital signs per facility protocol GI & NUTRITION: Continue with nutritional support. Continue stool softeners and laxatives as needed. KIDNEYS & ELECTROLYTES: Strict monitoring of intake, output and overall fluid balance. Avoid nephrotoxic medications to the extent possible. Medications to be dosed according to renal function. Monitor electrolytes and replace as needed ENDOCRINE: Maintain blood glucose between 100-180 at all times. Hypoglycemia protocol in place Hemoglobin A1c Insulin coverage per sliding scale INFECTIOUS DISEASE: Trend temperature, WBC and procalcitonin level Follow cultures, deescalate antibiotics as soon as possible. Panculture if new onset fever Zosyn 3.375 g IV every 8 hours Obtain blood culture x2 Sputum culture ONCOLOGY/HEMATOLOGY/COAGULATION: Monitor for s/s of bleeding Monitor hemoglobin, coagulation studies as needed SKIN: Pressure ulcer prevention per facility protocol Specialty mattress ORTHO/REHAB: Continue PT/OT Prophylaxis: Continue GI and DVT prophylaxis Code Status: Full Resuscitation Disposition: TBD Other: Case discussed with Dr.Schwarcz Rick Knapp and the above plan was formula clyde. ANASTACIO MALHOTRA PAC Jul 17, 2025 08:57
[2025-07-17] MEDS: ENOXAPARIN SODIUM 40 MG/0.4 ML SYRINGE SQ SCH (09:51)
--- NOTE | 2025-07-17 11:27 | NUR ---
DCP: HOME vs [facility] Pt resides in his home with son Zafar. Pt on SSD and requires assistance with ADLS, home management, meal prep and transportation. Pt has provider daily theisidra Aguilar who assists as needed. Pt or daughter transport to MD appts. Pt has O2, walker, w/c, hospital bed shower chair and bsc. Pt seen at [facility] with Dr Chavez for medical care and meds. Pt uses [facility] for rx. Pt signed consent for [facility] if [facility] [place] [facility]. Consent on chart
--- NOTE | 2025-07-17 12:15 | NUR ---
THIS PATIENT HAS DECIDED TO LEAVE AMA AT THIS TIME. EDUCATION WAS PROVIDED ON THE RISK OF HIM LEAVING AGAINST MEDICAL ADVICE. HE VOICE UNDERSTANDING OF THE RISK AND HAS SIGNED THE AMA FORM AND IT WAS PLACED WITHIN CHART. PENDING SIGNATURE OF DR. THOMAS. [place] WAS MADE AWARE WELL.
--- NOTE | 2025-07-17 23:28 | HMCSR ---
APPROVED REPORT EXAM: Limited two-dimensional and M-mode echocardiogram with Doppler and color Doppler. INDICATION ICD: I51.7 Cardiomegaly 2D Dimensions RVDd 3.7 cm LVED Vol(simp.) 73.0 mL LVES Vol(simp.) 34.0 mL LVEF(%, simp.) 54 % LA ESV INDEX (BP) 31.70 mL/m2 Deformation Strain Apical 4 -17.8 % Apical 2 -23.2 % Apical 3 -17.2 % Global Strain -19.4 % Aortic Valve AoV Vmax 1.3 m/s Ao Peak GR 6.7 mmHg LVOT Vmax 1.0 m/s AoV VTI 0.3 m Ao Mean GR 4.0 mmHg LVOT VTI 0.24 m Mitral Valve MV E Vmax 42.9 cm/s DECEL Time 216 ms MV A Vmax 66.1 cm/s P 1/2 T 46 ms E/A ratio 0.6 MVA (PHT) 4.8 cm2 TDI E/E' Medial 5.6 E/E' Lateral 4.5 Medial E' Peak V 7.63 cm/s Lateral E' Peak V 9.56 cm/s Tricuspid Valve TR Vmax 1.0 m/s RVSP 4.0 mmHg TR Peak GR 4.0 mmHg Left Ventricle The left ventricle is normal in size. No regional wall motion abnormalities noted. Mild concentric left ventricular hypertrophy. Left ventricular systolic function is low normal, estimated LVEF 50 to 55%. Stage I diastolic dysfunction. Right Ventricle The right ventricle is normal size. The right ventricular systolic function is normal. Atria The left atrium size is normal. Right atrium is not well visualized. Aortic Valve Aortic valve is probably trileaflet. No aortic regurgitation is present. There is no aortic valvular stenosis. Mitral Valve The mitral valve is normal in structure and function. There is no mitral valve regurgitation noted. There is no mitral valve stenosis. Tricuspid Valve Tricuspid valve is not well visualized. Pulmonic Valve Pulmonic valve is not well visualized. Great Vessels IVC is not well visualized. Pericardium No pericardial effusion. Other Information Quality : Limited/Follow-up Conclusion The cardiac chambers are normal in size. Mild concentric left ventricular hypertrophy. No regional wall motion abnormalities noted. Left ventricular systolic function is low normal, estimated LVEF 50 to 55%. Stage I diastolic dysfunction. Right-sided pressures could not be accurately assessed. No pericardial effusion.
== END 2025-07-17 12:18 | disposition left against medical advice (07) | DRG 193 ==
LOC: EDH 19:37 → EDHIP 22:15 → 2AH 23:53
PROVIDERS: ADMIT Internal Medicine Pulmonary Disease; ATTEND Internal Medicine Pulmonary Disease
PROC: 5A09357 Assistance with Respiratory Ventilation, Less than 24 Consecutive Hours, Continuous Positive Airway Pressure (ICD-10-PCS; principal; 2025-07-16)
PROC: 5A09357 Assistance with Respiratory Ventilation, Less than 24 Consecutive Hours, Continuous Positive Airway Pressure (ICD-10-PCS; 2025-07-17)
DX: J15.9 Unspecified bacterial pneumonia (principal); J96.02 Acute respiratory failure with hypercapnia; Z99.81 Dependence on supplemental oxygen; J44.0 Chronic obstructive pulmonary disease with (acute) lower respiratory infection; E11.9 Type 2 diabetes mellitus without complications; E66.01 Morbid (severe) obesity due to excess calories; I10 Essential (primary) hypertension; J44.1 Chronic obstructive pulmonary disease with (acute) exacerbation; J98.11 Atelectasis; E78.00 Pure hypercholesterolemia, unspecified; Z82.49 Family history of ischemic heart disease and other diseases of the circulatory system; Z83.3 Family history of diabetes mellitus; Z68.35 Body mass index [BMI] 35.0-35.9, adult
CPT/HCPCS: 36415; 36600; 71045; 80048; 80053; 82435; 82803; 82947; 82948; 83036; 83605; 83880; 84132; 84295; 84484; 85018; 85025; 87040; 87426; 87804; 93005; 93308; 93356; 94640; 94660; 94664; 96374; 96375; 99285; G0378; J1650; J1815; J2543; J2919